=== PATIENT | female | born 1930 | race Caucasian/White ===

== ENCOUNTER 2017-06-16 13:03 | Emergency (ER) | payer BC ==
[2017-06-16 13:18] VITALS: BP 173/48; PULSE 66; TEMP 97.9; BMI 40.1
[2017-06-16] MEDS ORDERED: ACETAMINOPHEN WITH CODEINE 300MG/30MG TABLET PO ONE (13:53)
[2017-06-16] MEDS ORDERED: ACETAMINOPHEN WITH CODEINE 300MG/30MG TABLET ONE (13:56)
--- NOTE | 2017-06-16 14:11 | PDOC ---
History of Present Illness - General Chief Complaint: Back Pain Stated Complaint: INJURY Time Seen by Provider: 06/16/17 13:33 History Source: Patient Exam Limitations: No Limitations - History of Present Illness Initial Comments: 06/16/17 14:08 87 yr female lost her balance and fell on 06/05/17 injuring her buttock. Pt has continued pain to her buttock and right buttock to leg. neg abd pain neg chest or upper back pain. Pt taking tylenol without relief at home. Past History - Past Medical History Allergies/Adverse Reactions: Allergies Allergy/AdvReac Type Severity Reaction Status Date / Time metronidazole [From Flagyl] Allergy Severe Swelling Verified 06/16/17 13:12 Home Medications: Ambulatory Orders Allopurinol [Zyloprim -] 200 mg PO DAILY 03/19/14 Amlodipine Besylate [Norvasc -] 10 mg PO DAILY 03/19/14 Aspirin [ASA -] 325 mg PO DAILY 03/19/14 Atorvastatin Ca [Lipitor] 40 mg PO HS 03/19/14 Cholecalciferol (Vitamin D3) [Vitamin D3] 1,000 unit PO DAILY 03/19/14 Enalapril Maleate [Vasotec -] 20 mg PO BID 03/19/14 Furosemide [Lasix -] 20 mg PO DAILY 03/19/14 Glipizide Xl [Glucotrol Xl -] 2.5 mg PO DAILY 03/19/14 Losartan/Hydrochlorothiazide [Losartan-Hctz 100-12.5 mg Tab] 1 each PO DAILY Metoprolol Succinate [Toprol XL -] 100 mg PO DAILY 03/19/14 Multivitamins [Multivit ([facility] Formulary)] 1 tab PO DAILY 03/19/14 Guar Gum [Benefiber] 1 each PO BID #0 packet 05/21/14 Acetaminophen W/ Codeine #3 [Tylenol # 3 -] 1 - 2 tab PO Q6H PRN #12 tablet MDD 6 tabs 06/16/17 Anemia: No Asthma: No Cancer: No Cardiac Disorders: Yes (STENT 14 YRS AGO) CVA: No COPD: No CHF: No Dementia: No Diabetes: Yes GI Disorders: No Disorders: Yes (ONE FUNCTIONING KIDNEY) HTN: Yes Hypercholesterolemia: Yes Liver Disease: No Seizures: No Thyroid Disease: No - Surgical History Abdominal Surgery: No Appendectomy: Yes Cardiac Surgery: Yes (ANGIO) Cholecystectomy: No Lung Surgery: No Neurologic Surgery: No Orthopedic Surgery: No - Suicide/Smoking/Psychosocial Hx Smoking Status: No Smoking History: Never smoked Have you smoked in the past 12 months: No Number of Cigarettes Smoked Daily: 0 Hx Alcohol Use: No Drug/Substance Use Hx: No Substance Use Type: None *Physical Exam - Vital Signs Last Vital Signs Temp Pulse Resp BP Pulse Ox 97.9 F 66 22 173/48 99 06/16/17 13:13 06/16/17 13:13 06/16/17 13:13 06/16/17 13:13 06/16/17 13:13 - Physical Exam General Appearance: Yes: Nourished, Appropriately Dressed HEENT: positive: EOMI, JACLYN Neck: positive: Supple Respiratory/Chest: positive: Lungs Clear, Normal Breath Sounds Cardiovascular: positive: Regular Rhythm, Regular Rate Gastrointestinal/Abdominal: positive: Normal Bowel Sounds, Soft. negative: Tender Lymphatic: negative: Adenopathy Musculoskeletal: positive: Normal Inspection, Vertebral Tenderness (coccyx bone , skin intact no bruising or deformity no swelling ) Integumentary: positive: Normal Color, Dry, Warm, Bruising (right upper arm non tender) Neurologic: positive: Fully Oriented, Alert, Normal Mood/Affect, Normal Response , Motor Strength 5/5 ED Treatment Course - RADIOLOGY Radiology Studies Ordered: Category Date Time Status LUMBAR SPINE CT W/O CONTRAST [CT] Stat CT Scan 06/16/17 13:[address] WITHOUT CONTRAST [CT] Stat CT Scan 06/16/17 13:53 Ordered - Medications Given in the ED: ED Medications Discontinued Medications Generic Name Dose Route Start Last Admin Trade Name Amina PRN Reason Stop Dose Admin Acetaminophen/Codeine Phosphate 1 tab 06/16/17 13:53 06/16/17 13:57 Tylenol # 3 - PO 06/16/17 13:54 1 tab ONCE ONE Administration Medical Decision Making - Medical Decision Making 06/16/17 14:09 cc: lost balance on the step in her apt building while turning around and fell backwards landing on her buttock pt has continued pain to her tailbone no urine or bowel dysfunction no abd pain pain with walking to her right posterior leg and buttock no evidence of bruising noted. pt has bruise to his upper arm that is healing well pt ambulates with a cane pt has no lower back/CVA tenderness 06/16/17 16:[address] is negative lumbar CT is negative 06/16/17 16:43 *DC/Admit/Observation/Transfer Diagnosis at time of Disposition: Coccyx contusion Qualifiers: Encounter type: initial encounter Qualified Code(s): S30.0XXA - Contusion of lower back and pelvis, initial encounter - Discharge Dispostion Disposition: HOME Condition at time of disposition: Good - Prescriptions Prescriptions: Acetaminophen W/ Codeine #3 [Tylenol # 3 -] 1 - 2 tab PO Q6H PRN #12 tablet MDD 6 tabs PRN Reason: Severe Pain - Referrals Referrals: Walker Padilla MD [Primary Care Provider] - - Patient Instructions Additional Instructions: follow with your medical doctor on Sunday or Sunday take tylenol #3 for severe pain eat with this medicine do not drink alcohol, drive or operate machinery while taking this medication - Post Discharge Activity
== END 2017-06-16 16:49 | disposition home or self-care (01) ==
LOC: JERFT 13:03
DX: S30.0XXA Contusion of lower back and pelvis, initial encounter (principal); W10.8XXA Fall (on) (from) other stairs and steps, initial encounter; Y93.89 Activity, other specified; Y92.038 Other place in apartment as the place of occurrence of the external cause; I25.10 Atherosclerotic heart disease of native coronary artery without angina pectoris; I10 Essential (primary) hypertension; Z95.5 Presence of coronary angioplasty implant and graft; E11.9 Type 2 diabetes mellitus without complications; Z79.84 Long term (current) use of oral hypoglycemic drugs; E78.00 Pure hypercholesterolemia, unspecified; N28.89 Other specified disorders of kidney and ureter
CPT/HCPCS: 72131-TC; 72192-TC; 99281-25

== ENCOUNTER 2018-02-13 16:49 | Inpatient (IN) | payer BC ==
--- NOTE | 2018-02-13 17:02 | PDOC ---
Rapid Medical Evaluation Time Seen by Provider: 02/13/18 16:59 Medical Evaluation: Allergies Allergy/AdvReac Type Severity Reaction Status Date / Time metronidazole [From Flagyl] Allergy Severe Swelling Verified 06/16/17 13:12 I have performed a brief in-person evaluation of this patient. The patient presents with a chief complaint of: cough, hoarse voice x [address] Woodward Sunday Pertinent physical exam findings: dry cough. I have ordered the following: labs, CXR, UA The patient will proceed to the ED for further evaluation. Discharge Disposition - Diagnosis Cough, Hoarseness of voice - Referrals - Patient Instructions - Post Discharge Activity
--- NOTE | 2018-02-13 17:44 | PDOC ---
History of Present Illness - General Chief Complaint: Cold Symptoms Stated Complaint: HEAD PAIN Time Seen by Provider: 02/13/18 16:59 - History of Present Illness Initial Comments: This is an 88-year-old female with a significant past medical history. She has a history of breast cancer status post mastectomy one year ago. History of diabetes type 2, history of coronary artery disease with stents, history of renal atrophy. She presents for evaluation of 4 days of hoarseness in her voice headache intermittent chest pressure and abdominal pain. She states she also had a fever at home of 100. She complains of night sweats and chills as well. 02/13/18 17:40 Past History - Past Medical History Allergies/Adverse Reactions: Allergies Allergy/AdvReac Type Severity Reaction Status Date / Time metronidazole [From Flagyl] Allergy Severe Swelling Verified 02/13/18 17:02 Home Medications: Ambulatory Orders Allopurinol [Zyloprim -] 200 mg PO DAILY 03/19/14 Amlodipine Besylate [Norvasc -] 10 mg PO DAILY 03/19/14 Aspirin [ASA -] 325 mg PO DAILY 03/19/14 Atorvastatin Ca [Lipitor] 40 mg PO HS 03/19/14 Cholecalciferol (Vitamin D3) [Vitamin D3] 1,000 unit PO DAILY 03/19/14 Enalapril Maleate [Vasotec -] 20 mg PO BID 03/19/14 Furosemide [Lasix -] 20 mg PO DAILY 03/19/14 Glipizide Xl [Glucotrol Xl -] 2.5 mg PO DAILY 03/19/14 Losartan/Hydrochlorothiazide [Losartan-Hctz 100-12.5 mg Tab] 1 each PO DAILY Metoprolol Succinate [Toprol XL -] 100 mg PO DAILY 03/19/14 Multivitamins [Multivit ([facility] Formulary)] 1 tab PO DAILY 03/19/14 Guar Gum [Benefiber] 1 each PO BID #0 packet 05/21/14 Acetaminophen W/ Codeine #3 [Tylenol # 3 -] 1 - 2 tab PO Q6H PRN #12 tablet MDD 6 tabs 06/16/17 Anemia: No Asthma: No Cancer: No Cardiac Disorders: Yes (STENT 14 YRS AGO) CVA: No COPD: No CHF: No Dementia: No Diabetes: Yes GI Disorders: No Disorders: Yes (ONE FUNCTIONING KIDNEY) HTN: Yes Hypercholesterolemia: Yes Liver Disease: No Seizures: No Thyroid Disease: No - Surgical History Abdominal Surgery: No Appendectomy: Yes Cardiac Surgery: Yes (ANGIO) Cholecystectomy: No Lung Surgery: No Neurologic Surgery: No Orthopedic Surgery: No - Suicide/Smoking/Psychosocial Hx Smoking Status: No Smoking History: Never smoked Have you smoked in the past 12 months: No Number of Cigarettes Smoked Daily: 0 Information on smoking cessation initiated: No Hx Alcohol Use: No Drug/Substance Use Hx: No Substance Use Type: None Review of Systems - Review of Systems Constitutional: Yes: See HPI, Chills, Fever, Loss of Appetite, Night Sweats, Weakness HEENTM: Yes: Throat Pain Respiratory: Yes: Cough, Shortness of Breath Cardiac (ROS): Yes: See HPI, Chest Pain, Chest Tightness ABD/GI: Yes: Poor Appetite : No: Burning, Dysuria, Pain, Urgency Musculoskeletal: Yes: Muscle Pain, Muscle Weakness Integumentary: No: Bruising, Change in Color Neurological: Yes: Headache Psychiatric: Yes: Change in Appetite Endocrine: Yes: Increased Urine. No: Excessive Sweating *Physical Exam - Vital Signs Last Vital Signs Temp Pulse Resp BP Pulse Ox 98.0 F 78 16 138/78 100 02/13/18 17:01 02/13/18 17:01 02/13/18 17:01 02/13/18 17:01 02/13/18 17:01 - Physical Exam Comments: GENERAL: The patient is awake, alert, and fully oriented, in no acute distress. HEAD: Normal with no signs of trauma. EYES: Pupils equal, round and reactive to light, extraocular movements intact, sclera anicteric, conjunctiva clear. ENT: Ears normal, nares patent, oropharynx clear without exudates. Moist mucous membranes. NECK: Normal range of motion, supple without lymphadenopathy, JVD, or masses. LUNGS: Breath sounds equal, clear to auscultation bilaterally. No wheezes, and no crackles. HEART: Regular rate and rhythm, normal S1 and S2 without murmur, rub or gallop. ABDOMEN: Soft, right upper quadrant tenderness, normoactive bowel sounds. No guarding, no rebound. No masses. EXTREMITIES: Normal range of motion, no edema. No clubbing or cyanosis. No cords, erythema, or tenderness. There is 1+ symmetric pitting edema the anterior lower legs NEUROLOGICAL: Cranial nerves II through XII grossly intact. Normal speech, normal gait. PSYCH: Normal mood, normal affect. SKIN: Warm, Dry, normal turgor, no rashes or lesions noted. 02/13/18 17:43 Medical Decision Making - Medical Decision Making Is patient requires a cardiac workup I will transfer to the main emergency room. 02/13/18 17:43 *DC/Admit/Observation/Transfer Diagnosis at time of Disposition: Cough, Hoarseness of voice, Chest pressure - Referrals - Patient Instructions - Post Discharge Activity
[2018-02-13 19:29] LABS: HEMATOCRIT 33.1 % (32.4-45.2); HEMOGLOBIN 10.7 GM/dL (10.7-15.3); LYMPH % 16.1 % (8-40); MCH 31.7 pg (25.7-33.7); MCHC 32.3 g/dl (32.0-36.0); MEAN CELL VOLUME 98.3 fl (80-96); MEAN PLT VOLUME 10.5 fl (7.5-11.1); MONO % 6.6 % (3.8-10.2); NEUT % 74.3 % (42.8-82.8); PLATELET COUNT 189 K/MM3 (134-434); RBC 3.37 M/mm3 (3.60-5.2); WHITE BLOOD COUNT 7.4 K/mm3 (4.0-10.0)
[2018-02-13 20:38] LABS: URINE APPEARANCE CLEAR; URINE BILIRUBIN NEGATIVE (<2.0 mg/dL); URINE COLOR STRAW; URINE GLUCOSE (UA) 1+ (NEGATIVE); URINE KETONE NEGATIVE (NEGATIVE); URINE LEUK ESTERASE NEGATIVE (NEGATIVE); URINE NITRITE NEGATIVE (NEGATIVE); URINE UROBILINOGEN NEGATIVE mg/dL (0.2-1.0)
[2018-02-13 21:06] LABS: ALBUMIN 2.9 g/dl (3.4-5.0); ANION GAP 9 (8-16); BLOOD UREA NITROGEN 55 mg/dL (7-18); CALCIUM 8.7 mg/dL (8.5-10.1); CHLORIDE 115 mmol/L (98-107); CO2 25 mmol/L (21-32); CREATININE 2.8 mg/dL (0.55-1.02); GLUCOSE,RANDOM 80 mg/dL (74-106); POTASSIUM 4.3 mmol/L (3.5-5.1); SGOT/AST 15 U/L (15-37); SGPT/ALT 15 U/L (12-78); SODIUM 149 mmol/L (136-145)
[2018-02-13 21:07] LABS: ALK PHOS 68 U/L (45-117); BILIRUBIN,TOTAL 0.5 mg/dL (0.2-1.0); TOT PROT 6.2 g/dl (6.4-8.2)
--- NOTE | 2018-02-13 21:25 | PDOC ---
*Physical Exam - Vital Signs Last Vital Signs Temp Pulse Resp BP Pulse Ox 98.0 F 78 16 138/78 100 02/13/18 17:01 02/13/18 17:01 02/13/18 17:01 02/13/18 17:01 02/13/18 17:01 - Physical Exam General Appearance: Yes: Nourished <KathiaSebastien - Last Filed: 02/14/18 00:44> - Vital Signs Last Vital Signs Temp Pulse Resp BP Pulse Ox 98.0 F 78 16 138/78 100 02/13/18 17:01 02/13/18 17:01 02/13/18 17:01 02/13/18 17:01 02/13/18 17:01 - Physical Exam Comments: 02/13/18 21:33 GENERAL: Well developed, well nourished. Awake and alert. No acute distress. HEENT: Normocephalic, atraumatic. PERRLA, EOMI. No conjunctival pallor. Sclera are non- icteric. Moist mucous membranes. Oropharynx is clear. NECK: Supple. Full ROM. No JVD. Carotid pulses 2+ and symmetric, without bruits. No thyromegaly. No lymphadenopathy. CARDIOVASCULAR: Regular rate and rhythm. No murmurs, rubs, or gallops. Distal pulses are 2+ and symmetric. PULMONARY: No evidence of respiratory distress. Lungs clear to auscultation bilaterally. No wheezing, rales or rhonchi. ABDOMINAL: Soft. Non-tender. Non-distended. No rebound or guarding. No organomegaly. Normoactive bowel sounds. MUSCULOSKELETAL Normal range of motion at all joints. No bony deformities or tenderness. No CVA tenderness. EXTREMITIES: No cyanosis. No clubbing. No edema. No calf tenderness. SKIN: Warm and dry. Normal capillary refill. No rashes. No jaundice. NEUROLOGICAL: Alert, awake, appropriate. Cranial nerves 2-12 intact. No deficits to light touch and temperature in face, upper extremities and lower extremities. No motor deficits in the in face, upper extremities and lower extremities. Normoreflexic in the upper and lower extremities. Normal speech. Toes are downgoing bilaterally. PSYCHIATRIC: Cooperative. Good eye contact. Appropriate mood and affect. <Gage Manley - Last Filed: 02/14/18 01:40> Heart Score/ECG Review #1 02/14/18 01:40 EKG done at 17:31 Vent rate 65 bpm Normal sinus rhythm Left axis deviation Left bundle branch block Abnormal ECG <Gage Manley - Last Filed: 02/14/18 01:40> ED Treatment Course - LABORATORY CBC & Chemistry Diagram: 02/13/18 19:05 02/13/18 20:12 - ADDITIONAL ORDERS Additional order review: Laboratory Results 02/13/18 02/13/18 02/13/18 20:12 20:12 19:05 Sodium 149 H Cancelled Potassium 4.3 Cancelled Chloride 115 H Cancelled Carbon Dioxide 25 Cancelled Anion Gap 9 Cancelled BUN 55 H Cancelled Creatinine 2.8 H Cancelled Creat Clearance w eGFR 15.98 Cancelled Random Glucose 80 Cancelled Calcium 8.7 Cancelled Total Bilirubin 0.5 Cancelled AST 15 Cancelled ALT 15 Cancelled Alkaline Phosphatase 68 Cancelled Creatine Kinase 55 Cancelled Troponin I 0.04 Cancelled Total Protein 6.2 L Cancelled Albumin 2.9 L Cancelled 02/13/18 19:05 RBC 3.37 L MCV 98.3 H MCHC 32.3 RDW 14.0 MPV 10.5 Neutrophils % 74.3 Lymphocytes % 16.1 D Monocytes % 6.6 Eosinophils % 2.0 Basophils % 1.0 <Sebastien Seo - Last Filed: 02/14/18 00:44> - LABORATORY CBC & Chemistry Diagram: 02/13/18 19:05 02/13/18 20:12 - ADDITIONAL ORDERS Additional order review: Laboratory Results 02/13/18 02/13/18 02/13/18 20:12 20:12 19:05 Sodium 149 H Cancelled Potassium 4.3 Cancelled Chloride 115 H Cancelled Carbon Dioxide 25 Cancelled Anion Gap 9 Cancelled BUN 55 H Cancelled Creatinine 2.8 H Cancelled Creat Clearance w eGFR 15.98 Cancelled Random Glucose 80 Cancelled Calcium 8.7 Cancelled Total Bilirubin 0.5 Cancelled AST 15 Cancelled ALT 15 Cancelled Alkaline Phosphatase 68 Cancelled Creatine Kinase 55 Cancelled Troponin I 0.04 Cancelled Total Protein 6.2 L Cancelled Albumin 2.9 L Cancelled 02/13/18 19:05 RBC 3.37 L MCV 98.3 H MCHC 32.3 RDW 14.0 MPV 10.5 Neutrophils % 74.3 Lymphocytes % 16.1 D Monocytes % 6.6 Eosinophils % 2.0 Basophils % 1.0 <Gage Manley - Last Filed: 02/14/18 01:40> Progress Note - Progress Note Progress Note: The patient is an 88 year old female with a significant PMH of HTN, hyperlipidemia, and cardiac stent who presents to the emergency department from [facility] for evaluation of increasingly worsening headache with associated ear pressure for the past few weeks. She also notes associated periodic nasal congestion with her ear pressure which she states rarely drains. She describes her headache as an intermittent pressure localized in the temporal regions bilaterally which has been steadily worsening, prompting her visit. She also reports some mild intermittent chest pressure every now and then but denies chest pain. The patient notes she has been following with Dr. Woodward who has told her she has fluid in her ears. She states she has a follow up appointment soon. The patient denies shortness of breath and dizziness. Denies fever, chills, nausea, vomit, diarrhea and constipation. Denies dysuria, frequency, urgency and hematuria. Allergies: Metronidazole Past surgical history: Angioplasty. Appendectomy. Social history: No reported cigarette, alcohol, or drug use. PCP: Dr. Padilla ROS: CONSTITUTIONAL: Absent: fever, chills, diaphoresis, generalized weakness, malaise, loss of appetite HEENT: (+) Ear pressure. (+) Nasal congestion. Absent: rhinorrhea, throat pain, throat swelling, difficulty swallowing, mouth swelling, ear pain, eye pain, visual Changes CARDIOVASCULAR: (+) Chest pressure. Absent: chest pain, syncope, palpitations, irregular heart rate, lightheadedness , peripheral edema RESPIRATORY: Absent: cough, shortness of breath, dyspnea with exertion, orthopnea, wheezing, stridor, hemoptysis GASTROINTESTINAL: Absent: abdominal pain, abdominal distension, nausea, vomiting, diarrhea, constipation, melena, hematochezia GENITOURINARY: Absent: dysuria, frequency, urgency, hesitancy, hematuria, flank pain, genital pain MUSCULOSKELETAL: Absent: myalgia, arthralgia, joint swelling SKIN: Absent: rash, itching, pallor HEMATOLOGIC/IMMUNOLOGIC: Absent: easy bleeding, easy bruising, lymphadenopathy, frequent infections ENDOCRINE: Absent: unexplained weight gain, unexplained weight loss, heat intolerance, cold intolerance NEUROLOGIC: (+) Temporal headache. Absent: focal weakness or paresthesias, dizziness, unsteady gait, seizure, mental status changes, bladder or bowel incontinence PSYCHIATRIC: Absent: anxiety, depression, suicidal or homicidal ideation, hallucinations. <Gage Manley - Last Filed: 02/14/18 01:40> *DC/Admit/Observation/Transfer - Discharge Dispostion Decision to Admit order: Yes <Sebastien Seo - Last Filed: 02/14/18 00:44> - Attestations Scribe Attestion: 02/13/18 21:33 Documentation prepared by Gage Manley, acting as biomedical equipment specialist for Sebastien Seo DO. <Gage Manley - Last Filed: 02/14/18 01:40> Diagnosis at time of Disposition: Cough, Hoarseness of voice, Chest pressure, ISELA (acute kidney injury) - Discharge Dispostion Condition at time of disposition: Stable - Referrals Referrals: Walker Padlila MD [Primary Care Provider] - - Patient Instructions - Post Discharge Activity
[2018-02-13 21:33] LABS: URINE PROTEIN 3+ (NEGATIVE)
[2018-02-13 22:32] LABS: EPI CELLS RARE /HPF (FEW); URINE MUCUS RARE
--- NOTE | 2018-02-14 00:58 | HP ---
CHIEF COMPLAINT: Headache, Chest Pain PCP: Dr. Padilla HISTORY OF PRESENT ILLNESS: This is a 88 y/o woman who presents to the ED with multiple complaints headache , midsternal chest pain with coughing x today. Patient describes the chest pain as non-radiating, sharp, worse with cough. Patient reports being treated for ear fullness by her ENT for over a month, with intermittent relief. Patient reports having a subjective fever 100.0 at home. Patient denies chills, SOB, AP , N/V/D, constipation, dysuria. ER course was notable for: (1) Trop I 0.04 (2) BUN 55, Cr 2.8 (3) Chest Xray- Cardiomegaly, Atelectasis right base, RUL, L- Lung clear Recent Travel: None PAST MEDICAL HISTORY: DM CKD (renal atrophy) DAGOBERTO DJD HLD HTN Breast Ca (no Chemo, no RT) Depression PAST SURGICAL HISTORY: R- partial mastectomy Social History: Smoking: Never Alcohol: None Drugs: None Family History: Allergies metronidazole [From Flagyl] Allergy (Severe, Verified 02/13/18 17:02) Swelling HOME MEDICATIONS: Home Medications Medication Instructions Recorded Allopurinol [Zyloprim -] 200 mg PO DAILY 03/19/14 Amlodipine Besylate [Norvasc -] 10 mg PO DAILY 03/19/14 Aspirin [ASA -] 325 mg PO DAILY 03/19/14 Atorvastatin Ca [Lipitor] 40 mg PO HS 03/19/14 Cholecalciferol (Vitamin D3) 1,000 unit PO DAILY 03/19/14 [Vitamin D3] Enalapril Maleate [Vasotec -] 20 mg PO BID 03/19/14 Furosemide [Lasix -] 20 mg PO DAILY 03/19/14 Glipizide Xl [Glucotrol Xl -] 2.5 mg PO DAILY 03/19/14 Losartan/Hydrochlorothiazide 1 each PO DAILY 03/19/14 [Losartan-Hctz 100-12.5 mg Tab] Metoprolol Succinate [Toprol XL -] 100 mg PO DAILY 03/19/14 Multivitamins [Multivit ([facility] 1 tab PO DAILY 03/19/14 Formulary)] Guar Gum [Benefiber] 1 each PO BID #0 packet 05/21/14 Calcium Carbonate/Vitamin D3 1 each PO DAILY 02/13/18 [Calcium 500 + Vit D 200 Caplet] Levothyroxine [Synthroid -] 25 mcg PO DAILY 02/13/18 REVIEW OF SYSTEMS CONSTITUTIONAL: fever, Absent: chills, diaphoresis, generalized weakness, malaise, loss of appetite, weight change HEENT: ear fullness Absent: rhinorrhea, nasal congestion, throat pain, throat swelling, difficulty swallowing, mouth swelling, ear pain, eye pain, visual changes CARDIOVASCULAR: chest pain Absent: syncope, palpitations, irregular heart rate, lightheadedness, peripheral edema RESPIRATORY: cough Absent: shortness of breath, dyspnea with exertion, orthopnea, wheezing, stridor , hemoptysis GASTROINTESTINAL: Absent: abdominal pain, abdominal distension, nausea, vomiting, diarrhea, constipation, melena, hematochezia GENITOURINARY: Absent: dysuria, frequency, urgency, hesitancy, hematuria, flank pain, genital pain MUSCULOSKELETAL: Absent: myalgia, arthralgia, joint swelling, back pain, neck pain SKIN: Absent: rash, itching, pallor HEMATOLOGIC/IMMUNOLOGIC: Absent: easy bleeding, easy bruising, lymphadenopathy, frequent infections ENDOCRINE: Absent: unexplained weight gain, unexplained weight loss, heat intolerance, cold intolerance NEUROLOGIC: headache Absent: focal weakness or paresthesias, dizziness, unsteady gait, seizure, mental status changes, bladder or bowel incontinence PSYCHIATRIC: Absent: anxiety, depression, suicidal or homicidal ideation, hallucinations. PHYSICAL EXAMINATION Vital Signs - 24 hr 02/13/18 02/13/18 17:01 21:37 Temperature 98.0 F Pulse Rate 78 Pulse Rate [ 94 H Apical] Respiratory 16 21 Rate Blood Pressure 138/78 Blood Pressure 157/80 [Left Arm] O2 Sat by Pulse 100 98 Oximetry (%) GENERAL: Awake, alert, and fully oriented, in no acute distress. HEAD: Normal with no signs of trauma. EYES: Pupils equal, round and reactive to light, extraocular movements intact, sclera anicteric, conjunctiva clear. No lid lag. EARS, NOSE, THROAT: Ears normal, nares patent, oropharynx clear without exudates. Dry mucous membranes. NECK: Normal range of motion, supple without lymphadenopathy, JVD, or masses. LUNGS: Breath sounds diminished to right base. No wheezes, and no crackles. No accessory muscle use. HEART: Regular rate and rhythm, normal S1 and S2 without murmur, rub or gallop. ABDOMEN: Obese, soft, nontender, not distended, normoactive bowel sounds, no guarding, no rebound, no masses. No hepatomegaly or splenomegaly. MUSCULOSKELETAL: Normal range of motion at all joints. No bony deformities or tenderness. No CVA tenderness. UPPER EXTREMITIES: 2+ pulses, warm, well-perfused. No cyanosis. No clubbing. No peripheral edema. LOWER EXTREMITIES: 2+ pulses, warm, well-perfused. No calf tenderness. No peripheral edema. NEUROLOGICAL: Cranial nerves II-XII intact. Normal speech. Gait not observed. PSYCHIATRIC: Cooperative. Good eye contact. Appropriate mood and affect. SKIN: Warm, dry, normal turgor, no rashes or lesions noted, normal capillary refill. Laboratory Results - last 24 hr 02/13/18 02/13/18 02/13/18 19:05 19:05 20:12 WBC 7.4 RBC 3.37 L Hgb 10.7 Hct 33.1 MCV 98.3 H MCH 31.7 MCHC 32.3 RDW 14.0 Plt Count 189 D MPV 10.5 Absolute Neuts (auto) 5.5 Neutrophils % 74.3 Lymphocytes % 16.1 D Monocytes % 6.6 Eosinophils % 2.0 Basophils % 1.0 Nucleated RBC % 0 Sodium Cancelled Potassium Cancelled Chloride Cancelled Carbon Dioxide Cancelled Anion Gap Cancelled BUN Cancelled Creatinine Cancelled Creat Clearance w eGFR Cancelled Random Glucose Cancelled Calcium Cancelled Total Bilirubin Cancelled AST Cancelled ALT Cancelled Alkaline Phosphatase Cancelled Creatine Kinase Cancelled Troponin I Cancelled Total Protein Cancelled Albumin Cancelled Urine Color Straw Urine Appearance Clear Urine pH 6.0 Ur Specific [place] 1.013 Urine Protein 3+ H Urine Glucose (UA) 1+ H Urine Ketones Negative Urine Blood Negative Urine Nitrite Negative Urine Bilirubin Negative Urine Urobilinogen Negative Ur Leukocyte Esterase Negative Urine WBC (Auto) 2 Urine RBC (Auto) <1 Ur Epithelial Cells Rare Urine Mucus Rare 02/13/18 02/13/18 20:12 20:12 WBC RBC Hgb Hct MCV MCH MCHC RDW Plt Count MPV Absolute Neuts (auto) Neutrophils % Lymphocytes % Monocytes % Eosinophils % Basophils % Nucleated RBC % Sodium 149 H Potassium 4.3 Chloride 115 H Carbon Dioxide 25 Anion Gap 9 BUN 55 H Creatinine 2.8 H Creat Clearance w eGFR 15.98 Random Glucose 80 Calcium 8.7 Total Bilirubin 0.5 AST 15 ALT 15 Alkaline Phosphatase 68 Creatine Kinase 55 Troponin I 0.04 Total Protein 6.2 L Albumin 2.9 L Urine Color Urine Appearance Urine pH Ur Specific [place] Urine Protein Urine Glucose (UA) Urine Ketones Urine Blood Urine Nitrite Urine Bilirubin Urine Urobilinogen Ur Leukocyte Esterase Urine WBC (Auto) Urine RBC (Auto) Ur Epithelial Cells Urine Mucus ASSESSMENT/PLAN: 88 y/o woman Placed in Observation for ISELA, Chest Pain r/o ACS. Plan: Place on Observation less likely ACS, CP increased on palpation likely costeochrondritis vs PNA Serial enzymes Appreciate Cardiology consult Appreciate Nephrology consult, hx renal atrophy, Cr increased compared to baseline Avoid nephrotoxic agents Hold Glipzide, HCTZ, Vasotec, Allupurinol 2/2 ISELA Continue other home meds Monitor CBC, BMP Echo Lipid Panel Problem List - Problem (1) Diabetes mellitus Code(s): E11.9 - TYPE 2 DIABETES MELLITUS WITHOUT COMPLICATIONS (2) HLD (hyperlipidemia) Code(s): E78.5 - HYPERLIPIDEMIA, UNSPECIFIED (3) HTN (hypertension) Code(s): I10 - ESSENTIAL (PRIMARY) HYPERTENSION (4) ISELA (acute kidney injury) Code(s): N17.9 - ACUTE KIDNEY FAILURE, UNSPECIFIED (5) Chest pressure Code(s): R07.89 - OTHER CHEST PAIN (6) Cough Code(s): R05 - COUGH Visit type - Emergency Visit Emergency Visit: Yes ED Registration Date: 02/13/18 Care time: The patient presented to the Emergency Department on the above date and was hospitalized for further evaluation of their emergent condition. - New Patient This patient is new to me today: Yes Date on this admission: 02/13/18 - Critical Care Critical Care patient: No Hospitalist Screening - Colonoscopy Questionnaire Colonoscopy Questionnaire: Colonoscopy Questionnaire - Patient: 50 - 75 years old and never had a screening colonoscopy: Unknown History of colon or rectal polyps, or CA: Unknown History of IBD, Crohn's disease or UC: Unknown History of abdominal radiation therapy as a child: Unknown - Relative: 1 with colon or rectal CA, or polyps at age 60 or younger: Unknown Colon or rectal CA diagnosed at age 45 or younger: Unknown Multiple relatives with colon or rectal CA: Unknown - Outcome: Screening Result: Negative Screen
[2018-02-14] MEDS ORDERED: SODIUM CHLORIDE 1,000 ML IV SCH ×2 (01:00→07:06)
[2018-02-14 06:49] LABS: BASO % 1.1 % (0-2.0); EOS % 1.1 % (0-4.5); HEMATOCRIT 31.6 % (32.4-45.2); HEMOGLOBIN 10.6 GM/dL (10.7-15.3); LYMPH % 16.8 % (8-40); MCH 32.7 pg (25.7-33.7); MCHC 33.4 g/dl (32.0-36.0); MEAN CELL VOLUME 97.9 fl (80-96); MEAN PLT VOLUME 10.5 fl (7.5-11.1); MONO % 5.7 % (3.8-10.2); NEUT % 75.3 % (42.8-82.8); PLATELET COUNT 166 K/MM3 (134-434); RBC 3.23 M/mm3 (3.60-5.2); RDW 13.7 % (11.6-15.6); WHITE BLOOD COUNT 9.6 K/mm3 (4.0-10.0)
[2018-02-14] MEDS: INSULIN SLIDING SCALE (NOVOLOG) 1 VIAL SQ SCH ×3 (06:57→18:03)
[2018-02-14] MEDS: LEVOTHYROXINE NA 25 MCG TABLET (FP) PO SCH (06:58)
[2018-02-14 07:03] LABS: CHLORIDE 115 mmol/L (98-107); POTASSIUM 4.3 mmol/L (3.5-5.1); SODIUM 149 mmol/L (136-145)
[2018-02-14 07:14] LABS: ANION GAP 13 (8-16); BLOOD UREA NITROGEN 51 mg/dL (7-18); CALCIUM 8.7 mg/dL (8.5-10.1); CO2 21 mmol/L (21-32); CREATININE 2.7 mg/dL (0.55-1.02); GLUCOSE,RANDOM 100 mg/dL (74-106)
[2018-02-14] MEDS ORDERED: ONDANSETRON 4 MG/2 ML VIAL IVPB PRN (08:36)
--- NOTE | 2018-02-14 08:36 | PN ---
Progress Note (short form) - Note Progress Note: Dr. Sweet to document today. A lot of nausea today.Renal lab is higher than usual but not much higher; follows with Dr. Araujo. No Headache today. CT head; sinus OK Chest CT: pleural fluid and ? infiltrate; Renal and Cardiology consult placed.
[2018-02-14] MEDS ORDERED: FUROSEMIDE 40 MG/4 ML INJECTABLE VIAL ONE (10:11)
[2018-02-14] MEDS: amLODIPine BESYLATE 10 MG TABLET (FP) PO SCH (10:29)
--- NOTE | 2018-02-14 10:30 | CON.CARD ---
Consult Consult Specialty:: Cardiology Referred by:: Walker Padilla MD Reason for Consultation:: Dyspnea - History of Present Illness Chief Complaint: Dyspnea History of Present Illness: 88 y/o woman h/o CAD s/p BMS LAD 11/22/1996, DM, HTN, hyperlipidemia, diastolic dysfunction, hypothyroidism, remote history PAF->SR [id number] on no ac, last saw Dr. Ruiz 01/22/2017 initally admitted for multiple complaints headache, midsternal chest pain with coughing overnight, Patient describes the chest pain as non-radiating, sharp, worse with cough, subjective fevers, noted to have acute on CKD, started on IVF overnight, reports dyspnea and orthopnea in AM, IVF d/amadou and IV Lasix administered with improvement in symptoms. Recent Travel: None PAST MEDICAL HISTORY: DM CKD (renal atrophy) DAGOBERTO DJD HLD HTN Breast Ca (no Chemo, no RT) Depression PAST SURGICAL HISTORY: R- partial mastectomy Social History: Smoking: Never Alcohol: None Drugs: None - History Source History Provided By: Medical Record Limitations to Obtaining History: Clinical Condition - Past Medical History Cardio/Vascular: Yes: CAD, CHF, HTN, Hyperlipdemia ...: No - Alcohol/Substance Use Hx Alcohol Use: No - Smoking History Smoking history: Never smoked Have you smoked in the past 12 months: No Aproximately how many cigarettes per day: 0 Home Medications - Allergies Allergies/Adverse Reactions: Allergies Allergy/AdvReac Type Severity Reaction Status Date / Time metronidazole [From Flagyl] Allergy Severe Swelling Verified 02/13/18 17:02 - Home Medications Home Medications: Ambulatory Orders Allopurinol [Zyloprim -] 200 mg PO DAILY 03/19/14 Amlodipine Besylate [Norvasc -] 10 mg PO DAILY 03/19/14 Aspirin [ASA -] 325 mg PO DAILY 03/19/14 Atorvastatin Ca [Lipitor] 40 mg PO HS 03/19/14 Cholecalciferol (Vitamin D3) [Vitamin D3] 1,000 unit PO DAILY 03/19/14 Enalapril Maleate [Vasotec -] 20 mg PO BID 03/19/14 Furosemide [Lasix -] 20 mg PO DAILY 03/19/14 Glipizide Xl [Glucotrol Xl -] 2.5 mg PO DAILY 03/19/14 Losartan/Hydrochlorothiazide [Losartan-Hctz 100-12.5 mg Tab] 1 each PO DAILY Metoprolol Succinate [Toprol XL -] 100 mg PO DAILY 03/19/14 Multivitamins [Multivit ([facility] Formulary)] 1 tab PO DAILY 03/19/14 Guar Gum [Benefiber] 1 each PO BID #0 packet 05/21/14 Calcium Carbonate/Vitamin D3 [Calcium 500 + Vit D 200 Caplet] 1 each PO DAILY Levothyroxine [Synthroid -] 25 mcg PO DAILY 02/13/18 Review of Systems - Review of Systems Cardiovascular: reports: Chest Pain Respiratory: reports: Orthopnea, SOB Vital Signs: Vital Signs Temperature 98.0 F 02/14/18 08:30 Pulse Rate 100 H 02/14/18 10:00 Respiratory Rate 28 H 02/14/18 10:00 Blood Pressure 160/108 02/14/18 10:00 O2 Sat by Pulse Oximetry (%) 98 02/13/18 21:37 Constitutional: Yes: No Distress, Calm, Thin Neck: Yes: Supple Respiratory: Yes: Regular, Diminished, On Nasal O2 Gastrointestinal: Yes: Normal Bowel Sounds, Soft Cardiovascular: Yes: Regular Rate and Rhythm JVD: No Carotid Bruit: No Heart Sounds: Yes: S1, S2 Murmur: Yes: Systolic Murmur, Grade 2 Edema: No - Other Data Labs, Other Data: CBC, BMP 02/14/18 06:03 02/14/18 06:03 Troponin, BNP 02/13/18 02/13/18 02/14/18 19:05 20:12 06:03 Troponin I Cancelled 0.04 0.05 Troponin, BNP 02/13/18 02/13/18 02/14/18 19:05 20:12 06:03 Troponin I Cancelled 0.04 0.05 NSR @ 67 incomplete LBBB Imaging - Results Chest X-ray: Report Reviewed (Congestion, right pleural fluid) Problem List - Problems (1) Acute on chronic diastolic heart failure Code(s): I50.33 - ACUTE ON CHRONIC DIASTOLIC (CONGESTIVE) HEART FAILURE (2) Hypothyroidism Code(s): E03.9 - HYPOTHYROIDISM, UNSPECIFIED Qualifiers: Hypothyroidism type: unspecified Qualified Code(s): E03.9 - Hypothyroidism , unspecified (3) [id number] kidney injury Code(s): N17.9 - ACUTE KIDNEY FAILURE, UNSPECIFIED; N18.9 - CHRONIC KIDNEY DISEASE, UNSPECIFIED Qualifiers: Acute renal failure type: unspecified (4) Diabetes mellitus Code(s): E11.9 - TYPE 2 DIABETES MELLITUS WITHOUT COMPLICATIONS Qualifiers: Diabetes mellitus type: type 2 Diabetes mellitus complication status: with kidney complications Diabetes mellitus complication detail: with chronic kidney disease (5) HLD (hyperlipidemia) Code(s): E78.5 - HYPERLIPIDEMIA, UNSPECIFIED Qualifiers: Hyperlipidemia type: pure hypercholesterolemia Qualified Code(s): E78.00 - Pure hypercholesterolemia, unspecified; E78.0 - Pure hypercholesterolemia (6) HTN (hypertension) Code(s): I10 - ESSENTIAL (PRIMARY) HYPERTENSION Qualifiers: Hypertension type: essential hypertension Qualified Code(s): I10 - Essential (primary) hypertension (7) Aortic stenosis, moderate Code(s): I35.0 - NONRHEUMATIC AORTIC (VALVE) STENOSIS Assessment/Plan Lexiscan MPI: 05/10/2016 Small mild anterior and inferior ischemia, LVEF 65% Echo: 06/25/2015 Echo: conc LVH, with normal LV systolic function mod LOUISE 1.1 cm^2, mild TR, MR, AR 1. Acute on chronic diastolic failure with mod 2. Acute on CKD 3. HTN/HCVD 4. Hyperlipidemia 5. Type 2 DM 6. Hypothyroidism 7. CAD, angina pectoris 8. Hyperuricemia P:1. Ruled out for SD, check BNP, TSH, ABG 2. IV diuresis with monitor diuretic response, renal function and electrolytes 3. Hold Hyzaar pending renal fxn recovery 4. Continue Norvasc 10 qd, ASA 325 qd, Lipitor 40 qhs, Toprol XL 100qd 5. F/u echocardiogram to assess ventricular and valve fxn 6. Thank you for consultative opportunity
[2018-02-14 10:36] LABS: CHOLESTEROL 164 mg/dL (50-200); HDL CHOLESTEROL 47 mg/dL (40-60); TRIGLYCERIDES 216 mg/dL (35-160)
[2018-02-14] MEDS ORDERED: FUROSEMIDE 40 MG/4 ML INJECTABLE VIAL IVPUSH ONE (10:45)
[2018-02-14] MEDS ORDERED: ALPRAZolam 0.25 MG TABLET PO ONE (10:45)
[2018-02-14 11:04] LABS: ARTERIAL BLD GAS O2 SATURATION 96.9 % (90-98.9); ARTERIAL BLOOD GAS BASE EXCESS -5.5 meq/l (-2-2); ARTERIAL BLOOD GAS PO2 94.1 mmHg (68-100)
[2018-02-14 11:12] LABS: ALLENS TEST POSITIVE
--- NOTE | 2018-02-14 12:02 | EKG ---
Test Reason : Blood Pressure : / mmHG Vent. Rate : 067 BPM Atrial Rate : 067 BPM P-R Int : 198 ms QRS Dur : 138 ms QT Int : 502 ms P-R-T Axes : 078 253 059 degrees QTc Int : 530 ms NORMAL SINUS RHYTHM RIGHT SUPERIOR AXIS DEVIATION NON-SPECIFIC INTRA-VENTRICULAR CONDUCTION BLOCK CANNOT RULE OUT ANTEROSEPTAL INFARCT , AGE UNDETERMINED ABNORMAL ECG WHEN COMPARED WITH ECG OF 13-FEB-2018 17:31, NO SIGNIFICANT CHANGE WAS FOUND Confirmed by UMNA VASQUEZ MD ([id number]) on 02/14/2018 12:02:09 PM Referred By: Confirmed By:MUNA VASQUEZ MD
--- NOTE | 2018-02-14 12:05 | EKG ---
Test Reason : Blood Pressure : / mmHG Vent. Rate : 065 BPM Atrial Rate : 065 BPM P-R Int : 194 ms QRS Dur : 140 ms QT Int : 468 ms P-R-T Axes : 078 -59 080 degrees QTc Int : 486 ms NORMAL SINUS RHYTHM LEFT AXIS DEVIATION LEFT BUNDLE BRANCH BLOCK ABNORMAL ECG WHEN COMPARED WITH ECG OF 19-MAR-2014 17:55, LEFT BUNDLE BRANCH BLOCK IS NOW PRESENT CRITERIA FOR SEPTAL INFARCT ARE NO LONGER PRESENT Confirmed by MUNA VASQUEZ MD ([id number]) on 02/14/2018 12:04:24 PM Referred By: WOJCIECH Confirmed By:MUNA VASQUEZ MD
--- NOTE | 2018-02-14 12:41 | PN ---
Progress Note, Physician Chief Complaint: Ms Lua says she feels better today, but is very tired. Complains that she was unable to sleep last night secondary to being in the ER. Currently is chest pain free and denies shortness of breath and nausea/vomiting. - Current Medication List Current Medications: Active Medications Amlodipine Besylate (Norvasc -) 10 mg PO DAILY [facility] Last Admin: 02/14/18 10:29 Dose: 10 mg Atorvastatin Calcium (Lipitor -) 40 mg PO HS [facility] Calcium Carbonate/Cholecalciferol (Os-Pedro 500+D -) 1 tab PO DAILY [facility] Cholecalciferol (Vitamin D3 -) 1,000 unit PO DAILY [facility] Heparin Sodium (Porcine) (Heparin -) 5,000 unit SQ BID [facility] Insulin Aspart (Novolog Vial Sliding Scale -) 1 vial SQ TIDAC [facility]; Protocol Last Admin: 02/14/18 11:23 Dose: Not Given Levothyroxine Sodium (Synthroid -) 25 mcg PO DAILY@0700 [facility] Last Admin: 02/14/18 06:58 Dose: 25 mcg Metoprolol Succinate (Toprol Xl -) 100 mg PO DAILY [facility] Last Admin: 02/14/18 10:28 Dose: 100 mg Multivitamins/Minerals/Vitamin C (Tab-A-Vit -) 1 tab PO DAILY [facility] Ondansetron HCl (Zofran Injection) 8 mg IVPB Q8H PRN PRN Reason: NAUSEA - Objective Vital Signs: Vital Signs Temperature 36.7 C 02/14/18 08:30 Pulse Rate 68 02/14/18 11:15 Respiratory Rate 20 02/14/18 11:15 Blood Pressure 138/72 02/14/18 11:15 O2 Sat by Pulse Oximetry (%) 98 02/13/18 21:37 Constitutional: Yes: No Distress, Calm, Obese Cardiovascular: Yes: Regular Rate and Rhythm. No: Gallop, Murmur, Rub Respiratory: Yes: Regular, CTA Bilaterally, On Nasal O2. No: Rales, Rhonchi, Wheezes Gastrointestinal: Yes: Normal Bowel Sounds, Soft. No: Distention, Tenderness Extremities: Yes: WNL Edema: No Labs: CBC, BMP 02/14/18 06:03 02/14/18 06:03 Problem List - Problems (1) Chest pressure Assessment/Plan: -chest pressure currently resolved -sounds atypical in nature -however needs to be ruled out -case d/w Dr Gutierrez, cardiac enzymes x3 Code(s): R07.89 - OTHER CHEST PAIN (2) Acute on chronic diastolic heart failure Assessment/Plan: -episode of shortness of breath this am -secondary to IVF -stop IVF -given IV lasix with good results -asymptomatic currenlty Code(s): I50.33 - ACUTE ON CHRONIC DIASTOLIC (CONGESTIVE) HEART FAILURE (3) [id number]-tysswqt kidney injury Assessment/Plan: -monitor -nephrology consulted Code(s): N17.9 - ACUTE KIDNEY FAILURE, UNSPECIFIED; N18.9 - CHRONIC KIDNEY DISEASE, UNSPECIFIED Qualifiers: Acute renal failure type: unspecified (4) Aortic stenosis, moderate Assessment/Plan: -no murmur heard during my exam Code(s): I35.0 - NONRHEUMATIC AORTIC (VALVE) STENOSIS (5) Diabetes mellitus Assessment/Plan: -change diet to low sodium diabetic diet -continue SSI -on glipizide as an outpatient Code(s): E11.9 - TYPE 2 DIABETES MELLITUS WITHOUT COMPLICATIONS Qualifiers: Diabetes mellitus type: type 2 Diabetes mellitus complication status: with kidney complications Diabetes mellitus complication detail: with chronic kidney disease (6) HLD (hyperlipidemia) Assessment/Plan: -continue statin Code(s): E78.5 - HYPERLIPIDEMIA, UNSPECIFIED Qualifiers: Hyperlipidemia type: pure hypercholesterolemia Qualified Code(s): E78.00 - Pure hypercholesterolemia, unspecified; E78.0 - Pure hypercholesterolemia (7) HTN (hypertension) Assessment/Plan: -elevated earlier today -most likely secondary to IVF -IVF stopped and given lasix -continue toprol xl and norvasc -monitor Code(s): I10 - ESSENTIAL (PRIMARY) HYPERTENSION Qualifiers: Hypertension type: essential hypertension Qualified Code(s): I10 - Essential (primary) hypertension (8) Hypothyroidism Assessment/Plan: -continue synthroid Code(s): E03.9 - HYPOTHYROIDISM, UNSPECIFIED Qualifiers: Hypothyroidism type: unspecified Qualified Code(s): E03.9 - Hypothyroidism , unspecified
--- NOTE | 2018-02-14 15:19 | CONSULT ---
Consult - text type - Consultation Consultation Note: Renal Consult for CKD This is a 88 year old woman with PMhx of CKD stage 4 (baseline Cr 2.7), DM, Hypertension, HLD, Breast Ca, Depression who presented with chest pain and pressure and admitted for r/o ACS. Pt reports that her chest discomfort is now improved. No fever or chills. + SOB this am after being on IVF overnight, was given IV Lasix with improvement in symptoms. Has good urine output w/o hematuria or dysuria. No N/V/D. On Lasix at home. No confusion or lethargy. No LE swelling. PMhx: as above Allergies: NKDA Family hx: NC Social hx: No T/A/D ROS: as per HPI Home Medications Medication Instructions Recorded Allopurinol [Zyloprim -] 200 mg PO DAILY 03/19/14 Amlodipine Besylate [Norvasc -] 10 mg PO DAILY 03/19/14 Aspirin [ASA -] 325 mg PO DAILY 03/19/14 Atorvastatin Ca [Lipitor] 40 mg PO HS 03/19/14 Cholecalciferol (Vitamin D3) 1,000 unit PO DAILY 03/19/14 [Vitamin D3] Enalapril Maleate [Vasotec -] 20 mg PO BID 03/19/14 Furosemide [Lasix -] 20 mg PO DAILY 03/19/14 Glipizide Xl [Glucotrol Xl -] 2.5 mg PO DAILY 03/19/14 Losartan/Hydrochlorothiazide 1 each PO DAILY 03/19/14 [Losartan-Hctz 100-12.5 mg Tab] Metoprolol Succinate [Toprol XL -] 100 mg PO DAILY 03/19/14 Multivitamins [Multivit ([facility] 1 tab PO DAILY 03/19/14 Formulary)] Guar Gum [Benefiber] 1 each PO BID #0 packet 05/21/14 Calcium Carbonate/Vitamin D3 1 each PO DAILY 02/13/18 [Calcium 500 + Vit D 200 Caplet] Levothyroxine [Synthroid -] 25 mcg PO DAILY 02/13/18 Vital Signs Temperature 97.5 F L 02/14/18 14:11 Pulse Rate 60 02/14/18 14:11 Respiratory Rate 24 02/14/18 14:11 Blood Pressure 123/92 02/14/18 14:11 O2 Sat by Pulse Oximetry (%) 97 02/14/18 11:30 Intake & Output 02/11/18 02/12/18 02/13/18 02/14/18 23:59 23:59 23:59 23:59 Weight 81.647 kg 79.379 kg NAD on NC O2 MMM, NO JVD Neck supple RRR, no M/R CTA soft NT/ND trace edema in LE, no clubbing or cyanosis CBC, BMP 02/14/18 06:03 02/14/18 06:03 Current Medications Amlodipine Besylate (Norvasc -) 10 mg PO DAILY [facility] Last Admin: 02/14/18 10:29 Dose: 10 mg Atorvastatin Calcium (Lipitor -) 40 mg PO HS [facility] Calcium Carbonate/Cholecalciferol (Os-Pedro 500+D -) 1 tab PO DAILY [facility] Cholecalciferol (Vitamin D3 -) 1,000 unit PO DAILY [facility] Heparin Sodium (Porcine) (Heparin -) 5,000 unit SQ BID [facility] Insulin Aspart (Novolog Vial Sliding Scale -) 1 vial SQ TIDAC [facility]; Protocol Last Admin: 02/14/18 11:23 Dose: Not Given Levothyroxine Sodium (Synthroid -) 25 mcg PO DAILY@0700 [facility] Last Admin: 02/14/18 06:58 Dose: 25 mcg Metoprolol Succinate (Toprol Xl -) 100 mg PO DAILY [facility] Last Admin: 02/14/18 10:28 Dose: 100 mg Multivitamins/Minerals/Vitamin C (Tab-A-Vit -) 1 tab PO DAILY [facility] Ondansetron HCl (Zofran Injection) 8 mg IVPB Q8H PRN PRN Reason: NAUSEA 88 year old woman with PMhx of CKD stage 4 (baseline Cr 2.7), DM, Hypertension, HLD, Breast Ca, Depression who presented with chest pain and pressure and admitted for r/o ACS. #CKD stage 4 with proteinuria secondary to diabetic nephropathy #Chest pain r/o ACS #CHF #Hypertension #Anemia Renal function at baseline at this time no acute indication for [employer] would not start EDGAR/ARB given low eGFR Continue Lasix as needed to maintain evolemia D/c IVF Trend renal function and electrolytes Check iron studies continue metoprolol and norvasc Thank you Will follow Miguel Ramirez DO
[2018-02-14] MEDS: MULTIVITAMINS (DAILY MVI) TABLET (FP) PO SCH (18:03)
[2018-02-14] MEDS: CALCIUM 500MG/VIT-D 200 UNITS COMBO TABLET (FP) PO SCH (18:03)
[2018-02-14] MEDS: CHOLECALCIFEROL (VITAMIN D3) 1,000 UNIT TABLET (FP) PO SCH (18:03)
[2018-02-14] MEDS: ATORVASTATIN CA 40 MG TABLET (FP) PO SCH (22:08)
[2018-02-14] MEDS: HEPARIN NA (PORCINE) 5,000 UNITS/ML 1ML VIAL SQ SCH (22:56)
[2018-02-15] MEDS: INSULIN SLIDING SCALE (NOVOLOG) 1 VIAL SQ SCH ×3 (06:22→16:44)
[2018-02-15] MEDS: LEVOTHYROXINE NA 25 MCG TABLET (FP) PO SCH (06:22)
[2018-02-15 08:12] LABS: ANION GAP 11 (8-16); BLOOD UREA NITROGEN 58 mg/dL (7-18); CALCIUM 8.7 mg/dL (8.5-10.1); CHLORIDE 113 mmol/L (98-107); CO2 26 mmol/L (21-32); CREATININE 3.1 mg/dL (0.55-1.02); GLUCOSE,RANDOM 83 mg/dL (74-106); PHOSPHOROUS 5.1 mg/dL (2.5-4.9); POTASSIUM 4.1 mmol/L (3.5-5.1); SODIUM 150 mmol/L (136-145)
[2018-02-15 08:20] LABS: N-TERMINAL BNP 25263.92 pg/ml (5-450)
[2018-02-15 08:30] LABS: BASO % 1.2 % (0-2.0); HEMATOCRIT 30.7 % (32.4-45.2); HEMOGLOBIN 10.2 GM/dL (10.7-15.3); LYMPH % 21.5 % (8-40); MCH 32.6 pg (25.7-33.7); MCHC 33.1 g/dl (32.0-36.0); MEAN CELL VOLUME 98.5 fl (80-96); MEAN PLT VOLUME 10.5 fl (7.5-11.1); MONO % 7.8 % (3.8-10.2); NEUT % 66.5 % (42.8-82.8); PLATELET COUNT 158 K/MM3 (134-434); RBC 3.11 M/mm3 (3.60-5.2); RDW 13.9 % (11.6-15.6); WHITE BLOOD COUNT 7.8 K/mm3 (4.0-10.0)
--- NOTE | 2018-02-15 09:22 | PN ---
Progress Note (short form) - Note Progress Note: Dr. Sweet to document today. Severe epistaxis last night. Recurrence ofpost prandial nausea; very troubling to her.
[2018-02-15] MEDS: MULTIVITAMINS (DAILY MVI) TABLET (FP) PO SCH (10:46)
[2018-02-15] MEDS: CALCIUM 500MG/VIT-D 200 UNITS COMBO TABLET (FP) PO SCH (10:46)
[2018-02-15] MEDS: amLODIPine BESYLATE 10 MG TABLET (FP) PO SCH (10:46)
[2018-02-15] MEDS: CHOLECALCIFEROL (VITAMIN D3) 1,000 UNIT TABLET (FP) PO SCH (10:46)
--- NOTE | 2018-02-15 11:42 | PN ---
Progress Note, Physician History of Present Illness: No further chest pain, dyspnea and orthopnea. Lying comfortably in bed. - Current Medication List Current Medications: Active Medications Amlodipine Besylate (Norvasc -) 10 mg PO DAILY [facility] Last Admin: 02/15/18 10:46 Dose: 10 mg Atorvastatin Calcium (Lipitor -) 40 mg PO HS [facility] Last Admin: 02/14/18 22:08 Dose: 40 mg Calcium Carbonate/Cholecalciferol (Os-Pedro 500+D -) 1 tab PO DAILY [facility] Last Admin: 02/15/18 10:46 Dose: 1 tab Cholecalciferol (Vitamin D3 -) 1,000 unit PO DAILY [facility] Last Admin: 02/15/18 10:46 Dose: 1,000 unit Heparin Sodium (Porcine) (Heparin -) 5,000 unit SQ BID [facility] Last Admin: 02/14/18 22:56 Dose: Not Given Insulin Aspart (Novolog Vial Sliding Scale -) 1 vial SQ TIDAC [facility]; Protocol Last Admin: 02/15/18 06:22 Dose: Not Given Levothyroxine Sodium (Synthroid -) 25 mcg PO DAILY@0700 [facility] Last Admin: 02/15/18 06:22 Dose: 25 mcg Metoprolol Succinate (Toprol Xl -) 100 mg PO DAILY [facility] Last Admin: 02/15/18 10:46 Dose: 100 mg Multivitamins/Minerals/Vitamin C (Tab-A-Vit -) 1 tab PO DAILY [facility] Last Admin: 02/15/18 10:46 Dose: 1 tab Ondansetron HCl (Zofran Injection) 8 mg IVPB Q8H PRN PRN Reason: NAUSEA Last Admin: 02/14/18 23:00 Dose: 8 mg - Objective Vital Signs: Vital Signs Temperature 97.7 F 02/15/18 06:00 Pulse Rate 54 L 02/15/18 06:00 Respiratory Rate 20 02/15/18 06:00 Blood Pressure 126/83 02/15/18 06:00 O2 Sat by Pulse Oximetry (%) 97 02/15/18 05:40 Constitutional: Yes: No Distress, Calm Neck: Yes: Supple Cardiovascular: Yes: Regular Rate and Rhythm, Murmur (2/6 SM) Respiratory: Yes: Regular, Diminished, On Nasal O2 Gastrointestinal: Yes: Normal Bowel Sounds, Soft, Abdomen, Obese Edema: No Labs: CBC, BMP 02/15/18 06:50 02/15/18 06:50 Problem List - Problems (1) Acute on chronic diastolic heart failure Code(s): I50.33 - ACUTE ON CHRONIC DIASTOLIC (CONGESTIVE) HEART FAILURE (2) Hypothyroidism Code(s): E03.9 - HYPOTHYROIDISM, UNSPECIFIED Qualifiers: Hypothyroidism type: unspecified Qualified Code(s): E03.9 - Hypothyroidism , unspecified (3) Smrel-nf-nwdudje kidney injury Code(s): N17.9 - ACUTE KIDNEY FAILURE, UNSPECIFIED; N18.9 - CHRONIC KIDNEY DISEASE, UNSPECIFIED Qualifiers: Acute renal failure type: unspecified (4) Diabetes mellitus Code(s): E11.9 - TYPE 2 DIABETES MELLITUS WITHOUT COMPLICATIONS Qualifiers: Diabetes mellitus type: type 2 Diabetes mellitus complication status: with kidney complications Diabetes mellitus complication detail: with chronic kidney disease (5) HLD (hyperlipidemia) Code(s): E78.5 - HYPERLIPIDEMIA, UNSPECIFIED Qualifiers: Hyperlipidemia type: pure hypercholesterolemia Qualified Code(s): E78.00 - Pure hypercholesterolemia, unspecified; E78.0 - Pure hypercholesterolemia (6) HTN (hypertension) Code(s): I10 - ESSENTIAL (PRIMARY) HYPERTENSION Qualifiers: Hypertension type: essential hypertension Qualified Code(s): I10 - Essential (primary) hypertension (7) Aortic stenosis, moderate Code(s): I35.0 - NONRHEUMATIC AORTIC (VALVE) STENOSIS Assessment/Plan Lexiscan MPI: 05/10/2016 Small mild anterior and inferior ischemia, LVEF 65% Echo: 06/25/2015 Echo: conc LVH, with normal LV systolic function mod LOUISE 1.1 cm^2, mild TR, MR, AR 1. Acute on chronic diastolic failure with mod improved 2. 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 HTN/HCVD 4. Hyperlipidemia 5. Type 2 DM 6. Hypothyroidism 7. CAD, angina pectoris 8. Hyperuricemia 9. Hypernatremia P: 1. Observe off diuretics and free water replete with monitor renal recovery and electrolytes 2. Hold Hyzaar pending given low eGFR 3. Continue Norvasc 10 qd, resume ASA 81 qd, Lipitor 40 qhs, Toprol XL 100qd 4. F/u echocardiogram to assess ventricular and valve fxn 5. DVT prophylaxis
--- NOTE | 2018-02-15 12:14 | PN ---
Progress Note, Physician Chief Complaint: Ms Lua says she is feeling better today. Denies cp, sob, n/v but says she does not feel like eating. - Current Medication List Current Medications: Active Medications Amlodipine Besylate (Norvasc -) 10 mg PO DAILY [facility] Last Admin: 02/15/18 10:46 Dose: 10 mg Aspirin (Asa -) 81 mg PO DAILY [facility] Atorvastatin Calcium (Lipitor -) 40 mg PO HS [facility] Last Admin: 02/14/18 22:08 Dose: 40 mg Calcium Carbonate/Cholecalciferol (Os-Pedro 500+D -) 1 tab PO DAILY [facility] Last Admin: 02/15/18 10:46 Dose: 1 tab Cholecalciferol (Vitamin D3 -) 1,000 unit PO DAILY [facility] Last Admin: 02/15/18 10:46 Dose: 1,000 unit Heparin Sodium (Porcine) (Heparin -) 5,000 unit SQ BID [facility] Last Admin: 02/14/18 22:56 Dose: Not Given Insulin Aspart (Novolog Vial Sliding Scale -) 1 vial SQ TIDAC [facility]; Protocol Last Admin: 02/15/18 06:22 Dose: Not Given Levothyroxine Sodium (Synthroid -) 25 mcg PO DAILY@0700 [facility] Last Admin: 02/15/18 06:22 Dose: 25 mcg Metoprolol Succinate (Toprol Xl -) 100 mg PO DAILY [facility] Last Admin: 02/15/18 10:46 Dose: 100 mg Multivitamins/Minerals/Vitamin C (Tab-A-Vit -) 1 tab PO DAILY [facility] Last Admin: 02/15/18 10:46 Dose: 1 tab Ondansetron HCl (Zofran Injection) 8 mg IVPB Q8H PRN PRN Reason: NAUSEA Last Admin: 02/14/18 23:00 Dose: 8 mg - Objective Vital Signs: Vital Signs Temperature 36.5 C 02/15/18 06:00 Pulse Rate 54 L 02/15/18 06:00 Respiratory Rate 20 02/15/18 06:00 Blood Pressure 126/83 02/15/18 06:00 O2 Sat by Pulse Oximetry (%) 97 02/15/18 05:40 Constitutional: Yes: No Distress, Calm, Obese Cardiovascular: Yes: Regular Rate and Rhythm. No: Gallop, Murmur, Rub Respiratory: Yes: Regular, CTA Bilaterally, On Nasal O2. No: Rales, Rhonchi, Wheezes Gastrointestinal: Yes: Normal Bowel Sounds, Soft. No: Distention, Tenderness Extremities: Yes: WNL Edema: No Labs: CBC, BMP 02/15/18 06:50 02/15/18 06:50 Problem List - Problems (1) Chest pressure Code(s): R07.89 - OTHER CHEST PAIN (2) Acute on chronic diastolic heart failure Code(s): I50.33 - ACUTE ON CHRONIC DIASTOLIC (CONGESTIVE) HEART FAILURE (3) Qaihh-uh-iokflsg kidney injury Code(s): N17.9 - ACUTE KIDNEY FAILURE, UNSPECIFIED; N18.9 - CHRONIC KIDNEY DISEASE, UNSPECIFIED Qualifiers: Acute renal failure type: unspecified (4) Aortic stenosis, moderate Code(s): I35.0 - NONRHEUMATIC AORTIC (VALVE) STENOSIS (5) Diabetes mellitus Code(s): E11.9 - TYPE 2 DIABETES MELLITUS WITHOUT COMPLICATIONS Qualifiers: Diabetes mellitus type: type 2 Diabetes mellitus complication status: with kidney complications Diabetes mellitus complication detail: with chronic kidney disease (6) HLD (hyperlipidemia) Code(s): E78.5 - HYPERLIPIDEMIA, UNSPECIFIED Qualifiers: Hyperlipidemia type: pure hypercholesterolemia Qualified Code(s): E78.00 - Pure hypercholesterolemia, unspecified; E78.0 - Pure hypercholesterolemia (7) HTN (hypertension) Code(s): I10 - ESSENTIAL (PRIMARY) HYPERTENSION Qualifiers: Hypertension type: essential hypertension Qualified Code(s): I10 - Essential (primary) hypertension (8) Hypothyroidism Code(s): E03.9 - HYPOTHYROIDISM, UNSPECIFIED Qualifiers: Hypothyroidism type: unspecified Qualified Code(s): E03.9 - Hypothyroidism , unspecified Assessment/Plan (1) Chest pressure Assessment/Plan: -not cardiac in nature -resolved Code(s): R07.89 - OTHER CHEST PAIN (2) Acute on chronic diastolic heart failure Assessment/Plan: -cardiology following -monitoring off of diuretics -follow up echo Code(s): I50.33 - ACUTE ON CHRONIC DIASTOLIC (CONGESTIVE) HEART FAILURE (3) Axmtq-qx-sglgrph kidney injury Assessment/Plan -appreciate nephrology assistance -creatinine increased today -also with hypernatremia -agree with increase in free water Code(s): N17.9 - ACUTE KIDNEY FAILURE, UNSPECIFIED; N18.9 - CHRONIC KIDNEY DISEASE, UNSPECIFIED Qualifiers: Acute renal failure type: unspecified (4) Aortic stenosis, moderate Assessment/Plan: -no murmur heard during my exam Code(s): I35.0 - NONRHEUMATIC AORTIC (VALVE) STENOSIS (5) Diabetes mellitus Assessment/Plan: -low sodium diabetic diet -continue SSI -on glipizide as an outpatient Code(s): E11.9 - TYPE 2 DIABETES MELLITUS WITHOUT COMPLICATIONS Qualifiers: Diabetes mellitus type: type 2 Diabetes mellitus complication status: with kidney complications Diabetes mellitus complication detail: with chronic kidney disease (6) HLD (hyperlipidemia) Assessment/Plan: -continue statin Code(s): E78.5 - HYPERLIPIDEMIA, UNSPECIFIED Qualifiers: Hyperlipidemia type: pure hypercholesterolemia Qualified Code(s): E78.00 - Pure hypercholesterolemia, unspecified; E78.0 - Pure hypercholesterolemia (7) HTN (hypertension) Assessment/Plan: -controlled -continue toprol xl and norvasc -monitor Code(s): I10 - ESSENTIAL (PRIMARY) HYPERTENSION Qualifiers: Hypertension type: essential hypertension Qualified Code(s): I10 - Essential (primary) hypertension (8) Hypothyroidism Assessment/Plan: -continue synthroid Code(s): E03.9 - HYPOTHYROIDISM, UNSPECIFIED Qualifiers: Hypothyroidism type: unspecified Qualified Code(s): E03.9 - Hypothyroidism , unspecified
--- NOTE | 2018-02-15 13:55 | PN ---
Progress Note (short form) - Note Progress Note: Renal follow up for CKD pt seen and examined at the bedside no acute complaints denies any sob, chest pain, abd pain, N/V/D making urine Vital Signs Temperature 97.7 F 02/15/18 06:00 Pulse Rate 54 L 02/15/18 06:00 Respiratory Rate 20 02/15/18 06:00 Blood Pressure 126/83 02/15/18 06:00 O2 Sat by Pulse Oximetry (%) 97 02/15/18 05:40 Intake & Output 02/12/18 02/13/18 02/14/18 02/15/18 23:59 23:59 23:59 23:59 Intake Total 450 200 Output Total 1000 Balance -550 200 Weight 81.647 kg 79.379 kg NAD RRR CTA soft NT/ND No LE edema CBC, BMP 02/15/18 06:50 02/15/18 06:50 Current Medications Amlodipine Besylate (Norvasc -) 10 mg PO DAILY [facility] Last Admin: 02/15/18 10:46 Dose: 10 mg Aspirin (Asa -) 81 mg PO DAILY [facility] Atorvastatin Calcium (Lipitor -) 40 mg PO HS [facility] Last Admin: 02/14/18 22:08 Dose: 40 mg Calcium Carbonate/Cholecalciferol (Os-Pedro 500+D -) 1 tab PO DAILY [facility] Last Admin: 02/15/18 10:46 Dose: 1 tab Cholecalciferol (Vitamin D3 -) 1,000 unit PO DAILY [facility] Last Admin: 02/15/18 10:46 Dose: 1,000 unit Heparin Sodium (Porcine) (Heparin -) 5,000 unit SQ BID [facility] Last Admin: 02/14/18 22:56 Dose: Not Given Insulin Aspart (Novolog Vial Sliding Scale -) 1 vial SQ TIDAC [facility]; Protocol Last Admin: 02/15/18 11:30 Dose: Not Given Levothyroxine Sodium (Synthroid -) 25 mcg PO DAILY@0700 [facility] Last Admin: 02/15/18 06:22 Dose: 25 mcg Metoprolol Succinate (Toprol Xl -) 100 mg PO DAILY [facility] Last Admin: 02/15/18 10:46 Dose: 100 mg Multivitamins/Minerals/Vitamin C (Tab-A-Vit -) 1 tab PO DAILY [facility] Last Admin: 02/15/18 10:46 Dose: 1 tab Ondansetron HCl (Zofran Injection) 8 mg IVPB Q8H PRN PRN Reason: NAUSEA Last Admin: 02/14/18 23:00 Dose: 8 mg 88 year old woman with PMhx of CKD stage 4 (baseline Cr 2.7), DM, Hypertension, HLD, Breast Ca, Depression who presented with chest pain and pressure and admitted for r/o ACS. 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
--- NOTE | 2018-02-15 16:17 | ECHO ---
Name: LOSAPIO, LUCA Exam:Adult Echocardiogram Study Date: 02/15/2018 02:58 PM Reason For Study: cp MMode/2D Measurements & Calculations IVSd: 0.82 cm LA dimension: 3.7 cm LVIDd: 5.6 cm ACS: 1.4 cm LVIDs: 4.6 cm LVPWd: 0.89 cm EDV(Teich): 151.7 ml LAV (MOD-bp): 89.9 ml ESV(Teich): 97.7 ml TAPSE: 1.9 cm RV S Paulette: 9.4 cm/sec Doppler Measurements & Calculations MV E max paulette: 88.3 cm/sec Ao V2 max: 194.9 cm/sec MV A max paulette: 74.7 cm/sec Ao max P.2 mmHg MV E/A: 1.2 AI P1/2t: 410.5 msec AI max paulette: 332.5 cm/sec LV V1 max P.5 mmHg AI max P.2 mmHg LV V1 max: 61.7 cm/sec AI dec slope: 237.2 cm/sec2 MR max paulette: 468.9 cm/sec TV V2 max: 288.4 cm/sec MR max P.9 mmHg TV max P.3 mmHg TR max paulette: 251.0 cm/sec Med Peak E' Paulette: 2.9 cm/sec TR max P.2 mmHg Med E/e': 30.1 Lat Peak E' Paulette: 3.7 cm/sec Lat E/e': 23.9 Procedure The study was technically difficult with many images being suboptimal in quality. Left Ventricle Left ventricular systolic function is moderately reduced. Regional wall motion abnormalities cannot b e excluded due to limited visualization. Right Ventricle Possible pacemaker lead in RV. Atria The left atrium is mildly dilated. Mitral Valve There is mild mitral valve thickening. There is moderate mitral annular calcification. Calcified mitr al apparatus. No significant mitral valve stenosis. There is mild to moderate mitral regurgitation. Tricuspid Valve The tricuspid valve is normal in structure and function. There is moderate tricuspid regurgitation. R ight ventricular systolic pressure is elevated at 30-40mmHg. Aortic Valve There is moderate aortic sclerosis.;. No hemodynamically significant valvular aortic stenosis. Mild t o moderate aortic regurgitation. Pulmonic Valve The pulmonic valve is not well seen, but is grossly normal. There is no pulmonic valvular stenosis. T here is no pulmonic valvular regurgitation. Great Vessels The aortic root is normal size. Pericardium/Pleura Small pericardial effusion (<1cm). There are no echocardiographic indications of cardiac tamponade. Interpretation Summary Left ventricular systolic function is moderately reduced. Regional wall motion abnormalities cannot be excluded due to limited visualization. The study was technically difficult with many images being suboptimal in quality. The left atrium is mildly dilated. There is mild mitral valve thickening. There is moderate mitral annular calcification. Calcified mitral apparatus. There is mild to moderate mitral regurgitation. There is moderate tricuspid regurgitation. Right ventricular systolic pressure is elevated at 30-40mmHg. There is moderate aortic sclerosis.; Mild to moderate aortic regurgitation. Small pericardial effusion (<1cm) There are no echocardiographic indications of cardiac tamponade. MD Gene Nicole 02/15/2018 04:17 PM
--- NOTE | 2018-02-15 16:47 | CON.GI ---
Consult Consult Specialty:: Gastroenterology Reason for Consultation:: postprandial nausea - History of Present Illness Chief Complaint: "im feeling ok" History of Present Illness: patient is an 88 y/o female who presented to [facility] ER on 02/13 with complaints of 4 days ongoing chest pain/pressure,cough,headache and horseness. Her ER course was notable for a BUN of 55 Cr: 2.8, and she had troponin of 0.04. Chest Xray showed cardiomegaly and atelectasis at the right lower lung base. Yesterday she endorses some postprandial nausea. She said that after the few times she ate yesterday she started to feel very nauseous but had no episodes of vomiting and no associated diarrhea. However, today, she has been able to eat without any complaints of nausea. But has not had a bowel movement in 2 days. She recalls having a colonoscopy a few years ago but has never had an EGD. She is not aware of any GI malignancies in the family. - History Source History Provided By: Patient - Past Medical History Cardio/Vascular: Yes: CAD (s/p stents around 20 years ago ), CHF, HTN, Hyperlipdemia Renal/: Yes: Other (1 working kidney due to ? renal atrophy ) ...: No Heme/Onc: Yes: Cancer (R breast cacer- s/p partial masectomy a year ago ) Endocrine: Yes: Diabetes Mellitus - Past Surgical History Past Surgical History: Yes: Mastectomy (partial R sided ) - Alcohol/Substance Use Hx Alcohol Use: No History of Substance Use: reports: None - Smoking History Smoking history: Never smoked Have you smoked in the past 12 months: No Aproximately how many cigarettes per day: 0 - Social History Usual Living Arrangement: Alone ADL: Independent Place of : [facility] <Anju Bhatti - Last Filed: 02/15/18 17:11> Consult Specialty:: Gastroenterology: For Dr. Vargas <Hung Giron - Last Filed: 02/15/18 18:26> Home Medications <Anju Bhatti - Last Filed: 02/15/18 17:11> <Hung Giron - Last Filed: 02/15/18 18:26> - Allergies Allergies/Adverse Reactions: Allergies Allergy/AdvReac Type Severity Reaction Status Date / Time metronidazole [From Flagyl] Allergy Severe Swelling Verified 07/11/18 17:02 - Home Medications Home Medications: Ambulatory Orders Allopurinol [Zyloprim -] 200 mg PO DAILY 03/19/14 Amlodipine Besylate [Norvasc -] 10 mg PO DAILY 03/19/14 Aspirin [ASA -] 325 mg PO DAILY 03/19/14 Atorvastatin Ca [Lipitor] 40 mg PO HS 03/19/14 Cholecalciferol (Vitamin D3) [Vitamin D3] 1,000 unit PO DAILY 03/19/14 Enalapril Maleate [Vasotec -] 20 mg PO BID 03/19/14 Furosemide [Lasix -] 20 mg PO DAILY 03/19/14 Glipizide Xl [Glucotrol Xl -] 2.5 mg PO DAILY 03/19/14 Losartan/Hydrochlorothiazide [Losartan-Hctz 100-12.5 mg Tab] 1 each PO DAILY Metoprolol Succinate [Toprol XL -] 100 mg PO DAILY 03/19/14 Multivitamins [Multivit ([facility] Formulary)] 1 tab PO DAILY 03/19/14 Guar Gum [Benefiber] 1 each PO BID #0 packet 05/21/14 Calcium Carbonate/Vitamin D3 [Calcium 500 + Vit D 200 Caplet] 1 each PO DAILY Levothyroxine [Synthroid -] 25 mcg PO DAILY 02/13/18 Family Disease History - Family Disease History Other Family History: no known family histroy of any GI malignancies- all of her family lives in [place] and does not know <Anju Bhatti - Last Filed: 02/15/18 17:11> Review of Systems - Review of Systems Cardiovascular: denies: Chest Pain, Palpitations Respiratory: denies: SOB Gastrointestinal: denies: Abdominal Pain, Nausea, Rectal Bleeding Musculoskeletal: reports: Joint Pain (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) <Anju Bhatti - Last Filed: 02/15/18 17:11> Physical Exam-GI Vital Signs: Vital Signs Temperature 98.3 F 02/15/18 14:27 Pulse Rate 62 02/15/18 14:27 Respiratory Rate 22 02/15/18 14:27 Blood Pressure 131/65 02/15/18 14:27 O2 Sat by Pulse Oximetry (%) 97 02/15/18 14:00 Constitutional: Yes: No Distress Eyes: No: Sclera Icterus Cardiovascular: Yes: Regular Rate and Rhythm, Murmur (2/6 systolic murmur) Respiratory: Yes: Diminished (diminished breath sounds at right lung base) Gastrointestinal Inspection: No: Distention ...Auscultate: Yes: Normoactive Bowel Sounds ...Palpate: Yes: Soft, Other (increase abdominal girth). No: Tenderness Edema: Yes Edema: LLE: Trace, RLE: Trace Neurological: Yes: Alert Labs: CBC, BMP 02/15/18 06:50 02/15/18 06:50 <Anju Bhatti - Last Filed: 02/15/18 17:11> Vital Signs: Vital Signs Temperature 98.3 F 02/15/18 14:27 Pulse Rate 62 02/15/18 14:27 Respiratory Rate 22 02/15/18 14:27 Blood Pressure 131/65 02/15/18 14:27 O2 Sat by Pulse Oximetry (%) 97 02/15/18 14:00 Cardiovascular: Yes: Murmur Labs: CBC, BMP 02/15/18 06:50 02/15/18 06:50 <Hung Giron - Last Filed: 02/15/18 18:26> Problem List - Problems (1) Nausea Assessment/Plan: patient has not experienced anymore nausea since yesterday and is tolerating food today. -can give zofran 8mg q8 PRN for nausea Code(s): R11.0 - NAUSEA <Anju Bhatti - Last Filed: 02/15/18 17:11> - Problems (1) Nausea Assessment/Plan: ATTENDING PHYSICIAN STATEMENT I saw and evaluated the patient. I reviewed the resident's note and discussed the case with the resident. I agree with the resident's findings and plan as documented. SUBJECTIVE: 88F admitted for chest pain. being evaluated by cardiology Called to evaluate nausea Patient describes nausea for about a month with appetite at times Able to eat three meals today without nausea Last colonoscopy 2013 w/ Dr. Turcios = diverticulosis and states having a negative stool cologard OBJECTIVE: ANicetric Hrt RRR, 2/6 holosystolic murmur at the RSB Lungs: CTA b/l Abd: large pannus limiting exam somewhat. + normaoactive BS. Non tender. No HSM. Ext: no LE edema Labs: Macorcytic anemia Normal LFTs ASSESSMENT: Persistent nausea: seems improved today PLAN: If nausea persists, discussed conitnued work-up including UGIS and possible EGD Check B12 / folate in setting of macrocytosis: deficiencies could contribute to nausea Add GI prophylaxis while on ASA therapy Code(s): R11.0 - NAUSEA <Hung Giron - Last Filed: 02/15/18 18:26>
[2018-02-15] MEDS: HEPARIN NA (PORCINE) 5,000 UNITS/ML 1ML VIAL SQ SCH (21:28)
[2018-02-15] MEDS: ATORVASTATIN CA 40 MG TABLET (FP) PO SCH (21:42)
[2018-02-16] MEDS: LEVOTHYROXINE NA 25 MCG TABLET (FP) PO SCH (06:17)
[2018-02-16] MEDS: INSULIN SLIDING SCALE (NOVOLOG) 1 VIAL SQ SCH ×3 (06:17→16:53)
[2018-02-16 06:25] LABS: SERUM IRON SATURATION 28 % (15-55); TOTAL IRON BINDING CAPACITY 241 ug/dL (250-450); UIBC 174 ug/dL (118-369)
[2018-02-16 07:58] LABS: BASO % 1.1 % (0-2.0); EOS % 4.6 % (0-4.5); HEMATOCRIT 32.1 % (32.4-45.2); HEMOGLOBIN 10.7 GM/dL (10.7-15.3); LYMPH % 22.4 % (8-40); MCH 32.6 pg (25.7-33.7); MCHC 33.4 g/dl (32.0-36.0); MEAN CELL VOLUME 97.4 fl (80-96); MEAN PLT VOLUME 10.4 fl (7.5-11.1); MONO % 8.9 % (3.8-10.2); PLATELET COUNT 152 K/MM3 (134-434); RBC 3.29 M/mm3 (3.60-5.2); RDW 13.7 % (11.6-15.6)
[2018-02-16 08:14] LABS: ANION GAP 9 (8-16); BLOOD UREA NITROGEN 57 mg/dL (7-18); CALCIUM 8.5 mg/dL (8.5-10.1); CHLORIDE 111 mmol/L (98-107); CO2 26 mmol/L (21-32); CREATININE 3.1 mg/dL (0.55-1.02); GLUCOSE,RANDOM 90 mg/dL (74-106); PHOSPHOROUS 4.6 mg/dL (2.5-4.9); POTASSIUM 4.1 mmol/L (3.5-5.1); SODIUM 146 mmol/L (136-145)
--- NOTE | 2018-02-16 10:20 | PN ---
Progress Note (short form) - Note Progress Note: Renal follow up for CKD pt seen and examined at the bedside no acute complaints denies any sob, chest pain, abd pain, N/V making urine off Lasix Vital Signs Temperature 97.5 F L 02/16/18 06:00 Pulse Rate 55 L 02/16/18 06:00 Respiratory Rate 20 02/16/18 06:00 Blood Pressure 117/58 02/16/18 06:00 O2 Sat by Pulse Oximetry (%) 94 L 02/15/18 22:00 Intake & Output 02/13/18 02/14/18 02/15/18 02/16/18 23:59 23:59 23:59 23:59 Intake Total 450 1015 200 Output Total 1000 Balance -550 1015 200 Weight 81.647 kg 79.379 kg 79.379 kg NAD RRR CTA soft NT/ND No LE edema CBC, BMP 02/15/18 06:50 02/15/18 06:50 Current Medications Amlodipine Besylate (Norvasc -) 10 mg PO DAILY [facility] Last Admin: 02/15/18 10:46 Dose: 10 mg Aspirin (Asa -) 81 mg PO DAILY [facility] Atorvastatin Calcium (Lipitor -) 40 mg PO HS [facility] Last Admin: 02/14/18 22:08 Dose: 40 mg Calcium Carbonate/Cholecalciferol (Os-Pedro 500+D -) 1 tab PO DAILY [facility] Last Admin: 02/15/18 10:46 Dose: 1 tab Cholecalciferol (Vitamin D3 -) 1,000 unit PO DAILY [facility] Last Admin: 02/15/18 10:46 Dose: 1,000 unit Heparin Sodium (Porcine) (Heparin -) 5,000 unit SQ BID [facility] Last Admin: 02/14/18 22:56 Dose: Not Given Insulin Aspart (Novolog Vial Sliding Scale -) 1 vial SQ TIDAC [facility]; Protocol Last Admin: 02/15/18 11:30 Dose: Not Given Levothyroxine Sodium (Synthroid -) 25 mcg PO DAILY@0700 [facility] Last Admin: 02/15/18 06:22 Dose: 25 mcg Metoprolol Succinate (Toprol Xl -) 100 mg PO DAILY [facility] Last Admin: 02/15/18 10:46 Dose: 100 mg Multivitamins/Minerals/Vitamin C (Tab-A-Vit -) 1 tab PO DAILY [facility] Last Admin: 02/15/18 10:46 Dose: 1 tab Ondansetron HCl (Zofran Injection) 8 mg IVPB Q8H PRN PRN Reason: NAUSEA Last Admin: 02/14/18 23:00 Dose: 8 mg 88 year old woman with PMhx of CKD stage 4 (baseline Cr 2.7), DM, Hypertension, HLD, Breast Ca, Depression who presented with chest pain and pressure and admitted for r/o ACS. 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
[2018-02-16] MEDS: MULTIVITAMINS (DAILY MVI) TABLET (FP) PO SCH (10:45)
[2018-02-16] MEDS: CALCIUM 500MG/VIT-D 200 UNITS COMBO TABLET (FP) PO SCH (10:45)
[2018-02-16] MEDS: RANITIDINE HCL 150 MG TABLET (FP) PO SCH (10:45)
[2018-02-16] MEDS: HEPARIN NA (PORCINE) 5,000 UNITS/ML 1ML VIAL SQ SCH ×2 (10:45→22:38)
[2018-02-16] MEDS: CHOLECALCIFEROL (VITAMIN D3) 1,000 UNIT TABLET (FP) PO SCH (10:45)
[2018-02-16] MEDS: ASPIRIN 81 MG CHEWABLE TABLETS PO SCH (10:45)
[2018-02-16] MEDS: amLODIPine BESYLATE 10 MG TABLET (FP) PO SCH (10:45)
--- NOTE | 2018-02-16 11:33 | PN ---
GI Progress Note Subjective: GI NOte: Nausea has resolved. Tolerating diet. Had BM overnight. Has no GI complaints. - Objective Vital Signs: Vital Signs Temperature 97.5 F L 02/16/18 06:00 Pulse Rate 68 02/16/18 10:00 Respiratory Rate 18 02/16/18 10:00 Blood Pressure 134/52 02/16/18 10:00 O2 Sat by Pulse Oximetry (%) 96 02/16/18 09:00 CBC,CMP WBC 8.0 K/mm3 (4.0-10.0) 02/16/18 06:00 RBC 3.29 M/mm3 (3.60-5.2) L 02/16/18 06:00 Hgb 10.7 GM/dL (10.7-15.3) 02/16/18 06:00 Hct 32.1 % (32.4-45.2) L 02/16/18 06:00 MCV 97.4 fl (80-96) H 02/16/18 06:00 MCH 32.6 pg (25.7-33.7) 02/16/18 06:00 MCHC 33.4 g/dl (32.0-36.0) 02/16/18 06:00 RDW 13.7 % (11.6-15.6) 02/16/18 06:00 Plt Count 152 K/MM3 (134-434) 02/16/18 06:00 MPV 10.4 fl (7.5-11.1) 02/16/18 06:00 Absolute Neuts (auto) 5.0 # 02/16/18 06:00 Neutrophils % 63.0 % (42.8-82.8) 02/16/18 06:00 Lymphocytes % 22.4 % (8-40) 02/16/18 06:00 Monocytes % 8.9 % (3.8-10.2) 02/16/18 06:00 Eosinophils % 4.6 % (0-4.5) H 02/16/18 06:00 Basophils % 1.1 % (0-2.0) 02/16/18 06:00 Nucleated RBC % 0 % (0-0) 02/16/18 06:00 Sodium 146 mmol/L (136-145) H 02/16/18 06:00 Potassium 4.1 mmol/L (3.5-5.1) 02/16/18 06:00 Chloride 111 mmol/L (98-107) H 02/16/18 06:00 Carbon Dioxide 26 mmol/L (21-32) 02/16/18 06:00 Anion Gap 9 (8-16) 02/16/18 06:00 BUN 57 mg/dL (7-18) H 02/16/18 06:00 Creatinine 3.1 mg/dL (0.55-1.02) H 02/16/18 06:00 Creat Clearance w eGFR 14.21 (>60) 02/16/18 06:00 POC Glucometer 93 UNITS (80-120) 02/16/18 06:15 Random Glucose 90 mg/dL (74-106) 02/16/18 06:00 Calcium 8.5 mg/dL (8.5-10.1) 02/16/18 06:00 Phosphorus 4.6 mg/dL (2.5-4.9) 02/16/18 06:00 Magnesium 2.0 mg/dL (1.8-2.4) 02/16/18 06:00 Iron 67 ug/dL (27-139) 02/15/18 06:50 TIBC 241 ug/dL (250-450) L 02/15/18 06:50 Iron Saturation 28 % (15-55) 02/15/18 06:50 Ferritin 178.0 ng/ml (6.9-282.5) 02/15/18 06:50 Total Bilirubin 0.5 mg/dL (0.2-1.0) 02/13/18 20:12 AST 15 U/L (15-37) 02/13/18 20:12 ALT 15 U/L (12-78) 02/13/18 20:12 Alkaline Phosphatase 68 U/L (45-117) 02/13/18 20:12 Creatine Kinase 55 IU/L (26-192) 02/13/18 20:12 Troponin I 0.05 ng/ml (0.00-0.05) 02/14/18 06:03 B-Natriuretic Peptide 42172.92 pg/ml (5-450) H 02/15/18 06:50 Total Protein 6.2 g/dl (6.4-8.2) L 02/13/18 20:12 Albumin 2.9 g/dl (3.4-5.0) L 02/13/18 20:12 Triglycerides 216 mg/dL (35-160) H 02/14/18 09:45 Cholesterol 164 mg/dL (50-200) 02/14/18 09:45 Total LDL Cholesterol 85 mg/dL (5-100) 02/14/18 09:45 HDL Cholesterol 47 mg/dL (40-60) 02/14/18 09:45 TSH 2.44 uIU/ml (0.358-3.74) 02/15/18 06:50 Current Medications Generic Name Dose Route Start Last Admin Trade Name Shadiq PRN Reason Stop Dose Admin Amlodipine Besylate 10 mg 02/14/18 10:00 02/16/18 10:45 Norvasc - PO 10 mg DAILY [facility]HAM Administration Aspirin 81 mg 02/16/18 10:00 02/16/18 10:45 Asa - PO 81 mg DAILY [facility] Administration Atorvastatin Calcium 40 mg 02/14/18 22:00 02/15/18 21:42 Lipitor - PO 40 mg HS [facility]AM Administration Calcium Carbonate/Cholecalciferol 1 tab 02/14/18 10:00 02/16/18 10:45 Os-Pedro 500+D - PO 1 tab DAILY [facility] Administration Cholecalciferol 1,000 unit 02/14/18 10:00 02/16/18 10:45 Vitamin D3 - PO 1,000 unit DAILY [facility] Administration Heparin Sodium (Porcine) 5,000 unit 02/14/18 22:00 02/16/18 10:45 Heparin - SQ 5,000 unit BID [facility] Administration Insulin Aspart 1 vial 02/14/18 07:00 02/16/18 11:09 Novolog Vial Sliding Scale - SQ Not Given TIDAC [facility] Protocol Levothyroxine Sodium 25 mcg 02/14/18 07:00 02/16/18 06:17 Synthroid - PO 25 mcg DAILY@0700 [facility] Administration Metoprolol Succinate 100 mg 02/14/18 10:00 02/16/18 10:45 Toprol Xl - PO 100 mg DAILY [facility] Administration Multivitamins/Minerals/Vitamin C 1 tab 02/14/18 10:00 02/16/18 10:45 Tab-A-Vit - PO 1 tab DAILY [facility] Administration Ondansetron HCl 8 mg 02/14/18 08:36 02/14/18 23:00 Zofran Injection IVPB 8 mg Q8H PRN Administration NAUSEA Ranitidine HCl 150 mg 02/16/18 10:00 02/16/18 10:45 Zantac - PO 150 mg DAILY [facility] Administration Constitutional: No Distress ...Auscultate: Yes: Normoactive Bowel Sounds ...Palpate: Yes: Soft, Other (nontender) Labs: CBC, BMP 02/16/18 06:00 02/16/18 06:00 Laboratory Tests 02/13/18 02/14/18 02/16/18 20:12 06:03 06:00 WBC 8.0 BUN 51 H Creatinine 2.7 H Total Bilirubin 0.5 AST 15 ALT 15 Alkaline Phosphatase 68 Problem List - Problems (1) Nausea Assessment/Plan: Given her normal HbA1C suspect nausea was more likely related to her azotemia than gastroparesis. It is resolved and she is tolerating solids. I have no GI objections to discharge. Code(s): R11.0 - NAUSEA (2) ISELA (acute kidney injury) Code(s): N17.9 - ACUTE KIDNEY FAILURE, UNSPECIFIED (3) Acute on chronic diastolic heart failure Code(s): I50.33 - ACUTE ON CHRONIC DIASTOLIC (CONGESTIVE) HEART FAILURE (4) Diabetes mellitus Code(s): E11.9 - TYPE 2 DIABETES MELLITUS WITHOUT COMPLICATIONS Qualifiers: Diabetes mellitus type: type 2 Diabetes mellitus complication status: with kidney complications Diabetes mellitus complication detail: with chronic kidney disease
--- NOTE | 2018-02-16 11:51 | PN ---
Progress Note, Physician Chief Complaint: Events noted Less cough Not in distress History of Present Illness: Patient was seen and examined. Awake and alert. Chart was reviewed Denies chest pain, SOB or palpitations - Current Medication List Current Medications: Active Medications Amlodipine Besylate (Norvasc -) 10 mg PO DAILY [facility] Last Admin: 02/16/18 10:45 Dose: 10 mg Aspirin (Asa -) 81 mg PO DAILY [facility] Last Admin: 02/16/18 10:45 Dose: 81 mg Atorvastatin Calcium (Lipitor -) 40 mg PO HS [facility] Last Admin: 02/15/18 21:42 Dose: 40 mg Calcium Carbonate/Cholecalciferol (Os-Pedro 500+D -) 1 tab PO DAILY [facility] Last Admin: 02/16/18 10:45 Dose: 1 tab Cholecalciferol (Vitamin D3 -) 1,000 unit PO DAILY [facility] Last Admin: 02/16/18 10:45 Dose: 1,000 unit Heparin Sodium (Porcine) (Heparin -) 5,000 unit SQ BID [facility] Last Admin: 02/16/18 10:45 Dose: 5,000 unit Insulin Aspart (Novolog Vial Sliding Scale -) 1 vial SQ TIDAC [facility]; Protocol Last Admin: 02/16/18 11:09 Dose: Not Given Levothyroxine Sodium (Synthroid -) 25 mcg PO DAILY@0700 [facility] Last Admin: 02/16/18 06:17 Dose: 25 mcg Metoprolol Succinate (Toprol Xl -) 100 mg PO DAILY [facility] Last Admin: 02/16/18 10:45 Dose: 100 mg Multivitamins/Minerals/Vitamin C (Tab-A-Vit -) 1 tab PO DAILY [facility] Last Admin: 02/16/18 10:45 Dose: 1 tab Ondansetron HCl (Zofran Injection) 8 mg IVPB Q8H PRN PRN Reason: NAUSEA Last Admin: 02/14/18 23:00 Dose: 8 mg Ranitidine HCl (Zantac -) 150 mg PO DAILY [facility] Last Admin: 02/16/18 10:45 Dose: 150 mg - Objective Vital Signs: Vital Signs Temperature 97.5 F L 02/16/18 06:00 Pulse Rate 68 02/16/18 10:00 Respiratory Rate 18 02/16/18 10:00 Blood Pressure 134/52 02/16/18 10:00 O2 Sat by Pulse Oximetry (%) 96 02/16/18 09:00 HENT: Yes: Atraumatic Neck: Yes: Supple Cardiovascular: Yes: Regular Rate and Rhythm, S1, S2 Respiratory: Yes: Diminished Gastrointestinal: Yes: Normal Bowel Sounds, Soft. No: Tenderness Edema: No Labs: CBC, BMP 02/16/18 06:00 02/16/18 06:00 Assessment/Plan 1. Acute on chronic diastolic failure with mod aortic stenosis/sclerosis 2. 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 HTN/HCVD 4. Hyperlipidemia 5. Type 2 DM 6. Hypothyroidism 7. CAD, angina pectoris 8. Hyperuricemia 9. Hypernatremia PLAN: 1. Observe off diuretics and free water replete with monitor renal recovery and electrolytes, correct NA 2. Hold Hyzaar pending renal recovery 3. Continue Norvasc 10 qd, ASA 81 qd, Lipitor 40 qhs, Toprol XL 100 qd 4. Echocardiography reviewed 5. DVT prophylaxis Further plans are to follow Cabrera Brandon MD
--- NOTE | 2018-02-16 11:52 | PN ---
Progress Note, Physician History of Present Illness: Feeling a little better, no longer having chest pain, no longer having nausea. Renal function still with acute on chronic insufficiency, but stable from yesterday. - Current Medication List Current Medications: Active Medications Amlodipine Besylate (Norvasc -) 10 mg PO DAILY [facility] Last Admin: 02/16/18 10:45 Dose: 10 mg Aspirin (Asa -) 81 mg PO DAILY [facility] Last Admin: 02/16/18 10:45 Dose: 81 mg Atorvastatin Calcium (Lipitor -) 40 mg PO HS [facility] Last Admin: 02/15/18 21:42 Dose: 40 mg Calcium Carbonate/Cholecalciferol (Os-Pedro 500+D -) 1 tab PO DAILY [facility] Last Admin: 02/16/18 10:45 Dose: 1 tab Cholecalciferol (Vitamin D3 -) 1,000 unit PO DAILY [facility] Last Admin: 02/16/18 10:45 Dose: 1,000 unit Heparin Sodium (Porcine) (Heparin -) 5,000 unit SQ BID [facility] Last Admin: 02/16/18 10:45 Dose: 5,000 unit Insulin Aspart (Novolog Vial Sliding Scale -) 1 vial SQ TIDAC [facility]; Protocol Last Admin: 02/16/18 11:09 Dose: Not Given Levothyroxine Sodium (Synthroid -) 25 mcg PO DAILY@0700 [facility] Last Admin: 02/16/18 06:17 Dose: 25 mcg Metoprolol Succinate (Toprol Xl -) 100 mg PO DAILY [facility] Last Admin: 02/16/18 10:45 Dose: 100 mg Multivitamins/Minerals/Vitamin C (Tab-A-Vit -) 1 tab PO DAILY [facility] Last Admin: 02/16/18 10:45 Dose: 1 tab Ondansetron HCl (Zofran Injection) 8 mg IVPB Q8H PRN PRN Reason: NAUSEA Last Admin: 02/14/18 23:00 Dose: 8 mg Ranitidine HCl (Zantac -) 150 mg PO DAILY [facility] Last Admin: 02/16/18 10:45 Dose: 150 mg - Objective Vital Signs: Vital Signs Temperature 97.5 F L 02/16/18 06:00 Pulse Rate 68 02/16/18 10:00 Respiratory Rate 18 02/16/18 10:00 Blood Pressure 134/52 02/16/18 10:00 O2 Sat by Pulse Oximetry (%) 96 02/16/18 09:00 Constitutional: Yes: Well Nourished, No Distress, Calm HENT: Yes: Atraumatic, Normocephalic Neck: Yes: Supple, Trachea Midline Cardiovascular: Yes: Regular Rate and Rhythm, S1, S2. No: Murmur Respiratory: Yes: Regular, CTA Bilaterally. No: Rales, Rhonchi, Wheezes Gastrointestinal: Yes: Normal Bowel Sounds, Soft. No: Distention, Tenderness Edema: No Neurological: Yes: Alert, Oriented Labs: CBC, BMP 02/16/18 06:00 02/16/18 06:00 Assessment/Plan Current Active Problems ISELA (acute kidney injury) (Acute) Acute on chronic diastolic heart failure (Acute) [id number] kidney injury (Acute) Aortic stenosis, moderate (Acute) Chest pressure (Acute) Cough (Acute) Diabetes mellitus (Acute) HLD (hyperlipidemia) (Acute) HTN (hypertension) (Acute) Hoarseness of voice (Acute) Hypothyroidism (Acute) Nausea (Acute) -ruled out for ACS, -following ARF currently -appears to be stabilizing -PT for ambulation -may benefit from STR for reconditioning -discussed with family at bedside
[2018-02-16] MEDS: ATORVASTATIN CA 40 MG TABLET (FP) PO SCH (22:38)
[2018-02-17] MEDS ORDERED: PT OWN MED DRAWER 7, Y5N ONE ×2 (05:50→09:17)
[2018-02-17] MEDS: INSULIN SLIDING SCALE (NOVOLOG) 1 VIAL SQ SCH ×3 (06:42→19:28)
[2018-02-17] MEDS: LEVOTHYROXINE NA 25 MCG TABLET (FP) PO SCH (06:45)
[2018-02-17 07:26] LABS: ALBUMIN 2.5 g/dl (3.4-5.0); ANION GAP 8 (8-16); BLOOD UREA NITROGEN 57 mg/dL (7-18); CALCIUM 8.4 mg/dL (8.5-10.1); CHLORIDE 110 mmol/L (98-107); CO2 27 mmol/L (21-32); GLUCOSE,RANDOM 93 mg/dL (74-106); POTASSIUM 4.1 mmol/L (3.5-5.1); SODIUM 145 mmol/L (136-145)
[2018-02-17 07:30] LABS: ALK PHOS 64 U/L (45-117); BILIRUBIN,TOTAL 0.3 mg/dL (0.2-1.0); SGOT/AST 16 U/L (15-37); SGPT/ALT 16 U/L (12-78); TOT PROT 5.6 g/dl (6.4-8.2)
--- NOTE | 2018-02-17 09:36 | PN ---
Progress Note (short form) - Note Progress Note: Renal follow up for CKD pt seen and examined at the bedside complains of constipation no sob, chest pain, abd pain making urine Vital Signs Temperature 98 F 02/17/18 05:00 Pulse Rate 60 02/17/18 05:00 Respiratory Rate 20 02/17/18 05:00 Blood Pressure 133/47 02/17/18 05:00 O2 Sat by Pulse Oximetry (%) 96 02/16/18 21:00 Intake & Output 02/14/18 02/15/18 02/16/18 02/17/18 23:59 23:59 23:59 23:59 Intake Total 450 1015 820 Output Total 1000 Balance -550 1015 820 Weight 79.379 kg 79.379 kg NAD RRR CTA no edema CBC, BMP 02/16/18 06:00 02/17/18 06:00 Current Medications Amlodipine Besylate (Norvasc -) 10 mg PO DAILY [facility] Last Admin: 02/16/18 10:45 Dose: 10 mg Aspirin (Asa -) 81 mg PO DAILY [facility] Last Admin: 02/16/18 10:45 Dose: 81 mg Atorvastatin Calcium (Lipitor -) 40 mg PO HS [facility] Last Admin: 02/16/18 22:38 Dose: 40 mg Calcium Carbonate/Cholecalciferol (Os-Pedro 500+D -) 1 tab PO DAILY [facility] Last Admin: 02/16/18 10:45 Dose: 1 tab Cholecalciferol (Vitamin D3 -) 1,000 unit PO DAILY [facility] Last Admin: 02/16/18 10:45 Dose: 1,000 unit Furosemide (Lasix -) 20 mg PO DAILY [facility] Heparin Sodium (Porcine) (Heparin -) 5,000 unit SQ BID [facility] Last Admin: 02/16/18 22:38 Dose: 5,000 unit Insulin Aspart (Novolog Vial Sliding Scale -) 1 vial SQ TIDAC [facility]; Protocol Last Admin: 02/17/18 06:42 Dose: Not Given Levothyroxine Sodium (Synthroid -) 25 mcg PO DAILY@0700 [facility] Last Admin: 02/17/18 06:45 Dose: 25 mcg Metoprolol Succinate (Toprol Xl -) 100 mg PO DAILY [facility] Last Admin: 02/16/18 10:45 Dose: 100 mg Multivitamins/Minerals/Vitamin C (Tab-A-Vit -) 1 tab PO DAILY [facility] Last Admin: 02/16/18 10:45 Dose: 1 tab Ondansetron HCl (Zofran Injection) 8 mg IVPB Q8H PRN PRN Reason: NAUSEA Last Admin: 02/14/18 23:00 Dose: 8 mg Ranitidine HCl (Zantac -) 150 mg PO DAILY [facility] Last Admin: 02/16/18 10:45 Dose: 150 mg 88 year old woman with PMhx of CKD stage 4 (baseline Cr 2.7), DM, Hypertension, HLD, Breast Ca, Depression who presented with chest pain and pressure and admitted for r/o ACS. 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
[2018-02-17] MEDS ORDERED: POLYETHYLENE GLYCOL 3350 119 GM BTL PO ONE (09:37)
[2018-02-17] MEDS: ASPIRIN 81 MG CHEWABLE TABLETS PO SCH (10:12)
[2018-02-17] MEDS: amLODIPine BESYLATE 10 MG TABLET (FP) PO SCH (10:12)
[2018-02-17] MEDS: RANITIDINE HCL 150 MG TABLET (FP) PO SCH (10:12)
[2018-02-17] MEDS: CHOLECALCIFEROL (VITAMIN D3) 1,000 UNIT TABLET (FP) PO SCH (10:13)
[2018-02-17] MEDS: MULTIVITAMINS (DAILY MVI) TABLET (FP) PO SCH (10:13)
[2018-02-17] MEDS: CALCIUM 500MG/VIT-D 200 UNITS COMBO TABLET (FP) PO SCH (10:13)
[2018-02-17] MEDS: FUROSEMIDE 20 MG TABLET (FP) PO SCH (10:15)
--- NOTE | 2018-02-17 10:15 | DS ---
Physical Examination Vital Signs: Vital Signs Temperature 98 F 02/17/18 05:00 Pulse Rate 60 02/17/18 05:00 Respiratory Rate 20 02/17/18 05:00 Blood Pressure 133/47 02/17/18 05:00 O2 Sat by Pulse Oximetry (%) 96 02/16/18 21:00 Constitutional: Yes: No Distress, Calm Eyes: Yes: Conjunctiva Clear, EOM Intact, PERRL HENT: Yes: Atraumatic, Normocephalic Neck: Yes: Supple, Trachea Midline Cardiovascular: Yes: Regular Rate and Rhythm, S1, S2. No: Murmur Respiratory: Yes: Regular, CTA Bilaterally. No: Rales, Rhonchi, Wheezes Gastrointestinal: Yes: Normal Bowel Sounds, Soft. No: Distention, Tenderness Edema: No Neurological: Yes: Alert, Oriented Labs: CBC, BMP 02/16/18 06:00 02/17/18 06:00 Discharge Summary Reason For Visit: COUGH HOARSENESS SENSATION OF CHEST PRES Current Active Problems ISELA (acute kidney injury) (Acute) Acute on chronic diastolic heart failure (Acute) [id number] kidney injury (Acute) Aortic stenosis, moderate (Acute) Chest pressure (Acute) Cough (Acute) Diabetes mellitus (Acute) HLD (hyperlipidemia) (Acute) HTN (hypertension) (Acute) Hoarseness of voice (Acute) Hypothyroidism (Acute) Nausea (Acute) Hospital Course: 88 yo female admitted with weakness and chest pressure. ADmitted to r/o ACS, found to have worsening renal insufficiency (has baseline diabetic nephropathy) . Medications were stopped -including vasotec, Losartan/ HCT and glipizide. Lasix was held as well. Yesterday patient walked with physical therapy and tolerated 65 feet. Will be discharged today (social services director to arrange for [facility]) . To remain off vasotec, losartan?HCT and glipizide for now and follow-up in the office to see if needs to restart something for diabetes Condition: Stable - Instructions Referrals: Walker Padilla MD [Primary Care Provider] - Genesis Vargas MD [Staff Physician] - Disposition: [facility]/HOME HEALTH CARE - Home Medications Comprehensive Discharge Medication List: Ambulatory Orders Allopurinol [Zyloprim -] 200 mg PO DAILY 03/19/14 Amlodipine Besylate [Norvasc -] 10 mg PO DAILY 03/19/14 Aspirin [ASA -] 325 mg PO DAILY 03/19/14 Atorvastatin Ca [Lipitor] 40 mg PO HS 03/19/14 Cholecalciferol (Vitamin D3) [Vitamin D3] 1,000 unit PO DAILY 03/19/14 Furosemide [Lasix -] 20 mg PO DAILY 03/19/14 Metoprolol Succinate [Toprol XL -] 100 mg PO DAILY 03/19/14 Multivitamins [Multivit ([facility] Formulary)] 1 tab PO DAILY 03/19/14 Guar Gum [Benefiber] 1 each PO BID #0 packet 05/21/14 Calcium Carbonate/Vitamin D3 [Calcium 500-Vit D3 200 Caplet] 1 each PO DAILY 06/23 Levothyroxine [Synthroid -] 25 mcg PO DAILY 02/13/18 Furosemide [Lasix -] 20 mg PO DAILY tablet 02/17/18
--- NOTE | 2018-02-17 10:23 | PN ---
Progress Note, Physician Chief Complaint: Events noted Less cough Not in distress History of Present Illness: Patient was seen and examined. Awake and alert. Chart was reviewed Denies chest pain, SOB or palpitations - Current Medication List Current Medications: Active Medications Amlodipine Besylate (Norvasc -) 10 mg PO DAILY [facility] Last Admin: 02/16/18 10:45 Dose: 10 mg Aspirin (Asa -) 81 mg PO DAILY [facility] Last Admin: 02/16/18 10:45 Dose: 81 mg Atorvastatin Calcium (Lipitor -) 40 mg PO HS [facility] Last Admin: 02/16/18 22:38 Dose: 40 mg Calcium Carbonate/Cholecalciferol (Os-Pedro 500+D -) 1 tab PO DAILY [facility] Last Admin: 02/16/18 10:45 Dose: 1 tab Cholecalciferol (Vitamin D3 -) 1,000 unit PO DAILY [facility] Last Admin: 02/16/18 10:45 Dose: 1,000 unit Furosemide (Lasix -) 20 mg PO DAILY [facility] Heparin Sodium (Porcine) (Heparin -) 5,000 unit SQ BID [facility] Last Admin: 02/16/18 22:38 Dose: 5,000 unit Insulin Aspart (Novolog Vial Sliding Scale -) 1 vial SQ TIDAC [facility]; Protocol Last Admin: 02/17/18 06:42 Dose: Not Given Levothyroxine Sodium (Synthroid -) 25 mcg PO DAILY@0700 [facility] Last Admin: 02/17/18 06:45 Dose: 25 mcg Metoprolol Succinate (Toprol Xl -) 100 mg PO DAILY [facility] Last Admin: 02/16/18 10:45 Dose: 100 mg Multivitamins/Minerals/Vitamin C (Tab-A-Vit -) 1 tab PO DAILY [facility] Last Admin: 02/16/18 10:45 Dose: 1 tab Ondansetron HCl (Zofran Injection) 8 mg IVPB Q8H PRN PRN Reason: NAUSEA Last Admin: 02/14/18 23:00 Dose: 8 mg Ranitidine HCl (Zantac -) 150 mg PO DAILY [facility] Last Admin: 02/16/18 10:45 Dose: 150 mg - Objective Vital Signs: Vital Signs Temperature 98 F 02/17/18 05:00 Pulse Rate 60 02/17/18 05:00 Respiratory Rate 20 02/17/18 05:00 Blood Pressure 133/47 02/17/18 05:00 O2 Sat by Pulse Oximetry (%) 96 02/16/18 21:00 Eyes: Yes: PERRL HENT: Yes: Atraumatic Neck: Yes: Supple Cardiovascular: Yes: Regular Rate and Rhythm, S1, S2 Respiratory: Yes: CTA Bilaterally Gastrointestinal: Yes: Normal Bowel Sounds, Soft. No: Tenderness Edema: No Labs: CBC, BMP 02/16/18 06:00 02/17/18 06:00 Problem List - Problems (1) Acute on chronic diastolic heart failure Code(s): I50.33 - ACUTE ON CHRONIC DIASTOLIC (CONGESTIVE) HEART FAILURE (2) Iqxna-uw-sestmpl kidney injury Code(s): N17.9 - ACUTE KIDNEY FAILURE, UNSPECIFIED; N18.9 - CHRONIC KIDNEY DISEASE, UNSPECIFIED Qualifiers: Acute renal failure type: unspecified (3) Aortic stenosis, moderate Code(s): I35.0 - NONRHEUMATIC AORTIC (VALVE) STENOSIS (4) Cough Code(s): R05 - COUGH (5) Diabetes mellitus Code(s): E11.9 - TYPE 2 DIABETES MELLITUS WITHOUT COMPLICATIONS Qualifiers: Diabetes mellitus type: type 2 Diabetes mellitus complication status: with kidney complications Diabetes mellitus complication detail: with chronic kidney disease (6) HLD (hyperlipidemia) Code(s): E78.5 - HYPERLIPIDEMIA, UNSPECIFIED Qualifiers: Hyperlipidemia type: pure hypercholesterolemia Qualified Code(s): E78.00 - Pure hypercholesterolemia, unspecified; E78.0 - Pure hypercholesterolemia (7) HTN (hypertension) Code(s): I10 - ESSENTIAL (PRIMARY) HYPERTENSION Qualifiers: Hypertension type: essential hypertension Qualified Code(s): I10 - Essential (primary) hypertension (8) Hypothyroidism Code(s): E03.9 - HYPOTHYROIDISM, UNSPECIFIED Qualifiers: Hypothyroidism type: unspecified Qualified Code(s): E03.9 - Hypothyroidism , unspecified Assessment/Plan 1. Acute on chronic diastolic failure with mod aortic stenosis/sclerosis 2. 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 HTN/HCVD 4. Hyperlipidemia 5. Type 2 DM 6. Hypothyroidism 7. CAD, angina pectoris 8. Hyperuricemia 9. Hypernatremia PLAN: 1. Monitor renal recovery and electrolytes, correct NA 2. Hold Hyzaar pending renal recovery 3. Continue Norvasc 10 qd, ASA 81 qd, Lipitor 40 qhs, Toprol XL 100 qd 4. DVT prophylaxis Further plans are to follow Cabrera Brandon MD
[2018-02-17] MEDS: HEPARIN NA (PORCINE) 5,000 UNITS/ML 1ML VIAL SQ SCH ×2 (10:27→21:27)
[2018-02-17 11:34] LABS: ARTERIAL BLD GAS O2 SATURATION 88.9 % (90-98.9); ARTERIAL BLOOD GAS PCO2 41.3 mmHg (35-45)
[2018-02-17 11:35] LABS: ALLENS TEST POSITIVE
--- NOTE | 2018-02-17 12:03 | PN ---
Progress Note (short form) - Note Progress Note: Patient set up for discharge home today, but O2 sats measured 85% on RA ( yesterday was 94% with exertion). Was re-started on Lasix today. ABG showing O2 sat 88.9%. Hypoxia may be due to pulm edema from being off lasix (echo in hospital showing moderately reduced LV function). Will cancel discharge and patient to get CXR as well.
[2018-02-17] MEDS ORDERED: FUROSEMIDE 40 MG/4 ML INJECTABLE VIAL ONE (12:39)
[2018-02-17] MEDS ORDERED: FUROSEMIDE 40 MG/4 ML INJECTABLE VIAL IVPUSH ONE (12:41)
[2018-02-17] MEDS: ATORVASTATIN CA 40 MG TABLET (FP) PO SCH (21:25)
[2018-02-18] MEDS: INSULIN SLIDING SCALE (NOVOLOG) 1 VIAL SQ SCH ×3 (06:14→17:25)
[2018-02-18] MEDS: LEVOTHYROXINE NA 25 MCG TABLET (FP) PO SCH (06:21)
[2018-02-18 07:25] LABS: ANION GAP 8 (8-16); BLOOD UREA NITROGEN 59 mg/dL (7-18); CHLORIDE 108 mmol/L (98-107); CO2 29 mmol/L (21-32); CREATININE 3.1 mg/dL (0.55-1.02); GLUCOSE,RANDOM 91 mg/dL (74-106); MAGNESIUM 1.9 mg/dL (1.8-2.4); PHOSPHOROUS 4.2 mg/dL (2.5-4.9); POTASSIUM 4.1 mmol/L (3.5-5.1); SODIUM 145 mmol/L (136-145)
[2018-02-18] MEDS: ASPIRIN 81 MG CHEWABLE TABLETS PO SCH (09:36)
[2018-02-18] MEDS: MULTIVITAMINS (DAILY MVI) TABLET (FP) PO SCH (09:36)
[2018-02-18] MEDS: amLODIPine BESYLATE 10 MG TABLET (FP) PO SCH (09:36)
[2018-02-18] MEDS: HEPARIN NA (PORCINE) 5,000 UNITS/ML 1ML VIAL SQ SCH ×2 (09:37→23:03)
[2018-02-18] MEDS: CHOLECALCIFEROL (VITAMIN D3) 1,000 UNIT TABLET (FP) PO SCH (09:37)
[2018-02-18] MEDS: FUROSEMIDE 20 MG TABLET (FP) PO SCH (09:37)
[2018-02-18] MEDS: RANITIDINE HCL 150 MG TABLET (FP) PO SCH (09:37)
[2018-02-18] MEDS: CALCIUM 500MG/VIT-D 200 UNITS COMBO TABLET (FP) PO SCH (09:37)
--- NOTE | 2018-02-18 10:01 | PN ---
Progress Note (short form) - Note Progress Note: Dr. Sweet to document today. Worried about sudden drop O2 sat Sunday. Still some persistent infiltrate left and pleural effusion right side. ? CT scan or Vent-perfusion lung scan. Still nausea off and on and appetite poor with 1/3 to 1/5 meals taken in.
--- NOTE | 2018-02-18 12:33 | PN ---
Progress Note, Physician History of Present Illness: No further chest pain, dyspnea and orthopnea. Eating lunch sitting up in bed. - Current Medication List Current Medications: Active Medications Amlodipine Besylate (Norvasc -) 10 mg PO DAILY [facility] Last Admin: 02/18/18 09:36 Dose: 10 mg Aspirin (Asa -) 81 mg PO DAILY [facility] Last Admin: 02/18/18 09:36 Dose: 81 mg Atorvastatin Calcium (Lipitor -) 40 mg PO HS [facility] Last Admin: 02/17/18 21:25 Dose: 40 mg Calcium Carbonate/Cholecalciferol (Os-Pedro 500+D -) 1 tab PO DAILY [facility] Last Admin: 02/18/18 09:37 Dose: 1 tab Cholecalciferol (Vitamin D3 -) 1,000 unit PO DAILY [facility] Last Admin: 02/18/18 09:37 Dose: 1,000 unit Furosemide (Lasix -) 20 mg PO DAILY [facility] Last Admin: 02/18/18 09:37 Dose: 20 mg Heparin Sodium (Porcine) (Heparin -) 5,000 unit SQ BID [facility] Last Admin: 02/18/18 09:37 Dose: 5,000 unit Insulin Aspart (Novolog Vial Sliding Scale -) 1 vial SQ TIDAC [facility]; Protocol Last Admin: 02/18/18 10:44 Dose: Not Given Levothyroxine Sodium (Synthroid -) 25 mcg PO DAILY@0700 [facility] Last Admin: 02/18/18 06:21 Dose: 25 mcg Metoprolol Succinate (Toprol Xl -) 100 mg PO DAILY [facility] Last Admin: 02/18/18 09:37 Dose: 100 mg Multivitamins/Minerals/Vitamin C (Tab-A-Vit -) 1 tab PO DAILY [facility] Last Admin: 02/18/18 09:36 Dose: 1 tab Ondansetron HCl (Zofran Injection) 8 mg IVPB Q8H PRN PRN Reason: NAUSEA Last Admin: 02/14/18 23:00 Dose: 8 mg Ranitidine HCl (Zantac -) 150 mg PO DAILY [facility] Last Admin: 02/18/18 09:37 Dose: 150 mg - Objective Vital Signs: Vital Signs Temperature 97.9 F 02/18/18 06:00 Pulse Rate 64 02/18/18 10:00 Respiratory Rate 18 02/18/18 10:00 Blood Pressure 142/61 02/18/18 10:00 O2 Sat by Pulse Oximetry (%) 97 02/17/18 21:00 Constitutional: Yes: No Distress, Calm, Thin Neck: Yes: Supple Cardiovascular: Yes: Regular Rate and Rhythm, Murmur (2/6 SM) Respiratory: Yes: Regular, Diminished Gastrointestinal: Yes: Normal Bowel Sounds, Soft Edema: No Labs: CBC, BMP 02/16/18 06:00 02/18/18 05:55 - ....Imaging Chest X-ray: Report Reviewed (Right effusion) Problem List - Problems (1) Hypothyroidism Code(s): E03.9 - HYPOTHYROIDISM, UNSPECIFIED Qualifiers: Hypothyroidism type: unspecified Qualified Code(s): E03.9 - Hypothyroidism , unspecified (2) Bcvux-gy-salrbgi kidney injury Code(s): N17.9 - ACUTE KIDNEY FAILURE, UNSPECIFIED; N18.9 - CHRONIC KIDNEY DISEASE, UNSPECIFIED Qualifiers: Acute renal failure type: unspecified (3) Diabetes mellitus Code(s): E11.9 - TYPE 2 DIABETES MELLITUS WITHOUT COMPLICATIONS Qualifiers: Diabetes mellitus type: type 2 Diabetes mellitus complication status: with kidney complications Diabetes mellitus complication detail: with chronic kidney disease (4) HLD (hyperlipidemia) Code(s): E78.5 - HYPERLIPIDEMIA, UNSPECIFIED Qualifiers: Hyperlipidemia type: pure hypercholesterolemia Qualified Code(s): E78.00 - Pure hypercholesterolemia, unspecified; E78.0 - Pure hypercholesterolemia (5) HTN (hypertension) Code(s): I10 - ESSENTIAL (PRIMARY) HYPERTENSION Qualifiers: Hypertension type: essential hypertension Qualified Code(s): I10 - Essential (primary) hypertension (6) Acute on chronic systolic and diastolic heart failure, NYHA class 3 Code(s): I50.43 - ACUTE ON CHRONIC COMBINED SYSTOLIC AND DIASTOLIC HRT FAIL Assessment/Plan Lexiscan MPI: 05/10/2016 Small mild anterior and inferior ischemia, LVEF 65% Echo: 06/25/2015 conc LVH, with normal LV systolic function mod LOUISE 1.1 cm^2 , mild TR, MR, AR Echocardiogram: 02/15/2018 Moderate decreased LV fxn, mild LAE, mild-mod MR, AR , mod TR, aortic sclerosis 1. Acute on chronic diastolic/systolic failure with pleural effusion improved 2. 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 HTN/HCVD 4. Hyperlipidemia 5. Type 2 DM 6. Hypothyroidism 7. CAD, angina pectoris 8. Hyperuricemia 9. Hypernatremia improved P: 1. Lasix 20 qd and free water replete with monitor renal recovery and electrolytes 2. Hold Hyzaar pending given low eGFR 3. Continue Norvasc 10 qd, ASA 81 qd, Lipitor 40 qhs, Toprol XL 100qd 4. DVT and GI prophylaxis
--- NOTE | 2018-02-18 12:39 | PN ---
Progress Note, Physician Chief Complaint: Ms Lua says she is doing well. No cp, sob, yates, or n/v. - Current Medication List Current Medications: Active Medications Amlodipine Besylate (Norvasc -) 10 mg PO DAILY [facility] Last Admin: 02/18/18 09:36 Dose: 10 mg Aspirin (Asa -) 81 mg PO DAILY [facility] Last Admin: 02/18/18 09:36 Dose: 81 mg Atorvastatin Calcium (Lipitor -) 40 mg PO HS [facility] Last Admin: 02/17/18 21:25 Dose: 40 mg Calcium Carbonate/Cholecalciferol (Os-Pedro 500+D -) 1 tab PO DAILY [facility] Last Admin: 02/18/18 09:37 Dose: 1 tab Cholecalciferol (Vitamin D3 -) 1,000 unit PO DAILY [facility] Last Admin: 02/18/18 09:37 Dose: 1,000 unit Furosemide (Lasix -) 20 mg PO DAILY [facility] Last Admin: 02/18/18 09:37 Dose: 20 mg Heparin Sodium (Porcine) (Heparin -) 5,000 unit SQ BID [facility] Last Admin: 02/18/18 09:37 Dose: 5,000 unit Insulin Aspart (Novolog Vial Sliding Scale -) 1 vial SQ TIDAC [facility]; Protocol Last Admin: 02/18/18 10:44 Dose: Not Given Levothyroxine Sodium (Synthroid -) 25 mcg PO DAILY@0700 [facility] Last Admin: 02/18/18 06:21 Dose: 25 mcg Metoprolol Succinate (Toprol Xl -) 100 mg PO DAILY [facility] Last Admin: 02/18/18 09:37 Dose: 100 mg Multivitamins/Minerals/Vitamin C (Tab-A-Vit -) 1 tab PO DAILY [facility] Last Admin: 02/18/18 09:36 Dose: 1 tab Ondansetron HCl (Zofran Injection) 8 mg IVPB Q8H PRN PRN Reason: NAUSEA Last Admin: 02/14/18 23:00 Dose: 8 mg Ranitidine HCl (Zantac -) 150 mg PO DAILY [facility] Last Admin: 02/18/18 09:37 Dose: 150 mg - Objective Vital Signs: Vital Signs Temperature 36.6 C 02/18/18 06:00 Pulse Rate 64 02/18/18 10:00 Respiratory Rate 18 02/18/18 10:00 Blood Pressure 142/61 02/18/18 10:00 O2 Sat by Pulse Oximetry (%) 97 02/17/18 21:00 Constitutional: Yes: No Distress, Calm, Obese Cardiovascular: Yes: Regular Rate and Rhythm. No: Gallop, Murmur, Rub Respiratory: Yes: Regular, On Nasal O2, Rhonchi (slight). No: CTA Bilaterally, Rales, Wheezes Gastrointestinal: Yes: Normal Bowel Sounds, Soft. No: Distention, Tenderness Extremities: Yes: WNL Edema: No Labs: CBC, BMP 02/16/18 06:00 02/18/18 05:55 Problem List - Problems (1) Chest pressure Code(s): R07.89 - OTHER CHEST PAIN (2) Acute on chronic diastolic heart failure Code(s): I50.33 - ACUTE ON CHRONIC DIASTOLIC (CONGESTIVE) HEART FAILURE (3) [place]-ojgleoh kidney injury Code(s): N17.9 - ACUTE KIDNEY FAILURE, UNSPECIFIED; N18.9 - CHRONIC KIDNEY DISEASE, UNSPECIFIED Qualifiers: Acute renal failure type: unspecified (4) Aortic stenosis, moderate Code(s): I35.0 - NONRHEUMATIC AORTIC (VALVE) STENOSIS (5) Diabetes mellitus Code(s): E11.9 - TYPE 2 DIABETES MELLITUS WITHOUT COMPLICATIONS Qualifiers: Diabetes mellitus type: type 2 Diabetes mellitus complication status: with kidney complications Diabetes mellitus complication detail: with chronic kidney disease (6) HLD (hyperlipidemia) Code(s): E78.5 - HYPERLIPIDEMIA, UNSPECIFIED Qualifiers: Hyperlipidemia type: pure hypercholesterolemia Qualified Code(s): E78.00 - Pure hypercholesterolemia, unspecified; E78.0 - Pure hypercholesterolemia (7) HTN (hypertension) Code(s): I10 - ESSENTIAL (PRIMARY) HYPERTENSION Qualifiers: Hypertension type: essential hypertension Qualified Code(s): I10 - Essential (primary) hypertension (8) Hypothyroidism Code(s): E03.9 - HYPOTHYROIDISM, UNSPECIFIED Qualifiers: Hypothyroidism type: unspecified Qualified Code(s): E03.9 - Hypothyroidism , unspecified Assessment/Plan (1) Chest pressure Assessment/Plan: -not cardiac in nature -resolved Code(s): R07.89 - OTHER CHEST PAIN (2) Acute on chronic diastolic heart failure Assessment/Plan: -lasix restarted -patient feels better -however pleural effusion noted on chest x-ray -will consult pulmonary as well, thoracentesis vs V/Q scan Code(s): I50.33 - ACUTE ON CHRONIC DIASTOLIC (CONGESTIVE) HEART FAILURE (3) Qqujy-ay-iicfkvl kidney injury Assessment/Plan -stable -nephrology following -lasix restarted Code(s): N17.9 - ACUTE KIDNEY FAILURE, UNSPECIFIED; N18.9 - CHRONIC KIDNEY DISEASE, UNSPECIFIED Qualifiers: Acute renal failure type: unspecified (4) Aortic stenosis, moderate Assessment/Plan: -no murmur heard during my exam Code(s): I35.0 - NONRHEUMATIC AORTIC (VALVE) STENOSIS (5) Diabetes mellitus Assessment/Plan: -low sodium diabetic diet -continue SSI -on glipizide as an outpatient Code(s): E11.9 - TYPE 2 DIABETES MELLITUS WITHOUT COMPLICATIONS Qualifiers: Diabetes mellitus type: type 2 Diabetes mellitus complication status: with kidney complications Diabetes mellitus complication detail: with chronic kidney disease (6) HLD (hyperlipidemia) Assessment/Plan: -continue statin Code(s): E78.5 - HYPERLIPIDEMIA, UNSPECIFIED Qualifiers: Hyperlipidemia type: pure hypercholesterolemia Qualified Code(s): E78.00 - Pure hypercholesterolemia, unspecified; E78.0 - Pure hypercholesterolemia (7) HTN (hypertension) Assessment/Plan: -controlled -continue toprol xl and norvasc -monitor Code(s): I10 - ESSENTIAL (PRIMARY) HYPERTENSION Qualifiers: Hypertension type: essential hypertension Qualified Code(s): I10 - Essential (primary) hypertension (8) Hypothyroidism Assessment/Plan: -continue synthroid Code(s): E03.9 - HYPOTHYROIDISM, UNSPECIFIED Qualifiers: Hypothyroidism type: unspecified Qualified Code(s): E03.9 - Hypothyroidism , unspecified
--- NOTE | 2018-02-18 17:50 | CON.ENT ---
Consult Consult Specialty:: ENT Referred by:: Dr. Padilla Reason for Consultation:: nasal bleeding - History of Present Illness Chief Complaint: nasal bleeding History of Present Illness: 88 yo F admitted, had significant right sided nasal bleeding 7-12-18 PM, no significant bleeding since. on nasal oxygen , recently humidified - History Source History Provided By: Patient, Medical Record Limitations to Obtaining History: No Limitations - Past Medical History Cardio/Vascular: Yes: CAD (s/p stents around 20 years ago ), CHF, HTN, Hyperlipdemia Renal/: Yes: Other (1 working kidney due to ? renal atrophy ) ...: No Endocrine: Yes: Diabetes Mellitus - Past Surgical History Past Surgical History: Yes: Mastectomy (partial R sided ) - Alcohol/Substance Use Hx Alcohol Use: No History of Substance Use: reports: None - Smoking History Smoking history: Never smoked Have you smoked in the past 12 months: No Aproximately how many cigarettes per day: 0 - Social History Usual Living Arrangement: Alone ADL: Independent Home Medications - Allergies Allergies/Adverse Reactions: Allergies Allergy/AdvReac Type Severity Reaction Status Date / Time metronidazole [From Flagyl] Allergy Severe Swelling Verified 02/13/18 17:02 - Home Medications Home Medications: Ambulatory Orders Allopurinol [Zyloprim -] 200 mg PO DAILY 03/19/14 Amlodipine Besylate [Norvasc -] 10 mg PO DAILY 03/19/14 Aspirin [ASA -] 325 mg PO DAILY 03/19/14 Atorvastatin Ca [Lipitor] 40 mg PO HS 03/19/14 Cholecalciferol (Vitamin D3) [Vitamin D3] 1,000 unit PO DAILY 03/19/14 Furosemide [Lasix -] 20 mg PO DAILY 03/19/14 Metoprolol Succinate [Toprol XL -] 100 mg PO DAILY 03/19/14 Multivitamins [Multivit ([facility] Formulary)] 1 tab PO DAILY 03/19/14 Guar Gum [Benefiber] 1 each PO BID #0 packet 05/21/14 Calcium Carbonate/Vitamin D3 [Calcium 500-Vit D3 200 Caplet] 1 each PO DAILY 06/23 Levothyroxine [Synthroid -] 25 mcg PO DAILY 02/13/18 Furosemide [Lasix -] 20 mg PO DAILY tablet 02/17/18 Family Disease History - Family Disease History Other Family History: no known family histroy of any GI malignancies- all of her family lives in [place] and does not know Physical Exam-ENT Vital Signs: Vital Signs Temperature 97.5 F L 02/18/18 14:26 Pulse Rate 63 02/18/18 14:26 Respiratory Rate 17 02/18/18 14:26 Blood Pressure 150/85 02/18/18 14:26 O2 Sat by Pulse Oximetry (%) 99 02/18/18 09:00 Constitutional: Yes: Well Nourished, No Distress, Calm Head: Yes: WNL Face: Yes: WNL Eyes: Yes: WNL Nose: Yes: Other (crusting, anterior nasal cavities, dry, NO blood or active bleeding) Oral/Pharynx: Yes: WNL Outer Ear: Yes: WNL Imaging - Results Chest X-ray: Report Reviewed Cat Scan: Report Reviewed (no sinusitis , some DNS) Problem List - Problems (1) Nasal bleeding Assessment/Plan: acute epistaxis 7-12-18 PM primarily right sided nasal oxygen therapy suspected risk factor no further bleeding, no discrete site of bleeding identified but significant nasal dryness present on exam Recommend: nasal saline spray epistaxis precautions return to office after discharge for outpatient follow-up Thank you for consultation, Jonathan Woodward MD FACS Code(s): R04.0 - EPISTAXIS
--- NOTE | 2018-02-18 19:07 | PN ---
Progress Note (short form) - Note Progress Note: Renal follow up for CKD pt seen and examined at the bedside awake and alert no acute complaints sob is better on NC O2 making urine Vital Signs Temperature 97.5 F L 02/18/18 14:26 Pulse Rate 63 02/18/18 14:26 Respiratory Rate 17 02/18/18 14:26 Blood Pressure 150/85 02/18/18 14:26 O2 Sat by Pulse Oximetry (%) 99 02/18/18 09:00 Intake & Output 02/15/18 02/16/18 02/17/18 02/18/18 23:59 23:59 23:59 23:59 Intake Total 1015 820 920 200 Output Total 1100 300 Balance 1015 820 -180 -100 Weight 79.379 kg 77.111 kg NAD RRR CTA no edema CBC, BMP 02/16/18 06:00 02/18/18 05:55 Current Medications Amlodipine Besylate (Norvasc -) 10 mg PO DAILY [facility] Last Admin: 02/18/18 09:36 Dose: 10 mg Aspirin (Asa -) 81 mg PO DAILY [facility] Last Admin: 02/18/18 09:36 Dose: 81 mg Atorvastatin Calcium (Lipitor -) 40 mg PO HS [facility] Last Admin: 02/17/18 21:25 Dose: 40 mg Calcium Carbonate/Cholecalciferol (Os-Pedro 500+D -) 1 tab PO DAILY [facility] Last Admin: 02/18/18 09:37 Dose: 1 tab Cholecalciferol (Vitamin D3 -) 1,000 unit PO DAILY [facility] Last Admin: 02/18/18 09:37 Dose: 1,000 unit Furosemide (Lasix -) 20 mg PO DAILY [facility] Last Admin: 02/18/18 09:37 Dose: 20 mg Heparin Sodium (Porcine) (Heparin -) 5,000 unit SQ BID [facility] Last Admin: 02/18/18 09:37 Dose: 5,000 unit Insulin Aspart (Novolog Vial Sliding Scale -) 1 vial SQ TIDAC [facility]; Protocol Last Admin: 02/18/18 17:25 Dose: Not Given Levothyroxine Sodium (Synthroid -) 25 mcg PO DAILY@0700 [facility] Last Admin: 02/18/18 06:21 Dose: 25 mcg Metoprolol Succinate (Toprol Xl -) 100 mg PO DAILY [facility] Last Admin: 02/18/18 09:37 Dose: 100 mg Multivitamins/Minerals/Vitamin C (Tab-A-Vit -) 1 tab PO DAILY [facility] Last Admin: 02/18/18 09:36 Dose: 1 tab Ondansetron HCl (Zofran Injection) 8 mg IVPB Q8H PRN PRN Reason: NAUSEA Last Admin: 02/14/18 23:00 Dose: 8 mg Ranitidine HCl (Zantac -) 150 mg PO DAILY [facility] Last Admin: 02/18/18 09:37 Dose: 150 mg Sodium Chloride ([place] Nasal [place] -) 2 spray NS BID [facility] 88 year old woman with PMhx of CKD stage 4 (baseline Cr 2.7), DM, Hypertension, HLD, Breast Ca, Depression who presented with chest pain and pressure and admitted for r/o ACS. 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
[2018-02-18] MEDS: ATORVASTATIN CA 40 MG TABLET (FP) PO SCH (23:04)
[2018-02-18] MEDS: SODIUM CHLORIDE NASAL SPRAY 44 ML BOTTLE NS SCH (23:26)
[2018-02-19] MEDS: LEVOTHYROXINE NA 25 MCG TABLET (FP) PO SCH (07:04)
[2018-02-19] MEDS: INSULIN SLIDING SCALE (NOVOLOG) 1 VIAL SQ SCH ×3 (07:04→17:47)
[2018-02-19 07:40] LABS: BASO % 1.5 % (0-2.0); EOS % 5.4 % (0-4.5); HEMATOCRIT 31.8 % (32.4-45.2); HEMOGLOBIN 10.6 GM/dL (10.7-15.3); LYMPH % 24.8 % (8-40); MCH 32.4 pg (25.7-33.7); MCHC 33.3 g/dl (32.0-36.0); MEAN CELL VOLUME 97.3 fl (80-96); MEAN PLT VOLUME 10.6 fl (7.5-11.1); NEUT % 59.3 % (42.8-82.8); PLATELET COUNT 145 K/MM3 (134-434); RBC 3.27 M/mm3 (3.60-5.2); RDW 13.5 % (11.6-15.6); WHITE BLOOD COUNT 5.9 K/mm3 (4.0-10.0)
[2018-02-19 08:09] LABS: ANION GAP 7 (8-16); BLOOD UREA NITROGEN 63 mg/dL (7-18); CALCIUM 8.7 mg/dL (8.5-10.1); CHLORIDE 108 mmol/L (98-107); CO2 30 mmol/L (21-32); CREATININE 3.3 mg/dL (0.55-1.02); GLUCOSE,RANDOM 85 mg/dL (74-106); MAGNESIUM 1.9 mg/dL (1.8-2.4); PHOSPHOROUS 4.4 mg/dL (2.5-4.9); POTASSIUM 3.9 mmol/L (3.5-5.1); SODIUM 145 mmol/L (136-145)
--- NOTE | 2018-02-19 10:25 | PN ---
Progress Note (short form) - Note Progress Note: Dr. Sweet to document today. On O2 but ? will ailin at home. Constipated: Rx written.
[2018-02-19] MEDS: CALCIUM 500MG/VIT-D 200 UNITS COMBO TABLET (FP) PO SCH (10:29)
[2018-02-19] MEDS: HEPARIN NA (PORCINE) 5,000 UNITS/ML 1ML VIAL SQ SCH ×2 (10:29→22:07)
[2018-02-19] MEDS: RANITIDINE HCL 150 MG TABLET (FP) PO SCH (10:30)
[2018-02-19] MEDS: MULTIVITAMINS (DAILY MVI) TABLET (FP) PO SCH (10:30)
[2018-02-19] MEDS: amLODIPine BESYLATE 10 MG TABLET (FP) PO SCH (10:30)
[2018-02-19] MEDS: FUROSEMIDE 20 MG TABLET (FP) PO SCH (10:30)
[2018-02-19] MEDS: CHOLECALCIFEROL (VITAMIN D3) 1,000 UNIT TABLET (FP) PO SCH (10:30)
[2018-02-19] MEDS: SODIUM CHLORIDE NASAL SPRAY 44 ML BOTTLE NS SCH ×2 (10:31→22:07)
[2018-02-19] MEDS: ASPIRIN 81 MG CHEWABLE TABLETS PO SCH (10:31)
[2018-02-19 11:50] VITALS: BMI 34.5
[2018-02-19] MEDS ORDERED: GLYCERIN 1 RECTAL SUPPOSITORY, ADULT RC ONE (12:00)
--- NOTE | 2018-02-19 12:24 | CON.PULM ---
Consult Consult Specialty:: PULMONARY Referred by:: Dr. Sweet Reason for Consultation:: hypoxia - History of Present Illness Chief Complaint: chest pain History of Present Illness: 88yo female with h/o HTN, DM, hyperlipidemia, LV diastolic dysfunction, paroxysmal atrial fibrillation, CAD who was admitted with chest pain and cough. Cough nonproductive without wheezing. No fevers, chills or sweats. Found to have congestion and bilateral pleural effusions on CXR and started on diuresis with improvement in symptoms. She denies any pulmonary history and is a never smoker. 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 - History Source History Provided By: Patient, Medical Record Limitations to Obtaining History: No Limitations - Past Medical History Cardio/Vascular: Yes: CAD (s/p stents around 20 years ago ), CHF, HTN, Hyperlipdemia Renal/: Yes: Other (1 working kidney due to ? renal atrophy ) ...: No Endocrine: Yes: Diabetes Mellitus - Past Surgical History Past Surgical History: Yes: Mastectomy (partial R sided ) - Alcohol/Substance Use Hx Alcohol Use: No History of Substance Use: reports: None - Smoking History Smoking history: Never smoked Have you smoked in the past 12 months: No Aproximately how many cigarettes per day: 0 - Social History Usual Living Arrangement: Alone ADL: Independent Home Medications - Allergies Allergies/Adverse Reactions: Allergies Allergy/AdvReac Type Severity Reaction Status Date / Time metronidazole [From Flagyl] Allergy Severe Swelling Verified 02/13/18 17:02 - Home Medications Home Medications: Ambulatory Orders Allopurinol [Zyloprim -] 200 mg PO DAILY 03/19/14 Amlodipine Besylate [Norvasc -] 10 mg PO DAILY 03/19/14 Aspirin [ASA -] 325 mg PO DAILY 03/19/14 Atorvastatin Ca [Lipitor] 40 mg PO HS 03/19/14 Cholecalciferol (Vitamin D3) [Vitamin D3] 1,000 unit PO DAILY 03/19/14 Furosemide [Lasix -] 20 mg PO DAILY 03/19/14 Metoprolol Succinate [Toprol XL -] 100 mg PO DAILY 03/19/14 Multivitamins [Multivit ([facility] Formulary)] 1 tab PO DAILY 03/19/14 Guar Gum [Benefiber] 1 each PO BID #0 packet 05/21/14 Calcium Carbonate/Vitamin D3 [Calcium 500-Vit D3 200 Caplet] 1 each PO DAILY 06/23 Levothyroxine [Synthroid -] 25 mcg PO DAILY 02/13/18 Furosemide [Lasix -] 20 mg PO DAILY tablet 02/17/18 Family Disease History - Family Disease History Other Family History: no known family histroy of any GI malignancies- all of her family lives in [place] and does not know Review of Systems - Review of Systems Constitutional: denies: Chills, Fever Eyes: denies: Recent Change in Vision HENT: denies: Nasal Congestion, Throat Pain Neck: denies: Stiffness, Tenderness Cardiovascular: reports: Chest Pain. denies: Edema, Palpitations, Shortness of Breath Respiratory: reports: Cough. denies: Hemoptysis, Wheezing Gastrointestinal: denies: Abdominal Pain, Nausea, Vomiting Genitourinary: denies: Dysuria, Hematuria Neurological: denies: Dizziness, Headache Endocrine: denies: Unexplained Weight Loss Physical Exam Vital Sings: Vital Signs Temperature 97.2 F L 02/19/18 06:00 Pulse Rate 58 L 02/19/18 06:00 Respiratory Rate 18 02/19/18 06:00 Blood Pressure 124/60 02/19/18 06:00 O2 Sat by Pulse Oximetry (%) 98 02/18/18 21:00 Constitutional: Yes: Calm Eyes: Yes: Conjunctiva Clear, EOM Intact HENT: Yes: Atraumatic, Normocephalic Neck: Yes: Supple, Trachea Midline Cardiovascular: Yes: Regular Rate and Rhythm Respiratory: Yes: Diminished (decreased breath sounds right base), Rales (right) ...Clubbing: No Gastrointestinal: Yes: Normal Bowel Sounds, Soft. No: Tenderness Edema: No Neurological: Yes: Alert, Oriented Labs: CBC, BMP 02/19/18 06:50 02/19/18 06:50 ABG Results ABG pH 7.40 (7.35-7.45) 02/17/18 11:24 ABG pCO2 at Pt Temp 41.3 mmHg (35-45) 02/17/18 11:24 ABG pO2 at Pt Temp 55.0 mmHg (68-100) L D 02/17/18 11:24 ABG HCO3 24.5 meq/L (22-26) 02/17/18 11:24 ABG O2 Sat (Measured) 88.9 % (90-98.9) L 02/17/18 11:24 ABG O2 Content 12.8 % vol (15-22) L 02/17/18 11:24 ABG Base Excess No Result Required. 02/17/18 11:24 Imaging - Results Chest X-ray: Report Reviewed, Image Reviewed (pulmonary vascular congestion, right >left effusion) Problem List - Problems (1) Acute on chronic diastolic heart failure Code(s): I50.33 - ACUTE ON CHRONIC DIASTOLIC (CONGESTIVE) HEART FAILURE (2) Pleural effusion Code(s): J90 - PLEURAL EFFUSION, NOT ELSEWHERE CLASSIFIED (3) Aortic stenosis, moderate Code(s): I35.0 - NONRHEUMATIC AORTIC (VALVE) STENOSIS (4) Diabetes mellitus Code(s): E11.9 - TYPE 2 DIABETES MELLITUS WITHOUT COMPLICATIONS Qualifiers: Diabetes mellitus type: type 2 Diabetes mellitus complication status: with kidney complications Diabetes mellitus complication detail: with chronic kidney disease (5) HLD (hyperlipidemia) Code(s): E78.5 - HYPERLIPIDEMIA, UNSPECIFIED Qualifiers: Hyperlipidemia type: pure hypercholesterolemia Qualified Code(s): E78.00 - Pure hypercholesterolemia, unspecified; E78.0 - Pure hypercholesterolemia (6) HTN (hypertension) Code(s): I10 - ESSENTIAL (PRIMARY) HYPERTENSION Qualifiers: Hypertension type: essential hypertension Qualified Code(s): I10 - Essential (primary) hypertension (7) CKD (chronic kidney disease) Code(s): N18.9 - CHRONIC KIDNEY DISEASE, UNSPECIFIED (8) Hypothyroidism Code(s): E03.9 - HYPOTHYROIDISM, UNSPECIFIED Qualifiers: Hypothyroidism type: unspecified Qualified Code(s): E03.9 - Hypothyroidism , unspecified Assessment/Plan Acute on Chronic Diastolic Heart Failure Pleural Effusion due to above Paroxysmal Atrial Fibrillation CAD HTN Hyperlipidemia DM - continue lasix - monitor urine output, creatinine - will order CXR in AM - pt currently denies shortness of breath and feels better with diuresis, can defer thoracentesis at this time - took pt off O2 and pt desaturated to 94% without symptoms, can continue to monitor at this time - DVT prophylaxis Thank you for this consult Roe Bacon MD
--- NOTE | 2018-02-19 15:00 | PN ---
Progress Note (short form) - Note Progress Note: Renal follow up for CKD pt seen and examined at the bedside awake and alert no complaints on O2 via NC Vital Signs Temperature 98.6 F 02/19/18 12:52 Pulse Rate 68 02/19/18 12:52 Respiratory Rate 16 02/19/18 12:52 Blood Pressure 149/79 02/19/18 12:52 O2 Sat by Pulse Oximetry (%) 98 02/18/18 21:00 Intake & Output 02/16/18 02/17/18 02/18/18 02/19/18 23:59 23:59 23:59 23:59 Intake Total 820 920 650 Output Total 1100 300 Balance 820 -180 350 Weight 77.111 kg 77.564 kg NAD RRR CTA no edema CBC, BMP 02/19/18 06:50 02/19/18 06:50 Current Medications Amlodipine Besylate (Norvasc -) 10 mg PO DAILY [facility] Last Admin: 02/19/18 10:30 Dose: 10 mg Aspirin (Asa -) 81 mg PO DAILY [facility] Last Admin: 02/19/18 10:31 Dose: 81 mg Atorvastatin Calcium (Lipitor -) 40 mg PO HS [facility] Last Admin: 02/18/18 23:04 Dose: 40 mg Calcium Carbonate/Cholecalciferol (Os-Pedro 500+D -) 1 tab PO DAILY [facility] Last Admin: 02/19/18 10:29 Dose: 1 tab Cholecalciferol (Vitamin D3 -) 1,000 unit PO DAILY [facility] Last Admin: 02/19/18 10:30 Dose: 1,000 unit Furosemide (Lasix -) 20 mg PO DAILY [facility] Last Admin: 02/19/18 10:30 Dose: 20 mg Heparin Sodium (Porcine) (Heparin -) 5,000 unit SQ BID [facility] Last Admin: 02/19/18 10:29 Dose: 5,000 unit Insulin Aspart (Novolog Vial Sliding Scale -) 1 vial SQ TIDAC [facility]; Protocol Last Admin: 02/19/18 11:25 Dose: Not Given Levothyroxine Sodium (Synthroid -) 25 mcg PO DAILY@0700 [facility] Last Admin: 02/19/18 07:04 Dose: 25 mcg Metoprolol Succinate (Toprol Xl -) 100 mg PO DAILY [facility] Last Admin: 02/19/18 10:30 Dose: 100 mg Multivitamins/Minerals/Vitamin C (Tab-A-Vit -) 1 tab PO DAILY [facility] Last Admin: 02/19/18 10:30 Dose: 1 tab Ondansetron HCl (Zofran Injection) 8 mg IVPB Q8H PRN PRN Reason: NAUSEA Last Admin: 02/14/18 23:00 Dose: 8 mg Polyethylene Glycol (Miralax (For Daily Use) -) 17 gm PO DAILY [facility] Ranitidine HCl (Zantac -) 150 mg PO DAILY [facility] Last Admin: 02/19/18 10:30 Dose: 150 mg Sodium Chloride ([place] Nasal [place] -) 2 spray NS BID [facility] Last Admin: 02/19/18 10:31 Dose: 2 spray 88 year old woman with PMhx of CKD stage 4 (baseline Cr 2.7), DM, Hypertension, HLD, Breast Ca, Depression who presented with chest pain and pressure and admitted for r/o ACS. 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
--- NOTE | 2018-02-19 15:14 | PN ---
Progress Note, Physician Chief Complaint: Ms Lua says she is doing well. No cp, sob, or n/v. Eager to go home. - Current Medication List Current Medications: Active Medications Amlodipine Besylate (Norvasc -) 10 mg PO DAILY [facility] Last Admin: 02/19/18 10:30 Dose: 10 mg Aspirin (Asa -) 81 mg PO DAILY [facility] Last Admin: 02/19/18 10:31 Dose: 81 mg Atorvastatin Calcium (Lipitor -) 40 mg PO HS [facility] Last Admin: 02/18/18 23:04 Dose: 40 mg Calcium Carbonate/Cholecalciferol (Os-[place] 500+D -) 1 tab PO DAILY [facility] Last Admin: 02/19/18 10:29 Dose: 1 tab Cholecalciferol (Vitamin D3 -) 1,000 unit PO DAILY [facility] Last Admin: 02/19/18 10:30 Dose: 1,000 unit Heparin Sodium (Porcine) (Heparin -) 5,000 unit SQ BID [facility] Last Admin: 02/19/18 10:29 Dose: 5,000 unit Insulin Aspart (Novolog Vial Sliding Scale -) 1 vial SQ TIDAC [facility]; Protocol Last Admin: 02/19/18 11:25 Dose: Not Given Levothyroxine Sodium (Synthroid -) 25 mcg PO DAILY@0700 [facility] Last Admin: 02/19/18 07:04 Dose: 25 mcg Metoprolol Succinate (Toprol Xl -) 100 mg PO DAILY [facility] Last Admin: 02/19/18 10:30 Dose: 100 mg Multivitamins/Minerals/Vitamin C (Tab-A-Vit -) 1 tab PO DAILY [facility] Last Admin: 02/19/18 10:30 Dose: 1 tab Ondansetron HCl (Zofran Injection) 8 mg IVPB Q8H PRN PRN Reason: NAUSEA Last Admin: 02/14/18 23:00 Dose: 8 mg Polyethylene Glycol (Miralax (For Daily Use) -) 17 gm PO DAILY [facility] Ranitidine HCl (Zantac -) 150 mg PO DAILY [facility] Last Admin: 02/19/18 10:30 Dose: 150 mg Sodium Chloride ([place] Nasal [place] -) 2 spray NS BID [facility] Last Admin: 02/19/18 10:31 Dose: 2 spray Torsemide (Demadex -) 40 mg PO DAILY [facility] - Objective Vital Signs: Vital Signs Temperature 37.0 C 02/19/18 12:52 Pulse Rate 68 02/19/18 12:52 Respiratory Rate 16 02/19/18 12:52 Blood Pressure 149/79 02/19/18 12:52 O2 Sat by Pulse Oximetry (%) 98 02/18/18 21:00 Constitutional: Yes: No Distress, Calm, Obese Cardiovascular: Yes: Regular Rate and Rhythm. No: Gallop, Murmur, Rub Respiratory: Yes: Regular, On Nasal O2, Rhonchi (bibasilar). No: CTA Bilaterally, Rales, Wheezes Extremities: Yes: WNL Edema: No Labs: CBC, BMP 02/19/18 06:50 02/19/18 06:50 Problem List - Problems (1) Chest pressure Code(s): R07.89 - OTHER CHEST PAIN (2) Acute on chronic diastolic heart failure Code(s): I50.33 - ACUTE ON CHRONIC DIASTOLIC (CONGESTIVE) HEART FAILURE (3) [id number] kidney injury Code(s): N17.9 - ACUTE KIDNEY FAILURE, UNSPECIFIED; N18.9 - CHRONIC KIDNEY DISEASE, UNSPECIFIED Qualifiers: Acute renal failure type: unspecified (4) Aortic stenosis, moderate Code(s): I35.0 - NONRHEUMATIC AORTIC (VALVE) STENOSIS (5) Diabetes mellitus Code(s): E11.9 - TYPE 2 DIABETES MELLITUS WITHOUT COMPLICATIONS Qualifiers: Diabetes mellitus type: type 2 Diabetes mellitus complication status: with kidney complications Diabetes mellitus complication detail: with chronic kidney disease (6) HLD (hyperlipidemia) Code(s): E78.5 - HYPERLIPIDEMIA, UNSPECIFIED Qualifiers: Hyperlipidemia type: pure hypercholesterolemia Qualified Code(s): E78.00 - Pure hypercholesterolemia, unspecified; E78.0 - Pure hypercholesterolemia (7) HTN (hypertension) Code(s): I10 - ESSENTIAL (PRIMARY) HYPERTENSION Qualifiers: Hypertension type: essential hypertension Qualified Code(s): I10 - Essential (primary) hypertension (8) Hypothyroidism Code(s): E03.9 - HYPOTHYROIDISM, UNSPECIFIED Qualifiers: Hypothyroidism type: unspecified Qualified Code(s): E03.9 - Hypothyroidism , unspecified Assessment/Plan (1) Chest pressure Assessment/Plan: -not cardiac in nature -resolved Code(s): R07.89 - OTHER CHEST PAIN (2) Acute on chronic diastolic heart failure Assessment/Plan: -patient much improved -placed on torsemide -check pre and post tomorrow to see if needs home oxygen Code(s): I50.33 - ACUTE ON CHRONIC DIASTOLIC (CONGESTIVE) HEART FAILURE (3) [id number]-crgfnup kidney injury Assessment/Plan -stable -nephrology following -placed on torsemide Code(s): N17.9 - ACUTE KIDNEY FAILURE, UNSPECIFIED; N18.9 - CHRONIC KIDNEY DISEASE, UNSPECIFIED Qualifiers: Acute renal failure type: unspecified (4) Aortic stenosis, moderate Assessment/Plan: -no murmur heard during my exam Code(s): I35.0 - NONRHEUMATIC AORTIC (VALVE) STENOSIS (5) Diabetes mellitus Assessment/Plan: -low sodium diabetic diet -continue SSI -on glipizide as an outpatient Code(s): E11.9 - TYPE 2 DIABETES MELLITUS WITHOUT COMPLICATIONS Qualifiers: Diabetes mellitus type: type 2 Diabetes mellitus complication status: with kidney complications Diabetes mellitus complication detail: with chronic kidney disease (6) HLD (hyperlipidemia) Assessment/Plan: -continue statin Code(s): E78.5 - HYPERLIPIDEMIA, UNSPECIFIED Qualifiers: Hyperlipidemia type: pure hypercholesterolemia Qualified Code(s): E78.00 - Pure hypercholesterolemia, unspecified; E78.0 - Pure hypercholesterolemia (7) HTN (hypertension) Assessment/Plan: -controlled -continue toprol xl and norvasc -monitor Code(s): I10 - ESSENTIAL (PRIMARY) HYPERTENSION Qualifiers: Hypertension type: essential hypertension Qualified Code(s): I10 - Essential (primary) hypertension (8) Hypothyroidism Assessment/Plan: -continue synthroid Code(s): E03.9 - HYPOTHYROIDISM, UNSPECIFIED Qualifiers: Hypothyroidism type: unspecified Qualified Code(s): E03.9 - Hypothyroidism , unspecified
[2018-02-19] MEDS ORDERED: PT OWN MED DRAWER 7, Y5N ONE (22:01)
[2018-02-19] MEDS: ATORVASTATIN CA 40 MG TABLET (FP) PO SCH (22:07)
[2018-02-20] MEDS: INSULIN SLIDING SCALE (NOVOLOG) 1 VIAL SQ SCH ×3 (06:32→17:25)
[2018-02-20] MEDS: LEVOTHYROXINE NA 25 MCG TABLET (FP) PO SCH (06:33)
[2018-02-20 08:12] LABS: EOS % 6.4 % (0-4.5); HEMATOCRIT 30.6 % (32.4-45.2); HEMOGLOBIN 10.2 GM/dL (10.7-15.3); LYMPH % 26.3 % (8-40); MCH 32.3 pg (25.7-33.7); MCHC 33.3 g/dl (32.0-36.0); MEAN CELL VOLUME 97.1 fl (80-96); MEAN PLT VOLUME 10.6 fl (7.5-11.1); MONO % 8.9 % (3.8-10.2); NEUT % 57.4 % (42.8-82.8); PLATELET COUNT 154 K/MM3 (134-434); RBC 3.15 M/mm3 (3.60-5.2); RDW 13.8 % (11.6-15.6); WHITE BLOOD COUNT 7.4 K/mm3 (4.0-10.0)
--- NOTE | 2018-02-20 08:18 | PN ---
Progress Note (short form) - Note Progress Note: Dr. Sweet to document today. Feels better. Now on torsemide; seen by Pulmonary MD; CXR this AM.
[2018-02-20 08:21] LABS: ANION GAP 6 (8-16); BLOOD UREA NITROGEN 62 mg/dL (7-18); CALCIUM 8.5 mg/dL (8.5-10.1); CHLORIDE 106 mmol/L (98-107); CO2 31 mmol/L (21-32); CREATININE 3.3 mg/dL (0.55-1.02); GLUCOSE,RANDOM 88 mg/dL (74-106); PHOSPHOROUS 4.1 mg/dL (2.5-4.9); SODIUM 143 mmol/L (136-145)
[2018-02-20] MEDS ORDERED: PT OWN MED DRAWER 7, Y5N ONE (10:19)
[2018-02-20] MEDS: RANITIDINE HCL 150 MG TABLET (FP) PO SCH (10:22)
[2018-02-20] MEDS: CALCIUM 500MG/VIT-D 200 UNITS COMBO TABLET (FP) PO SCH (10:22)
[2018-02-20] MEDS: amLODIPine BESYLATE 10 MG TABLET (FP) PO SCH (10:22)
[2018-02-20] MEDS: CHOLECALCIFEROL (VITAMIN D3) 1,000 UNIT TABLET (FP) PO SCH (10:22)
[2018-02-20] MEDS: ASPIRIN 81 MG CHEWABLE TABLETS PO SCH (10:22)
[2018-02-20] MEDS: MULTIVITAMINS (DAILY MVI) TABLET (FP) PO SCH (10:22)
[2018-02-20] MEDS: POLYETHYLENE GLYCOL 3350 119 GM BTL PO SCH (10:23)
[2018-02-20] MEDS: TORSEMIDE 20 MG TABLET (FP) PO SCH (10:23)
[2018-02-20] MEDS: HEPARIN NA (PORCINE) 5,000 UNITS/ML 1ML VIAL SQ SCH ×2 (10:23→21:50)
[2018-02-20] MEDS: SODIUM CHLORIDE NASAL SPRAY 44 ML BOTTLE NS SCH ×2 (10:25→21:50)
--- NOTE | 2018-02-20 12:25 | PN ---
Progress Note, Physician History of Present Illness: No further chest pain, dyspnea and orthopnea. Eating lunch sitting up in bed. - Current Medication List Current Medications: Active Medications Amlodipine Besylate (Norvasc -) 10 mg PO DAILY [facility] Last Admin: 02/20/18 10:22 Dose: 10 mg Aspirin (Asa -) 81 mg PO DAILY [facility] Last Admin: 02/20/18 10:22 Dose: 81 mg Atorvastatin Calcium (Lipitor -) 40 mg PO HS [facility] Last Admin: 02/19/18 22:07 Dose: 40 mg Calcium Carbonate/Cholecalciferol (Os-Pedro 500+D -) 1 tab PO DAILY [facility] Last Admin: 02/20/18 10:22 Dose: 1 tab Cholecalciferol (Vitamin D3 -) 1,000 unit PO DAILY [facility] Last Admin: 02/20/18 10:22 Dose: 1,000 unit Heparin Sodium (Porcine) (Heparin -) 5,000 unit SQ BID [facility] Last Admin: 02/20/18 10:23 Dose: 5,000 unit Insulin Aspart (Novolog Vial Sliding Scale -) 1 vial SQ TIDAC [facility]; Protocol Last Admin: 02/20/18 10:41 Dose: Not Given Levothyroxine Sodium (Synthroid -) 25 mcg PO DAILY@0700 [facility] Last Admin: 02/20/18 06:33 Dose: 25 mcg Metoprolol Succinate (Toprol Xl -) 100 mg PO DAILY [facility] Last Admin: 02/20/18 10:22 Dose: 100 mg Multivitamins/Minerals/Vitamin C (Tab-A-Vit -) 1 tab PO DAILY [facility] Last Admin: 02/20/18 10:22 Dose: 1 tab Ondansetron HCl (Zofran Injection) 8 mg IVPB Q8H PRN PRN Reason: NAUSEA Last Admin: 02/14/18 23:00 Dose: 8 mg Polyethylene Glycol (Miralax (For Daily Use) -) 17 gm PO DAILY [facility] Last Admin: 02/20/18 10:23 Dose: 17 gm Ranitidine HCl (Zantac -) 150 mg PO DAILY [facility] Last Admin: 02/20/18 10:22 Dose: 150 mg Sodium Chloride ([place] Nasal [place] -) 2 spray NS BID [facility] Last Admin: 02/20/18 10:25 Dose: 2 spray Torsemide (Demadex -) 40 mg PO DAILY [facility] Last Admin: 02/20/18 10:23 Dose: 40 mg - Objective Vital Signs: Vital Signs Temperature 98.1 F 02/20/18 05:00 Pulse Rate 60 02/20/18 08:30 Respiratory Rate 20 02/20/18 08:30 Blood Pressure 148/66 02/20/18 08:30 O2 Sat by Pulse Oximetry (%) 98 02/19/18 21:00 Constitutional: Yes: No Distress, Calm, Thin Neck: Yes: Supple Cardiovascular: Yes: Regular Rate and Rhythm Respiratory: Yes: Regular, Diminished Gastrointestinal: Yes: Normal Bowel Sounds, Soft Edema: No Labs: CBC, BMP 02/20/18 07:05 02/20/18 07:05 Problem List - Problems (1) Hypothyroidism Code(s): E03.9 - HYPOTHYROIDISM, UNSPECIFIED Qualifiers: Qualified Code(s): E03.9 - Hypothyroidism, unspecified (2) [id number] kidney injury Code(s): N17.9 - ACUTE KIDNEY FAILURE, UNSPECIFIED; N18.9 - CHRONIC KIDNEY DISEASE, UNSPECIFIED (3) Diabetes mellitus Code(s): E11.9 - TYPE 2 DIABETES MELLITUS WITHOUT COMPLICATIONS (4) HLD (hyperlipidemia) Code(s): E78.5 - HYPERLIPIDEMIA, UNSPECIFIED Qualifiers: Qualified Code(s): E78.00 - Pure hypercholesterolemia, unspecified; E78.0 - Pure hypercholesterolemia (5) HTN (hypertension) Code(s): I10 - ESSENTIAL (PRIMARY) HYPERTENSION Qualifiers: Qualified Code(s): I10 - Essential (primary) hypertension (6) Acute on chronic systolic and diastolic heart failure, NYHA class 3 Code(s): I50.43 - ACUTE ON CHRONIC COMBINED SYSTOLIC AND DIASTOLIC HRT FAIL Assessment/Plan Lexiscan MPI: 05/10/2016 Small mild anterior and inferior ischemia, LVEF 65% Echo: 06/25/2015 conc LVH, with normal LV systolic function mod LOUISE 1.1 cm^2 , mild TR, MR, AR Echocardiogram: 02/15/2018 Moderate decreased LV fxn, mild LAE, mild-mod MR, AR , mod TR, aortic sclerosis 1. Acute on chronic diastolic/systolic failure with pleural effusion improved 2. 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 HTN/HCVD 4. Hyperlipidemia 5. Type 2 DM 6. Hypothyroidism 7. CAD, angina pectoris 8. Hyperuricemia 9. Hypernatremia improved P: 1. Demadex 40 qd with monitor renal recovery and electrolytes 2. Hold Hyzaar pending given low eGFR 3. Continue Norvasc 10 qd, ASA 81 qd, Lipitor 40 qhs, Toprol XL 100qd 4. DVT and GI prophylaxis 5. D/c planning
--- NOTE | 2018-02-20 12:26 | PN ---
Progress Note, Physician Chief Complaint: Ms Lua says she is feeling very lightheaded and unsteady today. Denies cp, sob, n/v. - Current Medication List Current Medications: Active Medications Amlodipine Besylate (Norvasc -) 10 mg PO DAILY [facility] Last Admin: 02/20/18 10:22 Dose: 10 mg Aspirin (Asa -) 81 mg PO DAILY [facility] Last Admin: 02/20/18 10:22 Dose: 81 mg Atorvastatin Calcium (Lipitor -) 40 mg PO HS [facility] Last Admin: 02/19/18 22:07 Dose: 40 mg Calcium Carbonate/Cholecalciferol (Os-Pedro 500+D -) 1 tab PO DAILY [facility] Last Admin: 02/20/18 10:22 Dose: 1 tab Cholecalciferol (Vitamin D3 -) 1,000 unit PO DAILY [facility] Last Admin: 02/20/18 10:22 Dose: 1,000 unit Heparin Sodium (Porcine) (Heparin -) 5,000 unit SQ BID [facility] Last Admin: 02/20/18 10:23 Dose: 5,000 unit Insulin Aspart (Novolog Vial Sliding Scale -) 1 vial SQ TIDAC [facility]; Protocol Last Admin: 02/20/18 10:41 Dose: Not Given Levothyroxine Sodium (Synthroid -) 25 mcg PO DAILY@0700 [facility] Last Admin: 02/20/18 06:33 Dose: 25 mcg Metoprolol Succinate (Toprol Xl -) 100 mg PO DAILY [facility] Last Admin: 02/20/18 10:22 Dose: 100 mg Multivitamins/Minerals/Vitamin C (Tab-A-Vit -) 1 tab PO DAILY [facility] Last Admin: 02/20/18 10:22 Dose: 1 tab Ondansetron HCl (Zofran Injection) 8 mg IVPB Q8H PRN PRN Reason: NAUSEA Last Admin: 02/14/18 23:00 Dose: 8 mg Polyethylene Glycol (Miralax (For Daily Use) -) 17 gm PO DAILY [facility] Last Admin: 02/20/18 10:23 Dose: 17 gm Ranitidine HCl (Zantac -) 150 mg PO DAILY [facility] Last Admin: 02/20/18 10:22 Dose: 150 mg Sodium Chloride ([place] Nasal [place] -) 2 spray NS BID [facility] Last Admin: 02/20/18 10:25 Dose: 2 spray Torsemide (Demadex -) 40 mg PO DAILY [facility] Last Admin: 02/20/18 10:23 Dose: 40 mg - Objective Vital Signs: Vital Signs Temperature 36.7 C 02/20/18 05:00 Pulse Rate 60 02/20/18 08:30 Respiratory Rate 20 02/20/18 08:30 Blood Pressure 148/66 02/20/18 08:30 O2 Sat by Pulse Oximetry (%) 98 02/19/18 21:00 Constitutional: Yes: No Distress, Calm, Obese Cardiovascular: Yes: Regular Rate and Rhythm. No: Gallop, Murmur, Rub Respiratory: Yes: Regular, Rhonchi. No: CTA Bilaterally, On Nasal O2, Rales, Wheezes Gastrointestinal: Yes: Normal Bowel Sounds, Soft. No: Distention, Tenderness Extremities: Yes: WNL Edema: No Labs: CBC, BMP 02/20/18 07:05 02/20/18 07:05 Problem List - Problems (1) Chest pressure Code(s): R07.89 - OTHER CHEST PAIN (2) Acute on chronic diastolic heart failure Code(s): I50.33 - ACUTE ON CHRONIC DIASTOLIC (CONGESTIVE) HEART FAILURE (3) Jdwgu-tu-[id number] kidney injury Code(s): N17.9 - ACUTE KIDNEY FAILURE, UNSPECIFIED; N18.9 - CHRONIC KIDNEY DISEASE, UNSPECIFIED Qualifiers: Acute renal failure type: unspecified (4) Aortic stenosis, moderate Code(s): I35.0 - NONRHEUMATIC AORTIC (VALVE) STENOSIS (5) Diabetes mellitus Code(s): E11.9 - TYPE 2 DIABETES MELLITUS WITHOUT COMPLICATIONS Qualifiers: Diabetes mellitus type: type 2 Diabetes mellitus complication status: with kidney complications Diabetes mellitus complication detail: with chronic kidney disease (6) HLD (hyperlipidemia) Code(s): E78.5 - HYPERLIPIDEMIA, UNSPECIFIED Qualifiers: Hyperlipidemia type: pure hypercholesterolemia Qualified Code(s): E78.00 - Pure hypercholesterolemia, unspecified; E78.0 - Pure hypercholesterolemia (7) HTN (hypertension) Code(s): I10 - ESSENTIAL (PRIMARY) HYPERTENSION Qualifiers: Hypertension type: essential hypertension Qualified Code(s): I10 - Essential (primary) hypertension (8) Hypothyroidism Code(s): E03.9 - HYPOTHYROIDISM, UNSPECIFIED Qualifiers: Hypothyroidism type: unspecified Qualified Code(s): E03.9 - Hypothyroidism , unspecified Assessment/Plan (1) Chest pressure Assessment/Plan: -not cardiac in nature -resolved Code(s): R07.89 - OTHER CHEST PAIN (2) Acute on chronic diastolic heart failure Assessment/Plan: -patient much improved -placed on torsemide -check pre and post today, especially since she has lightheadedness and may be secondary to hypoxia -also check orthostatics, may be secondary to torsemide Code(s): I50.33 - ACUTE ON CHRONIC DIASTOLIC (CONGESTIVE) HEART FAILURE (3) Lrfnk-ln-jtzryoh kidney injury Assessment/Plan -stable -nephrology following -placed on torsemide Code(s): N17.9 - ACUTE KIDNEY FAILURE, UNSPECIFIED; N18.9 - CHRONIC KIDNEY DISEASE, UNSPECIFIED Qualifiers: Acute renal failure type: unspecified (4) Aortic stenosis, moderate Assessment/Plan: -no murmur heard during my exam Code(s): I35.0 - NONRHEUMATIC AORTIC (VALVE) STENOSIS (5) Diabetes mellitus Assessment/Plan: -low sodium diabetic diet -continue SSI -on glipizide as an outpatient Code(s): E11.9 - TYPE 2 DIABETES MELLITUS WITHOUT COMPLICATIONS Qualifiers: Diabetes mellitus type: type 2 Diabetes mellitus complication status: with kidney complications Diabetes mellitus complication detail: with chronic kidney disease (6) HLD (hyperlipidemia) Assessment/Plan: -continue statin Code(s): E78.5 - HYPERLIPIDEMIA, UNSPECIFIED Qualifiers: Hyperlipidemia type: pure hypercholesterolemia Qualified Code(s): E78.00 - Pure hypercholesterolemia, unspecified; E78.0 - Pure hypercholesterolemia (7) HTN (hypertension) Assessment/Plan: -controlled -continue toprol xl and norvasc -monitor Code(s): I10 - ESSENTIAL (PRIMARY) HYPERTENSION Qualifiers: Hypertension type: essential hypertension Qualified Code(s): I10 - Essential (primary) hypertension (8) Hypothyroidism Assessment/Plan: -continue synthroid Code(s): E03.9 - HYPOTHYROIDISM, UNSPECIFIED Qualifiers: Hypothyroidism type: unspecified Qualified Code(s): E03.9 - Hypothyroidism , unspecified
--- NOTE | 2018-02-20 12:33 | PN ---
Progress Note, Physician History of Present Illness: PULMONARY ALERT,NAD,-CP,-SOB - Current Medication List Current Medications: Active Medications Amlodipine Besylate (Norvasc -) 10 mg PO DAILY [facility] Last Admin: 02/20/18 10:22 Dose: 10 mg Aspirin (Asa -) 81 mg PO DAILY [facility] Last Admin: 02/20/18 10:22 Dose: 81 mg Atorvastatin Calcium (Lipitor -) 40 mg PO HS [facility] Last Admin: 02/19/18 22:07 Dose: 40 mg Calcium Carbonate/Cholecalciferol (Os-Pedro 500+D -) 1 tab PO DAILY [facility] Last Admin: 02/20/18 10:22 Dose: 1 tab Cholecalciferol (Vitamin D3 -) 1,000 unit PO DAILY [facility] Last Admin: 02/20/18 10:22 Dose: 1,000 unit Heparin Sodium (Porcine) (Heparin -) 5,000 unit SQ BID [facility] Last Admin: 02/20/18 10:23 Dose: 5,000 unit Insulin Aspart (Novolog Vial Sliding Scale -) 1 vial SQ TIDAC [facility]; Protocol Last Admin: 02/20/18 10:41 Dose: Not Given Levothyroxine Sodium (Synthroid -) 25 mcg PO DAILY@0700 [facility] Last Admin: 02/20/18 06:33 Dose: 25 mcg Metoprolol Succinate (Toprol Xl -) 100 mg PO DAILY [facility] Last Admin: 02/20/18 10:22 Dose: 100 mg Multivitamins/Minerals/Vitamin C (Tab-A-Vit -) 1 tab PO DAILY [facility] Last Admin: 02/20/18 10:22 Dose: 1 tab Ondansetron HCl (Zofran Injection) 8 mg IVPB Q8H PRN PRN Reason: NAUSEA Last Admin: 02/14/18 23:00 Dose: 8 mg Polyethylene Glycol (Miralax (For Daily Use) -) 17 gm PO DAILY [facility] Last Admin: 02/20/18 10:23 Dose: 17 gm Ranitidine HCl (Zantac -) 150 mg PO DAILY [facility] Last Admin: 02/20/18 10:22 Dose: 150 mg Sodium Chloride ([place] Nasal [place] -) 2 spray NS BID [facility] Last Admin: 02/20/18 10:25 Dose: 2 spray Torsemide (Demadex -) 40 mg PO DAILY [facility] Last Admin: 02/20/18 10:23 Dose: 40 mg - Objective Vital Signs: Vital Signs Temperature 98.1 F 02/20/18 05:00 Pulse Rate 60 02/20/18 08:30 Respiratory Rate 20 02/20/18 08:30 Blood Pressure 148/66 02/20/18 08:30 O2 Sat by Pulse Oximetry (%) 98 02/19/18 21:00 Constitutional: Yes: Well Nourished, No Distress Eyes: Yes: WNL HENT: Yes: WNL Neck: Yes: WNL Cardiovascular: Yes: Regular Rate and Rhythm, S1, S2 Respiratory: Yes: Diminished Gastrointestinal: Yes: Normal Bowel Sounds, Soft Extremities: Yes: WNL Edema: No Labs: CBC, BMP 02/20/18 07:05 02/20/18 07:05 - ....Imaging Chest X-ray: Report Reviewed, Image Reviewed (NO CHANGE) Assessment/Plan rajeshm List - Problems (1) Acute on chronic diastolic heart failure Code(s): I50.33 - ACUTE ON CHRONIC DIASTOLIC (CONGESTIVE) HEART FAILURE (2) Pleural effusion Code(s): J90 - PLEURAL EFFUSION, NOT ELSEWHERE CLASSIFIED (3) Aortic stenosis, moderate Code(s): I35.0 - NONRHEUMATIC AORTIC (VALVE) STENOSIS (4) Diabetes mellitus Code(s): E11.9 - TYPE 2 DIABETES MELLITUS WITHOUT COMPLICATIONS Qualifiers: Diabetes mellitus type: type 2 Diabetes mellitus complication status: with kidney complications Diabetes mellitus complication detail: with chronic kidney disease (5) HLD (hyperlipidemia) Code(s): E78.5 - HYPERLIPIDEMIA, UNSPECIFIED Qualifiers: Hyperlipidemia type: pure hypercholesterolemia Qualified Code(s): E78.00 - Pure hypercholesterolemia, unspecified; E78.0 - Pure hypercholesterolemia (6) HTN (hypertension) Code(s): I10 - ESSENTIAL (PRIMARY) HYPERTENSION Qualifiers: Hypertension type: essential hypertension Qualified Code(s): I10 - Essential (primary) hypertension (7) CKD (chronic kidney disease) Code(s): N18.9 - CHRONIC KIDNEY DISEASE, UNSPECIFIED (8) Hypothyroidism Code(s): E03.9 - HYPOTHYROIDISM, UNSPECIFIED Qualifiers: Hypothyroidism type: unspecified Qualified Code(s): E03.9 - Hypothyroidism , unspecified Assessment/Plan Acute on Chronic Diastolic Heart Failure Pleural Effusion due to above Paroxysmal Atrial Fibrillation CAD HTN Hyperlipidemia DM - diuretics - monitor urine output, creatinine - O2 prn - DVT prophylaxis DR MARIANO
[2018-02-20] MEDS: ATORVASTATIN CA 40 MG TABLET (FP) PO SCH (21:50)
[2018-02-21] MEDS: INSULIN SLIDING SCALE (NOVOLOG) 1 VIAL SQ SCH ×2 (06:31→11:17)
[2018-02-21] MEDS: LEVOTHYROXINE NA 25 MCG TABLET (FP) PO SCH (06:32)
[2018-02-21 07:38] LABS: BASO % 1.3 % (0-2.0); EOS % 5.7 % (0-4.5); HEMOGLOBIN 10.2 GM/dL (10.7-15.3); LYMPH % 24.9 % (8-40); MEAN CELL VOLUME 96.9 fl (80-96); MEAN PLT VOLUME 10.6 fl (7.5-11.1); MONO % 9.8 % (3.8-10.2); NEUT % 58.3 % (42.8-82.8); PLATELET COUNT 144 K/MM3 (134-434); RBC 3.09 M/mm3 (3.60-5.2); RDW 13.4 % (11.6-15.6); WHITE BLOOD COUNT 6.4 K/mm3 (4.0-10.0)
[2018-02-21 08:24] LABS: ANION GAP 7 (8-16); BLOOD UREA NITROGEN 63 mg/dL (7-18); CALCIUM 8.4 mg/dL (8.5-10.1); CHLORIDE 106 mmol/L (98-107); CO2 31 mmol/L (21-32); CREATININE 3.4 mg/dL (0.55-1.02); GLUCOSE,RANDOM 86 mg/dL (74-106); MAGNESIUM 1.9 mg/dL (1.8-2.4); PHOSPHOROUS 4.2 mg/dL (2.5-4.9); POTASSIUM 3.8 mmol/L (3.5-5.1); SODIUM 144 mmol/L (136-145)
--- NOTE | 2018-02-21 08:41 | PN ---
Progress Note (short form) - Note Progress Note: Dr. Sweet to document today Was dizzy yesterday; Temporary SNF
[2018-02-21] MEDS ORDERED: PT OWN MED DRAWER 7, Y5N ONE (09:42)
[2018-02-21] MEDS: HEPARIN NA (PORCINE) 5,000 UNITS/ML 1ML VIAL SQ SCH (10:12)
[2018-02-21] MEDS: ASPIRIN 81 MG CHEWABLE TABLETS PO SCH (10:12)
[2018-02-21] MEDS: TORSEMIDE 20 MG TABLET (FP) PO SCH (10:13)
[2018-02-21] MEDS: amLODIPine BESYLATE 10 MG TABLET (FP) PO SCH (10:13)
[2018-02-21] MEDS: RANITIDINE HCL 150 MG TABLET (FP) PO SCH (10:13)
[2018-02-21] MEDS: CHOLECALCIFEROL (VITAMIN D3) 1,000 UNIT TABLET (FP) PO SCH (10:13)
[2018-02-21] MEDS: CALCIUM 500MG/VIT-D 200 UNITS COMBO TABLET (FP) PO SCH (10:14)
[2018-02-21] MEDS: POLYETHYLENE GLYCOL 3350 119 GM BTL PO SCH (10:14)
[2018-02-21] MEDS: MULTIVITAMINS (DAILY MVI) TABLET (FP) PO SCH (10:14)
[2018-02-21] MEDS: SODIUM CHLORIDE NASAL SPRAY 44 ML BOTTLE NS SCH (10:14)
--- NOTE | 2018-02-21 11:28 | PN ---
Progress Note, Physician History of Present Illness: No further chest pain, dyspnea and orthopnea. - Current Medication List Current Medications: Active Medications Amlodipine Besylate (Norvasc -) 10 mg PO DAILY [facility] Last Admin: 02/21/18 10:13 Dose: 10 mg Aspirin (Asa -) 81 mg PO DAILY [facility] Last Admin: 02/21/18 10:12 Dose: 81 mg Atorvastatin Calcium (Lipitor -) 40 mg PO HS [facility] Last Admin: 02/20/18 21:50 Dose: 40 mg Calcium Carbonate/Cholecalciferol (Os-Pedro 500+D -) 1 tab PO DAILY [facility] Last Admin: 02/21/18 10:14 Dose: 1 tab Cholecalciferol (Vitamin D3 -) 1,000 unit PO DAILY [facility] Last Admin: 02/21/18 10:13 Dose: 1,000 unit Heparin Sodium (Porcine) (Heparin -) 5,000 unit SQ BID [facility] Last Admin: 02/21/18 10:12 Dose: 5,000 unit Insulin Aspart (Novolog Vial Sliding Scale -) 1 vial SQ TIDAC [facility]; Protocol Last Admin: 02/21/18 11:17 Dose: Not Given Levothyroxine Sodium (Synthroid -) 25 mcg PO DAILY@0700 [facility] Last Admin: 02/21/18 06:32 Dose: 25 mcg Metoprolol Succinate (Toprol Xl -) 100 mg PO DAILY [facility] Last Admin: 02/21/18 10:13 Dose: 100 mg Multivitamins/Minerals/Vitamin C (Tab-A-Vit -) 1 tab PO DAILY [facility] Last Admin: 02/21/18 10:14 Dose: 1 tab Ondansetron HCl (Zofran Injection) 8 mg IVPB Q8H PRN PRN Reason: NAUSEA Last Admin: 02/14/18 23:00 Dose: 8 mg Polyethylene Glycol (Miralax (For Daily Use) -) 17 gm PO DAILY [facility] Last Admin: 02/21/18 10:14 Dose: 17 gm Ranitidine HCl (Zantac -) 150 mg PO DAILY [facility] Last Admin: 02/21/18 10:13 Dose: 150 mg Sodium Chloride ([place] Nasal [place] -) 2 spray NS BID [facility] Last Admin: 02/21/18 10:14 Dose: 2 spray Torsemide (Demadex -) 40 mg PO DAILY [facility] Last Admin: 02/21/18 10:13 Dose: 40 mg - Objective Vital Signs: Vital Signs Temperature 98 F 02/21/18 06:00 Pulse Rate 65 02/21/18 10:00 Respiratory Rate 18 02/21/18 10:00 Blood Pressure 141/58 02/21/18 10:00 O2 Sat by Pulse Oximetry (%) 99 02/20/18 21:00 Constitutional: Yes: No Distress, Calm Neck: Yes: Supple Cardiovascular: Yes: Regular Rate and Rhythm Respiratory: Yes: Regular, Diminished Gastrointestinal: Yes: Normal Bowel Sounds, Soft Edema: No Labs: CBC, BMP 02/21/18 06:30 02/21/18 06:30 Problem List - Problems (1) Hypothyroidism Code(s): E03.9 - HYPOTHYROIDISM, UNSPECIFIED Qualifiers: Hypothyroidism type: unspecified Qualified Code(s): E03.9 - Hypothyroidism , unspecified (2) [id number] kidney injury Code(s): N17.9 - ACUTE KIDNEY FAILURE, UNSPECIFIED; N18.9 - CHRONIC KIDNEY DISEASE, UNSPECIFIED Qualifiers: Acute renal failure type: unspecified (3) Diabetes mellitus Code(s): E11.9 - TYPE 2 DIABETES MELLITUS WITHOUT COMPLICATIONS Qualifiers: Diabetes mellitus type: type 2 Diabetes mellitus complication status: with kidney complications Diabetes mellitus complication detail: with chronic kidney disease (4) HLD (hyperlipidemia) Code(s): E78.5 - HYPERLIPIDEMIA, UNSPECIFIED Qualifiers: Hyperlipidemia type: pure hypercholesterolemia Qualified Code(s): E78.00 - Pure hypercholesterolemia, unspecified; E78.0 - Pure hypercholesterolemia (5) HTN (hypertension) Code(s): I10 - ESSENTIAL (PRIMARY) HYPERTENSION Qualifiers: Hypertension type: essential hypertension Qualified Code(s): I10 - Essential (primary) hypertension (6) Acute on chronic systolic and diastolic heart failure, NYHA class 3 Code(s): I50.43 - ACUTE ON CHRONIC COMBINED SYSTOLIC AND DIASTOLIC HRT FAIL Assessment/Plan Lexiscan MPI: 05/10/2016 Small mild anterior and inferior ischemia, LVEF 65% Echo: 06/25/2015 conc LVH, with normal LV systolic function mod LOUISE 1.1 cm^2 , mild TR, MR, AR Echocardiogram: 02/15/2018 Moderate decreased LV fxn, mild LAE, mild-mod MR, AR , mod TR, aortic sclerosis 1. Acute on chronic diastolic/systolic failure with pleural effusion resolved 2. 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 HTN/HCVD 4. Hyperlipidemia 5. Type 2 DM 6. Hypothyroidism 7. CAD, angina pectoris 8. Hyperuricemia 9. Hypernatremia improved P: 1. Decrease Demadex 20 qd in a week with monitor renal function and electrolytes 2. Hold Hyzaar pending given low eGFR 3. Continue Norvasc 10 qd, ASA 81 qd, Lipitor 40 qhs, Toprol XL 100qd 4. DVT and GI prophylaxis 5. D/c planning with f/u with Dr. Ruiz Thursday March 08, 2018
--- NOTE | 2018-02-21 11:41 | PN ---
Progress Note (short form) - Note Progress Note: PULMONARY Denies shortness of breath or chest pain. Vital Signs Period Temp Pulse Resp BP Sys/Dan Pulse Ox Last 24 Hr 98 F-98.3 F 59-82 18-20 106-159/52-87 92-99 Intake & Output 02/18/18 02/19/18 02/20/18 02/21/18 23:59 23:59 23:59 23:59 Intake Total 650 600 800 Output Total 300 Balance 350 600 800 Weight 77.111 kg 77.564 kg 76.226 kg 76.209 kg Gen: NAD at rest Heart: RRR Lung: decreased breath sounds right base Abd: soft, nontender Ext: no edema CBC, BMP 02/21/18 06:30 02/21/18 06:30 Active Medications Amlodipine Besylate (Norvasc -) 10 mg PO DAILY [facility] Last Admin: 02/21/18 10:13 Dose: 10 mg Aspirin (Asa -) 81 mg PO DAILY [facility] Last Admin: 02/21/18 10:12 Dose: 81 mg Atorvastatin Calcium (Lipitor -) 40 mg PO HS [facility] Last Admin: 02/20/18 21:50 Dose: 40 mg Calcium Carbonate/Cholecalciferol (Os-Pedro 500+D -) 1 tab PO DAILY [facility] Last Admin: 02/21/18 10:14 Dose: 1 tab Cholecalciferol (Vitamin D3 -) 1,000 unit PO DAILY [facility] Last Admin: 02/21/18 10:13 Dose: 1,000 unit Heparin Sodium (Porcine) (Heparin -) 5,000 unit SQ BID [facility] Last Admin: 02/21/18 10:12 Dose: 5,000 unit Insulin Aspart (Novolog Vial Sliding Scale -) 1 vial SQ TIDAC [facility]; Protocol Last Admin: 02/21/18 11:17 Dose: Not Given Levothyroxine Sodium (Synthroid -) 25 mcg PO DAILY@0700 [facility] Last Admin: 02/21/18 06:32 Dose: 25 mcg Metoprolol Succinate (Toprol Xl -) 100 mg PO DAILY [facility] Last Admin: 02/21/18 10:13 Dose: 100 mg Multivitamins/Minerals/Vitamin C (Tab-A-Vit -) 1 tab PO DAILY [facility] Last Admin: 02/21/18 10:14 Dose: 1 tab Ondansetron HCl (Zofran Injection) 8 mg IVPB Q8H PRN PRN Reason: NAUSEA Last Admin: 02/14/18 23:00 Dose: 8 mg Polyethylene Glycol (Miralax (For Daily Use) -) 17 gm PO DAILY [facility] Last Admin: 02/21/18 10:14 Dose: 17 gm Ranitidine HCl (Zantac -) 150 mg PO DAILY [facility] Last Admin: 02/21/18 10:13 Dose: 150 mg Sodium Chloride ([place] Nasal [place] -) 2 spray NS BID [facility] Last Admin: 02/21/18 10:14 Dose: 2 spray Torsemide (Demadex -) 40 mg PO DAILY [facility] Last Admin: 02/21/18 10:13 Dose: 40 mg A/P Acute on Chronic Diastolic Heart Failure Pleural Effusion due to above Paroxysmal Atrial Fibrillation CAD HTN Hyperlipidemia DM - continue lasix - monitor urine output, creatinine - pt currently denies shortness of breath and feels better with diuresis, can defer thoracentesis at this time - DVT prophylaxis Problem List - Problems (1) Acute on chronic diastolic heart failure Code(s): I50.33 - ACUTE ON CHRONIC DIASTOLIC (CONGESTIVE) HEART FAILURE (2) Pleural effusion Code(s): J90 - PLEURAL EFFUSION, NOT ELSEWHERE CLASSIFIED (3) Aortic stenosis, moderate Code(s): I35.0 - NONRHEUMATIC AORTIC (VALVE) STENOSIS (4) Diabetes mellitus Code(s): E11.9 - TYPE 2 DIABETES MELLITUS WITHOUT COMPLICATIONS Qualifiers: Diabetes mellitus type: type 2 Diabetes mellitus complication status: with kidney complications Diabetes mellitus complication detail: with chronic kidney disease (5) HLD (hyperlipidemia) Code(s): E78.5 - HYPERLIPIDEMIA, UNSPECIFIED Qualifiers: Hyperlipidemia type: pure hypercholesterolemia Qualified Code(s): E78.00 - Pure hypercholesterolemia, unspecified; E78.0 - Pure hypercholesterolemia (6) HTN (hypertension) Code(s): I10 - ESSENTIAL (PRIMARY) HYPERTENSION Qualifiers: Hypertension type: essential hypertension Qualified Code(s): I10 - Essential (primary) hypertension (7) CKD (chronic kidney disease) Code(s): N18.9 - CHRONIC KIDNEY DISEASE, UNSPECIFIED (8) Hypothyroidism Code(s): E03.9 - HYPOTHYROIDISM, UNSPECIFIED Qualifiers: Hypothyroidism type: unspecified Qualified Code(s): E03.9 - Hypothyroidism , unspecified
--- NOTE | 2018-02-21 12:47 | DS ---
Physical Examination Vital Signs: Vital Signs Temperature 36.6 C 02/21/18 06:00 Pulse Rate 65 02/21/18 10:00 Respiratory Rate 18 02/21/18 10:00 Blood Pressure 141/58 02/21/18 10:00 O2 Sat by Pulse Oximetry (%) 99 02/20/18 21:00 Constitutional: Yes: Well Nourished, No Distress, Calm Cardiovascular: Yes: Regular Rate and Rhythm. No: Gallop, Murmur, Rub Respiratory: Yes: Regular, CTA Bilaterally. No: Rales, Rhonchi, Wheezes Gastrointestinal: Yes: Normal Bowel Sounds, Soft. No: Distention, Tenderness Extremities: Yes: WNL Edema: No Labs: CBC, BMP 02/21/18 06:30 02/21/18 06:30 Discharge Summary Reason For Visit: COUGH HOARSENESS SENSATION OF CHEST PRES Current Active Problems ISELA (acute kidney injury) (Acute) Acute on chronic diastolic heart failure (Acute) Acute on chronic systolic and diastolic heart failure, NYHA class 3 (Acute) Iessr-up-ntzbzxo kidney injury (Acute) Aortic stenosis, moderate (Acute) CKD (chronic kidney disease) (Acute) Chest pressure (Acute) Cough (Acute) Diabetes mellitus (Acute) HLD (hyperlipidemia) (Acute) HTN (hypertension) (Acute) Hoarseness of voice (Acute) Hypothyroidism (Acute) Nasal bleeding (Acute) Nausea (Acute) Pleural effusion (Acute) Hospital Course: (1) Chest pressure Code(s): R07.89 - OTHER CHEST PAIN (2) Acute on chronic diastolic heart failure Code(s): I50.33 - ACUTE ON CHRONIC DIASTOLIC (CONGESTIVE) HEART FAILURE (3) Ztmxv-hw-ptzsmqr kidney injury Code(s): N17.9 - ACUTE KIDNEY FAILURE, UNSPECIFIED; N18.9 - CHRONIC KIDNEY DISEASE, UNSPECIFIED Qualifiers: Acute renal failure type: unspecified (4) Aortic stenosis, moderate Code(s): I35.0 - NONRHEUMATIC AORTIC (VALVE) STENOSIS (5) Diabetes mellitus Code(s): E11.9 - TYPE 2 DIABETES MELLITUS WITHOUT COMPLICATIONS Qualifiers: Diabetes mellitus type: type 2 Diabetes mellitus complication status: with kidney complications Diabetes mellitus complication detail: with chronic kidney disease (6) HLD (hyperlipidemia) Code(s): E78.5 - HYPERLIPIDEMIA, UNSPECIFIED Qualifiers: Hyperlipidemia type: pure hypercholesterolemia Qualified Code(s): E78.00 - Pure hypercholesterolemia, unspecified; E78.0 - Pure hypercholesterolemia (7) HTN (hypertension) Code(s): I10 - ESSENTIAL (PRIMARY) HYPERTENSION Qualifiers: Hypertension type: essential hypertension Qualified Code(s): I10 - Essential (primary) hypertension (8) Hypothyroidism Code(s): E03.9 - HYPOTHYROIDISM, UNSPECIFIED Qualifiers: Hypothyroidism type: unspecified Qualified Code(s): E03.9 - Hypothyroidism , unspecified Ms Lua is a very pleasant 88 year old female who came in with chest pressure and was found to have acute on chronic diastolic dysfunction. She was admitted to the hospital and seen by cardiology. She was cleared from a cardiac standpoint for her chest pain. Because of her ISELA on CKD, she received IVF. After this she became hypoxic and was found to have a CHF exacerbation. CXR was performed and she was found to have pleural effusions. She was first diuresed with IV lasix after IVF was stopped with good response. She was then transitioned to oral lasix. She continued to do well and her medications was changed to torsemide. She is currently stable for discharge home. Currently no need for thoracentesis. 33 minutes spent in preparation of this discharge Condition: Stable - Instructions Diet, Activity, Other Instructions: resume previous diet and activity Referrals: Walker Padilla MD [Primary Care Provider] - Genesis Vargas MD [Staff Physician] - Tari Ruiz MD [Staff Physician] - Miguel Ramirez MD [Staff Physician] - Disposition: VNS/HOME HEALTH CARE - Home Medications Comprehensive Discharge Medication List: Ambulatory Orders Allopurinol [Zyloprim -] 200 mg PO DAILY 03/19/14 Amlodipine Besylate [Norvasc -] 10 mg PO DAILY 03/19/14 Aspirin [ASA -] 325 mg PO DAILY 03/19/14 Atorvastatin Ca [Lipitor] 40 mg PO HS 03/19/14 Cholecalciferol (Vitamin D3) [Vitamin D3] 1,000 unit PO DAILY 03/19/14 Metoprolol Succinate [Toprol XL -] 100 mg PO DAILY 03/19/14 Multivitamins [Multivit ([facility] Formulary)] 1 tab PO DAILY 03/19/14 Guar Gum [Benefiber] 1 each PO BID #0 packet 05/21/14 Calcium Carbonate/Vitamin D3 [Calcium 500-Vit D3 200 Caplet] 1 each PO DAILY 06/23 Levothyroxine [Synthroid -] 25 mcg PO DAILY 02/13/18 Torsemide [Demadex -] 20 mg PO DAILY #30 tablet 02/21/18
[2018-02-21 13:18] VITALS: BP 136/63; PULSE 66; TEMP 97.6
--- NOTE | 2018-02-21 15:21 | PN ---
Progress Note (short form) - Note Progress Note: Renal follow up for CKD pt seen and examined at the bedside no complaints no sob, chest pain making urine Vital Signs Temperature 97.6 F 02/21/18 13:17 Pulse Rate 66 02/21/18 13:17 Respiratory Rate 16 02/21/18 13:17 Blood Pressure 136/63 02/21/18 13:17 O2 Sat by Pulse Oximetry (%) 95 02/21/18 09:00 Intake & Output 02/18/18 02/19/18 02/20/18 02/21/18 23:59 23:59 23:59 23:59 Intake Total 650 600 800 Output Total 300 Balance 350 600 800 Weight 77.111 kg 77.564 kg 76.226 kg 76.209 kg NAD RRR CTA no edema CBC, BMP 02/21/18 06:30 02/21/18 06:30 Current Medications Amlodipine Besylate (Norvasc -) 10 mg PO DAILY [facility] Last Admin: 02/21/18 10:13 Dose: 10 mg Aspirin (Asa -) 81 mg PO DAILY [facility] Last Admin: 02/21/18 10:12 Dose: 81 mg Atorvastatin Calcium (Lipitor -) 40 mg PO HS [facility] Last Admin: 02/20/18 21:50 Dose: 40 mg Calcium Carbonate/Cholecalciferol (Os-Pedro 500+D -) 1 tab PO DAILY [facility] Last Admin: 02/21/18 10:14 Dose: 1 tab Cholecalciferol (Vitamin D3 -) 1,000 unit PO DAILY [facility] Last Admin: 02/21/18 10:13 Dose: 1,000 unit Heparin Sodium (Porcine) (Heparin -) 5,000 unit SQ BID [facility] Last Admin: 02/21/18 10:12 Dose: 5,000 unit Insulin Aspart (Novolog Vial Sliding Scale -) 1 vial SQ TIDAC [facility]; Protocol Last Admin: 02/21/18 11:17 Dose: Not Given Levothyroxine Sodium (Synthroid -) 25 mcg PO DAILY@0700 [facility] Last Admin: 02/21/18 06:32 Dose: 25 mcg Metoprolol Succinate (Toprol Xl -) 100 mg PO DAILY [facility] Last Admin: 02/21/18 10:13 Dose: 100 mg Multivitamins/Minerals/Vitamin C (Tab-A-Vit -) 1 tab PO DAILY [facility] Last Admin: 02/21/18 10:14 Dose: 1 tab Ondansetron HCl (Zofran Injection) 8 mg IVPB Q8H PRN PRN Reason: NAUSEA Last Admin: 02/14/18 23:00 Dose: 8 mg Polyethylene Glycol (Miralax (For Daily Use) -) 17 gm PO DAILY [facility] Last Admin: 02/21/18 10:14 Dose: 17 gm Ranitidine HCl (Zantac -) 150 mg PO DAILY [facility] Last Admin: 02/21/18 10:13 Dose: 150 mg Sodium Chloride ([place] Nasal [place] -) 2 spray NS BID [facility] Last Admin: 02/21/18 10:14 Dose: 2 spray Torsemide (Demadex -) 40 mg PO DAILY [facility] Last Admin: 02/21/18 10:13 Dose: 40 mg 88 year old woman with PMhx of CKD stage 4 (baseline Cr 2.7), DM, Hypertension, HLD, Breast Ca, Depression who presented with chest pain and pressure and admitted for r/o ACS. 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 Araujo in 1-2 weeks stable for discharge from renal perspective Miguel Ramirez DO
== END 2018-02-21 16:43 | disposition home health service (06) | DRG 682 ==
LOC: JER 16:49 → JERBED 02-14 00:45 → UNDOADMOB 02-14 01:40 → J5S 02-14 06:47 → OBSVTOIN 02-15 14:20
PROVIDERS: ADMIT Internal Medicine; ATTEND Internal Medicine
DX: N17.9 Acute kidney failure, unspecified (principal); I50.33 Acute on chronic diastolic (congestive) heart failure; I13.0 Hypertensive heart and chronic kidney disease with heart failure and stage 1 through stage 4 chronic kidney disease, or unspecified chronic kidney disease; E87.0 Hyperosmolality and hypernatremia; E78.5 Hyperlipidemia, unspecified; R05 Cough; N18.4 Chronic kidney disease, stage 4 (severe); D64.9 Anemia, unspecified; E03.9 Hypothyroidism, unspecified; I35.0 Nonrheumatic aortic (valve) stenosis; I48.0 Paroxysmal atrial fibrillation; E11.22 Type 2 diabetes mellitus with diabetic chronic kidney disease; I25.119 Atherosclerotic heart disease of native coronary artery with unspecified angina pectoris; E11.21 Type 2 diabetes mellitus with diabetic nephropathy; R04.0 Epistaxis; R07.89 Other chest pain
CPT/HCPCS: 36415; 36600; 70450-TC; 70486-TC; 71045-TC-FY; 71046-TC-FY; 80048; 80053; 80061; 81003; 81015; 82550; 82728; 82803; 82962; 83540; 83550; 83721; 83735; 83880; 84100; 84443; 84484; 85025; 85379; 93005; 93010; 93306-TC; 94761; 97116-GP; 97161-GP; 99283-25; G0378; J1644; J7030

== ENCOUNTER 2018-04-14 16:21 | Inpatient (IN) | payer BC, OTHER ==
--- NOTE | 2018-04-14 16:47 | PDOC ---
History of Present Illness - General Chief Complaint: Chest Pain Stated Complaint: CHEST PAIN Time Seen by Provider: 04/14/18 16:47 History Source: Patient Exam Limitations: No Limitations - History of Present Illness Initial Comments: 04/14/18 18:15 88 yo F with a recent admission 02/2018 for chest pain (CHF exacerbation) with a pmhx of diastolic CHF, CKD, DM, HLD, HTN, breast cancer (right masectomy 2 years ago, no chemo), and CAD who presents to the emergency department with chest pain. This occurred after waking up at 2:30 pm where she felt a center chest pain that was pressure like without radiation. Endorses having concurrent lightheadedness, SOB, and a "sour taste" in her mouth. This episode lasted "for at least an hour" before she called her son. Currently does not have chest pain. Of note, the patient ran out of her medications for allopurinol and amlodipine since yesterday, but did take her full dose aspirin and torsemide today. Pmhx: Refer to above Surgery: right partial mastectomy 2 years ago Allergoes: metronidazole Social hx: Denies tobacco, alcohol, and substance abuse Past History - Past Medical History Allergies/Adverse Reactions: Allergies Allergy/AdvReac Type Severity Reaction Status Date / Time metronidazole [From Flagyl] Allergy Severe Swelling Verified 02/13/18 17:02 Home Medications: Ambulatory Orders Allopurinol [Zyloprim -] 200 mg PO DAILY 03/19/14 Amlodipine Besylate [Norvasc -] 10 mg PO DAILY 03/19/14 Aspirin [ASA -] 325 mg PO DAILY 03/19/14 Atorvastatin Ca [Lipitor] 40 mg PO HS 03/19/14 Cholecalciferol (Vitamin D3) [Vitamin D3] 1,000 unit PO DAILY 03/19/14 Metoprolol Succinate [Toprol XL -] 100 mg PO DAILY 03/19/14 Multivitamins [Multivit ([facility] Formulary)] 1 tab PO DAILY 03/19/14 Guar Gum [Benefiber] 1 each PO BID #0 packet 05/21/14 Calcium Carbonate/Vitamin D3 [Calcium 500-Vit D3 200 Caplet] 1 each PO DAILY 06/23 Levothyroxine [Synthroid -] 25 mcg PO DAILY 02/13/18 Torsemide [Demadex -] 20 mg PO DAILY #30 tablet 02/21/18 Anemia: No Asthma: No Cancer: Yes (BREAST) Cardiac Disorders: Yes (STENT 14 YRS AGO) CVA: No COPD: No CHF: Yes (TAKES LASIX) Dementia: No Diabetes: Yes GI Disorders: No Disorders: Yes (ONE FUNCTIONING KIDNEY) HTN: Yes Hypercholesterolemia: Yes Liver Disease: No Seizures: No Thyroid Disease: No - Surgical History Abdominal Surgery: No Appendectomy: Yes Cardiac Surgery: Yes (ANGIO) Cholecystectomy: No Lung Surgery: No Neurologic Surgery: No Orthopedic Surgery: No - Immunization History Immunization Up to Date: Yes - Suicide/Smoking/Psychosocial Hx Smoking Status: No Smoking History: Never smoked Have you smoked in the past 12 months: No Number of Cigarettes Smoked Daily: 0 Hx Alcohol Use: No Drug/Substance Use Hx: No Substance Use Type: None Hx Substance Use Treatment: No Review of Systems - Review of Systems Able to Perform ROS?: Yes Constitutional: No: Chills, Diaphoresis, Fever HEENTM: No: Recent change in vision, Ear Pain, Nose Pain, Throat Pain, Mouth Pain Respiratory: No: Cough, Shortness of Breath Cardiac (ROS): Yes: Chest Pain, Lightheadedness. No: Palpitations, Syncope, Chest Tightness ABD/GI: No: Constipated, Diarrhea, Nausea, Vomiting : No: Burning, Dysuria, Hematuria Musculoskeletal: No: Back Pain Integumentary: No: Rash, Sweating Neurological: No: Headache, Numbness, Paresthesia, Tingling, Tremors, Weakness Psychiatric: No: Stressors Endocrine: No: Increased Hunger Hematologic/Lymphatic: No: Anemia *Physical Exam - Vital Signs Last Vital Signs Temp Pulse Resp BP Pulse Ox 97.9 F 69 18 148/67 97 04/14/18 16:23 04/14/18 16:23 04/14/18 16:23 04/14/18 16:23 04/14/18 16:23 - Physical Exam General Appearance: Yes: Nourished, Appropriately Dressed HEENT: positive: EOMI, JACLYN Neck: positive: Trachea midline. negative: Lymphadenopathy (R), Lymphadenopathy (L) Respiratory/Chest: positive: Lungs Clear, Normal Breath Sounds. negative: Chest Tender, Respiratory Distress, Accessory Muscle Use Cardiovascular: positive: Regular Rhythm, Regular Rate, S1, S2, Systolic Murmur (grade 2) Vascular Pulses: Dorsalis-Pedis (R): 3+, Doralis-Pedis (L): 3+ Gastrointestinal/Abdominal: positive: Normal Bowel Sounds, Soft. negative: Tender Lymphatic: negative: Adenopathy Musculoskeletal: positive: Normal Inspection. negative: CVA Tenderness Extremity: positive: Normal Capillary Refill, Normal Inspection, Normal Range of Motion, Other (bilateral edema. negative erythema. ) Integumentary: positive: Normal Color, Dry, Warm Neurologic: positive: goods layer II-XII NML intact, Fully Oriented, Alert, Normal Mood/ Affect, Normal Response, Motor Strength 5/5 Heart Score/ECG Review - History History: Slightly suspicious - Electrocardiogram EKG: Non specific repolarization disturbance - Age Age: >/= 65 - Risk Factors Risk Factors Heart Score: Yes Hx Hypercholesterolemia, Yes Hx Hypertension, Yes Hx Diabetes Based on the list above the patient has:: >/=3 risk factors or Hx atherosclerotic disease - Troponin Troponin: </= normal limit - Score Heart Score - Total: 5 - ECG Intrepretation Comment:: 04/14/18 20:39 ventricular rate: 68 bpm, MA 224 ms, QRS 152 ms, QTc is 521 ms. Sinus rhythm with 1st degree AC block with LBBB. ED Treatment Course - LABORATORY CBC & Chemistry Diagram: 04/14/18 17:50 04/14/18 17:50 Medical Decision Making - Medical Decision Making 04/14/18 18:12 88 yo F with multiple medical hx with a recent admission for CHF exacerbation in 02/2018 presenting to the emergency with one episode of chest pain with associated SOB today after waking up with headaches. ddx: CHF exacerbation, ACS, pericarditis, pleuritis, PNA, costocondritis, pulmonary edema. Initial vitals: Initial Vital Signs Temp Pulse Resp BP Pulse Ox 97.9 F 69 18 148/67 97 04/14/18 16:23 04/14/18 16:23 04/14/18 16:23 04/14/18 16:23 04/14/18 16:23 WOrk up: Laboratory Tests 04/14/18 04/14/18 17:50 17:50 WBC 8.5 RBC 3.40 L Hgb 11.0 Hct 32.9 MCV 96.8 H MCH 32.2 MCHC 33.3 RDW 14.1 Plt Count 182 D MPV 10.0 Absolute Neuts (auto) 6.7 Neutrophils % 78.7 D Lymphocytes % 12.3 D Monocytes % 5.7 Eosinophils % 2.3 Basophils % 1.0 Nucleated RBC % 0 Sodium 144 Potassium 3.5 Chloride 106 Carbon Dioxide 26 Anion Gap 12 BUN 68 H Creatinine 3.3 H Creat Clearance w eGFR 13.22 Random Glucose 142 H Calcium 8.9 Total Bilirubin 0.5 AST 18 ALT 15 Alkaline Phosphatase 75 Creatine Kinase 56 Troponin I 0.06 H B-Natriuretic Peptide 00966.78 H Total Protein 6.8 Albumin 3.3 L CXR did not have acute inparenchymal pathologies. Possible small pleural effusions in the right base of the lung. Troponin was 0.06. Comparing her old EKG, she had a LBBB and today still a LBBB without ST elevations or depressions with noted PVCs in V6. Given her hx and cardiac values, we will admit her for observation tele. She took her aspirin 325 mg dose today, thus no need to re-dose full aspirin dose if taken in the last 24 hours. Reassessed her at 8:30 pm. Denies SOB and chest pain. Disposition Admit to obs tele *DC/Admit/Observation/Transfer Diagnosis at time of Disposition: Elevated troponin Chest pain Qualifiers: Chest pain type: unspecified Qualified Code(s): R07.9 - Chest pain, unspecified - Discharge Dispostion Decision to Admit order: Yes - Referrals - Patient Instructions - Post Discharge Activity
--- NOTE | 2018-04-14 16:49 | PDOC ---
Attending Attestation - Resident Resident Name: Mynor Moore - HPI HPI: 04/14/18 18:51 PT presents to the ED complaining of chest heaviness and shortness of breath that began when she woke up tomorrow. Denies fever or cough. Does report some nausea and lightheadness. - Physicial Exam PE: 04/14/18 19:09 Agree with resident exam. Patient is alert and oriented x 3 and in no acute distress. Lungs: CTA B/l. Abdomen: soft, NT, ND with no guarding or rebound. CV: rrr no m/r/g - Medical Decision Making 04/14/18 19:12 Pt presents to the ED complaining of chest heaviness and shortness of breath. Multiple risk factors for cardiac disease--HEART score is 4. Differential includes ACS, less likely CHF, pulmonary disease, PE. Will check labs and admit to medicine for rule out ACS.
[2018-04-14 17:56] LABS: EOS % 2.3 % (0-4.5); HEMATOCRIT 32.9 % (32.4-45.2); LYMPH % 12.3 % (8-40); MCH 32.2 pg (25.7-33.7); MCHC 33.3 g/dl (32.0-36.0); MEAN CELL VOLUME 96.8 fl (80-96); MONO % 5.7 % (3.8-10.2); NEUT % 78.7 % (42.8-82.8); PLATELET COUNT 182 K/MM3 (134-434); RDW 14.1 % (11.6-15.6); WHITE BLOOD COUNT 8.5 K/mm3 (4.0-10.0)
[2018-04-14 18:29] LABS: ALBUMIN 3.3 g/dl (3.4-5.0); ANION GAP 12 MMOL/L (8-16); BILIRUBIN,TOTAL 0.5 mg/dL (0.2-1.0); BLOOD UREA NITROGEN 68 mg/dL (7-18); CALCIUM 8.9 mg/dL (8.5-10.1); CHLORIDE 106 mmol/L (98-107); CO2 26 mmol/L (21-32); CREATININE 3.3 mg/dL (0.55-1.02); GLUCOSE,RANDOM 142 mg/dL (74-106); POTASSIUM 3.5 mmol/L (3.5-5.1); SGOT/AST 18 U/L (15-37); SGPT/ALT 15 U/L (12-78); SODIUM 144 mmol/L (136-145); TOT PROT 6.8 g/dl (6.4-8.2)
[2018-04-14 18:31] LABS: ALK PHOS 75 U/L (45-117); N-TERMINAL BNP 14361.78 pg/ml (5-450)
--- NOTE | 2018-04-14 21:37 | HP ---
Admitting History and Physical - Admission Chief Complaint: chest pain History of Present Illness: 88 yo female, presents to ED with chest pain. Pain started this morning, on and off through the day, feeling like a heaviness in her chest. No recent cough or congestion, no fevers. Does have a history of CRI and CHF and notes that last week she had a stress test with kitchen cleaner (Dr Ruiz) who she notes was then discussing with her environmental field team member about another procedure, but that may lead to dialysis (angiogram?). No shortness fo breath now. Notes no rash on her chest. History Source: Patient, Medical Record Limitations to Obtaining History: No Limitations - Past Medical History Cardiovascular: Yes: CAD (s/p stents around 20 years ago ), CHF, HTN, Hyperlipdemia Renal/: Yes: Other (1 working kidney due to ? renal atrophy ) Heme/Onc: Yes: Cancer (R breast cacer- s/p partial masectomy) Endocrine: Yes: Diabetes Mellitus - Past Surgical History Past Surgical History: Yes: Mastectomy (partial R sided ) - Smoking History Smoking history: Never smoked Have you smoked in the past 12 months: No Aproximately how many cigarettes per day: 0 - Alcohol/Substance Use Hx Alcohol Use: No History of Substance Use: reports: None - Social History ADL: Independent Home Medications - Allergies Allergies/Adverse Reactions: Allergies Allergy/AdvReac Type Severity Reaction Status Date / Time metronidazole [From Flagyl] Allergy Severe Swelling Verified 02/13/18 17:02 - Home Medications Home Medications: Ambulatory Orders Allopurinol [Zyloprim -] 200 mg PO DAILY 03/19/14 Amlodipine Besylate [Norvasc -] 10 mg PO DAILY 03/19/14 Aspirin [ASA -] 325 mg PO DAILY 03/19/14 Atorvastatin Ca [Lipitor] 40 mg PO HS 03/19/14 Cholecalciferol (Vitamin D3) [Vitamin D3] 1,000 unit PO DAILY 03/19/14 Metoprolol Succinate [Toprol XL -] 100 mg PO DAILY 03/19/14 Multivitamins [Multivit ([facility] Formulary)] 1 tab PO DAILY 03/19/14 Guar Gum [Benefiber] 1 each PO BID #0 packet 05/21/14 Calcium Carbonate/Vitamin D3 [Calcium 500-Vit D3 200 Caplet] 1 each PO DAILY 06/23 Levothyroxine [Synthroid -] 25 mcg PO DAILY 02/13/18 Torsemide [Demadex -] 20 mg PO DAILY #30 tablet 02/21/18 Family Disease History - Family Disease History Family History: Unremarkable Review of Systems - Review of Systems Constitutional: denies: Fever, Loss of Appetite Eyes: reports: No Symptoms HENT: denies: Difficult Swallowing, Epistaxis, Throat Pain Neck: denies: Pain on Movement, Tenderness Respiratory: denies: Cough, SOB, Wheezing Gastrointestinal: denies: Abdominal Pain, Diarrhea, Melena, Nausea, Vomiting Genitourinary: denies: Burning, Discharge, Dysuria Physical Examination Vital Signs: Vital Signs Temperature 97.9 F 04/14/18 16:23 Pulse Rate 69 04/14/18 16:23 Respiratory Rate 18 04/14/18 16:23 Blood Pressure 148/67 04/14/18 16:23 O2 Sat by Pulse Oximetry (%) 97 04/14/18 16:23 Constitutional: Yes: Well Nourished, No Distress, Calm Eyes: Yes: Conjunctiva Clear, EOM Intact, PERRL HENT: Yes: Atraumatic, Normocephalic Neck: Yes: Supple, Trachea Midline Cardiovascular: Yes: Regular Rate and Rhythm, S1, S2. No: Murmur Respiratory: Yes: Regular, CTA Bilaterally. No: Rales, Rhonchi, Wheezes Gastrointestinal: Yes: Normal Bowel Sounds, Soft. No: Distention, Tenderness Musculoskeletal: Yes: Other (tenderness to palpation of left chest anteriorly, no rash or erythema) Edema: No Neurological: Yes: Alert, Oriented Labs: CBC, BMP 04/14/18 17:50 04/14/18 17:50 Imaging - Results Chest X-ray: Image Reviewed (Right base with congestive changes (better aeration than 02/20/18 CXR)) Problem List - Problems (1) Chest pain Assessment/Plan: -with chest pain and elevated troponin, admitted for observation on tele -cardio to consult (recent stress test) -check serial CE Code(s): R07.9 - CHEST PAIN, UNSPECIFIED Qualifiers: Chest pain type: unspecified Qualified Code(s): R07.9 - Chest pain, unspecified (2) Elevated troponin Assessment/Plan: -does have CRI, often troponin elevated with this, but will have to f/u CE to trend values Code(s): R74.8 - ABNORMAL LEVELS OF OTHER SERUM ENZYMES (3) CKD (chronic kidney disease) Assessment/Plan: -creatinine 3.3, appears similar to prior -Renal eval, as may need further cardiac testing Code(s): N18.9 - CHRONIC KIDNEY DISEASE, UNSPECIFIED (4) CHF (congestive heart failure) Assessment/Plan: -does not appear to be in active CHF exacerbation -cont demedex Code(s): I50.9 - HEART FAILURE, UNSPECIFIED (5) HLD (hyperlipidemia) Assessment/Plan: -cont lipitor Code(s): E78.5 - HYPERLIPIDEMIA, UNSPECIFIED Qualifiers: Hyperlipidemia type: pure hypercholesterolemia Qualified Code(s): E78.00 - Pure hypercholesterolemia, unspecified; E78.0 - Pure hypercholesterolemia (6) HTN (hypertension) Assessment/Plan: -on toprol Code(s): I10 - ESSENTIAL (PRIMARY) HYPERTENSION Qualifiers: Hypertension type: essential hypertension Qualified Code(s): I10 - Essential (primary) hypertension (7) Hypothyroidism Assessment/Plan: -on synthroid Code(s): E03.9 - HYPOTHYROIDISM, UNSPECIFIED Qualifiers: Hypothyroidism type: unspecified Qualified Code(s): E03.9 - Hypothyroidism , unspecified
[2018-04-14] MEDS ORDERED: GUAR GUM PO SCH (22:00)
[2018-04-14] MEDS ORDERED: ATORVASTATIN CA 40 MG TABLET (FP) ONE (22:07)
[2018-04-14] MEDS: ATORVASTATIN CA 40 MG TABLET (FP) PO SCH (22:15)
[2018-04-15 06:58] LABS: ANION GAP 11 MMOL/L (8-16); BLOOD UREA NITROGEN 69 mg/dL (7-18); CALCIUM 8.9 mg/dL (8.5-10.1); CHLORIDE 104 mmol/L (98-107); CO2 30 mmol/L (21-32); CREATININE 3.4 mg/dL (0.55-1.02); GLUCOSE,RANDOM 102 mg/dL (74-106); POTASSIUM 3.4 mmol/L (3.5-5.1); SODIUM 145 mmol/L (136-145)
[2018-04-15] MEDS ORDERED: LEVOTHYROXINE NA 25 MCG TABLET (FP) ONE (07:40)
[2018-04-15] MEDS: LEVOTHYROXINE NA 25 MCG TABLET (FP) PO SCH (07:48)
[2018-04-15] MEDS: ASPIRIN 325 MG TABLET PO SCH (09:20)
[2018-04-15] MEDS: CALCIUM 500MG/VIT-D 200 UNITS COMBO TABLET (FP) PO SCH (09:20)
[2018-04-15] MEDS: CHOLECALCIFEROL (VITAMIN D3) 1,000 UNIT TABLET (FP) PO SCH (09:20)
[2018-04-15] MEDS: TORSEMIDE 20 MG TABLET (FP) PO SCH (09:20)
[2018-04-15] MEDS: MULTIVITAMINS (DAILY MVI) TABLET (FP) PO SCH (09:20)
[2018-04-15] MEDS ORDERED: ASPIRIN 325 MG TABLET ONE (09:22)
[2018-04-15] MEDS ORDERED: ALLOPURINOL 100 MG TABLET (FP) ONE (09:22)
[2018-04-15] MEDS: ALLOPURINOL 100 MG TABLET (FP) PO SCH (09:28)
--- NOTE | 2018-04-15 09:59 | PN ---
Progress Note (short form) - Note Progress Note: Dr. Sweet to document today.
[2018-04-15] MEDS ORDERED: amLODIPine BESYLATE 10 MG TABLET (FP) PO SCH (10:00)
--- NOTE | 2018-04-15 10:27 | EKG ---
Test Reason : Blood Pressure : / mmHG Vent. Rate : 068 BPM Atrial Rate : 068 BPM P-R Int : 224 ms QRS Dur : 152 ms QT Int : 490 ms P-R-T Axes : 034 -58 087 degrees QTc Int : 521 ms SINUS RHYTHM WITH 1ST DEGREE A-V BLOCK WITH OCCASIONAL PREMATURE VENTRICULAR COMPLEXES LEFT AXIS DEVIATION LEFT BUNDLE BRANCH BLOCK ABNORMAL ECG WHEN COMPARED WITH ECG OF 14-FEB-2018 09:30, NO SIGNIFICANT CHANGE WAS FOUND Confirmed by OLGA PATEL MD ([id number]) on 04/15/2018 10:26:53 AM Referred By: Confirmed By:OLGA PATEL MD
--- NOTE | 2018-04-15 10:39 | PN ---
Progress Note, Physician Chief Complaint: Ms Lua says she is feeling better today. Says she is not having chest pain. No sob or n/v. - Current Medication List Current Medications: Active Medications Allopurinol (Zyloprim -) [address] [facility] Last Admin: 04/15/18 09:28 Dose: 200 mg Amlodipine Besylate (Norvasc -) [address] [facility] Last Admin: 04/15/18 09:20 Dose: 10 mg Aspirin (Asa -) [address] [facility] Last Admin: 04/15/18 09:20 Dose: 325 mg Atorvastatin Calcium (Lipitor -) [address] [facility] Last Admin: 04/14/18 22:15 Dose: 40 mg Calcium Carbonate/Cholecalciferol (Os-Pedro 500+D -) [address] [facility] Last Admin: 04/15/18 09:20 Dose: 1 tab Cholecalciferol (Vitamin D3 -) 1,[address] [facility] Last Admin: 04/15/18 09:20 Dose: 1,000 unit Levothyroxine Sodium (Synthroid -) 25 mcg PO DAILY@0700 [facility] Last Admin: 04/15/18 07:48 Dose: 25 mcg Metoprolol Succinate (Toprol Xl -) [address] [facility] Last Admin: 04/15/18 09:20 Dose: 100 mg Multivitamins/Minerals/Vitamin C (Tab-A-Vit -) [address] [facility] Last Admin: 04/15/18 09:20 Dose: 1 tab Non-Formulary Medication (Guar Gum [Benefiber]) [address] [facility] Torsemide (Demadex -) [address] [facility] Last Admin: 04/15/18 09:20 Dose: 20 mg - Objective Vital Signs: Vital Signs Temperature 36.6 C 04/15/18 09:37 Pulse Rate 64 04/15/18 09:37 Respiratory Rate 16 04/15/18 09:37 Blood Pressure 145/57 04/15/18 09:37 O2 Sat by Pulse Oximetry (%) 96 04/15/18 09:37 Constitutional: Yes: Well Nourished, No Distress, Calm Cardiovascular: Yes: Regular Rate and Rhythm. No: Gallop, Murmur, Rub Respiratory: Yes: Regular, CTA Bilaterally. No: Rales, Rhonchi, Wheezes Gastrointestinal: Yes: Normal Bowel Sounds, Soft. No: Distention, Tenderness Extremities: Yes: WNL Edema: No Labs: CBC, BMP 04/14/18 17:50 04/15/18 05:55 Problem List - Problems (1) Chest pain Assessment/Plan: -currently resolved -cardiology consulted and will see -continue to trend troponin -continue current management Code(s): R07.9 - CHEST PAIN, UNSPECIFIED Qualifiers: Chest pain type: unspecified Qualified Code(s): R07.9 - Chest pain, unspecified (2) Elevated troponin Assessment/Plan: -slightly elevated in setting of CKD -cardiology to evaluate -recent stress test as an outpatient, unsure of results Code(s): R74.8 - ABNORMAL LEVELS OF OTHER SERUM ENZYMES (3) CHF (congestive heart failure) Assessment/Plan: -continue demadex Code(s): I50.9 - HEART FAILURE, UNSPECIFIED Qualifiers: Heart failure type: combined systolic and diastolic Heart failure chronicity: chronic Qualified Code(s): I50.42 - Chronic combined systolic ( congestive) and diastolic (congestive) heart failure (4) CKD (chronic kidney disease) Assessment/Plan: -nephrology following -hold on fluids at this time Code(s): N18.9 - CHRONIC KIDNEY DISEASE, UNSPECIFIED Qualifiers: Chronic kidney disease stage: stage 4 (severe) Qualified Code(s): N18.4 - Chronic kidney disease, stage 4 (severe) (5) HLD (hyperlipidemia) Assessment/Plan: -continue lipitor Code(s): E78.5 - HYPERLIPIDEMIA, UNSPECIFIED Qualifiers: Hyperlipidemia type: pure hypercholesterolemia Qualified Code(s): E78.00 - Pure hypercholesterolemia, unspecified; E78.0 - Pure hypercholesterolemia (6) HTN (hypertension) Assessment/Plan: -continue current management Code(s): I10 - ESSENTIAL (PRIMARY) HYPERTENSION Qualifiers: Hypertension type: essential hypertension Qualified Code(s): I10 - Essential (primary) hypertension (7) Hypothyroidism Assessment/Plan: -continue synthroid Code(s): E03.9 - HYPOTHYROIDISM, UNSPECIFIED Qualifiers: Hypothyroidism type: unspecified Qualified Code(s): E03.9 - Hypothyroidism , unspecified (8) Pleural effusion Assessment/Plan: -continue diuresis Code(s): J90 - PLEURAL EFFUSION, NOT ELSEWHERE CLASSIFIED
--- NOTE | 2018-04-15 10:43 | CON.CARD ---
Consult Consult Specialty:: Cardiology Referred by:: Walker Padilla MD Reason for Consultation:: Chest pain - History of Present Illness Chief Complaint: Chest pain History of Present Illness: 88 y/o woman h/o CAD s/p BMS LAD 11/22/1996, DM, HTN, hyperlipidemia, systolic dysfunction LVEF 41%, hypothyroidism, remote history PAF->SR [id number] on no ac, CKD, last saw Dr. Ruiz 04/05/2018 presented with chest pain, dyspnea and dependent edema similar to presentation in February 2018, but denies near or true syncope, palpitations, orthopnea, PND, diet or medication indiscretion. Recent Travel: None PAST MEDICAL HISTORY: DM CKD (renal atrophy) DAGOBERTO DJD HLD HTN Breast Ca (no Chemo, no RT) Depression PAST SURGICAL HISTORY: R- partial mastectomy Social History: Smoking: Never Alcohol: None Drugs: None - History Source History Provided By: Patient Limitations to Obtaining History: No Limitations - Past Medical History Cardio/Vascular: Yes: CAD (s/p stents around 20 years ago ), CHF, HTN, Hyperlipdemia Renal/: Yes: Other (1 working kidney due to ? renal atrophy ) Endocrine: Yes: Diabetes Mellitus - Past Surgical History Past Surgical History: Yes: Mastectomy (partial R sided ) - Alcohol/Substance Use Hx Alcohol Use: No History of Substance Use: reports: None - Smoking History Smoking history: Never smoked Have you smoked in the past 12 months: No Aproximately how many cigarettes per day: 0 - Social History Usual Living Arrangement: Alone ADL: Independent Home Medications - Allergies Allergies/Adverse Reactions: Allergies Allergy/AdvReac Type Severity Reaction Status Date / Time metronidazole [From Flagyl] Allergy Severe Swelling Verified 02/13/18 17:02 - Home Medications Home Medications: Ambulatory Orders Allopurinol [Zyloprim -] 200 mg PO DAILY 03/19/14 Amlodipine Besylate [Norvasc -] 5 mg PO BID 03/19/14 Aspirin [ASA -] 325 mg PO DAILY 03/19/14 Atorvastatin Ca [Lipitor] 40 mg PO HS 03/19/14 Cholecalciferol (Vitamin D3) [Vitamin D3] 1,000 unit PO DAILY 03/19/14 Metoprolol Succinate [Toprol XL -] 100 mg PO HS 03/19/14 Multivitamins [Multivit ([facility] Formulary)] 1 tab PO DAILY 03/19/14 Guar Gum [Benefiber] 1 each PO BID #0 packet 05/21/14 Calcium Carbonate/Vitamin D3 [Calcium 500-Vit D3 200 Caplet] 1 each PO DAILY 06/23 Levothyroxine [Synthroid -] 25 mcg PO DAILY 02/13/18 Torsemide [Demadex -] 20 mg PO DAILY #30 tablet 02/21/18 Review of Systems - Review of Systems Cardiovascular: reports: Chest Pain, Shortness of Breath Vital Signs: Vital Signs Temperature 97.8 F 04/15/18 09:37 Pulse Rate 64 04/15/18 09:37 Respiratory Rate 16 04/15/18 09:37 Blood Pressure 145/57 04/15/18 09:37 O2 Sat by Pulse Oximetry (%) 96 04/15/18 09:37 Constitutional: Yes: No Distress, Calm Neck: Yes: Supple Respiratory: Yes: Regular, Diminished, On Nasal O2 Gastrointestinal: Yes: Normal Bowel Sounds, Soft Cardiovascular: Yes: Regular Rate and Rhythm JVD: No Carotid Bruit: No Heart Sounds: Yes: S1, S2 Murmur: Yes: Systolic Murmur, Grade 1 Edema: No - Other Data Labs, Other Data: CBC, BMP 04/14/18 17:50 04/15/18 05:55 Troponin, BNP 04/14/18 04/14/18 04/15/18 17:50 22:40 05:55 Troponin I 0.06 H 0.06 H 0.08 H B-Natriuretic Peptide 89412.78 H Troponin, BNP 04/14/18 04/14/18 04/15/18 17:50 22:40 05:55 Troponin I 0.06 H 0.06 H 0.08 H B-Natriuretic Peptide 87152.78 H NSR @ 68 LAD, LBBB similar to previous seen 04/05/2018 Ejection Fraction %: LVEF > or = 40 % Imaging - Results Chest X-ray: Report Reviewed (NAD) Problem List - Problems (1) Demand ischemia Code(s): I24.8 - OTHER FORMS OF ACUTE ISCHEMIC HEART DISEASE (2) Acute on chronic systolic and diastolic heart failure, NYHA class 3 Code(s): I50.43 - ACUTE ON CHRONIC COMBINED SYSTOLIC AND DIASTOLIC HRT FAIL (3) CKD (chronic kidney disease) Code(s): N18.9 - CHRONIC KIDNEY DISEASE, UNSPECIFIED Qualifiers: Chronic kidney disease stage: stage 4 (severe) Qualified Code(s): N18.4 - Chronic kidney disease, stage 4 (severe) (4) Diabetes mellitus Code(s): E11.9 - TYPE 2 DIABETES MELLITUS WITHOUT COMPLICATIONS Qualifiers: Diabetes mellitus type: type 2 Diabetes mellitus complication status: with kidney complications Diabetes mellitus complication detail: with chronic kidney disease Chronic kidney disease stage: stage 4 (severe) (5) HLD (hyperlipidemia) Code(s): E78.5 - HYPERLIPIDEMIA, UNSPECIFIED Qualifiers: Hyperlipidemia type: pure hypercholesterolemia Qualified Code(s): E78.00 - Pure hypercholesterolemia, unspecified; E78.0 - Pure hypercholesterolemia (6) HTN (hypertension) Code(s): I10 - ESSENTIAL (PRIMARY) HYPERTENSION Qualifiers: Hypertension type: essential hypertension Qualified Code(s): I10 - Essential (primary) hypertension (7) Hypothyroidism Code(s): E03.9 - HYPOTHYROIDISM, UNSPECIFIED Qualifiers: Hypothyroidism type: unspecified Qualified Code(s): E03.9 - Hypothyroidism , unspecified Assessment/Plan Lexiscan MPI: 04/03/2018 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 Acute on chronic diastolic/systolic failure 2. 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 HTN/HCVD 4. Hyperlipidemia 5. Type 2 DM 6. Hypothyroidism 7. CAD, demand ischemia 8. Hyperuricemia 9. Remote h/o PAF->SR [id number] on no anticoagulation therapy P: 1. Trend trops to document peak, replete K 2. Continue Demadex 20 qd with monitor renal function and electrolytes 3. Discussed with renal, will continue to hold ARB given low eGFR, will try BiDil instead with uptitration as tolerated 4. D/c Norvasc, continue ASA 325 qd, Lipitor 40 qhs, Toprol XL 100qd 5. DVT and GI prophylaxis 6. F/u with Dr. Ruiz upon d/c [phone]
[2018-04-15] MEDS ORDERED: POTASSIUM CHLORIDE TABS 20 MEQ TABLET.ER (FP) PO ONE ×2 (11:41→12:46)
--- NOTE | 2018-04-15 12:28 | CONSULT ---
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 Pt reports feeling better now. Has been on Hyzaar as outpatient. On Torsemide daily. No flank pain, changes in urine output, N/V/D, Abd pain. Denies any NSAID use. No hematuira, dysuria. S/p recent stress test as outpatient. PMhx: as above Allergies: NKDA Family Hx: NC Social Hx: No T/A/D ROS: as per HPI, all other pertinent ros negative Home Medications Medication Instructions Recorded Allopurinol [Zyloprim -] 200 mg PO DAILY 03/19/14 Amlodipine Besylate [Norvasc -] 5 mg PO BID 03/19/14 Aspirin [ASA -] 325 mg PO DAILY 03/19/14 Atorvastatin Ca [Lipitor] 40 mg PO HS 03/19/14 Cholecalciferol (Vitamin D3) 1,000 unit PO DAILY 03/19/14 [Vitamin D3] Metoprolol Succinate [Toprol XL -] 100 mg PO HS 03/19/14 Multivitamins [Multivit ([facility] 1 tab PO DAILY 03/19/14 Formulary)] Guar Gum [Benefiber] 1 each PO BID #0 packet 05/21/14 Calcium Carbonate/Vitamin D3 1 each PO DAILY 02/13/18 [Calcium 500-Vit D3 200 Caplet] Levothyroxine [Synthroid -] 25 mcg PO DAILY 02/13/18 Torsemide [Demadex -] 20 mg PO DAILY #30 tablet 02/21/18 Vital Signs Temperature 97.8 F 04/15/18 09:37 Pulse Rate 64 04/15/18 09:37 Respiratory Rate 16 04/15/18 09:37 Blood Pressure 145/57 04/15/18 09:37 O2 Sat by Pulse Oximetry (%) 96 04/15/18 09:37 NAD awake and alert Neck supple, no JVD RRR, No M/R CTA no rales or wheeze soft NT/ND trace to 1+ LE edema, no clubbing or cyanosis no bladder distension no focal neurologic defects CBC, BMP 04/14/18 17:50 04/15/18 05:55 Current Medications Allopurinol (Zyloprim -) 200 mg PO DAILY [facility] Last Admin: 04/15/18 09:28 Dose: 200 mg Aspirin (Asa -) 325 mg PO DAILY [facility] Last Admin: 04/15/18 09:20 Dose: 325 mg Atorvastatin Calcium (Lipitor -) 40 mg PO HS [facility] Last Admin: 04/14/18 22:15 Dose: 40 mg Calcium Carbonate/Cholecalciferol (Os-Pedro 500+D -) 1 tab PO DAILY [facility] Last Admin: 04/15/18 09:20 Dose: 1 tab Cholecalciferol (Vitamin D3 -) 1,000 unit PO DAILY [facility] Last Admin: 04/15/18 09:20 Dose: 1,000 unit Hydralazine HCl (Apresoline -) 10 mg PO BID [facility] Isosorbide Mononitrate (Imdur -) 30 mg PO DAILY [facility] Levothyroxine Sodium (Synthroid -) 25 mcg PO DAILY@0700 [facility] Last Admin: 04/15/18 07:48 Dose: 25 mcg Metoprolol Succinate (Toprol Xl -) 100 mg PO DAILY [facility] Last Admin: 04/15/18 09:20 Dose: 100 mg Multivitamins/Minerals/Vitamin C (Tab-A-Vit -) 1 tab PO DAILY [facility] Last Admin: 04/15/18 09:20 Dose: 1 tab Non-Formulary Medication (Guar Gum [Benefiber]) 1 each PO BID [facility] Torsemide (Demadex -) 20 mg PO DAILY [facility] Last Admin: 04/15/18 09:20 Dose: 20 mg 88 year old woman with 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 #ISELA on CKD #CKD Stage 4 secondary to diabetic nephropathy #Chest pain r/o ACS #CAD #CHF #Hypertension #DM Cr remains slightly elevated from baseline no acute indication for [employer] at the present time Would continue Torsemide 20mg daily, and monitor for edema no EDGAR/ARB given low eGFR Cardiac enzymes negative x 3 Cardiology following Pt appears evolemic at the present time BP slightly above goal, trend for now Avoid nephrotoxins, IV contrasts Dose all meds for CrCl less then 15 Thank you Miguel Ramirez DO 88 y/o woman h/o CAD s/p BMS LAD 11/22/1996, DM, HTN, hyperlipidemia, systolic dysfunction LVEF 41%, hypothyroidism, remote history PAF->SR [id number] on no ac, CKD
[2018-04-15] MEDS: ISOSORBIDE MONONITRATE 30 MG TAB.SR.24H (FP) PO SCH (12:41)
[2018-04-15] MEDS ORDERED: ISOSORBIDE MONONITRATE 60 MG TAB.SR.24H (FP) PO ONE (12:47)
[2018-04-15] MEDS ORDERED: ATORVASTATIN CA 40 MG TABLET (FP) ONE (22:23)
[2018-04-15] MEDS: ATORVASTATIN CA 40 MG TABLET (FP) PO SCH (22:24)
[2018-04-15] MEDS: hydrALAZINE HCL 10 MG TABLET PO SCH (22:39)
[2018-04-15 22:57] VITALS: BMI 34.4
[2018-04-16] MEDS: LEVOTHYROXINE NA 25 MCG TABLET (FP) PO SCH (06:13)
[2018-04-16 07:12] LABS: BASO % 1.1 % (0-2.0); HEMATOCRIT 28.7 % (32.4-45.2); HEMOGLOBIN 9.5 GM/dL (10.7-15.3); LYMPH % 22.4 % (8-40); MCH 32.1 pg (25.7-33.7); MEAN CELL VOLUME 97.1 fl (80-96); MEAN PLT VOLUME 10.3 fl (7.5-11.1); MONO % 8.2 % (3.8-10.2); NEUT % 64.3 % (42.8-82.8); PLATELET COUNT 148 K/MM3 (134-434); RBC 2.95 M/mm3 (3.60-5.2); RDW 14.4 % (11.6-15.6); WHITE BLOOD COUNT 7.4 K/mm3 (4.0-10.0)
--- NOTE | 2018-04-16 07:54 | PN ---
Progress Note (short form) - Note Progress Note: Chief complaint: Events noted, notes reviewed, complaining of persistent dyspnea , orthopnea but denies any paroxysmal nocturnal dyspnea, denies any chest discomfort, complaining of generalized weakness History of Present Illness: Seen and examined on telemetry. Events noted, notes reviewed, complaining of persistent dyspnea, orthopnea but denies any paroxysmal nocturnal dyspnea, denies any chest discomfort, complaining of generalized weakness Lexiscan MPI: 04/03/2018 Myopathic myocardium with diffuse moderate global HK LVEF 41% as noted Echocardiography dated 02/15/2018 revealed moderately decreased LV function, left atrial dilatation, mild-moderate MR, moderate TR with RVSP 30-40 mmHg, mild -moderate AR and small pericardial effusion Medical therapy currently includes: Current Medications Allopurinol (Zyloprim -) 200 mg PO DAILY [facility] Last Admin: 04/15/18 09:28 Dose: 200 mg Aspirin (Asa -) 325 mg PO DAILY [facility] Last Admin: 04/15/18 09:20 Dose: 325 mg Atorvastatin Calcium (Lipitor -) 40 mg PO HS [facility] Last Admin: 04/15/18 22:24 Dose: 40 mg Calcium Carbonate/Cholecalciferol (Os-Pedro 500+D -) 1 tab PO DAILY [facility] Last Admin: 04/15/18 09:20 Dose: 1 tab Cholecalciferol (Vitamin D3 -) 1,000 unit PO DAILY [facility] Last Admin: 04/15/18 09:20 Dose: 1,000 unit Hydralazine HCl (Apresoline -) 10 mg PO BID [facility] Last Admin: 04/15/18 22:39 Dose: 10 mg Isosorbide Mononitrate (Imdur -) 30 mg PO DAILY [facility] Last Admin: 04/15/18 12:41 Dose: 30 mg Levothyroxine Sodium (Synthroid -) 25 mcg PO DAILY@0700 [facility] Last Admin: 04/16/18 06:13 Dose: 25 mcg Metoprolol Succinate (Toprol Xl -) 100 mg PO DAILY [facility] Last Admin: 04/15/18 09:20 Dose: 100 mg Multivitamins/Minerals/Vitamin C (Tab-A-Vit -) 1 tab PO DAILY [facility] Last Admin: 04/15/18 09:20 Dose: 1 tab Torsemide (Demadex -) 20 mg PO DAILY [facility] Last Admin: 04/15/18 09:20 Dose: 20 mg Review of Systems - Review of Systems Constitutional: denies: Chills or Fever Cardiovascular: as noted above Gastrointestinal: denies: Nausea, Vomiting, Diarrhea, Constipation or Abdominal Pain Genitourinary: No symptoms reported Neurological: No symptoms reported Physical Examination: Vital Signs: Last Vital Signs Temp Pulse Resp BP Pulse Ox 98.2 F 59 L 14 116/42 96 04/15/18 22:42 04/15/18 22:42 04/16/18 00:17 04/15/18 22:42 04/16/18 00:17 Intake & Output 04/13/18 04/14/18 04/15/18 04/16/18 23:59 23:59 23:59 23:59 Intake Total 120 Balance 120 Weight 171 lb 170 lb 13.732 oz 169 lb 6.4 oz Neck: Supple negative JVD no bruit appreciated Heart: S1 and S2 Regular Rate and Rhythm Lungs: Diminished Breath Sounds at the Bases Bilateral Scattered Rhonchi Abdomen: Soft benign normoactive bowel sounds Extremities: Negative edema Lab Data: Blood test pending ASSESSMENT: 1. Acute on chronic class II [place] [employer] classification left ventricular failure related to systolic/diastolic left ventricular dysfunction 2. Coronary artery disease post percutaneous coronary intervention stenting angina pectoris with evidence of demand ischemia 3. remote history of paroxysmal atrial fibrillation currently on no anticoagulation therapy, [id number] score of 6 4. Hypertensive cardiovascular disease 5. Diabetes mellitus 6. Hypercholesterolemia 7. Acute on CKD stage 4 with proteinuria secondary to diabetic nephropathy 8. Hypothyroidism 9. Hyperuricemia PLAN: 1. Continue Toprol-XL 2. Ideally patient should be on an EDGAR inhibitor or angiotensin receptor maribell therapy but to be deferred in view of the above-noted acute on chronic kidney disease 3. Continue Hydralazine to be substituted by BiDil upon discharge 4. Continue nitrates/Imdur to be substituted by BiDil upon discharge 5. Continue Demadex but administer intravenously considering the above-noted clinical presentation 6. Eventually patient will require right and left heart cardiac catheterization coronary angiography for further evaluation of the above-noted systolic left ventricular dysfunction but to be deferred at this point in view of her progressive renal insufficiency, to be further discussed with nephrology service Above was reviewed in detail with the patient Tari Ruiz M.D.
[2018-04-16 07:55] LABS: ANION GAP 10 MMOL/L (8-16); BLOOD UREA NITROGEN 71 mg/dL (7-18); CALCIUM 8.7 mg/dL (8.5-10.1); CHLORIDE 107 mmol/L (98-107); CO2 26 mmol/L (21-32); GLUCOSE,RANDOM 104 mg/dL (74-106); POTASSIUM 3.5 mmol/L (3.5-5.1); SODIUM 143 mmol/L (136-145)
[2018-04-16 08:05] LABS: CREATININE 3.4 mg/dL (0.55-1.02); PHOSPHOROUS 3.8 mg/dL (2.5-4.9)
[2018-04-16] MEDS: TORSEMIDE 20 MG TABLET (FP) PO SCH (09:14)
[2018-04-16] MEDS: ISOSORBIDE MONONITRATE 30 MG TAB.SR.24H (FP) PO SCH (09:14)
[2018-04-16] MEDS: CHOLECALCIFEROL (VITAMIN D3) 1,000 UNIT TABLET (FP) PO SCH (09:14)
[2018-04-16] MEDS: ALLOPURINOL 100 MG TABLET (FP) PO SCH (09:14)
[2018-04-16] MEDS: hydrALAZINE HCL 10 MG TABLET PO SCH ×2 (09:14→21:43)
[2018-04-16] MEDS: ASPIRIN 325 MG TABLET PO SCH (09:15)
[2018-04-16] MEDS: CALCIUM 500MG/VIT-D 200 UNITS COMBO TABLET (FP) PO SCH (09:15)
[2018-04-16] MEDS: MULTIVITAMINS (DAILY MVI) TABLET (FP) PO SCH (09:15)
--- NOTE | 2018-04-16 11:41 | PN ---
Progress Note (short form) - Note Progress Note: Dr. Sweet/JOCELYNN Tao to document today. Awaiting trend of Troponin. Renal function Stage 4-5 but stable.
--- NOTE | 2018-04-16 13:56 | PN ---
Progress Note (short form) - Note Progress Note: Renal follow up for ISELA on CKD Pt seen and examined at the bedside reports feeling of incomplete inspiration and some discomfort of Right chest no cough, fever, chills, CP, abd pain, N/V/D Vital Signs Temperature 97.5 F L 04/16/18 10:00 Pulse Rate 68 04/16/18 10:00 Respiratory Rate 18 04/16/18 10:00 Blood Pressure 139/56 04/16/18 10:00 O2 Sat by Pulse Oximetry (%) 91 L 04/16/18 08:00 Intake & Output 04/13/18 04/14/18 04/15/18 04/16/18 23:59 23:59 23:59 23:59 Intake Total 120 Balance 120 Weight 77.564 kg 77.5 kg 76.839 kg NAD awake and alert RRR + rales RLL soft NT/ND Trace LE edema CBC, BMP 04/16/18 06:30 04/16/18 06:30 Current Medications Allopurinol (Zyloprim -) 200 mg PO DAILY [facility] Last Admin: 04/16/18 09:14 Dose: 200 mg Aspirin (Asa -) 325 mg PO DAILY [facility] Last Admin: 04/16/18 09:15 Dose: 325 mg Atorvastatin Calcium (Lipitor -) 40 mg PO HS [facility] Last Admin: 04/15/18 22:24 Dose: 40 mg Calcium Carbonate/Cholecalciferol (Os-Pedro 500+D -) 1 tab PO DAILY [facility] Last Admin: 04/16/18 09:15 Dose: 1 tab Cholecalciferol (Vitamin D3 -) 1,000 unit PO DAILY [facility] Last Admin: 04/16/18 09:14 Dose: 1,000 unit Hydralazine HCl (Apresoline -) 10 mg PO BID [facility] Last Admin: 04/16/18 09:14 Dose: 10 mg Isosorbide Mononitrate (Imdur -) 30 mg PO DAILY [facility] Last Admin: 04/16/18 09:14 Dose: 30 mg Levothyroxine Sodium (Synthroid -) 25 mcg PO DAILY@0700 [facility] Last Admin: 04/16/18 06:13 Dose: 25 mcg Metoprolol Succinate (Toprol Xl -) 100 mg PO DAILY [facility] Last Admin: 04/16/18 09:15 Dose: 100 mg Multivitamins/Minerals/Vitamin C (Tab-A-Vit -) 1 tab PO DAILY [facility] Last Admin: 04/16/18 09:15 Dose: 1 tab Torsemide (Demadex -) 20 mg PO DAILY [facility] Last Admin: 04/16/18 09:14 Dose: 20 mg 88 year old woman with 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 #ISELA on CKD #CKD Stage 4 secondary to diabetic nephropathy #Chest pain r/o ACS #CAD #CHF #Hypertension #DM Renal function unchanged no acute indication for COREMAKER given CXR findings of increasing RLL effusion may warrent IV diuretics, will discuss with cardiology Cardiac enzymes negative thus far BP acceptable Avoid nephrotoxins, IV contrasts Dose all meds for CrCl less then 15 Thank you Miguel Ramirez DO
[2018-04-16 14:01] LABS: ARTERIAL BLD GAS O2 SATURATION 94.2 % (90-98.9); ARTERIAL BLOOD GAS BASE EXCESS 2.6 meq/l (-2-2); ARTERIAL BLOOD GAS PCO2 37.4 mmHg (35-45); ARTERIAL BLOOD GAS PO2 64.3 mmHg (68-100); ARTERIAL BLOOD GAS pH 7.46 (7.35-7.45)
[2018-04-16 14:03] LABS: ALLENS TEST POSITIVE
--- NOTE | 2018-04-16 14:13 | PN ---
Progress Note, Physician Chief Complaint: Ms Lua today complains of dry mouth. However nurse says she was complaining about shortness of breath. At first patient denied but on further questioning she says it is similar to the chest pressure she came in with. She does not says shortness of breath though. Denies n/v. - Current Medication List Current Medications: Active Medications Allopurinol (Zyloprim -) 200 mg PO DAILY [facility] Last Admin: 04/16/18 09:14 Dose: 200 mg Aspirin (Asa -) 325 mg PO DAILY [facility] Last Admin: 04/16/18 09:15 Dose: 325 mg Atorvastatin Calcium (Lipitor -) 40 mg PO HS [facility] Last Admin: 04/15/18 22:24 Dose: 40 mg Calcium Carbonate/Cholecalciferol (Os-Pedro 500+D -) 1 tab PO DAILY [facility] Last Admin: 04/16/18 09:15 Dose: 1 tab Cholecalciferol (Vitamin D3 -) 1,000 unit PO DAILY [facility] Last Admin: 04/16/18 09:14 Dose: 1,000 unit Hydralazine HCl (Apresoline -) 10 mg PO BID [facility] Last Admin: 04/16/18 09:14 Dose: 10 mg Isosorbide Mononitrate (Imdur -) 30 mg PO DAILY [facility] Last Admin: 04/16/18 09:14 Dose: 30 mg Levothyroxine Sodium (Synthroid -) 25 mcg PO DAILY@0700 [facility] Last Admin: 04/16/18 06:13 Dose: 25 mcg Metoprolol Succinate (Toprol Xl -) 100 mg PO DAILY [facility] Last Admin: 04/16/18 09:15 Dose: 100 mg Multivitamins/Minerals/Vitamin C (Tab-A-Vit -) 1 tab PO DAILY [facility] Last Admin: 04/16/18 09:15 Dose: 1 tab Torsemide (Demadex -) 20 mg PO DAILY [facility] Last Admin: 04/16/18 09:14 Dose: 20 mg - Objective Vital Signs: Vital Signs Temperature 36.4 C L 04/16/18 10:00 Pulse Rate 68 04/16/18 10:00 Respiratory Rate 18 04/16/18 10:00 Blood Pressure 139/56 04/16/18 10:00 O2 Sat by Pulse Oximetry (%) 91 L 04/16/18 08:00 Constitutional: Yes: Well Nourished, No Distress, Calm Cardiovascular: Yes: Regular Rate and Rhythm. No: Gallop, Murmur, Rub Respiratory: Yes: Regular, On Nasal O2, Rhonchi (bibasilar, faint). No: CTA Bilaterally, Rales, Wheezes Gastrointestinal: Yes: Normal Bowel Sounds, Soft. No: Distention, Tenderness Extremities: Yes: WNL Edema: No Labs: CBC, BMP 04/16/18 06:30 04/16/18 06:30 Problem List - Problems (1) CHF (congestive heart failure) Code(s): I50.9 - HEART FAILURE, UNSPECIFIED Qualifiers: Heart failure type: combined systolic and diastolic Heart failure chronicity: acute on chronic Qualified Code(s): I50.43 - Acute on chronic combined systolic (congestive) and diastolic (congestive) heart failure (2) Pleural effusion Code(s): J90 - PLEURAL EFFUSION, NOT ELSEWHERE CLASSIFIED (3) Chest pain Code(s): R07.9 - CHEST PAIN, UNSPECIFIED Qualifiers: Chest pain type: unspecified Qualified Code(s): R07.9 - Chest pain, unspecified (4) Elevated troponin Code(s): R74.8 - ABNORMAL LEVELS OF OTHER SERUM ENZYMES (5) CKD (chronic kidney disease) Code(s): N18.9 - CHRONIC KIDNEY DISEASE, UNSPECIFIED Qualifiers: Chronic kidney disease stage: stage 4 (severe) Qualified Code(s): N18.4 - Chronic kidney disease, stage 4 (severe) (6) HLD (hyperlipidemia) Code(s): E78.5 - HYPERLIPIDEMIA, UNSPECIFIED Qualifiers: Hyperlipidemia type: pure hypercholesterolemia Qualified Code(s): E78.00 - Pure hypercholesterolemia, unspecified; E78.0 - Pure hypercholesterolemia (7) HTN (hypertension) Code(s): I10 - ESSENTIAL (PRIMARY) HYPERTENSION Qualifiers: Hypertension type: essential hypertension Qualified Code(s): I10 - Essential (primary) hypertension (8) Hypothyroidism Code(s): E03.9 - HYPOTHYROIDISM, UNSPECIFIED Qualifiers: Hypothyroidism type: unspecified Qualified Code(s): E03.9 - Hypothyroidism , unspecified (9) ISELA (acute kidney injury) Code(s): N17.9 - ACUTE KIDNEY FAILURE, UNSPECIFIED Assessment/Plan (1) Chest pain Assessment/Plan: -suspect chest pressure is more CHF overload than ACS -cardiology following and note reviewed -continue current management Code(s): R07.9 - CHEST PAIN, UNSPECIFIED Qualifiers: Chest pain type: unspecified Qualified Code(s): R07.9 - Chest pain, unspecified (2) Elevated troponin Assessment/Plan: -? stress induced versus CKD -decreasing Code(s): R74.8 - ABNORMAL LEVELS OF OTHER SERUM ENZYMES (3) CHF (congestive heart failure) Assessment/Plan: -continue demadex currently -however becoming symptomatic again -also chest x-ray shows increasing pleural effusion -? if needs IV diuretics -defer to cardiology Code(s): I50.9 - HEART FAILURE, UNSPECIFIED Qualifiers: Heart failure type: combined systolic and diastolic Heart failure chronicity: chronic Qualified Code(s): I50.42 - Chronic combined systolic ( congestive) and diastolic (congestive) heart failure (4) ISELA on CKD Assessment/Plan: -unchanged -nephrology following -may need IV diuretics Code(s): N18.9 - CHRONIC KIDNEY DISEASE, UNSPECIFIED Qualifiers: Chronic kidney disease stage: stage 4 (severe) Qualified Code(s): N18.4 - Chronic kidney disease, stage 4 (severe) (5) HLD (hyperlipidemia) Assessment/Plan: -continue lipitor Code(s): E78.5 - HYPERLIPIDEMIA, UNSPECIFIED Qualifiers: Hyperlipidemia type: pure hypercholesterolemia Qualified Code(s): E78.00 - Pure hypercholesterolemia, unspecified; E78.0 - Pure hypercholesterolemia (6) HTN (hypertension) Assessment/Plan: -continue current management Code(s): I10 - ESSENTIAL (PRIMARY) HYPERTENSION Qualifiers: Hypertension type: essential hypertension Qualified Code(s): I10 - Essential (primary) hypertension (7) Hypothyroidism Assessment/Plan: -continue synthroid Code(s): E03.9 - HYPOTHYROIDISM, UNSPECIFIED Qualifiers: Hypothyroidism type: unspecified Qualified Code(s): E03.9 - Hypothyroidism , unspecified (8) Pleural effusion Assessment/Plan: -continue diuresis -will hold on throacentesis at this time but if continues to worsen will consider Code(s): J90 - PLEURAL EFFUSION, NOT ELSEWHERE CLASSIFIED
[2018-04-16] MEDS ORDERED: FUROSEMIDE 100 MG/10 ML INJECTABLE VIAL IVPB ONE (14:17)
[2018-04-16] MEDS: ATORVASTATIN CA 40 MG TABLET (FP) PO SCH (21:43)
[2018-04-17] MEDS: LEVOTHYROXINE NA 25 MCG TABLET (FP) PO SCH (06:23)
[2018-04-17 06:27] LABS: BASO % 1.4 % (0-2.0); EOS % 3.4 % (0-4.5); HEMATOCRIT 28.4 % (32.4-45.2); HEMOGLOBIN 9.4 GM/dL (10.7-15.3); LYMPH % 23.5 % (8-40); MCH 32.2 pg (25.7-33.7); MCHC 33.1 g/dl (32.0-36.0); MEAN CELL VOLUME 97.4 fl (80-96); MEAN PLT VOLUME 10.4 fl (7.5-11.1); MONO % 7.8 % (3.8-10.2); NEUT % 63.9 % (42.8-82.8); PLATELET COUNT 150 K/MM3 (134-434); RBC 2.92 M/mm3 (3.60-5.2); RDW 14.2 % (11.6-15.6); WHITE BLOOD COUNT 7.4 K/mm3 (4.0-10.0)
[2018-04-17 06:57] LABS: ANION GAP 8 MMOL/L (8-16); BLOOD UREA NITROGEN 68 mg/dL (7-18); CALCIUM 8.8 mg/dL (8.5-10.1); CHLORIDE 106 mmol/L (98-107); CO2 30 mmol/L (21-32); CREATININE 3.4 mg/dL (0.55-1.02); GLUCOSE,RANDOM 108 mg/dL (74-106); PHOSPHOROUS 4.1 mg/dL (2.5-4.9); POTASSIUM 3.5 mmol/L (3.5-5.1); SODIUM 144 mmol/L (136-145)
--- NOTE | 2018-04-17 08:51 | PN ---
Progress Note (short form) - Note Progress Note: Dr. Sweet to document today. Patient had a good diuresis from Lasix IV 80 mg X1. Pleural Effusion on repeat CXR.
[2018-04-17] MEDS: CALCIUM 500MG/VIT-D 200 UNITS COMBO TABLET (FP) PO SCH (09:20)
[2018-04-17] MEDS: MULTIVITAMINS (DAILY MVI) TABLET (FP) PO SCH (09:21)
[2018-04-17] MEDS: hydrALAZINE HCL 10 MG TABLET PO SCH (09:21)
[2018-04-17] MEDS: ISOSORBIDE MONONITRATE 30 MG TAB.SR.24H (FP) PO SCH (09:21)
[2018-04-17] MEDS: ASPIRIN 325 MG TABLET PO SCH (09:21)
[2018-04-17] MEDS: ALLOPURINOL 100 MG TABLET (FP) PO SCH (09:21)
[2018-04-17] MEDS: TORSEMIDE 20 MG TABLET (FP) PO SCH (09:21)
[2018-04-17] MEDS: CHOLECALCIFEROL (VITAMIN D3) 1,000 UNIT TABLET (FP) PO SCH (09:21)
--- NOTE | 2018-04-17 12:12 | PN ---
Progress Note, Physician Chief Complaint: Ms Lua says she is feeling better than she was yesterday but not at baseline. She says she is not short of breath but feels like it is about to occur again. No cp or n/v. - Current Medication List Current Medications: Active Medications Allopurinol (Zyloprim -) 200 mg PO DAILY [facility] Last Admin: 04/17/18 09:21 Dose: 200 mg Aspirin (Asa -) 325 mg PO DAILY [facility] Last Admin: 04/17/18 09:21 Dose: 325 mg Atorvastatin Calcium (Lipitor -) 40 mg PO HS [facility] Last Admin: 04/16/18 21:43 Dose: 40 mg Calcium Carbonate/Cholecalciferol (Os-Pedro 500+D -) 1 tab PO DAILY [facility] Last Admin: 04/17/18 09:20 Dose: 1 tab Cholecalciferol (Vitamin D3 -) 1,000 unit PO DAILY [facility] Last Admin: 04/17/18 09:21 Dose: 1,000 unit Hydralazine HCl (Apresoline -) 10 mg PO BID [facility] Last Admin: 04/17/18 09:21 Dose: 10 mg Isosorbide Mononitrate (Imdur -) 30 mg PO DAILY [facility] Last Admin: 04/17/18 09:21 Dose: 30 mg Levothyroxine Sodium (Synthroid -) 25 mcg PO DAILY@0700 [facility] Last Admin: 04/17/18 06:23 Dose: 25 mcg Metoprolol Succinate (Toprol Xl -) 100 mg PO DAILY [facility] Last Admin: 04/17/18 09:21 Dose: 100 mg Multivitamins/Minerals/Vitamin C (Tab-A-Vit -) 1 tab PO DAILY [facility] Last Admin: 04/17/18 09:21 Dose: 1 tab Torsemide (Demadex -) 20 mg PO DAILY [facility] Last Admin: 04/17/18 09:21 Dose: 20 mg - Objective Vital Signs: Vital Signs Temperature 36.8 C 04/17/18 09:00 Pulse Rate 66 04/17/18 09:00 Respiratory Rate 22 04/17/18 09:00 Blood Pressure 139/56 04/17/18 09:00 O2 Sat by Pulse Oximetry (%) 96 04/17/18 00:00 Constitutional: Yes: Well Nourished, No Distress, Calm Cardiovascular: Yes: Regular Rate and Rhythm. No: Gallop, Murmur, Rub Respiratory: Yes: Regular, On Nasal O2, Rhonchi (R base). No: CTA Bilaterally, Rales, Wheezes Gastrointestinal: Yes: Normal Bowel Sounds, Soft. No: Distention, Tenderness Extremities: Yes: WNL Edema: No Labs: CBC, BMP 04/17/18 06:00 04/17/18 06:00 Problem List - Problems (1) CHF (congestive heart failure) Code(s): I50.9 - HEART FAILURE, UNSPECIFIED Qualifiers: Heart failure type: combined systolic and diastolic Heart failure chronicity: acute on chronic Qualified Code(s): I50.43 - Acute on chronic combined systolic (congestive) and diastolic (congestive) heart failure (2) Pleural effusion Code(s): J90 - PLEURAL EFFUSION, NOT ELSEWHERE CLASSIFIED (3) Chest pain Code(s): R07.9 - CHEST PAIN, UNSPECIFIED Qualifiers: Chest pain type: unspecified Qualified Code(s): R07.9 - Chest pain, unspecified (4) Elevated troponin Code(s): R74.8 - ABNORMAL LEVELS OF OTHER SERUM ENZYMES (5) CKD (chronic kidney disease) Code(s): N18.9 - CHRONIC KIDNEY DISEASE, UNSPECIFIED Qualifiers: Chronic kidney disease stage: stage 4 (severe) Qualified Code(s): N18.4 - Chronic kidney disease, stage 4 (severe) (6) HLD (hyperlipidemia) Code(s): E78.5 - HYPERLIPIDEMIA, UNSPECIFIED Qualifiers: Hyperlipidemia type: pure hypercholesterolemia Qualified Code(s): E78.00 - Pure hypercholesterolemia, unspecified; E78.0 - Pure hypercholesterolemia (7) HTN (hypertension) Code(s): I10 - ESSENTIAL (PRIMARY) HYPERTENSION Qualifiers: Hypertension type: essential hypertension Qualified Code(s): I10 - Essential (primary) hypertension (8) Hypothyroidism Code(s): E03.9 - HYPOTHYROIDISM, UNSPECIFIED Qualifiers: Hypothyroidism type: unspecified Qualified Code(s): E03.9 - Hypothyroidism , unspecified (9) ISELA (acute kidney injury) Code(s): N17.9 - ACUTE KIDNEY FAILURE, UNSPECIFIED Assessment/Plan (1) Chest pain Assessment/Plan: -currently resolved -secondary to CHF exacerbation -cardiology following Code(s): R07.9 - CHEST PAIN, UNSPECIFIED Qualifiers: Chest pain type: unspecified Qualified Code(s): R07.9 - Chest pain, unspecified (2) Elevated troponin Assessment/Plan: -peaked -cardiology following Code(s): R74.8 - ABNORMAL LEVELS OF OTHER SERUM ENZYMES (3) CHF (congestive heart failure) Assessment/Plan: -received IV lasix yesterday -diuresed well -? if still needs further IV diuresis today since symptomatic -cardiology to evaluate -continue torsemide currently Code(s): I50.9 - HEART FAILURE, UNSPECIFIED Qualifiers: Heart failure type: combined systolic and diastolic Heart failure chronicity: chronic Qualified Code(s): I50.42 - Chronic combined systolic ( congestive) and diastolic (congestive) heart failure (4) ISELA on CKD Assessment/Plan: -unchanged -nephrology following -received IV diuretics yesterday -defer to cardiology if needs further IV lasix Code(s): N18.9 - CHRONIC KIDNEY DISEASE, UNSPECIFIED Qualifiers: Chronic kidney disease stage: stage 4 (severe) Qualified Code(s): N18.4 - Chronic kidney disease, stage 4 (severe) (5) HLD (hyperlipidemia) Assessment/Plan: -continue lipitor Code(s): E78.5 - HYPERLIPIDEMIA, UNSPECIFIED Qualifiers: Hyperlipidemia type: pure hypercholesterolemia Qualified Code(s): E78.00 - Pure hypercholesterolemia, unspecified; E78.0 - Pure hypercholesterolemia (6) HTN (hypertension) Assessment/Plan: -continue current management Code(s): I10 - ESSENTIAL (PRIMARY) HYPERTENSION Qualifiers: Hypertension type: essential hypertension Qualified Code(s): I10 - Essential (primary) hypertension (7) Hypothyroidism Assessment/Plan: -continue synthroid Code(s): E03.9 - HYPOTHYROIDISM, UNSPECIFIED Qualifiers: Hypothyroidism type: unspecified Qualified Code(s): E03.9 - Hypothyroidism , unspecified (8) Pleural effusion Assessment/Plan: -continue diuresis -improving on exam Code(s): J90 - PLEURAL EFFUSION, NOT ELSEWHERE CLASSIFIED
--- NOTE | 2018-04-17 12:59 | PN ---
Progress Note, Physician History of Present Illness: Chest pain, dyspnea and dependent edema improved with IV diuresis. - Current Medication List Current Medications: Active Medications Allopurinol (Zyloprim -) 200 mg PO DAILY [facility] Last Admin: 04/17/18 09:21 Dose: 200 mg Aspirin (Asa -) 325 mg PO DAILY [facility] Last Admin: 04/17/18 09:21 Dose: 325 mg Atorvastatin Calcium (Lipitor -) 40 mg PO HS [facility] Last Admin: 04/16/18 21:43 Dose: 40 mg Calcium Carbonate/Cholecalciferol (Os-Pedro 500+D -) 1 tab PO DAILY [facility] Last Admin: 04/17/18 09:20 Dose: 1 tab Cholecalciferol (Vitamin D3 -) 1,000 unit PO DAILY [facility] Last Admin: 04/17/18 09:21 Dose: 1,000 unit Heparin Sodium (Porcine) (Heparin -) 5,000 unit SQ TID [facility] Hydralazine HCl (Apresoline -) 10 mg PO BID [facility] Last Admin: 04/17/18 09:21 Dose: 10 mg Isosorbide Mononitrate (Imdur -) 30 mg PO DAILY [facility] Last Admin: 04/17/18 09:21 Dose: 30 mg Levothyroxine Sodium (Synthroid -) 25 mcg PO DAILY@0700 [facility] Last Admin: 04/17/18 06:23 Dose: 25 mcg Metoprolol Succinate (Toprol Xl -) 100 mg PO DAILY [facility] Last Admin: 04/17/18 09:21 Dose: 100 mg Multivitamins/Minerals/Vitamin C (Tab-A-Vit -) 1 tab PO DAILY [facility] Last Admin: 04/17/18 09:21 Dose: 1 tab Torsemide (Demadex -) 20 mg PO DAILY [facility] Last Admin: 04/17/18 09:21 Dose: 20 mg - Objective Vital Signs: Vital Signs Temperature 98.3 F 04/17/18 09:00 Pulse Rate 66 04/17/18 09:00 Respiratory Rate 22 04/17/18 09:00 Blood Pressure 139/56 04/17/18 09:00 O2 Sat by Pulse Oximetry (%) 96 04/17/18 00:00 Constitutional: Yes: No Distress, Calm, Thin Neck: Yes: Supple Cardiovascular: Yes: Regular Rate and Rhythm Respiratory: Yes: Regular, Diminished, On Nasal O2 Gastrointestinal: Yes: Normal Bowel Sounds, Soft Edema: No Labs: CBC, BMP 04/17/18 06:00 04/17/18 06:00 - ....Imaging Chest X-ray: Report Reviewed (Increased right pleural effusion) Problem List - Problems (1) Demand ischemia Code(s): I24.8 - OTHER FORMS OF ACUTE ISCHEMIC HEART DISEASE (2) Acute on chronic systolic and diastolic heart failure, NYHA class 3 Code(s): I50.43 - ACUTE ON CHRONIC COMBINED SYSTOLIC AND DIASTOLIC HRT FAIL (3) CKD (chronic kidney disease) Code(s): N18.9 - CHRONIC KIDNEY DISEASE, UNSPECIFIED Qualifiers: Chronic kidney disease stage: stage 4 (severe) Qualified Code(s): N18.4 - Chronic kidney disease, stage 4 (severe) (4) Diabetes mellitus Code(s): E11.9 - TYPE 2 DIABETES MELLITUS WITHOUT COMPLICATIONS Qualifiers: Diabetes mellitus type: type 2 Diabetes mellitus complication status: with kidney complications Diabetes mellitus complication detail: with chronic kidney disease Chronic kidney disease stage: stage 4 (severe) (5) HLD (hyperlipidemia) Code(s): E78.5 - HYPERLIPIDEMIA, UNSPECIFIED Qualifiers: Hyperlipidemia type: pure hypercholesterolemia Qualified Code(s): E78.00 - Pure hypercholesterolemia, unspecified; E78.0 - Pure hypercholesterolemia (6) HTN (hypertension) Code(s): I10 - ESSENTIAL (PRIMARY) HYPERTENSION Qualifiers: Hypertension type: essential hypertension Qualified Code(s): I10 - Essential (primary) hypertension (7) Hypothyroidism Code(s): E03.9 - HYPOTHYROIDISM, UNSPECIFIED Qualifiers: Hypothyroidism type: unspecified Qualified Code(s): E03.9 - Hypothyroidism , unspecified Assessment/Plan Lexiscan MPI: 04/03/2018 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 Acute on chronic diastolic/systolic failure and pleural effusions 2. 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 HTN/HCVD 4. Hyperlipidemia 5. Type 2 DM 6. Hypothyroidism 7. CAD s/p PCI, demand ischemia 8. Hyperuricemia 9. Remote h/o PAF->SR [id number] on no anticoagulation therapy 10. Anemia of CKD P: 1. Trops have plateaued 2. IV diuresis per renal with monitor renal function and electrolytes 3. Discussed with renal, will continue to hold ARB given low eGFR, will try BiDil instead with uptitration as tolerated 4. D/c Norvasc, continue ASA 325 qd, Lipitor 40 qhs, Toprol XL 100qd 5. DVT and GI prophylaxis 6. F/u with Dr. Ruiz upon d/c [phone] 7. Eventually patient will require right and left heart cardiac catheterization coronary angiography for further evaluation of the above-noted systolic left ventricular dysfunction but to be deferred at this point in view of her progressive renal insufficiency, to be further discussed with nephrology service
--- NOTE | 2018-04-17 13:38 | PN ---
Progress Note (short form) - Note Progress Note: Renal follow up for ISELA on CKD Pt seen and examined at the bedside complains of back pain urine output improved s/p IV lasix sob improved no cp, abd pain, N/V/D appetite is poor Vital Signs Temperature 98.3 F 04/17/18 09:00 Pulse Rate 66 04/17/18 09:00 Respiratory Rate 22 04/17/18 09:00 Blood Pressure 139/56 04/17/18 09:00 O2 Sat by Pulse Oximetry (%) 96 04/17/18 00:00 Intake & Output 04/14/18 04/15/18 04/16/18 04/17/18 23:59 23:59 23:59 23:59 Intake Total 120 250 0 Output Total 300 Balance 120 -50 0 Weight 77.564 kg 77.5 kg 76.839 kg NAD awake and alert RRR + rales RLL soft NT/ND Trace LE edema CBC, BMP 04/17/18 06:00 04/17/18 06:00 Current Medications Allopurinol (Zyloprim -) 200 mg PO DAILY [facility] Last Admin: 04/17/18 09:21 Dose: 200 mg Aspirin (Asa -) 325 mg PO DAILY [facility] Last Admin: 04/17/18 09:21 Dose: 325 mg Atorvastatin Calcium (Lipitor -) 40 mg PO HS [facility] Last Admin: 04/16/18 21:43 Dose: 40 mg Calcium Carbonate/Cholecalciferol (Os-Pedro 500+D -) 1 tab PO DAILY [facility] Last Admin: 04/17/18 09:20 Dose: 1 tab Cholecalciferol (Vitamin D3 -) 1,000 unit PO DAILY [facility] Last Admin: 04/17/18 09:21 Dose: 1,000 unit Furosemide (Lasix Injection -) 40 mg IVPUSH ONCE ONE Stop: 04/17/18 13:05 Furosemide (Lasix Injection -) 40 mg IVPUSH BID@0600,1400 [facility] Heparin Sodium (Porcine) (Heparin -) 5,000 unit SQ TID [facility] Hydralazine HCl (Apresoline -) 25 mg PO BID [facility] Isosorbide Mononitrate (Imdur -) 30 mg PO DAILY [facility] Last Admin: 04/17/18 09:21 Dose: 30 mg Levothyroxine Sodium (Synthroid -) 25 mcg PO DAILY@0700 [facility] Last Admin: 04/17/18 06:23 Dose: 25 mcg Metoprolol Succinate (Toprol Xl -) 100 mg PO DAILY [facility] Last Admin: 04/17/18 09:21 Dose: 100 mg Multivitamins/Minerals/Vitamin C (Tab-A-Vit -) 1 tab PO DAILY [facility] Last Admin: 04/17/18 09:21 Dose: 1 tab 88 year old woman with 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
[2018-04-17] MEDS ORDERED: FUROSEMIDE 40 MG/4 ML INJECTABLE VIAL IVPUSH ONE (14:00)
[2018-04-17] MEDS: HEPARIN NA (PORCINE) 5,000 UNITS/ML 1ML VIAL SQ SCH ×2 (14:48→21:21)
[2018-04-17] MEDS: hydrALAZINE HCL 25 MG TABLET (FP) PO SCH (21:21)
[2018-04-17] MEDS: ATORVASTATIN CA 40 MG TABLET (FP) PO SCH (21:22)
[2018-04-18 06:22] LABS: BASO % 1.8 % (0-2.0); EOS % 4.5 % (0-4.5); HEMATOCRIT 29.4 % (32.4-45.2); HEMOGLOBIN 9.7 GM/dL (10.7-15.3); LYMPH % 25.2 % (8-40); MCH 32.2 pg (25.7-33.7); MCHC 33.1 g/dl (32.0-36.0); MEAN CELL VOLUME 97.1 fl (80-96); MEAN PLT VOLUME 10.1 fl (7.5-11.1); MONO % 8.8 % (3.8-10.2); NEUT % 59.7 % (42.8-82.8); PLATELET COUNT 146 K/MM3 (134-434); RBC 3.03 M/mm3 (3.60-5.2); RDW 14.3 % (11.6-15.6); WHITE BLOOD COUNT 6.9 K/mm3 (4.0-10.0)
[2018-04-18] MEDS: LEVOTHYROXINE NA 25 MCG TABLET (FP) PO SCH (06:45)
[2018-04-18] MEDS: FUROSEMIDE 40 MG/4 ML INJECTABLE VIAL IVPUSH SCH ×2 (06:45→13:59)
[2018-04-18] MEDS: HEPARIN NA (PORCINE) 5,000 UNITS/ML 1ML VIAL SQ SCH ×3 (06:45→22:03)
[2018-04-18 06:58] LABS: ANION GAP 9 MMOL/L (8-16); BLOOD UREA NITROGEN 69 mg/dL (7-18); CALCIUM 8.7 mg/dL (8.5-10.1); CHLORIDE 104 mmol/L (98-107); CO2 30 mmol/L (21-32); CREATININE 3.6 mg/dL (0.55-1.02); GLUCOSE,RANDOM 94 mg/dL (74-106); MAGNESIUM 1.9 mg/dL (1.8-2.4); PHOSPHOROUS 4.3 mg/dL (2.5-4.9); POTASSIUM 3.4 mmol/L (3.5-5.1); SODIUM 143 mmol/L (136-145)
--- NOTE | 2018-04-18 08:28 | PN ---
Progress Note (short form) - Note Progress Note: Dr. Sweet to document today. Continues with improved diuresis without significant changes in renal lab. Less SOB; no complaints of pain.
[2018-04-18] MEDS: ISOSORBIDE MONONITRATE 30 MG TAB.SR.24H (FP) PO SCH (09:22)
[2018-04-18] MEDS: ALLOPURINOL 100 MG TABLET (FP) PO SCH (09:22)
[2018-04-18] MEDS: ASPIRIN 325 MG TABLET PO SCH (09:22)
[2018-04-18] MEDS: MULTIVITAMINS (DAILY MVI) TABLET (FP) PO SCH (09:22)
[2018-04-18] MEDS: hydrALAZINE HCL 25 MG TABLET (FP) PO SCH ×2 (09:22→22:03)
[2018-04-18] MEDS: CALCIUM 500MG/VIT-D 200 UNITS COMBO TABLET (FP) PO SCH (09:22)
[2018-04-18] MEDS: CHOLECALCIFEROL (VITAMIN D3) 1,000 UNIT TABLET (FP) PO SCH (09:22)
--- NOTE | 2018-04-18 10:44 | PN ---
Progress Note, Physician History of Present Illness: Chest pain, dyspnea and dependent edema improved with IV diuresis. - Current Medication List Current Medications: Active Medications Allopurinol (Zyloprim -) 200 mg PO DAILY [facility] Last Admin: 04/18/18 09:22 Dose: 200 mg Aspirin (Asa -) 325 mg PO DAILY [facility] Last Admin: 04/18/18 09:22 Dose: 325 mg Atorvastatin Calcium (Lipitor -) 40 mg PO HS [facility] Last Admin: 04/17/18 21:22 Dose: 40 mg Calcium Carbonate/Cholecalciferol (Os-Pedro 500+D -) 1 tab PO DAILY [facility] Last Admin: 04/18/18 09:22 Dose: 1 tab Cholecalciferol (Vitamin D3 -) 1,000 unit PO DAILY [facility] Last Admin: 04/18/18 09:22 Dose: 1,000 unit Furosemide (Lasix Injection -) 40 mg IVPUSH BID@0600,1400 [facility] Last Admin: 04/18/18 06:45 Dose: 40 mg Heparin Sodium (Porcine) (Heparin -) 5,000 unit SQ TID [facility] Last Admin: 04/18/18 06:45 Dose: 5,000 unit Hydralazine HCl (Apresoline -) 25 mg PO BID [facility] Last Admin: 04/18/18 09:22 Dose: 25 mg Isosorbide Mononitrate (Imdur -) 30 mg PO DAILY [facility] Last Admin: 04/18/18 09:22 Dose: 30 mg Levothyroxine Sodium (Synthroid -) 25 mcg PO DAILY@0700 [facility] Last Admin: 04/18/18 06:45 Dose: 25 mcg Metoprolol Succinate (Toprol Xl -) 100 mg PO DAILY [facility] Last Admin: 04/18/18 09:22 Dose: 100 mg Multivitamins/Minerals/Vitamin C (Tab-A-Vit -) 1 tab PO DAILY [facility] Last Admin: 04/18/18 09:22 Dose: 1 tab - Objective Vital Signs: Vital Signs Temperature 98 F 04/18/18 10:00 Pulse Rate 73 04/18/18 10:00 Respiratory Rate 18 04/18/18 10:00 Blood Pressure 129/56 04/18/18 10:00 O2 Sat by Pulse Oximetry (%) 96 04/18/18 09:00 Constitutional: Yes: No Distress, Calm, Thin Neck: Yes: Supple Cardiovascular: Yes: Regular Rate and Rhythm Respiratory: Yes: Regular, Diminished Gastrointestinal: Yes: Normal Bowel Sounds, Soft Edema: No Labs: CBC, BMP 04/18/18 06:00 04/18/18 06:00 Problem List - Problems (1) Demand ischemia Code(s): I24.8 - OTHER FORMS OF ACUTE ISCHEMIC HEART DISEASE (2) Acute on chronic systolic and diastolic heart failure, NYHA class 3 Code(s): I50.43 - ACUTE ON CHRONIC COMBINED SYSTOLIC AND DIASTOLIC HRT FAIL (3) CKD (chronic kidney disease) Code(s): N18.9 - CHRONIC KIDNEY DISEASE, UNSPECIFIED Qualifiers: Chronic kidney disease stage: stage 4 (severe) Qualified Code(s): N18.4 - Chronic kidney disease, stage 4 (severe) (4) Diabetes mellitus Code(s): E11.9 - TYPE 2 DIABETES MELLITUS WITHOUT COMPLICATIONS Qualifiers: Diabetes mellitus type: type 2 Diabetes mellitus complication status: with kidney complications Diabetes mellitus complication detail: with chronic kidney disease Chronic kidney disease stage: stage 4 (severe) (5) HLD (hyperlipidemia) Code(s): E78.5 - HYPERLIPIDEMIA, UNSPECIFIED Qualifiers: Hyperlipidemia type: pure hypercholesterolemia Qualified Code(s): E78.00 - Pure hypercholesterolemia, unspecified; E78.0 - Pure hypercholesterolemia (6) HTN (hypertension) Code(s): I10 - ESSENTIAL (PRIMARY) HYPERTENSION Qualifiers: Hypertension type: essential hypertension Qualified Code(s): I10 - Essential (primary) hypertension (7) Hypothyroidism Code(s): E03.9 - HYPOTHYROIDISM, UNSPECIFIED Qualifiers: Hypothyroidism type: unspecified Qualified Code(s): E03.9 - Hypothyroidism , unspecified Assessment/Plan Lexiscan MPI: 04/03/2018 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 Acute on chronic diastolic/systolic failure and pleural effusions improving 2. 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 HTN/HCVD 4. Hyperlipidemia 5. Type 2 DM 6. Hypothyroidism 7. CAD s/p PCI, demand ischemia 8. Hyperuricemia 9. Remote h/o PAF->SR [id number] on no anticoagulation therapy 10. Anemia of CKD P: 1. Resume oral diuresis with monitor renal function and electrolytes, replete K as you are 2. Will continue to hold ARB given low eGFR, placed on BiDil instead with uptitration as tolerated 3. Continue ASA 325 qd, Lipitor 40 qhs, Toprol XL 100qd 4. DVT and GI prophylaxis 5. F/u with Dr. Ruiz upon d/c [phone] 6. Eventually patient will require right and left heart cardiac catheterization coronary angiography for further evaluation of the above-noted systolic left ventricular dysfunction but to be deferred at this point in view of her progressive renal insufficiency, to be further discussed with nephrology service
[2018-04-18] MEDS: POTASSIUM CHLORIDE TABS 20 MEQ TABLET.ER (FP) PO SCH (11:13)
--- NOTE | 2018-04-18 12:11 | PN ---
Progress Note, Physician Chief Complaint: Ms Lua states she is feeling much better than she has this entire stay and is close to baseline. Says her shortness of breath is almost resolved. Denies cp , sob, n/v. - Current Medication List Current Medications: Active Medications Allopurinol (Zyloprim -) 200 mg PO DAILY [facility] Last Admin: 04/18/18 09:22 Dose: 200 mg Aspirin (Asa -) 325 mg PO DAILY [facility] Last Admin: 04/18/18 09:22 Dose: 325 mg Atorvastatin Calcium (Lipitor -) 40 mg PO HS [facility] Last Admin: 04/17/18 21:22 Dose: 40 mg Calcium Carbonate/Cholecalciferol (Os-Pedro 500+D -) 1 tab PO DAILY [facility] Last Admin: 04/18/18 09:22 Dose: 1 tab Cholecalciferol (Vitamin D3 -) 1,000 unit PO DAILY [facility] Last Admin: 04/18/18 09:22 Dose: 1,000 unit Furosemide (Lasix Injection -) 40 mg IVPUSH BID@0600,1400 [facility] Stop: 04/18/18 23:59 Last Admin: 04/18/18 06:45 Dose: 40 mg Heparin Sodium (Porcine) (Heparin -) 5,000 unit SQ TID [facility] Last Admin: 04/18/18 06:45 Dose: 5,000 unit Hydralazine HCl (Apresoline -) 25 mg PO BID [facility] Last Admin: 04/18/18 09:22 Dose: 25 mg Isosorbide Mononitrate (Imdur -) 30 mg PO DAILY [facility] Last Admin: 04/18/18 09:22 Dose: 30 mg Levothyroxine Sodium (Synthroid -) 25 mcg PO DAILY@0700 [facility] Last Admin: 04/18/18 06:45 Dose: 25 mcg Metoprolol Succinate (Toprol Xl -) 100 mg PO DAILY [facility] Last Admin: 04/18/18 09:22 Dose: 100 mg Multivitamins/Minerals/Vitamin C (Tab-A-Vit -) 1 tab PO DAILY [facility] Last Admin: 04/18/18 09:22 Dose: 1 tab Potassium Chloride (K-Dur -) 40 meq PO DAILY [facility] Last Admin: 04/18/18 11:13 Dose: 40 meq Torsemide (Demadex -) 20 mg PO DAILY [facility] - Objective Vital Signs: Vital Signs Temperature 36.6 C 04/18/18 10:00 Pulse Rate 73 04/18/18 10:00 Respiratory Rate 18 04/18/18 10:00 Blood Pressure 129/56 04/18/18 10:00 O2 Sat by Pulse Oximetry (%) 96 04/18/18 09:00 Constitutional: Yes: Well Nourished, No Distress, Calm Cardiovascular: Yes: Regular Rate and Rhythm. No: Gallop, Murmur, Rub Respiratory: Yes: Regular, Rhonchi (r base, improving). No: CTA Bilaterally, On Nasal O2, Rales, Wheezes Gastrointestinal: Yes: Normal Bowel Sounds, Soft. No: Distention, Tenderness Extremities: Yes: WNL Edema: No Labs: CBC, BMP 04/18/18 06:00 04/18/18 06:00 Problem List - Problems (1) CHF (congestive heart failure) Code(s): I50.9 - HEART FAILURE, UNSPECIFIED Qualifiers: Heart failure type: combined systolic and diastolic Heart failure chronicity: acute on chronic Qualified Code(s): I50.43 - Acute on chronic combined systolic (congestive) and diastolic (congestive) heart failure (2) Pleural effusion Code(s): J90 - PLEURAL EFFUSION, NOT ELSEWHERE CLASSIFIED (3) Chest pain Code(s): R07.9 - CHEST PAIN, UNSPECIFIED Qualifiers: Chest pain type: unspecified Qualified Code(s): R07.9 - Chest pain, unspecified (4) Elevated troponin Code(s): R74.8 - ABNORMAL LEVELS OF OTHER SERUM ENZYMES (5) CKD (chronic kidney disease) Code(s): N18.9 - CHRONIC KIDNEY DISEASE, UNSPECIFIED Qualifiers: Chronic kidney disease stage: stage 4 (severe) Qualified Code(s): N18.4 - Chronic kidney disease, stage 4 (severe) (6) HLD (hyperlipidemia) Code(s): E78.5 - HYPERLIPIDEMIA, UNSPECIFIED Qualifiers: Hyperlipidemia type: pure hypercholesterolemia Qualified Code(s): E78.00 - Pure hypercholesterolemia, unspecified; E78.0 - Pure hypercholesterolemia (7) HTN (hypertension) Code(s): I10 - ESSENTIAL (PRIMARY) HYPERTENSION Qualifiers: Hypertension type: essential hypertension Qualified Code(s): I10 - Essential (primary) hypertension (8) Hypothyroidism Code(s): E03.9 - HYPOTHYROIDISM, UNSPECIFIED Qualifiers: Hypothyroidism type: unspecified Qualified Code(s): E03.9 - Hypothyroidism , unspecified (9) ISELA (acute kidney injury) Code(s): N17.9 - ACUTE KIDNEY FAILURE, UNSPECIFIED Assessment/Plan (1) Chest pain Assessment/Plan: -currently resolved -secondary to CHF exacerbation -cardiology following Code(s): R07.9 - CHEST PAIN, UNSPECIFIED Qualifiers: Chest pain type: unspecified Qualified Code(s): R07.9 - Chest pain, unspecified (2) Elevated troponin Assessment/Plan: -peaked -cardiology following Code(s): R74.8 - ABNORMAL LEVELS OF OTHER SERUM ENZYMES (3) CHF (congestive heart failure) Assessment/Plan: -case d/w cardiology -received IV lasix yesterday and is currently on lasix 40mg bid -also started on hydralazine and imdur -much improved today, patient asking when can go home -to resume torsemide today and stop IV lasix -possible discharge tomorrow Code(s): I50.9 - HEART FAILURE, UNSPECIFIED Qualifiers: Heart failure type: combined systolic and diastolic Heart failure chronicity: chronic Qualified Code(s): I50.42 - Chronic combined systolic ( congestive) and diastolic (congestive) heart failure (4) ISELA on CKD Assessment/Plan: -unchanged -nephrology following Code(s): N18.9 - CHRONIC KIDNEY DISEASE, UNSPECIFIED Qualifiers: Chronic kidney disease stage: stage 4 (severe) Qualified Code(s): N18.4 - Chronic kidney disease, stage 4 (severe) (5) HLD (hyperlipidemia) Assessment/Plan: -continue lipitor Code(s): E78.5 - HYPERLIPIDEMIA, UNSPECIFIED Qualifiers: Hyperlipidemia type: pure hypercholesterolemia Qualified Code(s): E78.00 - Pure hypercholesterolemia, unspecified; E78.0 - Pure hypercholesterolemia (6) HTN (hypertension) Assessment/Plan: -continue current management Code(s): I10 - ESSENTIAL (PRIMARY) HYPERTENSION Qualifiers: Hypertension type: essential hypertension Qualified Code(s): I10 - Essential (primary) hypertension (7) Hypothyroidism Assessment/Plan: -continue synthroid Code(s): E03.9 - HYPOTHYROIDISM, UNSPECIFIED Qualifiers: Hypothyroidism type: unspecified Qualified Code(s): E03.9 - Hypothyroidism , unspecified (8) Pleural effusion Assessment/Plan: -continue diuresis -improving on exam Code(s): J90 - PLEURAL EFFUSION, NOT ELSEWHERE CLASSIFIED Dispo -plan for discharge tomorrow
--- NOTE | 2018-04-18 16:11 | PN ---
Progress Note (short form) - Note Progress Note: Renal follow up for ISELA on CKD Pt seen and examined at the bedside complains of GERD symptoms s/p oral potassium supplament this am sob is improved, edema is improved no CP, abd pain, N/V/D Vital Signs Temperature 98 F 04/18/18 10:00 Pulse Rate 73 04/18/18 10:00 Respiratory Rate 18 04/18/18 10:00 Blood Pressure 129/56 04/18/18 10:00 O2 Sat by Pulse Oximetry (%) 96 04/18/18 09:00 Intake & Output 04/15/18 04/16/18 04/17/18 04/18/18 23:59 23:59 23:59 23:59 Intake Total 120 250 900 140 Output Total 300 480 600 Balance 120 -50 420 -460 Weight 77.5 kg 76.839 kg NAD awake and alert RRR + rales RLL soft NT/ND Trace LE edema CBC, BMP 04/18/18 06:00 04/18/18 06:00 Current Medications Allopurinol (Zyloprim -) 200 mg PO DAILY [facility] Last Admin: 04/18/18 09:22 Dose: 200 mg Aspirin (Asa -) 325 mg PO DAILY [facility] Last Admin: 04/18/18 09:22 Dose: 325 mg Atorvastatin Calcium (Lipitor -) 40 mg PO HS [facility] Last Admin: 04/17/18 21:22 Dose: 40 mg Calcium Carbonate/Cholecalciferol (Os-Pedro 500+D -) 1 tab PO DAILY [facility] Last Admin: 04/18/18 09:22 Dose: 1 tab Cholecalciferol (Vitamin D3 -) 1,000 unit PO DAILY [facility] Last Admin: 04/18/18 09:22 Dose: 1,000 unit Furosemide (Lasix Injection -) 40 mg IVPUSH BID@0600,1400 [facility] Stop: 04/18/18 23:59 Last Admin: 04/18/18 13:59 Dose: 40 mg Heparin Sodium (Porcine) (Heparin -) 5,000 unit SQ TID [facility] Last Admin: 04/18/18 13:59 Dose: 5,000 unit Hydralazine HCl (Apresoline -) 25 mg PO BID [facility] Last Admin: 04/18/18 09:22 Dose: 25 mg Isosorbide Mononitrate (Imdur -) 30 mg PO DAILY [facility] Last Admin: 04/18/18 09:22 Dose: 30 mg Levothyroxine Sodium (Synthroid -) 25 mcg PO DAILY@0700 [facility] Last Admin: 04/18/18 06:45 Dose: 25 mcg Metoprolol Succinate (Toprol Xl -) 100 mg PO DAILY [facility] Last Admin: 04/18/18 09:22 Dose: 100 mg Multivitamins/Minerals/Vitamin C (Tab-A-Vit -) 1 tab PO DAILY [facility] Last Admin: 04/18/18 09:22 Dose: 1 tab Potassium Chloride (K-Dur -) 40 meq PO DAILY [facility] Last Admin: 04/18/18 11:13 Dose: 40 meq Torsemide (Demadex -) 20 mg PO DAILY [facility] 88 year old woman with 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
[2018-04-18] MEDS: PANTOPRAZOLE 40 MG TABLET (FP) PO SCH (16:46)
[2018-04-18] MEDS: ATORVASTATIN CA 40 MG TABLET (FP) PO SCH (22:03)
[2018-04-19] MEDS ORDERED: SIMETHICONE 80 MG TAB.CHEW (FP) PO PRN (05:20)
[2018-04-19] MEDS: HEPARIN NA (PORCINE) 5,000 UNITS/ML 1ML VIAL SQ SCH ×2 (05:38→14:03)
[2018-04-19] MEDS: LEVOTHYROXINE NA 25 MCG TABLET (FP) PO SCH (06:08)
[2018-04-19 06:28] LABS: BASO % 1.4 % (0-2.0); HEMATOCRIT 29.8 % (32.4-45.2); HEMOGLOBIN 9.9 GM/dL (10.7-15.3); LYMPH % 23.8 % (8-40); MCH 32.2 pg (25.7-33.7); MCHC 33.3 g/dl (32.0-36.0); MEAN CELL VOLUME 96.6 fl (80-96); MEAN PLT VOLUME 10.2 fl (7.5-11.1); MONO % 8.4 % (3.8-10.2); NEUT % 62.4 % (42.8-82.8); PLATELET COUNT 159 K/MM3 (134-434); RBC 3.09 M/mm3 (3.60-5.2); RDW 14.3 % (11.6-15.6); WHITE BLOOD COUNT 7.9 K/mm3 (4.0-10.0)
[2018-04-19 06:42] LABS: ANION GAP 11 MMOL/L (8-16); BLOOD UREA NITROGEN 68 mg/dL (7-18); CALCIUM 8.7 mg/dL (8.5-10.1); CHLORIDE 105 mmol/L (98-107); CO2 28 mmol/L (21-32); GLUCOSE,RANDOM 107 mg/dL (74-106); MAGNESIUM 2.1 mg/dL (1.8-2.4); POTASSIUM 3.9 mmol/L (3.5-5.1); SODIUM 144 mmol/L (136-145)
[2018-04-19 06:44] LABS: CREATININE 3.7 mg/dL (0.55-1.3)
[2018-04-19] MEDS: ALLOPURINOL 100 MG TABLET (FP) PO SCH (09:27)
[2018-04-19] MEDS: ASPIRIN 325 MG TABLET PO SCH (09:27)
[2018-04-19] MEDS: PANTOPRAZOLE 40 MG TABLET (FP) PO SCH (09:27)
[2018-04-19] MEDS: MULTIVITAMINS (DAILY MVI) TABLET (FP) PO SCH (09:27)
[2018-04-19] MEDS: hydrALAZINE HCL 25 MG TABLET (FP) PO SCH (09:28)
[2018-04-19] MEDS: CALCIUM 500MG/VIT-D 200 UNITS COMBO TABLET (FP) PO SCH (09:28)
[2018-04-19] MEDS: POTASSIUM CHLORIDE TABS 20 MEQ TABLET.ER (FP) PO SCH (09:28)
[2018-04-19] MEDS: CHOLECALCIFEROL (VITAMIN D3) 1,000 UNIT TABLET (FP) PO SCH (09:28)
[2018-04-19] MEDS: ISOSORBIDE MONONITRATE 30 MG TAB.SR.24H (FP) PO SCH (09:28)
--- NOTE | 2018-04-19 09:56 | PN ---
Progress Note (short form) - Note Progress Note: Dr. Sweet/JOCELYNN Sweet to document today. Suprapubic pain; Rectal exam: Negative.
[2018-04-19] MEDS ORDERED: TORSEMIDE 20 MG TABLET (FP) PO SCH (10:00)
--- NOTE | 2018-04-19 10:04 | PN ---
Progress Note, Physician Chief Complaint: Pt lying in bed in no acute distress. Reports she is not feeling well today, c/ o suprapubic pain. Denies any chest pain, sob, n/v/d, dysuria - Current Medication List Current Medications: Active Medications Allopurinol (Zyloprim -) 200 mg PO DAILY [facility] Last Admin: 04/19/18 09:27 Dose: 200 mg Aspirin (Asa -) 325 mg PO DAILY [facility] Last Admin: 04/19/18 09:27 Dose: 325 mg Atorvastatin Calcium (Lipitor -) 40 mg PO HS [facility] Last Admin: 04/18/18 22:03 Dose: 40 mg Calcium Carbonate/Cholecalciferol (Os-Pedro 500+D -) 1 tab PO DAILY [facility] Last Admin: 04/19/18 09:28 Dose: 1 tab Cholecalciferol (Vitamin D3 -) 1,000 unit PO DAILY [facility] Last Admin: 04/19/18 09:28 Dose: 1,000 unit Heparin Sodium (Porcine) (Heparin -) 5,000 unit SQ TID [facility] Last Admin: 04/19/18 05:38 Dose: 5,000 unit Hydralazine HCl (Apresoline -) 25 mg PO BID [facility] Last Admin: 04/19/18 09:28 Dose: 25 mg Isosorbide Mononitrate (Imdur -) 30 mg PO DAILY [facility] Last Admin: 04/19/18 09:28 Dose: 30 mg Levothyroxine Sodium (Synthroid -) 25 mcg PO DAILY@0700 [facility] Last Admin: 04/19/18 06:08 Dose: 25 mcg Metoprolol Succinate (Toprol Xl -) 100 mg PO DAILY [facility] Last Admin: 04/19/18 09:28 Dose: 100 mg Multivitamins/Minerals/Vitamin C (Tab-A-Vit -) 1 tab PO DAILY [facility] Last Admin: 04/19/18 09:27 Dose: 1 tab Pantoprazole Sodium (Protonix -) 40 mg PO DAILY [facility] Last Admin: 04/19/18 09:27 Dose: 40 mg Potassium Chloride (K-Dur -) 40 meq PO DAILY [facility] Last Admin: 04/19/18 09:28 Dose: 40 meq Simethicone (Mylicon -) 80 mg PO Q4H PRN PRN Reason: GAS Last Admin: 04/19/18 05:35 Dose: 80 mg Torsemide (Demadex -) 20 mg PO DAILY [facility] Last Admin: 04/19/18 09:27 Dose: 20 mg - Objective Vital Signs: Vital Signs Temperature 98.2 F 04/19/18 06:00 Pulse Rate 68 04/19/18 06:00 Respiratory Rate 20 04/19/18 06:00 Blood Pressure 122/51 04/19/18 06:00 O2 Sat by Pulse Oximetry (%) 97 04/18/18 20:40 Constitutional: Yes: Well Nourished, No Distress, Calm Neck: Yes: Tenderness Cardiovascular: No: Rub Respiratory: Yes: Regular, Diminished, Rhonchi (RLL). No: Accessory Muscle Use , SOB, Tachypnea, Wheezes Gastrointestinal: Yes: Normal Bowel Sounds, Soft, Abdomen, Obese, Tenderness ( suprapubic). No: Distention, Vomiting ...Rectal Exam: Yes: WNL Edema: No Neurological: Yes: WNL, Alert, Oriented Psychiatric: Yes: WNL, Alert, Oriented Labs: CBC, BMP 04/19/18 06:00 04/19/18 06:00 Assessment/Plan (1) Chest pain Assessment/Plan: resolved Code(s): R07.9 - CHEST PAIN, UNSPECIFIED Qualifiers: Chest pain type: unspecified Qualified Code(s): R07.9 - Chest pain, unspecified (2) Elevated troponin Assessment/Plan: peaked, cardiology following Code(s): R74.8 - ABNORMAL LEVELS OF OTHER SERUM ENZYMES (3) CHF (congestive heart failure) Assessment/Plan: improved transitioned to po torsemide cardiology following Code(s): I50.9 - HEART FAILURE, UNSPECIFIED Qualifiers: Heart failure type: combined systolic and diastolic Heart failure chronicity: chronic Qualified Code(s): I50.42 - Chronic combined systolic ( congestive) and diastolic (congestive) heart failure (4) ISELA on CKD Assessment/Plan: unchanged nephrology following Code(s): N18.9 - CHRONIC KIDNEY DISEASE, UNSPECIFIED Qualifiers: Chronic kidney disease stage: stage 4 (severe) Qualified Code(s): N18.4 - Chronic kidney disease, stage 4 (severe) (5) HLD (hyperlipidemia) Assessment/Plan: continue lipitor Code(s): E78.5 - HYPERLIPIDEMIA, UNSPECIFIED Qualifiers: Hyperlipidemia type: pure hypercholesterolemia Qualified Code(s): E78.00 - Pure hypercholesterolemia, unspecified; E78.0 - Pure hypercholesterolemia (6) HTN (hypertension) Assessment/Plan: controlled, continue current management Code(s): I10 - ESSENTIAL (PRIMARY) HYPERTENSION Qualifiers: Hypertension type: essential hypertension Qualified Code(s): I10 - Essential (primary) hypertension (7) Hypothyroidism Assessment/Plan: continue synthroid Code(s): E03.9 - HYPOTHYROIDISM, UNSPECIFIED Qualifiers: Hypothyroidism type: unspecified Qualified Code(s): E03.9 - Hypothyroidism , unspecified (8) Pleural effusion Assessment/Plan: improving 2/2 chf continue diuresis Code(s): J90 - PLEURAL EFFUSION, NOT ELSEWHERE CLASSIFIED (9) Suprapubic pain, acute Assessment/Plan: new onset of suprapubic pain, mild ttp upon assessments no difficulty in urination , reports constant feeling to defecate UA/UC ordered bladder/pelvic US ordered Code(s): R10.2 - PELVIC AND PERINEAL PAIN Dispo: Home, awaiting UA, bladder/pelvic US. Otherwise, pt stable
--- NOTE | 2018-04-19 10:11 | PN ---
Progress Note, Physician History of Present Illness: Chest pain, dyspnea and dependent edema improved with IV diuresis, now on oral diuretics, reports suprapubic discomfort, bladder U/S and UA drawn. - Current Medication List Current Medications: Active Medications Allopurinol (Zyloprim -) [address] [facility] Last Admin: 04/19/18 09:27 Dose: 200 mg Aspirin (Asa -) [address] [facility] Last Admin: 04/19/18 09:27 Dose: 325 mg Atorvastatin Calcium (Lipitor -) [address] [facility] Last Admin: 04/18/18 22:03 Dose: 40 mg Calcium Carbonate/Cholecalciferol (Os-Pedro 500+D -) [address] [facility] Last Admin: 04/19/18 09:28 Dose: 1 tab Cholecalciferol (Vitamin D3 -) 1,[address] [facility] Last Admin: 04/19/18 09:28 Dose: 1,000 unit Heparin Sodium (Porcine) (Heparin -) 5,[address] [facility] Last Admin: 04/19/18 05:38 Dose: 5,000 unit Hydralazine HCl (Apresoline -) [address] [facility] Last Admin: 04/19/18 09:28 Dose: 25 mg Isosorbide Mononitrate (Imdur -) [address] [facility] Last Admin: 04/19/18 09:28 Dose: 30 mg Levothyroxine Sodium (Synthroid -) 25 mcg PO DAILY@0700 [facility] Last Admin: 04/19/18 06:08 Dose: 25 mcg Metoprolol Succinate (Toprol Xl -) [address] [facility] Last Admin: 04/19/18 09:28 Dose: 100 mg Multivitamins/Minerals/Vitamin C (Tab-A-Vit -) [address] [facility] Last Admin: 04/19/18 09:27 Dose: 1 tab Pantoprazole Sodium (Protonix -) [address] [facility] Last Admin: 04/19/18 09:27 Dose: 40 mg Potassium Chloride (K-Dur -) [address] [facility] Last Admin: 04/19/18 09:28 Dose: 40 meq Simethicone (Mylicon -) 80 mg PO Q4H PRN PRN Reason: GAS Last Admin: 04/19/18 05:35 Dose: 80 mg Torsemide (Demadex -) [address] [facility] Last Admin: 04/19/18 09:27 Dose: 20 mg - Objective Vital Signs: Vital Signs Temperature 98.2 F 04/19/18 06:00 Pulse Rate 68 04/19/18 06:00 Respiratory Rate 20 04/19/18 06:00 Blood Pressure 122/51 04/19/18 06:00 O2 Sat by Pulse Oximetry (%) 97 04/18/18 20:40 Constitutional: Yes: No Distress, Calm, Thin Neck: Yes: Supple Cardiovascular: Yes: Regular Rate and Rhythm Respiratory: Yes: Regular, Diminished Gastrointestinal: Yes: Normal Bowel Sounds, Soft Edema: No Labs: CBC, BMP 04/19/18 06:00 04/19/18 06:00 Problem List - Problems (1) Demand ischemia Code(s): I24.8 - OTHER FORMS OF ACUTE ISCHEMIC HEART DISEASE (2) Acute on chronic systolic and diastolic heart failure, NYHA class 3 Code(s): I50.43 - ACUTE ON CHRONIC COMBINED SYSTOLIC AND DIASTOLIC HRT FAIL (3) CKD (chronic kidney disease) Code(s): N18.9 - CHRONIC KIDNEY DISEASE, UNSPECIFIED Qualifiers: Chronic kidney disease stage: stage 4 (severe) Qualified Code(s): N18.4 - Chronic kidney disease, stage 4 (severe) (4) Diabetes mellitus Code(s): E11.9 - TYPE 2 DIABETES MELLITUS WITHOUT COMPLICATIONS Qualifiers: Diabetes mellitus type: type 2 Diabetes mellitus complication status: with kidney complications Diabetes mellitus complication detail: with chronic kidney disease Chronic kidney disease stage: stage 4 (severe) (5) HLD (hyperlipidemia) Code(s): E78.5 - HYPERLIPIDEMIA, UNSPECIFIED Qualifiers: Hyperlipidemia type: pure hypercholesterolemia Qualified Code(s): E78.00 - Pure hypercholesterolemia, unspecified; E78.0 - Pure hypercholesterolemia (6) HTN (hypertension) Code(s): I10 - ESSENTIAL (PRIMARY) HYPERTENSION Qualifiers: Hypertension type: essential hypertension Qualified Code(s): I10 - Essential (primary) hypertension (7) Hypothyroidism Code(s): E03.9 - HYPOTHYROIDISM, UNSPECIFIED Qualifiers: Hypothyroidism type: unspecified Qualified Code(s): E03.9 - Hypothyroidism , unspecified Assessment/Plan Lexiscan MPI: 04/03/2018 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 Acute on chronic diastolic/systolic failure and pleural effusions improving 2. 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 HTN/HCVD 4. Hyperlipidemia 5. Type 2 DM 6. Hypothyroidism 7. CAD s/p PCI, demand ischemia 8. Hyperuricemia 9. Remote h/o PAF->SR [id number] on no anticoagulation therapy 10. Anemia of CKD 11. Suprapubic discomfort P: 1. Resumed Demadex 20 qd with monitor renal function and electrolytes, replete K as you are 2. Will continue to hold ARB given low eGFR, placed on BiDil instead with uptitration as tolerated 3. Continue ASA 325 qd, Lipitor 40 qhs, Toprol XL 100qd 4. DVT and GI prophylaxis 5. F/u with Dr. Ruiz upon d/c [phone] 6. Eventually patient will require right and left heart cardiac catheterization coronary angiography for further evaluation of the above-noted systolic left ventricular dysfunction but to be deferred at this point in view of her progressive renal insufficiency, to be further discussed with nephrology service 7. Check UA, bladder ultrasound
[2018-04-19 11:22] VITALS: BP 116/49; TEMP 98
--- NOTE | 2018-04-19 12:45 | PN ---
Progress Note (short form) - Note Progress Note: Renal follow up for ISELA on CKD Pt seen and examined at the bedside s/p bladder US complained of lower abd/supra-pubic pain this am no sob, cp, upper Abd pain no N/V/D Vital Signs Temperature 98.0 F 04/19/18 10:00 Pulse Rate 61 04/19/18 10:00 Respiratory Rate 18 04/19/18 10:00 Blood Pressure 116/49 04/19/18 10:00 O2 Sat by Pulse Oximetry (%) 95 04/19/18 09:00 NAD awake and alert RRR Dec BS soft NT/ND Trace LE edema CBC, BMP 04/19/18 06:00 04/19/18 06:00 Current Medications Allopurinol (Zyloprim -) 200 mg PO DAILY [facility] Last Admin: 04/19/18 09:27 Dose: 200 mg Aspirin (Asa -) 325 mg PO DAILY [facility] Last Admin: 04/19/18 09:27 Dose: 325 mg Atorvastatin Calcium (Lipitor -) 40 mg PO HS [facility] Last Admin: 04/18/18 22:03 Dose: 40 mg Calcium Carbonate/Cholecalciferol (Os-Pedro 500+D -) 1 tab PO DAILY [facility] Last Admin: 04/19/18 09:28 Dose: 1 tab Cholecalciferol (Vitamin D3 -) 1,000 unit PO DAILY [facility] Last Admin: 04/19/18 09:28 Dose: 1,000 unit Heparin Sodium (Porcine) (Heparin -) 5,000 unit SQ TID [facility] Last Admin: 04/19/18 05:38 Dose: 5,000 unit Hydralazine HCl (Apresoline -) 25 mg PO BID [facility] Last Admin: 04/19/18 09:28 Dose: 25 mg Isosorbide Mononitrate (Imdur -) 30 mg PO DAILY [facility] Last Admin: 04/19/18 09:28 Dose: 30 mg Levothyroxine Sodium (Synthroid -) 25 mcg PO DAILY@0700 [facility] Last Admin: 04/19/18 06:08 Dose: 25 mcg Metoprolol Succinate (Toprol Xl -) 100 mg PO DAILY [facility] Last Admin: 04/19/18 09:28 Dose: 100 mg Multivitamins/Minerals/Vitamin C (Tab-A-Vit -) 1 tab PO DAILY [facility] Last Admin: 04/19/18 09:27 Dose: 1 tab Pantoprazole Sodium (Protonix -) 40 mg PO DAILY [facility] Last Admin: 04/19/18 09:27 Dose: 40 mg Potassium Chloride (K-Dur -) 40 meq PO DAILY [facility] Last Admin: 04/19/18 09:28 Dose: 40 meq Simethicone (Mylicon -) 80 mg PO Q4H PRN PRN Reason: GAS Last Admin: 04/19/18 05:35 Dose: 80 mg Torsemide (Demadex -) 20 mg PO DAILY [facility] Last Admin: 04/19/18 09:27 Dose: 20 mg 88 year old woman with 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
[2018-04-19 14:39] VITALS: PULSE 75
[2018-04-19 14:56] LABS: PH,URINE 6.5 (5.0-8.0); URINE APPEARANCE Clear; URINE BILIRUBIN Negative (<2.0 mg/dL); URINE COLOR Yellow; URINE GLUCOSE (UA) Negative (NEGATIVE); URINE KETONE Negative (NEGATIVE); URINE LEUK ESTERASE Negative (NEGATIVE); URINE NITRITE Negative (NEGATIVE); URINE UROBILINOGEN 0.2 mg/dL (0.2-1.0)
--- NOTE | 2018-04-19 15:09 | DS ---
Physical Examination Vital Signs: Vital Signs Temperature 98.0 F 04/19/18 10:00 Pulse Rate 75 04/19/18 14:35 Respiratory Rate 18 04/19/18 10:00 Blood Pressure 116/49 04/19/18 10:00 O2 Sat by Pulse Oximetry (%) 98 04/19/18 14:35 Labs: CBC, BMP 04/19/18 06:00 04/19/18 06:00 Discharge Summary Reason For Visit: CHEST PAIN, ELEVATED TROPONIN LEVEL Current Active Problems CHF (congestive heart failure) (Acute) Chest pain (Acute) Demand ischemia (Acute) Elevated troponin (Acute) Suprapubic pain, acute (Acute) Hospital Course: is a 88 year old female who was admitted for evaluation of chest pain , elevated troponin, and acute chf exacerbation, pleural effusion. Pt evaluated by cardiology, nephrology. Chest pain resolved, troponin peaked, 2/2 chf exacerbation. iv diuresed with improvement in symptoms, transitioned to po torsemide. renal function unchanged without worsening. pre and post O2sat done, pt does not need home O2. Pt has been cleared by cardiology and nephrology for discharge. Pt c/o suprapubic pain this am, bladder/pelvic US without acute findings, UA negative. Pt is medically stable for discharge home w/ VNS. F/u outpt recommended. Condition: Good - Instructions Diet, Activity, Other Instructions: resume prev diet, activity meds as directed f/u IN 1 WEEK W/ , check BMP Referrals: Tari Ruiz MD [Staff Physician] - 1 Week Walker Padilla MD [Primary Care Provider] - 1 Week Disposition: VNS/HOME HEALTH CARE - Home Medications Comprehensive Discharge Medication List: Ambulatory Orders Allopurinol [Zyloprim -] 200 mg PO DAILY 03/19/14 Aspirin [ASA -] 325 mg PO DAILY 03/19/14 Atorvastatin Ca [Lipitor] 40 mg PO HS 03/19/14 Cholecalciferol (Vitamin D3) [Vitamin D3] 1,000 unit PO DAILY 03/19/14 Metoprolol Succinate [Toprol XL -] 100 mg PO HS 03/19/14 Multivitamins [Multivit ([facility] Formulary)] 1 tab PO DAILY 03/19/14 Guar Gum [Benefiber] 1 each PO BID #0 packet 05/21/14 Calcium Carbonate/Vitamin D3 [Calcium 500-Vit D3 200 Caplet] 1 each PO DAILY 06/23 Levothyroxine [Synthroid -] 25 mcg PO DAILY 02/13/18 Torsemide [Demadex -] 20 mg PO DAILY #30 tablet 02/21/18 Isosorbide Mononitrate [Imdur -] 30 mg PO DAILY #30 tab.sr.24h 04/19/18 Potassium Chloride 20 meq PO DAILY #30 tab.er.prt 04/19/18 hydrALAZINE HCL [Apresoline -] 25 mg PO BID #30 tablet 04/19/18
[2018-04-19 16:00] LABS: EPI CELLS RARE /HPF (FEW); URINE BACTERIA RARE /hpf (NONE SEEN); URINE MUCUS RARE
== END 2018-04-19 18:41 | disposition home health service (06) | DRG 291 ==
LOC: JER 16:21 → JERBED 19:15 → J4S 04-16 00:03 → OBSVTOIN 04-16 14:00
PROVIDERS: ADMIT Specialist; ATTEND Specialist
DX: I13.0 Hypertensive heart and chronic kidney disease with heart failure and stage 1 through stage 4 chronic kidney disease, or unspecified chronic kidney disease (principal); I50.43 Acute on chronic combined systolic (congestive) and diastolic (congestive) heart failure; N18.4 Chronic kidney disease, stage 4 (severe); I24.8 Other forms of acute ischemic heart disease; N17.9 Acute kidney failure, unspecified; E11.22 Type 2 diabetes mellitus with diabetic chronic kidney disease; E11.21 Type 2 diabetes mellitus with diabetic nephropathy; D63.1 Anemia in chronic kidney disease; R07.9 Chest pain, unspecified; E78.5 Hyperlipidemia, unspecified; I25.10 Atherosclerotic heart disease of native coronary artery without angina pectoris; Z85.3 Personal history of malignant neoplasm of breast; Z90.11 Acquired absence of right breast and nipple; Z95.5 Presence of coronary angioplasty implant and graft; I44.7 Left bundle-branch block, unspecified; R74.8 Abnormal levels of other serum enzymes; E03.9 Hypothyroidism, unspecified; E79.0 Hyperuricemia without signs of inflammatory arthritis and tophaceous disease; I48.0 Paroxysmal atrial fibrillation; I34.0 Nonrheumatic mitral (valve) insufficiency
CPT/HCPCS: 36415; 36600; 71045-TC-FY; 71046-TC-FY; 76856-TC; 80048; 80053; 81003; 81015; 82550; 82803; 83735; 83880; 84100; 84484; 85025; 87086; 93005; 93010; 94761; 99285-25; G0378; J1644

== ENCOUNTER 2018-06-03 07:20 | Inpatient (IN) | payer BC, OTHER ==
[2018-06-03 07:32] VITALS: BMI 32.3
--- NOTE | 2018-06-03 07:36 | PDOC ---
Attending Attestation - Resident Resident Name: Ralf Worley - ED Attending Attestation I have performed the following: I have examined & evaluated the patient, The case was reviewed & discussed with the resident, I agree w/resident's findings & plan, Exceptions are as noted - HPI HPI: 06/03/18 09:59 Reviewed residents HPI - Physicial Exam PE: 06/03/18 10:05 Reviewed Residents HPI - Medical Decision Making 06/03/18 10:06 88 years old past medical history significant for CHF CK D diabetes hypertension hyperlipidemia breast cancer status post vasectomy CAD who presents for renal failure and permacath placement to initiate dialysis. No acute complaints per the patient she has been feeling more tired Denies fever chills chest pain shortness of breath no nausea no vomiting or diarrhea Her EKG demonstrates a known left bundle-branch block Laboratory analysis is notable only for an elevated creatinine her potassium is within normal limits She'll be admitted to the hospital with vascular consultation for placement of dialysis access. Heart Score/ECG Review - ECG Impressions Comment:: 06/03/18 10:06 EKG performed at 753. Demonstrate sinus rhythm 80 bpm left axis deviation left bundle branch block. No ST elevations. Unchanged compared to prior. Interpreted by me.
--- NOTE | 2018-06-03 07:58 | PDOC ---
History of Present Illness - General Stated Complaint: PCP SENT FOR ADMISSION Time Seen by Provider: 06/03/18 07:36 History Source: Patient Exam Limitations: No Limitations - History of Present Illness Initial Comments: 06/03/18 07:53 The patient is an 88F with a PMH of diastolic CHF, CKD, DM, HLD, HTN, breast cancer (right masectomy 2 years ago, no chemo), and CAD who presents to the ER via narrow gauge engineer's recommendations (Dr. Maria A Araujo) for placement of permacath by Dr. Knutson. The patient has no acute complaints except for "exhaustion" that has occurred since "[place]". She does still produce urine. She denies fevers, chills, nausea, vomiting, CP, SOB, abdominal pain. Past History - Past Medical History Allergies/Adverse Reactions: Allergies Allergy/AdvReac Type Severity Reaction Status Date / Time metronidazole [From Flagyl] Allergy Severe Swelling Verified 06/03/18 07:25 Home Medications: Ambulatory Orders Allopurinol [Zyloprim -] 200 mg PO DAILY 03/19/14 Aspirin [ASA -] 325 mg PO DAILY 03/19/14 Atorvastatin Ca [Lipitor] 40 mg PO HS 03/19/14 Cholecalciferol (Vitamin D3) [Vitamin D3] 1,000 unit PO DAILY 03/19/14 Metoprolol Succinate [Toprol XL -] 100 mg PO HS 03/19/14 Multivitamins [Multivit ([facility] Formulary)] 1 tab PO DAILY 03/19/14 Guar Gum [Benefiber] 1 each PO BID #0 packet 05/21/14 Calcium Carbonate/Vitamin D3 [Calcium 500-Vit D3 200 Caplet] 1 each PO DAILY 06/23 Levothyroxine [Synthroid -] 25 mcg PO DAILY 02/13/18 Torsemide [Demadex -] 20 mg PO DAILY #30 tablet 02/21/18 Isosorbide Mononitrate [Imdur -] 30 mg PO DAILY #30 tab.sr.24h 04/19/18 Potassium Chloride 20 meq PO DAILY #30 tab.er.prt 04/19/18 hydrALAZINE HCL [Apresoline -] 25 mg PO BID #30 tablet 04/19/18 Anemia: No Asthma: No Cancer: Yes (BREAST) Cardiac Disorders: Yes (STENT 20 YRS AGO) CVA: No COPD: No CHF: Yes (TAKES LASIX) Dementia: No Diabetes: Yes (borderline) GI Disorders: No Disorders: Yes (ONE FUNCTIONING KIDNEY) HTN: Yes Hypercholesterolemia: Yes Liver Disease: No Seizures: No Thyroid Disease: No - Surgical History Abdominal Surgery: No Appendectomy: Yes Cardiac Surgery: Yes (ANGIO) Cholecystectomy: No Lung Surgery: No Neurologic Surgery: No Orthopedic Surgery: No - Immunization History Immunization Up to Date: Yes - Suicide/Smoking/Psychosocial Hx Smoking Status: No Smoking History: Never smoked Have you smoked in the past 12 months: No Number of Cigarettes Smoked Daily: 0 Hx Alcohol Use: No Drug/Substance Use Hx: No Substance Use Type: None Hx Substance Use Treatment: No Review of Systems - Review of Systems Able to Perform ROS?: Yes Comments:: 06/03/18 08:05 GENERAL/CONSTITUTIONAL: Positive for fatigue. No fever or chills. No weakness. HEAD, EYES, EARS, NOSE AND THROAT: No change in vision. No ear pain or discharge. No sore throat. CARDIOVASCULAR: No chest pain, palpitations, or lightheadedness. RESPIRATORY: No cough, wheezing, shortness of breath, or hemoptysis. GASTROINTESTINAL: No nausea, vomiting, diarrhea, constipation, or abdominal pain. GENITOURINARY: No dysuria, frequency, hematuria, or change in urination. MUSCULOSKELETAL: No joint or muscle swelling or pain. No neck or back pain. SKIN: No rash or lesions. NEUROLOGIC: No headache, numbness, tingling, focal weakness, loss of consciousness, or change in strength/sensation. Is the patient limited Malaysian proficient: No *Physical Exam - Vital Signs Last Vital Signs Temp Pulse Resp BP Pulse Ox 97.7 F 68 18 132/66 97 06/03/18 07:25 06/03/18 07:25 06/03/18 07:25 06/03/18 07:25 06/03/18 07:25 - Physical Exam Comments: 06/03/18 08:05 GENERAL: Well developed, well nourished. Awake and alert. No acute distress. HEENT: Normocephalic, atraumatic. Hearing grossly normal. Moist mucous membranes. PERRLA, EOMI. No conjunctival pallor. Sclera are non-icteric. NECK: Supple. Full ROM. No JVD. CARDIOVASCULAR: Regular rate and rhythm. No murmurs, rubs, or gallops. PULMONARY: No evidence of respiratory distress. Lungs clear to auscultation bilaterally. No wheezing, rales or rhonchi. ABDOMINAL: Soft. Non-tender. Non-distended. No rebound or guarding. GENITOURINARY: No CVA tenderness bilaterally. MUSCULOSKELETAL: Normal range of motion at all joints. No bony deformities or tenderness. EXTREMITIES: No cyanosis. No clubbing. No edema. No calf tenderness or swelling. SKIN: Warm and dry. Normal capillary refill. No rashes. No jaundice. NEUROLOGICAL: Alert, awake, appropriate. Cranial nerves 2-12 grossly intact. Normal speech. Gait is normal without ataxia. PSYCHIATRIC: Cooperative. Good eye contact. Appropriate mood and affect. Heart Score/ECG Review #1 General ECG Interpretation: Sinus Rhythm, Normal Rate, Normal Intervals, No acute ischemic changes Compared to previous ECG there are: No significant change 06/03/18 08:05 NSR vent rate 80 HI 212 QRS 142 QTc 567 1st degree AV block, unchanged PAC's noted LBBB Prolonged QT noted No STD or SHARI No signs of acute ischemia ED Treatment Course - LABORATORY CBC & Chemistry Diagram: 06/03/18 07:53 06/03/18 07:53 - RADIOLOGY Radiology Studies Ordered: Category Date Time Status CHEST X-RAY PORTABLE* [RAD] Stat Radiology 06/03/18 07:39 Ordered Medical Decision Making - Medical Decision Making 06/03/18 08:06 The patient is an 88F with an extensive PMH who presents for placement of permacath via narrow gauge engineer. Pending labs and admission to Dr. Sweet. EKG unremarkable. 06/03/18 09:49 Sascha aware of pt. I have endorsed the patient to [facility] for admission under Dr. Sweet. *DC/Admit/Observation/Transfer Diagnosis at time of Disposition: CKD (chronic kidney disease) Qualifiers: Chronic kidney disease stage: unspecified stage Qualified Code(s): N18.9 - Chronic kidney disease, unspecified - Discharge Dispostion Condition at time of disposition: Guarded Decision to Admit order: Yes - Referrals Referrals: Walker Padilla MD [Primary Care Provider] - - Patient Instructions - Post Discharge Activity
[2018-06-03 08:18] LABS: BASO % 1.7 % (0-2.0); EOS % 3.1 % (0-4.5); HEMATOCRIT 32.6 % (32.4-45.2); HEMOGLOBIN 10.3 GM/dL (10.7-15.3); LYMPH % 21.6 % (8-40); MCH 31.7 pg (25.7-33.7); MCHC 31.5 g/dl (32.0-36.0); MEAN CELL VOLUME 100.5 fl (80-96); MEAN PLT VOLUME 10.7 fl (7.5-11.1); MONO % 9.1 % (3.8-10.2); NEUT % 64.5 % (42.8-82.8); PLATELET COUNT 161 K/MM3 (134-434); RBC 3.24 M/mm3 (3.60-5.2); WHITE BLOOD COUNT 6.8 K/mm3 (4.0-10.0)
[2018-06-03 08:24] LABS: INR 0.92 (0.83-1.09); PROTHROMBIN TIME (PATIENT) 10.8 SEC (9.7-13.0)
[2018-06-03 08:27] LABS: ACTIVATED PTT 26.8 SECONDS (25.2-36.5)
[2018-06-03 08:48] LABS: ALBUMIN 3.3 g/dl (3.4-5.0); ALK PHOS 66 U/L (45-117); ANION GAP 6 MMOL/L (8-16); BILIRUBIN,TOTAL 0.4 mg/dL (0.2-1); BLOOD UREA NITROGEN 71 mg/dL (7-18); CALCIUM 8.9 mg/dL (8.5-10.1); CHLORIDE 109 mmol/L (98-107); CO2 26 mmol/L (21-32); CREATININE 3.5 mg/dL (0.55-1.3); GLUCOSE,RANDOM 167 mg/dL (74-106); SGOT/AST 20 U/L (15-37); SGPT/ALT 19 U/L (13-61); SODIUM 140 mmol/L (136-145); TOT PROT 6.8 g/dl (6.4-8.2)
--- NOTE | 2018-06-03 10:51 | CONSULT ---
Consult - text type - Consultation Consultation Note: Renal Consult for CKD This is a 88 year old woman with hx of CKD now stage 5, CHF, DM, Hyperlipidemia , Breast Cancer s/p mastectomy, CAD who presents with weakness and uremic symptoms to start dialysis. Pt reports that she has been feeling weak and lethagic. No N/V/D. No SOB or chest pain. Making urine. + metallic taste in the mouth. No Fever, chills, BARNARD, rash. Denies any recent NSAID use or contrast exposure. PMHx: as above Allergies: NKDA Family Hx: NC Social hx: No T/A/D ROS: as per HPI Home Medications Medication Instructions Recorded Allopurinol [Zyloprim -] 200 mg PO DAILY 03/19/14 Aspirin [ASA -] 325 mg PO DAILY 03/19/14 Atorvastatin Ca [Lipitor] 40 mg PO HS 03/19/14 Cholecalciferol (Vitamin D3) 1,000 unit PO DAILY 03/19/14 [Vitamin D3] Metoprolol Succinate [Toprol XL -] 100 mg PO HS 03/19/14 Multivitamins [Multivit ([facility] 1 tab PO DAILY 03/19/14 Formulary)] Guar Gum [Benefiber] 1 each PO BID #0 packet 05/21/14 Calcium Carbonate/Vitamin D3 1 each PO DAILY 02/13/18 [Calcium 500-Vit D3 200 Caplet] Levothyroxine [Synthroid -] 25 mcg PO DAILY 02/13/18 Torsemide [Demadex -] 20 mg PO DAILY #30 tablet 02/21/18 Isosorbide Mononitrate [Imdur -] 30 mg PO DAILY #30 tab.sr.24h 04/19/18 Potassium Chloride 20 meq PO DAILY #30 tab.er.prt 04/19/18 hydrALAZINE HCL [Apresoline -] 25 mg PO BID #30 tablet 04/19/18 Vital Signs Temperature 97.7 F 06/03/18 07:25 Pulse Rate 68 06/03/18 07:25 Respiratory Rate 18 06/03/18 07:25 Blood Pressure 132/66 06/03/18 07:25 O2 Sat by Pulse Oximetry (%) 98 06/03/18 07:32 Intake & Output 05/31/18 06/01/18 06/02/18 06/03/18 23:59 23:59 23:59 23:59 Weight 72.575 kg NAD awake and alert Neck supple no JVD RRR, No M/R CTA, no rales or wheeze soft NT/ND, no organomegaly No Le edema, clubbing or cyanosis no focal neurologic defects CBC, BMP 06/03/18 07:53 06/03/18 07:53 88 year old woman with hx of CKD now stage 5, CHF, DM, Hyperlipidemia, Breast Cancer s/p mastectomy, CAD who presents with weakness and uremic symptoms to start dialysis. #CKDK stage 5, now ESRD to start HD #Chronic Anemia #Hx of CHF #Hypertension #Renal Osteodystrophy Will plan to start dialysis during this admission Vascular Surgery aware and will place access today will arrange HD for later today with second tx due tomorrow will need outpatient HD placement pt appears evolemic w/o evidence of acut CHF Hgb is at goal, will tx wtih CEDRIC/Iron with HD Check Phos, Ca, PTH Would continue diuretics even after starting dialysis BP near goal presently Thank you will follow Miguel Ramirez DO
[2018-06-03] MEDS ORDERED: SODIUM CHLORIDE 250 ML IV PRN ×2 (11:12→16:57)
--- NOTE | 2018-06-03 11:15 | HP ---
Admitting History and Physical - Primary Care Physician PCP: Walker Padilla - Admission Chief Complaint: ESRD History of Present Illness: 88 year old female pmh of CKD-stage 5, CHF, DM2, Hyperlipidemia, Breast CA s/p mastectomy, CAD who was advised by nephrology to come in for permacath/AV fisula placement for starting HD. She reports generalized weakness, fatigue over the last few months. Otherwise, pt denies any chest pain, sob, n/v/d, fever /chills. Denies any recent medication change. History Source: Patient Limitations to Obtaining History: No Limitations - Past Medical History Cardiovascular: Yes: CAD (s/p stents around 20 years ago ), CHF, HTN, Hyperlipdemia Renal/: Yes: Renal Failure, Other Heme/Onc: Yes: Cancer (R breast cacer- s/p partial masectomy) Musculoskeletal: Yes: Osteoarthritis Endocrine: Yes: Diabetes Mellitus - Past Surgical History Past Surgical History: Yes: Mastectomy (partial R sided ) - Smoking History Smoking history: Never smoked Have you smoked in the past 12 months: No Aproximately how many cigarettes per day: 0 - Alcohol/Substance Use Hx Alcohol Use: No History of Substance Use: reports: None - Social History ADL: Independent History of Recent Travel: No Home Medications - Allergies Allergies/Adverse Reactions: Allergies Allergy/AdvReac Type Severity Reaction Status Date / Time metronidazole [From Flagyl] Allergy Severe Swelling Verified 06/03/18 07:25 - Home Medications Home Medications: Ambulatory Orders Allopurinol [Zyloprim -] 200 mg PO DAILY 03/19/14 Aspirin [ASA -] 325 mg PO DAILY 03/19/14 Atorvastatin Ca [Lipitor] 40 mg PO HS 03/19/14 Cholecalciferol (Vitamin D3) [Vitamin D3] 1,000 unit PO DAILY 03/19/14 Metoprolol Succinate [Toprol XL -] 100 mg PO HS 03/19/14 Multivitamins [Multivit ([facility] Formul[facility])] 1 tab PO DAILY 03/19/14 Guar Gum [Benefiber] 1 each PO BID #0 packet 05/21/14 Calcium Carbonate/Vitamin D3 [Calcium 500-Vit D3 200 Caplet] 1 each PO DAILY 06/23 Levothyroxine [Synthroid -] 25 mcg PO DAILY 02/13/18 Torsemide [Demadex -] 20 mg PO DAILY #30 tablet 02/21/18 Isosorbide Mononitrate [Imdur -] 30 mg PO DAILY #30 tab.sr.24h 04/19/18 Potassium Chloride 20 meq PO DAILY #30 tab.er.prt 04/19/18 hydrALAZINE HCL [Apresoline -] 25 mg PO BID #30 tablet 04/19/18 Family Disease History - Family Disease History Family Disease History: Other: Father (ETOH abuse), Brother (kidney CA, Alzheimer's dementia ) Physical Examination Vital Signs: Vital Signs Temperature 97.7 F 06/03/18 07:25 Pulse Rate 68 06/03/18 07:25 Respiratory Rate 18 06/03/18 07:25 Blood Pressure 132/66 06/03/18 07:25 O2 Sat by Pulse Oximetry (%) 98 06/03/18 07:32 Labs: CBC, BMP 06/03/18 07:53 06/03/18 07:53 Problem List - Problems (1) ESRD (end stage renal disease) Assessment/Plan: now end stage w/ uremic symptoms, plan for HD permacath/ L AV fisutula placement by vascular holding ASA nephrology following Code(s): N18.6 - END STAGE RENAL DISEASE (2) CHF (congestive heart failure) Assessment/Plan: chronic, euvolemic continue torsemide Code(s): I50.9 - HEART FAILURE, UNSPECIFIED Qualifiers: Heart failure type: combined systolic and diastolic Heart failure chronicity: chronic Qualified Code(s): I50.42 - Chronic combined systolic ( congestive) and diastolic (congestive) heart failure (3) Diabetes mellitus Assessment/Plan: w/ complications not on any medication regimen- will clarify BGM insulin sliding scale Code(s): E11.9 - TYPE 2 DIABETES MELLITUS WITHOUT COMPLICATIONS Qualifiers: Diabetes mellitus type: type 2 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0 - Pure hypercholesterolemia (5) HTN (hypertension) Assessment/Plan: controlled continue home meds Code(s): I10 - ESSENTIAL (PRIMARY) HYPERTENSION Qualifiers: Hypertension type: renovascular hypertension Qualified Code(s): I15.0 - Renovascular hypertension (6) Hypothyroidism Assessment/Plan: stable continue levothyroxine Code(s): E03.9 - HYPOTHYROIDISM, UNSPECIFIED Qualifiers: Hypothyroidism type: unspecified Qualified Code(s): E03.9 - Hypothyroidism , unspecified
--- NOTE | 2018-06-03 11:34 | CONSULT ---
Consult Consult Specialty:: Vascular Surgery - History of Present Illness History of Present Illness: 88 year old woman with chronic kidney disease stage 5. She is admitted to start dialysis. She is right handed. - Past Medical History Cardio/Vascular: Yes: CAD (s/p stents around 20 years ago ), CHF, HTN, Hyperlipdemia Renal/: Yes: Other (1 working kidney due to ? renal atrophy ) Endocrine: Yes: Diabetes Mellitus - Past Surgical History Past Surgical History: Yes: Mastectomy (partial, right) - Alcohol/Substance Use Hx Alcohol Use: No History of Substance Use: reports: None - Smoking History Smoking history: Never smoked Have you smoked in the past 12 months: No Aproximately how many cigarettes per day: 0 - Social History Usual Living Arrangement: Alone ADL: Independent Home Medications - Allergies Allergies/Adverse Reactions: Allergies Allergy/AdvReac Type Severity Reaction Status Date / Time metronidazole [From Flagyl] Allergy Severe Swelling Verified 06/03/18 07:25 - Home Medications Home Medications: Ambulatory Orders Allopurinol [Zyloprim -] 200 mg PO DAILY 03/19/14 Aspirin [ASA -] 325 mg PO DAILY 03/19/14 Atorvastatin Ca [Lipitor] 40 mg PO HS 03/19/14 Cholecalciferol (Vitamin D3) [Vitamin D3] 1,000 unit PO DAILY 03/19/14 Metoprolol Succinate [Toprol XL -] 100 mg PO HS 03/19/14 Multivitamins [Multivit ([facility] Formul[facility])] 1 tab PO DAILY 03/19/14 Guar Gum [Benefiber] 1 each PO BID #0 packet 05/21/14 Calcium Carbonate/Vitamin D3 [Calcium 500-Vit D3 200 Caplet] 1 each PO DAILY 06/23 Levothyroxine [Synthroid -] 25 mcg PO DAILY 02/13/18 Torsemide [Demadex -] 20 mg PO DAILY #30 tablet 02/21/18 Isosorbide Mononitrate [Imdur -] 30 mg PO DAILY #30 tab.sr.24h 04/19/18 Potassium Chloride 20 meq PO DAILY #30 tab.er.prt 04/19/18 hydrALAZINE HCL [Apresoline -] 25 mg PO BID #30 tablet 04/19/18 Physical Exam Vital Signs: Vital Signs Temperature 97.7 F 06/03/18 07:25 Pulse Rate 68 06/03/18 07:25 Respiratory Rate 18 10/29/18 07:25 Blood Pressure 132/66 06/03/18 07:25 O2 Sat by Pulse Oximetry (%) 98 06/03/18 07:32 Constitutional: Yes: Anxious, Thin Eyes: Yes: WNL HENT: Yes: WNL Neck: Yes: WNL, Supple Cardiovascular: Yes: Regular Rate and Rhythm Respiratory: Yes: Regular Gastrointestinal: Yes: Soft Extremities: Yes: Other (Left arm cephalic vein patent in upper arm and proximal forearm.) Edema: No Peripheral Pulses WNL: Yes Labs: CBC, BMP 06/03/18 07:53 06/03/18 07:53 Problem List - Problems (1) CKD (chronic kidney disease) Assessment/Plan: Patient needs access for planned hemodialysis. Will place Permacath and create AV fistula in left arm today Code(s): N18.9 - CHRONIC KIDNEY DISEASE, UNSPECIFIED Qualifiers: Chronic kidney disease stage: stage 4 (severe) Qualified Code(s): N18.9 - Chronic kidney disease, unspecified
[2018-06-03] MEDS ORDERED: LIDOCAINE HCL 1%, 10 MG/ML (20ML VIAL) ONE (13:20)
[2018-06-03] MEDS ORDERED: HEPARIN NA (PORCINE) 5,000 UNITS/ML 1ML VIAL ONE (13:20)
[2018-06-03] MEDS ORDERED: PAPAVERINE HCL 30 MG/1 ML 10 ML VIAL NR ONE (13:20)
[2018-06-03] MEDS ORDERED: MIDAZOLAM HCL 2 MG/2 ML SINGLE DOSE VIAL ONE (14:21)
--- NOTE | 2018-06-03 15:06 | EKG ---
Test Reason : Blood Pressure : / mmHG Vent. Rate : 080 BPM Atrial Rate : 098 BPM P-R Int : 212 ms QRS Dur : 142 ms QT Int : 492 ms P-R-T Axes : 093 -68 094 degrees QTc Int : 567 ms SINUS RHYTHM WITH 1ST DEGREE A-V BLOCK WITH PREMATURE ATRIAL COMPLEXES OR ABERRANT CONDUCTION LEFT AXIS DEVIATION LEFT BUNDLE BRANCH BLOCK ABNORMAL ECG WHEN COMPARED WITH ECG OF 15-APR-2018 13:55, ABERRANT CONDUCTION IS NOW PRESENT Confirmed by OLGA PATEL MD ([id number]) on 06/03/2018 3:06:32 PM Referred By: Confirmed By:OLGA PATEL MD
[2018-06-03] MEDS ORDERED: LIDOCAINE HCL 1%, 10 MG/ML (20ML VIAL) INF ONE (15:13)
[2018-06-03] MEDS ORDERED: INSULIN SLIDING SCALE (NOVOLOG) 1 VIAL SQ SCH (16:30)
--- NOTE | 2018-06-03 16:32 | OP ---
Operative Note - Note: Operative Date: 06/03/18 Pre-Operative Diagnosis: Renal Failure Operation: Placement Permacath. Creation AV fistula left arm Findings: Patent right IJ Patent left cephalic vein and brachial artery left arm Implants: 19 cm Permacath Post-Operative Diagnosis: Same as Pre-op Surgeon: Todd Caicedo Anesthesiologist/GLASS SMOOTHER: Riana Peace MD Anesthesia: Fractional Estimated Blood Loss (mls): 30
[2018-06-03] MEDS ORDERED: ONDANSETRON 4 MG/2 ML VIAL IVPUSH PRN (17:10)
[2018-06-03] MEDS: ACETAMINOPHEN WITH CODEINE 300MG/30MG TABLET PO PRN (21:56)
[2018-06-03] MEDS: ATORVASTATIN CA 40 MG TABLET (FP) PO SCH (21:59)
[2018-06-03] MEDS: hydrALAZINE HCL 25 MG TABLET (FP) PO SCH (21:59)
[2018-06-03] MEDS ORDERED: hydrALAZINE HCL 25 MG TABLET (FP) PO SCH (22:00)
[2018-06-03] MEDS ORDERED: ATORVASTATIN CA 40 MG TABLET (FP) PO SCH (22:00)
[2018-06-03] MEDS: INSULIN SLIDING SCALE (NOVOLOG) 1 VIAL SQ SCH (22:00)
[2018-06-04 06:06] LABS: HEP.C VIRUS AB <0.1 s/co ratio (0.0-0.9)
[2018-06-04] MEDS: INSULIN SLIDING SCALE (NOVOLOG) 1 VIAL SQ SCH ×4 (06:09→21:14)
[2018-06-04] MEDS: LEVOTHYROXINE NA 25 MCG TABLET (FP) PO SCH (06:13)
[2018-06-04] MEDS ORDERED: LEVOTHYROXINE NA 25 MCG TABLET (FP) PO SCH (07:00)
[2018-06-04 07:38] LABS: BASO % 1.2 % (0-2.0); EOS % 3.5 % (0-4.5); HEMATOCRIT 29.8 % (32.4-45.2); HEMOGLOBIN 9.4 GM/dL (10.7-15.3); LYMPH % 23.2 % (8-40); MCH 31.6 pg (25.7-33.7); MCHC 31.3 g/dl (32.0-36.0); MEAN CELL VOLUME 100.8 fl (80-96); MEAN PLT VOLUME 11.3 fl (7.5-11.1); MONO % 9.4 % (3.8-10.2); NEUT % 62.7 % (42.8-82.8); PLATELET COUNT 135 K/MM3 (134-434); RBC 2.96 M/mm3 (3.60-5.2); RDW 14.3 % (11.6-15.6); WHITE BLOOD COUNT 7.6 K/mm3 (4.0-10.0)
[2018-06-04 08:04] LABS: ANION GAP 10 MMOL/L (8-16); BLOOD UREA NITROGEN 70 mg/dL (7-18); CALCIUM 7.8 mg/dL (8.5-10.1); CHLORIDE 111 mmol/L (98-107); CO2 23 mmol/L (21-32); CREATININE 3.3 mg/dL (0.55-1.3); GLUCOSE,RANDOM 92 mg/dL (74-106); MAGNESIUM 2.1 mg/dL (1.8-2.4); PHOSPHOROUS 4.6 mg/dL (2.5-4.9); POTASSIUM 4.4 mmol/L (3.5-5.1); SODIUM 144 mmol/L (136-145)
--- NOTE | 2018-06-04 09:26 | PN ---
Progress Note (short form) - Note Progress Note: POD 1 No C/o Left arm fistula bruit Stable To start HD with Permacath Problem List - Problems (1) CKD (chronic kidney disease) Code(s): N18.9 - CHRONIC KIDNEY DISEASE, UNSPECIFIED Qualifiers: Chronic kidney disease stage: stage 4 (severe) Qualified Code(s): N18.9 - Chronic kidney disease, unspecified
[2018-06-04] MEDS ORDERED: CALCIUM 500MG/VIT-D 200 UNITS COMBO TABLET (FP) PO SCH (10:00)
[2018-06-04] MEDS ORDERED: ALLOPURINOL 100 MG TABLET (FP) PO SCH (10:00)
[2018-06-04] MEDS ORDERED: CHOLECALCIFEROL (VITAMIN D3) 1,000 UNIT TABLET (FP) PO SCH (10:00)
[2018-06-04] MEDS ORDERED: ISOSORBIDE MONONITRATE 30 MG TAB.SR.24H (FP) PO SCH (10:00)
[2018-06-04] MEDS ORDERED: TORSEMIDE 20 MG TABLET (FP) PO SCH (10:00)
--- NOTE | 2018-06-04 10:04 | PN ---
Progress Note (short form) - Note Progress Note: Pod 1 Pt seen and examined in dialysis unit. States she is feeling well. Has some discomfort in her lue with movement at incision site. No other complaints. No issues overnight. Denies L hand pain, cp/sob, n/v/d, calf pain/edema. Vital Signs Temp 97.6 F 06/04/18 08:24 Pulse 74 06/04/18 08:24 Resp 18 06/04/18 08:24 BP 124/54 L 06/04/18 08:24 Pulse Ox 95 06/03/18 21:00 Intake & Output 06/03/18 06/03/18 06/04/18 11:59 23:59 11:59 Intake Total 300 Output Total 10 Balance 290 Weight 160 lb 160 lb 159 lb 4 oz Intake: IV 300 Output: Estimated Blood Loss 10 Other: Voiding Method Toilet Toilet # Unmeasured Voids Void 1 1 Bowel Movement No No Height 4 ft 11 in 4 ft 11 in Body Mass Index (BMI) 32.3 32.3 Weight Measurement Method Built in [facility] Weight Measurement Method Standing Scale CBC, BMP 06/04/18 06:30 06/04/18 06:30 Gen: awake, alert, nad Chest: PC in place, dialyzing without issue Ext: LUE AVF with dressing in place, c/d/i. Palpable thrill over AVF. Vasc: Palpable radial LUE A/P: 88 y/o F PMHx CKD-stage 5, CHF, DM2, Hyperlipidemia, Breast CA s/p mastectomy, CAD admitted yesterday for permacath/AV fisula placement and initiation of HD, now POD 1 s/p creation of LUE AVF and placement of R PC. Pt receiving HD via PC without issue. LUE AVF with +thrill. -Continue care per medicine/nephrology -Pt should follow up in the office in [address] Caicedo -Please page [phone] with any questions/concerns
--- NOTE | 2018-06-04 12:52 | PN ---
Progress Note, Physician Chief Complaint: Pt lying in bed, reports very fatigued today. had HD this am. denies any chest pain, sob, n/v/d - Current Medication List Current Medications: Active Medications Acetaminophen/Codeine Phosphate (Tylenol # 3 -) 1 tab PO Q4H PRN PRN Reason: PAIN LEVEL 6-10 Last Admin: 06/03/18 21:56 Dose: 1 tab Allopurinol (Zyloprim -) 200 mg PO DAILY [facility] Aspirin (Asa -) 325 mg PO DAILY [facility] Atorvastatin Calcium (Lipitor -) 40 mg PO HS [facility] Last Admin: 06/03/18 21:59 Dose: 40 mg Calcium Carbonate/Cholecalciferol (Os-Pedro 500+D -) 1 tab PO DAILY [facility] Cholecalciferol (Vitamin D3 -) 1,000 unit PO DAILY [facility] Hydralazine HCl (Apresoline -) 25 mg PO BID [facility] Last Admin: 06/03/18 21:59 Dose: 25 mg Sodium Chloride (Normal Saline -) 250 mls @ 3,000 mls/hr IV PRN PRN PRN Reason: Hypotension during Dialysis Stop: 06/04/18 11:12 Insulin Aspart (Novolog Vial Sliding Scale -) 1 vial SQ ACHS [facility]; Protocol Last Admin: 06/04/18 11:56 Dose: Not Given Isosorbide Mononitrate (Imdur -) 30 mg PO DAILY [facility] Levothyroxine Sodium (Synthroid -) 25 mcg PO DAILY@0700 [facility] Last Admin: 06/04/18 06:13 Dose: 25 mcg Metoprolol Succinate (Toprol Xl -) 100 mg PO [facility] Last Admin: 06/03/18 22:02 Dose: 100 mg Ondansetron HCl (Zofran Injection) 4 mg IVPUSH Q6H PRN PRN Reason: NAUSEA AND/OR VOMITING Stop: 06/04/18 17:09 Torsemide (Demadex -) 20 mg PO DAILY [facility] - Objective Vital Signs: Vital Signs Temperature 98.5 F 06/04/18 08:35 Pulse Rate 65 06/04/18 11:55 Respiratory Rate 18 06/04/18 11:55 Blood Pressure 142/68 06/04/18 11:55 O2 Sat by Pulse Oximetry (%) 95 06/03/18 21:00 Constitutional: Yes: Well Nourished, No Distress, Calm Cardiovascular: Yes: Regular Rate and Rhythm Respiratory: Yes: Regular, CTA Bilaterally. No: Accessory Muscle Use, SOB, Tachypnea, Wheezes Gastrointestinal: Yes: WNL, Normal Bowel Sounds, Soft. No: Distention, Tenderness Genitourinary: Yes: WNL Musculoskeletal: Yes: WNL Edema: No Integumentary: Yes: Incision (LUE AV fistula +thrill/bruit) Neurological: Yes: WNL, Alert, Oriented Psychiatric: Yes: WNL, Alert, Oriented Labs: CBC, BMP 06/04/18 06:30 06/04/18 06:30 INR, PTT INR 0.92 (0.83-1.09) 06/03/18 07:53 Assessment/Plan (1) ESRD (end stage renal disease) Assessment/Plan: tolerated HD today s/p permacath/ L AV fisutula placement nephrology following outpt vascular follow up Code(s): N18.6 - END STAGE RENAL DISEASE (2) CHF (congestive heart failure) Assessment/Plan: chronic, euvolemic continue torsemide Code(s): I50.9 - HEART FAILURE, UNSPECIFIED Qualifiers: Heart failure type: combined systolic and diastolic Heart failure chronicity: chronic Qualified Code(s): I50.42 - Chronic combined systolic ( congestive) and diastolic (congestive) heart failure (3) Diabetes mellitus Assessment/Plan: w/ complications BGM insulin sliding scale Code(s): E11.9 - TYPE 2 DIABETES MELLITUS WITHOUT COMPLICATIONS Qualifiers: Diabetes mellitus type: type 2 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: without skilled nursing use Diabetes mellitus complication status: with kidney complications Diabetes mellitus complication detail: with chronic kidney disease Chronic kidney disease stage: stage 4 (severe) Qualified Code(s): E11.22 - Type 2 diabetes mellitus with diabetic chronic kidney disease; N18.4 - Chronic kidney disease, stage 4 (severe) (4) HLD (hyperlipidemia) Assessment/Plan: chronic continue statin Code(s): E78.5 - HYPERLIPIDEMIA, UNSPECIFIED Qualifiers: Hyperlipidemia type: pure hypercholesterolemia Qualified Code(s): E78.00 - Pure hypercholesterolemia, unspecified; E78.0 - Pure hypercholesterolemia (5) HTN (hypertension) Assessment/Plan: controlled continue home meds Code(s): I10 - ESSENTIAL (PRIMARY) HYPERTENSION Qualifiers: Hypertension type: renovascular hypertension Qualified Code(s): I15.0 - Renovascular hypertension (6) Hypothyroidism Assessment/Plan: stable continue levothyroxine Code(s): E03.9 - HYPOTHYROIDISM, UNSPECIFIED Qualifiers: Hypothyroidism type: unspecified Qualified Code(s): E03.9 - Hypothyroidism , unspecified Dispo: home. Outpt HD set up for Sunday
[2018-06-04] MEDS ORDERED: SODIUM CHLORIDE 250 ML IV PRN (13:26)
--- NOTE | 2018-06-04 13:26 | PN ---
Progress Note (short form) - Note Progress Note: Renal follow up for CKD/ESRD Pt seen and examined at the bedside s/p HD this am, tolerated it well feels tired no sob, cp, abd pain, N/V/D Vital Signs Temperature 98.5 F 06/04/18 08:35 Pulse Rate 65 06/04/18 11:55 Respiratory Rate 18 06/04/18 11:55 Blood Pressure 142/68 06/04/18 11:55 O2 Sat by Pulse Oximetry (%) 95 06/03/18 21:00 Intake & Output 06/01/18 06/02/18 06/03/18 06/04/18 23:59 23:59 23:59 23:59 Intake Total 300 Output Total 10 Balance 290 Weight 72.575 kg 72.235 kg NAD RRR CTA soft NT/ND no le edema CBC, BMP 06/04/18 06:30 06/04/18 06:30 Current Medications Acetaminophen/Codeine Phosphate (Tylenol # 3 -) 1 tab PO Q4H PRN PRN Reason: PAIN LEVEL 6-10 Last Admin: 06/03/18 21:56 Dose: 1 tab Allopurinol (Zyloprim -) 200 mg PO DAILY [facility] Aspirin (Asa -) 325 mg PO DAILY [facility] Atorvastatin Calcium (Lipitor -) 40 mg PO HS [facility] Last Admin: 06/03/18 21:59 Dose: 40 mg Calcium Carbonate/Cholecalciferol (Os-Pedro 500+D -) 1 tab PO DAILY [facility] Cholecalciferol (Vitamin D3 -) 1,000 unit PO DAILY [facility] Hydralazine HCl (Apresoline -) 25 mg PO BID [facility] Last Admin: 06/03/18 21:59 Dose: 25 mg Sodium Chloride (Normal Saline -) 250 mls @ 3,000 mls/hr IV PRN PRN PRN Reason: Hypotension during Dialysis Stop: 06/04/18 11:12 Insulin Aspart (Novolog Vial Sliding Scale -) 1 vial SQ ACHS [facility]; Protocol Last Admin: 06/04/18 11:56 Dose: Not Given Isosorbide Mononitrate (Imdur -) 30 mg PO DAILY [facility] Levothyroxine Sodium (Synthroid -) 25 mcg PO DAILY@0700 [facility] Last Admin: 06/04/18 06:13 Dose: 25 mcg Metoprolol Succinate (Toprol Xl -) 100 mg PO HS [facility] Last Admin: 06/03/18 22:02 Dose: 100 mg Ondansetron HCl (Zofran Injection) 4 mg IVPUSH Q6H PRN PRN Reason: NAUSEA AND/OR VOMITING Stop: 06/04/18 17:09 Torsemide (Demadex -) 20 mg PO DAILY [facility] 88 year old woman with hx of CKD now stage 5, CHF, DM, Hyperlipidemia, Breast Cancer s/p mastectomy, CAD who presents with weakness and uremic symptoms to start dialysis. #CKDK stage 5, now ESRD to start HD #Chronic Anemia #Hx of CHF #Hypertension #Renal Osteodystrophy Tolerated first dialysis today, next session to be tomorrow s/p permacath and AVG placement will need outpatient HD placement to be arranged pt appears evolemic w/o evidence of acute CHF will continue CEDRIC and iron as needed with HD Would continue diuretics even after starting dialysis BP near goal presently Miguel Ramirez DO
[2018-06-04] MEDS: hydrALAZINE HCL 25 MG TABLET (FP) PO SCH ×2 (13:33→21:11)
[2018-06-04] MEDS: ISOSORBIDE MONONITRATE 30 MG TAB.SR.24H (FP) PO SCH (13:33)
[2018-06-04] MEDS: CHOLECALCIFEROL (VITAMIN D3) 1,000 UNIT TABLET (FP) PO SCH (13:33)
[2018-06-04] MEDS: CALCIUM 500MG/VIT-D 200 UNITS COMBO TABLET (FP) PO SCH (13:33)
[2018-06-04] MEDS: TORSEMIDE 20 MG TABLET (FP) PO SCH (13:33)
[2018-06-04] MEDS: ALLOPURINOL 100 MG TABLET (FP) PO SCH (13:34)
[2018-06-04] MEDS: ACETAMINOPHEN WITH CODEINE 300MG/30MG TABLET PO PRN ×2 (13:37→21:11)
[2018-06-04] MEDS: ATORVASTATIN CA 40 MG TABLET (FP) PO SCH (21:10)
[2018-06-05] MEDS: LEVOTHYROXINE NA 25 MCG TABLET (FP) PO SCH (06:01)
[2018-06-05] MEDS: INSULIN SLIDING SCALE (NOVOLOG) 1 VIAL SQ SCH ×2 (06:01→13:02)
[2018-06-05 06:49] LABS: ANION GAP 6 MMOL/L (8-16); BLOOD UREA NITROGEN 47 mg/dL (7-18); CALCIUM 8.4 mg/dL (8.5-10.1); CHLORIDE 105 mmol/L (98-107); CO2 29 mmol/L (21-32); CREATININE 2.9 mg/dL (0.55-1.3); GLUCOSE,RANDOM 97 mg/dL (74-106); POTASSIUM 4.1 mmol/L (3.5-5.1); SODIUM 140 mmol/L (136-145)
[2018-06-05 06:51] LABS: BASO % 1.1 % (0-2.0); EOS % 4.2 % (0-4.5); HEMATOCRIT 29.4 % (32.4-45.2); HEMOGLOBIN 9.4 GM/dL (10.7-15.3); LYMPH % 25.4 % (8-40); MCHC 32.1 g/dl (32.0-36.0); MEAN CELL VOLUME 99.7 fl (80-96); MEAN PLT VOLUME 11.1 fl (7.5-11.1); MONO % 10.7 % (3.8-10.2); NEUT % 58.6 % (42.8-82.8); PLATELET COUNT 133 K/MM3 (134-434); RBC 2.95 M/mm3 (3.60-5.2); RDW 14.3 % (11.6-15.6); WHITE BLOOD COUNT 6.5 K/mm3 (4.0-10.0)
[2018-06-05] MEDS: ACETAMINOPHEN WITH CODEINE 300MG/30MG TABLET PO PRN (07:05)
--- NOTE | 2018-06-05 08:57 | PN ---
Progress Note (short form) - Note Progress Note: Dr. Sweet to document today.
[2018-06-05] MEDS ORDERED: EPOETIN ALFA 3,000 UNIT/1 ML ML IVPUSH ONE (09:45)
[2018-06-05] MEDS ORDERED: ASPIRIN 325 MG TABLET PO SCH (10:00)
--- NOTE | 2018-06-05 10:05 | DS ---
Physical Examination Vital Signs: Vital Signs Temperature 98.0 F 06/05/18 09:40 Pulse Rate 59 L 06/05/18 09:45 Respiratory Rate 18 06/05/18 09:45 Blood Pressure 136/65 06/05/18 09:45 O2 Sat by Pulse Oximetry (%) 95 06/04/18 21:00 Constitutional: Yes: Well Nourished, No Distress, Calm Cardiovascular: Yes: Regular Rate and Rhythm Respiratory: Yes: WNL, Regular, CTA Bilaterally. No: Accessory Muscle Use, SOB , Tachypnea, Wheezes Gastrointestinal: Yes: WNL, Normal Bowel Sounds, Soft. No: Distention, Tenderness Renal/: Yes: WNL Extremities: Yes: WNL Edema: No Integumentary: Yes: Incision Wound/Incision: Yes: Dressing Dry and Intact, Other (LUE AV fistula +bruit/ thrill) Neurological: Yes: WNL, Alert, Oriented Psychiatric: Yes: WNL, Alert, Oriented Labs: CBC, BMP 06/05/18 05:30 06/05/18 05:30 Discharge Summary Reason For Visit: RENAL FAILURE Current Active Problems CKD (chronic kidney disease) (Acute) ESRD (end stage renal disease) (Acute) Hospital Course: 88 year old female admitted for worsening renal function w/ uremic symptoms. Permacath/AV fistula placed. Pt tolerated HD. Outpt HD set up for Sunday. Advise outpt follow up with PCP, Vascular, and Nephrology. Pt is medically stable for discharge home. Condition: Good - Instructions Diet, Activity, Other Instructions: Post-operative Instructions Wound: Keep your dressing clean and dry and in place for 72 hours. You may shower in 48 hours with a waterproof bag or Saran wrap over the original dressing. In 72 hours when you remove the dressing, you may wet the incision in the shower ONLY. Allow soap and water to run over the incision, do not scrub the incision, pat dry well after showering. Check the incision daily after removal of the dressing for redness or drainage. If you note any redness or drainage, contact your surgeon immediately. Do not swim or soak in water (bath/hot tub, etc) until cleared by your surgeon as this can lead to infection. Do not put creams or ointments on the wound until cleared by your surgeon. Diet: You may resume your regular diet unless otherwise instructed by your physician. Increased your fiber intake if taking narcotic pain medications as constipation is a common side effect. Pain Relief: Take pain medication as prescribed. Do not drive, drink alcohol or operate heavy machinery while taking narcotic pain medications. The pain medication you have been prescribed for pain contains Acetaminophen (Tylenol), do not take additional Tylenol with this pain medication. You should not exceed more than 3g (3000mg) of Tylenol in 24 hours as this can lead to liver damage or failure. Activity: No heavy lifting with your operative arm until cleared by your surgeon. Do no wear any occlusive jewlery on your operative arm as this can affect the functioning of your fistula. Follow-up Please call the office to schedule your follow up appointment in 2 weeks. Call your doctors office or go to the ER immediately if you develop: Trouble breathing, chest tightness or shortness of breath Oral temperature greater than 100.5 F Excessive redness, swelling, or drainage at the incision site. Foul odor from the incision. New, increasing pain/numbness/weakness or coolness in your arm. Referrals: Todd Caicedo MD [Staff Physician] - 2 Weeks Walker Padilla MD [Primary Care Provider] - 1 Week Miguel Ramirez MD [Staff Physician] - 1 Week Disposition: VNS/HOME HEALTH CARE - Home Medications Comprehensive Discharge Medication List: Ambulatory Orders Allopurinol [Zyloprim -] 200 mg PO DAILY 03/19/14 Aspirin [ASA -] 325 mg PO DAILY 03/19/14 Atorvastatin Ca [Lipitor] 40 mg PO HS 03/19/14 Cholecalciferol (Vitamin D3) [Vitamin D3] 1,000 unit PO DAILY 03/19/14 Metoprolol Succinate [Toprol XL -] 100 mg PO HS 03/19/14 Multivitamins [Multivit ([facility] Formulary)] 1 tab PO DAILY 03/19/14 Guar Gum [Benefiber] 1 each PO BID #0 packet 05/21/14 Calcium Carbonate/Vitamin D3 [Calcium 500-Vit D3 200 Caplet] 1 each PO DAILY 06/23 Levothyroxine [Synthroid -] 25 mcg PO DAILY 02/13/18 Torsemide [Demadex -] 20 mg PO DAILY #30 tablet 02/21/18 Isosorbide Mononitrate [Imdur -] 30 mg PO DAILY #30 tab.sr.24h 04/19/18 hydrALAZINE HCL [Apresoline -] 25 mg PO BID #30 tablet 04/19/18
[2018-06-05 12:58] VITALS: BP 148/81; PULSE 70; TEMP 97.7
[2018-06-05] MEDS: CALCIUM 500MG/VIT-D 200 UNITS COMBO TABLET (FP) PO SCH (13:00)
[2018-06-05] MEDS: hydrALAZINE HCL 25 MG TABLET (FP) PO SCH (13:00)
[2018-06-05] MEDS: ALLOPURINOL 100 MG TABLET (FP) PO SCH (13:00)
[2018-06-05] MEDS: ISOSORBIDE MONONITRATE 30 MG TAB.SR.24H (FP) PO SCH (13:00)
[2018-06-05] MEDS: CHOLECALCIFEROL (VITAMIN D3) 1,000 UNIT TABLET (FP) PO SCH (13:00)
[2018-06-05] MEDS: TORSEMIDE 20 MG TABLET (FP) PO SCH (13:00)
--- NOTE | 2018-06-07 10:05 | OP ---
DATE OF OPERATION: 06/03/2018 SURGEON: Todd Caicedo MD PROCEDURE: Placement of permacath and creation of arteriovenous fistula of the left arm. PREOPERATIVE DIAGNOSIS: End-stage renal disease. POSTOPERATIVE DIAGNOSIS: Infected graft of right arm with end-stage renal disease. ANESTHESIA: Fractional. ANESTHESIOLOGIST: Riana Peace MD OPERATIVE FINDINGS: The right internal jugular vein was patent. The left cephalic vein and brachial artery in the upper arm were patent and adequate in diameter for anastomosis. OPERATIVE PROCEDURE: Following routine patient identification, intravenous sedation was established. The right neck and chest were prepped with ChloraPrep. Using real time duplex imaging, the right internal jugular vein was identified. It was patent, compressible, with normal faded flow. Lidocaine 1% was infiltrated in the skin lateral to the vein, and then under ultrasound guidance, the vein was cannulated with a micropuncture needle. A wire was passed proximally into the superior vena cava. The needle was exchanged for a 5-Sami catheter. The wire was exchanged through the catheter for a J-tipped wire, which was advanced into the right atrium. Additional Xylocaine was then infiltrated on the chest wall and a stab wound made. A 19-cm permacath was advanced with a tunneler from chest to neck. The tract around the wire was dilated, and the introducer was placed over the wire into the superior vena cava. The catheter was hen advanced through the introducer and the tip positioned at the junction of the superior vena cava and right atrium. The introducer was peeled away. Each lumen of the catheter was aspirated for blood and flushed with saline and Heparin solution. The neck wound was closed with a subcuticular suture of 3-0 Vicryl, and the catheter was sutured to the skin at the exit site with 3-0 nylon. Sterile dressings were applied,. Attention was then turned to left arm, which was prepped with ChloraPrep. Xylocaine 1% was infiltrated in the antecubital fossa, and a longitudinal incision made. The cephalic vein was identified and carefully mobilized from the surrounding tissues. Side branches were ligated with silk ties and divided. The vein was ligated distally and incised. It was distended with heparin and papaverine solution. No. 5 and No. 8 feeding tubes were passed proximally without difficulty. The vein was filled with heparin solution, was occluded with a small bulldog clamp. The wound was deepened through the muscle fascia, and the brachial artery was mobilized. It was secured proximally with a vessel loop, and the distal branches were secured with vessel loops. Small side branches were ligated and divided. The artery was occluded with the vessel loops and opened on its exposed surface with a 6-mm arteriotomy. The end of the vein was then freed and spatulated, and anastomosed to the side of the artery with running suture of 6-0 Prolene. Prior to the completion of the suture line, the artery was allowed to back-bleed and flush, and the vein was flushed with heparin solution. Suture line was completed, and all vessels were released. There was good flow through the anastomosis with a thrill in the proximal vein. Bleeding from the suture line was controlled with Surgicel. When hemostasis was achieved, the wound was irrigated and closed with interrupted suture of 3-0 Vicryl and skin martinez. Sterile dressings were applied, and the patient was taken to the recovery room in stable condition. [place] [id number]
== END 2018-06-05 14:00 | disposition home health service (06) | DRG 264 ==
LOC: JER 07:20 → JERBED 08:56 → J8W 13:21
PROVIDERS: ADMIT Internal Medicine; ATTEND Internal Medicine
PROC: 02HV33Z Insertion of Infusion Device into Superior Vena Cava, Percutaneous Approach (ICD-10-PCS; 2018-06-03)
PROC: B548ZZA Ultrasonography of Superior Vena Cava, Guidance (ICD-10-PCS; 2018-06-03)
PROC: 03180ZD Bypass Left Brachial Artery to Upper Arm Vein, Open Approach (ICD-10-PCS; principal; 2018-06-03 16:00)
PROC: 5A1D70Z Performance of Urinary Filtration, Intermittent, Less than 6 Hours Per Day (ICD-10-PCS; 2018-06-03 16:00)
DX: I13.2 Hypertensive heart and chronic kidney disease with heart failure and with stage 5 chronic kidney disease, or end stage renal disease (principal); N18.6 End stage renal disease; I50.42 Chronic combined systolic (congestive) and diastolic (congestive) heart failure; E11.22 Type 2 diabetes mellitus with diabetic chronic kidney disease; I25.10 Atherosclerotic heart disease of native coronary artery without angina pectoris; Z85.3 Personal history of malignant neoplasm of breast; I44.0 Atrioventricular block, first degree; D64.9 Anemia, unspecified; E03.9 Hypothyroidism, unspecified
CPT/HCPCS: 36415; 71045-TC-FY; 74018-TC-FY; 76000-TC-FY; 80048; 80053; 80074; 82962; 83735; 84100; 85025; 85610; 85730; 86850; 86900; 86901; 93005; 93010; 94760; 97116-GP; 97161-GP; 99282-25; J0885; J1644

== ENCOUNTER 2018-08-26 06:17 | Day surgery (SDC) | payer BC ==
[2018-08-23 14:15] VITALS: BMI 28.6
[2018-08-26] MEDS ORDERED: HEPARIN NA (PORCINE) 5,000 UNITS/ML 1ML VIAL ONE (07:23)
[2018-08-26] MEDS ORDERED: POVIDONE-IODINE OINTMENT 10% - 28.4 GM TUBE ONE (07:23)
[2018-08-26] MEDS ORDERED: LIDOCAINE HCL 1%, 10 MG/ML (20ML VIAL) ONE ×2 (07:23→08:45)
--- NOTE | 2018-08-26 07:32 | HP ---
History & Physical Update - History History: No Change - Physical Physical: No Change - Assessment Assessment: No Change - Plan Plan: No Change (No change in medical history since preop evaluation done on with Dr Mead.)
[2018-08-26] MEDS ORDERED: MIDAZOLAM HCL 2 MG/2 ML SINGLE DOSE VIAL ONE ×2 (08:06→08:35)
--- NOTE | 2018-08-26 08:08 | HP ---
Satellite [facility] - Chief Complaint History of Present Illness: 88 year old woman with ESRD on HD. Left upper arm fistula has failed to mature. History Source: Medical Record Limitations to Obtaining History: No Limitations - Past Medical History Allergies/Adverse Reactions: Allergies Allergy/AdvReac Type Severity Reaction Status Date / Time metronidazole [From Flagyl] Allergy Severe Swelling Verified 08/26/18 06:59 Cardiovascular: Yes: CAD (s/p stents around 20 years ago ), CHF, HTN, Hyperlipdemia Renal/: Yes: Renal Failure, Other Heme/Onc: Yes: Cancer (R breast cacer- s/p partial masectomy) Musculoskeletal: Yes: Osteoarthritis Endocrine: Yes: Diabetes Mellitus - Current Medications Current Medications: Home Medications Medication Instructions Recorded Allopurinol [Zyloprim -] 100 mg PO BID 03/19/14 Aspirin [ASA -] 325 mg PO DAILY 03/19/14 Atorvastatin Ca [Lipitor] 40 mg PO HS 03/19/14 Cholecalciferol (Vitamin D3) 1,000 unit PO DAILY 03/19/14 [Vitamin D3] Metoprolol Succinate [Toprol XL -] 100 mg PO HS 03/19/14 Multivitamins [Multivit ([facility] 1 tab PO DAILY 03/19/14 Formulary)] Guar Gum [Benefiber] 1 each PO BID #0 packet 05/21/14 Levothyroxine [Synthroid -] 25 mcg PO DAILY 02/13/18 Torsemide [Demadex -] 20 mg PO DAILY #30 tablet 02/21/18 Isosorbide Mononitrate [Imdur -] 30 mg PO DAILY #30 tab.sr.24h 04/19/18 hydrALAZINE HCL [Apresoline -] 25 mg PO BID #30 tablet 04/19/18 Aspirin [ASA -] 81 mg PO DAILY 08/23/18 Satellite Physical Exam - Physical Examination Vital Signs: Vital Signs Period Temp Pulse Resp BP Sys/Dan Pulse Ox Last 24 Hr 97.6 F-97.6 F 68-68 20-20 134-134/69-69 99 General Appearance: Well Nourished ENT: Clear Lung: Clear to auscultation Heart: Regular rate & rhythm Abdomen: Soft Extremities: Other (Left brachial-cephalic fistula with distal thrill. Proximal vein small and very tortuous) Neurological: Intact Satellite Impression/Plan - Impression/Plan Impression: Immature AV fistula which would be difficult to repair. Operative Procedure: Placement AV graft left arm Date to be Performed: 08/26/18
[2018-08-26] MEDS ORDERED: ceFAZolin SODIUM 1 GM VIAL IVPB ONE (08:16)
[2018-08-26] MEDS ORDERED: LIDOCAINE HCL 1%, 10 MG/ML (20ML VIAL) NR ONE ×2 (08:32)
[2018-08-26] MEDS ORDERED: HEPARIN NA (PORCINE) 5,000 UNITS/ML 1ML VIAL SQ ONE (08:36)
[2018-08-26] MEDS ORDERED: PROPOFOL 20 ML ONE (08:40)
[2018-08-26] MEDS ORDERED: POVIDONE-IODINE OINTMENT 10% - 28.4 GM TUBE TP ONE (09:53)
[2018-08-26] MEDS ORDERED: ACETAMINOPHEN WITH CODEINE 300MG/30MG TABLET PO PRN (10:02)
--- NOTE | 2018-08-26 10:02 | OP ---
Operative Note - Note: Operative Date: 08/26/18 Pre-Operative Diagnosis: ESRD Operation: Placement AV graft left arm Findings: Patent axillary vein and distal AV fistula Implants: 6 mm PTFE graft Post-Operative Diagnosis: Same as Pre-op Surgeon: Todd Caicedo Special Loan Officer: Theodora Harris Anesthesiologist/INDEPENDENT SALES REPRESENTATIVE: Riana Peace MD Anesthesia: Fractional Estimated Blood Loss (mls): 30
--- NOTE | 2018-08-26 10:09 | SURG ---
Surgery Irrigation Teacher Note Irrigation Teacher: Theodora Harris PA-C (Suzy) Date of Service: 08/26/18 Diagnosis: ESRD Procedure: Placement AV graft left arm I was present for the entirety of the operative procedure. For further detail, please refer to operative report. Visit type - Case Type Case Type: Scheduled - Emergency Emergency Visit: No - New patient This patient is new to me today: Yes Date on this admission: 08/26/18 - Critical Care Critical Care patient: No
--- NOTE | 2018-08-26 11:30 | OP ---
DATE OF OPERATION: 08/26/2018 SURGEON: Todd Ansari M.D. TREATER HELPER: PAVEL Harris PROCEDURE: Placement arteriovenous graft, left arm. PREOPERATIVE DIAGNOSIS: Renal failure with immature arteriovenous fistula. POSTOPERATIVE DIAGNOSIS: Renal failure with immature arteriovenous fistula. ANESTHESIA: Fractional. ANESTHESIOLOGIST: Riana Peace MD OPERATIVE FINDINGS: Patient had previously created left upper arm brachial cephalic fistula which had failed to mature proximally. The axillary vein was patent. The distal fistula was patent. OPERATIVE PROCEDURE: Following routine patient identification with side and site verification, intravenous sedation was established. The left arm and axilla were prepped with ChloraPrep. A timeout was performed. One-percent lidocaine was infiltrated in the axilla and a longitudinal incision made. The subcutaneous tissue was divided using cautery for hemostasis. The axillary vein was mobilized from the surrounding tissues. It was secured with Vesseloops. Side branches were ligated and divided. Xylocaine was then infiltrated over the distal end of the AV fistula which was exposed with a longitudinal incision. Subcutaneous tissues were divided with cautery. The vessel was encircled with a Vesseloop. A curved metal tunneler was then used to connect the 2 incisions over the anterior aspect of the arm. A 6-mm PTFE graft was passed through the tunneler with care not twist it. The distal fistula was occluded with a vascular clamp, and it was then ligated proximally. A longitudinal venotomy was made measuring approximately 8 mm. The end of the graft was beveled and anastomosed to the side of the vein with running suture of 6-0 Prolene. Prior to completion of the suture line, the distal fistula was allowed to flush. Graft was occluded with clamp. Suture line was completed. The distal clamp was removed, and bleeding from the suture line was controlled with surgicel. The graft was pulled taught in its tunnel. The axillary vein was occluded with bulldog clamp and Vesseloop and opened on exposed surface with a 15-mm venotomy. The end of the graft was beveled and anastomosed to the side of the vein with running suture of 6-0 Prolene. Upon completion of the suture line, the vein was flushed with heparin and the graft was allowed to flush and filled with heparin. Suture line was completed. All clamps removed. There was good flow through the anastomosis. Bleeding from suture lines was controlled with surgicel. Hemostasis was achieved. The wounds were irrigated and closed with interrupted suture of 3-0 Vicryl and skin martinez. Sterile dressings were applied, and patient was brought to the recovery room in stable condition. TODD ANSARI M.D. [place]/[id number]
[2018-08-26 12:01] VITALS: BP 129/58; PULSE 65; TEMP 98
== END 2018-08-26 13:00 | disposition home or self-care (01) ==
LOC: JASU-SURG 06:17
PROVIDERS: ATTEND Surgery
PROC: 05L Upper Veins, Occlusion (ICD-10-PCS; principal; 2018-08-26 08:00)
DX: T82.898A Other specified complication of vascular prosthetic devices, implants and grafts, initial encounter (principal); I12.0 Hypertensive chronic kidney disease with stage 5 chronic kidney disease or end stage renal disease; E11.22 Type 2 diabetes mellitus with diabetic chronic kidney disease; N18.6 End stage renal disease; Z99.2 Dependence on renal dialysis
CPT/HCPCS: 36415; 84132; 94760; J1644

== ENCOUNTER 2018-09-24 18:45 | Inpatient (IN) | payer BC ==
--- NOTE | 2018-09-24 19:15 | PDOC ---
History of Present Illness - General Chief Complaint: Weakness Stated Complaint: WEAKNESS Time Seen by Provider: 09/24/18 19:15 History Source: Patient - History of Present Illness Initial Comments: 09/24/18 19:44 The patient is an 88 year old female with a PMH of ESRD on HD M/W/F (last HD yesterday), HTN, CAD s/p stent, Breast CA (s/p R mastectomy) who presents to our ED c/o acute onset of weakness. Patient states she was making meatballs and gravy when she suddenly felt like she couldn't catch her breath, lightheaded and had to sit down she also complained of non-specific chest pain. Symptoms resolved but then started again when she was trying to bread chicken. Patient called her neighbor who called 911. Allergy: Metronizadole (facial swelling) Surgical: stent,cataracts, lumpectomy, appendectomy Social: lifetime non-smoker, denies other toxic habits PMD: Dr. Padilla As per EMR patient was last evaluated in our ED in 05/2018 for renal failure, patient admitted with subsequent permacath placement and HD initiation. Past History - Past Medical History Allergies/Adverse Reactions: Allergies Allergy/AdvReac Type Severity Reaction Status Date / Time metronidazole [From Flagyl] Allergy Severe Swelling Verified 09/24/18 18:56 Home Medications: Ambulatory Orders Allopurinol [Zyloprim -] 100 mg PO BID 03/19/14 Aspirin [ASA -] 325 mg PO DAILY 03/19/14 Atorvastatin Ca [Lipitor] 40 mg PO HS 03/19/14 Cholecalciferol (Vitamin D3) [Vitamin D3] 1,000 unit PO DAILY 03/19/14 Metoprolol Succinate [Toprol XL -] 100 mg PO HS 03/19/14 Multivitamins [Multivit ([facility] Formulary)] 1 tab PO DAILY 03/19/14 Guar Gum [Benefiber] 1 each PO BID #0 packet 05/21/14 Levothyroxine [Synthroid -] 25 mcg PO DAILY 02/13/18 Torsemide [Demadex -] 20 mg PO DAILY #30 tablet 02/21/18 Isosorbide Mononitrate [Imdur -] 30 mg PO DAILY #30 tab.sr.24h 04/19/18 hydrALAZINE HCL [Apresoline -] 25 mg PO BID #30 tablet 04/19/18 Anemia: No Asthma: No Cancer: Yes (r breast 2016) Cardiac Disorders: Yes (STENT 20 YRS AGO) CVA: No COPD: No CHF: Yes (TAKES LASIX) Dementia: No Diabetes: Yes (borderline) Dialysis: Yes (MON, WED , FRI) GI Disorders: No Disorders: No HTN: Yes Hypercholesterolemia: Yes Liver Disease: No Seizures: No Thyroid Disease: No - Surgical History Abdominal Surgery: No Appendectomy: Yes Cardiac Surgery: Yes (ANGIO) Cholecystectomy: No Lung Surgery: No Neurologic Surgery: No Orthopedic Surgery: No - Immunization History Immunization Up to Date: Yes - Suicide/Smoking/Psychosocial Hx Smoking Status: No Smoking History: Never smoked Have you smoked in the past 12 months: No Number of Cigarettes Smoked Daily: 0 Hx Alcohol Use: No Drug/Substance Use Hx: No Substance Use Type: None Hx Substance Use Treatment: No Review of Systems - Review of Systems Constitutional: No: Chills, Fever HEENTM: No: Recent change in vision Respiratory: Yes: Shortness of Breath. No: Wheezing, Hemoptysis Cardiac (ROS): Yes: Chest Pain. No: Lightheadedness, Palpitations, Syncope ABD/GI: No: Constipated, Diarrhea, Nausea, Vomiting *Physical Exam - Vital Signs Last Vital Signs Temp Pulse Resp BP Pulse Ox 81 20 147/41 L 93 L 09/24/18 18:57 09/24/18 18:57 09/24/18 18:57 09/24/18 18:57 - Physical Exam General Appearance: Yes: Nourished, Appropriately Dressed HEENT: positive: Normal Voice, Hearing Grossly Normal Neck: positive: Trachea midline, Supple Respiratory/Chest: positive: Lungs Clear, Normal Breath Sounds Cardiovascular: positive: S1, S2, Edema, Other (aortic stenosis murmur) Vascular Pulses: Dorsalis-Pedis (R): 2+, Doralis-Pedis (L): 2+ Gastrointestinal/Abdominal: positive: Normal Bowel Sounds, Soft Extremity: positive: Normal Capillary Refill, Normal Inspection, Other (B/L LE xerostosis) Integumentary: positive: Normal Color, Dry, Warm Neurologic: positive: Fully Oriented, Alert Moderate Sedation - Procedure Monitoring Vital Signs: Procedure Monitoring Vital Signs Temperature Pulse Rate 81 09/24/18 18:57 Respiratory Rate 20 09/24/18 18:57 Blood Pressure 147/41 L 09/24/18 18:57 O2 Sat by Pulse Oximetry (%) 93 L 09/24/18 18:57 Heart Score/ECG Review - ECG Impressions Comment:: 09/25/18 03:25 NSR, LAD, LBBB, HR 72, QTc 505 ms - no acute changes ED Treatment Course - LABORATORY CBC & Chemistry Diagram: 09/24/18 18:57 09/24/18 20:24 Medical Decision Making - Medical Decision Making 09/24/18 19:55 88 year old female presents with acute onset of weakness, chest pressure. VS unremarkable. Frontal diagnosis: R/o ACS, MSK, Costochondritis, Electrolyte derangement, Esophageal Spasm, GERD. Will obtain basic labs, EKG, Troponin. Reassess. EKG non-ischemic as documented in EKG section of EMR 09/24/18 21:08 Troponin 0.06 (previous Troponin 0.08) - likely 2/2 to ischemic demand vs. suboptimal renal function CXR shows R sided pleural effusion R (not on previous CXR) - will admit for further evaluation including HD tomorrow. Patient reassessed @ bedside. VSS Amenable to admission. Case d/w Dr. Roberto, will admit to hospitalist medicine service for further evaluation. *DC/Admit/Observation/Transfer Diagnosis at time of Disposition: Pleural effusion - Discharge Dispostion Condition at time of disposition: Fair Decision to Admit order: Yes - Referrals - Patient Instructions - Post Discharge Activity
--- NOTE | 2018-09-24 19:19 | PDOC ---
Attending Attestation - HPI HPI: 09/24/18 20:00 The patient is an 88 year old female with a PMH of diastolic CHF, CKD, DM, HLD, HTN, breast cancer (right mastectomy, no chemo), and CAD who presents to the ER complaining of weakness, difficulty catching her breath, and lightheadedness today. Patient states she was cooking when she suddenly felt like she could not catch her breath and subsequently experienced lightheadedness. Patient sat down until her symptoms improved. Patient started to cook again later today and felt similar symptoms again. Patients neighbor activated EMS at this time and brought her to the ER. Patients last dialysis was yesterday and reports she was in her usual state of health then. Patient denies any leg swelling, chest pain, fevers, chills, nausea, vomiting, constipation, diarrhea, and abdominal pain. Allergies: metronidazole Surgeries: right partial mastectomy 2 years ago Social hx: Denies tobacco, alcohol, and substance abuse PCP: Dr. Padilla - Physicial Exam PE: 09/24/18 21:52 Agree with resident's exam. <Julia Cox - Last Filed: 09/24/18 21:52> - Resident Resident Name: Patricia Santana - ED Attending Attestation I have performed the following: I have examined & evaluated the patient, The case was reviewed & discussed with the resident, I agree w/resident's findings & plan - Medical Decision Making 09/24/18 21:55 88-year-old female with a history of end-stage renal disease presents to the emergency department with an episode of lightheadedness/near syncope and shortness of breath with chest pressure Chest x-ray shows a moderate right pleural effusion Patient is chest pain-free at this time with no acute respiratory distress She will be admitted for monitoring, initial troponin mildly elevated likely due to renal function <Ernestine Panchal - Last Filed: 09/24/18 21:57>
[2018-09-24 20:14] LABS: URINE APPEARANCE CLEAR; URINE BILIRUBIN NEGATIVE (<2.0 mg/dL); URINE COLOR LTYELLOW; URINE GLUCOSE (UA) NEGATIVE (NEGATIVE); URINE KETONE NEGATIVE (NEGATIVE); URINE LEUK ESTERASE NEGATIVE (NEGATIVE); URINE NITRITE NEGATIVE (NEGATIVE); URINE PROTEIN 2+ (NEGATIVE); URINE UROBILINOGEN NEGATIVE mg/dL (0.2-1.0)
[2018-09-24 20:22] LABS: EPI CELLS RARE /HPF (FEW); URINE HYALINE CAST 1 /lpf
[2018-09-24 20:41] LABS: BASO % 1.2 % (0-2.0); EOS % 1.5 % (0-4.5); HEMATOCRIT 37.5 % (32.4-45.2); HEMOGLOBIN 12.5 GM/dL (10.7-15.3); LYMPH % 19.1 % (8-40); MCH 34.4 pg (25.7-33.7); MCHC 33.4 g/dl (32.0-36.0); MEAN CELL VOLUME 102.7 fl (80-96); MEAN PLT VOLUME 9.9 fl (7.5-11.1); MONO % 9.7 % (3.8-10.2); NEUT % 68.5 % (42.8-82.8); PLATELET COUNT 154 K/MM3 (134-434); RBC 3.65 M/mm3 (3.60-5.2); RDW 15.5 % (11.6-15.6); WHITE BLOOD COUNT 5.7 K/mm3 (4.0-10.0)
[2018-09-24 21:04] LABS: ALBUMIN 3.4 g/dl (3.4-5.0); ALK PHOS 122 U/L (45-117); ANION GAP 9 MMOL/L (8-16); BILIRUBIN,TOTAL 0.4 mg/dL (0.2-1); BLOOD UREA NITROGEN 42 mg/dL (7-18); CHLORIDE 109 mmol/L (98-107); CO2 26 mmol/L (21-32); CREATININE 2.9 mg/dL (0.55-1.3); GLUCOSE,RANDOM 108 mg/dL (74-106); MAGNESIUM 1.6 mg/dL (1.8-2.4); POTASSIUM 4.1 mmol/L (3.5-5.1); SGOT/AST 17 U/L (15-37); SGPT/ALT 23 U/L (13-61); SODIUM 144 mmol/L (136-145); TOT PROT 6.8 g/dl (6.4-8.2)
--- NOTE | 2018-09-24 22:42 | PN ---
Teaching Attending Note Name of Resident: Radha Chin ATTENDING PHYSICIAN STATEMENT I saw and evaluated the patient. I reviewed the resident's note and discussed the case with the resident. I agree with the resident's findings and plan as documented. SUBJECTIVE: Patient is an 88 year old woman with a PMH of diastolic CHF, CKD, diet- controlled DM?, HLD, hypothyroidism, HTN, breast cancer (right mastectomy, no chemotherapy) and CAD who presents to the ER complaining of weakness, difficulty catching her breath, and lightheadedness today. Patient states she was cooking when she suddenly felt like she could not catch her breath and subsequently experienced lightheadedness. Patient sat down until her symptoms improved. Patient started to cook again later today and felt similar symptoms again. Patients neighbor activated EMS at this time and brought her to the ER. Has dyspnea on exertion. Patients last dialysis was yesterday and reports she was in her usual state of health then. Patient denies any leg swelling, chest pain, fevers, chills, nausea, vomiting, constipation, diarrhea, and abdominal pain. Has poor appetite. Has not been sleeping well because she usually sleeps on her belly but because of her right chest hemodialysis catheter she can no longer sleep on her belly. Was dialyzed yesterday for 3.45 hours. OBJECTIVE: Alert and looks weak. Not in respiratory distress. Vital Signs Period Temp Pulse Resp BP Sys/Dan Pulse Ox Last 24 Hr 66-81 16-20 147-150/41-54 93-97 HEENT: No Jaundice, eye redness or discharge, PERRLA, EOMI. Normocephalic, atraumatic. External ears are normal and hearing is grossly intact. No nasal discharge. Neck: Supple, nontender. No palpable adenopathy or thyromegaly. No JVD Chest: Good effort. Right chest permacath. Diffuse rhonchi. Clear to percussion. Heart: Regular. No S3, rub or murmur Abdomen: Not distended, soft, nontender and no HSM. No rebound or guarding. Normoactive bowel sounds. Ext: Peripheral pulses intact. No leg edema. Left arm AVF - good bruit and thrill. Skin: Warm and dry. No petechiae, rash or ecchymosis. Neuro: Alert. Oriented x3. CN 2-12 grossly intact. Sensation grossly intact in all four extremities and DTR are symmetric. Current Medications Generic Name Dose Route Start Last Admin Trade Name Amina PRN Reason Stop Dose Admin Aspirin 81 mg 09/25/18 10:00 Asa - PO DAILY [facility] Heparin Sodium (Porcine) 5,000 unit 09/25/18 06:00 Heparin - SQ TID [facility] Insulin Aspart 0 vial 09/25/18 07:00 Novolog Vial Sliding Scale - SQ ACHS [facility] Protocol Home Medications Medication Instructions Recorded Allopurinol [Zyloprim -] 100 mg PO BID 03/19/14 Aspirin [ASA -] 325 mg PO DAILY 03/19/14 Atorvastatin Ca [Lipitor] 40 mg PO HS 03/19/14 Cholecalciferol (Vitamin D3) 1,000 unit PO DAILY 03/19/14 [Vitamin D3] Metoprolol Succinate [Toprol XL -] 100 mg PO HS 03/19/14 Multivitamins [Multivit ([facility] 1 tab PO DAILY 03/19/14 Formulary)] Guar Gum [Benefiber] 1 each PO BID #0 packet 05/21/14 Levothyroxine [Synthroid -] 25 mcg PO DAILY 02/13/18 Torsemide [Demadex -] 20 mg PO DAILY #30 tablet 02/21/18 Isosorbide Mononitrate [Imdur -] 30 mg PO DAILY #30 tab.sr.24h 04/19/18 hydrALAZINE HCL [Apresoline -] 25 mg PO BID #30 tablet 04/19/18 Abnormal Lab Results 09/24/18 09/24/18 09/24/18 18:57 19:56 20:24 MCV 102.7 H MCH 34.4 H D-Dimer Chloride BUN Creatinine Random Glucose Magnesium Alkaline Phosphatase Troponin I 0.06 H Urine Protein 2+ H 09/24/18 09/24/18 20:24 20:24 MCV MCH D-Dimer 2118 H Chloride 109 H BUN 42 H Creatinine 2.9 H Random Glucose 108 H Magnesium 1.6 L Alkaline Phosphatase 122 H Troponin I Urine Protein ASSESSMENT AND PLAN: 1. Chest pain - Findings consistent with CHF exacerbation - though no obvious precipitating factor. Will rule out ACS, try high dose lasix and arrange for hemodialysis tomorrow. No acute ST-T wave changes on EKG. CXR shows cardiomegaly , pulmonary vascular congestion, pleural effusion and possible RLL infiltrate. Will get chest CT scan and repeat ECHO. ECHO from 02/15/18 was a "technically dificult" study but showed moderately reduced LV systolic function. 2. Diet-controlled DM? Will implement sliding scale insulin regimen. Provide comprehensive diabetes care with patient teaching and counseling about the importance of adherence to prescribed diabetes regimen, euglycemia, eye care and foot care. 3. CKD - Etiology unclear, though proteinuria will suggest diabetic nephropathy. Will consult nephrology to continue thrice weekly dialysis - enhanced dialytic fluid removal will improve CHF exacerbation. Discuss continued use of torsemide with underwriting consultant and check predialysis uric level - may be able to get of allopurinol. Avoid nephrotoxic agents such as NSAIDS, aminoglycosides, contrast dyes and certain Alternative medicine products. 4. Hypertension - Restart outpatient antihypertensive drugs and revise regimen to ensure smooth [id number] good BP control - but improved dialytic fluid removal may lead to reduced need for antihypertensive drugs. Nonpharmacologic measures to control hypertension like weight loss, salt restriction and exercise discussed. 5. DVT prophylaxis - Heparin 5000u sq tid. 6. Advance directives - Full code
--- NOTE | 2018-09-24 22:42 | HP ---
CHIEF COMPLAINT: shortness of breath PCP: Dr. Padilla Cardio: Dr. Ruiz Nephro: Dr. Araujo HISTORY OF PRESENT ILLNESS: 88F w/ pmhx of ESRD (MWF), HTN, HLD, CAD s/p stent, breast cx (s/p R partial mastectomy), NIDDM, diastolic/systolic CHF presents with 1 day history of sob. Pt reports the symptoms started while she was at home cooking she became acutely short of breath and had to stop and sit down. Her sob improved after sitting so she proceeded to continue her household tasks, but then she started becoming short of breath again. Pt complained of feeling hot during this episode , however when she took her temperature, she was afebrile. She subsequently called her neighbor for help and called EMS to take her to the hospital for further evaluation. Pt lives by herself in an apt. She ambulates with the assistance of a cane and does not report any use of home oxygen. She denies history of lung disease. During this episode, she denied headaches/dizziness, nausea/vomiting, chest pain /tightness/pressure, abd pain, urinary/bowel symptoms, blood in urine/stool. She denies feeling weakness in her legs, vision changes, cough, or sick contacts. ER course was notable for: (1) BUN/Cr 42/2.9, Mg 1.6, d-dimer 2118, Trop 0.06 (2) (3) Recent Travel: Denies PAST MEDICAL HISTORY: ESRD (MWF) HTN HLD CAD s/p stent Breast cx (s/p R partial mastectomy) NIDDM PAST SURGICAL HISTORY: stent placement cataract surgery R partial mastectomy appendectomy Social History: Smoking: Denies Alcohol: Denies Drugs: Denies Family History: Father- hx of alcohol abuse Brother- kidney cx, Alzheimer dementia Allergies metronidazole [From Flagyl] Allergy (Severe, Verified 09/24/18 18:56) Swelling HOME MEDICATIONS: Home Medications Medication Instructions Recorded Allopurinol [Zyloprim -] 100 mg PO BID 03/19/14 Aspirin [ASA -] 325 mg PO DAILY 03/19/14 Atorvastatin Ca [Lipitor] 40 mg PO HS 03/19/14 Cholecalciferol (Vitamin D3) 1,000 unit PO DAILY 03/19/14 [Vitamin D3] Metoprolol Succinate [Toprol XL -] 100 mg PO HS 03/19/14 Multivitamins [Multivit ([facility] 1 tab PO DAILY 03/19/14 Formulary)] Guar Gum [Benefiber] 1 each PO BID #0 packet 05/21/14 Levothyroxine [Synthroid -] 25 mcg PO DAILY 02/13/18 Torsemide [Demadex -] 20 mg PO DAILY #30 tablet 02/21/18 Isosorbide Mononitrate [Imdur -] 30 mg PO DAILY #30 tab.sr.24h 04/19/18 hydrALAZINE HCL [Apresoline -] 25 mg PO BID #30 tablet 04/19/18 REVIEW OF SYSTEMS CONSTITUTIONAL: Denies fever, chills, diaphoresis, generalized weakness; Admits to 50 lb weight loss within the past 1 year HEENT: Denies rhinorrhea, nasal congestion, throat pain, throat swelling, visual changes CARDIOVASCULAR: Denies chest pain, syncope, palpitations, irregular heart rate, lightheadedness, peripheral edema RESPIRATORY: Admits to shortness of breath, dyspnea w/ exertion; Denies cough, orthopnea, wheezing, stridor, hemoptysis GASTROINTESTINAL: Denies abdominal pain, abdominal distension, nausea, vomiting , diarrhea, constipation, melena, hematochezia GENITOURINARY: Denies dysuria, frequency, urgency, hesitancy, hematuria, flank pain, genital pain MUSCULOSKELETAL: Denies myalgia, arthralgia, joint swelling, back pain, neck pain ENDOCRINE: Admits to unexplained weight loss; Denies heat intolerance, cold intolerance NEUROLOGIC: Absent: headache, focal weakness or paresthesias, dizziness, unsteady gait, seizure, mental status changes, bladder or bowel incontinence PSYCHIATRIC: Absent: anxiety, depression, suicidal or homicidal ideation, hallucinations. PHYSICAL EXAMINATION Vital Signs - 24 hr 09/24/18 09/24/18 09/24/18 18:57 19:18 21:03 Pulse Rate 81 Pulse Rate [ 66 Right Radial] Respiratory 20 16 Rate Blood Pressure 147/41 L Blood Pressure 150/54 L [Right Arm] O2 Sat by Pulse 93 L 97 96 Oximetry (%) GENERAL: Awake, alert, and fully oriented, in no acute distress. Resting comfortably, cooperative and pleasant. HEENT: AT/NC. EOMI. JACLYN. Moist mucus membranes. NECK: Normal range of motion, supple without lymphadenopathy, JVD, or masses. LUNGS: b/l crackles heard in lower lung bases. Good inspiratory effort. No accessory muscle use noted. Symmetric chest rise. HEART: Regular rate and rhythm, normal S1 and S2 without murmur, rub or gallop. ABDOMEN: Large pannus. Soft, NT/ND. +BS in al 4Qs. No masses noted. MUSCULOSKELETAL: Normal range of motion at all joints. No bony deformities or tenderness. No CVA tenderness. UPPER EXTREMITIES: 2+ pulses, warm, well-perfused. No cyanosis. No clubbing. No peripheral edema. LUE AV fistula with palpable thrill. RUE AV fistula with palpable thrill, covered in dressing. LOWER EXTREMITIES: 2+ pulses, warm, well-perfused. R knee swelling. Mild ankle edema. NEUROLOGICAL: Normal speech. Unsteady gait. SKIN: fungus on all toe nails. Laboratory Results - last 24 hr 09/24/18 09/24/18 09/24/18 18:57 19:56 20:24 WBC 5.7 RBC 3.65 Hgb 12.5 Hct 37.5 D MCV 102.7 H MCH 34.4 H MCHC 33.4 RDW 15.5 Plt Count 154 MPV 9.9 D Absolute Neuts (auto) 3.9 Neutrophils % 68.5 Lymphocytes % 19.1 D Monocytes % 9.7 Eosinophils % 1.5 Basophils % 1.2 Nucleated RBC % 0 D-Dimer Sodium Potassium Chloride Carbon Dioxide Anion Gap BUN Creatinine Creat Clearance w eGFR Random Glucose Calcium Magnesium Total Bilirubin AST ALT Alkaline Phosphatase Creatine Kinase 31 Troponin I 0.06 H Total Protein Albumin Urine Color Ltyellow Urine Appearance Clear Urine pH 5.0 D Ur Specific [place] 1.010 Urine Protein 2+ H Urine Glucose (UA) Negative Urine Ketones Negative Urine Blood Negative Urine Nitrite Negative Urine Bilirubin Negative Urine Urobilinogen Negative Ur Leukocyte Esterase Negative Urine WBC (Auto) 1 Urine RBC (Auto) 1 Ur Epithelial Cells Rare Hyaline Casts 1 09/24/18 09/24/18 20:24 20:24 WBC RBC Hgb Hct MCV MCH MCHC RDW Plt Count MPV Absolute Neuts (auto) Neutrophils % Lymphocytes % Monocytes % Eosinophils % Basophils % Nucleated RBC % D-Dimer 2118 H Sodium 144 Potassium 4.1 Chloride 109 H Carbon Dioxide 26 Anion Gap 9 BUN 42 H Creatinine 2.9 H Creat Clearance w eGFR 15.35 Random Glucose 108 H Calcium 9.0 Magnesium 1.6 L Total Bilirubin 0.4 AST 17 ALT 23 Alkaline Phosphatase 122 H Creatine Kinase Troponin I Total Protein 6.8 Albumin 3.4 Urine Color Urine Appearance Urine pH Ur Specific [place] Urine Protein Urine Glucose (UA) Urine Ketones Urine Blood Urine Nitrite Urine Bilirubin Urine Urobilinogen Ur Leukocyte Esterase Urine WBC (Auto) Urine RBC (Auto) Ur Epithelial Cells Hyaline Casts CONSULTS: Cardio- Dr. Ruiz Nephro- Dr. Araujo IMAGING: * CXR: pending * EKG: NSR, LAD, LBBB, HR 72, QTc 505 ms * CT Chest w/o contrast: ([place]) B/l pleural fluid collections are nonspecific possibly related to pulm inflammation or fluid dynamics. Await final read. Previous imaging * Echo (02/20): Mild MV thickening. 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 ASSESSMENT/PLAN: 88F w/ pmhx of ESRD (MWF), HTN, HLD, CAD s/p stent, breast cx (s/p R partial mastectomy), NIDDM, diastolic/systolic CHF presents with 1 day history of sob. #Shortness of breath; likely 2/2 acute combined diastolic/systolic CHF exacerbation, r/o PE/ACS -Pt has history of diastolic/systolic CHF on Demadex. On PE she has b/l crackles -Pt currently making urine, will give Lasix 80 mg IVP x1 dose -Cardio consult ordered -CT chest ordered as some possible R effusion was seen on CXR -Echo ordered #Elevated troponins; Initial trop 0.06 -May be due to ESRD -EKG showed NSR, LAD, LBBB, HR 72, QTc 505 ms -trend trops at 2am -Avoid QTc prolonging agents #ESRD (MWF); BUN/Cr 42/2.9 -Pt states she is compliant with her dialysis schedule -Nephro consult ordered -Will need HD tomorrow #Hx of breast cancer; s/p R partial mastectomy, never on chemo -follow up with onc outpatient #Hx of NIDDM; Last reported A1c per patient was 5.1 -not currently on medications; diet controlled -cont to monitor #Prophylaxis -SQH #FEN -limit PO hydration -recheck lytes in AM -Renal diet dispo -admit to tele obs -medications need to be reconciled Visit type - Emergency Visit Emergency Visit: Yes ED Registration Date: 09/24/18 Care time: The patient presented to the Emergency Department on the above date and was hospitalized for further evaluation of their emergent condition. - New Patient This patient is new to me today: Yes Date on this admission: 09/25/18 - Critical Care Critical Care patient: No
[2018-09-25] MEDS ORDERED: FUROSEMIDE 100 MG/10 ML INJECTABLE VIAL IVPB ONE (01:31)
[2018-09-25] MEDS ORDERED: FUROSEMIDE 40 MG/4 ML INJECTABLE VIAL ONE (01:37)
[2018-09-25 05:53] LABS: BASO % 1.4 % (0-2.0); EOS % 2.8 % (0-4.5); HEMATOCRIT 34.7 % (32.4-45.2); HEMOGLOBIN 11.5 GM/dL (10.7-15.3); LYMPH % 20.6 % (8-40); MCH 33.8 pg (25.7-33.7); MEAN CELL VOLUME 102.3 fl (80-96); MEAN PLT VOLUME 9.5 fl (7.5-11.1); MONO % 10.4 % (3.8-10.2); NEUT % 64.8 % (42.8-82.8); PLATELET COUNT 145 K/MM3 (134-434); RDW 15.1 % (11.6-15.6); WHITE BLOOD COUNT 5.6 K/mm3 (4.0-10.0)
[2018-09-25] MEDS ORDERED: HEPARIN NA (PORCINE) 5,000 UNITS/ML 1ML VIAL ONE (06:13)
[2018-09-25] MEDS: HEPARIN NA (PORCINE) 5,000 UNITS/ML 1ML VIAL SQ SCH ×3 (06:17→21:25)
[2018-09-25 06:28] LABS: ALBUMIN 3.1 g/dl (3.4-5.0); ALK PHOS 113 U/L (45-117); ANION GAP 9 MMOL/L (8-16); BILIRUBIN,TOTAL 0.4 mg/dL (0.2-1); BLOOD UREA NITROGEN 46 mg/dL (7-18); CALCIUM 8.4 mg/dL (8.5-10.1); CHLORIDE 109 mmol/L (98-107); CO2 25 mmol/L (21-32); CREATININE 3.1 mg/dL (0.55-1.3); GLUCOSE,RANDOM 110 mg/dL (74-106); PHOSPHOROUS 3.6 mg/dL (2.5-4.9); POTASSIUM 3.7 mmol/L (3.5-5.1); SGOT/AST 18 U/L (15-37); SGPT/ALT 20 U/L (13-61); SODIUM 144 mmol/L (136-145); TOT PROT 6.2 g/dl (6.4-8.2); URIC ACID 3.8 mg/dL (2.6-7.2)
[2018-09-25] MEDS ORDERED: INSULIN SLIDING SCALE (NOVOLOG) 1 VIAL SQ SCH (07:00)
--- NOTE | 2018-09-25 08:36 | PN ---
Progress Note (short form) - Note Progress Note: Dr. Sweet to document today. On dialysis. SOB at home with no pedal edema yet bilateral rales. CT chest done; await report. Slight elevation of troponin. D-dimer elevated at 2118; ? venous duplex.
[2018-09-25] MEDS ORDERED: ASPIRIN 81 MG CHEWABLE TABLETS PO SCH (10:00)
--- NOTE | 2018-09-25 10:18 | CONSULT ---
Consult Consult Specialty:: Nephrology ( [facility]) Reason for Consultation:: The patient has ESRD - History of Present Illness Chief Complaint: This is an 88 y/o female with h/o ESRd admitted with shortness of breath. 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 Patient states she was making meatballs and gravy when she suddenly felt like she couldn't catch her breath, lightheaded and had to sit down she also felt that her heart was racing. Symptoms resolved but then started again later. She was brought in to the hosp by EMS. - History Source History Provided By: Patient Limitations to Obtaining History: No Limitations - Past Medical History Cardio/Vascular: Yes: CAD (s/p stents around 20 years ago ), CHF, HTN, Hyperlipdemia Renal/: Yes: Renal Failure, Cancer, Hemodialysis, Other Musculoskeletal: Yes: Osteoarthritis Endocrine: Yes: Diabetes Mellitus - Past Surgical History Past Surgical History: Yes: AV Fistula/Graft (Left arm), Mastectomy (partial R sided ) - Alcohol/Substance Use Hx Alcohol Use: No History of Substance Use: reports: None - Smoking History Smoking history: Never smoked Have you smoked in the past 12 months: No Aproximately how many cigarettes per day: 0 - Social History Usual Living Arrangement: Alone ADL: Independent History of Recent Travel: No Home Medications - Allergies Allergies/Adverse Reactions: Allergies Allergy/AdvReac Type Severity Reaction Status Date / Time metronidazole [From Flagyl] Allergy Severe Swelling Verified 09/24/18 18:56 - Home Medications Home Medications: Ambulatory Orders Allopurinol [Zyloprim -] 100 mg PO BID 03/19/14 Aspirin [ASA -] 325 mg PO DAILY 03/19/14 Atorvastatin Ca [Lipitor] 40 mg PO HS 03/19/14 Cholecalciferol (Vitamin D3) [Vitamin D3] 1,000 unit PO DAILY 03/19/14 Metoprolol Succinate [Toprol XL -] 100 mg PO HS 03/19/14 Multivitamins [Multivit ([facility] Formulary)] 1 tab PO DAILY 03/19/14 Guar Gum [Benefiber] 1 each PO BID #0 packet 05/21/14 Levothyroxine [Synthroid -] 25 mcg PO DAILY 02/13/18 Torsemide [Demadex -] 20 mg PO DAILY #30 tablet 02/21/18 Isosorbide Mononitrate [Imdur -] 30 mg PO DAILY #30 tab.sr.24h 04/19/18 hydrALAZINE HCL [Apresoline -] 25 mg PO BID #30 tablet 04/19/18 Family Disease History - Family Disease History Family Disease History: Other: Father (ETOH abuse), Brother (kidney CA, Alzheimer's dementia ) Review of Systems - Review of Systems Constitutional: reports: Weakness Eyes: reports: No Symptoms HENT: reports: No Symptoms Neck: reports: No Symptoms Cardiovascular: reports: Palpitations, Shortness of Breath, Other (some chest pressure) Respiratory: reports: Other Gastrointestinal: reports: Indigestion Genitourinary: reports: No Symptoms Musculoskeletal: reports: Back Pain, Muscle Pain Neurological: reports: No Symptoms Physical Exam Vital Signs: Vital Signs Temperature Pulse Rate 89 09/25/18 05:05 Respiratory Rate 18 09/25/18 05:05 Blood Pressure 150/58 L 09/25/18 05:05 O2 Sat by Pulse Oximetry (%) 97 09/25/18 05:05 Constitutional: Yes: No Distress, Anxious Eyes: Yes: Conjunctiva Clear HENT: Yes: Normocephalic Cardiovascular: Yes: Tachycardia, S1, S2 Respiratory: Yes: Accessory Muscle Use Gastrointestinal: Yes: Normal Bowel Sounds, Soft Renal/: No: Bladder Distention, CVA Tenderness - Left, CVA Tenderness - Right , Hematuria Musculoskeletal: Yes: Back Pain, Joint Stiffness Extremities: Yes: Other (AVF on the left arm) Labs: CBC, BMP 09/25/18 05:20 09/25/18 05:20 Problem List - Problems (1) ESRD (end stage renal disease) on dialysis Code(s): N18.6 - END STAGE RENAL DISEASE; Z99.2 - DEPENDENCE ON RENAL DIALYSIS (2) AVF (arteriovenous fistula) Code(s): I77.0 - ARTERIOVENOUS FISTULA, ACQUIRED (3) Anemia Code(s): D64.9 - ANEMIA, UNSPECIFIED (4) Pleural effusion Code(s): J90 - PLEURAL EFFUSION, NOT ELSEWHERE CLASSIFIED (5) CHF (congestive heart failure) Code(s): I50.9 - HEART FAILURE, UNSPECIFIED Qualifiers: Heart failure type: combined systolic and diastolic Heart failure chronicity: chronic Qualified Code(s): I50.42 - Chronic combined systolic ( congestive) and diastolic (congestive) heart failure Assessment/Plan The patient is an 88 year old female with 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 Patient states she was making meatballs and gravy when she suddenly felt like she couldn't catch her breath, lightheaded and had to sit down she also felt that her heart was racing. Symptoms resolved but then started again later. She was brought in to the hosp by EMS. Acute chest discomfort, with shortness of breath. Possible CHF. Acute myocardial ischemia also to be ruled out. ESRD, on Hemodialysis. The patient will get HD, once she is on a monitored bed. Thank you. Will follow with you. Maria A Araujo MD
--- NOTE | 2018-09-25 13:39 | PN ---
Progress Note, Physician Chief Complaint: Ms Lua says she is feeling tired today. Currently denies cp, sob, n/v. - Current Medication List Current Medications: Active Medications Allopurinol (Zyloprim -) 100 mg PO BID [facility] Aspirin (Asa -) 325 mg PO DAILY [facility] Atorvastatin Calcium (Lipitor -) 40 mg PO HS [facility] Cholecalciferol (Vitamin D3 -) 1,000 unit PO DAILY [facility] Epoetin Soto (Procrit -) 10,000 unit SQ ONCE ONE Stop: 09/25/18 10:32 Heparin Sodium (Porcine) (Heparin -) 5,000 unit SQ TID [facility] Last Admin: 09/25/18 06:17 Dose: 5,000 unit Hydralazine HCl (Apresoline -) 25 mg PO BID [facility] Isosorbide Mononitrate (Imdur -) 30 mg PO DAILY [facility] Levothyroxine Sodium (Synthroid -) 25 mcg PO 0700 [facility] Metoprolol Succinate (Toprol Xl -) 100 mg PO HS [facility] Multivitamins/Minerals/Vitamin C (Tab-A-Vit -) 1 tab PO DAILY [facility] - Objective Vital Signs: Vital Signs Temperature 36.5 C 09/25/18 11:39 Pulse Rate 100 H 09/25/18 11:39 Respiratory Rate 20 09/25/18 11:39 Blood Pressure 129/63 09/25/18 11:49 O2 Sat by Pulse Oximetry (%) 96 09/25/18 11:39 Constitutional: Yes: Well Nourished, No Distress, Calm Cardiovascular: Yes: Regular Rate and Rhythm. No: Gallop, Murmur, Rub Respiratory: Yes: Regular, CTA Bilaterally. No: Rales, Rhonchi, Wheezes Gastrointestinal: Yes: Normal Bowel Sounds, Soft. No: Distention, Tenderness Extremities: Yes: WNL Edema: Yes Edema: LLE: 2+ Labs: CBC, BMP 09/25/18 05:20 09/25/18 05:20 Problem List - Problems (1) Pleural effusion Assessment/Plan: -secondary to fluid overload -unclear if cause of shortness of breath -continue HD per nephrology Code(s): J90 - PLEURAL EFFUSION, NOT ELSEWHERE CLASSIFIED (2) ESRD (end stage renal disease) on dialysis Assessment/Plan: -nephrology consulted and following -to receive HD today Code(s): N18.6 - END STAGE RENAL DISEASE; Z99.2 - DEPENDENCE ON RENAL DIALYSIS (3) Acute on chronic diastolic heart failure Assessment/Plan: -s/p IV lasix -continue HD Code(s): I50.33 - ACUTE ON CHRONIC DIASTOLIC (CONGESTIVE) HEART FAILURE (4) Diabetes mellitus Assessment/Plan: -diet controlled Code(s): E11.9 - TYPE 2 DIABETES MELLITUS WITHOUT COMPLICATIONS Qualifiers: Diabetes mellitus type: type 2 Diabetes mellitus fci insulin use: without fci use Diabetes mellitus complication status: with kidney complications Diabetes mellitus complication detail: with chronic kidney disease Chronic kidney disease stage: stage 4 (severe) Qualified Code(s): E11.22 - Type 2 diabetes mellitus with diabetic chronic kidney disease; N18.4 - Chronic kidney disease, stage 4 (severe) (5) HLD (hyperlipidemia) Assessment/Plan: -continue statin Code(s): E78.5 - HYPERLIPIDEMIA, UNSPECIFIED Qualifiers: Hyperlipidemia type: pure hypercholesterolemia Qualified Code(s): E78.00 - Pure hypercholesterolemia, unspecified; E78.0 - Pure hypercholesterolemia (6) HTN (hypertension) Assessment/Plan: -continue home regimen Code(s): I10 - ESSENTIAL (PRIMARY) HYPERTENSION Qualifiers: Hypertension type: renovascular hypertension Qualified Code(s): I15.0 - Renovascular hypertension (7) D-dimer, elevated Assessment/Plan: -check venous duplex dopplers -also consult pulmonary to evaluate for PE -spiral CT scan vs V/Q if needed Code(s): R79.89 - OTHER SPECIFIED ABNORMAL FINDINGS OF BLOOD CHEMISTRY
[2018-09-25] MEDS ORDERED: EPOETIN ALFA 10,000 UNIT/1 ML VIAL IVPUSH ONE (14:00)
--- NOTE | 2018-09-25 14:27 | CON.CARD ---
Consult Consult Specialty:: Cardiology Referred by:: Javier Prakash Reason for Consultation:: GARCIA - History of Present Illness Chief Complaint: GARCIA History of Present Illness: 88 y/o woman h/o CAD s/p BMS LAD 11/22/1996, DM, HTN, hyperlipidemia, systolic dysfunction LVEF 41%, hypothyroidism, remote history PAF->SR [id number] 6 on no ac, ESRD on HD MWF, last saw Dr. Ruiz 07/05/2018 presented with weakness and difficulty breathing on exertion. Patient states she was making meatballs and gravy when she suddenly felt like she couldn't catch her breath, lightheaded and had to sit down she also felt that her heart was racing. Symptoms resolved but then started again later. She denies chest pain, true syncope, orthopnea, PND or LE edema. - History Source History Provided By: Patient Limitations to Obtaining History: No Limitations - Past Medical History Cardio/Vascular: Yes: CAD (s/p stents around 20 years ago ), CHF, HTN, Hyperlipdemia Renal/: Yes: Renal Failure, Cancer, Hemodialysis, Other ...LMP Comment: 58 y/o Musculoskeletal: Yes: Osteoarthritis Endocrine: Yes: Diabetes Mellitus - Past Surgical History Past Surgical History: Yes: AV Fistula/Graft (Left arm), Mastectomy (partial R sided ) - Alcohol/Substance Use Hx Alcohol Use: No History of Substance Use: reports: None - Smoking History Smoking history: Never smoked Have you smoked in the past 12 months: No Aproximately how many cigarettes per day: 0 - Social History Usual Living Arrangement: Alone ADL: Independent History of Recent Travel: No Home Medications - Allergies Allergies/Adverse Reactions: Allergies Allergy/AdvReac Type Severity Reaction Status Date / Time metronidazole [From Flagyl] Allergy Severe Swelling Verified 09/24/18 18:56 - Home Medications Home Medications: Ambulatory Orders Allopurinol [Zyloprim -] 100 mg PO BID 03/19/14 Aspirin [ASA -] 325 mg PO DAILY 03/19/14 Atorvastatin Ca [Lipitor] 40 mg PO HS 03/19/14 Cholecalciferol (Vitamin D3) [Vitamin D3] 1,000 unit PO DAILY 03/19/14 Metoprolol Succinate [Toprol XL -] 100 mg PO HS 03/19/14 Multivitamins [Multivit ([facility] Formulary)] 1 tab PO DAILY 03/19/14 Guar Gum [Benefiber] 1 each PO BID #0 packet 05/21/14 Levothyroxine [Synthroid -] 25 mcg PO DAILY 02/13/18 Torsemide [Demadex -] 20 mg PO DAILY #30 tablet 02/21/18 Isosorbide Mononitrate [Imdur -] 30 mg PO DAILY #30 tab.sr.24h 04/19/18 hydrALAZINE HCL [Apresoline -] 25 mg PO BID #30 tablet 04/19/18 Family Disease History - Family Disease History Family Disease History: Other: Father (ETOH abuse), Brother (kidney CA, Alzheimer's dementia ) Review of Systems - Review of Systems Respiratory: reports: SOB on Exertion Vital Signs: Vital Signs Temperature 98.0 F 09/25/18 13:19 Pulse Rate 96 H 09/25/18 13:19 Respiratory Rate 18 09/25/18 13:19 Blood Pressure 148/85 09/25/18 13:19 O2 Sat by Pulse Oximetry (%) 96 09/25/18 13:19 Constitutional: Yes: No Distress, Calm Neck: Yes: Supple Respiratory: Yes: Regular, Diminished Gastrointestinal: Yes: Normal Bowel Sounds, Soft Cardiovascular: Yes: Regular Rate and Rhythm JVD: No Carotid Bruit: No Heart Sounds: Yes: S1, S2 Murmur: Yes: Systolic Murmur, Grade 1 Edema: No - Other Data Labs, Other Data: CBC, BMP 09/25/18 05:20 09/25/18 05:20 Troponin, BNP 09/24/18 09/25/18 20:24 02:28 Troponin I 0.06 H 0.08 H Troponin, BNP 09/24/18 09/25/18 20:24 02:28 Troponin I 0.06 H 0.08 H Afib @ 100 IVCD Ejection Fraction %: LVEF > or = 40 % Imaging - Results Cat Scan: Report Reviewed (Mod right small left effusion) Problem List - Problems (1) Anemia Code(s): D64.9 - ANEMIA, UNSPECIFIED Qualifiers: Anemia type: due to chronic kidney disease Chronic kidney disease stage: on chronic dialysis Qualified Code(s): N18.6 - End stage renal disease; D63.1 - Anemia in chronic kidney disease; Z99.2 - Dependence on renal dialysis (2) ESRD (end stage renal disease) on dialysis Code(s): N18.6 - END STAGE RENAL DISEASE; Z99.2 - DEPENDENCE ON RENAL DIALYSIS (3) Pleural effusion Code(s): J90 - PLEURAL EFFUSION, NOT ELSEWHERE CLASSIFIED (4) Shortness of breath Code(s): R06.02 - SHORTNESS OF BREATH (5) Acute on chronic systolic and diastolic heart failure, NYHA class 3 Code(s): I50.43 - ACUTE ON CHRONIC COMBINED SYSTOLIC AND DIASTOLIC HRT FAIL (6) Demand ischemia Code(s): I24.8 - OTHER FORMS OF ACUTE ISCHEMIC HEART DISEASE (7) Diabetes mellitus Code(s): E11.9 - TYPE 2 DIABETES MELLITUS WITHOUT COMPLICATIONS Qualifiers: Diabetes mellitus type: type 2 Diabetes mellitus prison insulin use: without prison use Diabetes mellitus complication status: with kidney complications Diabetes mellitus complication detail: with chronic kidney disease Chronic kidney disease stage: stage 4 (severe) Qualified Code(s): E11.22 - Type 2 diabetes mellitus with diabetic chronic kidney disease; N18.4 - Chronic kidney disease, stage 4 (severe) (8) HLD (hyperlipidemia) Code(s): E78.5 - HYPERLIPIDEMIA, UNSPECIFIED Qualifiers: Hyperlipidemia type: pure hypercholesterolemia Qualified Code(s): E78.00 - Pure hypercholesterolemia, unspecified; E78.0 - Pure hypercholesterolemia (9) HTN (hypertension) Code(s): I10 - ESSENTIAL (PRIMARY) HYPERTENSION Qualifiers: Hypertension type: renovascular hypertension Qualified Code(s): I15.0 - Renovascular hypertension (10) Hypothyroidism Code(s): E03.9 - HYPOTHYROIDISM, UNSPECIFIED Qualifiers: Hypothyroidism type: unspecified Qualified Code(s): E03.9 - Hypothyroidism , unspecified Assessment/Plan Lexiscan MPI: 04/03/2018 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 Acute on chronic diastolic/systolic failure and R>L pleural effusions 2. 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 HTN/HCVD 4. Hyperlipidemia 5. Type 2 DM 6. Hypothyroidism 7. CAD s/p PCI, demand ischemia 8. Hyperuricemia 9. Remote h/o PAF->SR [id number] on no anticoagulation therapy 10. Anemia of CKD 11. Breast ca s/p mastectomy P: 1. HD per renal, continue Demadex 20 qd with monitor renal function and electrolytes, 2. Will continue to hold ARB given low eGFR, placed on Imdur 30 and hydralazine 25 bid instead with uptitration as tolerated 3. Continue ASA 325 qd, Lipitor 40 qhs, Toprol XL 100qd 4. DVT and GI prophylaxis 5. F/u with Dr. Ruiz upon d/c [phone] 6. Eventually patient will require right and left heart cardiac catheterization coronary angiography for further evaluation of the above-noted systolic left ventricular dysfunction once euvolemic now that she is dialysis dependent, may be performed as outpatient. 7. Thank you for consultative opportunity
--- NOTE | 2018-09-25 14:36 | PN ---
Progress Note (short form) - Note Progress Note: PULMONARY CONSULTATION DICTATED 09/25/18 IMP DYSPNEA ACUTE ON CHRONIC CHF BILATERAL PLEURAL EFFUSIONS LIKELY SECONDARY TO CHF + TROPONIN ASHD S/P STENT ELEVATED D-DIMER NON-SPECIFIC H/O BREST CA S/P PARTIAL MASTECTOMY ESRD ON HD HTN DM ANEMIA PLAN DUPLEX LOWER EXT HD PER RENAL O2 F/U CHESTS X-RAYS STRICT I+OS ECHO TREND TROPONIN MONITOR FABIOLA MARIANO Problem List - Problems (1) Shortness of breath Code(s): R06.02 - SHORTNESS OF BREATH (2) Anemia Code(s): D64.9 - ANEMIA, UNSPECIFIED (3) D-dimer, elevated Code(s): R79.89 - OTHER SPECIFIED ABNORMAL FINDINGS OF BLOOD CHEMISTRY (4) ESRD (end stage renal disease) on dialysis Code(s): N18.6 - END STAGE RENAL DISEASE; Z99.2 - DEPENDENCE ON RENAL DIALYSIS (5) Pleural effusion Code(s): J90 - PLEURAL EFFUSION, NOT ELSEWHERE CLASSIFIED (6) Acute on chronic diastolic heart failure Code(s): I50.33 - ACUTE ON CHRONIC DIASTOLIC (CONGESTIVE) HEART FAILURE (7) Acute on chronic systolic and diastolic heart failure, NYHA class 3 Code(s): I50.43 - ACUTE ON CHRONIC COMBINED SYSTOLIC AND DIASTOLIC HRT FAIL (8) Diabetes mellitus Code(s): E11.9 - TYPE 2 DIABETES MELLITUS WITHOUT COMPLICATIONS Qualifiers: Diabetes mellitus type: type 2 Diabetes mellitus predatory animal exterminator insulin use: without predatory animal exterminator use Diabetes mellitus complication status: with kidney complications Diabetes mellitus complication detail: with chronic kidney disease Chronic kidney disease stage: stage 4 (severe) Qualified Code(s): E11.22 - Type 2 diabetes mellitus with diabetic chronic kidney disease; N18.4 - Chronic kidney disease, stage 4 (severe) (9) Elevated troponin Code(s): R74.8 - ABNORMAL LEVELS OF OTHER SERUM ENZYMES (10) HLD (hyperlipidemia) Code(s): E78.5 - HYPERLIPIDEMIA, UNSPECIFIED Qualifiers: Hyperlipidemia type: pure hypercholesterolemia Qualified Code(s): E78.00 - Pure hypercholesterolemia, unspecified; E78.0 - Pure hypercholesterolemia (11) HTN (hypertension) Code(s): I10 - ESSENTIAL (PRIMARY) HYPERTENSION Qualifiers: Hypertension type: renovascular hypertension Qualified Code(s): I15.0 - Renovascular hypertension
--- NOTE | 2018-09-25 16:39 | CONS ---
DATE OF CONSULTATION: 09/25/2018 PULMONARY CONSULTATION REFERRING PHYSICIAN: Javier Sweet MD HISTORY OF PRESENT ILLNESS: The patient is an 88-year-old white female with a past medical history of end-stage renal disease on hemodialysis three times weekly, hypertension, ASHD status post stents, breast cancer status post right lumpectomy, mastectomy, postop not treated with chemotherapy, radiation or hormonal therapy. Nonsmoker. Admitted to [facility] with the acute onset of generalized weakness and shortness of breath. The patient states she was cooking at home when she suddenly felt like she could not catch her breath. She became lightheaded. She denies any nausea, vomiting or diaphoresis. She denies any chest pain although she had palpitations. Her symptoms resolved and then recurred, at which time she presented to the emergency room. In the ER, she underwent a CT scan of the chest which revealed bilateral pleural effusions and compression atelectasis at the bases. She underwent a D-dimer which was elevated at 2180. Her troponins were positive at 0.06. She was admitted to the telemetry unit for further monitoring. The patient denies any recurrent episodes since admission. She denies any shortness of breath at this time. She denies any history of COPD or asthma in the past. She denies any history of occupational exposures. She states that her breathing is normally well. She is able to ambulate well without any respiratory compromise. PAST MEDICAL HISTORY: ASHD status post stent, end-stage renal disease on hemodialysis three times weekly, hypertension, diabetes, hyperlipidemia, diastolic and systolic CHF, history of right partial mastectomy. REVIEW OF SYSTEMS: At this time, no orthopnea, PND, chest pain, palpitations, nausea, vomiting or shortness of breath. No abdominal pain, no lower extremity extremities edema. CURRENT MEDICATIONS: Heparin 5000 subcutaneous t.i.d., Zyloprim, Toprol XL, Apresoline, Lipitor, Imdur, aspirin, Synthroid, vitamin D-3. PHYSICAL EXAMINATION: General: The patient is an elderly white female, wide awake and alert, in no acute distress. Vital Signs: She is afebrile, heart rate 108, blood pressure is 139/64, respiratory rate 18, O2 saturation is 97% on room air. HEENT: Head is normocephalic, atraumatic. Neck: Intact. Heart: S1, S2. Chest: diminished breath sounds bilaterally. Abdomen: Soft. Bowel sounds are positive. Extremities: No cyanosis or edema. LABORATORY: BUN 46, creatinine 3.1. Initial troponin 0.06; followup 0.08, calcium 8.4, WBC is 5.6, hemoglobin 11.5, hematocrit 34.7, platelet count of 145,000. D-dimer is elevated at 2118; of note is previous in February of [address] shows moderate right and small left pleural effusions, consolidation atelectasis at the bases, large calcified mediastinal hilar adenopathy, calcified granuloma, left upper lobe, cardiomegaly, small pericardial effusion, dense calcifications at coronary arteries. IMPRESSION: 1. Acute onset of shortness of breath, likely [id number]-[id number] congestive heart failure. 2. Arteriosclerotic heart disease r/o acute coronary syndrome. 3. Bilateral pleural effusions, likely secondary to congestive heart failure. 4. Positive troponins. 5. Elevated D-dimer, nonspecific. 6. History of breast cancer status post partial mastectomy. 7. End-stage renal disease. 8. Diabetes. 9. Hypertension. PLAN: 1. Duplex of the lower extremities. 2. Hemodialysis as per Renal. 3. Supplemental O2. 4. Follow up chest x-rays. 5. Trend troponin. 6. Echocardiogram. 7. Strict I's and O's. AUSTIN MARIANO M.D. [id number] MTDD
[2018-09-25] MEDS ORDERED: CYCLOBENZAPRINE HCL 10 MG TABLET (FP) PO ONE (18:09)
[2018-09-25] MEDS: ATORVASTATIN CA 40 MG TABLET (FP) PO SCH (21:21)
[2018-09-25] MEDS: hydrALAZINE HCL 25 MG TABLET (FP) PO SCH (21:21)
[2018-09-25] MEDS: ALLOPURINOL 100 MG TABLET (FP) PO SCH (21:22)
--- NOTE | 2018-09-26 02:36 | EKG ---
Test Reason : Blood Pressure : / mmHG Vent. Rate : 106 BPM Atrial Rate : 097 BPM P-R Int : 000 ms QRS Dur : 136 ms QT Int : 396 ms P-R-T Axes : 000 -75 083 degrees QTc Int : 526 ms ATRIAL FIBRILLATION WITH RAPID VENTRICULAR RESPONSE WITH A COMPETING JUNCTIONAL PACEMAKER LEFT AXIS DEVIATION LEFT BUNDLE BRANCH BLOCK ABNORMAL ECG WHEN COMPARED WITH ECG OF 24-SEP-2018 20:02, ATRIAL FIBRILLATION HAS REPLACED SINUS RHYTHM T WAVE INVERSION NOW EVIDENT IN LATERAL LEADS Confirmed by JEAN PAUL RAZO MD ([id number]) on 09/26/2018 2:35:51 AM Referred By: Confirmed By:JEAN PAUL RAZO MD
--- NOTE | 2018-09-26 02:38 | EKG ---
Test Reason : Blood Pressure : / mmHG Vent. Rate : 072 BPM Atrial Rate : 072 BPM P-R Int : 190 ms QRS Dur : 138 ms QT Int : 462 ms P-R-T Axes : 072 -57 078 degrees QTc Int : 505 ms NORMAL SINUS RHYTHM LEFT AXIS DEVIATION LEFT BUNDLE BRANCH BLOCK ABNORMAL ECG WHEN COMPARED WITH ECG OF 03-JUN-2018 07:53, ABERRANT CONDUCTION IS NO LONGER PRESENT QT HAS SHORTENED Confirmed by DUNG BORRERO, JEAN PAUL ([id number]) on 09/26/2018 2:38:07 AM Referred By: Confirmed By:JEAN PAUL RAZO MD
[2018-09-26] MEDS: LEVOTHYROXINE NA 25 MCG TABLET (FP) PO SCH (06:25)
[2018-09-26] MEDS: HEPARIN NA (PORCINE) 5,000 UNITS/ML 1ML VIAL SQ SCH ×3 (06:26→21:28)
[2018-09-26] MEDS ORDERED: PROMETHAZINE HCL 25 MG/1 ML VIAL IVPB ONE (08:15)
[2018-09-26 08:27] LABS: BASO % 2.3 % (0-2.0); EOS % 1.4 % (0-4.5); HEMATOCRIT 38.7 % (32.4-45.2); HEMOGLOBIN 12.8 GM/dL (10.7-15.3); LYMPH % 21.2 % (8-40); MCH 33.6 pg (25.7-33.7); MCHC 33.1 g/dl (32.0-36.0); MEAN CELL VOLUME 101.6 fl (80-96); MEAN PLT VOLUME 9.6 fl (7.5-11.1); MONO % 9.4 % (3.8-10.2); NEUT % 65.7 % (42.8-82.8); PLATELET COUNT 156 K/MM3 (134-434); RBC 3.81 M/mm3 (3.60-5.2); WHITE BLOOD COUNT 6.7 K/mm3 (4.0-10.0)
--- NOTE | 2018-09-26 08:38 | PN ---
Progress Note (short form) - Note Progress Note: Dr. Sweet to document today. A.Fib and CHF in evidence with fatigue and leg cramps. Had dialysis yesterday. Discomfort left ear; no otoscope available.
[2018-09-26 09:02] LABS: ANION GAP 8 MMOL/L (8-16); BLOOD UREA NITROGEN 29 mg/dL (7-18); CHLORIDE 102 mmol/L (98-107); CO2 29 mmol/L (21-32); CREATININE 2.5 mg/dL (0.55-1.3); GLUCOSE,RANDOM 111 mg/dL (74-106); PHOSPHOROUS 3.2 mg/dL (2.5-4.9); POTASSIUM 4.1 mmol/L (3.5-5.1); SODIUM 139 mmol/L (136-145)
--- NOTE | 2018-09-26 09:39 | PN ---
Progress Note, Physician History of Present Illness: Dyspnea on exertion, near syncope and palpitations resolving post HD. - Current Medication List Current Medications: Active Medications Allopurinol (Zyloprim -) 100 mg PO BID [facility] Last Admin: 09/25/18 21:22 Dose: 100 mg Aspirin (Asa -) 325 mg PO DAILY [facility] Atorvastatin Calcium (Lipitor -) 40 mg PO HS [facility] Last Admin: 09/25/18 21:21 Dose: 40 mg Cholecalciferol (Vitamin D3 -) 1,000 unit PO DAILY [facility] Cyclobenzaprine HCl (Flexeril -) 5 mg PO ONCE ONE Stop: 09/25/18 18:10 Heparin Sodium (Porcine) (Heparin -) 5,000 unit SQ TID [facility] Last Admin: 09/26/18 06:26 Dose: 5,000 unit Hydralazine HCl (Apresoline -) 25 mg PO BID [facility] Last Admin: 09/25/18 21:21 Dose: 25 mg Isosorbide Mononitrate (Imdur -) 30 mg PO DAILY [facility] Levothyroxine Sodium (Synthroid -) 25 mcg PO 0700 [facility] Last Admin: 09/26/18 06:25 Dose: 25 mcg Metoprolol Succinate (Toprol Xl -) 100 mg PO HS [facility] Last Admin: 09/25/18 21:21 Dose: 100 mg Multivitamins/Minerals/Vitamin C (Tab-A-Vit -) 1 tab PO DAILY [facility] - Objective Vital Signs: Vital Signs Temperature 97.5 F L 09/26/18 05:00 Pulse Rate 102 H 09/26/18 05:00 Respiratory Rate 20 09/26/18 05:00 Blood Pressure 134/93 09/26/18 05:00 O2 Sat by Pulse Oximetry (%) 95 09/26/18 05:00 Constitutional: Yes: No Distress, Calm Neck: Yes: Supple Cardiovascular: Yes: Regular Rate and Rhythm Respiratory: Yes: Regular, Diminished Gastrointestinal: Yes: Normal Bowel Sounds, Soft Edema: No Labs: CBC, BMP 09/26/18 08:00 09/26/18 08:00 - ....Imaging EKG: Report Reviewed (Tele: NSR, no PAF) Problem List - Problems (1) Anemia Code(s): D64.9 - ANEMIA, UNSPECIFIED Qualifiers: Anemia type: due to chronic kidney disease Chronic kidney disease stage: on chronic dialysis Qualified Code(s): N18.6 - End stage renal disease; D63.1 - Anemia in chronic kidney disease; Z99.2 - Dependence on renal dialysis (2) ESRD (end stage renal disease) on dialysis Code(s): N18.6 - END STAGE RENAL DISEASE; Z99.2 - DEPENDENCE ON RENAL DIALYSIS (3) Pleural effusion Code(s): J90 - PLEURAL EFFUSION, NOT ELSEWHERE CLASSIFIED (4) Shortness of breath Code(s): R06.02 - SHORTNESS OF BREATH (5) Acute on chronic systolic and diastolic heart failure, NYHA class 3 Code(s): I50.43 - ACUTE ON CHRONIC COMBINED SYSTOLIC AND DIASTOLIC HRT FAIL (6) Demand ischemia Code(s): I24.8 - OTHER FORMS OF ACUTE ISCHEMIC HEART DISEASE (7) Diabetes mellitus Code(s): E11.9 - TYPE 2 DIABETES MELLITUS WITHOUT COMPLICATIONS Qualifiers: Diabetes mellitus type: type 2 Diabetes mellitus penitentiary insulin use: without oceanographic meteorologist use Diabetes mellitus complication status: with kidney complications Diabetes mellitus complication detail: with chronic kidney disease Chronic kidney disease stage: stage 4 (severe) Qualified Code(s): E11.22 - Type 2 diabetes mellitus with diabetic chronic kidney disease; N18.4 - Chronic kidney disease, stage 4 (severe) (8) HLD (hyperlipidemia) Code(s): E78.5 - HYPERLIPIDEMIA, UNSPECIFIED Qualifiers: Hyperlipidemia type: pure hypercholesterolemia Qualified Code(s): E78.00 - Pure hypercholesterolemia, unspecified; E78.0 - Pure hypercholesterolemia (9) HTN (hypertension) Code(s): I10 - ESSENTIAL (PRIMARY) HYPERTENSION Qualifiers: Hypertension type: renovascular hypertension Qualified Code(s): I15.0 - Renovascular hypertension (10) Hypothyroidism Code(s): E03.9 - HYPOTHYROIDISM, UNSPECIFIED Qualifiers: Hypothyroidism type: unspecified Qualified Code(s): E03.9 - Hypothyroidism , unspecified Assessment/Plan Lexiscan MPI: 04/03/2018 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 Acute on chronic diastolic/systolic failure and R>L pleural effusions 2. 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 HTN/HCVD 4. Hyperlipidemia 5. Type 2 DM 6. Hypothyroidism 7. CAD s/p PCI, demand ischemia 8. Hyperuricemia 9. Remote h/o PAF->SR [id number] on no anticoagulation therapy 10. Anemia of CKD 11. Breast ca s/p mastectomy P: 1. HD per renal, resume Demadex 20 qd with monitor renal function and electrolytes, 2. Will continue to hold ARB given low eGFR, placed on Imdur 30 and hydralazine 25 bid instead with uptitration as tolerated 3. Continue ASA 325 qd, Lipitor 40 qhs, Toprol XL 100qd 4. DVT and GI prophylaxis 5. F/u with Dr. Ruiz upon d/c [phone] 6. Eventually patient will require right and left heart cardiac catheterization coronary angiography for further evaluation of the above-noted systolic left ventricular dysfunction once euvolemic now that she is dialysis dependent, may be performed as outpatient. 7. D/c telemetry
--- NOTE | 2018-09-26 10:26 | PN ---
Progress Note, Physician Chief Complaint: The patient seen in telemetry. Still with some ' choking sensation" in the throat. Left ear feels clogged. Breathing has improved. 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 Patient states she was cooking when she suddenly felt like she couldn't catch her breath, lightheaded and had to sit down she also felt that her heart was racing. Symptoms resolved but then started again later. - Current Medication List Current Medications: Active Medications Allopurinol (Zyloprim -) 100 mg PO BID [facility] Last Admin: 09/25/18 21:22 Dose: 100 mg Aspirin (Asa -) 325 mg PO DAILY [facility] Atorvastatin Calcium (Lipitor -) 40 mg PO HS [facility] Last Admin: 09/25/18 21:21 Dose: 40 mg Cholecalciferol (Vitamin D3 -) 1,000 unit PO DAILY [facility] Cyclobenzaprine HCl (Flexeril -) 5 mg PO ONCE ONE Stop: 09/25/18 18:10 Heparin Sodium (Porcine) (Heparin -) 5,000 unit SQ TID [facility] Last Admin: 09/26/18 06:26 Dose: 5,000 unit Hydralazine HCl (Apresoline -) 25 mg PO BID [facility] Last Admin: 09/25/18 21:21 Dose: 25 mg Isosorbide Mononitrate (Imdur -) 30 mg PO DAILY [facility] Levothyroxine Sodium (Synthroid -) 25 mcg PO 0700 [facility] Last Admin: 09/26/18 06:25 Dose: 25 mcg Metoprolol Succinate (Toprol Xl -) 100 mg PO HS [facility] Last Admin: 09/25/18 21:21 Dose: 100 mg Multivitamins/Minerals/Vitamin C (Tab-A-Vit -) 1 tab PO DAILY [facility] - Objective Vital Signs: Vital Signs Temperature 97.5 F L 09/26/18 05:00 Pulse Rate 102 H 09/26/18 05:00 Respiratory Rate 20 09/26/18 05:00 Blood Pressure 134/93 09/26/18 05:00 O2 Sat by Pulse Oximetry (%) 95 09/26/18 05:00 Constitutional: Yes: Anxious, Pallor Eyes: Yes: Conjunctiva Clear HENT: Yes: Atraumatic Neck: Yes: Trachea Midline Cardiovascular: Yes: Regular Rate and Rhythm, S1, S2 Respiratory: Yes: CTA Bilaterally, Diminished Gastrointestinal: Yes: Normal Bowel Sounds, Soft. No: Tenderness Genitourinary: No: Bladder Distention, CVA Tenderness - Left, CVA Tenderness - Right, Hematuria Edema: No Neurological: Yes: Alert, Oriented Labs: CBC, BMP 09/26/18 08:00 09/26/18 08:00 Problem List - Problems (1) ESRD (end stage renal disease) on dialysis Code(s): N18.6 - END STAGE RENAL DISEASE; Z99.2 - DEPENDENCE ON RENAL DIALYSIS (2) AVF (arteriovenous fistula) Code(s): I77.0 - ARTERIOVENOUS FISTULA, ACQUIRED (3) Anemia Code(s): D64.9 - ANEMIA, UNSPECIFIED Qualifiers: Anemia type: due to chronic kidney disease Chronic kidney disease stage: on chronic dialysis Qualified Code(s): N18.6 - End stage renal disease; D63.1 - Anemia in chronic kidney disease; Z99.2 - Dependence on renal dialysis (4) Pleural effusion Code(s): J90 - PLEURAL EFFUSION, NOT ELSEWHERE CLASSIFIED (5) CHF (congestive heart failure) Code(s): I50.9 - HEART FAILURE, UNSPECIFIED Qualifiers: Heart failure type: combined systolic and diastolic Heart failure chronicity: chronic Qualified Code(s): I50.42 - Chronic combined systolic ( congestive) and diastolic (congestive) heart failure Assessment/Plan The patient is an 88 year old female with 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 Patient states she was making meatballs and gravy when she suddenly felt like she couldn't catch her breath, lightheaded and had to sit down she also felt that her heart was racing. Symptoms resolved but then started again later. She was brought in to the hosp by EMS. Acute chest discomfort, with shortness of breath. Possible CHF. Acute myocardial ischemia also to be ruled out. ESRD, on Hemodialysis. Had uneventful HD yesterday. Next dialysis tomorrow. Will restart Demadex. Thank you. Will follow with you. Maria A Araujo MD
--- NOTE | 2018-09-26 10:36 | PN ---
Physical Exam: SUBJECTIVE: Patient seen and examined complains of fullness in her right ear but deneis any change in hearing. Denies discharge. Reports feeling of nausea since yesterday. States breathing is better than yesterday but not to base line. OBJECTIVE: Vital Signs Period Temp Pulse Resp BP Sys/Dan Pulse Ox Last 24 Hr 97.2 F-98.2 F 58-108 16-20 98-148/48-94 95-96 GENERAL: The patient is awake, alert, and fully oriented, in no acute distress. HEAD: Normal with no signs of trauma. ENT: moist mucous membranes. NECK: Trachea midline, full range of motion, supple. LUNGS: Breath sounds equal, clear to auscultation bilaterally, no wheezes, minimal crackles on right side , no accessory muscle use. HEART: Regular rate and rhythm, S1, S2 without murmur, rub or gallop. ABDOMEN: Soft, nontender, nondistended, normoactive bowel sounds, no guarding, no rebound, EXTREMITIES: , warm, well-perfused, no tenderness NEUROLOGICAL: Normal speech, gait not observed. PSYCH: Normal mood, normal affect. SKIN: Warm, dry, Laboratory Results - last 24 hr 09/26/18 09/26/18 08:00 08:00 WBC 6.7 RBC 3.81 Hgb 12.8 Hct 38.7 MCV 101.6 H MCH 33.6 MCHC 33.1 RDW 15.0 Plt Count 156 MPV 9.6 Absolute Neuts (auto) 4.4 Neutrophils % 65.7 Lymphocytes % 21.2 Monocytes % 9.4 Eosinophils % 1.4 Basophils % 2.3 H Nucleated RBC % 0 Sodium 139 Potassium 4.1 Chloride 102 Carbon Dioxide 29 Anion Gap 8 BUN 29 H Creatinine 2.5 H Creat Clearance w eGFR 18.22 Random Glucose 111 H Calcium 9.0 Phosphorus 3.2 Magnesium 2.0 Active Medications Generic Name Dose Route Start Last Admin Trade Name Freq PRN Reason Stop Dose Admin Allopurinol 100 mg 09/25/18 22:00 09/25/18 21:22 Zyloprim - PO 100 mg BID ELHAM Administration Aspirin 325 mg 09/26/18 10:00 Asa - PO DAILY ELHAM Atorvastatin Calcium 40 mg 09/25/18 22:00 09/25/18 21:21 Lipitor - PO 40 mg HS ELHAM Administration Cholecalciferol 1,000 unit 09/26/18 10:00 Vitamin D3 - PO DAILY ELHAM Cyclobenzaprine HCl 5 mg 09/25/18 18:09 Flexeril - PO 09/25/18 18:10 ONCE ONE Heparin Sodium (Porcine) 5,000 unit 09/25/18 06:00 09/26/18 06:26 Heparin - SQ 5,000 unit TID ELHAM Administration Hydralazine HCl 25 mg 09/25/18 22:00 09/25/18 21:21 Apresoline - PO 25 mg BID ELHAM Administration Isosorbide Mononitrate 30 mg 09/26/18 10:00 Imdur - PO DAILY ELHAM Levothyroxine Sodium 25 mcg 09/26/18 07:00 09/26/18 06:25 Synthroid - PO 25 mcg 0700 ELHAM Administration Metoprolol Succinate 100 mg 09/25/18 22:00 09/25/18 21:21 Toprol Xl - PO 100 mg HS ELHAM Administration Multivitamins/Minerals/Vitamin C 1 tab 09/26/18 10:00 Tab-A-Vit - PO DAILY ELHAM Torsemide 100 mg 09/26/18 10:30 Demadex - PO DAILY [facility]HAM ASSESSMENT/PLAN: (1) Pleural effusion mild crackels on right side. Breathing better than yesterday tolerated HD yesterday. Next Hd tomorrow pt back on torsemide 20 monitor intake and output' low salt diet daily weight (2) ESRD (end stage renal disease) on dialysis Dr. Araujo on case: consult appreciated. on HD will go for HD tomorrow (3) Acute on chronic diastolic heart failure on torsemide home dose breathing improved (4) Diabetes mellitus :diet controlled bgm daily 5 HLD continue statin lipitor 40mg (6) HTN (hypertension) toprol xl 100 hydralazine 25 bid imdur 30 daily -continue home regimen (7) D-dimer, elevated venous duplex dopplers pending pulm consult appreciated Fluid: orlly allowed electrolyte; repeat in am nutrition; low salt and diabetic diet dvt pro; heparin bid gi pro; not required dispo: transfer med surg Visit type - Emergency Visit Emergency Visit: Yes ED Registration Date: 09/25/18 Care time: The patient presented to the Emergency Department on the above date and was hospitalized for further evaluation of their emergent condition. - New Patient This patient is new to me today: Yes Date on this admission: 09/26/18 - Critical Care Critical Care patient: No
--- NOTE | 2018-09-26 10:38 | PN ---
Progress Note, Physician History of Present Illness: PULMONARY ALERT,-RESP DISTRESS,C/O NAUSEA,-VOMITING - Current Medication List Current Medications: Active Medications Allopurinol (Zyloprim -) 100 mg PO BID [facility] Last Admin: 09/25/18 21:22 Dose: 100 mg Aspirin (Asa -) 325 mg PO DAILY [facility] Atorvastatin Calcium (Lipitor -) 40 mg PO HS [facility] Last Admin: 09/25/18 21:21 Dose: 40 mg Cholecalciferol (Vitamin D3 -) 1,000 unit PO DAILY [facility] Cyclobenzaprine HCl (Flexeril -) 5 mg PO ONCE ONE Stop: 09/25/18 18:10 Heparin Sodium (Porcine) (Heparin -) 5,000 unit SQ TID [facility] Last Admin: 09/26/18 06:26 Dose: 5,000 unit Hydralazine HCl (Apresoline -) 25 mg PO BID [facility] Last Admin: 09/25/18 21:21 Dose: 25 mg Isosorbide Mononitrate (Imdur -) 30 mg PO DAILY [facility] Levothyroxine Sodium (Synthroid -) 25 mcg PO 0700 [facility] Last Admin: 09/26/18 06:25 Dose: 25 mcg Metoprolol Succinate (Toprol Xl -) 100 mg PO HS [facility] Last Admin: 09/25/18 21:21 Dose: 100 mg Multivitamins/Minerals/Vitamin C (Tab-A-Vit -) 1 tab PO DAILY [facility] Torsemide (Demadex -) 100 mg PO DAILY [facility] - Objective Vital Signs: Vital Signs Temperature 97.5 F L 09/26/18 05:00 Pulse Rate 102 H 09/26/18 05:00 Respiratory Rate 20 09/26/18 05:00 Blood Pressure 134/93 09/26/18 05:00 O2 Sat by Pulse Oximetry (%) 95 09/26/18 05:00 Constitutional: Yes: Well Nourished, Calm Eyes: Yes: WNL HENT: Yes: WNL Neck: Yes: WNL Cardiovascular: Yes: Regular Rate and Rhythm, S1, S2 Respiratory: Yes: Diminished Gastrointestinal: Yes: Normal Bowel Sounds, Soft Extremities: Yes: WNL Edema: No Labs: CBC, BMP 09/26/18 08:00 09/26/18 08:00 Problem List - Problems (1) Shortness of breath Code(s): R06.02 - SHORTNESS OF BREATH (2) Anemia Code(s): D64.9 - ANEMIA, UNSPECIFIED Qualifiers: Anemia type: due to chronic kidney disease Chronic kidney disease stage: on chronic dialysis Qualified Code(s): N18.6 - End stage renal disease; D63.1 - Anemia in chronic kidney disease; Z99.2 - Dependence on renal dialysis (3) D-dimer, elevated Code(s): R79.89 - OTHER SPECIFIED ABNORMAL FINDINGS OF BLOOD CHEMISTRY (4) ESRD (end stage renal disease) on dialysis Code(s): N18.6 - END STAGE RENAL DISEASE; Z99.2 - DEPENDENCE ON RENAL DIALYSIS (5) Pleural effusion Code(s): J90 - PLEURAL EFFUSION, NOT ELSEWHERE CLASSIFIED (6) Acute on chronic diastolic heart failure Code(s): I50.33 - ACUTE ON CHRONIC DIASTOLIC (CONGESTIVE) HEART FAILURE (7) Acute on chronic systolic and diastolic heart failure, NYHA class 3 Code(s): I50.43 - ACUTE ON CHRONIC COMBINED SYSTOLIC AND DIASTOLIC HRT FAIL (8) Diabetes mellitus Code(s): E11.9 - TYPE 2 DIABETES MELLITUS WITHOUT COMPLICATIONS Qualifiers: Diabetes mellitus type: type 2 Diabetes mellitus equipment operator intermodal yard insulin use: without equipment operator intermodal yard use Diabetes mellitus complication status: with kidney complications Diabetes mellitus complication detail: with chronic kidney disease Chronic kidney disease stage: stage 4 (severe) Qualified Code(s): E11.22 - Type 2 diabetes mellitus with diabetic chronic kidney disease; N18.4 - Chronic kidney disease, stage 4 (severe) (9) Elevated troponin Code(s): R74.8 - ABNORMAL LEVELS OF OTHER SERUM ENZYMES (10) HLD (hyperlipidemia) Code(s): E78.5 - HYPERLIPIDEMIA, UNSPECIFIED Qualifiers: Hyperlipidemia type: pure hypercholesterolemia Qualified Code(s): E78.00 - Pure hypercholesterolemia, unspecified; E78.0 - Pure hypercholesterolemia (11) HTN (hypertension) Code(s): I10 - ESSENTIAL (PRIMARY) HYPERTENSION Qualifiers: Hypertension type: renovascular hypertension Qualified Code(s): I15.0 - Renovascular hypertension Assessment/Plan IMP DYSPNEA IMPROVED ACUTE ON CHRONIC CHF IMPROVED BILATERAL PLEURAL EFFUSIONS LIKELY SECONDARY TO CHF + TROPONIN ASHD S/P STENT ELEVATED D-DIMER NON-SPECIFIC H/O BREST CA S/P PARTIAL MASTECTOMY ESRD ON HD HTN DM ANEMIA PLAN DUPLEX LOWER EXTREMITIES HD PER RENAL O2 F/U CHESTS X-RAYS STRICT I+OS TREND TROPONIN MONITOR FABIOLA MARIANO Problem List - Problems (1) Shortness of breath Code(s): R06.02 - SHORTNESS OF BREATH (2) Anemia Code(s): D64.9 - ANEMIA, UNSPECIFIED (3) D-dimer, elevated Code(s): R79.89 - OTHER SPECIFIED ABNORMAL FINDINGS OF BLOOD CHEMISTRY (4) ESRD (end stage renal disease) on dialysis Code(s): N18.6 - END STAGE RENAL DISEASE; Z99.2 - DEPENDENCE ON RENAL DIALYSIS (5) Pleural effusion Code(s): J90 - PLEURAL EFFUSION, NOT ELSEWHERE CLASSIFIED (6) Acute on chronic diastolic heart failure Code(s): I50.33 - ACUTE ON CHRONIC DIASTOLIC (CONGESTIVE) HEART FAILURE (7) Acute on chronic systolic and diastolic heart failure, NYHA class 3 Code(s): I50.43 - ACUTE ON CHRONIC COMBINED SYSTOLIC AND DIASTOLIC HRT FAIL (8) Diabetes mellitus Code(s): E11.9 - TYPE 2 DIABETES MELLITUS WITHOUT COMPLICATIONS Qualifiers: Diabetes mellitus type: type 2 Diabetes mellitus equipment operator intermodal yard insulin use: without snf use Diabetes mellitus complication status: with kidney complications Diabetes mellitus complication detail: with chronic kidney disease Chronic kidney disease stage: stage 4 (severe) Qualified Code(s): E11.22 - Type 2 diabetes mellitus with diabetic chronic kidney disease; N18.4 - Chronic kidney disease, stage 4 (severe) (9) Elevated troponin Code(s): R74.8 - ABNORMAL LEVELS OF OTHER SERUM ENZYMES (10) HLD (hyperlipidemia) Code(s): E78.5 - HYPERLIPIDEMIA, UNSPECIFIED Qualifiers: Hyperlipidemia type: pure hypercholesterolemia Qualified Code(s): E78.00 - Pure hypercholesterolemia, unspecified; E78.0 - Pure hypercholesterolemia (11) HTN (hypertension) Code(s): I10 - ESSENTIAL (PRIMARY) HYPERTENSION Qualifiers: Hypertension type: renovascular hypertension Qualified Code(s): I15.0 - Renovascular hypertension
[2018-09-26] MEDS: hydrALAZINE HCL 25 MG TABLET (FP) PO SCH ×2 (11:06→21:27)
[2018-09-26] MEDS: CHOLECALCIFEROL (VITAMIN D3) 1,000 UNIT TABLET (FP) PO SCH (11:06)
[2018-09-26] MEDS: ALLOPURINOL 100 MG TABLET (FP) PO SCH ×2 (11:06→21:28)
[2018-09-26] MEDS: ISOSORBIDE MONONITRATE 30 MG TAB.SR.24H (FP) PO SCH (11:06)
[2018-09-26] MEDS: ASPIRIN 325 MG TABLET PO SCH (11:06)
[2018-09-26] MEDS: MULTIVITAMINS (DAILY MVI) TABLET (FP) PO SCH (11:06)
--- NOTE | 2018-09-26 12:12 | ECHO ---
Name: LUCA ECHEVARRIA Exam:Adult Echocardiogram Study Date: 09/26/2018 07:35 AM Age: 88 yrs Reason For Study: SOB Height: 59 in Weight: 141 lb BSA: 1.6 m2 MMode/2D Measurements & Calculations IVSd: 1.1 cm Ao root diam: 3.0 cm LVIDd: 5.4 cm LA dimension: 4.0 cm LVIDs: 4.2 cm LVPWd: 1.0 cm EDV(Teich): 140.7 ml LVOT diam: 2.0 cm ESV(Teich): 79.7 ml LAV (MOD-bp): 76.6 ml Doppler Measurements & Calculations MV E max paulette: 114.0 cm/sec MV A max paulette: 47.5 cm/sec MV dec slope: 1548 cm/sec2 MV E/A: 2.4 Ao V2 max: 186.0 cm/sec AI max paulette: 331.2 cm/sec Ao max P.8 mmHg AI max P.9 mmHg Ao V2 mean: 119.7 cm/sec AI dec slope: 249.4 cm/sec2 Ao mean P.2 mmHg Ao V2 VTI: 37.1 cm AI P1/2t: 389.0 msec MR max paulette: 378.5 cm/sec TR max paulette: 252.8 cm/sec MR max P.4 mmHg TR max P.7 mmHg Med Peak E' Paulette: 4.7 cm/sec Med E/e': 24.4 Lat Peak E' Paulette: 5.4 cm/sec Lat E/e': 21.0 Procedure A complete two-dimensional transthoracic echocardiogram was performed (2D, M-mode, Doppler and color flow Doppler). Left Ventricle The left ventricle is normal in size. Left ventricular systolic function is severely reduced. Ejectio n Fraction = 25-30%. There is severe global hypokinesis of the left ventricle. Right Ventricle The right ventricle is normal in size and function. Atria The left atrium is mildly dilated. The right atrium is mildly dilated. Mitral Valve There is mild mitral regurgitation. Tricuspid Valve There is mild to moderate tricuspid regurgitation. Right ventricular systolic pressure is normal. Aortic Valve No hemodynamically significant valvular aortic stenosis. Mild aortic regurgitation. Pulmonic Valve There is no pulmonic valvular regurgitation. Great Vessels The aortic root is normal size. Pericardium/Pleura There is no pericardial effusion. Interpretation Summary Left ventricular systolic function is severely reduced. There is severe global hypokinesis of the left ventricle. The right ventricle is normal in size and function. The left atrium is mildly dilated. The right atrium is mildly dilated. There is mild mitral regurgitation. There is mild to moderate tricuspid regurgitation. Mild aortic regurgitation. MD Ismael Garcias 09/26/2018 12:11 PM
[2018-09-26] MEDS: TORSEMIDE 100 MG TABLET PO SCH (13:06)
--- NOTE | 2018-09-26 14:35 | PN ---
Teaching Attending Note Name of Resident: Benjie Trinidad ATTENDING PHYSICIAN STATEMENT I saw and evaluated the patient. I reviewed the resident's note and discussed the case with the resident. I agree with the resident's findings and plan as documented. SUBJECTIVE: Ms Lua says her L ear feels clogged and she feels nauseated. 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 Assessment/Plan: -nephrology consulted and following -to receive HD today Code(s): N18.6 - END STAGE RENAL DISEASE; Z99.2 - DEPENDENCE ON RENAL DIALYSIS (3) Acute on chronic diastolic heart failure Assessment/Plan: -continue HD per nephrology for diuresis -demadex restarted Code(s): I50.33 - ACUTE ON CHRONIC DIASTOLIC (CONGESTIVE) HEART FAILURE (4) Diabetes mellitus Assessment/Plan: -diet controlled Code(s): E11.9 - TYPE 2 DIABETES MELLITUS WITHOUT COMPLICATIONS Qualifiers: Diabetes mellitus type: type 2 Diabetes mellitus assisted insulin use: without local company intermodal truck driver use Diabetes mellitus complication status: with kidney complications Diabetes mellitus complication detail: with chronic kidney disease Chronic kidney disease stage: stage 4 (severe) Qualified Code(s): E11.22 - Type 2 diabetes mellitus with diabetic chronic kidney disease; N18.4 - Chronic kidney disease, stage 4 (severe) (5) HLD (hyperlipidemia) Assessment/Plan: -continue statin Code(s): E78.5 - HYPERLIPIDEMIA, UNSPECIFIED Qualifiers: Hyperlipidemia type: pure hypercholesterolemia Qualified Code(s): E78.00 - Pure hypercholesterolemia, unspecified; E78.0 - Pure hypercholesterolemia (6) HTN (hypertension) Assessment/Plan: -continue home regimen Code(s): I10 - ESSENTIAL (PRIMARY) HYPERTENSION Qualifiers: Hypertension type: renovascular hypertension Qualified Code(s): I15.0 - Renovascular hypertension (7) D-dimer, elevated Assessment/Plan: -appreciate pulmonary assistance -venous duplex dopplers negative -ECHO showing L sided HF but normal R sided heart function -do not think it is PE as breathing improved with HD and diuresis -monitor Code(s): R79.89 - OTHER SPECIFIED ABNORMAL FINDINGS OF BLOOD CHEMISTRY Problem List - Problems (1) Pleural effusion Code(s): J90 - PLEURAL EFFUSION, NOT ELSEWHERE CLASSIFIED (2) ESRD (end stage renal disease) on dialysis Code(s): N18.6 - END STAGE RENAL DISEASE; Z99.2 - DEPENDENCE ON RENAL DIALYSIS (3) Acute on chronic diastolic heart failure Code(s): I50.33 - ACUTE ON CHRONIC DIASTOLIC (CONGESTIVE) HEART FAILURE (4) Diabetes mellitus Code(s): E11.9 - TYPE 2 DIABETES MELLITUS WITHOUT COMPLICATIONS Qualifiers: Diabetes mellitus type: type 2 Diabetes mellitus local company intermodal truck driver insulin use: without local company intermodal truck driver use Diabetes mellitus complication status: with kidney complications Diabetes mellitus complication detail: with chronic kidney disease Chronic kidney disease stage: stage 4 (severe) Qualified Code(s): E11.22 - Type 2 diabetes mellitus with diabetic chronic kidney disease; N18.4 - Chronic kidney disease, stage 4 (severe) (5) HLD (hyperlipidemia) Code(s): E78.5 - HYPERLIPIDEMIA, UNSPECIFIED Qualifiers: Hyperlipidemia type: pure hypercholesterolemia Qualified Code(s): E78.00 - Pure hypercholesterolemia, unspecified; E78.0 - Pure hypercholesterolemia (6) HTN (hypertension) Code(s): I10 - ESSENTIAL (PRIMARY) HYPERTENSION Qualifiers: Hypertension type: renovascular hypertension Qualified Code(s): I15.0 - Renovascular hypertension (7) D-dimer, elevated Code(s): R79.89 - OTHER SPECIFIED ABNORMAL FINDINGS OF BLOOD CHEMISTRY
[2018-09-26] MEDS ORDERED: PT OWN MED DRAWER 7, Y5N ONE (15:06)
[2018-09-26] MEDS: ATORVASTATIN CA 40 MG TABLET (FP) PO SCH (21:27)
[2018-09-27 09:01] LABS: ALBUMIN 3.2 g/dl (3.4-5.0); ALK PHOS 119 U/L (45-117); ANION GAP 11 MMOL/L (8-16); BILIRUBIN,TOTAL 0.6 mg/dL (0.2-1); BLOOD UREA NITROGEN 42 mg/dL (7-18); CALCIUM 8.7 mg/dL (8.5-10.1); CHLORIDE 101 mmol/L (98-107); CO2 26 mmol/L (21-32); CREATININE 3.2 mg/dL (0.55-1.3); GLUCOSE,RANDOM 77 mg/dL (74-106); POTASSIUM 3.7 mmol/L (3.5-5.1); SGOT/AST 20 U/L (15-37); SGPT/ALT 25 U/L (13-61); SODIUM 139 mmol/L (136-145); TOT PROT 6.3 g/dl (6.4-8.2)
[2018-09-27] MEDS: HEPARIN NA (PORCINE) 5,000 UNITS/ML 1ML VIAL SQ SCH (09:07)
[2018-09-27] MEDS: LEVOTHYROXINE NA 25 MCG TABLET (FP) PO SCH (09:07)
[2018-09-27] MEDS: MULTIVITAMINS (DAILY MVI) TABLET (FP) PO SCH (09:08)
[2018-09-27] MEDS: TORSEMIDE 100 MG TABLET PO SCH (09:08)
[2018-09-27] MEDS: hydrALAZINE HCL 25 MG TABLET (FP) PO SCH ×2 (09:08→21:37)
[2018-09-27] MEDS: CHOLECALCIFEROL (VITAMIN D3) 1,000 UNIT TABLET (FP) PO SCH (09:08)
[2018-09-27] MEDS: ASPIRIN 325 MG TABLET PO SCH (09:08)
[2018-09-27] MEDS: ISOSORBIDE MONONITRATE 30 MG TAB.SR.24H (FP) PO SCH (09:08)
[2018-09-27] MEDS: ALLOPURINOL 100 MG TABLET (FP) PO SCH ×2 (09:09→21:37)
--- NOTE | 2018-09-27 09:23 | PN ---
Progress Note, Physician History of Present Illness: Dyspnea on exertion, near syncope and palpitations resolving post HD. Episode of rapid afib yesterday, back in SR. - Current Medication List Current Medications: Active Medications Allopurinol (Zyloprim -) 100 mg PO BID [facility] Last Admin: 09/27/18 09:09 Dose: Not Given Aspirin (Asa -) 325 mg PO DAILY [facility] Last Admin: 09/27/18 09:08 Dose: Not Given Atorvastatin Calcium (Lipitor -) 40 mg PO HS [facility] Last Admin: 09/26/18 21:27 Dose: 40 mg Cholecalciferol (Vitamin D3 -) 1,000 unit PO DAILY [facility] Last Admin: 09/27/18 09:08 Dose: Not Given Cyclobenzaprine HCl (Flexeril -) 5 mg PO ONCE ONE Stop: 09/25/18 18:10 Heparin Sodium (Porcine) (Heparin -) 5,000 unit SQ TID [facility] Last Admin: 09/27/18 09:07 Dose: Not Given Hydralazine HCl (Apresoline -) 25 mg PO BID [facility] Last Admin: 09/27/18 09:08 Dose: Not Given Isosorbide Mononitrate (Imdur -) 30 mg PO DAILY [facility] Last Admin: 09/27/18 09:08 Dose: Not Given Levothyroxine Sodium (Synthroid -) 25 mcg PO 0700 [facility] Last Admin: 09/27/18 09:07 Dose: Not Given Metoprolol Succinate (Toprol Xl -) 100 mg PO DAILY [facility] Last Admin: 09/27/18 09:08 Dose: Not Given Multivitamins/Minerals/Vitamin C (Tab-A-Vit -) 1 tab PO DAILY [facility] Last Admin: 09/27/18 09:08 Dose: Not Given Torsemide (Demadex -) 100 mg PO DAILY [facility] Last Admin: 09/27/18 09:08 Dose: Not Given - Objective Vital Signs: Vital Signs Temperature 97.6 F 09/27/18 05:00 Pulse Rate 59 L 09/27/18 05:00 Respiratory Rate 18 09/27/18 05:00 Blood Pressure 144/62 09/27/18 05:00 O2 Sat by Pulse Oximetry (%) 94 L 09/27/18 05:00 Constitutional: Yes: No Distress, Calm Neck: Yes: Supple Cardiovascular: Yes: Regular Rate and Rhythm Respiratory: Yes: Regular, Diminished Gastrointestinal: Yes: Normal Bowel Sounds, Soft Edema: No Labs: CBC, BMP 09/27/18 06:25 09/27/18 06:25 - ....Imaging EKG: Report Reviewed (Tele: ERIK with RVR->SR) Problem List - Problems (1) Anemia Code(s): D64.9 - ANEMIA, UNSPECIFIED Qualifiers: Anemia type: due to chronic kidney disease Chronic kidney disease stage: on chronic dialysis Qualified Code(s): N18.6 - End stage renal disease; D63.1 - Anemia in chronic kidney disease; Z99.2 - Dependence on renal dialysis (2) ESRD (end stage renal disease) on dialysis Code(s): N18.6 - END STAGE RENAL DISEASE; Z99.2 - DEPENDENCE ON RENAL DIALYSIS (3) Pleural effusion Code(s): J90 - PLEURAL EFFUSION, NOT ELSEWHERE CLASSIFIED (4) Shortness of breath Code(s): R06.02 - SHORTNESS OF BREATH (5) Acute on chronic systolic and diastolic heart failure, NYHA class 3 Code(s): I50.43 - ACUTE ON CHRONIC COMBINED SYSTOLIC AND DIASTOLIC HRT FAIL (6) Demand ischemia Code(s): I24.8 - OTHER FORMS OF ACUTE ISCHEMIC HEART DISEASE (7) Diabetes mellitus Code(s): E11.9 - TYPE 2 DIABETES MELLITUS WITHOUT COMPLICATIONS Qualifiers: Diabetes mellitus type: type 2 Diabetes mellitus oysterman insulin use: without oysterman use Diabetes mellitus complication status: with kidney complications Diabetes mellitus complication detail: with chronic kidney disease Chronic kidney disease stage: stage 4 (severe) Qualified Code(s): E11.22 - Type 2 diabetes mellitus with diabetic chronic kidney disease; N18.4 - Chronic kidney disease, stage 4 (severe) (8) HLD (hyperlipidemia) Code(s): E78.5 - HYPERLIPIDEMIA, UNSPECIFIED Qualifiers: Hyperlipidemia type: pure hypercholesterolemia Qualified Code(s): E78.00 - Pure hypercholesterolemia, unspecified; E78.0 - Pure hypercholesterolemia (9) HTN (hypertension) Code(s): I10 - ESSENTIAL (PRIMARY) HYPERTENSION Qualifiers: Hypertension type: renovascular hypertension Qualified Code(s): I15.0 - Renovascular hypertension (10) Hypothyroidism Code(s): E03.9 - HYPOTHYROIDISM, UNSPECIFIED Qualifiers: Hypothyroidism type: unspecified Qualified Code(s): E03.9 - Hypothyroidism , unspecified (11) Paroxysmal atrial fibrillation with rapid ventricular response Code(s): I48.0 - PAROXYSMAL ATRIAL FIBRILLATION Assessment/Plan Lexiscan MPI: 04/03/2018 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 Acute on chronic diastolic/systolic failure and R>L pleural effusions 2. PAF with RVR->SR [id number] on no anticoagulation therapy 3. 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 HTN/HCVD 5. Hyperlipidemia 6. Type 2 DM 7. Hypothyroidism 8. CAD s/p PCI, demand ischemia 9. Hyperuricemia 10. Anemia of CKD 11. Breast ca s/p mastectomy P: 1. HD per renal, resumed Demadex 100 qd with monitor renal function and electrolytes, 2. Will continue to hold ARB given low eGFR, placed on Imdur 30 and hydralazine 25 bid instead with uptitration as tolerated 3. Change ASA 325 qd and sq heparin to Eliquis 2.5 bid, Lipitor 40 qhs, Toprol XL 100 qd 4. DVT and GI prophylaxis 5. F/u with Dr. Ruiz upon d/c [phone] 6. Eventually patient will require right and left heart cardiac catheterization coronary angiography for further evaluation of the above-noted systolic left ventricular dysfunction once euvolemic now that she is dialysis dependent, may be performed as outpatient. 7. PT->SNF
[2018-09-27 10:00] LABS: BASO % 1.2 % (0-2.0); EOS % 4.4 % (0-4.5); HEMATOCRIT 36.1 % (32.4-45.2); HEMOGLOBIN 11.9 GM/dL (10.7-15.3); LYMPH % 18.4 % (8-40); MCH 33.5 pg (25.7-33.7); MEAN CELL VOLUME 101.6 fl (80-96); MEAN PLT VOLUME 10.1 fl (7.5-11.1); MONO % 9.7 % (3.8-10.2); NEUT % 66.3 % (42.8-82.8); PLATELET COUNT 145 K/MM3 (134-434); RBC 3.55 M/mm3 (3.60-5.2); RDW 15.1 % (11.6-15.6); WHITE BLOOD COUNT 6.6 K/mm3 (4.0-10.0)
[2018-09-27] MEDS: APIXABAN 2.5 MG TABLET PO SCH ×2 (10:05→21:37)
--- NOTE | 2018-09-27 10:28 | DS ---
Physical Exam: SUBJECTIVE: Patient seen and examined OBJECTIVE: Vital Signs Period Temp Pulse Resp BP Sys/Dan Pulse Ox Last 24 Hr 97.6 F-98.6 F 59-106 18-20 116-144/58-80 94-96 PHYSICAL EXAM GENERAL: The patient is awake, alert, and fully oriented, in no acute distress. HEAD: Normal with no signs of trauma. EYES: PERRL, extraocular movements intact, sclera anicteric, conjunctiva clear. ENT: Ears normal, nares patent, oropharynx clear without exudates, moist mucous membranes. NECK: Trachea midline, full range of motion, supple. LUNGS: Breath sounds equal, clear to auscultation bilaterally, no wheezes, no crackles, no accessory muscle use. HEART: Regular rate and rhythm, S1, S2 without murmur, rub or gallop. ABDOMEN: Soft, nontender, nondistended, normoactive bowel sounds, no guarding, no rebound, no hepatosplenomegaly, no masses. EXTREMITIES: 2+ pulses, warm, well-perfused, no edema. NEUROLOGICAL: Cranial nerves II through XII grossly intact. Normal speech, gait not observed. PSYCH: Normal mood, normal affect. SKIN: Warm, dry, normal turgor, no rashes or lesions noted. LABS Laboratory Results - last 24 hr 09/25/18 09/25/18 09/27/18 14:00 14:00 06:25 WBC Cancelled Corrected WBC (auto) Cancelled RBC Cancelled Hgb Cancelled Hct Cancelled MCV Cancelled MCH Cancelled MCHC Cancelled RDW Cancelled Plt Count Cancelled MPV Cancelled Absolute Neuts (auto) Cancelled Neutrophils % Cancelled Lymphocytes % Cancelled Monocytes % Cancelled Eosinophils % Cancelled Basophils % Cancelled Nucleated RBC % Cancelled Platelet Estimate Cancelled Platelet Comment Cancelled Sodium Potassium Chloride Carbon Dioxide Anion Gap BUN Creatinine Creat Clearance w eGFR Random Glucose Calcium Total Bilirubin AST ALT Alkaline Phosphatase Total Protein Albumin Hepatitis Be Antigen Negative Hep C Ab Diagnostic <0.1 09/27/18 09/27/18 06:25 09:16 WBC 6.6 Corrected WBC (auto) RBC 3.55 L Hgb 11.9 Hct 36.1 MCV 101.6 H MCH 33.5 MCHC 33.0 RDW 15.1 Plt Count 145 MPV 10.1 Absolute Neuts (auto) 4.3 Neutrophils % 66.3 Lymphocytes % 18.4 Monocytes % 9.7 Eosinophils % 4.4 D Basophils % 1.2 Nucleated RBC % 0 Platelet Estimate Platelet Comment Sodium 139 Potassium 3.7 Chloride 101 Carbon Dioxide 26 Anion Gap 11 BUN 42 H Creatinine 3.2 H Creat Clearance w eGFR 13.70 Random Glucose 77 Calcium 8.7 Total Bilirubin 0.6 AST 20 ALT 25 Alkaline Phosphatase 119 H Total Protein 6.3 L Albumin 3.2 L Hepatitis Be Antigen Hep C Ab Diagnostic HOSPITAL COURSE: The patient is an 88 year old female with ESRD on HD M/W/F , HTN, CAD s/p stent, Breast CA (s/p R mastectomy) who presented with acute onset of weakness and difficulty to breathe. Patient states she was making meatballs and gravy when she suddenly felt like she couldn't catch her breath, lightheaded and had to sit down she also felt that her heart was racing. Symptoms resolved but then started again later. She was brought in to the hosp by EMS. In hospital pt got her HD and also got torsemide 100mg. Pt symptoms resolved. She also complains of pain in her legs for which duplex scan was done and it was negative. ECHO was done which showed severely reduced LV function. Pt also had new onset afib for which she was started to eliquis 2.5mg bid and her aspirin was stopped. Now pt is dc to SNF in stable condition Follow up with your primary doctor. follow up with your residential sales rep Dr riavs. d/c [phone]. Eventually patient will require right and left heart cardiac catheterization coronary [facility] we have started you on eliquis 2.5 mg twice a day. We have stopped your aspirin We have increased your torsemide to 100mg daily. Get your bmp9 blood test) check with in 3-4 days. We have stopped your ARB given low eGFR Fall risk precautions. continue your dialysis on the same days as you were schedule before. DVT prophylaxis check your blood sugar regularly and make a log and present it to your doctor check you blood pressure regularly Date of Admission:09/25/18 Date of Discharge: 09/27/18 Minutes to complete discharge: 45 Discharge Summary Reason For Visit: PLEURAL EFFUSION,CHEST PAIN Current Active Problems AVF (arteriovenous fistula) (Acute) Anemia (Acute) D-dimer, elevated (Acute) ESRD (end stage renal disease) on dialysis (Acute) Paroxysmal atrial fibrillation with rapid ventricular response (Acute) Pleural effusion (Acute) Shortness of breath (Acute) Condition: Stable - Instructions Diet, Activity, Other Instructions: Follow up with your primary doctor. follow up with your residential sales rep Dr rivas. d/c [phone]. Eventually patient will require right and left heart cardiac catheterization coronary angiography for further evaluation may be performed [facility]. we have started you on eliquis 2.5 mg twice a day. We have stopped your aspirin We have ncresed your torsemide to 100mg daily. Get your bmp9 blood test) check with in 3-4 days. We have stopped your ARB given low eGFR Fall risk precautions. continue your dialysis on the same days as you were schedule before. DVT prophylaxis check your blood sugar regularly and make a log and present it to your doctor check you blood pressure regularly Referrals: Tari Ruiz MD [Staff Physician] - 1 Week Walker Padilla MD [Primary Care Provider] - Disposition: SNF FACILITY - Home Medications Comprehensive Discharge Medication List: Ambulatory Orders Allopurinol [Zyloprim -] 100 mg PO BID 03/19/14 Atorvastatin Ca [Lipitor] 40 mg PO HS 03/19/14 Cholecalciferol (Vitamin D3) [Vitamin D3] 1,000 unit PO DAILY 03/19/14 Metoprolol Succinate [Toprol XL -] 100 mg PO HS 03/19/14 Multivitamins [Multivit ([facility] Formulary)] 1 tab PO DAILY 03/19/14 Guar Gum [Benefiber] 1 each PO BID #0 packet 05/21/14 Levothyroxine [Synthroid -] 25 mcg PO DAILY 02/13/18 Isosorbide Mononitrate [Imdur -] 30 mg PO DAILY #30 tab.sr.24h 04/19/18 hydrALAZINE HCL [Apresoline -] 25 mg PO BID #30 tablet 04/19/18 Apixaban [Eliquis -] 2.5 mg PO BID tablet 09/27/18 Torsemide [Demadex -] 100 mg PO DAILY tablet 09/27/18 This patient is new to me today: No Emergency Visit: Yes ED Registration Date: 09/25/18 Care time: The patient presented to the Emergency Department on the above date and was hospitalized for further evaluation of their emergent condition. Critical Care patient: No - Discharge Referral Referred to [facility] No
--- NOTE | 2018-09-27 10:37 | PN ---
Teaching Attending Note Name of Resident: Benjie Trinidad ATTENDING PHYSICIAN STATEMENT I saw and evaluated the patient. I reviewed the resident's note and discussed the case with the resident. I agree with the resident's findings and plan as documented. SUBJECTIVE: Ms Lua says she is feeling well today. Denies cp, sob, n/v. OBJECTIVE: Last Vital Signs Temp Pulse Resp BP Pulse Ox 36.4 C 59 L 18 144/62 94 L 09/27/18 05:00 09/27/18 05:00 09/27/18 05:00 09/27/18 05:00 09/27/18 05:00 Gen: nad Pulm: ctab w/o w/r/r CV: rrr w/o m/r/g Abd: +bs, s/nt/nd Ext: no c/c/e CBC, BMP 09/27/18 09:16 09/27/18 06:25 ASSESSMENT AND PLAN: -case d/w nephrology and cardiology -continue HD -add eliquis -adjust metoprolol -medically stable for discharge, awaiting approval and placement Problem List - Problems (1) Pleural effusion Code(s): J90 - PLEURAL EFFUSION, NOT ELSEWHERE CLASSIFIED (2) ESRD (end stage renal disease) on dialysis Code(s): N18.6 - END STAGE RENAL DISEASE; Z99.2 - DEPENDENCE ON RENAL DIALYSIS (3) Acute on chronic diastolic heart failure Code(s): I50.33 - ACUTE ON CHRONIC DIASTOLIC (CONGESTIVE) HEART FAILURE (4) Diabetes mellitus Code(s): E11.9 - TYPE 2 DIABETES MELLITUS WITHOUT COMPLICATIONS Qualifiers: Diabetes mellitus type: type 2 Diabetes mellitus halfway insulin use: without halfway use Diabetes mellitus complication status: with kidney complications Diabetes mellitus complication detail: with chronic kidney disease Chronic kidney disease stage: stage 4 (severe) Qualified Code(s): E11.22 - Type 2 diabetes mellitus with diabetic chronic kidney disease; N18.4 - Chronic kidney disease, stage 4 (severe) (5) HLD (hyperlipidemia) Code(s): E78.5 - HYPERLIPIDEMIA, UNSPECIFIED Qualifiers: Hyperlipidemia type: pure hypercholesterolemia Qualified Code(s): E78.00 - Pure hypercholesterolemia, unspecified; E78.0 - Pure hypercholesterolemia (6) HTN (hypertension) Code(s): I10 - ESSENTIAL (PRIMARY) HYPERTENSION Qualifiers: Hypertension type: renovascular hypertension Qualified Code(s): I15.0 - Renovascular hypertension (7) D-dimer, elevated Code(s): R79.89 - OTHER SPECIFIED ABNORMAL FINDINGS OF BLOOD CHEMISTRY
--- NOTE | 2018-09-27 11:55 | PN ---
Progress Note, Physician Chief Complaint: The patient seen in telemetry. Feels tired. Weak. Denies any chest pain, No shortness of breath. 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 - Current Medication List Current Medications: Active Medications Allopurinol (Zyloprim -) 100 mg PO BID [facility] Last Admin: 09/27/18 09:09 Dose: Not Given Apixaban (Eliquis -) 2.5 mg PO BID [facility] Last Admin: 09/27/18 10:05 Dose: Not Given Atorvastatin Calcium (Lipitor -) 40 mg PO HS [facility] Last Admin: 09/26/18 21:27 Dose: 40 mg Cholecalciferol (Vitamin D3 -) 1,000 unit PO DAILY [facility] Last Admin: 09/27/18 09:08 Dose: Not Given Cyclobenzaprine HCl (Flexeril -) 5 mg PO ONCE ONE Stop: 09/25/18 18:10 Hydralazine HCl (Apresoline -) 25 mg PO BID [facility] Last Admin: 09/27/18 09:08 Dose: Not Given Isosorbide Mononitrate (Imdur -) 30 mg PO DAILY [facility] Last Admin: 09/27/18 09:08 Dose: Not Given Levothyroxine Sodium (Synthroid -) 25 mcg PO 0700 [facility] Last Admin: 09/27/18 09:07 Dose: Not Given Metoprolol Succinate (Toprol Xl -) 100 mg PO DAILY [facility] Last Admin: 09/27/18 09:08 Dose: Not Given Multivitamins/Minerals/Vitamin C (Tab-A-Vit -) 1 tab PO DAILY [facility] Last Admin: 09/27/18 09:08 Dose: Not Given Torsemide (Demadex -) 100 mg PO DAILY [facility] Last Admin: 09/27/18 09:08 Dose: Not Given - Objective Vital Signs: Vital Signs Temperature 97.6 F 09/27/18 05:00 Pulse Rate 59 L 09/27/18 05:00 Respiratory Rate 18 09/27/18 05:00 Blood Pressure 144/62 09/27/18 05:00 O2 Sat by Pulse Oximetry (%) 94 L 09/27/18 05:00 Constitutional: Yes: Anxious Eyes: Yes: Conjunctiva Clear HENT: Yes: Normocephalic Neck: Yes: Trachea Midline Cardiovascular: Yes: Regular Rate and Rhythm, S1, S2 Respiratory: Yes: Regular, CTA Bilaterally Gastrointestinal: Yes: Normal Bowel Sounds, Soft Musculoskeletal: Yes: Back Pain, Joint Stiffness Neurological: Yes: Alert, Oriented Labs: CBC, BMP 09/27/18 09:16 09/27/18 06:25 Problem List - Problems (1) ESRD (end stage renal disease) on dialysis Code(s): N18.6 - END STAGE RENAL DISEASE; Z99.2 - DEPENDENCE ON RENAL DIALYSIS (2) AVF (arteriovenous fistula) Code(s): I77.0 - ARTERIOVENOUS FISTULA, ACQUIRED (3) Anemia Code(s): D64.9 - ANEMIA, UNSPECIFIED Qualifiers: Anemia type: due to chronic kidney disease Chronic kidney disease stage: on chronic dialysis Qualified Code(s): N18.6 - End stage renal disease; D63.1 - Anemia in chronic kidney disease; Z99.2 - Dependence on renal dialysis (4) Pleural effusion Code(s): J90 - PLEURAL EFFUSION, NOT ELSEWHERE CLASSIFIED (5) CHF (congestive heart failure) Code(s): I50.9 - HEART FAILURE, UNSPECIFIED Qualifiers: Heart failure type: combined systolic and diastolic Heart failure chronicity: chronic Qualified Code(s): I50.42 - Chronic combined systolic ( congestive) and diastolic (congestive) heart failure Assessment/Plan The patient is an 88 year old female with 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 Patient states she was making meatballs and gravy when she suddenly felt like she couldn't catch her breath, lightheaded and had to sit down she also felt that her heart was racing. Symptoms resolved but then started again later. She was brought in to the hosp by EMS. Acute chest discomfort, with shortness of breath. Possible CHF. Acute myocardial ischemia . Cardiac w/u in progress. ESRD, on Hemodialysis. Hemodialysis for later today. Demadex restarted. For SNF placement for rehab. Thank you. Will follow with you. Maria A Araujo MD
--- NOTE | 2018-09-27 14:02 | PN ---
Progress Note (short form) - Note Progress Note: Surgery I spoke with Dr Felix regarding PC removal which he is requesting be done in the OR. Dr Caicedo confirmed he is not available to do this today but would like to see patient in his office next week. Dr Felix aware of the situation and agrees that patient can be discharged with PC and have outpatient follow up.
--- NOTE | 2018-09-27 16:16 | PN ---
Progress Note (short form) - Note Progress Note: PULMONARY AWAKE/ALERT UNDERGOING HD VSS Constitutional: Yes: Well Nourished, Calm Eyes: Yes: WNL HENT: Yes: WNL Neck: Yes: WNL Cardiovascular: Yes: Regular Rate and Rhythm, S1, S2 Respiratory: Yes: Diminished Gastrointestinal: Yes: Normal Bowel Sounds, Soft Extremities: Yes: WNL Edema: No Labs: NOTED IMP DYSPNEA IMPROVED ACUTE ON CHRONIC CHF IMPROVED BILATERAL PLEURAL EFFUSIONS LIKELY SECONDARY TO CHF/VOLUME OVERLOAD + TROPONIN ASHD S/P STENT H/O BREST CA S/P PARTIAL MASTECTOMY ESRD ON HD HTN DM ANEMIA PLAN HD PER RENAL O2 F/U CHESTS X-RAYS STRICT I+OS TREND TROPONIN MONITOR FABIOLA OWEN MD
[2018-09-27] MEDS: ATORVASTATIN CA 40 MG TABLET (FP) PO SCH (21:37)
[2018-09-27] MEDS ORDERED: CYCLOBENZAPRINE HCL 10 MG TABLET (FP) PO ONE (23:02)
[2018-09-28] MEDS: LEVOTHYROXINE NA 25 MCG TABLET (FP) PO SCH (06:23)
[2018-09-28 09:07] LABS: ANION GAP 9 MMOL/L (8-16); BLOOD UREA NITROGEN 27 mg/dL (7-18); CALCIUM 8.9 mg/dL (8.5-10.1); CHLORIDE 102 mmol/L (98-107); CO2 31 mmol/L (21-32); CREATININE 2.6 mg/dL (0.55-1.3); GLUCOSE,RANDOM 74 mg/dL (74-106); POTASSIUM 3.5 mmol/L (3.5-5.1); SODIUM 142 mmol/L (136-145)
[2018-09-28] MEDS ORDERED: PT OWN MED DRAWER 7, Y5N ONE ×3 (09:20→21:24)
[2018-09-28] MEDS: CHOLECALCIFEROL (VITAMIN D3) 1,000 UNIT TABLET (FP) PO SCH (09:42)
[2018-09-28] MEDS: ISOSORBIDE MONONITRATE 30 MG TAB.SR.24H (FP) PO SCH (09:42)
[2018-09-28] MEDS: hydrALAZINE HCL 25 MG TABLET (FP) PO SCH ×2 (09:42→22:15)
[2018-09-28] MEDS: APIXABAN 2.5 MG TABLET PO SCH ×2 (09:42→22:16)
[2018-09-28] MEDS: ALLOPURINOL 100 MG TABLET (FP) PO SCH ×2 (09:43→22:16)
[2018-09-28] MEDS: MULTIVITAMINS (DAILY MVI) TABLET (FP) PO SCH (09:43)
[2018-09-28] MEDS: TORSEMIDE 100 MG TABLET PO SCH (09:44)
--- NOTE | 2018-09-28 12:22 | PN ---
Progress Note, Physician Chief Complaint: Events noted Complains of headache History of Present Illness: Patient was seen and examined. Awake and alert. Chart was reviewed Denies chest pain, SOB or palpitations - Current Medication List Current Medications: Active Medications Allopurinol (Zyloprim -) 100 mg PO BID [facility] Last Admin: 09/28/18 09:43 Dose: 100 mg Apixaban (Eliquis -) 2.5 mg PO BID [facility] Last Admin: 09/28/18 09:42 Dose: 2.5 mg Atorvastatin Calcium (Lipitor -) 40 mg PO [facility] Cholecalciferol (Vitamin D3 -) 1,000 unit PO DAILY [facility] Last Admin: 09/28/18 09:42 Dose: 1,000 unit Cyclobenzaprine HCl (Flexeril -) 5 mg PO ONCE ONE Stop: 09/27/18 23:03 Hydralazine HCl (Apresoline -) 25 mg PO BID [facility] Last Admin: 09/28/18 09:42 Dose: 25 mg Isosorbide Mononitrate (Imdur -) 30 mg PO DAILY [facility] Last Admin: 09/28/18 09:42 Dose: 30 mg Levothyroxine Sodium (Synthroid -) 25 mcg PO 0700 [facility] Last Admin: 09/28/18 06:23 Dose: 25 mcg Metoprolol Succinate (Toprol Xl -) 100 mg PO DAILY [facility] Last Admin: 09/28/18 09:43 Dose: 100 mg Multivitamins/Minerals/Vitamin C (Tab-A-Vit -) 1 tab PO DAILY [facility] Last Admin: 09/28/18 09:43 Dose: 1 tab Torsemide (Demadex -) 100 mg PO DAILY [facility] Last Admin: 09/28/18 09:44 Dose: 100 mg - Objective Vital Signs: Vital Signs Temperature 98.1 F 09/28/18 10:00 Pulse Rate 67 09/28/18 10:00 Respiratory Rate 18 09/28/18 10:00 Blood Pressure 134/52 L 09/28/18 10:00 O2 Sat by Pulse Oximetry (%) 93 L 09/28/18 10:00 HENT: Yes: Atraumatic Neck: Yes: Supple Cardiovascular: Yes: Regular Rate and Rhythm, S1, S2 Respiratory: Yes: CTA Bilaterally Gastrointestinal: Yes: Normal Bowel Sounds, Soft. No: Tenderness Edema: No Labs: CBC, BMP 09/27/18 09:16 09/28/18 07:00 Problem List - Problems (1) Anemia Code(s): D64.9 - ANEMIA, UNSPECIFIED Qualifiers: Qualified Code(s): N18.6 - End stage renal disease; D63.1 - Anemia in chronic kidney disease; Z99.2 - Dependence on renal dialysis (2) ESRD (end stage renal disease) on dialysis Code(s): N18.6 - END STAGE RENAL DISEASE; Z99.2 - DEPENDENCE ON RENAL DIALYSIS (3) Paroxysmal atrial fibrillation with rapid ventricular response Code(s): I48.0 - PAROXYSMAL ATRIAL FIBRILLATION (4) Acute on chronic diastolic heart failure Code(s): I50.33 - ACUTE ON CHRONIC DIASTOLIC (CONGESTIVE) HEART FAILURE (5) Acute on chronic systolic and diastolic heart failure, NYHA class 3 Code(s): I50.43 - ACUTE ON CHRONIC COMBINED SYSTOLIC AND DIASTOLIC HRT FAIL (6) Aortic stenosis, moderate Code(s): I35.0 - NONRHEUMATIC AORTIC (VALVE) STENOSIS (7) CHF (congestive heart failure) Code(s): I50.9 - HEART FAILURE, UNSPECIFIED Qualifiers: Qualified Code(s): I50.42 - Chronic combined systolic (congestive) and diastolic (congestive) heart failure (8) Demand ischemia Code(s): I24.8 - OTHER FORMS OF ACUTE ISCHEMIC HEART DISEASE (9) Diabetes mellitus Code(s): E11.9 - TYPE 2 DIABETES MELLITUS WITHOUT COMPLICATIONS Qualifiers: Qualified Code(s): E11.22 - Type 2 diabetes mellitus with diabetic chronic kidney disease; N18.4 - Chronic kidney disease, stage 4 (severe) (10) HLD (hyperlipidemia) Code(s): E78.5 - HYPERLIPIDEMIA, UNSPECIFIED Qualifiers: Qualified Code(s): E78.00 - Pure hypercholesterolemia, unspecified; E78.0 - Pure hypercholesterolemia (11) HTN (hypertension) Code(s): I10 - ESSENTIAL (PRIMARY) HYPERTENSION Qualifiers: Qualified Code(s): 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 Acute on chronic diastolic/systolic failure and R>L pleural effusions 2. PAF with RVR [id number] on no anticoagulation therapy - in sinus rhythm 3. 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 HTN/HCVD 5. Hyperlipidemia 6. Type 2 DM 7. Hypothyroidism 8. CAD s/p PCI, demand ischemia 9. Hyperuricemia 10. Anemia of CKD 11. Breast ca s/p mastectomy PLAN: 1. HD per renal and continue Demadex 100 mg QD with monitoring renal function and electrolytes, 2. Continue to hold ARB given low GFR, Imdur 30 mg QD and Hydralazine 25 mg BID 3. Eliquis 2.5 mg BID, Lipitor 40 mg QHS, Toprol XL 100 qd 4. DVT and GI prophylaxis 5. Eventually patient will require right and left heart cardiac catheterization/ coronary angiography as outpatient for further evaluation of the above-noted systolic left ventricular dysfunction once euvolemic now that she is dialysis dependent 6. Await SNF Cabrera Brandon MD
--- NOTE | 2018-09-28 13:10 | PN ---
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 Patient states she was making meatballs and gravy when she suddenly felt like she couldn't catch her breath, lightheaded and had to sit down she also felt that her heart was racing. Symptoms resolved but then started again later. She was brought in to the hosp by EMS. Current Medications Allopurinol (Zyloprim -) 100 mg PO BID [facility] Last Admin: 09/28/18 09:43 Dose: 100 mg Apixaban (Eliquis -) 2.5 mg PO BID [facility] Last Admin: 09/28/18 09:42 Dose: 2.5 mg Atorvastatin Calcium (Lipitor -) 40 mg PO [facility] Cholecalciferol (Vitamin D3 -) 1,000 unit PO DAILY [facility] Last Admin: 09/28/18 09:42 Dose: 1,000 unit Cyclobenzaprine HCl (Flexeril -) 5 mg PO ONCE ONE Stop: 09/27/18 23:03 Hydralazine HCl (Apresoline -) 25 mg PO BID [facility] Last Admin: 09/28/18 09:42 Dose: 25 mg Isosorbide Mononitrate (Imdur -) 30 mg PO DAILY [facility] Last Admin: 09/28/18 09:42 Dose: 30 mg Levothyroxine Sodium (Synthroid -) 25 mcg PO 0700 [facility] Last Admin: 09/28/18 06:23 Dose: 25 mcg Metoprolol Succinate (Toprol Xl -) 100 mg PO DAILY [facility] Last Admin: 09/28/18 09:43 Dose: 100 mg Multivitamins/Minerals/Vitamin C (Tab-A-Vit -) 1 tab PO DAILY [facility] Last Admin: 09/28/18 09:43 Dose: 1 tab Torsemide (Demadex -) 100 mg PO DAILY [facility] Last Admin: 09/28/18 09:44 Dose: 100 mg Last Vital Signs Temp Pulse Resp BP Pulse Ox 98.1 F 67 18 134/52 L 93 L 09/28/18 10:00 09/28/18 10:00 09/28/18 10:00 09/28/18 10:00 02/23/19 10:00 CBC, BMP 09/27/18 09:16 09/28/18 07:00 Acute chest discomfort, with shortness of breath. Possible CHF. Acute myocardial ischemia . Cardiac w/u in progress. ESRD, on Hemodialysis. Hemodialysis for later today. Demadex restarted. For SNF placement for rehab.
[2018-09-28] MEDS: ACETAMINOPHEN 325 MG TABLET (FP) PO PRN (13:40)
[2018-09-28] MEDS: FLUTICASONE PROP 0.05% 16 GM NASAL SPRAY NS SCH (13:54)
--- NOTE | 2018-09-28 15:06 | PN ---
Progress Note (short form) - Note Progress Note: PULMONARY Awake/alert complaining of head pressure spo2 93% r/a VSS Constitutional: Yes: Well Nourished, Calm Eyes: Yes: WNL HENT: Yes: WNL Neck: Yes: WNL Cardiovascular: Yes: Regular Rate and Rhythm, S1, S2 Respiratory: Yes: Diminished Gastrointestinal: Yes: Normal Bowel Sounds, Soft Extremities: Yes: WNL Edema: No Labs: NOTED IMP DYSPNEA IMPROVED ACUTE ON CHRONIC CHF IMPROVED BILATERAL PLEURAL EFFUSIONS LIKELY SECONDARY TO CHF/VOLUME OVERLOAD + TROPONIN ASHD S/P STENT H/O BREST CA S/P PARTIAL MASTECTOMY ESRD ON HD HTN DM ANEMIA PLAN HD PER RENAL O2 F/U CHESTS X-RAYS STRICT I+OS TREND TROPONIN MONITOR FABIOLA OWEN MD
--- NOTE | 2018-09-28 16:25 | PN ---
Progress Note, Physician Chief Complaint: Ms Lua complains of sinus congestion and frontal headache today. Denies cp, sob, n/v. - Current Medication List Current Medications: Active Medications Acetaminophen (Tylenol -) 650 mg PO Q4H PRN PRN Reason: HEADACHE Last Admin: 09/28/18 13:40 Dose: 650 mg Allopurinol (Zyloprim -) 100 mg PO BID [facility] Last Admin: 09/28/18 09:43 Dose: 100 mg Apixaban (Eliquis -) 2.5 mg PO BID [facility] Last Admin: 09/28/18 09:42 Dose: 2.5 mg Atorvastatin Calcium (Lipitor -) 40 mg PO [facility] Cholecalciferol (Vitamin D3 -) 1,000 unit PO DAILY [facility] Last Admin: 09/28/18 09:42 Dose: 1,000 unit Cyclobenzaprine HCl (Flexeril -) 5 mg PO ONCE ONE Stop: 09/27/18 23:03 Fluticasone Propionate (Flonase -) 2 spray NS DAILY [facility] Last Admin: 09/28/18 13:54 Dose: 2 spr Hydralazine HCl (Apresoline -) 25 mg PO BID [facility] Last Admin: 09/28/18 09:42 Dose: 25 mg Isosorbide Mononitrate (Imdur -) 30 mg PO DAILY [facility] Last Admin: 09/28/18 09:42 Dose: 30 mg Levothyroxine Sodium (Synthroid -) 25 mcg PO 0700 [facility] Last Admin: 09/28/18 06:23 Dose: 25 mcg Metoprolol Succinate (Toprol Xl -) 100 mg PO DAILY [facility] Last Admin: 09/28/18 09:43 Dose: 100 mg Multivitamins/Minerals/Vitamin C (Tab-A-Vit -) 1 tab PO DAILY [facility] Last Admin: 09/28/18 09:43 Dose: 1 tab Torsemide (Demadex -) 100 mg PO DAILY [facility] Last Admin: 09/28/18 09:44 Dose: 100 mg - Objective Vital Signs: Vital Signs Temperature 36.4 C L 09/28/18 14:00 Pulse Rate 67 09/28/18 14:00 Respiratory Rate 20 09/28/18 14:00 Blood Pressure 130/62 09/28/18 14:00 O2 Sat by Pulse Oximetry (%) 93 L 09/28/18 10:00 Constitutional: Yes: Well Nourished, No Distress, Calm Cardiovascular: Yes: Regular Rate and Rhythm. No: Gallop, Murmur, Rub Respiratory: Yes: Regular, CTA Bilaterally. No: Rales, Rhonchi, Wheezes Gastrointestinal: Yes: Normal Bowel Sounds, Soft. No: Distention, Tenderness Extremities: Yes: WNL Edema: No Labs: CBC, BMP 09/27/18 09:16 09/28/18 07:00 Problem List - Problems (1) Pleural effusion Code(s): J90 - PLEURAL EFFUSION, NOT ELSEWHERE CLASSIFIED (2) ESRD (end stage renal disease) on dialysis Code(s): N18.6 - END STAGE RENAL DISEASE; Z99.2 - DEPENDENCE ON RENAL DIALYSIS (3) Acute on chronic diastolic heart failure Code(s): I50.33 - ACUTE ON CHRONIC DIASTOLIC (CONGESTIVE) HEART FAILURE (4) Diabetes mellitus Code(s): E11.9 - TYPE 2 DIABETES MELLITUS WITHOUT COMPLICATIONS Qualifiers: Diabetes mellitus type: type 2 Diabetes mellitus mcc insulin use: without long term care social worker use Diabetes mellitus complication status: with kidney complications Diabetes mellitus complication detail: with chronic kidney disease Chronic kidney disease stage: stage 4 (severe) Qualified Code(s): E11.22 - Type 2 diabetes mellitus with diabetic chronic kidney disease; N18.4 - Chronic kidney disease, stage 4 (severe) (5) HLD (hyperlipidemia) Code(s): E78.5 - HYPERLIPIDEMIA, UNSPECIFIED Qualifiers: Hyperlipidemia type: pure hypercholesterolemia Qualified Code(s): E78.00 - Pure hypercholesterolemia, unspecified; E78.0 - Pure hypercholesterolemia (6) HTN (hypertension) Code(s): I10 - ESSENTIAL (PRIMARY) HYPERTENSION Qualifiers: Hypertension type: renovascular hypertension Qualified Code(s): I15.0 - Renovascular hypertension (7) D-dimer, elevated Code(s): R79.89 - OTHER SPECIFIED ABNORMAL FINDINGS OF BLOOD CHEMISTRY Assessment/Plan -flonase for sinus congestion -tylenol for headache -continue current management -awaiting placement at SNF
[2018-09-28] MEDS: ATORVASTATIN CA 40 MG TABLET (FP) PO SCH (22:16)
[2018-09-29] MEDS: LEVOTHYROXINE NA 25 MCG TABLET (FP) PO SCH (06:16)
[2018-09-29 08:19] LABS: BASO % 1.3 % (0-2.0); EOS % 4.8 % (0-4.5); HEMATOCRIT 37.1 % (32.4-45.2); HEMOGLOBIN 12.3 GM/dL (10.7-15.3); LYMPH % 26.5 % (8-40); MCH 33.6 pg (25.7-33.7); MCHC 33.1 g/dl (32.0-36.0); MEAN CELL VOLUME 101.7 fl (80-96); MEAN PLT VOLUME 10.3 fl (7.5-11.1); MONO % 10.8 % (3.8-10.2); NEUT % 56.6 % (42.8-82.8); PLATELET COUNT 156 K/MM3 (134-434); RBC 3.64 M/mm3 (3.60-5.2); RDW 15.3 % (11.6-15.6); WHITE BLOOD COUNT 5.4 K/mm3 (4.0-10.0)
[2018-09-29 08:49] LABS: ANION GAP 8 MMOL/L (8-16); BLOOD UREA NITROGEN 45 mg/dL (7-18); CALCIUM 8.7 mg/dL (8.5-10.1); CHLORIDE 102 mmol/L (98-107); CO2 30 mmol/L (21-32); CREATININE 3.6 mg/dL (0.55-1.3); GLUCOSE,RANDOM 76 mg/dL (74-106); MAGNESIUM 1.8 mg/dL (1.8-2.4); PHOSPHOROUS 3.6 mg/dL (2.5-4.9); POTASSIUM 3.4 mmol/L (3.5-5.1); SODIUM 140 mmol/L (136-145)
[2018-09-29] MEDS ORDERED: PT OWN MED DRAWER 7, Y5N ONE (09:41)
[2018-09-29] MEDS: ACETAMINOPHEN 325 MG TABLET (FP) PO PRN (09:46)
[2018-09-29] MEDS: CHOLECALCIFEROL (VITAMIN D3) 1,000 UNIT TABLET (FP) PO SCH (09:47)
[2018-09-29] MEDS: ALLOPURINOL 100 MG TABLET (FP) PO SCH ×2 (09:47→21:57)
[2018-09-29] MEDS: ISOSORBIDE MONONITRATE 30 MG TAB.SR.24H (FP) PO SCH (09:47)
[2018-09-29] MEDS: APIXABAN 2.5 MG TABLET PO SCH ×2 (09:47→21:57)
[2018-09-29] MEDS: MULTIVITAMINS (DAILY MVI) TABLET (FP) PO SCH (09:47)
[2018-09-29] MEDS: hydrALAZINE HCL 25 MG TABLET (FP) PO SCH ×2 (09:47→21:57)
[2018-09-29] MEDS: FLUTICASONE PROP 0.05% 16 GM NASAL SPRAY NS SCH (09:48)
[2018-09-29] MEDS: TORSEMIDE 100 MG TABLET PO SCH (09:49)
[2018-09-29] MEDS ORDERED: POTASSIUM CHLORIDE TABS 10 MEQ TABLET.ER (FP) PO ONE (10:42)
--- NOTE | 2018-09-29 10:43 | PN ---
Progress Note, Physician Chief Complaint: Ms Lua says the headache and sinus congestion is gone. No cp, sob, n/v. - Current Medication List Current Medications: Active Medications Acetaminophen (Tylenol -) 650 mg PO Q4H PRN PRN Reason: HEADACHE Last Admin: 09/29/18 09:46 Dose: 650 mg Allopurinol (Zyloprim -) 100 mg PO BID [facility] Last Admin: 09/29/18 09:47 Dose: 100 mg Apixaban (Eliquis -) 2.5 mg PO BID [facility] Last Admin: 09/29/18 09:47 Dose: 2.5 mg Atorvastatin Calcium (Lipitor -) 40 mg PO HS [facility] Last Admin: 09/28/18 22:16 Dose: 40 mg Cholecalciferol (Vitamin D3 -) 1,000 unit PO DAILY [facility] Last Admin: 09/29/18 09:47 Dose: 1,000 unit Cyclobenzaprine HCl (Flexeril -) 5 mg PO ONCE ONE Stop: 09/27/18 23:03 Fluticasone Propionate (Flonase -) 2 spray NS DAILY [facility] Last Admin: 09/29/18 09:48 Dose: 2 spr Hydralazine HCl (Apresoline -) 25 mg PO BID [facility] Last Admin: 09/29/18 09:47 Dose: 25 mg Isosorbide Mononitrate (Imdur -) 30 mg PO DAILY [facility] Last Admin: 09/29/18 09:47 Dose: 30 mg Levothyroxine Sodium (Synthroid -) 25 mcg PO 0700 [facility] Last Admin: 09/29/18 06:16 Dose: 25 mcg Metoprolol Succinate (Toprol Xl -) 100 mg PO DAILY [facility] Last Admin: 09/29/18 09:47 Dose: 100 mg Multivitamins/Minerals/Vitamin C (Tab-A-Vit -) 1 tab PO DAILY [facility] Last Admin: 09/29/18 09:47 Dose: 1 tab Potassium Chloride (K-Dur -) 10 meq PO ONCE ONE Stop: 09/29/18 10:43 Torsemide (Demadex -) 100 mg PO DAILY [facility] Last Admin: 09/29/18 09:49 Dose: 100 mg - Objective Vital Signs: Vital Signs Temperature 36.8 C 09/29/18 09:00 Pulse Rate 65 09/29/18 09:00 Respiratory Rate 20 09/29/18 09:00 Blood Pressure 138/71 09/29/18 09:00 O2 Sat by Pulse Oximetry (%) 94 L 09/29/18 02:00 Constitutional: Yes: Well Nourished, No Distress, Calm Cardiovascular: Yes: Regular Rate and Rhythm. No: Gallop, Murmur, Rub Respiratory: Yes: Regular, CTA Bilaterally. No: Rales, Rhonchi, Wheezes Gastrointestinal: Yes: Normal Bowel Sounds, Soft. No: Distention, Tenderness Extremities: Yes: WNL Edema: No Labs: CBC, BMP 09/29/18 07:00 09/29/18 07:00 Problem List - Problems (1) Pleural effusion Code(s): J90 - PLEURAL EFFUSION, NOT ELSEWHERE CLASSIFIED (2) ESRD (end stage renal disease) on dialysis Code(s): N18.6 - END STAGE RENAL DISEASE; Z99.2 - DEPENDENCE ON RENAL DIALYSIS (3) Acute on chronic diastolic heart failure Code(s): I50.33 - ACUTE ON CHRONIC DIASTOLIC (CONGESTIVE) HEART FAILURE (4) Diabetes mellitus Code(s): E11.9 - TYPE 2 DIABETES MELLITUS WITHOUT COMPLICATIONS Qualifiers: Diabetes mellitus type: type 2 Diabetes mellitus nursing home insulin use: without nursing home use Diabetes mellitus complication status: with kidney complications Diabetes mellitus complication detail: with chronic kidney disease Chronic kidney disease stage: stage 4 (severe) Qualified Code(s): E11.22 - Type 2 diabetes mellitus with diabetic chronic kidney disease; N18.4 - Chronic kidney disease, stage 4 (severe) (5) HLD (hyperlipidemia) Code(s): E78.5 - HYPERLIPIDEMIA, UNSPECIFIED Qualifiers: Hyperlipidemia type: pure hypercholesterolemia Qualified Code(s): E78.00 - Pure hypercholesterolemia, unspecified; E78.0 - Pure hypercholesterolemia (6) HTN (hypertension) Code(s): I10 - ESSENTIAL (PRIMARY) HYPERTENSION Qualifiers: Hypertension type: renovascular hypertension Qualified Code(s): I15.0 - Renovascular hypertension (7) D-dimer, elevated Code(s): R79.89 - OTHER SPECIFIED ABNORMAL FINDINGS OF BLOOD CHEMISTRY (8) Hypokalemia Code(s): E87.6 - HYPOKALEMIA Assessment/Plan -continue flonase currently -headache resolved -replace potassium today -HD per nephrology -awaiting insurance approval -continue current management
--- NOTE | 2018-09-29 12:43 | PN ---
Progress Note (short form) - Note Progress Note: PULMONARY Awake/alert spo2 94% r/a VSS Constitutional: Yes: Well Nourished, Calm Eyes: Yes: WNL HENT: Yes: WNL Neck: Yes: WNL Cardiovascular: Yes: Regular Rate and Rhythm, S1, S2 Respiratory: Yes: Diminished Gastrointestinal: Yes: Normal Bowel Sounds, Soft Extremities: Yes: WNL Edema: No Labs: NOTED IMP DYSPNEA IMPROVED ACUTE ON CHRONIC CHF IMPROVED BILATERAL PLEURAL EFFUSIONS LIKELY SECONDARY TO CHF/VOLUME OVERLOAD + TROPONIN ASHD S/P STENT H/O BREST CA S/P PARTIAL MASTECTOMY ESRD ON HD HTN DM ANEMIA PLAN HD PER RENAL O2 F/U CHESTS X-RAYS STRICT I+OS MONITOR FABIOLA OWEN MD
[2018-09-29] MEDS: ATORVASTATIN CA 40 MG TABLET (FP) PO SCH (21:57)
--- NOTE | 2018-09-29 22:55 | PN ---
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 Patient states she was making meatballs and gravy when she suddenly felt like she couldn't catch her breath, lightheaded and had to sit down she also felt that her heart was racing. Symptoms resolved but then started again later. She was brought in to the hosp by EMS. Current Medications Acetaminophen (Tylenol -) 650 mg PO Q4H PRN PRN Reason: HEADACHE Last Admin: 09/29/18 09:46 Dose: 650 mg Allopurinol (Zyloprim -) 100 mg PO BID [facility] Last Admin: 09/29/18 21:57 Dose: 100 mg Apixaban (Eliquis -) 2.5 mg PO BID [facility] Last Admin: 09/29/18 21:57 Dose: 2.5 mg Atorvastatin Calcium (Lipitor -) 40 mg PO HS [facility] Last Admin: 09/29/18 21:57 Dose: 40 mg Cholecalciferol (Vitamin D3 -) 1,000 unit PO DAILY [facility] Last Admin: 09/29/18 09:47 Dose: 1,000 unit Cyclobenzaprine HCl (Flexeril -) 5 mg PO ONCE ONE Stop: 09/27/18 23:03 Fluticasone Propionate (Flonase -) 2 spray NS DAILY [facility] Last Admin: 09/29/18 09:48 Dose: 2 spr Hydralazine HCl (Apresoline -) 25 mg PO BID [facility] Last Admin: 09/29/18 21:57 Dose: 25 mg Isosorbide Mononitrate (Imdur -) 30 mg PO DAILY [facility] Last Admin: 09/29/18 09:47 Dose: 30 mg Levothyroxine Sodium (Synthroid -) 25 mcg PO 0700 [facility] Last Admin: 09/29/18 06:16 Dose: 25 mcg Metoprolol Succinate (Toprol Xl -) 100 mg PO DAILY [facility] Last Admin: 09/29/18 09:47 Dose: 100 mg Multivitamins/Minerals/Vitamin C (Tab-A-Vit -) 1 tab PO DAILY [facility] Last Admin: 09/29/18 09:47 Dose: 1 tab Torsemide (Demadex -) 100 mg PO DAILY [facility] Last Admin: 09/29/18 09:49 Dose: 100 mg Last Vital Signs Temp Pulse Resp BP Pulse Ox 98.1 F 61 20 134/55 L 94 L 09/29/18 18:00 09/29/18 18:00 09/29/18 18:00 09/29/18 18:00 09/29/18 02:00 lungs clear heart reg abd soft non tender ext no edema CBC, BMP 09/29/18 07:00 09/29/18 07:00 CBC, BMP 09/27/18 09:16 09/28/18 07:00 Acute chest discomfort, with shortness of breath. Possible CHF. Acute myocardial ischemia . Cardiac w/u in progress. ESRD, on Hemodialysis. Hemodialysis for later today. Demadex restarted. For SNF placement for rehab.
[2018-09-30] MEDS: LEVOTHYROXINE NA 25 MCG TABLET (FP) PO SCH (06:24)
[2018-09-30 07:33] LABS: BASO % 1.8 % (0-2.0); EOS % 5.2 % (0-4.5); HEMATOCRIT 36.7 % (32.4-45.2); HEMOGLOBIN 12.2 GM/dL (10.7-15.3); LYMPH % 26.6 % (8-40); MCH 33.8 pg (25.7-33.7); MCHC 33.1 g/dl (32.0-36.0); MEAN CELL VOLUME 101.9 fl (80-96); MEAN PLT VOLUME 9.9 fl (7.5-11.1); MONO % 10.4 % (3.8-10.2); PLATELET COUNT 150 K/MM3 (134-434); RDW 15.3 % (11.6-15.6); WHITE BLOOD COUNT 5.1 K/mm3 (4.0-10.0)
[2018-09-30 07:47] LABS: ANION GAP 8 MMOL/L (8-16); BLOOD UREA NITROGEN 57 mg/dL (7-18); CALCIUM 8.9 mg/dL (8.5-10.1); CHLORIDE 102 mmol/L (98-107); CO2 31 mmol/L (21-32); CREATININE 3.9 mg/dL (0.55-1.3); GLUCOSE,RANDOM 84 mg/dL (74-106); PHOSPHOROUS 4.2 mg/dL (2.5-4.9); POTASSIUM 3.6 mmol/L (3.5-5.1); SODIUM 141 mmol/L (136-145)
[2018-09-30] MEDS ORDERED: SODIUM CHLORIDE NASAL SPRAY 44 ML BOTTLE NS PRN ×2 (09:37→09:39)
[2018-09-30] MEDS: CHOLECALCIFEROL (VITAMIN D3) 1,000 UNIT TABLET (FP) PO SCH (09:42)
[2018-09-30] MEDS: APIXABAN 2.5 MG TABLET PO SCH ×2 (09:42→21:12)
[2018-09-30] MEDS: MULTIVITAMINS (DAILY MVI) TABLET (FP) PO SCH (09:42)
[2018-09-30] MEDS: TORSEMIDE 100 MG TABLET PO SCH (09:42)
[2018-09-30] MEDS: hydrALAZINE HCL 25 MG TABLET (FP) PO SCH ×2 (09:42→21:12)
[2018-09-30] MEDS: ISOSORBIDE MONONITRATE 30 MG TAB.SR.24H (FP) PO SCH (09:42)
[2018-09-30] MEDS: ALLOPURINOL 100 MG TABLET (FP) PO SCH ×2 (09:42→21:11)
--- NOTE | 2018-09-30 09:42 | PN ---
Progress Note (short form) - Note Progress Note: Dr. Sweet to document today. Await insurance approval for SNF placement. I called Vascular MD office Re: removing Shiley catheter. HD here today.
[2018-09-30] MEDS: FLUTICASONE PROP 0.05% 16 GM NASAL SPRAY NS SCH (09:43)
--- NOTE | 2018-09-30 10:58 | PN ---
Progress Note (short form) - Note Progress Note: PULMONARY Denies shortness of breath or chest pain. +lightheadedness. Vital Signs Period Temp Pulse Resp BP Sys/Dan Pulse Ox Last 24 Hr 98 F-98.1 F 61-68 20-20 132-134/55-66 Gen: NAD in chair Heart: RRR Lung: decreased breath sounds at the bases Abd: soft, nontender Ext: no edema CBC, BMP 09/30/18 06:35 09/30/18 06:35 Active Medications Acetaminophen (Tylenol -) 650 mg PO Q4H PRN PRN Reason: HEADACHE Last Admin: 09/29/18 09:46 Dose: 650 mg Allopurinol (Zyloprim -) 100 mg PO BID [facility] Last Admin: 09/30/18 09:42 Dose: 100 mg Apixaban (Eliquis -) 2.5 mg PO BID [facility] Last Admin: 09/30/18 09:42 Dose: 2.5 mg Atorvastatin Calcium (Lipitor -) 40 mg PO HS [facility] Last Admin: 09/29/18 21:57 Dose: 40 mg Cholecalciferol (Vitamin D3 -) 1,000 unit PO DAILY [facility] Last Admin: 09/30/18 09:42 Dose: 1,000 unit Fluticasone Propionate (Flonase -) 2 spray NS DAILY [facility] Last Admin: 09/30/18 09:43 Dose: 2 spr Hydralazine HCl (Apresoline -) 25 mg PO BID [facility] Last Admin: 09/30/18 09:42 Dose: 25 mg Isosorbide Mononitrate (Imdur -) 30 mg PO DAILY [facility] Last Admin: 09/30/18 09:42 Dose: 30 mg Levothyroxine Sodium (Synthroid -) 25 mcg PO 0700 [facility] Last Admin: 09/30/18 06:24 Dose: 25 mcg Metoprolol Succinate (Toprol Xl -) 100 mg PO DAILY [facility] Last Admin: 09/30/18 09:42 Dose: 100 mg Multivitamins/Minerals/Vitamin C (Tab-A-Vit -) 1 tab PO DAILY [facility] Last Admin: 09/30/18 09:42 Dose: 1 tab Sodium Chloride ([place] -) 2 spray NS TID PRN PRN Reason: NASAL CONGESTION Torsemide (Demadex -) 100 mg PO DAILY [facility] Last Admin: 09/30/18 09:42 Dose: 100 mg A/P 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
[2018-09-30] MEDS ORDERED: SODIUM CHLORIDE 250 ML IV PRN (11:45)
--- NOTE | 2018-09-30 11:55 | PN ---
Physical Exam: SUBJECTIVE: Patient seen and examined no new events overnight. feels good states breathing is much better OBJECTIVE: Vital Signs Period Temp Pulse Resp BP Sys/Dan Pulse Ox Last 24 Hr 98 F-98.1 F 61-68 20-20 132-134/55-66 GENERAL: The patient is awake, alert, and fully oriented, in no acute distress. HEAD: Normal with no signs of trauma. ENT: moist mucous membranes. NECK: Trachea midline, full range of motion, supple. LUNGS: Breath sounds equal, clear to auscultation bilaterally, no wheezes, minimal crackles on right side , no accessory muscle use. HEART: , S1, S2 normal ABDOMEN: Soft, nontender, nondistended, normoactive bowel sounds, no guarding, no rebound, EXTREMITIES: , warm, well-perfused, no tenderness NEUROLOGICAL: Normal speech, gait not observed. PSYCH: Normal mood, normal affect. SKIN: Warm, dry, Laboratory Results - last 24 hr 09/30/18 09/30/18 06:35 06:35 WBC 5.1 RBC 3.60 Hgb 12.2 Hct 36.7 MCV 101.9 H MCH 33.8 H MCHC 33.1 RDW 15.3 Plt Count 150 MPV 9.9 Absolute Neuts (auto) 2.9 Neutrophils % 56.0 Lymphocytes % 26.6 Monocytes % 10.4 H Eosinophils % 5.2 H Basophils % 1.8 Nucleated RBC % 0 Sodium 141 Potassium 3.6 Chloride 102 Carbon Dioxide 31 Anion Gap 8 BUN 57 H Creatinine 3.9 H Creat Clearance w eGFR 10.91 Random Glucose 84 Calcium 8.9 Phosphorus 4.2 Magnesium 2.0 Active Medications Generic Name Dose Route Start Last Admin Trade Name Freq PRN Reason Stop Dose Admin Acetaminophen 650 mg 09/28/18 13:30 09/29/18 09:46 Tylenol - PO 650 mg Q4H PRN Administration HEADACHE Allopurinol 100 mg 09/28/18 10:00 09/30/18 09:42 Zyloprim - PO 100 mg BID [facility] Administration Apixaban 2.5 mg 09/27/18 10:00 09/30/18 09:42 Eliquis - PO 2.5 mg BID [facility] Administration Atorvastatin Calcium 40 mg 09/28/18 22:00 09/29/18 21:57 Lipitor - PO 40 mg HS [facility] Administration Cholecalciferol 1,000 unit 09/28/18 10:00 09/30/18 09:42 Vitamin D3 - PO 1,000 unit DAILY [facility] Administration Fluticasone Propionate 2 spray 09/28/18 13:45 09/30/18 09:43 Flonase - NS 2 spr DAILY [facility] Administration Hydralazine HCl 25 mg 09/28/18 10:00 09/30/18 09:42 Apresoline - PO 25 mg BID [facility] Administration Sodium Chloride 250 mls @ 3,000 mls/hr 09/30/18 11:45 Normal Saline - IV 10/01/18 11:45 PRN PRN Hypotension during Dialysis Isosorbide Mononitrate 30 mg 09/28/18 10:00 09/30/18 09:42 Imdur - PO 30 mg DAILY [facility] Administration Levothyroxine Sodium 25 mcg 09/28/18 07:00 09/30/18 06:24 Synthroid - PO 25 mcg 0700 [facility] Administration Metoprolol Succinate 100 mg 09/26/18 18:15 09/30/18 09:42 Toprol Xl - PO 100 mg DAILY [facility] Administration Multivitamins/Minerals/Vitamin C 1 tab 09/28/18 10:00 09/30/18 09:42 Tab-A-Vit - PO 1 tab DAILY [facility] Administration Sodium Chloride 2 spray 09/30/18 09:39 [place] Nasal [place] - NS TID PRN NASAL CONGESTION Torsemide 100 mg 09/28/18 10:00 09/30/18 09:42 Demadex - PO 100 mg DAILY [facility] Administration ASSESSMENT/PLAN: (1) Pleural effusion Breathing much better on torsemide 100mg Pt will go for HD today. (2) ESRD (end stage renal disease) on dialysis Dr. Araujo on case: consult appreciated. on HD will go for HD today (3) Acute on chronic diastolic heart failure stable now torsemide increased to 100mg toprol xl 100mg daily breathing improved (4) Diabetes mellitus diet controlled bgm daily 5 HLD continue statin lipitor 40mg (6) HTN (hypertension) toprol xl 100 hydralazine 25 bid imdur 30 dailycontinue home regimen (7) D-dimer, elevated duplex venous negative 8) new onset afib rate contro; elequis 2.5bid Fluid: orally allowed electrolyte; repeat in am nutrition; low salt and diabetic diet dvt pro; elequis 2.5bid gi pro; not required dispo: pending placement Visit type - Emergency Visit Emergency Visit: Yes ED Registration Date: 09/25/18 Care time: The patient presented to the Emergency Department on the above date and was hospitalized for further evaluation of their emergent condition. - New Patient This patient is new to me today: No - Critical Care Critical Care patient: No
--- NOTE | 2018-09-30 13:08 | PN ---
Progress Note, Physician History of Present Illness: Dyspnea on exertion, near syncope and palpitations resolving post HD and diuresis. Remains in SR. - Current Medication List Current Medications: Active Medications Acetaminophen (Tylenol -) 650 mg PO Q4H PRN PRN Reason: HEADACHE Last Admin: 09/29/18 09:46 Dose: 650 mg Allopurinol (Zyloprim -) 100 mg PO BID [facility] Last Admin: 09/30/18 09:42 Dose: 100 mg Apixaban (Eliquis -) 2.5 mg PO BID [facility] Last Admin: 09/30/18 09:42 Dose: 2.5 mg Atorvastatin Calcium (Lipitor -) 40 mg PO HS [facility] Last Admin: 09/29/18 21:57 Dose: 40 mg Cholecalciferol (Vitamin D3 -) 1,000 unit PO DAILY [facility] Last Admin: 09/30/18 09:42 Dose: 1,000 unit Fluticasone Propionate (Flonase -) 2 spray NS DAILY [facility] Last Admin: 09/30/18 09:43 Dose: 2 spr Hydralazine HCl (Apresoline -) 25 mg PO BID [facility] Last Admin: 09/30/18 09:42 Dose: 25 mg Sodium Chloride (Normal Saline -) 250 mls @ 3,000 mls/hr IV PRN PRN PRN Reason: Hypotension during Dialysis Stop: 10/01/18 11:45 Isosorbide Mononitrate (Imdur -) 30 mg PO DAILY [facility] Last Admin: 09/30/18 09:42 Dose: 30 mg Levothyroxine Sodium (Synthroid -) 25 mcg PO 0700 [facility] Last Admin: 09/30/18 06:24 Dose: 25 mcg Metoprolol Succinate (Toprol Xl -) 100 mg PO DAILY [facility] Last Admin: 09/30/18 09:42 Dose: 100 mg Multivitamins/Minerals/Vitamin C (Tab-A-Vit -) 1 tab PO DAILY [facility] Last Admin: 09/30/18 09:42 Dose: 1 tab Sodium Chloride ([place] Nasal [place] -) 2 spray NS TID PRN PRN Reason: NASAL CONGESTION Torsemide (Demadex -) 100 mg PO DAILY [facility] Last Admin: 09/30/18 09:42 Dose: 100 mg - Objective Vital Signs: Vital Signs Temperature 98.0 F 09/30/18 07:00 Pulse Rate 61 09/30/18 07:00 Respiratory Rate 20 02/25/19 07:00 Blood Pressure 132/66 09/30/18 07:00 O2 Sat by Pulse Oximetry (%) 94 L 09/29/18 02:00 Constitutional: Yes: No Distress, Calm Neck: Yes: Supple Cardiovascular: Yes: Regular Rate and Rhythm Respiratory: Yes: Regular, CTA Bilaterally Gastrointestinal: Yes: Normal Bowel Sounds, Soft Edema: No Labs: CBC, BMP 09/30/18 06:35 09/30/18 06:35 Problem List - Problems (1) Anemia Code(s): D64.9 - ANEMIA, UNSPECIFIED Qualifiers: Anemia type: due to chronic kidney disease Chronic kidney disease stage: on chronic dialysis Qualified Code(s): N18.6 - End stage renal disease; D63.1 - Anemia in chronic kidney disease; Z99.2 - Dependence on renal dialysis (2) ESRD (end stage renal disease) on dialysis Code(s): N18.6 - END STAGE RENAL DISEASE; Z99.2 - DEPENDENCE ON RENAL DIALYSIS (3) Pleural effusion Code(s): J90 - PLEURAL EFFUSION, NOT ELSEWHERE CLASSIFIED (4) Shortness of breath Code(s): R06.02 - SHORTNESS OF BREATH (5) Acute on chronic systolic and diastolic heart failure, NYHA class 3 Code(s): I50.43 - ACUTE ON CHRONIC COMBINED SYSTOLIC AND DIASTOLIC HRT FAIL (6) Demand ischemia Code(s): I24.8 - OTHER FORMS OF ACUTE ISCHEMIC HEART DISEASE (7) Diabetes mellitus Code(s): E11.9 - TYPE 2 DIABETES MELLITUS WITHOUT COMPLICATIONS Qualifiers: Diabetes mellitus type: type 2 Diabetes mellitus half-way insulin use: without senior actuarial analyst use Diabetes mellitus complication status: with kidney complications Diabetes mellitus complication detail: with chronic kidney disease Chronic kidney disease stage: stage 4 (severe) Qualified Code(s): E11.22 - Type 2 diabetes mellitus with diabetic chronic kidney disease; N18.4 - Chronic kidney disease, stage 4 (severe) (8) HLD (hyperlipidemia) Code(s): E78.5 - HYPERLIPIDEMIA, UNSPECIFIED Qualifiers: Hyperlipidemia type: pure hypercholesterolemia Qualified Code(s): E78.00 - Pure hypercholesterolemia, unspecified; E78.0 - Pure hypercholesterolemia (9) HTN (hypertension) Code(s): I10 - ESSENTIAL (PRIMARY) HYPERTENSION Qualifiers: Hypertension type: renovascular hypertension Qualified Code(s): I15.0 - Renovascular hypertension (10) Hypothyroidism Code(s): E03.9 - HYPOTHYROIDISM, UNSPECIFIED Qualifiers: Hypothyroidism type: unspecified Qualified Code(s): E03.9 - Hypothyroidism , unspecified (11) Paroxysmal atrial fibrillation with rapid ventricular response Code(s): I48.0 - PAROXYSMAL ATRIAL FIBRILLATION Assessment/Plan Lexiscan MPI: 04/03/2018 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 Acute on chronic diastolic/systolic failure and R>L pleural effusions 2. PAF with RVR [id number] on Eliquis - in sinus rhythm 3. 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 HTN/HCVD 5. Hyperlipidemia 6. Type 2 DM 7. Hypothyroidism 8. CAD s/p PCI, demand ischemia 9. Hyperuricemia 10. Anemia of CKD 11. Breast ca s/p mastectomy PLAN: 1. HD per renal and continue Demadex 100 mg QD with monitoring renal function and electrolytes, 2. Continue to hold ARB given low GFR, Imdur 30 mg QD and Hydralazine 25 mg BID 3. Eliquis 2.5 mg BID, Lipitor 40 mg QHS, Toprol XL 100 qd 4. DVT and GI prophylaxis 5. Eventually patient will require right and left heart cardiac catheterization/ coronary angiography as outpatient for further evaluation of the above-noted systolic left ventricular dysfunction once euvolemic now that she is dialysis dependent 6. D/c planning with home PT
[2018-09-30 13:13] LABS: HBSAG SCREEN Negative (Negative); HEP B CORE AB, TOT Negative (Negative); HEP.C VIRUS AB <0.1 s/co ratio (0.0-0.9)
--- NOTE | 2018-09-30 15:45 | PN ---
Teaching Attending Note Name of Resident: Benjie Trinidad ATTENDING PHYSICIAN STATEMENT I saw and evaluated the patient. I reviewed the resident's note and discussed the case with the resident. I agree with the resident's findings and plan as documented. SUBJECTIVE: Ms Lua is without complaint. No cp, sob, n/v. OBJECTIVE: Last Vital Signs Temp Pulse Resp BP Pulse Ox 36.8 C 54 L 18 124/62 95 09/30/18 13:45 09/30/18 15:00 09/30/18 15:00 09/30/18 15:00 09/30/18 09:00 Gen: nad Pum: ctab w/o w/r/r CV: rrr w/o m/r/g Abd: +bs, s/nt/nd Ext: no c/c/e CBC, BMP 09/30/18 06:35 09/30/18 06:35 ASSESSMENT AND PLAN: -patient doing well -continue medical management -evaluation for SNF placement -if does not qualify, home with VNS Problem List - Problems (1) Pleural effusion Code(s): J90 - PLEURAL EFFUSION, NOT ELSEWHERE CLASSIFIED (2) ESRD (end stage renal disease) on dialysis Code(s): N18.6 - END STAGE RENAL DISEASE; Z99.2 - DEPENDENCE ON RENAL DIALYSIS (3) Acute on chronic diastolic heart failure Code(s): I50.33 - ACUTE ON CHRONIC DIASTOLIC (CONGESTIVE) HEART FAILURE (4) Diabetes mellitus Code(s): E11.9 - TYPE 2 DIABETES MELLITUS WITHOUT COMPLICATIONS Qualifiers: Diabetes mellitus type: type 2 Diabetes mellitus moth exterminator insulin use: without moth exterminator use Diabetes mellitus complication status: with kidney complications Diabetes mellitus complication detail: with chronic kidney disease Chronic kidney disease stage: stage 4 (severe) Qualified Code(s): E11.22 - Type 2 diabetes mellitus with diabetic chronic kidney disease; N18.4 - Chronic kidney disease, stage 4 (severe) (5) HLD (hyperlipidemia) Code(s): E78.5 - HYPERLIPIDEMIA, UNSPECIFIED Qualifiers: Hyperlipidemia type: pure hypercholesterolemia Qualified Code(s): E78.00 - Pure hypercholesterolemia, unspecified; E78.0 - Pure hypercholesterolemia (6) HTN (hypertension) Code(s): I10 - ESSENTIAL (PRIMARY) HYPERTENSION Qualifiers: Hypertension type: renovascular hypertension Qualified Code(s): I15.0 - Renovascular hypertension (7) D-dimer, elevated Code(s): R79.89 - OTHER SPECIFIED ABNORMAL FINDINGS OF BLOOD CHEMISTRY (8) Hypokalemia Code(s): E87.6 - HYPOKALEMIA
--- NOTE | 2018-09-30 17:12 | PN ---
Progress Note (short form) - Note Progress Note: Renal follow up for ESRD on HD Pt seen and examined at the bedside awake and alert no acute complaints but SOB not completely resolved. no CP, Abd pain, N/V/D Vital Signs Temperature 98.3 F 09/30/18 13:45 Pulse Rate 95 H 09/30/18 16:50 Respiratory Rate 18 09/30/18 16:50 Blood Pressure 107/54 L 09/30/18 16:50 O2 Sat by Pulse Oximetry (%) 95 09/30/18 09:00 Intake & Output 09/27/18 09/28/18 09/29/18 09/30/18 23:59 23:59 23:59 23:59 Intake Total 300 750 440 150 Balance 300 750 440 150 Weight 67.767 kg 63.866 kg 66.933 kg 65.544 kg NAD awake and alert + leg edema CBC, BMP 09/30/18 06:35 09/30/18 06:35 Current Medications Acetaminophen (Tylenol -) 650 mg PO Q4H PRN PRN Reason: HEADACHE Last Admin: 09/29/18 09:46 Dose: 650 mg Allopurinol (Zyloprim -) 100 mg PO BID [facility] Last Admin: 09/30/18 09:42 Dose: 100 mg Apixaban (Eliquis -) 2.5 mg PO BID [facility] Last Admin: 09/30/18 09:42 Dose: 2.5 mg Atorvastatin Calcium (Lipitor -) 40 mg PO HS [facility] Last Admin: 09/29/18 21:57 Dose: 40 mg Cholecalciferol (Vitamin D3 -) 1,000 unit PO DAILY [facility] Last Admin: 09/30/18 09:42 Dose: 1,000 unit Fluticasone Propionate (Flonase -) 2 spray NS DAILY [facility] Last Admin: 09/30/18 09:43 Dose: 2 spr Hydralazine HCl (Apresoline -) 25 mg PO BID [facility] Last Admin: 09/30/18 09:42 Dose: 25 mg Sodium Chloride (Normal Saline -) 250 mls @ 3,000 mls/hr IV PRN PRN PRN Reason: Hypotension during Dialysis Stop: 10/01/18 11:45 Isosorbide Mononitrate (Imdur -) 30 mg PO DAILY [facility] Last Admin: 09/30/18 09:42 Dose: 30 mg Levothyroxine Sodium (Synthroid -) 25 mcg PO 0700 [facility] Last Admin: 09/30/18 06:24 Dose: 25 mcg Metoprolol Succinate (Toprol Xl -) 100 mg PO DAILY [facility] Last Admin: 09/30/18 09:42 Dose: 100 mg Multivitamins/Minerals/Vitamin C (Tab-A-Vit -) 1 tab PO DAILY [facility] Last Admin: 09/30/18 09:42 Dose: 1 tab Sodium Chloride ([place] Nasal [place] -) 2 spray NS TID PRN PRN Reason: NASAL CONGESTION Torsemide (Demadex -) 100 mg PO DAILY [facility] Last Admin: 09/30/18 09:42 Dose: 100 mg 88 year old female with a PMH of ESRD on HD M/W/F , HTN, CAD s/p stent, Breast CA (s/p R mastectomy) who presented with acute onset of weakness and difficulty to breathe and admitted for CHF exacerbation. #ESRD on HD with fluid overload #CHF exacerbation For dialysis today wit aggressive UF as tolerated continue Torsemide daily can consider addition of ARB given pt is now dialysis dependent Low salt diet Contacted vascular surgery regarding removal of tunneled HD catheter, may possible be removed tomorrow. Miguel Ramirez DO
--- NOTE | 2018-09-30 17:26 | PN ---
Progress Note (short form) - Note Progress Note: Patient on dialysis with AV graft access. Permacath will be removed at bedside tomorrow AM.
[2018-09-30] MEDS ORDERED: PT OWN MED DRAWER 7, Y5N ONE ×2 (20:52)
[2018-09-30] MEDS: ACETAMINOPHEN 325 MG TABLET (FP) PO PRN (21:12)
[2018-09-30] MEDS: ATORVASTATIN CA 40 MG TABLET (FP) PO SCH (21:13)
[2018-10-01] MEDS: LEVOTHYROXINE NA 25 MCG TABLET (FP) PO SCH (06:33)
--- NOTE | 2018-10-01 08:10 | PN ---
Physical Exam: SUBJECTIVE: Patient seen and examined no new course overnight Pt states she is feeling much better and this is her best morning so far. OBJECTIVE: Vital Signs Period Temp Pulse Resp BP Sys/Dan Pulse Ox Last 24 Hr 97.3 F-98.3 F 54-119 18-20 98-130/50-69 95-95 GENERAL: The patient is awake, alert, and fully oriented, in no acute distress. HEAD: Normal with no signs of trauma. ENT: moist mucous membranes. NECK: Trachea midline, full range of motion, supple. LUNGS: Breath sounds equal, clear to auscultation bilaterally, no wheezes, minimal crackles on right side , no accessory muscle use. HEART: , S1, S2 normal ABDOMEN: Soft, nontender, nondistended, normoactive bowel sounds, no guarding, no rebound, EXTREMITIES: , warm, well-perfused, no tenderness NEUROLOGICAL: Normal speech, gait not observed. PSYCH: Normal mood, normal affect. SKIN: Warm, dry, Laboratory Results - last 24 hr 09/27/18 09/27/18 15:20 15:20 Hepatitis A IgM Ab Negative Hepatitis A Ab Total Negative Hep Bs Antigen Negative Negative Hep Bs Antibody Non reactive Hep B Core Total Ab Negative Hep B Core IgM Ab Negative Hepatitis C Antibody <0.1 Active Medications Generic Name Dose Route Start Last Admin Trade Name Shadiq PRN Reason Stop Dose Admin Acetaminophen 650 mg 09/28/18 13:30 09/30/18 21:12 Tylenol - PO 650 mg Q4H PRN Administration HEADACHE Allopurinol 100 mg 09/28/18 10:00 09/30/18 21:11 Zyloprim - PO 100 mg BID [facility] Administration Apixaban 2.5 mg 09/27/18 10:00 09/30/18 21:12 Eliquis - PO 2.5 mg BID [facility] Administration Atorvastatin Calcium 40 mg 09/28/18 22:00 09/30/18 21:13 Lipitor - PO 40 mg HS [facility] Administration Cholecalciferol 1,000 unit 09/28/18 10:00 09/30/18 09:42 Vitamin D3 - PO 1,000 unit DAILY [facility] Administration Fluticasone Propionate 2 spray 09/28/18 13:45 09/30/18 09:43 Flonase - NS 2 spr DAILY [facility] Administration Hydralazine HCl 25 mg 09/28/18 10:00 09/30/18 21:12 Apresoline - PO 25 mg BID [facility] Administration Sodium Chloride 250 mls @ 3,000 mls/hr 09/30/18 11:45 Normal Saline - IV 10/01/18 11:45 PRN PRN Hypotension during Dialysis Isosorbide Mononitrate 30 mg 09/28/18 10:00 09/30/18 09:42 Imdur - PO 30 mg DAILY [facility] Administration Levothyroxine Sodium 25 mcg 09/28/18 07:00 10/01/18 06:33 Synthroid - PO 25 mcg 0700 [facility] Administration Metoprolol Succinate 100 mg 09/26/18 18:15 09/30/18 09:42 Toprol Xl - PO 100 mg DAILY [facility] Administration Multivitamins/Minerals/Vitamin C 1 tab 09/28/18 10:00 09/30/18 09:42 Tab-A-Vit - PO 1 tab DAILY [facility] Administration Sodium Chloride 2 spray 09/30/18 09:39 09/30/18 21:14 [place] Nasal [place] - NS 2 spray TID PRN Administration NASAL CONGESTION Torsemide 100 mg 09/28/18 10:00 09/30/18 09:42 Demadex - PO 100 mg DAILY [facility] Administration ASSESSMENT/PLAN: (1) Pleural effusion Breathing much better on torsemide 100mg Hd was done yesterday (2) ESRD (end stage renal disease) on dialysis Dr. Araujo on case: consult appreciated. on HD permacath will be removed today at bed side by vascular surgery team (3) Acute on chronic diastolic heart failure stable now torsemide increased to 100mg toprol xl 100mg daily breathing improved (4) Diabetes mellitus diet controlled bgm daily 5 HLD continue statin lipitor 40mg (6) HTN (hypertension) toprol xl 100 hydralazine 25 bid imdur 30 dailycontinue home regimen (7) D-dimer, elevated duplex venous negative 8) new onset afib rate contro; elequis 2.5bid Fluid: orally allowed nutrition; low salt and diabetic diet dvt pro; elequis 2.5bid gi pro; not required dispo: pending placement Visit type - Emergency Visit Emergency Visit: Yes ED Registration Date: 09/25/18 Care time: The patient presented to the Emergency Department on the above date and was hospitalized for further evaluation of their emergent condition. - New Patient This patient is new to me today: No - Critical Care Critical Care patient: No
[2018-10-01 08:50] LABS: BASO % 1.3 % (0-2.0); EOS % 3.9 % (0-4.5); HEMATOCRIT 43.2 % (32.4-45.2); HEMOGLOBIN 14.4 GM/dL (10.7-15.3); LYMPH % 26.7 % (8-40); MCH 34.1 pg (25.7-33.7); MCHC 33.3 g/dl (32.0-36.0); MEAN CELL VOLUME 102.4 fl (80-96); MEAN PLT VOLUME 10.4 fl (7.5-11.1); MONO % 10.5 % (3.8-10.2); NEUT % 57.6 % (42.8-82.8); PLATELET COUNT 136 K/MM3 (134-434); RBC 4.22 M/mm3 (3.60-5.2); RDW 15.6 % (11.6-15.6)
--- NOTE | 2018-10-01 08:59 | PROC ---
Procedure Note Procedure: The existing Rt internal jugular permacath and surrounding skin was prepped with appropriate antiseptic cleanser and draped in a sterile fashion. Sutures were removed and Permacath was pulled and removed at bedside. Catheter was inspected and catheter looked intact. A sterile dressing was placed over the catheter site. Pt tolerated the procedure well with minimal bleeding.
[2018-10-01 09:13] LABS: ANION GAP 11 MMOL/L (8-16); BLOOD UREA NITROGEN 28 mg/dL (7-18); CALCIUM 8.7 mg/dL (8.5-10.1); CHLORIDE 100 mmol/L (98-107); CO2 30 mmol/L (21-32); CREATININE 3.1 mg/dL (0.55-1.3); GLUCOSE,RANDOM 102 mg/dL (74-106); MAGNESIUM 1.8 mg/dL (1.8-2.4); POTASSIUM 3.5 mmol/L (3.5-5.1); SODIUM 141 mmol/L (136-145)
[2018-10-01] MEDS: hydrALAZINE HCL 25 MG TABLET (FP) PO SCH ×2 (09:51→21:27)
[2018-10-01] MEDS: TORSEMIDE 100 MG TABLET PO SCH (09:51)
[2018-10-01] MEDS: ISOSORBIDE MONONITRATE 30 MG TAB.SR.24H (FP) PO SCH (09:53)
[2018-10-01] MEDS: ALLOPURINOL 100 MG TABLET (FP) PO SCH ×2 (09:56→21:37)
[2018-10-01] MEDS: APIXABAN 2.5 MG TABLET PO SCH ×2 (09:56→21:37)
[2018-10-01] MEDS: CHOLECALCIFEROL (VITAMIN D3) 1,000 UNIT TABLET (FP) PO SCH (09:56)
[2018-10-01] MEDS: MULTIVITAMINS (DAILY MVI) TABLET (FP) PO SCH (09:56)
[2018-10-01] MEDS: FLUTICASONE PROP 0.05% 16 GM NASAL SPRAY NS SCH (09:57)
[2018-10-01] MEDS ORDERED: SODIUM CHLORIDE 250 ML IV SCH (10:00)
--- NOTE | 2018-10-01 10:39 | PN ---
Progress Note (short form) - Note Progress Note: Dr. Sweet to document today. BP fell to 97/40 and 250 cc of Saline being infused IV. Discharge is delayed today due to BP drop and we are awaiting final decision on SNF VS VNS based on insurance acceptance. Patient is still basically in bed nearly the whole day. She says her family will help with laundry and food shopping at home +hopefully 4hr aide if SNF is denied.
--- NOTE | 2018-10-01 10:44 | PN ---
Teaching Attending Note Name of Resident: Benjie Trinidad ATTENDING PHYSICIAN STATEMENT I saw and evaluated the patient. I reviewed the resident's note and discussed the case with the resident. I agree with the resident's findings and plan as documented. SUBJECTIVE: Ms Lua says she does not know how she feels. Denies cp, sob, n/ v. OBJECTIVE: Last Vital Signs Temp Pulse Resp BP Pulse Ox 36.3 C L 65 20 97/40 L 95 10/01/18 10:03 10/01/18 10:03 10/01/18 10:03 10/01/18 10:03 09/30/18 21:00 Gen: nad Pulm: ctab w/o w/r/r CV: rrr w/o m/r/g Abd: +bs, s/nt/nd Ext: no c/c/e CBC, BMP 10/01/18 08:25 10/01/18 08:25 ASSESSMENT AND PLAN: -patient now with hypotension -suspect secondary to HD -will hold all antihypertensives -gentle rehydration with IVF,will give 250mL over 5 hours -discontinue discharge order secondary to hypotension -otherwise continue current management -monitor blood pressure today for improvement Problem List - Problems (1) Pleural effusion Code(s): J90 - PLEURAL EFFUSION, NOT ELSEWHERE CLASSIFIED (2) ESRD (end stage renal disease) on dialysis Code(s): N18.6 - END STAGE RENAL DISEASE; Z99.2 - DEPENDENCE ON RENAL DIALYSIS (3) Acute on chronic diastolic heart failure Code(s): I50.33 - ACUTE ON CHRONIC DIASTOLIC (CONGESTIVE) HEART FAILURE (4) Diabetes mellitus Code(s): E11.9 - TYPE 2 DIABETES MELLITUS WITHOUT COMPLICATIONS Qualifiers: Qualified Code(s): E11.22 - Type 2 diabetes mellitus with diabetic chronic kidney disease; N18.4 - Chronic kidney disease, stage 4 (severe) (5) HLD (hyperlipidemia) Code(s): E78.5 - HYPERLIPIDEMIA, UNSPECIFIED Qualifiers: Qualified Code(s): E78.00 - Pure hypercholesterolemia, unspecified; E78.0 - Pure hypercholesterolemia (6) HTN (hypertension) Code(s): I10 - ESSENTIAL (PRIMARY) HYPERTENSION Qualifiers: Qualified Code(s): I15.0 - Renovascular hypertension (7) D-dimer, elevated Code(s): R79.89 - OTHER SPECIFIED ABNORMAL FINDINGS OF BLOOD CHEMISTRY (8) Hypokalemia Code(s): E87.6 - HYPOKALEMIA
--- NOTE | 2018-10-01 10:44 | PN ---
Progress Note, Physician Chief Complaint: Events noted Generalized weakness History of Present Illness: Patient was seen and examined. Awake and alert. Chart was reviewed Denies chest pain, SOB or palpitations Low blood pressure - Current Medication List Current Medications: Active Medications Acetaminophen (Tylenol -) 650 mg PO Q4H PRN PRN Reason: HEADACHE Last Admin: 09/30/18 21:12 Dose: 650 mg Allopurinol (Zyloprim -) 100 mg PO BID [facility] Last Admin: 10/01/18 09:56 Dose: 100 mg Apixaban (Eliquis -) 2.5 mg PO BID [facility] Last Admin: 10/01/18 09:56 Dose: 2.5 mg Atorvastatin Calcium (Lipitor -) 40 mg PO HS [facility] Last Admin: 09/30/18 21:13 Dose: 40 mg Cholecalciferol (Vitamin D3 -) 1,000 unit PO DAILY [facility] Last Admin: 10/01/18 09:56 Dose: 1,000 unit Fluticasone Propionate (Flonase -) 2 spray NS DAILY [facility] Last Admin: 10/01/18 09:57 Dose: 2 spr Hydralazine HCl (Apresoline -) 25 mg PO BID [facility] Last Admin: 10/01/18 09:51 Dose: Not Given Sodium Chloride (Normal Saline -) 250 mls @ 3,000 mls/hr IV PRN PRN PRN Reason: Hypotension during Dialysis Stop: 10/01/18 11:45 Sodium Chloride (Normal Saline -) 250 mls @ 50 mls/hr IV ASDIR [facility] Stop: 10/01/18 14:59 Last Admin: 10/01/18 09:56 Dose: 50 mls/hr Isosorbide Mononitrate (Imdur -) 30 mg PO DAILY [facility] Last Admin: 10/01/18 09:53 Dose: Not Given Levothyroxine Sodium (Synthroid -) 25 mcg PO 0700 [facility] Last Admin: 10/01/18 06:33 Dose: 25 mcg Metoprolol Succinate (Toprol Xl -) 100 mg PO DAILY [facility] Last Admin: 10/01/18 09:51 Dose: Not Given Multivitamins/Minerals/Vitamin C (Tab-A-Vit -) 1 tab PO DAILY [facility] Last Admin: 10/01/18 09:56 Dose: 1 tab Sodium Chloride ([place] Nasal [place] -) 2 spray NS TID PRN PRN Reason: NASAL CONGESTION Last Admin: 09/30/18 21:14 Dose: 2 spray Torsemide (Demadex -) 100 mg PO DAILY [facility] Last Admin: 10/01/18 09:51 Dose: Not Given - Objective Vital Signs: Vital Signs Temperature 97.4 F L 10/01/18 10:03 Pulse Rate 65 10/01/18 10:03 Respiratory Rate 20 10/01/18 10:03 Blood Pressure 97/40 L 10/01/18 10:03 O2 Sat by Pulse Oximetry (%) 95 09/30/18 21:00 Eyes: Yes: PERRL HENT: Yes: Atraumatic Neck: Yes: Supple Cardiovascular: Yes: Regular Rate and Rhythm, S1, S2 Respiratory: Yes: CTA Bilaterally Gastrointestinal: Yes: Normal Bowel Sounds, Soft. No: Tenderness Edema: No Labs: CBC, BMP 10/01/18 08:25 10/01/18 08:25 Problem List - Problems (1) Anemia Code(s): D64.9 - ANEMIA, UNSPECIFIED Qualifiers: Anemia type: due to chronic kidney disease Chronic kidney disease stage: on chronic dialysis Qualified Code(s): N18.6 - End stage renal disease; D63.1 - Anemia in chronic kidney disease; Z99.2 - Dependence on renal dialysis (2) ESRD (end stage renal disease) on dialysis Code(s): N18.6 - END STAGE RENAL DISEASE; Z99.2 - DEPENDENCE ON RENAL DIALYSIS (3) Paroxysmal atrial fibrillation with rapid ventricular response Code(s): I48.0 - PAROXYSMAL ATRIAL FIBRILLATION (4) Acute on chronic diastolic heart failure Code(s): I50.33 - ACUTE ON CHRONIC DIASTOLIC (CONGESTIVE) HEART FAILURE (5) Acute on chronic systolic and diastolic heart failure, NYHA class 3 Code(s): I50.43 - ACUTE ON CHRONIC COMBINED SYSTOLIC AND DIASTOLIC HRT FAIL (6) Aortic stenosis, moderate Code(s): I35.0 - NONRHEUMATIC AORTIC (VALVE) STENOSIS (7) CHF (congestive heart failure) Code(s): I50.9 - HEART FAILURE, UNSPECIFIED Qualifiers: Heart failure type: combined systolic and diastolic Heart failure chronicity: chronic Qualified Code(s): I50.42 - Chronic combined systolic ( congestive) and diastolic (congestive) heart failure (8) Demand ischemia Code(s): I24.8 - OTHER FORMS OF ACUTE ISCHEMIC HEART DISEASE (9) Diabetes mellitus Code(s): E11.9 - TYPE 2 DIABETES MELLITUS WITHOUT COMPLICATIONS Qualifiers: Diabetes mellitus type: type 2 Diabetes mellitus adventure therapist insulin use: without [facility] use Diabetes mellitus complication status: with kidney complications Diabetes mellitus complication detail: with chronic kidney disease Chronic kidney disease stage: stage 4 (severe) Qualified Code(s): E11.22 - Type 2 diabetes mellitus with diabetic chronic kidney disease; N18.4 - Chronic kidney disease, stage 4 (severe) (10) HLD (hyperlipidemia) Code(s): E78.5 - HYPERLIPIDEMIA, UNSPECIFIED Qualifiers: Hyperlipidemia type: pure hypercholesterolemia Qualified Code(s): E78.00 - Pure hypercholesterolemia, unspecified; E78.0 - Pure hypercholesterolemia (11) HTN (hypertension) Code(s): I10 - ESSENTIAL (PRIMARY) HYPERTENSION Qualifiers: Hypertension type: renovascular hypertension Qualified Code(s): I15.0 - Renovascular hypertension (12) Hypothyroidism Code(s): E03.9 - HYPOTHYROIDISM, UNSPECIFIED Qualifiers: Hypothyroidism type: unspecified Qualified Code(s): E03.9 - Hypothyroidism , unspecified Assessment/Plan 1. Acute on chronic diastolic/systolic failure and R>L pleural effusions 2. PAF with RVR [id number] on Eliquis currently sinus rhythm 3. 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 HTN/HCVD 5. Hyperlipidemia 6. Type 2 DM 7. Hypothyroidism 8. CAD s/p PCI, demand ischemia 9. Anemia of CKD 10. Breast ca s/p mastectomy PLAN: 1. HD per renal and continue Demadex 100 mg QD with monitoring renal function and electrolytes, 2. Continue to hold ARB given low GFR, continue Imdur 30 mg QD and Hydralazine 25 mg BID 3. Eliquis 2.5 mg BID, Lipitor 40 mg QHS, Toprol XL 100 mg QD as tolerated 4. DVT and GI prophylaxis 5. Eventually patient will require right and left heart cardiac catheterization/ coronary angiography as outpatient for further evaluation of the above-noted systolic left ventricular dysfunction once euvolemic Further plans are to follow Cabrera Brandon MD
--- NOTE | 2018-10-01 11:25 | PN ---
Progress Note (short form) - Note Progress Note: PULMONARY Episode of lightheadedness earlier but now resolved. Denies shortness of breath or chest pain. Vital Signs Period Temp Pulse Resp BP Sys/Dan Pulse Ox Last 24 Hr 97.3 F-98.3 F 54-119 18-20 97-129/40-69 95 Gen: NAD in chair Heart: RRR Lung: decreased breath sounds at the bases Abd: soft, nontender Ext: no edema CBC, BMP 10/01/18 08:25 10/01/18 08:25 Active Medications Acetaminophen (Tylenol -) 650 mg PO Q4H PRN PRN Reason: HEADACHE Last Admin: 09/30/18 21:12 Dose: 650 mg Allopurinol (Zyloprim -) 100 mg PO BID [facility] Last Admin: 10/01/18 09:56 Dose: 100 mg Apixaban (Eliquis -) 2.5 mg PO BID [facility] Last Admin: 10/01/18 09:56 Dose: 2.5 mg Atorvastatin Calcium (Lipitor -) 40 mg PO HS [facility] Last Admin: 09/30/18 21:13 Dose: 40 mg Cholecalciferol (Vitamin D3 -) 1,000 unit PO DAILY [facility] Last Admin: 10/01/18 09:56 Dose: 1,000 unit Fluticasone Propionate (Flonase -) 2 spray NS DAILY [facility] Last Admin: 10/01/18 09:57 Dose: 2 spr Hydralazine HCl (Apresoline -) 25 mg PO BID [facility] Last Admin: 10/01/18 09:51 Dose: Not Given Sodium Chloride (Normal Saline -) 250 mls @ 3,000 mls/hr IV PRN PRN PRN Reason: Hypotension during Dialysis Stop: 10/01/18 11:45 Sodium Chloride (Normal Saline -) 250 mls @ 50 mls/hr IV ASDIR [facility] Stop: 10/01/18 14:59 Last Admin: 10/01/18 09:56 Dose: 50 mls/hr Isosorbide Mononitrate (Imdur -) 30 mg PO DAILY [facility] Last Admin: 10/01/18 09:53 Dose: Not Given Levothyroxine Sodium (Synthroid -) 25 mcg PO 0700 [facility] Last Admin: 10/01/18 06:33 Dose: 25 mcg Metoprolol Succinate (Toprol Xl -) 100 mg PO DAILY [facility] Last Admin: 10/01/18 09:51 Dose: Not Given Multivitamins/Minerals/Vitamin C (Tab-A-Vit -) 1 tab PO DAILY [facility] Last Admin: 10/01/18 09:56 Dose: 1 tab Sodium Chloride ([place] Nasal [place] -) 2 spray NS TID PRN PRN Reason: NASAL CONGESTION Last Admin: 09/30/18 21:14 Dose: 2 spray Torsemide (Demadex -) 100 mg PO DAILY [facility] Last Admin: 10/01/18 09:51 Dose: Not Given A/P 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
[2018-10-01] MEDS ORDERED: SODIUM CHLORIDE 250 ML IV PRN (15:01)
--- NOTE | 2018-10-01 15:01 | PN ---
Progress Note (short form) - Note Progress Note: Renal follow up for ESRD on HD Pt seen and examined at the bedside no acute complaints no sob, cp, abd pain s/p dialysis yesterday with 2kg UF, limited by leg cramping Vital Signs Temperature 97.6 F 10/01/18 14:00 Pulse Rate 87 10/01/18 14:00 Respiratory Rate 22 H 10/01/18 14:00 Blood Pressure 111/56 L 10/01/18 14:00 O2 Sat by Pulse Oximetry (%) 93 L 10/01/18 09:00 NAD awake and alert + leg edema CBC, BMP 10/01/18 08:25 10/01/18 08:25 Current Medications Acetaminophen (Tylenol -) 650 mg PO Q4H PRN PRN Reason: HEADACHE Last Admin: 09/30/18 21:12 Dose: 650 mg Allopurinol (Zyloprim -) 100 mg PO BID [facility] Last Admin: 10/01/18 09:56 Dose: 100 mg Apixaban (Eliquis -) 2.5 mg PO BID [facility] Last Admin: 10/01/18 09:56 Dose: 2.5 mg Atorvastatin Calcium (Lipitor -) 40 mg PO HS [facility] Last Admin: 09/30/18 21:13 Dose: 40 mg Cholecalciferol (Vitamin D3 -) 1,000 unit PO DAILY [facility] Last Admin: 10/01/18 09:56 Dose: 1,000 unit Fluticasone Propionate (Flonase -) 2 spray NS DAILY [facility] Last Admin: 10/01/18 09:57 Dose: 2 spr Hydralazine HCl (Apresoline -) 25 mg PO BID [facility] Last Admin: 10/01/18 09:51 Dose: Not Given Sodium Chloride (Normal Saline -) 250 mls @ 3,000 mls/hr IV PRN PRN PRN Reason: Hypotension during Dialysis Stop: 10/01/18 11:45 Isosorbide Mononitrate (Imdur -) 30 mg PO DAILY [facility] Last Admin: 10/01/18 09:53 Dose: Not Given Levothyroxine Sodium (Synthroid -) 25 mcg PO 0700 [facility] Last Admin: 10/01/18 06:33 Dose: 25 mcg Metoprolol Succinate (Toprol Xl -) 100 mg PO DAILY [facility] Last Admin: 10/01/18 09:51 Dose: Not Given Multivitamins/Minerals/Vitamin C (Tab-A-Vit -) 1 tab PO DAILY [facility] Last Admin: 10/01/18 09:56 Dose: 1 tab Sodium Chloride ([place] Nasal [place] -) 2 spray NS TID PRN PRN Reason: NASAL CONGESTION Last Admin: 09/30/18 21:14 Dose: 2 spray Torsemide (Demadex -) 100 mg PO DAILY [facility] Last Admin: 10/01/18 09:51 Dose: Not Given 88 year old female with a PMH of ESRD on HD M/W/F , HTN, CAD s/p stent, Breast CA (s/p R mastectomy) who presented with acute onset of weakness and difficulty to breathe and admitted for CHF exacerbation. #ESRD on HD with fluid overload #CHF exacerbation for next dialysis tomorrow with UF as tolerated Continue torsemide 100mg daily Renal diet, 1.2L fluid restriction discharge planning pending placement in rehab Miguel Ramirez DO
[2018-10-01] MEDS ORDERED: POLYETHYLENE GLYCOL 3350 119 GM BTL PO ONE (18:13)
[2018-10-01] MEDS ORDERED: PT OWN MED DRAWER 7, Y5N ONE (21:29)
[2018-10-01] MEDS: ATORVASTATIN CA 40 MG TABLET (FP) PO SCH (21:37)
[2018-10-02] MEDS ORDERED: HEPARIN NA (PORCINE) 5,000 UNITS/ML 1ML VIAL IVPUSH ONE ×2 (06:00→10:00)
[2018-10-02] MEDS: LEVOTHYROXINE NA 25 MCG TABLET (FP) PO SCH (06:15)
[2018-10-02 07:26] LABS: BASO % 1.2 % (0-2.0); EOS % 4.6 % (0-4.5); HEMATOCRIT 38.7 % (32.4-45.2); HEMOGLOBIN 12.8 GM/dL (10.7-15.3); LYMPH % 25.7 % (8-40); MCH 33.6 pg (25.7-33.7); MCHC 32.9 g/dl (32.0-36.0); MEAN PLT VOLUME 10.4 fl (7.5-11.1); NEUT % 58.5 % (42.8-82.8); PLATELET COUNT 117 K/MM3 (134-434); RDW 15.2 % (11.6-15.6); WHITE BLOOD COUNT 6.6 K/mm3 (4.0-10.0)
[2018-10-02 07:53] LABS: ANION GAP 10 MMOL/L (8-16); BLOOD UREA NITROGEN 42 mg/dL (7-18); CALCIUM 8.3 mg/dL (8.5-10.1); CHLORIDE 102 mmol/L (98-107); CO2 28 mmol/L (21-32); CREATININE 3.6 mg/dL (0.55-1.3); GLUCOSE,RANDOM 94 mg/dL (74-106); MAGNESIUM 1.9 mg/dL (1.8-2.4); PHOSPHOROUS 4.2 mg/dL (2.5-4.9); POTASSIUM 3.6 mmol/L (3.5-5.1); SODIUM 140 mmol/L (136-145)
--- NOTE | 2018-10-02 08:37 | PN ---
Progress Note (short form) - Note Progress Note: Hospitalist to document today. Blood pressure has resumed normal range after 250cc IV saline. For Discharge. She seems more motivated to go home; SNF denied. Paratransit to Dialysis. She will need to follow with Dr. Magdaleno Ruiz Cardiology post discharge. Will need VNS + Aide 4HR
[2018-10-02] MEDS ORDERED: HEPARIN NA (PORCINE) 5,000 UNITS/ML 1ML VIAL IVPUSH SCH (09:45)
[2018-10-02] MEDS: HEPARIN NA (PORCINE) 5,000 UNITS/ML 1ML VIAL IVPUSH SCH ×3 (10:30→12:30)
--- NOTE | 2018-10-02 11:52 | PN ---
Physical Exam: SUBJECTIVE: Patient seen and examined OBJECTIVE: Vital Signs Period Temp Pulse Resp BP Sys/Dan Pulse Ox Last 24 Hr 97.6 F-98.7 F 58-108 18-22 97-150/52-82 94-95 GENERAL: The patient is awake, alert, and fully oriented, in no acute distress. HEAD: Normal with no signs of trauma. ENT: moist mucous membranes. NECK: Trachea midline, full range of motion, supple. LUNGS: Breath sounds equal, clear to auscultation bilaterally, no wheezes, minimal crackles on right side , no accessory muscle use. HEART: , S1, S2 normal ABDOMEN: Soft, nontender, nondistended, normoactive bowel sounds, no guarding, no rebound, EXTREMITIES: , warm, well-perfused, no tenderness NEUROLOGICAL: Normal speech, gait not observed. PSYCH: Normal mood, normal affect. SKIN: Warm, dry, Laboratory Results - last 24 hr 10/02/18 10/02/18 07:00 07:00 WBC 6.6 RBC 3.80 Hgb 12.8 Hct 38.7 MCV 102.0 H MCH 33.6 MCHC 32.9 RDW 15.2 Plt Count 117 L MPV 10.4 Absolute Neuts (auto) 3.8 Neutrophils % 58.5 Lymphocytes % 25.7 Monocytes % 10.0 Eosinophils % 4.6 H Basophils % 1.2 Nucleated RBC % 0 Sodium 140 Potassium 3.6 Chloride 102 Carbon Dioxide 28 Anion Gap 10 BUN 42 H Creatinine 3.6 H Creat Clearance w eGFR 11.96 Random Glucose 94 Calcium 8.3 L Phosphorus 4.2 Magnesium 1.9 Active Medications Generic Name Dose Route Start Last Admin Trade Name Shadiq PRN Reason Stop Dose Admin Acetaminophen 650 mg 09/28/18 13:30 09/30/18 21:12 Tylenol - PO 650 mg Q4H PRN Administration HEADACHE Allopurinol 100 mg 09/28/18 10:00 10/01/18 21:37 Zyloprim - PO 100 mg BID ELHAM Administration Apixaban 2.5 mg 09/27/18 10:00 10/01/18 21:37 Eliquis - PO 2.5 mg BID ELHAM Administration Atorvastatin Calcium 40 mg 09/28/18 22:00 10/01/18 21:37 Lipitor - PO 40 mg HS ELHAM Administration Cholecalciferol 1,000 unit 09/28/18 10:00 10/01/18 09:56 Vitamin D3 - PO 1,000 unit DAILY ELHAM Administration Fluticasone Propionate 2 spray 09/28/18 13:45 10/01/18 09:57 Flonase - NS 2 spr DAILY ELHAM Administration Hydralazine HCl 25 mg 09/28/18 10:00 10/01/18 21:27 Apresoline - PO Not Given BID ELHAM Sodium Chloride 250 mls @ 3,000 mls/hr 09/30/18 11:45 Normal Saline - IV 10/01/18 11:45 PRN PRN Hypotension during Dialysis Sodium Chloride 250 mls @ 3,000 mls/hr 10/01/18 15:01 Normal Saline - IV 10/02/18 15:01 PRN PRN Hypotension during Dialysis Isosorbide Mononitrate 30 mg 09/28/18 10:00 10/01/18 09:53 Imdur - PO Not Given DAILY ELHAM Levothyroxine Sodium 25 mcg 09/28/18 07:00 10/02/18 06:15 Synthroid - PO 25 mcg 0700 ELHAM Administration Metoprolol Succinate 100 mg 09/26/18 18:15 10/01/18 09:51 Toprol Xl - PO Not Given DAILY ELHAM Multivitamins/Minerals/Vitamin C 1 tab 09/28/18 10:00 10/01/18 09:56 Tab-A-Vit - PO 1 tab DAILY ELHAM Administration Sodium Chloride 2 spray 09/30/18 09:39 09/30/18 21:14 [place] - NS 2 spray TID PRN Administration NASAL CONGESTION Torsemide 100 mg 09/28/18 10:00 10/01/18 09:51 Demadex - PO Not Given DAILY ELHAM ASSESSMENT/PLAN: (1) Pleural effusion Breathing much better on torsemide 80 mg daily Hd today (2) ESRD (end stage renal disease) on dialysis Dr. Araujo on case: consult appreciated. on HD permacath will be removed today at bed side by vascular surgery team (3) Acute on chronic diastolic heart failure stable now torsemide increased to 100mg toprol xl 100mg daily breathing improved (4) Diabetes mellitus diet controlled bgm daily 5 HLD continue statin lipitor 40mg (6) HTN (hypertension) toprol xl 100 hydralazine 25 bid imdur 30 dailycontinue home regimen (7) D-dimer, elevated duplex venous negative 8) new onset afib rate contro; elequis 2.5bid Fluid: orally allowed nutrition; low salt and diabetic diet dvt pro; elequis 2.5bid gi pro; not required dispo: pending placement Visit type - Emergency Visit Emergency Visit: Yes ED Registration Date: 09/25/18 Care time: The patient presented to the Emergency Department on the above date and was hospitalized for further evaluation of their emergent condition. - New Patient This patient is new to me today: No - Critical Care Critical Care patient: No - Discharge Referral Referred to [facility] Med P.C.: No
[2018-10-02] MEDS: MULTIVITAMINS (DAILY MVI) TABLET (FP) PO SCH (13:35)
[2018-10-02] MEDS: ALLOPURINOL 100 MG TABLET (FP) PO SCH (13:35)
[2018-10-02] MEDS: CHOLECALCIFEROL (VITAMIN D3) 1,000 UNIT TABLET (FP) PO SCH (13:36)
[2018-10-02] MEDS: TORSEMIDE 100 MG TABLET PO SCH (13:36)
[2018-10-02] MEDS: hydrALAZINE HCL 25 MG TABLET (FP) PO SCH (13:36)
[2018-10-02] MEDS: APIXABAN 2.5 MG TABLET PO SCH (13:37)
[2018-10-02] MEDS: ISOSORBIDE MONONITRATE 30 MG TAB.SR.24H (FP) PO SCH (13:37)
[2018-10-02] MEDS: FLUTICASONE PROP 0.05% 16 GM NASAL SPRAY NS SCH (13:37)
[2018-10-02 14:05] VITALS: BP 132/73; PULSE 98; TEMP 97.9
--- NOTE | 2018-10-02 14:09 | PN ---
Progress Note (short form) - Note Progress Note: Renal follow up for ESRD on HD Pt seen and examined during dialysis no acute complaints no dizziness, lightheadedness BP stable, access with good flow on dialysis Vital Signs Temperature 97.9 F 10/02/18 14:00 Pulse Rate 98 H 10/02/18 14:00 Respiratory Rate 21 H 10/02/18 14:00 Blood Pressure 132/73 10/02/18 14:00 O2 Sat by Pulse Oximetry (%) 95 10/02/18 09:00 NAD awake and alert trace leg edema CBC, BMP 10/02/18 07:00 10/02/18 07:00 Current Medications Acetaminophen (Tylenol -) 650 mg PO Q4H PRN PRN Reason: HEADACHE Last Admin: 09/30/18 21:12 Dose: 650 mg Allopurinol (Zyloprim -) 100 mg PO BID [facility] Last Admin: 10/02/18 13:35 Dose: 100 mg Apixaban (Eliquis -) 2.5 mg PO BID [facility] Last Admin: 10/02/18 13:37 Dose: 2.5 mg Atorvastatin Calcium (Lipitor -) 40 mg PO HS [facility] Last Admin: 10/01/18 21:37 Dose: 40 mg Cholecalciferol (Vitamin D3 -) 1,000 unit PO DAILY [facility] Last Admin: 10/02/18 13:36 Dose: 1,000 unit Fluticasone Propionate (Flonase -) 2 spray NS DAILY [facility] Last Admin: 10/02/18 13:37 Dose: 2 spr Hydralazine HCl (Apresoline -) 25 mg PO BID [facility] Last Admin: 10/02/18 13:36 Dose: 25 mg Sodium Chloride (Normal Saline -) 250 mls @ 3,000 mls/hr IV PRN PRN PRN Reason: Hypotension during Dialysis Stop: 10/01/18 11:45 Sodium Chloride (Normal Saline -) 250 mls @ 3,000 mls/hr IV PRN PRN PRN Reason: Hypotension during Dialysis Stop: 10/02/18 15:01 Isosorbide Mononitrate (Imdur -) 30 mg PO DAILY [facility] Last Admin: 10/02/18 13:37 Dose: 30 mg Levothyroxine Sodium (Synthroid -) 25 mcg PO 0700 [facility] Last Admin: 10/02/18 06:15 Dose: 25 mcg Metoprolol Succinate (Toprol Xl -) 100 mg PO DAILY [facility] Last Admin: 10/02/18 13:36 Dose: 100 mg Multivitamins/Minerals/Vitamin C (Tab-A-Vit -) 1 tab PO DAILY [facility] Last Admin: 10/02/18 13:35 Dose: 1 tab Sodium Chloride ([place] -) 2 spray NS TID PRN PRN Reason: NASAL CONGESTION Last Admin: 09/30/18 21:14 Dose: 2 spray Torsemide (Demadex -) 80 mg PO DAILY [facility] 88 year old female with a PMH of ESRD on HD M/W/F , HTN, CAD s/p stent, Breast CA (s/p R mastectomy) who presented with acute onset of weakness and difficulty to breathe and admitted for CHF exacerbation. #ESRD on HD with fluid overload #CHF exacerbation tolerating dialysis well continue torsemide 80mg daily (would hold on dialysis days) Low salt diet, fluid restriction discharge planning as per primary Miguel Ramirez DO
[2018-10-02] MEDS ORDERED: TORSEMIDE 20 MG TABLET (FP) PO SCH (14:15)
--- NOTE | 2018-10-02 15:32 | PN ---
Teaching Attending Note Name of Resident: Benjie Trinidad ATTENDING PHYSICIAN STATEMENT I saw and evaluated the patient. I reviewed the resident's note and discussed the case with the resident. I agree with the resident's findings and plan as documented. SUBJECTIVE: no new complaints denies any SOB OBJECTIVE: Vital Signs Temperature 97.9 F 10/02/18 14:00 Pulse Rate 98 H 10/02/18 14:00 Respiratory Rate 21 H 10/02/18 14:00 Blood Pressure 132/73 10/02/18 14:00 O2 Sat by Pulse Oximetry (%) 95 10/02/18 09:00 ASSESSMENT AND PLAN:88F w/ pmhx of ESRD (MWF), HTN, HLD, PAfib CAD s/p stent, breast cx (s/p R partial mastectomy), T2DM, diastolic/systolic CHF presents with 1 day history of sob, secondary to Decompensated CHF, improving on CHF management and HD. 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 Problem List - Problems (1) Acute on chronic systolic and diastolic heart failure, NYHA class 3 Assessment/Plan: evaluted by Cardiology consult cont current management Code(s): I50.43 - ACUTE ON CHRONIC COMBINED SYSTOLIC AND DIASTOLIC HRT FAIL (2) Pleural effusion Assessment/Plan: Due to decompensated CHF improving on HD Code(s): J90 - PLEURAL EFFUSION, NOT ELSEWHERE CLASSIFIED (3) HTN (hypertension) Assessment/Plan: Episode of Hypotention improved after fluid challenge Code(s): I10 - ESSENTIAL (PRIMARY) HYPERTENSION Qualifiers: Hypertension type: renovascular hypertension Qualified Code(s): I15.0 - Renovascular hypertension (4) Aortic stenosis, moderate Assessment/Plan: No active issue Code(s): I35.0 - NONRHEUMATIC AORTIC (VALVE) STENOSIS (5) Shortness of breath Assessment/Plan: Due to decompensated CHF Code(s): R06.02 - SHORTNESS OF BREATH (6) ESRD (end stage renal disease) on dialysis Assessment/Plan: on HD Code(s): N18.6 - END STAGE RENAL DISEASE; Z99.2 - DEPENDENCE ON RENAL DIALYSIS
[2018-10-03 19:35] VITALS: BMI 29.0
== END 2018-10-02 17:24 | disposition home or self-care (01) | DRG 291 ==
LOC: JER 18:45 → JERBED 21:10 → J4W 09-25 13:02 → OBSVTOIN 09-25 15:20 → INTOOBSV 09-25 15:20 → J6S 09-27 22:26
PROVIDERS: ADMIT Internal Medicine; ATTEND Internal Medicine
PROC: 5A1D70Z Performance of Urinary Filtration, Intermittent, Less than 6 Hours Per Day (ICD-10-PCS; principal; 2018-09-30)
PROC: 05PY33Z Removal of Infusion Device from Upper Vein, Percutaneous Approach (ICD-10-PCS; 2018-10-01)
DX: I13.2 Hypertensive heart and chronic kidney disease with heart failure and with stage 5 chronic kidney disease, or end stage renal disease (principal); N18.6 End stage renal disease; I50.43 Acute on chronic combined systolic (congestive) and diastolic (congestive) heart failure; J90 Pleural effusion, not elsewhere classified; I24.8 Other forms of acute ischemic heart disease; E78.5 Hyperlipidemia, unspecified; E11.9 Type 2 diabetes mellitus without complications; I48.0 Paroxysmal atrial fibrillation; E87.6 Hypokalemia; I25.10 Atherosclerotic heart disease of native coronary artery without angina pectoris; Z98.61 Coronary angioplasty status; E03.9 Hypothyroidism, unspecified; Z85.3 Personal history of malignant neoplasm of breast; I35.0 Nonrheumatic aortic (valve) stenosis; Z99.2 Dependence on renal dialysis; E87.70 Fluid overload, unspecified; D63.1 Anemia in chronic kidney disease
CPT/HCPCS: 36415; 71045-TC-FY; 71250-TC; 80048; 80053; 80074; 81003; 81015; 82550; 83735; 84100; 84443; 84484; 84550; 85025; 85379; 86704; 86706; 86707; 86708; 86803; 87086; 87340; 87350; 93005; 93010; 93306-TC; 93970-TC; 94761; 97116-GP; 97161-GP; 99285-25; G0378; J0885; J1644; J7030

== ENCOUNTER 2018-10-14 19:17 | Inpatient (IN) | payer BC ==
[2018-10-14 19:54] VITALS: BMI 29.2
--- NOTE | 2018-10-14 20:59 | PDOC ---
Attending Attestation - HPI HPI: 10/14/18 21:00 88YOF with significant PMH with, Afib (on Eliquis), ESRD (MWF), CAD (s/p cardiac stenting), HLD, HTN, DM, and CHF who presents to the ED from dialysis for elevated heart rate of 140bpm. - Physicial Exam PE: 10/14/18 21:46 GENERAL: Well-appearing, well-nourished. No apparent distress. HEENT: Normocephalic, atraumatic. PERRL, EOM intact. CARDIOVASCULAR: +Tachycardic. Irregularly irregular. PULMONARY: Clear to auscultation bilaterally. ABDOMEN: Soft, non-distended, non-tender. EXTREMITIES: +LUE AV fistula with good thrill. Normal ROM in all four extremities. No gross deformities. SKIN: Warm, dry. No rash NEUROLOGICAL: No focal neurological deficits. <Les Corona - Last Filed: 10/14/18 21:46> - Resident Resident Name: Rosemarie Pastor - ED Attending Attestation I have performed the following: I have examined & evaluated the patient, The case was reviewed & discussed with the resident, I agree w/resident's findings & plan, Exceptions are as noted - Medical Decision Making 10/14/18 21:47 this 88 yo female was at dialysis w [id number] recently diagnosed with afib, currently on eliquis pt almost completed dialysis,had 18 minutes to go but staff became concerned and had her transported to ER -pt is alert and denies any shortness of breath or chest pain -she was not aware of her rapid heart beat imp afib rvr at rate 140, normotensive plan cardizem IVp,reassess 10/14/18 21:53 cbc unremarkable, inr 1.18 10/14/18 23:20 pt is not is Patient's rate decreased to 140 to the 90s after Cardizem IV push. troponin 0.19 patient will be admitted to telemetry to trend the troponin 10/14/18 23:21 <Myra Cardoso - Last Filed: 10/14/18 23:21> Attestations - Attestations 10/14/18 21:16 Documentation prepared by Les Corona, acting as medical lab specialist for Myra Cardoso MD. <Les Corona - Last Filed: 10/14/18 21:46>
[2018-10-14] MEDS ORDERED: dilTIAZem HCL 50 MG/10 ML - 10 ML VIAL IVPUSH ONE ×2 (21:25→23:47)
[2018-10-14 21:28] LABS: BASO % 1.1 % (0-2.0); EOS % 2.2 % (0-4.5); HEMATOCRIT 35.4 % (32.4-45.2); HEMOGLOBIN 11.9 GM/dL (10.7-15.3); LYMPH % 17.9 % (8-40); MCH 33.7 pg (25.7-33.7); MCHC 33.6 g/dl (32.0-36.0); MEAN CELL VOLUME 100.3 fl (80-96); MEAN PLT VOLUME 9.4 fl (7.5-11.1); MONO % 9.3 % (3.8-10.2); NEUT % 69.5 % (42.8-82.8); PLATELET COUNT 178 K/MM3 (134-434); RBC 3.53 M/mm3 (3.60-5.2); RDW 14.3 % (11.6-15.6); WHITE BLOOD COUNT 6.7 K/mm3 (4.0-10.0)
[2018-10-14] MEDS ORDERED: dilTIAZem HCL 50 MG/10 ML - 10 ML VIAL ONE (21:38)
[2018-10-14 21:50] LABS: INR 1.18 (0.83-1.09); PROTHROMBIN TIME (PATIENT) 13.9 SEC (9.7-13.0)
[2018-10-14 21:53] LABS: ACTIVATED PTT 34.8 SECONDS (25.2-36.5)
[2018-10-14 22:18] LABS: ALBUMIN 3.2 g/dl (3.4-5.0); ALK PHOS 106 U/L (45-117); ANION GAP 8 MMOL/L (8-16); BILIRUBIN,TOTAL 0.5 mg/dL (0.2-1); BLOOD UREA NITROGEN 17 mg/dL (7-18); CALCIUM 8.8 mg/dL (8.5-10.1); CHLORIDE 101 mmol/L (98-107); CO2 28 mmol/L (21-32); CREATININE 1.8 mg/dL (0.55-1.3); GLUCOSE,RANDOM 108 mg/dL (74-106); MAGNESIUM 1.8 mg/dL (1.8-2.4); POTASSIUM 4.1 mmol/L (3.5-5.1); SGOT/AST 19 U/L (15-37); SGPT/ALT 18 U/L (13-61); SODIUM 137 mmol/L (136-145); TOT PROT 7.1 g/dl (6.4-8.2)
--- NOTE | 2018-10-14 23:36 | PN ---
Teaching Attending Note Name of Resident: Erwin Alejandra ATTENDING PHYSICIAN STATEMENT I saw and evaluated the patient. I reviewed the resident's note and discussed the case with the resident. I agree with the resident's findings and plan as documented. PCP: Dr. Padilla CV: Dr. Siddiqui SUBJECTIVE: Seen and examined; please refer to resident note for further historical documentation. 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 She has known hx Afib with elevated CV2 and is on Eliquis 2.5 BID and MS 100 at home; her BP is subject to fluctuations and is difficult to control per the last notes. She was discharged from here and came back to [facility] for syncope and had what she describes as an extensive workup and was discharged to [facility]. Thus, this would be her third hospitalization in 3 weeks. Records are pending. She was asx today at HD but it was cut short due to concerns regarding her HR and she was taken back to the ER. She appears euvolemic. ER events noted. We gave her a total of 7.5mg IV MT which got her HR to 80s-90s; she is on 100 QD MS at home per last DC summary but it is currently unknown if there was any changes made at OSH. 10 sys ROS done and negative aside from HPI PMH (ESRD (MWF), HTN, HLD, PAfib CAD s/p stent, breast cx (s/p R partial mastectomy), T2DM, diastolic/systolic CHF), PSH, Family hx, Social hx reviewed Medications reviewed; pending reconciliation OBJECTIVE: VS, labs, imaging reviewed NAD, AAO, resting comfortably in bed NC AT EOMI PERRLA Echo 09/2018 reviewed; shows severely reduced LVEF with global hypokinesis, normal RV Lexiscan 04/03/2018 Myopathic myocardium with diffuse moderate global HK LVEF 41 % Lexiscan 05/10/2016 Small mild anterior and inferior ischemia, LVEF 65% Echo 02/15/2018 Moderately decreased LV fxn, LAE, mild-mod MR, mod TR RVSP 30- 40 mmHg, mild-mod AR and small pericardial effusion ASSESSMENT AND PLAN: Patient presents for Afib with RVR and troponemia 1) AF with RVR -Would increase the dose of her home BB given her severely reduced EF and avoid negative inotropes at this time; continue her home eliquis. Consult her technician support association. Monitor on telemetry. Can use IV lopressor PRN as HR tolerates and would consider increasing the QD dose to 125 2) Severe Systolic CHF -Last month's echo reviewed; fluid control with HD. On BB, Imdur, hydralazine BID. No EDGAR/ARB given renal hx -During the last visit her fluid status was preventing her from getting R/L-cath ; she was supposed to followup as an OP when euvolemic. 3) Troponemia -Likely demand in the setting of tachycardia and ESRD; trend and monitor tele. No sx ACS. 4) ESRD on HD -Consult nephrology; QD BMP and monitor fluid status carefully 5) DM -SSI when inpt 6) HTN -Continue home meds; dose adjustments per CV. May have to as going up on rate control agent 7) CAD s/p stent -Continue home medications per alpeshce 8) HLD -Continue statin 9) Hx Breast CA -Nonacute; recommend OP followup 10) Hx Hypothyroidism -Can check TSH given presenting issue DVT px: on eliqus GI px: not indicated
--- NOTE | 2018-10-14 23:38 | PDOC ---
History of Present Illness - General Chief Complaint: Tachycardia Stated Complaint: TACHYCARDIA Time Seen by Provider: 10/14/18 19:50 History Source: Patient Exam Limitations: No Limitations - History of Present Illness Initial Comments: 10/14/18 23:32 Pt is an 88yo F with PMH of ESRD (HD MWF), Afib (on Eliquis) CAD s/p stent, CHF , HTN, HLD, NIDDM, Breast Ca s/p mastectomy presenting to ED for tachycardia during dialysis today. Pt states that she was found to have a heart rate in the 140s while at dialysis and states that she was almost done when it was stopped and was told to come to the hospital. Pt is denying sensation of palpitations, SOB, chest pain, cough, congestion, leg swelling, pleuritic chest pain, syncope , lightheadedness, fever, chills, urinary symptoms. PMD: Valerie Cards: Nitin Renal: Taylor Araujo PMH: see hpi PSH: see hpi Meds: see med red Allergies: Flagyl Past History - Past Medical History Allergies/Adverse Reactions: Allergies Allergy/AdvReac Type Severity Reaction Status Date / Time metronidazole [From Flagyl] Allergy Severe Swelling Verified 10/14/18 19:54 Home Medications: Ambulatory Orders Allopurinol [Zyloprim -] 100 mg PO BID 03/19/14 Atorvastatin Ca [Lipitor] 40 mg PO HS 03/19/14 Cholecalciferol (Vitamin D3) [Vitamin D3] 1,000 unit PO DAILY 03/19/14 Metoprolol Succinate [Toprol XL -] 100 mg PO HS 03/19/14 Multivitamins [Multivit ([facility] Formulary)] 1 tab PO DAILY 03/19/14 Guar Gum [Benefiber] 1 each PO BID #0 packet 05/21/14 Levothyroxine [Synthroid -] 25 mcg PO DAILY 02/13/18 Isosorbide Mononitrate [Imdur -] 30 mg PO DAILY #30 tab.sr.24h 04/19/18 hydrALAZINE HCL [Apresoline -] 25 mg PO BID #30 tablet 04/19/18 Apixaban [Eliquis] 2.5 mg PO BID #60 tablet 10/02/18 Torsemide [Demadex -] 80 mg PO DAILY #30 tablet 10/02/18 Anemia: No Asthma: No Cancer: (partial mastectomy, and lumpectomy) Cardiac Disorders: Yes (STENT 21 YRS AGO) CVA: No COPD: No CHF: Yes (TAKES LASIX) Dementia: No Diabetes: Yes (NIDDM) Dialysis: Yes (MON, WED , FRI) GI Disorders: No Disorders: No HTN: Yes Hypercholesterolemia: Yes Liver Disease: No Seizures: No Thyroid Disease: No - Surgical History Abdominal Surgery: (appendix removal) Appendectomy: Yes Cardiac Surgery: Yes (ANGIO) Cholecystectomy: No Lung Surgery: No Neurologic Surgery: No Orthopedic Surgery: No - Immunization History Immunization Up to Date: Yes - Suicide/Smoking/Psychosocial Hx Smoking Status: No Smoking History: Never smoked Have you smoked in the past 12 months: No Number of Cigarettes Smoked Daily: 0 Information on smoking cessation initiated: No Hx Alcohol Use: No Drug/Substance Use Hx: No Substance Use Type: None Hx Substance Use Treatment: No *Physical Exam - Vital Signs Last Vital Signs Temp Pulse Resp BP Pulse Ox 97.9 F 98 H 21 H 123/63 97 10/14/18 19:17 10/14/18 21:57 10/14/18 21:57 10/14/18 21:57 10/14/18 21:57 Moderate Sedation - Procedure Monitoring Vital Signs: Procedure Monitoring Vital Signs Temperature 97.9 F 10/14/18 19:17 Pulse Rate 98 H 10/14/18 21:57 Respiratory Rate 21 H 10/14/18 21:57 Blood Pressure 123/63 10/14/18 21:57 O2 Sat by Pulse Oximetry (%) 97 10/14/18 21:57 ED Treatment Course - LABORATORY CBC & Chemistry Diagram: 10/14/18 21:08 10/14/18 21:08 - ADDITIONAL ORDERS Additional order review: Laboratory Results 10/14/18 10/14/18 10/14/18 21:08 21:08 21:08 PT with INR 13.90 H INR 1.18 H PTT (Actin FS) 34.8 Sodium 137 Potassium 4.1 Chloride 101 Carbon Dioxide 28 Anion Gap 8 BUN 17 Creatinine 1.8 H Creat Clearance w eGFR 26.62 Random Glucose 108 H Calcium 8.8 Magnesium 1.8 Total Bilirubin 0.5 AST 19 ALT 18 Alkaline Phosphatase 106 Troponin I 0.19 H Total Protein 7.1 Albumin 3.2 L 10/14/18 21:08 RBC 3.53 L MCV 100.3 H MCHC 33.6 RDW 14.3 MPV 9.4 Neutrophils % 69.5 Lymphocytes % 17.9 D Monocytes % 9.3 Eosinophils % 2.2 Basophils % 1.1 - RADIOLOGY Radiology Studies Ordered: Category Date Time Status CHEST X-RAY PORTABLE* [RAD] Stat Radiology 10/14/18 21:26 Taken - Medications Given in the ED: ED Medications Discontinued Medications Generic Name Dose Route Start Last Admin Trade Name Amina PRN Reason Stop Dose Admin Diltiazem HCl 20 mg 10/14/18 21:25 10/14/18 21:50 Cardizem Injection - IVPUSH 10/14/18 21:26 20 mg ONCE ONE Administration Medical Decision Making - Medical Decision Making 10/14/18 23:36 Pt is an 88yo F with PMH of ESRD (HD MWF), Afib (on Eliquis) CAD s/p stent, CHF , HTN, HLD, NIDDM, Breast Ca s/p mastectomy presenting to ED for tachycardia during dialysis today. Pt states that she was found to have a heart rate in the 140s while at dialysis and states that she was almost done when it was stopped and was told to come to the hospital. Pt is denying sensation of palpitations, SOB, chest pain, cough, congestion, leg swelling, pleuritic chest pain, syncope , lightheadedness, fever, chills, urinary symptoms. Vitals: HR 140, saturating well on RA, BP wnl PE: irregularly irregular, no pedal edema, lungs clear Most likely Afib with RVR -cbc, cmp, trop, mg, coags -ekg, cxr -Will check rhythm prior to administration of diltiazem. EKG shows afib with RVR. Pt is not hypotensive. Will give 20mg diltiazem IV HR in the 90s after, BP wnl, saturating well on RA. Labs significant for Cr 1.8 (pt has ESRD) Trop 0.18, pt had dialysis today, could be from demand. Will admit *DC/Admit/Observation/Transfer - Discharge Dispostion Condition at time of disposition: Fair Decision to Admit order Date/Time: Decision to Admit Order Category Date Time Status Decision to Admit to Hospital Routine Admission 10/14/18 23:19 Active - Referrals Referrals: Walker Padilla MD [Primary Care Provider] - - Patient Instructions - Post Discharge Activity
[2018-10-14] MEDS ORDERED: dilTIAZem HCL 60 MG TABLET (FP) PO ONE (23:47)
[2018-10-14] MEDS ORDERED: dilTIAZem HCL 125 MG/25 ML - 25 ML VIAL ONE (23:51)
[2018-10-14] MEDS ORDERED: dilTIAZem HCL 60 MG TABLET (FP) ONE (23:51)
[2018-10-14] MEDS ORDERED: METOPROLOL TARTRATE 5 MG/5 ML VIAL IVPUSH ONE (23:54)
--- NOTE | 2018-10-15 00:05 | HP ---
CHIEF COMPLAINT: Tachycardia PCP: Horacio HISTORY OF PRESENT ILLNESS: Pt. is an 88 y.o. presenting from Dialysis for AFib w/ RVR. Pt. states that this morning while at Dialysis she was found to be tachycardic. Pt. states she was able to finish most of the dialysis but it was cut short due to her tachycardia to 140s. Pt was referred to the ED. Pt. at the time denied any chest pain, shortness of breath, fever, chills, palpitations, lightheadedness, dizziness, worsening numbness/tingling or any other concerning symptoms. Pt. states that prior to dialysis she was doing her rehabilitation at [facility] and "worked out pretty good." Pt. states that 3 hours after discharge from here she fainted at her daughter's house and was brought to [facility]. She was discharged from [facility] to [facility] for rehabilitation. Pt. denies any acute symptoms now except for tiredness and decreased appetite for the last 8 months. Pt. states that she has lost about 50 pounds over this time. Pt. denies any blood in the stool or urine and states that her last colonoscopy was normal. ER course was notable for: (1)EKG, CXR (2)Diltazem 20 mg (3) Recent Travel: No PAST MEDICAL HISTORY: Afib(Eliquis), ESRD(MWF), CAD( s/p stens 22+ years ago), HLD, HTN, NIDDM and sCHF PAST SURGICAL HISTORY: Partial Mastectomy on Right Breast, Biopsy of Left breast Social History: Smoking:Denies Alcohol: denies Drugs: Denies Family History: N/C Allergies metronidazole [From Flagyl] Allergy (Severe, Verified 10/14/18 19:54) Swelling HOME MEDICATIONS: Home Medications Medication Instructions Recorded Allopurinol [Zyloprim -] 100 mg PO BID 03/19/14 Atorvastatin Ca [Lipitor] 40 mg PO HS 03/19/14 Cholecalciferol (Vitamin D3) 1,000 unit PO DAILY 03/19/14 [Vitamin D3] Metoprolol Succinate [Toprol XL -] 100 mg PO HS 03/19/14 Multivitamins [Multivit ([facility] 1 tab PO DAILY 03/19/14 Formulary)] Guar Gum [Benefiber] 1 each PO BID #0 packet 05/21/14 Levothyroxine [Synthroid -] 25 mcg PO DAILY 02/13/18 Isosorbide Mononitrate [Imdur -] 30 mg PO DAILY #30 tab.sr.24h 04/19/18 hydrALAZINE HCL [Apresoline -] 25 mg PO BID #30 tablet 04/19/18 Apixaban [Eliquis] 2.5 mg PO BID #60 tablet 10/02/18 Torsemide [Demadex -] 80 mg PO DAILY #30 tablet 10/02/18 REVIEW OF SYSTEMS CONSTITUTIONAL: Present: malaise, loss of appetite, weight change Absent: fever , chills, diaphoresis, generalized weakness, HEENT: Present Dry Mouth Absent: rhinorrhea, nasal congestion, throat pain, throat swelling, difficulty swallowing, mouth swelling, ear pain, eye pain, visual changes CARDIOVASCULAR: Absent: chest pain, syncope, palpitations, irregular heart rate , lightheadedness, peripheral edema RESPIRATORY: Absent: cough, shortness of breath, dyspnea with exertion, orthopnea, wheezing, stridor, hemoptysis GASTROINTESTINAL:Absent: abdominal pain, abdominal distension, nausea, vomiting , diarrhea, constipation, melena, hematochezia GENITOURINARY: Absent: dysuria, frequency, urgency, hesitancy, hematuria, flank pain, genital pain MUSCULOSKELETAL: Absent: myalgia, arthralgia, joint swelling, back pain, neck pain SKIN: Absent: rash, itching, pallor HEMATOLOGIC/IMMUNOLOGIC: Absent: easy bleeding, easy bruising, lymphadenopathy, frequent infections ENDOCRINE: Present: unexplained weight loss, heat intolerance Absent: unexplained weight gain, , cold intolerance NEUROLOGIC: Absent: headache, focal weakness or paresthesias, dizziness, unsteady gait, seizure, mental status changes, bladder or bowel incontinence PSYCHIATRIC: Absent: anxiety, depression, suicidal or homicidal ideation, hallucinations. PHYSICAL EXAMINATION Vital Signs - 24 hr 10/14/18 10/14/18 10/14/18 19:17 21:50 21:57 Temperature 97.9 F Pulse Rate 140 H Pulse Rate [ 121 H 98 H Apical] Respiratory 18 21 H 21 H Rate Blood Pressure 143/78 Blood Pressure 138/80 123/63 [Right Arm] O2 Sat by Pulse 99 97 97 Oximetry (%) GENERAL: Awake, alert, and fully oriented, in no acute distress. HEAD: Normal with no signs of trauma. EYES: sclera anicteric, conjunctiva clear. No lid lag. EARS, NOSE, THROAT: Ears normal, nares patent, oropharynx clear without exudates. Dry mucous membranes. NECK: supple without lymphadenopathy, no carotid bruit, JVD, or masses. LUNGS: Bibasilar crackles. No accessory muscle use. HEART: Tachycardic, irregular rate and rhythm ABDOMEN: Soft, nontender, not distended, normoactive bowel sounds, no guarding, no rebound, no masses. MUSCULOSKELETAL: No CVA tenderness. UPPER EXTREMITIES: 2+ radial pulses, warm, well-perfused. No cyanosis. No clubbing. No peripheral edema. LOWER EXTREMITIES: 2+ dorsal pedal pulses, warm, well-perfused. No calf tenderness. No peripheral edema. NEUROLOGICAL: Normal speech. PSYCHIATRIC: Cooperative. Good eye contact. Appropriate mood and affect. SKIN: Warm, dry, normal capillary refill. Laboratory Results - last 24 hr 10/14/18 10/14/18 10/14/18 21:08 21:08 21:08 WBC 6.7 RBC 3.53 L Hgb 11.9 Hct 35.4 MCV 100.3 H MCH 33.7 MCHC 33.6 RDW 14.3 Plt Count 178 D MPV 9.4 Absolute Neuts (auto) 4.7 Neutrophils % 69.5 Lymphocytes % 17.9 D Monocytes % 9.3 Eosinophils % 2.2 Basophils % 1.1 Nucleated RBC % 0 PT with INR 13.90 H INR 1.18 H PTT (Actin FS) 34.8 Sodium 137 Potassium 4.1 Chloride 101 Carbon Dioxide 28 Anion Gap 8 BUN 17 Creatinine 1.8 H Creat Clearance w eGFR 26.62 Random Glucose 108 H Calcium 8.8 Magnesium 1.8 Total Bilirubin 0.5 AST 19 ALT 18 Alkaline Phosphatase 106 Troponin I Total Protein 7.1 Albumin 3.2 L 10/14/18 21:08 WBC RBC Hgb Hct MCV MCH MCHC RDW Plt Count MPV Absolute Neuts (auto) Neutrophils % Lymphocytes % Monocytes % Eosinophils % Basophils % Nucleated RBC % PT with INR INR PTT (Actin FS) Sodium Potassium Chloride Carbon Dioxide Anion Gap BUN Creatinine Creat Clearance w eGFR Random Glucose Calcium Magnesium Total Bilirubin AST ALT Alkaline Phosphatase Troponin I 0.19 H Total Protein Albumin ASSESSMENT/PLAN: Pt. is an 88 y.o. F w/ PMHx. of Afib(Eliquis), ESRD(MWF), CAD( s/p stenting 22+ years ago), HLD, HTN, NIDDM and sCHF presents from Dialysis center with Afib w/ RVR #Afib w/ RVR likely 2/2 Dehydration vs. Hypothyroidism EKG Trend Troponin: 0.19 f/u TSH f/u UA CXR shows blunting of costophrenic angles Last echo (09/26/18) showed severely decreased LV function with EF: 25-30% #Myelodysplasia Elevated Hgb, WBCs and Platelets Consider Heme Consult as this could be a contributing factor to Afib. #Weight Loss 2/2 Hypothyroidism? f/u TSH supplemental nutrition Stool Guaic- c/w Levothyroxine-consider increasing? #HLD c/w Lipitor #HTN c/w Hydralazine #Gout c/w Allopurinol #sCHF hold Torsemide c/w Imdur #FEN Gentle Hydration given sCHF monitor electrolytes, replete as needed Regular Diet #DVT Ppx. Eliquis #Disposition Rehabilitation- [facility] #Code Status DNR/DNI Visit type - Emergency Visit Emergency Visit: Yes ED Registration Date: 10/15/18 Care time: The patient presented to the Emergency Department on the above date and was hospitalized for further evaluation of their emergent condition. - New Patient This patient is new to me today: Yes Date on this admission: 10/15/18 - Critical Care Critical Care patient: No
[2018-10-15] MEDS ORDERED: METOPROLOL TARTRATE 5 MG/5 ML VIAL ONE ×2 (00:08→00:13)
[2018-10-15] MEDS ORDERED: METOPROLOL TARTRATE 5 MG/5 ML VIAL IVPUSH ONE (00:24)
[2018-10-15] MEDS ORDERED: METOPROLOL TARTRATE 5 MG/5 ML VIAL IVPUSH PRN ×2 (06:38→17:44)
[2018-10-15] MEDS ORDERED: LEVOTHYROXINE NA 25 MCG TABLET (FP) ONE (06:46)
[2018-10-15] MEDS: LEVOTHYROXINE NA 25 MCG TABLET (FP) PO SCH (06:55)
[2018-10-15 07:15] LABS: BASO % 0.8 % (0-2.0); EOS % 2.9 % (0-4.5); HEMATOCRIT 33.5 % (32.4-45.2); HEMOGLOBIN 11.2 GM/dL (10.7-15.3); LYMPH % 22.3 % (8-40); MCH 33.9 pg (25.7-33.7); MCHC 33.4 g/dl (32.0-36.0); MEAN CELL VOLUME 101.4 fl (80-96); MEAN PLT VOLUME 9.6 fl (7.5-11.1); MONO % 9.7 % (3.8-10.2); NEUT % 64.3 % (42.8-82.8); PLATELET COUNT 168 K/MM3 (134-434); RBC 3.31 M/mm3 (3.60-5.2); RDW 14.6 % (11.6-15.6); WHITE BLOOD COUNT 5.7 K/mm3 (4.0-10.0)
[2018-10-15 07:37] LABS: ANION GAP 7 MMOL/L (8-16); BLOOD UREA NITROGEN 23 mg/dL (7-18); CALCIUM 8.4 mg/dL (8.5-10.1); CHLORIDE 104 mmol/L (98-107); CO2 27 mmol/L (21-32); CREATININE 2.2 mg/dL (0.55-1.3); GLUCOSE,RANDOM 105 mg/dL (74-106); MAGNESIUM 1.8 mg/dL (1.8-2.4); PHOSPHOROUS 2.6 mg/dL (2.5-4.9); POTASSIUM 4.1 mmol/L (3.5-5.1); SODIUM 138 mmol/L (136-145)
[2018-10-15] MEDS: TORSEMIDE 20 MG TABLET (FP) PO SCH (09:43)
[2018-10-15] MEDS: CHOLECALCIFEROL (VITAMIN D3) 1,000 UNIT TABLET (FP) PO SCH (09:43)
[2018-10-15] MEDS: APIXABAN 2.5 MG TABLET PO SCH ×2 (09:43→21:41)
[2018-10-15] MEDS: ISOSORBIDE MONONITRATE 30 MG TAB.SR.24H (FP) PO SCH (09:43)
[2018-10-15] MEDS: hydrALAZINE HCL 25 MG TABLET (FP) PO SCH ×2 (09:43→21:41)
[2018-10-15] MEDS: MULTIVITAMINS (DAILY MVI) TABLET (FP) PO SCH (09:43)
[2018-10-15] MEDS: ALLOPURINOL 100 MG TABLET (FP) PO SCH ×2 (09:44→21:41)
--- NOTE | 2018-10-15 09:53 | PN ---
Teaching Attending Note Name of Resident: Aleksandra Kam ATTENDING PHYSICIAN STATEMENT I saw and evaluated the patient. I reviewed the resident's note and discussed the case with the resident. I agree with the resident's findings and plan as documented. SUBJECTIVE: Ms Lua says she is feeling well today. Denies cp, sob, n/v. OBJECTIVE: Last Vital Signs Temp Pulse Resp BP Pulse Ox 36.6 C 122 H 18 121/74 100 10/15/18 09:44 10/15/18 09:44 10/15/18 09:44 10/15/18 09:44 10/15/18 09:44 Gen: nad Pulm: ctab w/o w/r/r CV: irreg irreg, tachy, no m/r/g Abd: +bs, s/nt/nd Ext: no c/c/e CBC, BMP 10/15/18 06:30 10/15/18 06:30 ASSESSMENT AND PLAN: Problem List - Problems (1) Paroxysmal atrial fibrillation with rapid ventricular response Assessment/Plan: -patient with afib with rvr -remains tachycardic but in the 100s-110s -continue metoprolol but awaiting cardiology recommendations -continue eliquis Code(s): I48.0 - PAROXYSMAL ATRIAL FIBRILLATION (2) ESRD (end stage renal disease) on dialysis Assessment/Plan: -nephrology consulted -defer HD to Dr Ramirez Code(s): N18.6 - END STAGE RENAL DISEASE; Z99.2 - DEPENDENCE ON RENAL DIALYSIS (3) Elevated troponin Assessment/Plan: -cardiology consulted -recent ECHO showing 20% EF -patient would benefit from catheterization, defer to cardiology but suspect will need it soon -continue medical management Code(s): R74.8 - ABNORMAL LEVELS OF OTHER SERUM ENZYMES (4) Aortic stenosis, moderate Assessment/Plan: -no murmur heard on exam today Code(s): I35.0 - NONRHEUMATIC AORTIC (VALVE) STENOSIS (5) CHF (congestive heart failure) Assessment/Plan: -continue demadex -continue HD -continue toprol xl, hydralazine, and imdur -not in exacerbation today Code(s): I50.9 - HEART FAILURE, UNSPECIFIED Qualifiers: Heart failure type: combined systolic and diastolic Heart failure chronicity: chronic Qualified Code(s): I50.42 - Chronic combined systolic ( congestive) and diastolic (congestive) heart failure (6) HLD (hyperlipidemia) Assessment/Plan: -continue lipitor Code(s): E78.5 - HYPERLIPIDEMIA, UNSPECIFIED Qualifiers: Hyperlipidemia type: pure hypercholesterolemia Qualified Code(s): E78.00 - Pure hypercholesterolemia, unspecified; E78.0 - Pure hypercholesterolemia (7) HTN (hypertension) Assessment/Plan: -SBP in the 140s -room to adjust medications -await cardiology recommendations about increasing toprol or adding diltiazem Code(s): I10 - ESSENTIAL (PRIMARY) HYPERTENSION Qualifiers: Hypertension type: renovascular hypertension Qualified Code(s): I15.0 - Renovascular hypertension (8) Hypothyroidism Assessment/Plan: -TSH within normal limits Code(s): E03.9 - HYPOTHYROIDISM, UNSPECIFIED Qualifiers: Hypothyroidism type: unspecified Qualified Code(s): E03.9 - Hypothyroidism , unspecified
[2018-10-15] MEDS ORDERED: GUAR GUM PO SCH (10:00)
--- NOTE | 2018-10-15 10:27 | PN ---
Progress Note (short form) - Note Progress Note: The patient is readmitted for A.Fib with rapid rate. She was just admitted to [facility] 2 weeks ago for syncope thought to be related to lower BP from fluid excess removed during dialysis. However an Echocardiogram done there showed an EF of 20%. Her last Echo here was 25%. The Cardiology MDs have previously always mentioned Catherization in their evaluation. Maybe that should be scheduled.
[2018-10-15 11:19] LABS: URINE APPEARANCE SLCLOUDY; URINE BILIRUBIN NEGATIVE (<2.0 mg/dL); URINE COLOR YELLOW; URINE GLUCOSE (UA) NEGATIVE (NEGATIVE); URINE KETONE NEGATIVE (NEGATIVE); URINE LEUK ESTERASE NEGATIVE (NEGATIVE); URINE NITRITE NEGATIVE (NEGATIVE); URINE PROTEIN 3+ (NEGATIVE); URINE UROBILINOGEN NEGATIVE mg/dL (0.2-1.0)
[2018-10-15 11:23] LABS: EPI CELLS RARE /HPF (FEW); URINE BACTERIA RARE /hpf (NONE SEEN); URINE MUCUS RARE
--- NOTE | 2018-10-15 11:57 | CONSULT ---
Consult - text type - Consultation Consultation Note: Renal Consult for ESRD on HD This is a 88 year old woman with hx of ESRD on HD, P-Afib on eliquis, systolic HF who presented from outpatient dialysis with tachycardia and found to have Afib with RVR. Pt was w/o symptoms while on dialysis. No CP, SOB, Abd pain, N/V/ D. HD treatment was terminated early due to high HR. No fever, chills, diarrhea , N/V. PMHx: as above Allergies: NKDA Family Hx: NC Social Hx: No T/A/D ROS: as per HPI, all other pertinent ros negative Home Medications Medication Instructions Recorded Allopurinol [Zyloprim -] 100 mg PO BID 03/19/14 Atorvastatin Ca [Lipitor] 40 mg PO HS 03/19/14 Cholecalciferol (Vitamin D3) 1,000 unit PO DAILY 03/19/14 [Vitamin D3] Metoprolol Succinate [Toprol XL -] 100 mg PO HS 03/19/14 Multivitamins [Multivit ([facility] 1 tab PO DAILY 03/19/14 Formulary)] Guar Gum [Benefiber] 1 each PO BID #0 packet 05/21/14 Levothyroxine [Synthroid -] 25 mcg PO DAILY 02/13/18 Isosorbide Mononitrate [Imdur -] 30 mg PO DAILY #30 tab.sr.24h 04/19/18 hydrALAZINE HCL [Apresoline -] 25 mg PO BID #30 tablet 04/19/18 Apixaban [Eliquis] 2.5 mg PO BID #60 tablet 10/02/18 Torsemide [Demadex -] 80 mg PO DAILY #30 tablet 10/02/18 Vital Signs Temperature 97.8 F 10/15/18 09:44 Pulse Rate 122 H 10/15/18 09:44 Respiratory Rate 18 10/15/18 09:44 Blood Pressure 121/74 10/15/18 09:44 O2 Sat by Pulse Oximetry (%) 100 10/15/18 09:44 NAD awake and alert neck supple, no JVD RRR, no M/R CTA soft NT/ND no LE edema CBC, BMP 10/15/18 06:30 10/15/18 06:30 Current Medications Allopurinol (Zyloprim -) 100 mg PO BID [facility] Last Admin: 10/15/18 09:44 Dose: 100 mg Apixaban (Eliquis -) 2.5 mg PO BID [facility] Last Admin: 10/15/18 09:43 Dose: 2.5 mg Atorvastatin Calcium (Lipitor -) 40 mg PO HS [facility] Cholecalciferol (Vitamin D3 -) 1,000 unit PO DAILY [facility] Last Admin: 10/15/18 09:43 Dose: 1,000 unit Hydralazine HCl (Apresoline -) 25 mg PO BID [facility] Last Admin: 10/15/18 09:43 Dose: 25 mg Isosorbide Mononitrate (Imdur -) 30 mg PO DAILY [facility] Last Admin: 10/15/18 09:43 Dose: 30 mg Levothyroxine Sodium (Synthroid -) 25 mcg PO DAILY@0700 [facility] Last Admin: 10/15/18 06:55 Dose: 25 mcg Metoprolol Succinate (Toprol Xl -) 100 mg PO [facility] Metoprolol Tartrate (Lopressor Injection -) 2.5 mg IVPUSH Q6H PRN PRN Reason: HYPERTENSION Multivitamins/Minerals/Vitamin C (Tab-A-Vit -) 1 tab PO DAILY [facility] Last Admin: 10/15/18 09:43 Dose: 1 tab Torsemide (Demadex -) 80 mg PO DAILY [facility] Last Admin: 10/15/18 09:43 Dose: 80 mg 88 year old woman with hx of ESRD on HD, P-Afib on eliquis, systolic HF who presented from outpatient dialysis with tachycardia and found to have Afib with RVR. #ESRD on HD #Afib with RVR #Systolic HF #Hypothyrodisim no indication for CORRECTIVE THERAPIST today, next tx tomorrow continue rate control as per cardiology continue A/C Renal diet, 1.2L fluid restriction daily Dose all meds for intermittent HD Miguel Ramirez DO
--- NOTE | 2018-10-15 12:00 | CON.CARD ---
Consult Consult Specialty:: Cardiology Referred by:: Dr. Javier Sweet Reason for Consultation:: Cardiac evaluation - History of Present Illness Chief Complaint: Tachycardia History of Present Illness: Patient is an 88 year old female with underlying history of CAD s/p BMS to LAD ( 11/22/96), DM, HTN, hypercholesterolemia, systolic dysfunction with LVEF 40-45%, hypothyroidism, PAF [id number] score of 6 previously not on anticoagulation, ESRD on HD (M,W,F) who was transferred to [facility] ED with tachycardia to 140's during dialysis. She denies chest pain, SOB or palpitations. She denies paroxysmal nocturnal dyspnea or orthopnea. She denies fever or chills. She denies nausea, vomiting, diarrhea or abdominal pain. She denies headache or lightheadedness. She reports of syncope history with admission to [facility] and was sent to [facility] for rehabilitation. - History Source History Provided By: Patient, Medical Record Limitations to Obtaining History: No Limitations - Past Medical History Cardio/Vascular: Yes: AFIB, CAD (s/p stents around 20 years ago ), CHF, HTN, Hyperlipdemia Renal/: Yes: Renal Failure, Cancer, Hemodialysis Musculoskeletal: Yes: Osteoarthritis Endocrine: Yes: Diabetes Mellitus - Past Surgical History Past Surgical History: Yes: AV Fistula/Graft (Left arm), Mastectomy (partial R sided ), Stent - Alcohol/Substance Use Hx Alcohol Use: No History of Substance Use: reports: None - Smoking History Smoking history: Never smoked Have you smoked in the past 12 months: No Aproximately how many cigarettes per day: 0 - Social History Usual Living Arrangement: Alone ADL: Independent History of Recent Travel: No Home Medications - Allergies Allergies/Adverse Reactions: Allergies Allergy/AdvReac Type Severity Reaction Status Date / Time metronidazole [From Flagyl] Allergy Severe Swelling Verified 10/14/18 19:54 - Home Medications Home Medications: Ambulatory Orders Allopurinol [Zyloprim -] 100 mg PO BID 03/19/14 Atorvastatin Ca [Lipitor] 40 mg PO HS 03/19/14 Cholecalciferol (Vitamin D3) [Vitamin D3] 1,000 unit PO DAILY 03/19/14 Metoprolol Succinate [Toprol XL -] 100 mg PO HS 03/19/14 Multivitamins [Multivit ([facility] Formulary)] 1 tab PO DAILY 03/19/14 Guar Gum [Benefiber] 1 each PO BID #0 packet 05/21/14 Levothyroxine [Synthroid -] 25 mcg PO DAILY 02/13/18 Isosorbide Mononitrate [Imdur -] 30 mg PO DAILY #30 tab.sr.24h 04/19/18 hydrALAZINE HCL [Apresoline -] 25 mg PO BID #30 tablet 04/19/18 Apixaban [Eliquis] 2.5 mg PO BID #60 tablet 10/02/18 Torsemide [Demadex -] 80 mg PO DAILY #30 tablet 10/02/18 Family Disease History - Family Disease History Family Disease History: Other: Father (ETOH abuse), Brother (kidney CA, Alzheimer's dementia ) Review of Systems - Review of Systems Constitutional: denies: Chills, Fever Cardiovascular: reports: Palpitations. denies: Chest Pain, Shortness of Breath Respiratory: denies: Cough, Hemoptysis, Orthopnea, PND, SOB, SOB on Exertion Gastrointestinal: denies: Abdominal Pain, Constipation, Diarrhea, Melena, Nausea , Rectal Bleeding, Vomiting Genitourinary: denies: Dysuria, Hematuria Musculoskeletal: denies: Back Pain Neurological: denies: Dizziness, Headache, Seizure, Syncope Vital Signs: Vital Signs Temperature 97.8 F 10/15/18 09:44 Pulse Rate 122 H 10/15/18 09:44 Respiratory Rate 18 10/15/18 09:44 Blood Pressure 121/74 10/15/18 09:44 O2 Sat by Pulse Oximetry (%) 100 10/15/18 09:44 Eyes: Yes: PERRL HENT: Yes: Atraumatic Neck: Yes: Supple Respiratory: Yes: CTA Bilaterally Gastrointestinal: Yes: Normal Bowel Sounds, Soft. No: Tenderness Cardiovascular: Yes: Tachycardia, Pulse Irregular JVD: No PMI: Non-Displaced Heart Sounds: Yes: S1, S2 Murmur: Yes: Systolic Murmur, Grade 1 Edema: No - Other Data Labs, Other Data: CBC, BMP 10/15/18 06:30 10/15/18 06:30 INR, PTT INR 1.18 (0.83-1.09) H 10/14/18 21:08 Troponin, BNP 10/14/18 10/15/18 21:08 06:02 Troponin I 0.19 H 0.13 H Atrial fibrillation with RVR Echo: Report Reviewed Imaging - Results Chest X-ray: Report Reviewed (Atelectasis) EKG: Report Reviewed Problem List - Problems (1) ISELA (acute kidney injury) Code(s): N17.9 - ACUTE KIDNEY FAILURE, UNSPECIFIED (2) AVF (arteriovenous fistula) Code(s): I77.0 - ARTERIOVENOUS FISTULA, ACQUIRED (3) Acute on chronic diastolic heart failure Code(s): I50.33 - ACUTE ON CHRONIC DIASTOLIC (CONGESTIVE) HEART FAILURE (4) Acute on chronic systolic and diastolic heart failure, NYHA class 3 Code(s): I50.43 - ACUTE ON CHRONIC COMBINED SYSTOLIC AND DIASTOLIC HRT FAIL (5) [id number] kidney injury Code(s): N17.9 - ACUTE KIDNEY FAILURE, UNSPECIFIED; N18.9 - CHRONIC KIDNEY DISEASE, UNSPECIFIED Qualifiers: Acute renal failure type: unspecified (6) Anemia Code(s): D64.9 - ANEMIA, UNSPECIFIED Qualifiers: Anemia type: due to chronic kidney disease Chronic kidney disease stage: on chronic dialysis Qualified Code(s): N18.6 - End stage renal disease; D63.1 - Anemia in chronic kidney disease; Z99.2 - Dependence on renal dialysis (7) Aortic stenosis, moderate Code(s): I35.0 - NONRHEUMATIC AORTIC (VALVE) STENOSIS (8) Demand ischemia Code(s): I24.8 - OTHER FORMS OF ACUTE ISCHEMIC HEART DISEASE (9) Diabetes mellitus Code(s): E11.9 - TYPE 2 DIABETES MELLITUS WITHOUT COMPLICATIONS Qualifiers: Diabetes mellitus type: type 2 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 use Diabetes mellitus complication status: with kidney complications Diabetes mellitus complication detail: with chronic kidney disease Chronic kidney disease stage: stage 4 (severe) Qualified Code(s): E11.22 - Type 2 diabetes mellitus with diabetic chronic kidney disease; N18.4 - Chronic kidney disease, stage 4 (severe) (10) ESRD (end stage renal disease) on dialysis Code(s): N18.6 - END STAGE RENAL DISEASE; Z99.2 - DEPENDENCE ON RENAL DIALYSIS (11) HLD (hyperlipidemia) Code(s): E78.5 - HYPERLIPIDEMIA, UNSPECIFIED Qualifiers: Hyperlipidemia type: pure hypercholesterolemia Qualified Code(s): E78.00 - Pure hypercholesterolemia, unspecified; E78.0 - Pure hypercholesterolemia (12) HTN (hypertension) Code(s): I10 - ESSENTIAL (PRIMARY) HYPERTENSION Qualifiers: Hypertension type: renovascular hypertension Qualified Code(s): I15.0 - Renovascular hypertension (13) Hypothyroidism Code(s): E03.9 - HYPOTHYROIDISM, UNSPECIFIED Qualifiers: Hypothyroidism type: unspecified Qualified Code(s): E03.9 - Hypothyroidism , unspecified (14) Paroxysmal atrial fibrillation with rapid ventricular response Code(s): I48.0 - PAROXYSMAL ATRIAL FIBRILLATION (15) Pleural effusion Code(s): J90 - PLEURAL EFFUSION, NOT ELSEWHERE CLASSIFIED Assessment/Plan 1. AF with RVR [id number] score of 6 on DOAC (Eliquis) 2. ESRD on HD 3. Acute on chronic diastolic/systolic failure with pleural effusion 4. HTN/HCVD 5. Hypercholesterolemia 6. Type 2 DM 7. CAD s/p PCI/BMS, demand ischemia 8. Anemia due CKD 9. Breast CA s/p mastectomy PLAN: 1. Continue Metoprolol ER but my uptitrate to 100 mg AM and 50 mg PM 2. May give IV Lopressor for further rate control 3. Continue Hydralazine and Imdur 4. Continue Demadex 5. HD as per Renal 6. Continue Eliquis 2.5 mg BID 7. Prior recommendation was to pursue right and left heart cath at some point in the near future when she is stable 8. Monitor renal function and electrolytes Further plans are to follow Cabrera Brandon MD
--- NOTE | 2018-10-15 13:32 | EKG ---
Test Reason : Blood Pressure : / mmHG Vent. Rate : 127 BPM Atrial Rate : 105 BPM P-R Int : 000 ms QRS Dur : 132 ms QT Int : 380 ms P-R-T Axes : 000 -61 108 degrees QTc Int : 552 ms ATRIAL FIBRILLATION WITH RAPID VENTRICULAR RESPONSE WITH PREMATURE VENTRICULAR OR ABERRANTLY CONDUCTED COMPLEXES LEFT AXIS DEVIATION LEFT BUNDLE BRANCH BLOCK ABNORMAL ECG WHEN COMPARED WITH ECG OF 14-OCT-2018 21:22, NO SIGNIFICANT CHANGE WAS FOUND Confirmed by MD ANGELIQUE, MATHIEU ([id number]) on 10/15/2018 1:31:53 PM Referred By: Confirmed By:MATHIEU MERINO MD
--- NOTE | 2018-10-15 13:34 | EKG ---
Test Reason : Blood Pressure : / mmHG Vent. Rate : 129 BPM Atrial Rate : 129 BPM P-R Int : 000 ms QRS Dur : 132 ms QT Int : 334 ms P-R-T Axes : 000 -55 121 degrees QTc Int : 489 ms ATRIAL FIBRILLATION WITH RAPID VENTRICULAR RESPONSE WITH PREMATURE VENTRICULAR OR ABERRANTLY CONDUCTED COMPLEXES LEFT AXIS DEVIATION LEFT BUNDLE BRANCH BLOCK ABNORMAL ECG WHEN COMPARED WITH ECG OF 25-SEP-2018 01:30, NO SIGNIFICANT CHANGE WAS FOUND Confirmed by MD ANGELIQUE, MATHIEU ([id number]) on 10/15/2018 1:34:05 PM Referred By: Confirmed By:MATHIEU MERINO MD
--- NOTE | 2018-10-15 18:34 | PN ---
Physical Exam: SUBJECTIVE: Patient seen and examined, no complaints; resting in bed; denies palpitations, sob, cp. OBJECTIVE: Vital Signs Period Temp Pulse Resp BP Sys/Dan Pulse Ox Last 24 Hr 97.8 F-98.3 F 96-140 15-21 121-143/63-84 94-100 GENERAL: The patient is awake, alert, and fully oriented, in no acute distress. NECK: Trachea midline, full range of motion, supple. LUNGS: Breath sounds equal, clear to auscultation bilaterally, no wheezes, no crackles, no accessory muscle use. HEART: tachycardic and irregular rhythm, S1, S2 without murmur, rub or gallop. ABDOMEN: Soft, nontender, nondistended, normoactive bowel sounds, no guarding, no rebound, no hepatosplenomegaly, no masses. EXTREMITIES: 2+ pulses, warm, well-perfused, no edema. NEUROLOGICAL: Cranial nerves II through XII grossly intact. Normal speech, gait not observed. PSYCH: Normal mood, normal affect. SKIN: Warm, dry, normal turgor, no rashes or lesions noted Laboratory Results - last 24 hr 10/14/18 10/14/18 10/14/18 21:08 21:08 21:08 WBC 6.7 RBC 3.53 L Hgb 11.9 Hct 35.4 MCV 100.3 H MCH 33.7 MCHC 33.6 RDW 14.3 Plt Count 178 D MPV 9.4 Absolute Neuts (auto) 4.7 Neutrophils % 69.5 Lymphocytes % 17.9 D Monocytes % 9.3 Eosinophils % 2.2 Basophils % 1.1 Nucleated RBC % 0 PT with INR 13.90 H INR 1.18 H PTT (Actin FS) 34.8 Sodium 137 Potassium 4.1 Chloride 101 Carbon Dioxide 28 Anion Gap 8 BUN 17 Creatinine 1.8 H Creat Clearance w eGFR 26.62 Random Glucose 108 H Calcium 8.8 Phosphorus Magnesium 1.8 Total Bilirubin 0.5 AST 19 ALT 18 Alkaline Phosphatase 106 Troponin I Total Protein 7.1 Albumin 3.2 L TSH Urine Color Urine Appearance Urine pH Ur Specific [place] Urine Protein Urine Glucose (UA) Urine Ketones Urine Blood Urine Nitrite Urine Bilirubin Urine Urobilinogen Ur Leukocyte Esterase Urine WBC (Auto) Urine RBC (Auto) Ur Epithelial Cells Urine Bacteria Urine Mucus Influenza A (Rapid) Influenza B (Rapid) 10/14/18 10/15/18 10/15/18 21:08 01:55 06:02 WBC RBC Hgb Hct MCV MCH MCHC RDW Plt Count MPV Absolute Neuts (auto) Neutrophils % Lymphocytes % Monocytes % Eosinophils % Basophils % Nucleated RBC % PT with INR INR PTT (Actin FS) Sodium Potassium Chloride Carbon Dioxide Anion Gap BUN Creatinine Creat Clearance w eGFR Random Glucose Calcium Phosphorus Magnesium Total Bilirubin AST ALT Alkaline Phosphatase Troponin I 0.19 H 0.13 H Total Protein Albumin TSH Urine Color Urine Appearance Urine pH Ur Specific [place] Urine Protein Urine Glucose (UA) Urine Ketones Urine Blood Urine Nitrite Urine Bilirubin Urine Urobilinogen Ur Leukocyte Esterase Urine WBC (Auto) Urine RBC (Auto) Ur Epithelial Cells Urine Bacteria Urine Mucus Influenza A (Rapid) Negative Influenza B (Rapid) Negative 10/15/18 10/15/18 10/15/18 06:05 06:30 06:30 WBC 5.7 RBC 3.31 L Hgb 11.2 Hct 33.5 MCV 101.4 H MCH 33.9 H MCHC 33.4 RDW 14.6 Plt Count 168 MPV 9.6 Absolute Neuts (auto) 3.7 Neutrophils % 64.3 Lymphocytes % 22.3 D Monocytes % 9.7 Eosinophils % 2.9 Basophils % 0.8 Nucleated RBC % 0 PT with INR INR PTT (Actin FS) Sodium 138 Potassium 4.1 Chloride 104 Carbon Dioxide 27 Anion Gap 7 L BUN 23 H Creatinine 2.2 H Creat Clearance w eGFR 21.11 Random Glucose 105 Calcium 8.4 L Phosphorus 2.6 Magnesium 1.8 Total Bilirubin AST ALT Alkaline Phosphatase Troponin I Total Protein Albumin TSH 3.03 Urine Color Urine Appearance Urine pH Ur Specific [place] Urine Protein Urine Glucose (UA) Urine Ketones Urine Blood Urine Nitrite Urine Bilirubin Urine Urobilinogen Ur Leukocyte Esterase Urine WBC (Auto) Urine RBC (Auto) Ur Epithelial Cells Urine Bacteria Urine Mucus Influenza A (Rapid) Influenza B (Rapid) 10/15/18 10:48 WBC RBC Hgb Hct MCV MCH MCHC RDW Plt Count MPV Absolute Neuts (auto) Neutrophils % Lymphocytes % Monocytes % Eosinophils % Basophils % Nucleated RBC % PT with INR INR PTT (Actin FS) Sodium Potassium Chloride Carbon Dioxide Anion Gap BUN Creatinine Creat Clearance w eGFR Random Glucose Calcium Phosphorus Magnesium Total Bilirubin AST ALT Alkaline Phosphatase Troponin I Total Protein Albumin TSH Urine Color Yellow Urine Appearance Slcloudy Urine pH 5.0 Ur Specific [place] 1.009 L Urine Protein 3+ H Urine Glucose (UA) Negative Urine Ketones Negative Urine Blood Negative Urine Nitrite Negative Urine Bilirubin Negative Urine Urobilinogen Negative Ur Leukocyte Esterase Negative Urine WBC (Auto) 3 Urine RBC (Auto) 1 Ur Epithelial Cells Rare Urine Bacteria Rare Urine Mucus Rare Influenza A (Rapid) Influenza B (Rapid) Active Medications Generic Name Dose Route Start Last Admin Trade Name Freq PRN Reason Stop Dose Admin Allopurinol 100 mg 10/15/18 10:00 10/15/18 09:44 Zyloprim - PO 100 mg BID ELHAM Administration Apixaban 2.5 mg 10/15/18 10:00 10/15/18 09:43 Eliquis - PO 2.5 mg BID ELHAM Administration Atorvastatin Calcium 40 mg 10/15/18 22:00 Lipitor - PO HS [facility] Cholecalciferol 1,000 unit 10/15/18 10:00 10/15/18 09:43 Vitamin D3 - PO 1,000 unit DAILY ELHAM Administration Hydralazine HCl 25 mg 10/15/18 10:00 10/15/18 09:43 Apresoline - PO 25 mg BID ELHAM Administration Isosorbide Mononitrate 30 mg 10/15/18 10:00 10/15/18 09:43 Imdur - PO 30 mg DAILY ELHAM Administration Levothyroxine Sodium 25 mcg 10/15/18 07:00 10/15/18 06:55 Synthroid - PO 25 mcg DAILY@0700 [facility] Administration Metoprolol Succinate 100 mg 10/15/18 22:00 Toprol Xl - PO HS [facility] Metoprolol Tartrate 5 mg 10/15/18 17:44 10/15/18 17:49 Lopressor Injection - IVPUSH 5 mg Q6H PRN Administration HYPERTENSION Multivitamins/Minerals/Vitamin C 1 tab 10/15/18 10:00 10/15/18 09:43 Tab-A-Vit - PO 1 tab DAILY ELHAM Administration Torsemide 80 mg 10/15/18 10:00 10/15/18 09:43 Demadex - PO 80 mg DAILY ELHAM Administration ASSESSMENT/PLAN: This is a 88 year old female with a history of CAD s/p stent placement in 1996, DM, HTN, HLD, systolic CHF who presents after being in atrial fibrillation with rvr during dialysis. #rapid atrial fibrillation with RVR -control with metoprolol er; up titrate as tolerated -lopressor prn -eliquis 2.5mg bid for AC -phylicia cardio recs #systolic/diastolic chf -monitor I/O; wt -torsemide #CAD: -w/u cardiac cath as outpatient #HTN: -hydralyzine and imdur #macrocytic anemia -anemia can be from chronic ckd; possible vit def -will check, b12, folate, iron stores hemoglobin >11; no need for epogen at this time #HLD-statin #DM- -insulin ss; bgm sq #ESRD -HD -reneal following #hx breast Ca; s/p mastectomy #gout hx; controlled -on allopurinol Fluids: restrict to 1.2 L per day Diabetic diet Dvt ppl; heparin Disposition: tele Visit type - Emergency Visit Emergency Visit: Yes ED Registration Date: 10/15/18 Care time: The patient presented to the Emergency Department on the above date and was hospitalized for further evaluation of their emergent condition. - New Patient This patient is new to me today: Yes Date on this admission: 10/15/18 - Critical Care Critical Care patient: No
[2018-10-15] MEDS ORDERED: PT OWN MED DRAWER 7, Y5N ONE (19:22)
[2018-10-15] MEDS: ATORVASTATIN CA 40 MG TABLET (FP) PO SCH (21:41)
[2018-10-15] MEDS ORDERED: SODIUM CHLORIDE 250 ML IV PRN (22:52)
[2018-10-16] MEDS: LEVOTHYROXINE NA 25 MCG TABLET (FP) PO SCH (06:03)
--- NOTE | 2018-10-16 08:39 | PN ---
Progress Note (short form) - Note Progress Note: Hospitalist to document today. Getting regular dialysis treatment now. HR appears more regular; will check monitor. Patient will still need to be studied as EF was further decreased to 20% when Echo repeated at [facility] 2 weeks ago.
[2018-10-16 08:43] LABS: BASO % 1.8 % (0-2.0); EOS % 4.8 % (0-4.5); HEMATOCRIT 30.6 % (32.4-45.2); HEMOGLOBIN 10.3 GM/dL (10.7-15.3); LYMPH % 23.4 % (8-40); MCH 33.6 pg (25.7-33.7); MCHC 33.6 g/dl (32.0-36.0); MEAN CELL VOLUME 100.2 fl (80-96); MONO % 5.8 % (3.8-10.2); NEUT % 64.2 % (42.8-82.8); PLATELET COUNT 153 K/MM3 (134-434); RBC 3.05 M/mm3 (3.60-5.2); RDW 14.3 % (11.6-15.6); WHITE BLOOD COUNT 4.4 K/mm3 (4.0-10.0)
[2018-10-16 10:44] LABS: ANION GAP 7 MMOL/L (8-16); BLOOD UREA NITROGEN 11 mg/dL (7-18); CALCIUM 8.3 mg/dL (8.5-10.1); CHLORIDE 107 mmol/L (98-107); CO2 31 mmol/L (21-32); CREATININE 1.3 mg/dL (0.55-1.3); GLUCOSE,RANDOM 189 mg/dL (74-106); PHOSPHOROUS 1.3 mg/dL (2.5-4.9); SODIUM 144 mmol/L (136-145)
--- NOTE | 2018-10-16 11:02 | PN ---
Progress Note, Physician History of Present Illness: Back in SR, denies chest pain, dyspnea. - Current Medication List Current Medications: Active Medications Allopurinol (Zyloprim -) 100 mg PO BID [facility] Last Admin: 10/15/18 21:41 Dose: 100 mg Apixaban (Eliquis -) 2.5 mg PO BID [facility] Last Admin: 10/15/18 21:41 Dose: 2.5 mg Atorvastatin Calcium (Lipitor -) 40 mg PO HS [facility] Last Admin: 10/15/18 21:41 Dose: 40 mg Cholecalciferol (Vitamin D3 -) 1,000 unit PO DAILY [facility] Last Admin: 10/15/18 09:43 Dose: 1,000 unit Hydralazine HCl (Apresoline -) 25 mg PO BID [facility] Last Admin: 10/15/18 21:41 Dose: 25 mg Sodium Chloride (Normal Saline -) 250 mls @ 3,000 mls/hr IV PRN PRN PRN Reason: Hypotension during Dialysis Stop: 10/16/18 22:52 Isosorbide Mononitrate (Imdur -) 30 mg PO DAILY [facility] Last Admin: 10/15/18 09:43 Dose: 30 mg Levothyroxine Sodium (Synthroid -) 25 mcg PO DAILY@0700 [facility] Last Admin: 10/16/18 06:03 Dose: 25 mcg Metoprolol Succinate (Toprol Xl -) 100 mg PO HS [facility] Last Admin: 10/15/18 21:41 Dose: 100 mg Metoprolol Tartrate (Lopressor Injection -) 5 mg IVPUSH Q6H PRN PRN Reason: HYPERTENSION Last Admin: 10/15/18 17:49 Dose: 5 mg Multivitamins/Minerals/Vitamin C (Tab-A-Vit -) 1 tab PO DAILY [facility] Last Admin: 10/15/18 09:43 Dose: 1 tab Torsemide (Demadex -) 80 mg PO DAILY [facility] Last Admin: 10/15/18 09:43 Dose: 80 mg - Objective Vital Signs: Vital Signs Temperature 98.2 F 10/16/18 06:50 Pulse Rate 65 10/16/18 08:30 Respiratory Rate 18 10/16/18 08:30 Blood Pressure 130/60 10/16/18 08:30 O2 Sat by Pulse Oximetry (%) 94 L 10/15/18 21:00 Constitutional: Yes: No Distress, Calm, Thin Neck: Yes: Supple Cardiovascular: Yes: Regular Rate and Rhythm Respiratory: Yes: Regular, Diminished Gastrointestinal: Yes: Normal Bowel Sounds, Soft Edema: No Labs: CBC, BMP 10/16/18 08:00 10/16/18 09:00 INR, PTT INR 1.18 (0.83-1.09) H 10/14/18 21:08 - ....Imaging Chest X-ray: Report Reviewed (Improved CHF) Problem List - Problems (1) Acute on chronic systolic and diastolic heart failure, NYHA class 3 Code(s): I50.43 - ACUTE ON CHRONIC COMBINED SYSTOLIC AND DIASTOLIC HRT FAIL (2) Anemia Code(s): D64.9 - ANEMIA, UNSPECIFIED Qualifiers: Anemia type: due to chronic kidney disease Chronic kidney disease stage: on chronic dialysis Qualified Code(s): N18.6 - End stage renal disease; D63.1 - Anemia in chronic kidney disease; Z99.2 - Dependence on renal dialysis (3) Aortic stenosis, moderate Code(s): I35.0 - NONRHEUMATIC AORTIC (VALVE) STENOSIS (4) CHF (congestive heart failure) Code(s): I50.9 - HEART FAILURE, UNSPECIFIED Qualifiers: Heart failure type: combined systolic and diastolic Heart failure chronicity: chronic Qualified Code(s): I50.42 - Chronic combined systolic ( congestive) and diastolic (congestive) heart failure (5) ESRD (end stage renal disease) on dialysis Code(s): N18.6 - END STAGE RENAL DISEASE; Z99.2 - DEPENDENCE ON RENAL DIALYSIS (6) HLD (hyperlipidemia) Code(s): E78.5 - HYPERLIPIDEMIA, UNSPECIFIED Qualifiers: Hyperlipidemia type: pure hypercholesterolemia Qualified Code(s): E78.00 - Pure hypercholesterolemia, unspecified; E78.0 - Pure hypercholesterolemia (7) HTN (hypertension) Code(s): I10 - ESSENTIAL (PRIMARY) HYPERTENSION Qualifiers: Hypertension type: renovascular hypertension Qualified Code(s): I15.0 - Renovascular hypertension (8) Paroxysmal atrial fibrillation with rapid ventricular response Code(s): I48.0 - PAROXYSMAL ATRIAL FIBRILLATION (9) Pleural effusion Code(s): J90 - PLEURAL EFFUSION, NOT ELSEWHERE CLASSIFIED Assessment/Plan Lexiscan MPI: 04/03/2018 Myopathic myocardium with diffuse moderate global HK LVEF 41% Lexiscan MPI: 05/10/2016 Small mild anterior and inferior ischemia, LVEF 65% Echo: 02/15/2018 Moderately decreased LV fxn, mild LAE, mild-mod MR, mod TR RVSP 30-40 mmHg, mild-mod AR and small pericardial effusion Echo: 06/25/2015 conc LVH, with normal LV systolic function mod LOUISE 1.1 cm^2 , mild TR, MR, AR 1. Paroxysmal AF with RVR -> NSR [id number] score of 6 on DOAC (Eliquis) 2. ESRD on HD 3. Acute on chronic diastolic/systolic failure with pleural effusion improving 4. HTN/HCVD 5. Hypercholesterolemia 6. Type 2 DM 7. CAD s/p PCI/BMS, demand ischemia 8. Anemia due CKD 9. Breast CA s/p mastectomy PLAN: 1. Continue Metoprolol ER 100 mg AM and 50 mg PM 2. May give IV Lopressor for further rate control 3. Change Hydralazine 25 bid and Imdur 30 qd to Entresto as hyperkalemia has not been an issue, continue Lipitor 40 qd 4. Continue Demadex 80 qd 5. HD as per Renal 6. Continue Eliquis 2.5 mg BID 7. Prior recommendation was to pursue right and left heart cath at some point in the near future when she is clinically stable, f/u most recent echo from [facility] LVEF reportedly 20% 2 weeks ago 8. Monitor renal function and electrolytes, replete K
[2018-10-16 11:11] LABS: POTASSIUM 2.9 mmol/L (3.5-5.1)
[2018-10-16] MEDS ORDERED: hydrALAZINE HCL 25 MG TABLET (FP) PO SCH (11:26)
[2018-10-16] MEDS: MULTIVITAMINS (DAILY MVI) TABLET (FP) PO SCH (11:36)
[2018-10-16] MEDS: ISOSORBIDE MONONITRATE 30 MG TAB.SR.24H (FP) PO SCH (11:36)
[2018-10-16] MEDS: ALLOPURINOL 100 MG TABLET (FP) PO SCH ×2 (11:36→21:35)
[2018-10-16] MEDS: TORSEMIDE 20 MG TABLET (FP) PO SCH (11:37)
[2018-10-16] MEDS: CHOLECALCIFEROL (VITAMIN D3) 1,000 UNIT TABLET (FP) PO SCH (11:37)
[2018-10-16] MEDS: APIXABAN 2.5 MG TABLET PO SCH ×2 (11:37→21:36)
[2018-10-16] MEDS: hydrALAZINE HCL 25 MG TABLET (FP) PO SCH (11:45)
[2018-10-16] MEDS ORDERED: POTASSIUM CHLORIDE ORAL LIQUID 20 MEQ/15 ML PO ONE (12:50)
--- NOTE | 2018-10-16 13:09 | PN ---
Physical Exam: SUBJECTIVE: Patient seen and examined; getting HD; no complaints; OBJECTIVE: Vital Signs Period Temp Pulse Resp BP Sys/Dan Pulse Ox Last 24 Hr 97.5 F-98.3 F 60-140 18-20 83-140/39-82 94-98 GENERAL: The patient is awake, alert, and fully oriented, in no acute distress. NECK: Trachea midline, full range of motion, supple. LUNGS: Breath sounds equal, clear to auscultation bilaterally, no wheezes, no crackles, no accessory muscle use. HEART: Regular rate and rhythm, S1, S2 without murmur, rub or gallop. ABDOMEN: Soft, nontender, nondistended, normoactive bowel sounds, no guarding, no rebound, no hepatosplenomegaly, no masses. EXTREMITIES: 2+ pulses, warm, well-perfused, no edema. NEUROLOGICAL: Cranial nerves II through XII grossly intact. Normal speech, gait not observed. SKIN: Warm, dry, normal turgor, no rashes or lesions noted Laboratory Results - last 24 hr 10/16/18 10/16/18 10/16/18 08:00 09:00 09:00 WBC 4.4 RBC 3.05 L Hgb 10.3 L Hct 30.6 L MCV 100.2 H MCH 33.6 MCHC 33.6 RDW 14.3 Plt Count 153 MPV 10.0 Absolute Neuts (auto) 2.8 Neutrophils % 64.2 Lymphocytes % 23.4 Monocytes % 5.8 Eosinophils % 4.8 H Basophils % 1.8 Nucleated RBC % 0 Sodium 144 Potassium 2.9 L* Chloride 107 Carbon Dioxide 31 Anion Gap 7 L BUN 11 Creatinine 1.3 Creat Clearance w eGFR 38.75 Random Glucose 189 H Calcium 8.3 L Phosphorus 1.3 L Magnesium 2.0 Ferritin 630.5 H Vitamin B12 610 Serum Folate 17 Active Medications Generic Name Dose Route Start Last Admin Trade Name Freq PRN Reason Stop Dose Admin Allopurinol 100 mg 10/15/18 10:10/16/18 11:36 Zyloprim - PO 100 mg BID ELHAM Administration Apixaban 2.5 mg 10/15/18 10:00 10/16/18 11:37 Eliquis - PO 2.5 mg BID ELHAM Administration Atorvastatin Calcium 40 mg 10/15/18 22:00 10/15/18 21:41 Lipitor - PO 40 mg HS ELHAM Administration Cholecalciferol 1,000 unit 10/15/18 10:00 10/16/18 11:37 Vitamin D3 - PO 1,000 unit DAILY ELHAM Administration Sodium Chloride 250 mls @ 3,000 mls/hr 10/15/18 22:52 Normal Saline - IV 10/16/18 22:52 PRN PRN Hypotension during Dialysis Levothyroxine Sodium 25 mcg 10/15/18 07:00 10/16/18 06:03 Synthroid - PO 25 mcg DAILY@0700 ELHMA Administration Metoprolol Succinate 100 mg 10/15/18 22:00 10/15/18 21:41 Toprol Xl - PO 100 mg HS ELHAM Administration Metoprolol Tartrate 5 mg 10/15/18 17:44 10/15/18 17:49 Lopressor Injection - IVPUSH 5 mg Q6H PRN Administration HYPERTENSION Multivitamins/Minerals/Vitamin C 1 tab 10/15/18 10:00 10/16/18 11:36 Tab-A-Vit - PO 1 tab DAILY [facility]HAM Administration Sacubitril/Valsartan 1 tab 10/16/18 22:00 Entresto 24 Mg-26 Mg Tablet PO BID ELHAM Torsemide 80 mg 10/15/18 10:00 10/16/18 11:37 Demadex - PO 80 mg DAILY ELHAM Administration ASSESSMENT/PLAN: This is a 88 year old female with a history of CAD s/p stent placement in 1996, DM, HTN, HLD, systolic CHF who presents after being in atrial fibrillation with rvr during dialysis. #rapid atrial fibrillation with RVR -control with metoprolol er; up titrate as tolerated -lopressor prn -eliquis 2.5mg bid for AC -phylicia cardio recs #systolic/diastolic chf -monitor I/O; wt -torsemide -started on entresto -10/03/2018 Echo @ [facility]: Severely decreased LVEF 20%, dilated LV, normal RV size and fxn, mild MR, AE, small pericardial effusion, ANNE #CAD: -BB ; started on entresto today -plan last admission cardiac cath as outpatient #HTN: -hydralyzine and imdur changed to entresto today #macrocytic anemia -anemia can be from chronic ckd; possible vit def - b12, folate wnl ; -iron stores -hemoglobin >11; no need for epogen at this time #HLD-statin #DM:not on home meds; diet controlled as per chart- -with hyperglycemia this am -insulin ss; bgm #ESRD -HD -renal following #hx breast Ca; s/p mastectomy #gout hx; controlled -on allopurinol Fluids: restrict to 1.2 L per day Diabetic diet Dvt ppl; heparin Disposition: tele Visit type - Emergency Visit Emergency Visit: Yes ED Registration Date: 10/15/18 Care time: The patient presented to the Emergency Department on the above date and was hospitalized for further evaluation of their emergent condition. - New Patient This patient is new to me today: No - Critical Care Critical Care patient: No
--- NOTE | 2018-10-16 14:32 | PN ---
Teaching Attending Note Name of Resident: Aleksandra Kam ATTENDING PHYSICIAN STATEMENT I saw and evaluated the patient. I reviewed the resident's note and discussed the case with the resident. I agree with the resident's findings and plan as documented with exceptions below. SUBJECTIVE: Patient seen and examined. Just had dialysis, feels cold, that happens occasional after HD per her. Denies any dyspnea, chest pain, palpitations, or complaints otherwise. OBJECTIVE: Vital Signs Period Temp Pulse Resp BP Sys/Dan Pulse Ox Last 24 Hr 97.5 F-98.3 F 60-140 18-22 83-140/39-82 94-98 Intake & Output 10/13/18 10/14/18 10/15/18 10/16/18 23:59 23:59 23:59 23:59 Intake Total 360 300 Output Total 200 Balance 360 100 Weight 145 lb 145 lb 144 lb 2 oz General: lying in bed in no acute distress Chest: decreased air entry, no rales or wheezing Abdomen:Soft, NT, ND Extremities: no edema, Left arm AV fistula noted Home Medications Medication Instructions Recorded Allopurinol [Zyloprim -] 100 mg PO BID 03/19/14 Atorvastatin Ca [Lipitor] 40 mg PO HS 03/19/14 Cholecalciferol (Vitamin D3) 1,000 unit PO DAILY 03/19/14 [Vitamin D3] Metoprolol Succinate [Toprol XL -] 100 mg PO HS 03/19/14 Multivitamins [Multivit ([facility] 1 tab PO DAILY 03/19/14 Formulary)] Guar Gum [Benefiber] 1 each PO BID #0 packet 05/21/14 Levothyroxine [Synthroid -] 25 mcg PO DAILY 02/13/18 Isosorbide Mononitrate [Imdur -] 30 mg PO DAILY #30 tab.sr.24h 04/19/18 hydrALAZINE HCL [Apresoline -] 25 mg PO BID #30 tablet 04/19/18 Apixaban [Eliquis] 2.5 mg PO BID #60 tablet 10/02/18 Torsemide [Demadex -] 80 mg PO DAILY #30 tablet 10/02/18 Active Medications Allopurinol (Zyloprim -) 100 mg PO BID [facility] Last Admin: 10/16/18 11:36 Dose: 100 mg Apixaban (Eliquis -) 2.5 mg PO BID [facility] Last Admin: 10/16/18 11:37 Dose: 2.5 mg Atorvastatin Calcium (Lipitor -) 40 mg PO HS [facility] Last Admin: 10/15/18 21:41 Dose: 40 mg Cholecalciferol (Vitamin D3 -) 1,000 unit PO DAILY [facility] Last Admin: 10/16/18 11:37 Dose: 1,000 unit Sodium Chloride (Normal Saline -) 250 mls @ 3,000 mls/hr IV PRN PRN PRN Reason: Hypotension during Dialysis Stop: 10/16/18 22:52 Insulin Aspart (Novolog Vial Sliding Scale -) 1 vial SQ ACHS [facility]; Protocol Levothyroxine Sodium (Synthroid -) 25 mcg PO DAILY@0700 [facility] Last Admin: 10/16/18 06:03 Dose: 25 mcg Metoprolol Succinate (Toprol Xl -) 100 mg PO HS [facility] Last Admin: 10/15/18 21:41 Dose: 100 mg Metoprolol Tartrate (Lopressor Injection -) 5 mg IVPUSH Q6H PRN PRN Reason: HYPERTENSION Last Admin: 10/15/18 17:49 Dose: 5 mg Multivitamins/Minerals/Vitamin C (Tab-A-Vit -) 1 tab PO DAILY [facility] Last Admin: 10/16/18 11:36 Dose: 1 tab Sacubitril/Valsartan (Entresto 24 Mg-26 Mg Tablet) 1 tab PO BID [facility] Torsemide (Demadex -) 80 mg PO DAILY [facility] Last Admin: 10/16/18 11:37 Dose: 80 mg Laboratory Results - last 24 hr 10/16/18 10/16/18 10/16/18 08:00 09:00 09:00 WBC 4.4 RBC 3.05 L Hgb 10.3 L Hct 30.6 L MCV 100.2 H MCH 33.6 MCHC 33.6 RDW 14.3 Plt Count 153 MPV 10.0 Absolute Neuts (auto) 2.8 Neutrophils % 64.2 Lymphocytes % 23.4 Monocytes % 5.8 Eosinophils % 4.8 H Basophils % 1.8 Nucleated RBC % 0 Sodium 144 Potassium 2.9 L* Chloride 107 Carbon Dioxide 31 Anion Gap 7 L BUN 11 Creatinine 1.3 Creat Clearance w eGFR 38.75 Random Glucose 189 H Calcium 8.3 L Phosphorus 1.3 L Magnesium 2.0 Ferritin 630.5 H Vitamin B12 610 Serum Folate 17 2D Echo from 09/2018 results reviewed Telemetry: Afib rate controlled ASSESSMENT AND PLAN: 88 yof with PMHx of Afib(Eliquis), ESRD(MWF), CAD( s/p stents 22+ years ago), HLD, HTN, NIDDM and sCHF, last EF 20% in 09/2018, sent from outpatient HD with afib with RVr. -Afib with RVR -Elevated troponin, suspect demand NSTEMI type II from above +/- decreased clearance from renal dysfunction -ESRD on HD -Chronic systolic heart failure -HTN -HLD -NIDDM Plan: HR controlled, Currently on metoprolol 100 mg hs, given soft BP and stable HR, continue for now. Discuss with cardiology about metoprolol dose on d.c Continue eliquis. lasix/entresto per renal/cardiology. HD per renal. TSH WNL. Continue levothyroxine. ISS, diabetic diet. K/phos repletion per renal with HD [id number] apixaban as above PT eval Dispo d/c back to rehab in 24 hours if no further events Plan discussed with patient and CM, all questions answered.
[2018-10-16] MEDS ORDERED: INSULIN SLIDING SCALE (NOVOLOG) 1 VIAL SQ SCH (16:30)
[2018-10-16] MEDS: INSULIN SLIDING SCALE (NOVOLOG) 1 VIAL SQ SCH ×2 (17:10→21:41)
[2018-10-16] MEDS ORDERED: PT OWN MED DRAWER 7, Y5N ONE ×2 (19:33→21:12)
[2018-10-16] MEDS: SACUBITRIL/VALSARTAN 24 MG-26 MG TABLET PO SCH (21:36)
[2018-10-16] MEDS: ATORVASTATIN CA 40 MG TABLET (FP) PO SCH (21:36)
[2018-10-17 04:13] LABS: SERUM IRON SATURATION 25 % (15-55); TOTAL IRON BINDING CAPACITY 225 ug/dL (250-450); UIBC 168 ug/dL (118-369)
[2018-10-17] MEDS: INSULIN SLIDING SCALE (NOVOLOG) 1 VIAL SQ SCH (06:14)
[2018-10-17] MEDS: LEVOTHYROXINE NA 25 MCG TABLET (FP) PO SCH (06:15)
[2018-10-17] MEDS ORDERED: PT OWN MED DRAWER 7, Y5N ONE ×3 (09:01→21:31)
--- NOTE | 2018-10-17 09:27 | PN ---
Progress Note, Physician History of Present Illness: Remains in SR, denies chest pain, dyspnea. - Current Medication List Current Medications: Active Medications Allopurinol (Zyloprim -) 100 mg PO BID [facility] Last Admin: 10/16/18 21:35 Dose: 100 mg Apixaban (Eliquis -) 2.5 mg PO BID [facility] Last Admin: 10/16/18 21:36 Dose: 2.5 mg Atorvastatin Calcium (Lipitor -) 40 mg PO HS [facility] Last Admin: 10/16/18 21:36 Dose: 40 mg Cholecalciferol (Vitamin D3 -) 1,000 unit PO DAILY [facility] Last Admin: 10/16/18 11:37 Dose: 1,000 unit Sodium Chloride (Normal Saline -) 250 mls @ 3,000 mls/hr IV PRN PRN PRN Reason: Hypotension during Dialysis Stop: 10/16/18 22:52 Insulin Aspart (Novolog Vial Sliding Scale -) 1 vial SQ ACHS [facility]; Protocol Last Admin: 10/17/18 06:14 Dose: Not Given Levothyroxine Sodium (Synthroid -) 25 mcg PO DAILY@0700 [facility] Last Admin: 10/17/18 06:15 Dose: 25 mcg Metoprolol Succinate (Toprol Xl -) 100 mg PO HS [facility] Last Admin: 10/16/18 21:36 Dose: 100 mg Metoprolol Tartrate (Lopressor Injection -) 5 mg IVPUSH Q6H PRN PRN Reason: HYPERTENSION Last Admin: 10/15/18 17:49 Dose: 5 mg Multivitamins/Minerals/Vitamin C (Tab-A-Vit -) 1 tab PO DAILY [facility] Last Admin: 10/16/18 11:36 Dose: 1 tab Sacubitril/Valsartan (Entresto 24 Mg-26 Mg Tablet) 1 tab PO BID [facility] Last Admin: 10/16/18 21:36 Dose: 1 tab Torsemide (Demadex -) 80 mg PO DAILY [facility] Last Admin: 10/16/18 11:37 Dose: 80 mg - Objective Vital Signs: Vital Signs Temperature 98.3 F 10/17/18 06:00 Pulse Rate 64 10/17/18 06:00 Respiratory Rate 18 10/17/18 06:00 Blood Pressure 121/61 10/17/18 06:00 O2 Sat by Pulse Oximetry (%) 95 10/16/18 21:00 Constitutional: Yes: No Distress, Calm Neck: Yes: Supple Cardiovascular: Yes: Regular Rate and Rhythm Respiratory: Yes: Regular, CTA Bilaterally Gastrointestinal: Yes: Normal Bowel Sounds, Soft Edema: No Labs: CBC, BMP 10/16/18 08:00 10/16/18 09:00 INR, PTT INR 1.18 (0.83-1.09) H 10/14/18 21:08 - ....Imaging EKG: Report Reviewed (Tele: NSR) Problem List - Problems (1) Acute on chronic systolic and diastolic heart failure, NYHA class 3 Code(s): I50.43 - ACUTE ON CHRONIC COMBINED SYSTOLIC AND DIASTOLIC HRT FAIL (2) Anemia Code(s): D64.9 - ANEMIA, UNSPECIFIED Qualifiers: Anemia type: due to chronic kidney disease Chronic kidney disease stage: on chronic dialysis Qualified Code(s): N18.6 - End stage renal disease; D63.1 - Anemia in chronic kidney disease; Z99.2 - Dependence on renal dialysis (3) CHF (congestive heart failure) Code(s): I50.9 - HEART FAILURE, UNSPECIFIED Qualifiers: Heart failure type: combined systolic and diastolic Heart failure chronicity: chronic Qualified Code(s): I50.42 - Chronic combined systolic ( congestive) and diastolic (congestive) heart failure (4) ESRD (end stage renal disease) on dialysis Code(s): N18.6 - END STAGE RENAL DISEASE; Z99.2 - DEPENDENCE ON RENAL DIALYSIS (5) HLD (hyperlipidemia) Code(s): E78.5 - HYPERLIPIDEMIA, UNSPECIFIED Qualifiers: Hyperlipidemia type: pure hypercholesterolemia Qualified Code(s): E78.00 - Pure hypercholesterolemia, unspecified; E78.0 - Pure hypercholesterolemia (6) HTN (hypertension) Code(s): I10 - ESSENTIAL (PRIMARY) HYPERTENSION Qualifiers: Hypertension type: renovascular hypertension Qualified Code(s): I15.0 - Renovascular hypertension (7) Paroxysmal atrial fibrillation with rapid ventricular response Code(s): I48.0 - PAROXYSMAL ATRIAL FIBRILLATION (8) Pleural effusion Code(s): J90 - PLEURAL EFFUSION, NOT ELSEWHERE CLASSIFIED Assessment/Plan Lexiscan MPI: 04/03/2018 Myopathic myocardium with diffuse moderate global HK LVEF 41% Lexiscan MPI: 05/10/2016 Small mild anterior and inferior ischemia, LVEF 65% 10/03/2018 Echo @ [facility]: Severely decreased LVEF 20%, dilated LV, normal RV size and fxn, mild MR, AE, small pericardial effusion, ANNE Echo: 02/15/2018 Moderately decreased LV fxn, mild LAE, mild-mod MR, mod TR RVSP 30-40 mmHg, mild-mod AR and small pericardial effusion Echo: 06/25/2015 conc LVH, with normal LV systolic function mod LOUISE 1.1 cm^2 , mild TR, MR, AR 1. Paroxysmal AF with RVR -> NSR [id number] score of 6 on DOAC (Eliquis) 2. ESRD on HD 3. Acute on chronic diastolic/systolic failure with pleural effusion improving 4. HTN/HCVD 5. Hypercholesterolemia 6. Type 2 DM 7. CAD s/p PCI/BMS, demand ischemia 8. Anemia due CKD 9. Breast CA s/p mastectomy PLAN: 1. Continue Metoprolol ER 100 mg AM with uptitration as hemodynamics tolerate 2. May give IV Lopressor for further rate control 3. Continue Entresto 24/26 bid as hyperkalemia has not been an issue, continue Lipitor 40 qd 4. Continue Demadex 80 qd 5. HD as per Renal 6. Continue Eliquis 2.5 mg BID 7. Prior recommendation was to pursue right and left heart cath at some point in the near future when she is clinically stable for evaluation of cardiomyopathy 8. Monitor renal function and electrolytes, replete K 9. D/c planning to SNF
[2018-10-17 09:36] LABS: BASO % 1.1 % (0-2.0); EOS % 3.7 % (0-4.5); HEMATOCRIT 40.9 % (32.4-45.2); HEMOGLOBIN 13.5 GM/dL (10.7-15.3); LYMPH % 20.5 % (8-40); MEAN CELL VOLUME 103.1 fl (80-96); MEAN PLT VOLUME 10.1 fl (7.5-11.1); MONO % 8.1 % (3.8-10.2); NEUT % 66.6 % (42.8-82.8); PLATELET COUNT 171 K/MM3 (134-434); RBC 3.96 M/mm3 (3.60-5.2); WHITE BLOOD COUNT 7.2 K/mm3 (4.0-10.0)
[2018-10-17] MEDS: MULTIVITAMINS (DAILY MVI) TABLET (FP) PO SCH (09:53)
[2018-10-17] MEDS: APIXABAN 2.5 MG TABLET PO SCH ×2 (09:53→21:39)
[2018-10-17] MEDS: CHOLECALCIFEROL (VITAMIN D3) 1,000 UNIT TABLET (FP) PO SCH (09:54)
[2018-10-17] MEDS: SACUBITRIL/VALSARTAN 24 MG-26 MG TABLET PO SCH ×2 (09:54→21:39)
[2018-10-17] MEDS: TORSEMIDE 20 MG TABLET (FP) PO SCH (09:54)
[2018-10-17] MEDS: ALLOPURINOL 100 MG TABLET (FP) PO SCH ×2 (09:55→21:38)
--- NOTE | 2018-10-17 11:11 | PN ---
Teaching Attending Note Name of Resident: Aleksandra Kam ATTENDING PHYSICIAN STATEMENT I saw and evaluated the patient. I reviewed the resident's note and discussed the case with the resident. I agree with the resident's findings and plan as documented with exceptions below. SUBJECTIVE: patient seen and examined. No complaints. OBJECTIVE: Vital Signs Period Temp Pulse Resp BP Sys/Dan Pulse Ox Last 24 Hr 97.4 F-98.4 F 63-71 18-22 93-121/36-65 95-95 Intake & Output 10/14/18 10/15/18 10/16/18 10/17/18 23:59 23:59 23:59 23:59 Intake Total 360 420 240 Output Total 350 Balance 360 70 240 Weight 145 lb 145 lb 144 lb 2 oz 142 lb 2 oz General: sitting in chair in no acute distress Chest: CTAB, no rales or wheezing CVS:S1S2 irregular Abdomen:soft, NT, ND Telemetry: in sinus rhythm currently, no tachycardia events overnight Home Medications Medication Instructions Recorded Allopurinol [Zyloprim -] 100 mg PO BID 03/19/14 Atorvastatin Ca [Lipitor] 40 mg PO HS 03/19/14 Cholecalciferol (Vitamin D3) 1,000 unit PO DAILY 03/19/14 [Vitamin D3] Metoprolol Succinate [Toprol XL -] 100 mg PO HS 03/19/14 Multivitamins [Multivit ([facility] 1 tab PO DAILY 03/19/14 Formulary)] Guar Gum [Benefiber] 1 each PO BID #0 packet 05/21/14 Levothyroxine [Synthroid -] 25 mcg PO DAILY 02/13/18 Apixaban [Eliquis] 2.5 mg PO BID #60 tablet 10/02/18 Torsemide [Demadex -] 80 mg PO DAILY #30 tablet 10/02/18 Sacubitril/Valsartan [Entresto 24 1 tab PO BID tablet 10/17/18 mg-26 mg Tablet] Laboratory Results - last 24 hr 10/16/18 10/16/18 10/16/18 09:00 09:00 17:04 WBC RBC Hgb Hct MCV MCH MCHC RDW Plt Count MPV Absolute Neuts (auto) Neutrophils % Lymphocytes % Monocytes % Eosinophils % Basophils % Nucleated RBC % Potassium 2.9 L* POC Glucometer 106 Iron 57 TIBC 225 L Iron Saturation 25 10/16/18 10/17/18 10/17/18 21:31 06:11 09:00 WBC 7.2 RBC 3.96 Hgb 13.5 Hct 40.9 D MCV 103.1 H MCH 34.0 H MCHC 33.0 RDW 15.0 Plt Count 171 MPV 10.1 Absolute Neuts (auto) 4.8 Neutrophils % 66.6 Lymphocytes % 20.5 Monocytes % 8.1 Eosinophils % 3.7 Basophils % 1.1 Nucleated RBC % 0 Potassium POC Glucometer 194 118 Iron TIBC Iron Saturation ASSESSMENT AND PLAN: 88 yof with PMHx of Afib(Eliquis), ESRD(MWF), CAD( s/p stents 22+ years ago), HLD, HTN, NIDDM and sCHF, last EF 20% in 09/2018, sent from outpatient HD with afib with RVr. -Afib with RVR -Elevated troponin, suspect demand NSTEMI type II from above +/- decreased clearance from renal dysfunction -ESRD on HD -Chronic systolic heart failure -HTN -HLD -NIDDM Plan: Currently in NSR, HR controlled. COntinue metoprolol 100 mg Hs. Cardiology input noted. Hydralazine/imdur d/amadou. On Entresto, tolerating well. HD per renal. D/c back to rehab today with outpatient cardiology and PCP follow up. Plan discussed with patient and nursing in detail, all questions answered.
[2018-10-17 12:07] LABS: BLOOD UREA NITROGEN 22 mg/dL (7-18); CREATININE 2.7 mg/dL (0.55-1.3); GLUCOSE,RANDOM 92 mg/dL (74-106)
[2018-10-17 12:08] LABS: ANION GAP 9 MMOL/L (8-16); CALCIUM 8.7 mg/dL (8.5-10.1); CHLORIDE 106 mmol/L (98-107); CO2 26 mmol/L (21-32); MAGNESIUM 1.7 mg/dL (1.8-2.4); PHOSPHOROUS 2.8 mg/dL (2.5-4.9); POTASSIUM 4.2 mmol/L (3.5-5.1); SODIUM 141 mmol/L (136-145)
--- NOTE | 2018-10-17 14:34 | PN ---
Progress Note (short form) - Note Progress Note: Renal follow up for ESRD on HD Pt seen and examined at the bedside feels well, denies any dizziness, chest pain or palpitations s/p dialysis yesterday Vital Signs Temperature 97.4 F L 10/17/18 14:00 Pulse Rate 71 10/17/18 14:00 Respiratory Rate 17 10/17/18 14:00 Blood Pressure 102/50 L 10/17/18 14:00 O2 Sat by Pulse Oximetry (%) 95 10/17/18 09:00 Intake & Output 10/14/18 10/15/18 10/16/18 10/17/18 23:59 23:59 23:59 23:59 Intake Total 360 420 240 Output Total 350 Balance 360 70 240 Weight 65.771 kg 65.771 kg 65.374 kg 64.467 kg NAD No LE edema CBC, BMP 10/17/18 09:00 10/17/18 09:00 Current Medications Allopurinol (Zyloprim -) 100 mg PO BID [facility] Last Admin: 10/17/18 09:55 Dose: 100 mg Apixaban (Eliquis -) 2.5 mg PO BID [facility] Last Admin: 10/17/18 09:53 Dose: 2.5 mg Atorvastatin Calcium (Lipitor -) 40 mg PO HS [facility] Last Admin: 10/16/18 21:36 Dose: 40 mg Cholecalciferol (Vitamin D3 -) 1,000 unit PO DAILY [facility] Last Admin: 10/17/18 09:54 Dose: 1,000 unit Sodium Chloride (Normal Saline -) 250 mls @ 3,000 mls/hr IV PRN PRN PRN Reason: Hypotension during Dialysis Stop: 10/16/18 22:52 Levothyroxine Sodium (Synthroid -) 25 mcg PO DAILY@0700 [facility] Last Admin: 10/17/18 06:15 Dose: 25 mcg Metoprolol Succinate (Toprol Xl -) 100 mg PO HS [facility] Last Admin: 10/16/18 21:36 Dose: 100 mg Multivitamins/Minerals/Vitamin C (Tab-A-Vit -) 1 tab PO DAILY [facility] Last Admin: 10/17/18 09:53 Dose: 1 tab Sacubitril/Valsartan (Entresto 24 Mg-26 Mg Tablet) 1 tab PO BID [facility] Last Admin: 10/17/18 09:54 Dose: 1 tab Torsemide (Demadex -) 80 mg PO DAILY [facility] Last Admin: 10/17/18 09:54 Dose: 80 mg 88 year old woman with hx of ESRD on HD, P-Afib on eliquis, systolic HF who presented from outpatient dialysis with tachycardia and found to have Afib with RVR. #ESRD on HD #Afib with RVR #Systolic HF #Hypothyrodisim s/p dialysis yesterday, no indication for further treatment today continue entresto and torsemide discharge planning as per primary Miguel Ramirez DO
--- NOTE | 2018-10-17 14:50 | DS ---
Physical Exam: SUBJECTIVE: Patient seen and examined ; no acute events; denies cp, sob, palpitations, dizziness OBJECTIVE: Vital Signs Period Temp Pulse Resp BP Sys/Dan Pulse Ox Last 24 Hr 97.4 F-98.4 F 63-71 17-20 93-121/36-61 95-95 PHYSICAL EXAM GENERAL: The patient is awake, alert, and fully oriented, in no acute distress. LUNGS: Breath sounds equal, clear to auscultation bilaterally, no wheezes, no crackles, no accessory muscle use. HEART: Regular rate and irreg rhythm, S1, S2 without murmur, rub or gallop. ABDOMEN: Soft, nontender, nondistended, normoactive bowel sounds, no guarding, no rebound, no hepatosplenomegaly, no masses. EXTREMITIES: 2+ pulses, warm, well-perfused, no edema. UE v fistula NEUROLOGICAL: Cranial nerves II through XII grossly intact. Normal speech, gait not observed. PSYCH: Normal mood, normal affect. SKIN: Warm, dry, normal turgor, no rashes or lesions noted. LABS Laboratory Results - last 24 hr 10/16/18 10/16/18 10/16/18 09:00 17:04 21:31 WBC RBC Hgb Hct MCV MCH MCHC RDW Plt Count MPV Absolute Neuts (auto) Neutrophils % Lymphocytes % Monocytes % Eosinophils % Basophils % Nucleated RBC % Sodium Potassium Chloride Carbon Dioxide Anion Gap BUN Creatinine Creat Clearance w eGFR POC Glucometer 106 194 Random Glucose Calcium Phosphorus Magnesium Iron 57 TIBC 225 L Iron Saturation 25 10/17/18 10/17/18 10/17/18 06:11 09:00 09:00 WBC 7.2 RBC 3.96 Hgb 13.5 Hct 40.9 D MCV 103.1 H MCH 34.0 H MCHC 33.0 RDW 15.0 Plt Count 171 MPV 10.1 Absolute Neuts (auto) 4.8 Neutrophils % 66.6 Lymphocytes % 20.5 Monocytes % 8.1 Eosinophils % 3.7 Basophils % 1.1 Nucleated RBC % 0 Sodium 141 Potassium 4.2 Chloride 106 Carbon Dioxide 26 Anion Gap 9 BUN 22 H Creatinine 2.7 H Creat Clearance w eGFR 16.67 POC Glucometer 118 Random Glucose 92 Calcium 8.7 Phosphorus 2.8 Magnesium 1.7 L Iron TIBC Iron Saturation HOSPITAL COURSE: Date of Admission:10/15/18 Date of Discharge: 10/17/18 This is a 88 year old female with PMHx of Afib(Eliquis), ESRD(MWF), CAD, HLD, HTN, NIDDM and sCHF, last EF 20% in 09/2018, sent from outpatient HD with afib with RVr. Continue metoprolol 100HS; HR controlled. Hydralazine/imdur d/amadou. On Entresto. Patient is to follow up with primary and outpatient cardiology , as plan for cardiac cath was discussed. Minutes to complete discharge: 40 Discharge Summary Reason For Visit: ATRIAL FIBRILLATION WITH RAPID VENTRICULAR RESPONS Condition: Stable - Instructions Diet, Activity, Other Instructions: Ms Lua, you have been treated with rate control for you history of irregular heart rhythm, atrial fibrillation. MEDICATIONS: Please be advised as some of your medications have been changed: -Continue to take metoprolol 100mg at night before bed. -Continue eliquis 2.5mg twice per day -Continue torsemide 80mg once daily -Continue allopurinol 100mg twice per day -Continue lipitor 40mg daily Stop taking hydralizine Stop taking imdur Start: New medication for heart failure, called entresto. You will continue to take this pill twice a day. FOLLOW UP; Primary care physician in 1 week Lead Welder in 1-2 days Your potassium levels will need to be monitored before dialysis while on the new medication entresto. Weigh yourself daily and notify your doctor if weight gain > 3 lbs in 2 days. Please follow up with you primary car and staple shear operator regarding these conditions with in one week. If you have any worsening of symptoms, including chest pain, shortness of breath , palpitations or any new concerns, please return to the emergency room . Referrals: Walker Padilla MD [Primary Care Provider] - Ralf Gutierrez MD [Staff Physician] - Disposition: RETIREMENT FACILITY - Home Medications Comprehensive Discharge Medication List: Ambulatory Orders Allopurinol [Zyloprim -] 100 mg PO BID 03/19/14 Atorvastatin Ca [Lipitor] 40 mg PO HS 03/19/14 Cholecalciferol (Vitamin D3) [Vitamin D3] 1,000 unit PO DAILY 03/19/14 Metoprolol Succinate [Toprol XL -] 100 mg PO HS 03/19/14 Multivitamins [Multivit ([facility] Formulary)] 1 tab PO DAILY 03/19/14 Guar Gum [Benefiber] 1 each PO BID #0 packet 05/21/14 Levothyroxine [Synthroid -] 25 mcg PO DAILY 02/13/18 Apixaban [Eliquis] 2.5 mg PO BID #60 tablet 10/02/18 Torsemide [Demadex -] 80 mg PO DAILY #30 tablet 10/02/18 Sacubitril/Valsartan [Entresto 24 mg-26 mg Tablet] 1 tab PO BID tablet This patient is new to me today: Yes Date on this admission: 10/17/18 Emergency Visit: Yes ED Registration Date: 10/15/18 Care time: The patient presented to the Emergency Department on the above date and was hospitalized for further evaluation of their emergent condition. Critical Care patient: No - Discharge Referral Referred to [facility] Med P.C.: No
[2018-10-17] MEDS: ATORVASTATIN CA 40 MG TABLET (FP) PO SCH (21:38)
[2018-10-18] MEDS: LEVOTHYROXINE NA 25 MCG TABLET (FP) PO SCH (06:05)
[2018-10-18] MEDS ORDERED: SODIUM CHLORIDE 250 ML IV PRN (07:46)
[2018-10-18] MEDS ORDERED: PT OWN MED DRAWER 7, Y5N ONE ×2 (09:09→21:05)
[2018-10-18] MEDS: ALLOPURINOL 100 MG TABLET (FP) PO SCH ×2 (09:55→21:25)
[2018-10-18] MEDS: CHOLECALCIFEROL (VITAMIN D3) 1,000 UNIT TABLET (FP) PO SCH (09:55)
[2018-10-18] MEDS: MULTIVITAMINS (DAILY MVI) TABLET (FP) PO SCH (09:55)
[2018-10-18] MEDS: APIXABAN 2.5 MG TABLET PO SCH ×2 (09:55→21:25)
[2018-10-18] MEDS: TORSEMIDE 20 MG TABLET (FP) PO SCH (09:56)
[2018-10-18] MEDS: SACUBITRIL/VALSARTAN 24 MG-26 MG TABLET PO SCH ×2 (11:03→21:26)
--- NOTE | 2018-10-18 11:15 | PN ---
Physical Exam: SUBJECTIVE: Patient seen and examined, no complaints, doing well. OBJECTIVE: Vital Signs Period Temp Pulse Resp BP Sys/Dan Pulse Ox Last 24 Hr 97.1 F-98.5 F 65-78 16-20 102-125/46-55 96 GENERAL: The patient is awake, alert, and fully oriented, in no acute distress. HEAD: Normal with no signs of trauma. EYES: PERRL, extraocular movements intact, sclera anicteric, conjunctiva clear. No ptosis. ENT: Ears normal, nares patent, oropharynx clear without exudates, moist mucous membranes. NECK: soft, supple, no JVD LUNGS: Breath sounds equal, clear to auscultation bilaterally, no wheezes, no crackles HEART: S1S2 irregular ABDOMEN: Soft, nontender, nondistended, normoactive bowel sounds, no guarding, no rebound, EXTREMITIES: 2+ pulses, warm, well-perfused, no edema. PSYCH: Normal mood, normal affect. SKIN: Warm, dry, normal turgor, no rashes or lesions noted Telemetry: sinus rhythm Laboratory Results - last 24 hr 10/17/18 10/17/18 10/17/18 09:00 17:36 21:37 Sodium 141 Potassium 4.2 Chloride 106 Carbon Dioxide 26 Anion Gap 9 BUN 22 H Creatinine 2.7 H Creat Clearance w eGFR 16.67 POC Glucometer 167 111 Random Glucose 92 Calcium 8.7 Phosphorus 2.8 Magnesium 1.7 L 10/18/18 06:04 Sodium Potassium Chloride Carbon Dioxide Anion Gap BUN Creatinine Creat Clearance w eGFR POC Glucometer 95 Random Glucose Calcium Phosphorus Magnesium Active Medications Generic Name Dose Route Start Last Admin Trade Name Amina PRN Reason Stop Dose Admin Allopurinol 100 mg 10/15/18 10:00 10/18/18 09:55 Zyloprim - PO 100 mg BID [facility] Administration Apixaban 2.5 mg 10/15/18 10:00 10/18/18 09:55 Eliquis - PO 2.5 mg BID [facility] Administration Atorvastatin Calcium 40 mg 10/15/18 22:00 10/17/18 21:38 Lipitor - PO 40 mg HS [facility] Administration Cholecalciferol 1,000 unit 10/15/18 10:00 10/18/18 09:55 Vitamin D3 - PO 1,000 unit DAILY [facility] Administration Sodium Chloride 250 mls @ 3,000 mls/hr 10/18/18 07:46 Normal Saline - IV 10/19/18 07:47 PRN PRN Hypotension during Dialysis Levothyroxine Sodium 25 mcg 10/15/18 07:00 10/18/18 06:05 Synthroid - PO 25 mcg DAILY@0700 [facility] Administration Metoprolol Succinate 100 mg 10/15/18 22:00 10/17/18 21:39 Toprol Xl - PO 100 mg HS [facility] Administration Multivitamins/Minerals/Vitamin C 1 tab 10/15/18 10:00 10/18/18 09:55 Tab-A-Vit - PO 1 tab DAILY [facility] Administration Sacubitril/Valsartan 1 tab 10/16/18 22:00 10/18/18 11:03 Entresto 24 Mg-26 Mg Tablet PO Not Given BID [facility] Torsemide 80 mg 10/15/18 10:00 10/18/18 09:56 Demadex - PO 80 mg DAILY [facility] Administration ASSESSMENT/PLAN: 88 yof with PMHx of Afib(Eliquis), ESRD(MWF), CAD( s/p stents 22+ years ago), HLD, HTN, NIDDM and sCHF, last EF 20% in 09/2018, sent from outpatient HD with afib with RVr. -Afib with RVR -Elevated troponin, suspect demand NSTEMI type II from above +/- decreased clearance from renal dysfunction -ESRD on HD -Chronic systolic heart failure -HTN -HLD -NIDDM Plan: Currently in NSR, HR controlled. COntinue metoprolol 100 mg Hs. Cardiology input noted. Hydralazine/imdur d/amadou. On Entresto, tolerating well. HD per renal. D/c awaiting insurance auth to dc back to rehab. Plan discussed with patient and nursing in detail, all questions answered. Visit type - Emergency Visit Emergency Visit: Yes ED Registration Date: 10/15/18 Care time: The patient presented to the Emergency Department on the above date and was hospitalized for further evaluation of their emergent condition. - New Patient This patient is new to me today: No - Critical Care Critical Care patient: No - Discharge Referral Referred to [facility] Med P.C.: No
--- NOTE | 2018-10-18 12:11 | PN ---
Progress Note (short form) - Note Progress Note: Renal follow up for ESRD on HD Pt seen and examined during dialysis BP is low, unable to tolerate UF no dizziness, lightlheadedness no cramping no sob, cp, abd pain Vital Signs Temperature 97.9 F 10/18/18 09:09 Pulse Rate 65 10/18/18 09:09 Respiratory Rate 16 10/18/18 09:09 Blood Pressure 113/55 L 10/18/18 09:09 O2 Sat by Pulse Oximetry (%) 96 10/17/18 21:00 NAD No LE edema CBC, BMP 10/17/18 09:00 10/17/18 09:00 Current Medications Allopurinol (Zyloprim -) 100 mg PO BID [facility] Last Admin: 10/18/18 09:55 Dose: 100 mg Apixaban (Eliquis -) 2.5 mg PO BID [facility] Last Admin: 10/18/18 09:55 Dose: 2.5 mg Atorvastatin Calcium (Lipitor -) 40 mg PO HS [facility] Last Admin: 10/17/18 21:38 Dose: 40 mg Cholecalciferol (Vitamin D3 -) 1,000 unit PO DAILY [facility] Last Admin: 10/18/18 09:55 Dose: 1,000 unit Sodium Chloride (Normal Saline -) 250 mls @ 3,000 mls/hr IV PRN PRN PRN Reason: Hypotension during Dialysis Stop: 10/19/18 07:47 Levothyroxine Sodium (Synthroid -) 25 mcg PO DAILY@0700 [facility] Last Admin: 10/18/18 06:05 Dose: 25 mcg Metoprolol Succinate (Toprol Xl -) 100 mg PO [facility] Last Admin: 10/17/18 21:39 Dose: 100 mg Multivitamins/Minerals/Vitamin C (Tab-A-Vit -) 1 tab PO DAILY [facility] Last Admin: 10/18/18 09:55 Dose: 1 tab Sacubitril/Valsartan (Entresto 24 Mg-26 Mg Tablet) 1 tab PO BID [facility] Last Admin: 10/18/18 11:03 Dose: Not Given Torsemide (Demadex -) 80 mg PO DAILY [facility] Last Admin: 10/18/18 09:56 Dose: 80 mg 88 year old woman with hx of ESRD on HD, P-Afib on eliquis, systolic HF who presented from outpatient dialysis with tachycardia and found to have Afib with RVR. #ESRD on HD #Afib with RVR #Systolic HF #Hypothyrodisim BP low, tolerating dialysis but unable to achieve UF will request that Entresto be held on the evening prior to dialysis and morning of dialysis in order to avoid hypotension BP to be monitored after dialysis and if improves can d/c to rehab Miguel Ramirez DO
--- NOTE | 2018-10-18 18:42 | PN ---
Progress Note, Physician Chief Complaint: Not in distress Being dialyzed History of Present Illness: Patient was seen and examined. Awake and alert. Chart was reviewed Denies chest pain, SOB or palpitations - Current Medication List Current Medications: Active Medications Allopurinol (Zyloprim -) 100 mg PO BID [facility] Last Admin: 10/18/18 09:55 Dose: 100 mg Apixaban (Eliquis -) 2.5 mg PO BID [facility] Last Admin: 10/18/18 09:55 Dose: 2.5 mg Atorvastatin Calcium (Lipitor -) 40 mg PO HS [facility] Last Admin: 10/17/18 21:38 Dose: 40 mg Cholecalciferol (Vitamin D3 -) 1,000 unit PO DAILY [facility] Last Admin: 10/18/18 09:55 Dose: 1,000 unit Sodium Chloride (Normal Saline -) 250 mls @ 3,000 mls/hr IV PRN PRN PRN Reason: Hypotension during Dialysis Stop: 10/19/18 07:47 Last Admin: 10/18/18 13:26 Dose: 3,000 mls/hr Levothyroxine Sodium (Synthroid -) 25 mcg PO DAILY@0700 [facility] Last Admin: 10/18/18 06:05 Dose: 25 mcg Metoprolol Succinate (Toprol Xl -) 100 mg PO HS [facility] Last Admin: 10/17/18 21:39 Dose: 100 mg Multivitamins/Minerals/Vitamin C (Tab-A-Vit -) 1 tab PO DAILY [facility] Last Admin: 10/18/18 09:55 Dose: 1 tab Sacubitril/Valsartan (Entresto 24 Mg-26 Mg Tablet) 1 tab PO BID [facility] Last Admin: 10/18/18 11:03 Dose: Not Given Torsemide (Demadex -) 80 mg PO DAILY [facility] Last Admin: 10/18/18 09:56 Dose: 80 mg - Objective Vital Signs: Vital Signs Temperature 98.2 F 10/18/18 15:08 Pulse Rate 75 10/18/18 15:08 Respiratory Rate 18 10/18/18 15:08 Blood Pressure 111/49 L 10/18/18 15:08 O2 Sat by Pulse Oximetry (%) 97 10/18/18 09:00 Neck: Yes: Supple Cardiovascular: Yes: Pulse Irregular, S1, S2 Respiratory: Yes: CTA Bilaterally Gastrointestinal: Yes: Normal Bowel Sounds, Soft. No: Tenderness Edema: No Additional Findings/Remarks: - Review of Systems Constitutional: denies: Chills, Fever Cardiovascular: reports: Palpitations. denies: Chest Pain, Shortness of Breath Respiratory: denies: Cough, Hemoptysis, Orthopnea, PND, SOB, SOB on Exertion Gastrointestinal: denies: Abdominal Pain, Constipation, Diarrhea, Melena, Nausea , Rectal Bleeding, Vomiting Genitourinary: denies: Dysuria, Hematuria Musculoskeletal: denies: Back Pain Neurological: denies: Dizziness, Headache, Seizure, Syncope Labs: CBC, BMP 10/17/18 09:00 10/17/18 09:00 Problem List - Problems (1) ISELA (acute kidney injury) Code(s): N17.9 - ACUTE KIDNEY FAILURE, UNSPECIFIED (2) AVF (arteriovenous fistula) Code(s): I77.0 - ARTERIOVENOUS FISTULA, ACQUIRED (3) Acute on chronic diastolic heart failure Code(s): I50.33 - ACUTE ON CHRONIC DIASTOLIC (CONGESTIVE) HEART FAILURE (4) Acute on chronic systolic and diastolic heart failure, NYHA class 3 Code(s): I50.43 - ACUTE ON CHRONIC COMBINED SYSTOLIC AND DIASTOLIC HRT FAIL (5) [id number] kidney injury Code(s): N17.9 - ACUTE KIDNEY FAILURE, UNSPECIFIED; N18.9 - CHRONIC KIDNEY DISEASE, UNSPECIFIED Qualifiers: Acute renal failure type: unspecified (6) Anemia Code(s): D64.9 - ANEMIA, UNSPECIFIED Qualifiers: Anemia type: due to chronic kidney disease Chronic kidney disease stage: on chronic dialysis Qualified Code(s): N18.6 - End stage renal disease; D63.1 - Anemia in chronic kidney disease; Z99.2 - Dependence on renal dialysis (7) Aortic stenosis, moderate Code(s): I35.0 - NONRHEUMATIC AORTIC (VALVE) STENOSIS (8) Demand ischemia Code(s): I24.8 - OTHER FORMS OF ACUTE ISCHEMIC HEART DISEASE (9) Diabetes mellitus Code(s): E11.9 - TYPE 2 DIABETES MELLITUS WITHOUT COMPLICATIONS Qualifiers: Diabetes mellitus type: type 2 Diabetes mellitus care home insulin use: without moth exterminator use Diabetes mellitus complication status: with kidney complications Diabetes mellitus complication detail: with chronic kidney disease Chronic kidney disease stage: stage 4 (severe) Qualified Code(s): E11.22 - Type 2 diabetes mellitus with diabetic chronic kidney disease; N18.4 - Chronic kidney disease, stage 4 (severe) (10) ESRD (end stage renal disease) on dialysis Code(s): N18.6 - END STAGE RENAL DISEASE; Z99.2 - DEPENDENCE ON RENAL DIALYSIS (11) HLD (hyperlipidemia) Code(s): E78.5 - HYPERLIPIDEMIA, UNSPECIFIED Qualifiers: Hyperlipidemia type: pure hypercholesterolemia Qualified Code(s): E78.00 - Pure hypercholesterolemia, unspecified; E78.0 - Pure hypercholesterolemia (12) HTN (hypertension) Code(s): I10 - ESSENTIAL (PRIMARY) HYPERTENSION Qualifiers: Hypertension type: renovascular hypertension Qualified Code(s): I15.0 - Renovascular hypertension (13) Hypothyroidism Code(s): E03.9 - HYPOTHYROIDISM, UNSPECIFIED Qualifiers: Hypothyroidism type: unspecified Qualified Code(s): E03.9 - Hypothyroidism , unspecified (14) Paroxysmal atrial fibrillation with rapid ventricular response Code(s): I48.0 - PAROXYSMAL ATRIAL FIBRILLATION (15) Pleural effusion Code(s): J90 - PLEURAL EFFUSION, NOT ELSEWHERE CLASSIFIED Assessment/Plan 1. AF with RVR [id number] score of 6 on DOAC (Eliquis) 2. ESRD on HD 3. Acute on chronic diastolic/systolic failure with pleural effusion 4. HTN/HCVD 5. Hypercholesterolemia 6. Type 2 DM 7. CAD s/p PCI/BMS, demand ischemia 8. Anemia due CKD 9. Breast CA s/p mastectomy PLAN: 1. Continue Metoprolol ER - uptitrate as needed 2. Hydralazine and Imdur has been substituted to Entresto, monitor electrolytes 3. Continue Demadex 4. HD as per Renal 5. Continue Eliquis 2.5 mg BID 6. Prior recommendation was to pursue right and left heart cath at some point in the near future when she is stable Further plans are to follow Cabrera Brandon MD
[2018-10-18 21:24] VITALS: BP 118/54; PULSE 74; TEMP 98.1
[2018-10-18] MEDS: ATORVASTATIN CA 40 MG TABLET (FP) PO SCH (21:25)
== END 2018-10-18 22:30 | DRG 291 ==
LOC: JER 19:17 → JERBED 23:19 → OBSVTOIN 10-15 01:06 → J4S 10-15 16:36
PROVIDERS: ADMIT Internal Medicine; ATTEND Hospitalist
PROC: 5A1D70Z Performance of Urinary Filtration, Intermittent, Less than 6 Hours Per Day (ICD-10-PCS; principal; 2018-10-16)
DX: I13.2 Hypertensive heart and chronic kidney disease with heart failure and with stage 5 chronic kidney disease, or end stage renal disease (principal); N18.6 End stage renal disease; I50.43 Acute on chronic combined systolic (congestive) and diastolic (congestive) heart failure; I24.8 Other forms of acute ischemic heart disease; J98.11 Atelectasis; I48.0 Paroxysmal atrial fibrillation; Z79.01 Long term (current) use of anticoagulants; I25.10 Atherosclerotic heart disease of native coronary artery without angina pectoris; Z95.5 Presence of coronary angioplasty implant and graft; E11.22 Type 2 diabetes mellitus with diabetic chronic kidney disease; Z99.2 Dependence on renal dialysis; Z85.3 Personal history of malignant neoplasm of breast; E03.9 Hypothyroidism, unspecified; Z90.11 Acquired absence of right breast and nipple; Z90.12 Acquired absence of left breast and nipple; D46.9 Myelodysplastic syndrome, unspecified; M10.9 Gout, unspecified; Z66 Do not resuscitate; I35.0 Nonrheumatic aortic (valve) stenosis; D63.1 Anemia in chronic kidney disease; R63.0 Anorexia; Z68.29 Body mass index [BMI] 29.0-29.9, adult
CPT/HCPCS: 36415; 71045-TC-FY; 80048; 80053; 81003; 81015; 82607; 82728; 82746; 82962; 83540; 83550; 83735; 84100; 84443; 84484; 85025; 85610; 85730; 87804; 93005; 93010; 97116-GP; 97161-GP; 99285-25; G0378

== ENCOUNTER 2019-08-01 16:19 | Emergency (ER) | payer BC, OTHER ==
[2019-08-01 16:42] VITALS: BMI 30.4
--- NOTE | 2019-08-01 17:24 | PDOC ---
History of Present Illness - General History Source: Patient Exam Limitations: Clinical Condition - History of Present Illness Initial Comments: 08/01/19 17:28 Patient with history of multiple comorbidities, renal failure and heart failure sent in by dialysis department for blocked AV shunt. Patient received dialysis 3 times a day and went for dialysis yesterday which she was advised to come to ED due to blocked duct. Patient last dialysis was 3 days ago. Denies shortness of breath, dizziness, palpitations, chest pain, nausea or vomiting. Denies any symptoms Is this a multiple visit Asthma Patient?: No Timing/Duration: 24 hours <Wayne Wan - Last Filed: 08/01/19 19:33> <Marilynn Thacker - Last Filed: 08/02/19 19:01> - General Chief Complaint: Dialysis Shunt Problem Stated Complaint: PORT BLOCKAGE Time Seen by Provider: 08/01/19 17:03 Past History - Past Medical History Anemia: No Asthma: No Cancer: (partial mastectomy, and lumpectomy) Cardiac Disorders: Yes (STENT 21 YRS AGO) CVA: No COPD: No CHF: Yes (TAKES LASIX) Dementia: No Diabetes: Yes (NIDDM) Dialysis: Yes (MON, WED , FRI) GI Disorders: No Disorders: No HTN: Yes Hypercholesterolemia: Yes Liver Disease: No Seizures: No Thyroid Disease: No - Surgical History Abdominal Surgery: (appendix removal) Appendectomy: Yes Cardiac Surgery: Yes (ANGIO) Cholecystectomy: No Lung Surgery: No Neurologic Surgery: No Orthopedic Surgery: No - Immunization History Immunization Up to Date: Yes - Psycho Social/Smoking Cessation Hx Smoking Status: No Smoking History: Never smoked Have you smoked in the past 12 months: No Number of Cigarettes Smoked Daily: 0 Hx Alcohol Use: No Drug/Substance Use Hx: No Substance Use Type: None Hx Substance Use Treatment: No <Wayne Wan - Last Filed: 08/01/19 19:33> <Marilynn Thacker - Last Filed: 08/02/19 19:01> - Past Medical History Allergies/Adverse Reactions: Allergies Allergy/AdvReac Type Severity Reaction Status Date / Time metronidazole [From Flagyl] Allergy Severe Swelling Verified 08/01/19 16:43 Home Medications: Ambulatory Orders Atorvastatin Ca [Lipitor] 40 mg PO HS 03/19/14 Metoprolol Succinate [Toprol XL -] 100 mg PO HS 03/19/14 Levothyroxine [Synthroid -] 25 mcg PO DAILY 02/13/18 Apixaban [Eliquis] 2.5 mg PO BID #60 tablet 10/02/18 Sevelamer HCl 800 mg PO TID 08/01/19 Torsemide [Demadex -] 20 mg PO QID #20 tablet 08/01/19 Review of Systems - Review of Systems Able to Perform ROS?: Yes Is the patient limited Citizen [place] proficient: No Constitutional: No: Chills, Fever, Malaise, Weakness HEENTM: No: Symptoms Reported Respiratory: No: Symptoms reported, See HPI, Cough, Orthopnea, Shortness of Breath, SOB with Exertion, SOB at Rest, Stridor, Wheezing, Productive cough, Hemoptysis, Other Cardiac (ROS): No: Symptoms Reported, See HPI, Chest Pain, Edema, Irregular Heart Rate, Lightheadedness, Palpitations, Syncope, Chest Tightness, Other ABD/GI: No: Symptoms Reported, Nausea, Vomiting Musculoskeletal: No: Symptoms Reported Integumentary: No: Symptoms Reported, Other Neurological: No: Symptoms reported, Headache, Numbness, Paresthesia, Dizziness All Other Systems: Reviewed and Negative <Wayne Wan - Last Filed: 08/01/19 19:33> *Physical Exam - Vital Signs Last Vital Signs Temp Pulse Resp BP Pulse Ox 98 F 57 L 18 130/44 L 99 08/01/19 16:40 08/01/19 16:40 08/01/19 16:40 08/01/19 16:40 08/01/19 16:40 - Physical Exam 08/01/19 17:23 GENERAL: Well developed, well nourished. Awake and alert. No acute distress. HEENT: Normocephalic, atraumatic. PERRLA, EOMI. No conjunctival pallor. Sclera are non-icteric. Moist mucous membranes. Oropharynx is clear. NECK: Supple. Full ROM. CARDIOVASCULAR: Regular rate and rhythm. No murmurs, rubs, or gallops. Distal pulses are 2+ and symmetric. PULMONARY: No evidence of respiratory distress. Lungs clear to auscultation bilaterally. No wheezing, rales or rhonchi. ABDOMINAL: Soft. Non-tender. Non-distended. No rebound or guarding. No organomegaly. Normoactive bowel sounds. MUSCULOSKELETAL Normal range of motion at all joints. SKIN: Warm and dry. Normal capillary refill. No rashes. palpable AV shunt to left upper arm on medial side. NEUROLOGICAL: Alert, awake, appropriate. Gait is normal without ataxia. PSYCHIATRIC: Cooperative. Good eye contact. Appropriate mood General Appearance: Yes: Nourished, Appropriately Dressed. No: Apparent Distress <Wayne Wan - Last Filed: 08/01/19 19:33> - Vital Signs Last Vital Signs Temp Pulse Resp BP Pulse Ox 98 F 57 L 18 130/44 L 99 08/01/19 16:40 08/01/19 16:40 08/01/19 16:40 08/01/19 16:40 08/01/19 16:40 <Marilynn Thacker - Last Filed: 08/02/19 19:01> Heart Score/ECG Review #1 ECG reviewed & interpreted by me at: 17:40 General ECG Interpretation: Sinus Rhythm, Normal Rate Compared to previous ECG there are: No significant change 08/01/19 17:59 LBBB, left axis, nonspecific T wave abnormalities. no elevations NSR at 63 bpm <Marilynn Thacker - Last Filed: 08/02/19 19:01> ED Treatment Course - LABORATORY CBC & Chemistry Diagram: 08/01/19 18:00 08/01/19 18:00 <Wayne Wan - Last Filed: 08/01/19 19:33> - LABORATORY CBC & Chemistry Diagram: 08/01/19 18:00 08/01/19 18:00 <Marilynn Thacker - Last Filed: 08/02/19 19:01> Medical Decision Making - Medical Decision Making 08/01/19 17:29 Patient with history of multiple comorbidities, renal failure and heart failure sent in by dialysis department for blocked AV shunt. Patient received dialysis 3 times a day and went for dialysis yesterday which she was advised to come to ED due to blocked duct. Patient last dialysis was 3 days ago. Denies shortness of breath, dizziness, palpitations, chest pain, nausea or vomiting. Denies any symptom. Exam significant for palpable AV fistula left upper arm with palpable posterior lower portion of fistula. No sounds auscultated on AV fistula site. Call made to vascular DrMariano Yipel for follow-up management of fistula problem and awaiting callback 08/01/19 17:30 Admission labs ordered and EKG ordered 08/01/19 19:[address] Saldaña who [place] aware [place] country and patient's vascular specialist who is Dr. Arenas is out of town as well. Called by patient's drop pit worker Dr. Miguel Liang who advised since patient has abnormal potassium level and normal EKG, pt does not need to be admitted to the hospital as pt who not receive vascular services needed over the weekend and pt does not need urgent dialysis. Dr. Liang reported he will make arrangement with dialysis center to make arrangement with vascular access center for patient in 2 days and advised to send patient home on torsemide 80 mg once daily and advised patient to decrease potassium intake and watch fluid intake with advised to come back to emergency room if worsening symptoms of shortness of breath, chest pain otherwise follow-up on Sunday for management dialysis. Plan discussed with patient and patient agrees with plan. Patient stable for discharge <Wayne Wan - Last Filed: 08/01/19 19:33> - Medical Decision Making The patient was seen and evaluated in conjunction with midlevel provider under my direct supervision, ancillary studies were reviewed. I agree with the plan as outlined PAVEL Wan. HPI, workup/dispo as outlined. VS reviewed, wnl. EKG with LBBB and left axis appearance, sinus rhythm at 63 bpm. intermittent pvc will need HD check lytes, K fistula clotted, unable to access there Dr Saldaña lead web application developer, away for the weekend. Nephro cs, arrange for dialysis/ no acute changes, medical management, definitive care/management of the fistula, coordinate for dialysis and will need alternative access. 08/01/19 17:57 08/02/19 19:00 <Marilynn Thacker - Last Filed: 08/02/19 19:01> Discharge - Discharge Information Problems reviewed: Yes - Admission No <Wayne Wan - Last Filed: 08/01/19 19:33> <Marilynn Thacker - Last Filed: 08/02/19 19:01> - Discharge Information Clinical Impression/Diagnosis: AVF (arteriovenous fistula), Acute on chronic diastolic heart failure CHF (congestive heart failure) Qualifiers: Heart failure type: unspecified Heart failure chronicity: chronic Qualified Code(s): I50.9 - Heart failure, unspecified Condition: Stable Disposition: HOME - Additional Discharge Information Prescriptions: Torsemide [Demadex -] 20 mg PO QID #20 tablet - Follow up/Referral Referrals: Walker Padilla MD [Primary Care Provider] - Miguel Ramirez MD [Staff Physician] - - Patient Discharge Instructions Additional Instructions: Take prescribed medication torsemide 80 mg daily as instructed with Dr. Liang. Dr. Ramirez will contact dialysis center to make appointment for dialysis on Sunday with vascular access of [place] you will be contacted by dialysis center with appointment. Dr. Liang request for you to come back to emergency room if unable to get appointment by Sunday to arrange vascular access for dialysis. Decrease potassium intake and water intake - Post Discharge Activity
[2019-08-01 18:13] LABS: BASO % 1.3 % (0-2.0); HEMATOCRIT 34.1 % (32.4-45.2); HEMOGLOBIN 11.4 GM/dL (10.7-15.3); MCHC 33.5 g/dl (32.0-36.0); MEAN CELL VOLUME 101.6 fl (80-96); MEAN PLT VOLUME 9.9 fl (7.5-11.1); MONO % 8.7 % (3.8-10.2); PLATELET COUNT 155 K/MM3 (134-434); RBC 3.36 M/mm3 (3.60-5.2); RDW 14.3 % (11.6-15.6); WHITE BLOOD COUNT 5.9 K/mm3 (4.0-10.0)
[2019-08-01 18:26] LABS: INR 1.04 (0.83-1.09); PROTHROMBIN TIME (PATIENT) 12.3 SEC (9.7-13.0)
[2019-08-01 18:28] LABS: ACTIVATED PTT 26.7 SECONDS (25.2-36.5)
--- NOTE | 2019-08-01 18:38 | CONSULT ---
Consult - text type - Consultation Consultation Note: Renal consult for ESRD on HD with AV access dysfunction This is a 89 year old woman with history of ESRD on HD (MWF), AFib on A/C who presented from HD unit with clotted AVG. Pt is without any acute complaints. Denies any shortness of breath or chest pain. Last dialysis was Sunday ( holiday schedule). She still makes urine. No abdominal pain, fever, chills ,N/V/ D. PMhx: as above Allergies: Metronidazole Family Hx: NC Social Hx: No T/A/D ROS: as per HPI, all other pertinent ros negative Home Medications Medication Instructions Recorded Atorvastatin Ca [Lipitor] 40 mg PO HS 03/19/14 Metoprolol Succinate [Toprol XL -] 100 mg PO HS 03/19/14 Levothyroxine [Synthroid -] 25 mcg PO DAILY 02/13/18 Apixaban [Eliquis] 2.5 mg PO BID #60 tablet 10/02/18 Sevelamer HCl 800 mg PO TID 08/01/19 Torsemide [Demadex -] 20 mg PO QID 08/01/19 Vital Signs Temperature 98 F 08/01/19 16:40 Pulse Rate 57 L 08/01/19 16:40 Respiratory Rate 18 08/01/19 16:40 Blood Pressure 130/44 L 08/01/19 16:40 O2 Sat by Pulse Oximetry (%) 99 08/01/19 16:40 Intake & Output 07/29/19 07/30/19 07/31/19 08/01/19 23:59 23:59 23:59 23:59 Weight 68.492 kg NAD awake and alert neck supple RRR CTA soft NT/ND no LE edema, clubbing or cyanosis CBC, BMP 08/01/19 18:00 89 year old woman with history of ESRD on HD (MWF), AFib on A/C who presented from HD unit with clotted AVG. 1. Clotted AVG 2. ESRD on HD 3. Afib on A/C Check labs to determine if there is any aucte need for dialysis. Will need to contact vascular surgery regarding intervetion for clotted AVG no signs of volume overload. Will follow Miguel Ramirez DO
[2019-08-01 18:39] LABS: ALBUMIN 3.3 g/dl (3.4-5.0); BILIRUBIN,TOTAL 0.4 mg/dL (0.2-1); BLOOD UREA NITROGEN 71.8 mg/dL (7-18); CALCIUM 8.3 mg/dL (8.5-10.1); CREATININE 3.9 mg/dL (0.55-1.3); POTASSIUM 4.7 mmol/L (3.5-5.1)
[2019-08-01 19:50] VITALS: BP 141/69; PULSE 60; TEMP 98.4
--- NOTE | 2019-08-02 13:34 | EKG ---
Test Reason : Blood Pressure : / mmHG Vent. Rate : 063 BPM Atrial Rate : 063 BPM P-R Int : 228 ms QRS Dur : 136 ms QT Int : 500 ms P-R-T Axes : 086 -66 105 degrees QTc Int : 511 ms SINUS RHYTHM WITH 1ST DEGREE A-V BLOCK WITH PREMATURE SUPRAVENTRICULAR COMPLEXES LEFT AXIS DEVIATION LEFT BUNDLE BRANCH BLOCK ABNORMAL ECG WHEN COMPARED WITH ECG OF 14-OCT-2018 23:35, SINUS RHYTHM HAS REPLACED ATRIAL FIBRILLATION VENT. RATE HAS DECREASED BY 64 BPM T WAVE INVERSION NOW EVIDENT IN LATERAL LEADS Confirmed by MD ANGELIQUE, MATHIEU ([id number]) on 08/02/2019 1:33:42 PM Referred By: Confirmed By:MATHIEU MERINO MD
== END 2019-08-01 20:01 | disposition home or self-care (01) ==
LOC: JER 16:19
DX: T82.898A Other specified complication of vascular prosthetic devices, implants and grafts, initial encounter (principal); I13.2 Hypertensive heart and chronic kidney disease with heart failure and with stage 5 chronic kidney disease, or end stage renal disease; E11.22 Type 2 diabetes mellitus with diabetic chronic kidney disease; N18.6 End stage renal disease; I50.33 Acute on chronic diastolic (congestive) heart failure; I50.84 End stage heart failure; N17.8 Other acute kidney failure; Z99.2 Dependence on renal dialysis; Z79.84 Long term (current) use of oral hypoglycemic drugs; E78.00 Pure hypercholesterolemia, unspecified; Z95.5 Presence of coronary angioplasty implant and graft; Z85.3 Personal history of malignant neoplasm of breast; Z90.10 Acquired absence of unspecified breast and nipple; Z88.8 Allergy status to other drugs, medicaments and biological substances
CPT/HCPCS: 36415; 80053; 85025; 85610; 85730; 93005; 93010; 99284-25

== ENCOUNTER 2019-08-04 09:03 | Emergency (ER) | payer BC ==
[2019-08-04 09:14] VITALS: BMI 30.4
[2019-08-04 10:13] LABS: HEMATOCRIT 33.3 % (32.4-45.2); MCHC 32.8 g/dl (32.0-36.0); MEAN CELL VOLUME 100.5 fl (80-96); MEAN PLT VOLUME 9.2 fl (7.5-11.1); PLATELET COUNT 132 K/MM3 (134-434); RBC 3.32 M/mm3 (3.60-5.2); RDW 13.2 % (11.6-15.6); WHITE BLOOD COUNT 4.5 K/mm3 (4.0-10.0)
[2019-08-04 10:34] LABS: INR 1.11 (0.83-1.09); PROTHROMBIN TIME (PATIENT) 13.1 SEC (9.7-13.0)
[2019-08-04 10:47] LABS: ALBUMIN 3.3 g/dl (3.4-5.0); BILIRUBIN,TOTAL 0.4 mg/dL (0.2-1); BLOOD UREA NITROGEN 99.8 mg/dL (7-18); CALCIUM 8.4 mg/dL (8.5-10.1); CREATININE 4.7 mg/dL (0.55-1.3); POTASSIUM 4.2 mmol/L (3.5-5.1); TOT PROT 6.8 g/dl (6.4-8.2)
--- NOTE | 2019-08-04 10:51 | PDOC ---
History of Present Illness - General Chief Complaint: Dialysis Shunt Problem Stated Complaint: FOLLOW-UP Time Seen by Provider: 08/04/19 09:40 History Source: Patient Exam Limitations: No Limitations - History of Present Illness Initial Comments: 08/04/19 10:53 Patient is an 89F with history of ESRD (HD MWF), Afib (on Eliquis) CAD s/p stent , CHF, HTN, HLD, NIDDM, Breast Ca s/p mastectomy here today due to shunt not working during dialysis. Patient last received dialysis 6 days ago. Patient came in to the ED on sunday due to the shunt not working. Workup showed a normal K, nephrology cleared for dc with increased diuretics. Patient states that she feels a little weak from not eating in anticipation of a surgery. Patient reports increase in urination. Denies chest pain, shortness of breath. PCP: Valerie Nephro: James Vascular Surgeon: Sascha Past History - Past Medical History Allergies/Adverse Reactions: Allergies Allergy/AdvReac Type Severity Reaction Status Date / Time metronidazole [From Flagyl] Allergy Severe Swelling Verified 08/04/19 09:15 Home Medications: Ambulatory Orders Atorvastatin Ca [Lipitor] 40 mg PO HS 03/19/14 Metoprolol Succinate [Toprol XL -] 100 mg PO HS 03/19/14 Levothyroxine [Synthroid -] 25 mcg PO DAILY 02/13/18 Apixaban [Eliquis] 2.5 mg PO BID #60 tablet 10/02/18 Sevelamer HCl 800 mg PO TID 08/01/19 Torsemide [Demadex -] 20 mg PO QID #20 tablet 08/01/19 Anemia: No Asthma: No Cancer: (partial mastectomy, and lumpectomy) Cardiac Disorders: Yes (STENT 21 YRS AGO) CVA: No COPD: No CHF: Yes (TAKES LASIX) Dementia: No Diabetes: Yes (NIDDM) Dialysis: Yes (MON, WED , SUN) GI Disorders: No Disorders: No HTN: Yes Hypercholesterolemia: Yes Liver Disease: No Seizures: No Thyroid Disease: No - Surgical History Abdominal Surgery: (appendix removal) Appendectomy: Yes Cardiac Surgery: Yes (ANGIO) Cholecystectomy: No Lung Surgery: No Neurologic Surgery: No Orthopedic Surgery: No - Immunization History Immunization Up to Date: Yes - Psycho Social/Smoking Cessation Hx Smoking Status: No Smoking History: Never smoked Have you smoked in the past 12 months: No Number of Cigarettes Smoked Daily: 0 Hx Alcohol Use: No Drug/Substance Use Hx: No Substance Use Type: None Hx Substance Use Treatment: No Review of Systems - Review of Systems Able to Perform ROS?: Yes Comments:: 08/04/19 10:59 GENERAL/CONSTITUTIONAL: No fever or chills. No weakness. HEAD, EYES, EARS, NOSE AND THROAT: No change in vision. No sore throat. CARDIOVASCULAR: No chest pain or shortness of breath RESPIRATORY: No cough, wheezing, or hemoptysis. GASTROINTESTINAL: No nausea, vomiting, diarrhea or constipation. GENITOURINARY: No dysuria, frequency, or change in urination. MUSCULOSKELETAL: No joint or muscle swelling or pain. No neck or back pain. SKIN: No rash NEUROLOGIC: No headache, vertigo, loss of consciousness, or change in strength/ sensation. HEMATOLOGIC/LYMPHATIC: No anemia, easy bleeding, or history of blood clots. ALLERGIC/IMMUNOLOGIC: No hives or skin allergy. *Physical Exam - Vital Signs Last Vital Signs Temp Pulse Resp BP Pulse Ox 97.7 F 64 16 146/44 L 97 08/04/19 09:09 08/04/19 09:09 08/04/19 09:09 08/04/19 09:09 08/04/19 09:09 - Physical Exam 08/04/19 10:59 GENERAL: Awake, alert, and fully oriented, in no acute distress L ARM: Fistula present with no thrill HEAD: No signs of trauma, normocephalic, atraumatic EYES: PERRLA, EOMI, sclera anicteric, conjunctiva clear ENT: Auricles normal inspection, hearing grossly normal, nares patent, oropharynx clear without exudates. Moist mucosa NECK: Normal ROM, supple, no lymphadenopathy, JVD, or masses LUNGS: No distress, speaks full sentences, clear to auscultation bilaterally HEART: Regular rate and rhythm, normal S1 and S2, no murmurs, rubs or gallops, peripheral pulses normal and equal bilaterally. ABDOMEN: Soft, nontender, normoactive bowel sounds. No guarding, no rebound. No masses EXTREMITIES: Normal inspection, Normal range of motion, no edema. No clubbing or cyanosis. NEUROLOGICAL: Cranial nerves II through XII grossly intact. Normal speech, no focal sensorimotor deficits SKIN: Warm, Dry, normal turgor, no rashes or lesions noted. ED Treatment Course - LABORATORY CBC & Chemistry Diagram: 08/04/19 09:55 08/04/19 09:55 - ADDITIONAL ORDERS Additional order review: Laboratory Results 08/04/19 12 09:55 09:55 PT with INR 13.10 H INR 1.11 H Sodium 142 Potassium 4.2 Chloride 105 Carbon Dioxide 24 Anion Gap 13 BUN 99.8 H Creatinine 4.7 H Est GFR (CKD-EPI)AfAm 8.97 Est GFR (CKD-EPI)NonAf 7.74 Random Glucose 102 Calcium 8.4 L Total Bilirubin 0.4 AST 15 ALT 15 Alkaline Phosphatase 85 Total Protein 6.8 Albumin 3.3 L 08/04/19 09:55 RBC 3.32 L MCV 100.5 H MCHC 32.8 RDW 13.2 MPV 9.2 - RADIOLOGY Radiology Studies Ordered: Category Date Time Status CHEST PA & LAT [RAD] Stat Radiology 08/04/19 09:50 Completed Medical Decision Making - Medical Decision Making 08/04/19 11:00 Patient is 89F here today with shunt malfunction. Dr Caicedo not available per his office, directed towards on-call vascular. Dr Piotr lang. Last eliquis taken yesterday. Labs reassuring, K normal. CXR shows no acute cardiopulmonary process. Does show stent in left axillary, old R humerus fracture. CBC stable. CMP reassuring. K normal. EKG shows sinus bradycardia with rate of 59. LBBB Pattern. Sgarbossa negative. No acute t waves. Case d/w [facility], accepted for transfer. Patient consented. Dr Ramirez consulted. Discharge - Discharge Information Problems reviewed: Yes Clinical Impression/Diagnosis: Problem with dialysis shunt Qualifiers: Encounter type: subsequent encounter Qualified Code(s): T82.898D - Other specified complication of vascular prosthetic devices, implants and grafts, subsequent encounter Condition: Stable Disposition: TRANSFER ACUTE CARE/OTHER HOSP - Follow up/Referral - Patient Discharge Instructions - Post Discharge Activity - Transfer to Acute Care Facility Receiving Facility Name: [facility] Accepting Physician:: Dustin
--- NOTE | 2019-08-04 11:33 | EKG ---
Test Reason : Blood Pressure : / mmHG Vent. Rate : 059 BPM Atrial Rate : 059 BPM P-R Int : 202 ms QRS Dur : 138 ms QT Int : 516 ms P-R-T Axes : 079 -64 079 degrees QTc Int : 510 ms SINUS BRADYCARDIA WITH PREMATURE ATRIAL COMPLEXES LEFT AXIS DEVIATION LEFT BUNDLE BRANCH BLOCK ABNORMAL ECG WHEN COMPARED WITH ECG OF 01-AUG-2019 17:33, NO SIGNIFICANT CHANGE WAS FOUND Confirmed by JORGE BORRERO, OLGA ([id number]) on 08/04/2019 11:33:05 AM Referred By: Confirmed By:OLGA PATEL MD
--- NOTE | 2019-08-04 11:48 | PDOC ---
Attending Attestation - Resident Resident Name: Walker Cisneros - ED Attending Attestation I have performed the following: I have examined & evaluated the patient, The case was reviewed & discussed with the resident, I agree w/resident's findings & plan, Exceptions are as noted - HPI HPI: 08/04/19 12:06 89 years old past medical history significant for end-stage renal disease Sunday A. fib on Eliquis CAD status post stent CHF hypertension hyperlipidemia [id number] diabetes breast cancer was sent to the ED for vascular surgery consultation secondary to nonfunctioning dialysis shunt patient has not received dialysis in the last 6 days feels a little weak and dizzy does make some urine - Physicial Exam PE: 08/04/19 12:39 Vitals: Triage Vital signs reviewed General Appearance: No acute distress, well nourished well developed, Cardiac: Regular rate and rhythym, no murmurs, no rubs, no gallops, Lungs: Clear to auscultation bilateral, good air movement bilaterally, Abdomen: Soft, non distended, normal bowel sounds, non tender to palpation Extremities: Full range of motion to all extremities, left arm fistula with no thrill Skin: Warm and dry, no rashes or lesions, no rash, no petechiae Psych: Normal mood, normal affect 08/04/19 12:55 - Medical Decision Making 08/04/19 12:56 Patient now status post 6 days with no dialysis. 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 Discussed with patient's md allergy immunology recommends transfer for definitive management and establishment of dialysis access Patient would prefer to be transferred to the [facility] transfer has been arranged and accepted secondary to her lack of vascular surgery
[2019-08-04 12:24] VITALS: BP 142/64; PULSE 62; TEMP 97.2
== END 2019-08-04 12:58 | disposition short-term general hospital (02) ==
LOC: JER 09:03
DX: T82.590D Other mechanical complication of surgically created arteriovenous fistula, subsequent encounter (principal); I13.2 Hypertensive heart and chronic kidney disease with heart failure and with stage 5 chronic kidney disease, or end stage renal disease; E11.22 Type 2 diabetes mellitus with diabetic chronic kidney disease; N18.6 End stage renal disease; I50.89 Other heart failure; N17.8 Other acute kidney failure; Z79.84 Long term (current) use of oral hypoglycemic drugs; Z99.2 Dependence on renal dialysis; Z95.5 Presence of coronary angioplasty implant and graft; I48.91 Unspecified atrial fibrillation; Z79.01 Long term (current) use of anticoagulants; E78.5 Hyperlipidemia, unspecified; Z85.3 Personal history of malignant neoplasm of breast; Z90.10 Acquired absence of unspecified breast and nipple; Z88.8 Allergy status to other drugs, medicaments and biological substances
CPT/HCPCS: 36415; 71046-TC-FY; 80053; 85027; 85610; 86850; 86900; 86901; 93005; 93010; 99283-25

== ENCOUNTER 2020-01-26 08:19 | Day surgery (SDC) | payer BC ==
[2020-01-22 15:18] VITALS: BMI 32.3
[2020-01-26] MEDS ORDERED: ONDANSETRON 4 MG/2 ML VIAL IVPUSH PRN ×2 (09:28→12:01)
[2020-01-26] MEDS ORDERED: PROMETHAZINE HCL 25 MG/1 ML VIAL IVPUSH PRN (09:28)
[2020-01-26] MEDS ORDERED: POVIDONE-IODINE OINTMENT 10% - 28.4 GM TUBE ONE (09:29)
[2020-01-26] MEDS ORDERED: LIDOCAINE HCL 1%, 10 MG/ML (20ML VIAL) ONE (09:29)
[2020-01-26] MEDS ORDERED: HEPARIN NA (PORCINE) 5,000 UNITS/ML 1ML VIAL ONE (09:29)
[2020-01-26] MEDS ORDERED: PAPAVERINE HCL 30 MG/1 ML 10 ML VIAL NR ONE (09:29)
--- NOTE | 2020-01-26 09:41 | HP ---
Satellite [facility] - Chief Complaint History of Present Illness: 89 year old woman with ESRD on HD. Prior AV graft has failed in left arm. Plan new AV access right arm. History Source: Patient, Medical Record - Past Medical History Allergies/Adverse Reactions: Allergies Allergy/AdvReac Type Severity Reaction Status Date / Time metronidazole [From Flagyl] Allergy Severe Swelling Verified 01/22/20 15:05 Cardiovascular: Yes: AFIB, CAD (s/p stents around 20 years ago ), CHF, HTN, Hyperlipdemia Renal/: Yes: Renal Failure, Cancer, Hemodialysis Heme/Onc: Yes: Cancer (R breast cacer- s/p partial masectomy) Musculoskeletal: Yes: Osteoarthritis Endocrine: Yes: Diabetes Mellitus - Current Medications Current Medications: Home Medications Medication Instructions Recorded Atorvastatin Ca [Lipitor] 40 mg PO HS 03/19/14 Levothyroxine [Synthroid -] 25 mcg PO DAILY 02/13/18 Apixaban [Eliquis] 2.5 mg PO BID #60 tablet 10/02/18 Sevelamer HCl 800 mg PO DAILY 08/01/19 Torsemide [Demadex -] 20 mg PO BID 12/19/19 Metoprolol Succinate [Toprol XL -] 100 mg PO HS 01/22/20 Sacubitril/Valsartan [Entresto 24 1 each PO ASDIR 01/22/20 mg-26 mg Tablet] Satellite Physical Exam - Physical Examination Vital Signs: Vital Signs Period Temp Pulse Resp BP Sys/Dan Pulse Ox Last 24 Hr 97.8 F 83 20 123/58 100 General Appearance: Well Nourished, Well Developed, Alert & Oriented x3 ENT: Clear Lung: Clear to auscultation Heart: Regular rate & rhythm Abdomen: Soft Extremities: No edema Neurological: Oriented Satellite Impression/Plan - Impression/Plan Impression: ESRD on HD Operative Procedure: Creation AV fistula right arm Date to be Performed: 01/26/20
[2020-01-26] MEDS ORDERED: MIDAZOLAM HCL 2 MG/2 ML SINGLE DOSE VIAL ONE (10:09)
[2020-01-26] MEDS ORDERED: PROPOFOL 20 ML ONE (10:09)
[2020-01-26] MEDS ORDERED: ceFAZolin SODIUM 1 GM VIAL ONE (10:17)
[2020-01-26] MEDS ORDERED: SODIUM CHLORIDE 0.9% P/F 10 ML VIAL IJ ONE (10:17)
[2020-01-26] MEDS ORDERED: ceFAZolin SODIUM 1 GM VIAL IVPB ONE (10:18)
[2020-01-26] MEDS ORDERED: HEPARIN NA (PORCINE) 5,000 UNITS/ML 1ML VIAL SQ ONE (10:30)
[2020-01-26] MEDS ORDERED: LIDOCAINE HCL 1%, 10 MG/ML (20ML VIAL) NR ONE ×2 (10:30)
--- NOTE | 2020-01-26 11:39 | OP ---
Operative Note - Note: Operative Date: 01/26/20 Pre-Operative Diagnosis: ESRD on HD Operation: Creation AV fistula right arm Findings: Patent cephalic vein and brachial artery Post-Operative Diagnosis: Same as Pre-op Surgeon: Todd Caicedo Certification Technician: Thalia Lao Anesthesiologist/STAPLE SIDE LASTER: Derick Dempsey Estimated Blood Loss (mls): 20
[2020-01-26] MEDS ORDERED: ACETAMINOPHEN WITH CODEINE 300MG/30MG TABLET PO PRN (11:40)
[2020-01-26] MEDS ORDERED: SACUBITRIL/VALSARTAN 24 MG-26 MG TABLET PO SCH (11:45)
[2020-01-26] MEDS ORDERED: ACETAMINOPHEN 325 MG TABLET (FP) PO PRN (12:04)
[2020-01-26] MEDS ORDERED: traMADol HCL 50 MG TABLET PO PRN (12:05)
--- NOTE | 2020-01-26 12:08 | SURG ---
Surgery Tipple Tender Note Tipple Tender: Thalia Lao PA-C Date of Service: 01/26/20 Diagnosis: : ESRD on HD Procedure: Creation AV fistula right arm I was present for the entirety of the operative procedure. For further detail, please refer to operative report. Visit type - Case Type Case Type: Scheduled - Emergency Emergency Visit: No - New patient This patient is new to me today: Yes Date on this admission: 01/26/20
[2020-01-26] MEDS ORDERED: DEXTROSE 5%-0.45% SALINE 1,000 ML IV SCH (12:15)
[2020-01-26] MEDS ORDERED: SODIUM CHLORIDE 250 ML IV PRN (12:18)
--- NOTE | 2020-01-26 12:23 | CON.NEP ---
Consult Consult Specialty:: Nephrology Referred by:: ESRD on HD Reason for Consultation:: ESRD - History of Present Illness Chief Complaint: New AVF creation History of Present Illness: This is a 89 year old woman with history of ESRD on HD, Afib on Coumadin who presented for AVF creation. Seen and examined in the recovery room. Offers no acute complaints. NO sob, cp, fever, chills Last dialysis was Sunday. - History Source History Provided By: Patient Limitations to Obtaining History: No Limitations - Past Medical History Cardio/Vascular: Yes: AFIB, CAD (s/p stents around 20 years ago ), CHF, HTN, Hyperlipdemia Renal/: Yes: Renal Failure, Cancer, Hemodialysis Musculoskeletal: Yes: Osteoarthritis Endocrine: Yes: Diabetes Mellitus - Past Surgical History Past Surgical History: Yes: AV Fistula/Graft (Left arm), Mastectomy (partial R sided ), Stent - Alcohol/Substance Use Hx Alcohol Use: No History of Substance Use: reports: None - Smoking History Smoking history: Never smoked Have you smoked in the past 12 months: No Aproximately how many cigarettes per day: 0 - Social History Usual Living Arrangement: Alone ADL: Independent History of Recent Travel: No Home Medications - Allergies Allergies/Adverse Reactions: Allergies Allergy/AdvReac Type Severity Reaction Status Date / Time metronidazole [From Flagyl] Allergy Severe Swelling Verified 01/22/20 15:05 - Home Medications Home Medications: Ambulatory Orders Atorvastatin Ca [Lipitor] 40 mg PO HS 03/19/14 Levothyroxine [Synthroid -] 25 mcg PO DAILY 02/13/18 Apixaban [Eliquis] 2.5 mg PO BID #60 tablet 10/02/18 Sevelamer HCl 800 mg PO DAILY 08/01/19 Torsemide [Demadex -] 20 mg PO BID 12/19/19 Metoprolol Succinate [Toprol XL -] 100 mg PO HS 01/22/20 Sacubitril/Valsartan [Entresto 24 mg-26 mg Tablet] 1 each PO ASDIR 01/22/20 Family Medical History Family History: Unremarkable Review of Systems - Review of Systems Constitutional: reports: No Symptoms Eyes: reports: No Symptoms HENT: reports: No Symptoms Neck: reports: No Symptoms Cardiovascular: reports: No Symptoms Respiratory: reports: No Symptoms Gastrointestinal: reports: No Symptoms Genitourinary: reports: No Symptoms Musculoskeletal: reports: No Symptoms Integumentary: reports: No Symptoms Nephrology Consult - Height Height: 4 ft 11 in - Weight Weight: 72.575 kg - BMI Body Mass Index (BMI): 32.3 - Lab Results CBC,BMP: CBC, BMP 01/26/20 08:35 - Physical Examination Vital Signs: Vital Signs Temperature 97.8 F 01/26/20 09:05 Pulse Rate 83 01/26/20 09:05 Respiratory Rate 01/26/20 09:05 Blood Pressure 123/58 L 01/26/20 09:05 O2 Sat by Pulse Oximetry (%) 100 01/26/20 09:06 Constitutional: Yes: No Distress, Calm HENT: Yes: Atraumatic Neck: Yes: Supple Cardiovascular: Yes: Regular Rate and Rhythm Respiratory: Yes: Regular Gastrointestinal: Yes: Soft Extremities: No: Cold, Cool, Cyanosis Edema: No Neurological: Yes: Alert, Oriented Assessment/Plan 89 year old woman with history of ESRD on HD, Afib on Coumadin who presented for AVF creation. 1. ESRD on HD 2. New AVF creation 3. Afib 4. CKD related anemia s/p AVF creation tolerated procedure well For Hd today with UF as tolerated Check BMP, CBC today before dialysis Pain control as needed CEDRIC as needed for anemia Miguel Ramirez DO
[2020-01-26 13:57] LABS: HEMATOCRIT 31.8 % (32.4-45.2); HEMOGLOBIN 10.4 GM/dL (10.7-15.3); MCH 33.8 pg (25.7-33.7); MCHC 32.6 g/dl (32.0-36.0); MEAN CELL VOLUME 103.5 fl (80-96); PLATELET COUNT 136 K/MM3 (134-434); RBC 3.08 M/mm3 (3.60-5.2)
[2020-01-26 14:00] LABS: BLOOD UREA NITROGEN 75.6 mg/dL (7-18); CALCIUM 8.3 mg/dL (8.5-10.1); CREATININE 4.9 mg/dL (0.55-1.3); POTASSIUM 4.8 mmol/L (3.5-5.1)
[2020-01-26] MEDS: TORSEMIDE 20 MG TABLET (FP) PO SCH (18:46)
[2020-01-26] MEDS: SODIUM CHLORIDE 1,000 ML IV SCH (18:47)
[2020-01-26] MEDS ORDERED: APIXABAN 2.5 MG TABLET PO SCH (22:00)
[2020-01-26] MEDS ORDERED: ATORVASTATIN CA 40 MG TABLET (FP) PO SCH (22:00)
[2020-01-27] MEDS: TORSEMIDE 20 MG TABLET (FP) PO SCH ×2 (06:09→13:35)
[2020-01-27] MEDS ORDERED: LEVOTHYROXINE NA 25 MCG TABLET (FP) PO SCH (07:00)
[2020-01-27] MEDS ORDERED: SEVELAMER CARBONATE 800 MG TAB (FP) PO SCH (08:00)
[2020-01-27] MEDS ORDERED: ACETAMINOPHEN 325 MG TABLET (FP) PO PRN (09:10)
--- NOTE | 2020-01-27 09:24 | PN ---
Progress Note (short form) - Note Progress Note: Vascular Surgery: Pt without any complaints of right hand pain, some pain at the incision. No numbness or tingling to hands b/l. Vital Signs Period Temp Pulse Resp BP Sys/Dan Pulse Ox Last 24 Hr 97.5 F-98.8 F 60-84 16-20 96-119/45-64 95-98 GEn: A&0x3, NAD Right arm with thrill and inc c/d/i with martinez. Right hand with faint radial pulse and heard with doppler but slightly faint in comparison with the left. Left hand warm right hand cooler. Slight delayed cap refill to right versus left. Ramp Agent strength equal b/l. A/P: 89 yo female s/p RUE fistula, POD#1 Slight decreased pulse without any right hand pain She had hemodialysis yesterday and will plan for discharge today Dry dressing to incision, spoke with patient regarding what to monitor for her surgical care. Keep incision clean/dry and covered. If she develops right hand pain call Dr. Caicedo. Schedule routine follow-up for 2 weeks. Continue hemodialysis via her permacath
[2020-01-27] MEDS ORDERED: PT OWN MED DRAWER 7, Y5N ONE ×2 (09:45→13:53)
[2020-01-27] MEDS: SODIUM CHLORIDE 1,000 ML IV SCH (09:53)
[2020-01-27] MEDS ORDERED: APIXABAN 2.5 MG TABLET PO SCH (10:00)
--- NOTE | 2020-01-27 16:40 | PN ---
Progress Note, Physician Chief Complaint: New AVF creation History of Present Illness: Seen and examined at the bedside awake and alert discharge was held this am due to low BP pt denies any dizziness or lightheadedness no cp or shortness of breath s/p dialysis yesterday orthostatics done at the bedside were negative - Current Medication List Current Medications: Active Medications Acetaminophen (Tylenol -) 650 mg PO Q6H PRN PRN Reason: PAIN LEVEL 1 - 3 Last Admin: 01/27/20 09:55 Dose: 650 mg Documented by: Acetaminophen/Codeine Phosphate (Tylenol # 3 -) 1 tab PO Q4H PRN PRN Reason: PAIN LEVEL 4 - 6 Apixaban (Eliquis -) 2.5 mg PO BID [facility] Last Admin: 01/27/20 09:55 Dose: 2.5 mg Documented by: Atorvastatin Calcium (Lipitor -) [address] [facility] Last Admin: 01/26/20 21:46 Dose: 40 mg Documented by: Sodium Chloride (Normal Saline -) 1,000 mls @ 42 mls/hr IV ASDIR [facility] Last Admin: 01/27/20 09:53 Dose: Not Given Documented by: Levothyroxine Sodium (Synthroid -) 25 mcg PO DAILY@0700 [facility] Last Admin: 01/27/20 06:39 Dose: 25 mcg Documented by: Metoprolol Succinate (Toprol Xl -) [address] [facility] Last Admin: 01/26/20 21:46 Dose: 100 mg Documented by: Ondansetron HCl (Zofran Injection) 4 mg IVPUSH Q6H PRN PRN Reason: NAUSEA AND/OR VOMITING Sacubitril/Valsartan (Entresto 24 Mg-26 Mg Tablet) 1 tab PO ASDIR [facility] Sevelamer Carbonate (Renvela -) 800 mg PO DAILY@0800 [facility] Last Admin: 01/27/20 09:55 Dose: 800 mg Documented by: Torsemide (Demadex -) 20 mg PO BIDLASIX [facility] Last Admin: 01/27/20 13:35 Dose: Not Given Documented by: - Objective Vital Signs: Vital Signs Temperature 98.3 F 01/27/20 13:34 Pulse Rate 74 01/27/20 13:34 Respiratory Rate 20 01/27/20 13:34 Blood Pressure 96/41 L 01/27/20 13:34 O2 Sat by Pulse Oximetry (%) 97 01/26/20 22:00 Constitutional: Yes: No Distress Neck: Yes: Supple Respiratory: Yes: Regular Extremities: No: Cyanosis Edema: No Neurological: Yes: Alert Labs: CBC, BMP 01/26/20 13:20 01/26/20 13:20 Assessment/Plan 89 year old woman with history of ESRD on HD, Afib on Coumadin who presented for AVF creation. 1. ESRD on HD 2. New AVF creation 3. Afib 4. CKD related anemia 5. Borderline BP Orthostatics are negative and pt is asymptomatic reviewed BP from outpatient dialysis, BP usually runs 100-120's/50-60 Will recommend holding Entresto and Torsemide for now can monitor BP at dialysis and restart as needed Case discussed with vascular surgery team can resume dialysis tomorrow as an outpatient Miguel Ramirez DO
[2020-01-27 17:17] VITALS: TEMP 98.7
[2020-01-27 18:05] VITALS: BP 105/55; PULSE 73
--- NOTE | 2020-01-29 17:19 | OP ---
DATE OF OPERATION: 01/26/2020 SURGEON: Todd Ansari MD TIPPLE SUPERVISOR: PAVEL Saniz PROCEDURE: Creation of arteriovenous fistula, right arm. PREOPERATIVE DIAGNOSIS: Renal failure. POSTOPERATIVE DIAGNOSIS: Renal failure. ANESTHESIOLOGIST: Derick Dempsey MD ANESTHESIA: Conscious sedation. OPERATIVE PROCEDURE: Following routine patient identification with side and site verification, intravenous sedation was established. The right arm was prepped with ChloraPrep. Timeout was performed. Lidocaine 1% was infiltrated in the antecubital fossa and a longitudinal incision made. Subcutaneous tissues were divided with cautery. The cephalic vein was mobilized. Distal side branches were ligated with silk ties and divided. The vein was dissected deep along a branch which was patent. This was ligated distally. The vein was then incised and distended with heparin and papaverine solution. No. 8 feeding tubes were passed proximally without resistance. The vein was occluded with a small bulldog clamp. The incision was deepened through the muscle fascia, and the brachial artery was mobilized. Secured with Vesseloops. Side branches were ligated and divided. The area was then occluded with Vesseloops and open on exposed surface with a 6-mm arteriotomy. The end of the vein was then spatulated, anastomosed to the side of the artery with running suture of 6-0 Prolene. Prior to completion of the suture line, the artery was allowed to backbleed and flush. Suture line was completed and the vessels were released. There was good flow through the anastomosis with a palpable thrill in the proximal vein. Bleeding from the suture line was controlled with Surgicel. When hemostasis was adequate, the wound was closed with interrupted suture of 3-0 Vicryl on subcutaneous tissues and skin martinez. Sterile dressings were applied, and the patient was taken to recovery room in stable condition. TODD ANSARI M.D. [id number]
== END 2020-01-27 18:06 | disposition home or self-care (01) ==
LOC: JASUSAT 08:19 → J8W 16:56 → JASUSAT 01-27 18:06
PROVIDERS: ATTEND Surgery
PROC: 03170ZD Bypass Right Brachial Artery to Upper Arm Vein, Open Approach (ICD-10-PCS; principal; 2020-01-26 10:00)
DX: I12.0 Hypertensive chronic kidney disease with stage 5 chronic kidney disease or end stage renal disease (principal); E11.22 Type 2 diabetes mellitus with diabetic chronic kidney disease; N18.6 End stage renal disease; Z99.2 Dependence on renal dialysis; I48.91 Unspecified atrial fibrillation; Z79.01 Long term (current) use of anticoagulants; E03.9 Hypothyroidism, unspecified; Z85.3 Personal history of malignant neoplasm of breast
CPT/HCPCS: 36415; 80048; 84132; 85027; 86803; 87340; 94760; J1644

== ENCOUNTER 2020-03-23 02:43 | Inpatient (IN) | payer BC, OTHER ==
--- NOTE | 2020-03-23 02:48 | PDOC ---
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 Patient recently seen in [facility] ED 3 days ago for abdominal pain, was treated for gastritis and felt better after GI cocktail. Patient has ESRD and congenital atrophic kidney, gets M/W/F HD. Today reports 1.5L HD, normally 3L. Has new RUE fistula, old LUE fistula, and port access to R neck. Afterwards felt SOB all day, difficulty ambulating, worse when lying in bed. Tried to use more pillows and sit up in chair, but still having orthopnea, called EMS for SOB. Has had CAD and stenting done and has known AFIB, denies chest pain or palpitations today. Has known history of CHF, not having worsening leg swelling. No asthma or COPD history, not on home O2. Denies abdominal pain at this time, says she is not eating enough, fluid restricted due to HD. Denies nausea/vomiting but feels constipated. Makes urine still. Allergy to Flagyl is anaphylaxis. Denies alcohol/drugs. PSH: appy, cardiac stents, R partial mastectomy PMD: Valerie Cards: Nitin Nephro: Maria A Araujo Past History - Medical History Allergies/Adverse Reactions: Allergies Allergy/AdvReac Type Severity Reaction Status Date / Time metronidazole [From Flagyl] Allergy Severe Swelling Verified 03/23/20 02:53 Home Medications: Ambulatory Orders Atorvastatin Ca [Lipitor] 40 mg PO HS 03/19/14 Levothyroxine [Synthroid -] 25 mcg PO DAILY 02/13/18 Apixaban [Eliquis] 2.5 mg PO BID #60 tablet 10/02/18 Sevelamer HCl 800 mg PO DAILY 08/01/19 Metoprolol Succinate [Toprol XL -] 100 mg PO HS 01/22/20 Acetaminophen [Tylenol .Regular Strength -] 650 mg PO Q6H PRN tablet 01/27/20 Sacubitril/Valsartan [Entresto 24 mg-26 mg Tablet] 1 each PO .BID@Saturdays01/27/20 Torsemide 1 tab PO DAILY 03/20/20 Anemia: No Asthma: No Cancer: (partial mastectomy, and lumpectomy) Cardiac Disorders: Yes (STENT 21 YRS AGO) CVA: No COPD: No CHF: Yes (TAKES LASIX) Dementia: No Diabetes: Yes (NIDDM) Dialysis: Yes (MON, WED , SUN) GI Disorders: No Disorders: No HTN: Yes Hypercholesterolemia: Yes Liver Disease: No Seizures: No Thyroid Disease: No - Surgical History Abdominal Surgery: (appendix removal) Appendectomy: Yes Cardiac Surgery: Yes (ANGIO) Cholecystectomy: No Lung Surgery: No Neurologic Surgery: No Orthopedic Surgery: No - Immunization History Immunization Up to Date: Yes - Psycho-Social/Smoking History Smoking Status: No Smoking History: Never smoked Have you smoked in the past 12 months: No Number of Cigarettes Smoked Daily: 0 Review of Systems - Review of Systems Able to Perform ROS?: Yes Constitutional: No: Symptoms Reported HEENTM: No: Symptoms Reported Respiratory: Yes: SOB with Exertion, SOB at Rest Cardiac (ROS): No: Palpitations ABD/GI: Yes: Poor Appetite, Poor Fluid Intake. No: Constipated, Diarrhea, Nausea, Vomiting, Abdominal cramping : No: Symptoms Reported Musculoskeletal: No: Symptoms Reported Integumentary: No: Symptoms Reported Neurological: No: Symptoms reported Endocrine: No: Symptoms Reported Hematologic/Lymphatic: Yes: Easy Bleeding, Easy Bruising All Other Systems: Reviewed and Negative *Physical Exam - Physical Exam General Appearance: Yes: Nourished, Appropriately Dressed, Obese, Other (resting comfortably in bed in NAD). No: Apparent Distress HEENT: positive: EOMI, JACLYN, Normal Voice, Symmetrical, Pharynx Normal, Hearing Grossly Normal. negative: Scleral Icterus (R), Scleral Icterus (L), Pharyngeal Erythema, Tonsillar Exudate, Tonsillar Erythema Neck: positive: Trachea midline, Supple. negative: Tender, Rigid, Stridor, Lymphadenopathy (R), Lymphadenopathy (L), Tender lateral, Tender midline Respiratory/Chest: positive: Crackles (R>L base). negative: Chest Tender, Lungs Clear, Normal Breath Sounds, Respiratory Distress, Accessory Muscle Use, Labored Respiration, Rhonchi, Stridor, Wheezing, Hyperresonant Cardiovascular: positive: Regular Rhythm, Regular Rate. negative: Murmur, Irregularly Irregular Gastrointestinal/Abdominal: positive: Normal Bowel Sounds, Soft, Protuberent. negative: Tender, Organomegaly, Pulsatile Mass, Guarding, Rebound Musculoskeletal: positive: Normal Inspection. negative: CVA Tenderness Extremity: positive: Normal Capillary Refill, Normal Inspection, Normal Range of Motion, Pelvis Stable, Other (bruising to L dorsal hand, bruit to RUE). negative: Tender, Coldness, Cyanosis, Pedal Edema, Swelling, Calf Tenderness Integumentary: positive: Normal Color, Dry, Warm. negative: Pale, Cold, Clammy Neurologic: positive: Fully Oriented, Alert, Normal Mood/Affect, Normal Response. negative: Facial Droop, Sensory Deficit ED Treatment Course - LABORATORY CBC & Chemistry Diagram: 03/23/20 03:30 03/23/20 03:30 Medical Decision Making - Medical Decision Making 03/23/20 03:59 Patient has SOB after receiving half volume HD with known history of CAD/CHF and AFIB. Crackles on lung exam but no gross overload. VSS, patient satting at 100% on 5L NC without respiratory distress. Concerned for CHF exacerbation triggered by fluid overload from low volume HD today. Ddx includes ACS, anemia, PNA, covid-19 infection. Evaluating broadly with CBC/CMP/CP/Coags/T&S/UA/UC/ECG/CXR. 03/23/20 04:02 CXR bedside read possible infiltrate vs. effusion vs. edema to R lung base, port access unchanged. ECG AFIB with LBBB, Hr 79, QTc 536, consistent with priors. 03/23/20 04:12 Labs notable for: - Hgb 12.5 - MCV 103.3, not anemic - PT/INR elevated but WNL - Cr 3.0 - trop 0.06, last 0.05 - BNP [id number] Patient will need admission to TELE for CHF exacerbation and likely evaluation by nephrology for dialysis for fluid overload. 03/23/20 06:20 Senior resident discussed case with admitting team, admitted to TELE for CHF. Would like consult with Dr. Araujo for recommendations and dialysis. 03/23/20 06:[address] Araujo, pending callback. 03/23/20 06:[address] Araujo on cell #, no response. Will sign out callback to day team for likely morning dialysis planning. Discharge - Discharge Information Problems reviewed: Yes Clinical Impression/Diagnosis: Shortness of breath, Pleural effusion, ESRD (end stage renal disease) on dialysis Condition: Fair - Admission Yes - Follow up/Referral - Patient Discharge Instructions - Post Discharge Activity
--- NOTE | 2020-03-23 03:02 | PDOC ---
Attending Attestation - Resident Resident Name: Arslan Peacock - ED Attending Attestation I have performed the following: I have examined & evaluated the patient, The case was reviewed & discussed with the resident, I agree w/resident's findings & plan - HPI HPI: 03/23/20 03:01 see resident hpi - Physicial Exam PE: 03/23/20 03:01 see resident exam - Medical Decision Making 03/23/20 03:01 89-year-old female with history of end-stage renal disease complaining of shortness of breath EKG shows a atrial fibrillation with a left bundle branch block with no significant change when compared to previous Chest x-ray shows pulmonary congestion with right-sided pleural effusion We will admit to medical service, call to nephrology for presumptive dialysis 03/23/20 05:46 Discharge - Discharge Information Problems reviewed: Yes Clinical Impression/Diagnosis: Shortness of breath, Pleural effusion, ESRD (end stage renal disease) on dialysis Condition: Fair - Follow up/Referral Referrals: Charles Chavez MD [Emergency Physician] - - Patient Discharge Instructions - Post Discharge Activity
[2020-03-23 03:56] LABS: BASO % 0.7 % (0-2.0); EOS % 2.6 % (0-4.5); HEMATOCRIT 37.7 % (32.4-45.2); HEMOGLOBIN 12.5 GM/dL (10.7-15.3); LYMPH % 15.6 % (8-40); MCH 34.2 pg (25.7-33.7); MCHC 33.1 g/dl (32.0-36.0); MEAN CELL VOLUME 103.3 fl (80-96); MEAN PLT VOLUME 11.5 fl (7.5-11.1); MONO % 7.8 % (3.8-10.2); NEUT % 73.3 % (42.8-82.8); PLATELET COUNT 113 K/MM3 (134-434); RBC 3.65 M/mm3 (3.60-5.2); RDW 14.4 % (11.6-15.6); WHITE BLOOD COUNT 7.4 K/mm3 (4.0-10.0)
[2020-03-23 04:13] LABS: INR 1.45 (0.83-1.09); PROTHROMBIN TIME (PATIENT) 17.2 SEC (9.7-13.0)
[2020-03-23 04:16] LABS: ACTIVATED PTT 33.7 SECONDS (25.2-36.5)
[2020-03-23 04:29] LABS: CO2 23 mmol/L (21-32); SGPT/ALT 36 U/L (13-61); SODIUM 136 mmol/L (136-145)
[2020-03-23 04:30] LABS: ALBUMIN 3.8 g/dl (3.4-5.0); ALK PHOS 113 U/L (45-117); ANION GAP 13 MMOL/L (8-16); BILIRUBIN,TOTAL 0.5 mg/dL (0.2-1); BLOOD UREA NITROGEN 28.3 mg/dL (7-18); CALCIUM 8.6 mg/dL (8.5-10.1); CHLORIDE 100 mmol/L (98-107); GLUCOSE,RANDOM 113 mg/dL (74-106); MAGNESIUM 1.9 mg/dL (1.8-2.4); POTASSIUM 3.9 mmol/L (3.5-5.1); SGOT/AST 20 U/L (15-37); TOT PROT 6.8 g/dl (6.4-8.2)
[2020-03-23 04:54] LABS: N-TERMINAL BNP 75318.4 pg/ml (5-450)
--- NOTE | 2020-03-23 09:08 | EKG ---
Test Reason : Blood Pressure : / mmHG Vent. Rate : 079 BPM Atrial Rate : 068 BPM P-R Int : 000 ms QRS Dur : 154 ms QT Int : 468 ms P-R-T Axes : 000 -83 090 degrees QTc Int : 536 ms ATRIAL FIBRILLATION LEFT AXIS DEVIATION LEFT BUNDLE BRANCH BLOCK ABNORMAL ECG WHEN COMPARED WITH ECG OF 20-MAR-2020 01:19, NO SIGNIFICANT CHANGE WAS FOUND Confirmed by Zeeshan Patton MD ([id number]) on 03/23/2020 9:07:38 AM Referred By: Confirmed By:Zeeshan Patton MD
[2020-03-23] MEDS ORDERED: SODIUM CHLORIDE 250 ML IV PRN ×2 (09:18→17:21)
--- NOTE | 2020-03-23 10:03 | HP ---
CHIEF COMPLAINT: SOB PCP: HISTORY OF PRESENT ILLNESS: 89F w/ pmh of congenital atrophic kidney, ESRD on M/W/F HD(since 2ys, doesnt know dry weight), makes a few cups of urine daily, HFrEF(LVEF 15%), CAD s/p PCI, AFIB on Eliquis, NIDDM(now off meds), h/o R partial mastectomy(5ys prior), BIBA for SOB. States that she has been having trouble taking a deep breath x1d. Worse breathing when lying supine. Had trouble sleeping last night. Since being in the ED, thinks breathing is much improved. Denies edema. Pt thinks her dialysis was went normally. Went home after HD, had appetite but had sensation of wanting to vomiting. Denies nausea. Denies weight gain. Feels constipated. Tries to minimize fluid intake, takes max of 2 glasses of fluids(coffee, gingerale, etc) daily. Will dress, bathe, and cook for herself. Uses walker. Lives independent living facility([facility]) Supplemental information provided by [facility]. Got HD on 03/22/20 via Right-sided permacath. Helpdesk Administrator is Maria A Liz. Target weight 74kg. Arrived to [facility] at 75kg. Left at 73.8kg. Completed 3hs, 1.5L removal. No no table occurences during dialysis. No complaint of SOB at that time. ER course was notable for: (1) 97.3-98.1; HR 77, BP 120/70-80s, 97%(4L NC). Then at ~8am, off NC and ambulating to restroom on RA, saturation was >98% (2) WBC 7.4 (3) H/H 12.5/97.7(MCV 103.3) (4) BUN/Cr 28.3/ 3.0 (5) Troponin 0.06(@ 03:30) (6) BNP 75,318.4 (7) EKG: Afib, VR 79, QTc 536 (8) CXR(03/22/20): bibasilar pulmonary pleural changes persist (9) no medications administered Recent Travel: PAST MEDICAL HISTORY: as above PAST SURGICAL HISTORY: open appendectomy(during teen years) ISSA TERRY(Sascha, 01/26/20) LUE AVGraft(Sascha,08/26/18) --subsequent graft failure LUE AVF(Sascha, 06/03/18) --subsequent graft failure Social History: Smokinys of 2nd-hand smoke from chronic tobacco Alcohol: denies Drugs: denies Allergies metronidazole [From Flagyl] Allergy (Severe, Verified 03/23/20 02:53) Swelling HOME MEDICATIONS: Home Medications Medication Instructions Recorded Atorvastatin Ca [Lipitor] 40 mg PO HS 03/19/14 Levothyroxine [Synthroid -] 25 mcg PO DAILY 02/13/18 Apixaban [Eliquis] 2.5 mg PO BID #60 tablet 10/02/18 Sevelamer HCl 800 mg PO DAILY 08/01/19 Metoprolol Succinate [Toprol XL -] 100 mg PO HS 01/22/20 Acetaminophen [Tylenol .Regular 650 mg PO Q6H PRN tablet 01/27/20 Strength -] Sacubitril/Valsartan [Entresto 24 1 each PO .BID@Saturdays01/27/20 mg-26 mg Tablet] Torsemide 1 tab PO DAILY 03/20/20 REVIEW OF SYSTEMS CONSTITUTIONAL: Absent: fever, chills, diaphoresis, generalized weakness, malaise, loss of appetite, weight change HEENT: Absent: rhinorrhea, nasal congestion, throat pain, throat swelling, difficulty swallowing, mouth swelling, ear pain, eye pain, visual changes CARDIOVASCULAR: Absent: chest pain, syncope, palpitations, irregular heart rate, lig htheadedness, peripheral edema RESPIRATORY: SOB, GARCIA, Orthopnea Absent: cough, wheezing, stridor, hemoptysis GASTROINTESTINAL: mild nausea, constipation Absent: abdominal pain, abdominal distension, vomiting, diarrhea, melena, hematochezia GENITOURINARY: Absent: dysuria, frequency, urgency, hesitancy, hematuria, flank pain, genital pain MUSCULOSKELETAL: Absent: myalgia, arthralgia, joint swelling, back pain, neck pain SKIN: Absent: rash, itching, pallor HEMATOLOGIC/IMMUNOLOGIC: Absent: easy bleeding, easy bruising, lymphadenopathy, frequent infections ENDOCRINE: Absent: unexplained weight gain, unexplained weight loss, heat intolerance, cold intolerance NEUROLOGIC: Absent: headache, focal weakness or paresthesias, dizziness, unsteady gait, seizure, mental status changes, bladder or bowel incontinence PSYCHIATRIC: Absent: anxiety, depression, suicidal or homicidal ideation, hallucinations. PHYSICAL EXAMINATION Vital Signs - 24 hr 03/23/20 03/23/20 03/23/20 02:48 06:08 09:04 Temperature 98.1 F 97.3 F L Pulse Rate 78 Pulse Rate [ 77 Right Radial] Respiratory 22 H 16 Rate Blood Pressure 122/81 Blood Pressure 125/77 [Left Arm] O2 Sat by Pulse 100 97 98 Oximetry (%) 03/23/20 09:07 Temperature Pulse Rate Pulse Rate [ 102 H Right Radial] Respiratory 22 H Rate Blood Pressure Blood Pressure 112/62 [Left Arm] O2 Sat by Pulse 98 Oximetry (%) GENERAL: Awake, alert, and fully oriented, in no acute distress. HEAD: Normal with no signs of trauma. No temporal wasting EYES: Extraocular movements intact, sclera anicteric, conjunctiva clear. EARS, NOSE, THROAT: Ears normal, nares patent, oropharynx clear without exudates. Moist mucous membranes. NECK: Normal range of motion, supple without lymphadenopathy, JVD, or masses. LUNGS: Posteriorly, b/l bibasilar crackles; clear ausculatation anteriorly. No wheezes. No accessory muscle use. Saturatinng >98% on RA HEART: nontachy, irregular rhythm, normal S1 and S2 without murmur, rub or gallop. Right-sided permacath ABDOMEN: Soft, nontender, not distended, no guarding, no rebound, no masses. MUSCULOSKELETAL: Normal range of motion at all joints. No bony deformities or tenderness. No CVA tenderness. UPPER EXTREMITIES: 2+ pulses, warm, well-perfused. No cyanosis. LUE with firm ropey AV graft noted. RUE AVF at a/c region with palpable thrill, bruit w/ auscultation. LOWER EXTREMITIES: 2+ pulses, warm, well-perfused. No calf tenderness. 1+ p itting edema to mid anterior tibia NEUROLOGICAL: Normal speech. Normal strength in BUE and BLE SKIN: Warm, dry, normal turgor, no rashes or lesions noted, normal capillary refill. Laboratory Results - last 24 hr 03/23/20 03/23/20 03/23/20 03:30 03:30 03:30 WBC 7.4 RBC 3.65 Hgb 12.5 Hct 37.7 MCV 103.3 H MCH 34.2 H MCHC 33.1 RDW 14.4 Plt Count 113 L MPV 11.5 H Absolute Neuts (auto) 5.5 Neutrophils % 73.3 Lymphocytes % 15.6 Monocytes % 7.8 Eosinophils % 2.6 Basophils % 0.7 Nucleated RBC % 0 PT with INR 17.20 H INR 1.45 H PTT (Actin FS) 33.7 Sodium 136 Potassium 3.9 Chloride 100 Carbon Dioxide 23 Anion Gap 13 BUN 28.3 H Creatinine 3.0 H Est GFR (CKD-EPI)AfAm 15.33 Est GFR (CKD-EPI)NonAf 13.22 Random Glucose 113 H Calcium 8.6 Magnesium 1.9 Total Bilirubin 0.5 AST 20 ALT 36 Alkaline Phosphatase 113 Creatine Kinase 60 Troponin I 0.06 H B-Natriuretic Peptide 70453.4 H Total Protein 6.8 Albumin 3.8 ASSESSMENT/PLAN: 89F w/ pmh of congenital atrophic kidney, ESRD on M/W/F HD(since 2ys, doesnt know dry weight), makes a few cups of urine daily, HFrEF(LVEF 15%), CAD s/p PCI, AFIB on Eliquis, NIDDM(now off meds), h/o R partial mastectomy(5ys prior), BIBA for SOB. States that she has been having trouble taking a deep breath x1d. Worse breathing when lying supine. Phyiscal exam notable for irreg rhythm, bibasilar crackles, 1+ pitting edema of lower legs. Was on 4L supplemental O2 evening of ED presentation, but has been off. Labwork notable for elevated troponin(0.06), and BNP > 75k. ED was reporting incomplete HD, stating that pt only had 1.5L of the goal 3L removed. Recommended admission for CHFe 2/2 to incomplete HD. Clarification with Niurka and patient, noted completed HD with goal weight of 73.8kg acheived; removing 1.5L over 3hs. Pt admitted for CHFe. NephroKhari) consulted for possible inpatient HD. #CHF exacerbation --possibly need to reestablish goal dry weight > BNP 75,318.4 > CXR(03/22/20): bibasilar pulmonary pleural changes persist > Echo(12/18/19): LVEF 15-20%, severe global hypokinesis of LV. Moderate TR > TSH --pending - diuresis via: --HD? --cw home torsemide(20mg BID) - cw metoprolol tartrate 100mg QD - Entresto is taken on days NOT on HD - Cardio consult(Cabrera Brandon): --recs pending - Nephro consult(Genesis): --recs pending --considering PM HD #hypoxic respiratory distress --resolved - undocumented hypoxia that prompted 4L NC - continue with diuresis #prolonged QTc > QTc 536 - avoid QTc prolonging drugs #elevated troponin --likely insignificant in the context of ESRD and absence of CP > troponin 0.06, 0.05 - monitor on Tele #chronic Afib > CHADVASC 6 > EKG: Afib, VR 79, QTc 536 - cw home Eliquis #macrocytosis > H/H 12.5/97.7(MCV 103.3) - fu B12, Folate #ESRD --last HD was 03/22/20 w/o any reported difficulties > current outpt goal weight ~74kg > BUN/Cr 28.3/ 3.0 - possible HD as inpt --TBD by Nephro FEN - no mIVF - renal-sodium diet DVT PPX - cw home Eliquis Family Medical History Family History: Unremarkable (pt is unfamiliar with her FH, as records are in [place]) Family Hx Cardiac Disorders: Son (HTN of multiple sons) Visit type - Medication Review Med list reviewed for High Risk Meds patients 65 and older: Yes - Emergency Visit Emergency Visit: Yes ED Registration Date: 03/23/20 Care time: The patient presented to the Emergency Department on the above date and was hospitalized for further evaluation of their emergent condition. - New Patient This patient is new to me today: Yes Date on this admission: 03/23/20 - Critical Care Critical Care patient: No ATTENDING PHYSICIAN STATEMENT I saw and evaluated the patient. I reviewed the resident's note and discussed the case with the resident. I agree with the resident's findings and plan as documented. SUBJECTIVE: OBJECTIVE: ASSESSMENT AND PLAN:
--- NOTE | 2020-03-23 10:50 | PN ---
Teaching Attending Note Name of Resident: Salty Vilchis ATTENDING PHYSICIAN STATEMENT I saw and evaluated the patient. I reviewed the resident's note and discussed the case with the resident. I agree with the resident's findings and plan as documented. SUBJECTIVE: 89 year old female with known history of congenital atrophic kidney, ESRd on HD M/W/F at [facility], last dialysis was 03/22/20, HFrEF(LVEF 15%), CAD s/p PCI, AFIB on Eliquis, NIDDM, history of right partial mastectomy (5ys prior), ambulate with aid of walker, lives at [facility] who presents to the ED by ambulance for SOB. States that she has been having trouble taking a deep breath. Worse breathing when lying supine. At the ED work up showed BNP 75,318.4, CXR showed bibasilar pulmonary pleural changes persisting. ASSESSMENT AND PLAN: 1. SOB likely secondeary to acute on chronic systolic CHF 2. ESRD on HD 3. NIDDM 4. Afib - cont eliquis 5. DVT prophylaxis - on eliquis (#4) DW Dr Loli Vilchis and agree with exam, assessment and plans of care.
[2020-03-23] MEDS ORDERED: APIXABAN 2.5 MG TABLET ONE (11:12)
[2020-03-23] MEDS ORDERED: METOPROLOL TARTRATE 50 MG TABLET (FP) ONE (11:13)
[2020-03-23] MEDS ORDERED: LEVOTHYROXINE NA 25 MCG TABLET (FP) ONE (11:13)
[2020-03-23] MEDS: APIXABAN 2.5 MG TABLET PO SCH ×2 (11:19→21:26)
[2020-03-23] MEDS: METOPROLOL TARTRATE 50 MG TABLET (FP) PO SCH (11:19)
[2020-03-23] MEDS: LEVOTHYROXINE NA 25 MCG TABLET (FP) PO SCH (11:19)
--- NOTE | 2020-03-23 11:51 | CON.CARD ---
Consult Consult Specialty:: Cardiology Referred by:: Hospitalist Reason for Consultation:: Cardiac evaluation - History of Present Illness Chief Complaint: Abdominal discomfort History of Present Illness: Patient is an 89 year old female with underlying history of dilated cardiomyopathy, HFrEF (LVEF 15-20%), CAD s/p PCI, angina pectoris, AF on anticoagulation/Eliquis, NIDDM, ESRD on HD (M/W/F) who presented with abdominal discomfort and shortness of breath. She denies chest pain or palpitations. She denies fever or chills. She denies nausea or diarrhea. She denies headache or lightheadedness. - History Source History Provided By: Patient, Significant Other Limitations to Obtaining History: No Limitations - Past Medical History Cardio/Vascular: Yes: AFIB, CAD (s/p stents around 20 years ago ), CHF, HTN, Hyperlipdemia Renal/: Yes: Renal Failure, Cancer, Hemodialysis ...LMP: 06/20/90 Musculoskeletal: Yes: Osteoarthritis Endocrine: Yes: Diabetes Mellitus - Past Surgical History Past Surgical History: Yes: AV Fistula/Graft (Left arm), Mastectomy (partial R sided ), Stent - Alcohol/Substance Use Hx Alcohol Use: No History of Substance Use: reports: None - Smoking History Smoking history: Never smoked Have you smoked in the past 12 months: No Aproximately how many cigarettes per day: 0 - Social History Usual Living Arrangement: Alone ADL: Independent History of Recent Travel: No Home Medications - Allergies Allergies/Adverse Reactions: Allergies Allergy/AdvReac Type Severity Reaction Status Date / Time metronidazole [From Flagyl] Allergy Severe Swelling Verified 03/23/20 02:53 - Home Medications Home Medications: Ambulatory Orders Atorvastatin Ca [Lipitor] 40 mg PO HS 03/19/14 Levothyroxine [Synthroid -] 25 mcg PO DAILY 02/13/18 Apixaban [Eliquis] 2.5 mg PO BID #60 tablet 10/02/18 Sevelamer HCl 800 mg PO TID 08/01/19 Sacubitril/Valsartan [Entresto 24 mg-26 mg Tablet] 1 each PO SUTUTHSA 01/27/20 Torsemide 20 mg PO BID 03/20/20 Metoprolol Tartrate 100 mg PO DAILY 03/23/20 Review of Systems - Review of Systems Constitutional: denies: Chills, Fever Cardiovascular: reports: Shortness of Breath. denies: Chest Pain, Palpitations Respiratory: reports: SOB. denies: Cough, Hemoptysis, Orthopnea, PND, Wheezing Gastrointestinal: reports: Abdominal Pain. denies: Constipation, Diarrhea, Melena, Nausea, Rectal Bleeding, Vomiting Neurological: denies: Dizziness, Headache, Seizure, Syncope Vital Signs: Vital Signs Temperature 97.3 F L 03/23/20 06:08 Pulse Rate 102 H 03/23/20 09:07 Respiratory Rate 22 H 03/23/20 09:07 Blood Pressure 112/62 03/23/20 09:07 O2 Sat by Pulse Oximetry (%) 98 03/23/20 09:07 Neck: Yes: Supple Respiratory: Yes: CTA Bilaterally Gastrointestinal: Yes: Normal Bowel Sounds, Soft. No: Tenderness Cardiovascular: Yes: Pulse Irregular JVD: No PMI: Non-Displaced Heart Sounds: Yes: S1, S2 Edema: No - Other Data Labs, Other Data: CBC, BMP 03/23/20 03:30 03/23/20 03:30 INR, PTT INR 1.45 (0.83-1.09) H 03/23/20 03:30 Troponin, BNP 03/23/20 03/23/20 03:30 09:15 Troponin I 0.06 H 0.05 B-Natriuretic Peptide 77907.4 H Laboratory Results - last 24 hr 03/23/20 03/23/20 03/23/20 03:30 03:30 03:30 WBC 7.4 RBC 3.65 Hgb 12.5 Hct 37.7 MCV 103.3 H MCH 34.2 H MCHC 33.1 RDW 14.4 Plt Count 113 L MPV 11.5 H Absolute Neuts (auto) 5.5 Neutrophils % 73.3 Lymphocytes % 15.6 Monocytes % 7.8 Eosinophils % 2.6 Basophils % 0.7 Nucleated RBC % 0 PT with INR 17.20 H INR 1.45 H PTT (Actin FS) 33.7 Sodium 136 Potassium 3.9 Chloride 100 Carbon Dioxide 23 Anion Gap 13 BUN 28.3 H Creatinine 3.0 H Est GFR (CKD-EPI)AfAm 15.33 Est GFR (CKD-EPI)NonAf 13.22 Random Glucose 113 H Calcium 8.6 Magnesium 1.9 Total Bilirubin 0.5 AST 20 ALT 36 Alkaline Phosphatase 113 Creatine Kinase 60 Troponin I 0.06 H B-Natriuretic Peptide 02069.4 H Total Protein 6.8 Albumin 3.8 Vitamin B12 692 Serum Folate > 100 H Urine Color Urine Appearance Urine pH Ur Specific [place] Urine Protein Urine Glucose (UA) Urine Ketones Urine Blood Urine Nitrite Urine Bilirubin Urine Urobilinogen Ur Leukocyte Esterase Urine WBC (Auto) Urine RBC (Auto) U Pathogenic Cast Auto U Epithel Cells (Auto) Blood Type Antibody Screen Atrial fibrillation with LBBB Imaging - Results Chest X-ray: Report Reviewed (Bibasilar pleural changes) EKG: Report Reviewed Problem List - Problems (1) ESRD (end stage renal disease) on dialysis Code(s): N18.6 - END STAGE RENAL DISEASE; Z99.2 - DEPENDENCE ON RENAL DIALYSIS (2) Pleural effusion Code(s): J90 - PLEURAL EFFUSION, NOT ELSEWHERE CLASSIFIED (3) Shortness of breath Code(s): R06.02 - SHORTNESS OF BREATH (4) Acute on chronic diastolic heart failure Code(s): I50.33 - ACUTE ON CHRONIC DIASTOLIC (CONGESTIVE) HEART FAILURE (5) Acute on chronic systolic and diastolic heart failure, NYHA class 3 Code(s): I50.43 - ACUTE ON CHRONIC COMBINED SYSTOLIC AND DIASTOLIC HRT FAIL (6) Uarzc-is-fgimexa kidney injury Code(s): N17.9 - ACUTE KIDNEY FAILURE, UNSPECIFIED; N18.9 - CHRONIC KIDNEY DISEASE, UNSPECIFIED Qualifiers: Acute renal failure type: unspecified (7) Anemia Code(s): D64.9 - ANEMIA, UNSPECIFIED Qualifiers: Anemia type: due to chronic kidney disease Chronic kidney disease stage: on chronic dialysis Qualified Code(s): N18.6 - End stage renal disease; D63.1 - Anemia in chronic kidney disease; Z99.2 - Dependence on renal dialysis (8) Aortic stenosis, moderate Code(s): I35.0 - NONRHEUMATIC AORTIC (VALVE) STENOSIS (9) Demand ischemia Code(s): I24.8 - OTHER FORMS OF ACUTE ISCHEMIC HEART DISEASE (10) Diabetes mellitus Code(s): E11.9 - TYPE 2 DIABETES MELLITUS WITHOUT COMPLICATIONS Qualifiers: Diabetes mellitus type: type 2 Diabetes mellitus supervisor long goods insulin use: without supervisor long goods use Diabetes mellitus complication status: with kidney complications Diabetes mellitus complication detail: with chronic kidney disease Chronic kidney disease stage: stage 4 (severe) Qualified Code(s): E11.22 - Type 2 diabetes mellitus with diabetic chronic kidney disease; N18.4 - Chronic kidney disease, stage 4 (severe) (11) Diverticulitis Code(s): K57.92 - DVTRCLI OF INTEST, PART UNSP, W/O PERF OR ABSCESS W/O BLEED (12) HLD (hyperlipidemia) Code(s): E78.5 - HYPERLIPIDEMIA, UNSPECIFIED Qualifiers: Hyperlipidemia type: pure hypercholesterolemia Qualified Code(s): E78.00 - Pure hypercholesterolemia, unspecified; E78.0 - Pure hypercholesterolemia (13) HTN (hypertension) Code(s): I10 - ESSENTIAL (PRIMARY) HYPERTENSION Qualifiers: Hypertension type: renovascular hypertension Qualified Code(s): I15.0 - Re novascular hypertension (14) Paroxysmal atrial fibrillation with rapid ventricular response Code(s): I48.0 - PAROXYSMAL ATRIAL FIBRILLATION Assessment/Plan 1. Abdominal discomfort, ?etiology ?Diverticular disease 2. Dilated cardiomyopathy, HFrEF 3. HTN 4. Hypercholesterolemia 5. CAD s/p PCI/stent, angina pectoris 6. Aortic valve disease - /AR 7. ESRD on HD 8. NIDDM 9. Hypothyroidism 10. AF on DOAC/Eliquis 11. Demand ischemia PLAN: 1. Continue Eliquis 2.5 mg BID 2. Entresto 24/26 mg BID and Metoprolol Tartrate 100 mg BID 3. Torsemide 20 mg BID 4. Atorvastatin 40 mg QHS 5. Conservative cardiac management without further intervention 6. Continue Protonix 7. HD as per Renal 8. Trend troponin Further plans are to follow Cabrera Brandon MD
[2020-03-23] MEDS: SEVELAMER CARBONATE 800 MG TAB (FP) PO SCH ×2 (12:55→18:31)
[2020-03-23] MEDS: TORSEMIDE 20 MG TABLET (FP) PO SCH (13:10)
[2020-03-23 14:10] LABS: URINE APPEARANCE Clear; URINE BILIRUBIN Negative (NEGATIVE); URINE COLOR Yellow; URINE GLUCOSE (UA) Negative (NEGATIVE); URINE KETONE Negative (NEGATIVE); URINE LEUK ESTERASE Negative (NEGATIVE); URINE NITRITE Negative (NEGATIVE); URINE PROTEIN 1+ (NEGATIVE); URINE UROBILINOGEN 0.2 mg/dL (0.2-1.0)
[2020-03-23] MEDS ORDERED: FAMOTIDINE 20 MG TABLET PO ONE (14:40)
[2020-03-23 16:09] LABS: EPI CELLS 5 /uL (0-25.1); URINE RBC 1 /uL (0-23.9); URINE WBC 0 /uL (0-25.8)
--- NOTE | 2020-03-23 17:21 | CON.NEP ---
Consult Consult Specialty:: Nephrology Referred by:: Medicine Reason for Consultation:: Shortness of breath/Fluid overload - History of Present Illness Chief Complaint: Shortness of breath History of Present Illness: This is a 89 year old woman with history of ESRD on HD (MWF) CHF with systolic dysfunction, CAD, Afib on eliquis, DM who presented from home with shortness of breath. Pt last had dialysis yesterday. She reports tolerating the dialysis well w/o complication. She reported orthopnea at home and difficulty taking a deep inspiration. Denies any chest pain, fever, chills, nausea or vomiting. She also reports upper abdominal pain in a band like pattern over her upper abdomen. She was in the ER a few days ago for the abdominal pain. - History Source History Provided By: Patient Limitations to Obtaining History: No Limitations - Past Medical History Cardio/Vascular: Yes: AFIB, CAD (s/p stents around 20 years ago ), CHF, HTN, Hyperlipdemia Renal/: Yes: Renal Failure, Cancer, Hemodialysis ...LMP: 06/20/90 Musculoskeletal: Yes: Osteoarthritis Endocrine: Yes: Diabetes Mellitus - Past Surgical History Past Surgical History: Yes: AV Fistula/Graft (Left arm), Mastectomy (partial R sided ), Stent - Alcohol/Substance Use Hx Alcohol Use: No History of Substance Use: reports: None - Smoking History Smoking history: Never smoked Have you smoked in the past 12 months: No Aproximately how many cigarettes per day: 0 - Social History Usual Living Arrangement: Alone ADL: Independent History of Recent Travel: No Home Medications - Allergies Allergies/Adverse Reactions: Allergies Allergy/AdvReac Type Severity Reaction Status Date / Time metronidazole [From Flagyl] Allergy Severe Swelling Verified 03/23/20 02:53 - Home Medications Home Medications: Ambulatory Orders Atorvastatin Ca [Lipitor] 40 mg PO HS 03/19/14 Levothyroxine [Synthroid -] 25 mcg PO DAILY 02/13/18 Apixaban [Eliquis] 2.5 mg PO BID #60 tablet 10/02/18 Sevelamer HCl 800 mg PO TID 08/01/19 Sacubitril/Valsartan [Entresto 24 mg-26 mg Tablet] 1 each PO SUTUTHSA 01/27/20 Torsemide 20 mg PO BID 03/20/20 Metoprolol Tartrate 100 mg PO DAILY 03/23/20 Family Medical History Family History: Unremarkable Family Hx Cardiac Disorders: Son (HTN of multiple sons) Review of Systems - Review of Systems Constitutional: reports: Loss of Appetite Eyes: reports: No Symptoms HENT: reports: No Symptoms Neck: reports: No Symptoms Cardiovascular: reports: Shortness of Breath. denies: Chest Pain, Edema, Palp itations Respiratory: reports: Orthopnea, SOB, SOB on Exertion. denies: Exercise Intolerance, Hemoptysis, Wheezing, Other Gastrointestinal: reports: Abdominal Pain, Bloating. denies: Constipation, Diarrhea, Nausea, Vomiting Genitourinary: reports: No Symptoms Musculoskeletal: reports: No Symptoms Neurological: reports: No Symptoms Endocrine: reports: No Symptoms Nephrology Consult - Height Height: 5 ft 3 in - Weight Weight: 106.594 kg - BMI Body Mass Index (BMI): 41.6 - Lab Results CBC,BMP: CBC, BMP 03/23/20 03:30 03/23/20 03:30 Anion Gap: Anion Gap Anion Gap 13 MMOL/L (8-16) 03/23/20 03:30 - Imaging Chest X-ray: Report Reviewed, Image Reviewed - Physical Examination Vital Signs: Vital Signs Temperature 98.2 F 03/23/20 15:00 Pulse Rate 78 03/23/20 16:40 Respiratory Rate 18 03/23/20 16:40 Blood Pressure 121/70 03/23/20 16:40 O2 Sat by Pulse Oximetry (%) 98 03/23/20 09:07 Constitutional: Yes: No Distress, Calm Eyes: Yes: Conjunctiva Clear HENT: Yes: Atraumatic, Normocephalic Neck: Yes: Supple Cardiovascular: Yes: Regular Rate and Rhythm Respiratory: Yes: Regular, Diminished, On Nasal O2, SOB. No: Rhonchi Gastrointestinal: Yes: Soft. No: Ascites, Distention, Palpable Mass, Pulsatile Mass, Tenderness, Vomiting Access for Hemodialysis: AV Fistula Extremities: No: Cold, Cool, Cyanosis Edema: No Neurological: Yes: Alert, Oriented Assessment/Plan 89 year old woman with history of ESRD on HD (MWF) CHF with systolic dysfunction, CAD, Afib on eliquis, DM who presented from home with shortness of breath. 1. Shortness of breath with pleural effusions/CHF 2. ESRD on HD 3. Systolic HF 4. Abdominal pain 5. CAD 6. Atrial fibrillation on Eliquis 7. DM Pt tolerating isolated UF with goal UF target of 2L today. Will plan additional dialysis tomorrow with UF as tolerated. Renal diet, 1.2L fluid restriction daily. Will order oral PPI for abdominal discomfort, if not resolved would consider imaging studies of the abdomen. Cardiology evaluation. Thank you Will follow Miguel Ramirez DO
[2020-03-23] MEDS: PANTOPRAZOLE 40 MG TABLET PO SCH (17:23)
[2020-03-23] MEDS: ATORVASTATIN CA 40 MG TABLET (FP) PO SCH (21:26)
[2020-03-24] MEDS: MELATONIN 5 MG TABLETS PO ONE ×2 (00:40→03:43)
[2020-03-24] MEDS: LEVOTHYROXINE NA 25 MCG TABLET (FP) PO SCH (06:10)
[2020-03-24] MEDS: TORSEMIDE 20 MG TABLET (FP) PO SCH ×2 (06:10→15:10)
[2020-03-24] MEDS: SEVELAMER CARBONATE 800 MG TAB (FP) PO SCH ×2 (08:05→15:03)
[2020-03-24 08:31] LABS: BLOOD UREA NITROGEN 42.1 mg/dL (7-18); CALCIUM 8.8 mg/dL (8.5-10.1); MAGNESIUM 2.1 mg/dL (1.8-2.4); PHOSPHOROUS 4.5 mg/dL (2.5-4.9); POTASSIUM 4.5 mmol/L (3.5-5.1)
--- NOTE | 2020-03-24 09:39 | PN ---
Progress Note, Physician History of Present Illness: Seen in HD resting comfortably. - Current Medication List Current Medications: Active Medications Apixaban (Eliquis -) 2.5 mg PO BID [facility] Last Admin: 03/23/20 21:26 Dose: 2.5 mg Documented by: Atorvastatin Calcium (Lipitor -) 40 mg PO HS [facility] Last Admin: 03/23/20 21:26 Dose: 40 mg Documented by: Sodium Chloride (Normal Saline -) 250 mls @ 3,000 mls/hr IV PRN PRN PRN Reason: Hypotension during Dialysis Stop: 03/24/20 09:18 Sodium Chloride (Normal Saline -) 250 mls @ 3,000 mls/hr IV PRN PRN PRN Reason: Hypotension during Dialysis Stop: 03/24/20 17:22 Levothyroxine Sodium (Synthroid -) 25 mcg PO 0700 [facility] Last Admin: 03/24/20 06:10 Dose: 25 mcg Documented by: Metoprolol Tartrate (Lopressor -) 100 mg PO DAILY [facility] Last Admin: 03/23/20 11:19 Dose: 100 mg Documented by: Pantoprazole Sodium (Protonix -) 40 mg PO DAILY [facility] Last Admin: 03/23/20 17:23 Dose: 40 mg Documented by: Sacubitril/Valsartan (Entresto 24 Mg-26 Mg Tablet) 1 tab PO SUTUTHSA [facility] Sevelamer Carbonate (Renvela -) 800 mg PO TIDCM [facility] Last Admin: 03/24/20 08:05 Dose: 800 mg Documented by: Torsemide (Demadex -) 20 mg PO BIDLASIX [facility] Last Admin: 03/24/20 06:10 Dose: 20 mg Documented by: - Objective Vital Signs: Vital Signs Temperature 96.6 F L 03/24/20 06:00 Pulse Rate 87 03/24/20 06:00 Respiratory Rate 20 03/24/20 06:00 Blood Pressure 116/70 03/24/20 06:00 O2 Sat by Pulse Oximetry (%) 96 03/24/20 02:00 Constitutional: Yes: No Distress, Calm Neck: Yes: Supple Cardiovascular: Yes: Pulse Irregular Respiratory: Yes: Regular, Diminished Gastrointestinal: Yes: Soft, Hypoactive Bowel Sounds Edema: No Labs: CBC, BMP 03/23/20 03:30 03/24/20 06:38 INR, PTT INR 1.45 (0.83-1.09) H 03/23/20 03:30 Problem List - Problems (1) ESRD (end stage renal disease) on dialysis Code(s): N18.6 - END STAGE RENAL DISEASE; Z99.2 - DEPENDENCE ON RENAL DIALYSIS (2) Pleural effusion Code(s): J90 - PLEURAL EFFUSION, NOT ELSEWHERE CLASSIFIED (3) Shortness of breath Code(s): R06.02 - SHORTNESS OF BREATH (4) Acute on chronic systolic and diastolic heart failure, NYHA class 3 Code(s): I50.43 - ACUTE ON CHRONIC COMBINED SYSTOLIC AND DIASTOLIC HRT FAIL (5) Chronic anticoagulation Code(s): Z79.01 - SENIOR CARE (CURRENT) USE OF ANTICOAGULANTS (6) Diabetes mellitus Code(s): E11.9 - TYPE 2 DIABETES MELLITUS WITHOUT COMPLICATIONS Qualifiers: Diabetes mellitus type: type 2 Diabetes mellitus intermediate card tender insulin use: without intermediate card tender use Diabetes mellitus complication status: with kidney complications Diabetes mellitus complication detail: with chronic kidney disease Chronic kidney disease stage: stage 4 (severe) Qualified Code(s): E11.22 - Type 2 diabetes mellitus with diabetic chronic kidney disease; N18.4 - Chronic kidney disease, stage 4 (severe) (7) HLD (hyperlipidemia) Code(s): E78.5 - HYPERLIPIDEMIA, UNSPECIFIED Qualifiers: Hyperlipidemia type: pure hypercholesterolemia Qualified Code(s): E78.00 - Pure hypercholesterolemia, unspecified; E78.0 - Pure hypercholesterolemia (8) HTN (hypertension) Code(s): I10 - ESSENTIAL (PRIMARY) HYPERTENSION Qualifiers: Hypertension type: renovascular hypertension Qualified Code(s): I15.0 - Renovascular hypertension (9) Paroxysmal atrial fibrillation with rapid ventricular response Code(s): I48.0 - PAROXYSMAL ATRIAL FIBRILLATION Assessment/Plan Lexiscan MPI: 04/03/2018 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 Shortness of breath with pleural effusions 2/2 acute on chronic systolic heart failure 2. Dilated cardiomyopathy, HFrEF 3. Abdominal discomfort, ?etiology ?Diverticular disease 4. HTN 5. Hypercholesterolemia 6. CAD s/p PCI/stent, angina pectoris 7. Aortic valve disease - /AR 8. ESRD on HD 9. NIDDM 10. Hypothyroidism 11. AF on DOAC/Eliquis 12. Demand ischemia PLAN: 1. Continue Eliquis 2.5 mg BID 2. Entresto 24/26 mg BID and change Metoprolol Tartrate 100 mg QD to Toprol XL 100 qd 3. Torsemide 20 mg BID 4. Atorvastatin 40 mg QHS 5. Conservative cardiac management without further intervention 6. Continue Protonix 7. HD and UF per Renal 8. Troponin downtrending
[2020-03-24] MEDS: APIXABAN 2.5 MG TABLET PO SCH ×2 (09:46→22:09)
[2020-03-24] MEDS: PANTOPRAZOLE 40 MG TABLET PO SCH (09:46)
[2020-03-24 11:19] LABS: HEMATOCRIT 35.4 % (32.4-45.2); HEMOGLOBIN 11.7 GM/dL (10.7-15.3); MCH 34.2 pg (25.7-33.7); MCHC 33.1 g/dl (32.0-36.0); MEAN CELL VOLUME 103.2 fl (80-96); MEAN PLT VOLUME 11.7 fl (7.5-11.1); PLATELET COUNT 105 K/MM3 (134-434); RBC 3.43 M/mm3 (3.60-5.2); RDW 14.5 % (11.6-15.6); WHITE BLOOD COUNT 7.1 K/mm3 (4.0-10.0)
--- NOTE | 2020-03-24 14:23 | PN ---
Teaching Attending Note Name of Resident: Rayshawn Jaeger ATTENDING PHYSICIAN STATEMENT I saw and evaluated the patient. I reviewed the resident's note and discussed the case with the resident. I agree with the resident's findings and plan as documented. SUBJECTIVE: seen around 10 am No fever or chills. no SOB at that time. no CP . she felt better . reported BM this am that was very hard. after which she had some relief of her adb discomfort. she still has some abnormal feeling in epigastric area , that is intermittent and some times has fullness after food. OBJECTIVE: NAD , MMM, Cv : RRR, no MRg , + JVD Lungs: bibasilar crackles Ext: trace edema Abd: soft, NT, ND , NL BS . ASSESSMENT AND PLAN: 89 y/o lady with h/o congenital atrophic kidney, ESRd on HD M/W/F , dilated CM , HFrEF(LVEF 15%), CAD s/p PCI, HLP, , AR , AFIB on Eliquis, NIDDM, history of right partial mastectomy who presented with SOB . she was found to have acute on chronic systolic heart failure 1- Acute on chronic systolic CHF. 2- h/o ESRD 3- h/o DM Now A1c of 6 4- h/o HTN 5- Abdominal discomfort 6- constipation plan : - cont demadex - cont volume management with HD - cont enteresto - cont AC - abd pain , could be due to constipation , but with early satiety and fullness in epigastric area, will get upper GI series. if neg , can get CT scan - treat constipation with Bowel regimen
--- NOTE | 2020-03-24 14:59 | PN ---
Progress Note, Physician Chief Complaint: Shortness of breath History of Present Illness: Seen and examined at the bedside awake and alert s/p dialysis earlier today with 2L UF tolerated HD well SOB is resolved Abd discomfort is improved has mall BM earlier today no N/V, fever or chills - Current Medication List Current Medications: Active Medications Apixaban (Eliquis -) 2.5 mg PO BID [facility] Last Admin: 03/24/20 09:46 Dose: 2.5 mg Documented by: Atorvastatin Calcium (Lipitor -) 40 mg PO HS [facility] Last Admin: 03/23/20 21:26 Dose: 40 mg Documented by: Docusate Sodium (Colace -) 100 mg PO DAILY [facility] Sodium Chloride (Normal Saline -) 250 mls @ 3,000 mls/hr IV PRN PRN PRN Reason: Hypotension during Dialysis Stop: 03/24/20 09:18 Sodium Chloride (Normal Saline -) 250 mls @ 3,000 mls/hr IV PRN PRN PRN Reason: Hypotension during Dialysis Stop: 03/24/20 17:22 Levothyroxine Sodium (Synthroid -) 25 mcg PO 0700 [facility] Last Admin: 03/24/20 06:10 Dose: 25 mcg Documented by: Metoprolol Succinate (Toprol Xl -) 100 mg PO DAILY [facility] Pantoprazole Sodium (Protonix -) 40 mg PO DAILY [facility] Last Admin: 03/24/20 09:46 Dose: 40 mg Documented by: Polyethylene Glycol (Miralax (For Daily Use) -) 17 gm PO BID [facility] Sacubitril/Valsartan (Entresto 24 Mg-26 Mg Tablet) 1 tab PO BID [facility] Senna/Docusate Sodium (Pericolace -) 1 tablet PO BID [facility] Sevelamer Carbonate (Renvela -) 800 mg PO TIDCM [facility] Last Admin: 03/24/20 08:05 Dose: 800 mg Documented by: Torsemide (Demadex -) 20 mg PO BIDLASIX [facility] Last Admin: 03/24/20 06:10 Dose: 20 mg Documented by: - Objective Vital Signs: Vital Signs Temperature 97.6 F 03/24/20 14:00 Pulse Rate 81 03/24/20 14:00 Respiratory Rate 20 03/24/20 14:00 Blood Pressure 120/58 L 03/24/20 14:00 O2 Sat by Pulse Oximetry (%) 96 03/24/20 02:00 Constitutional: Yes: No Distress, Calm HENT: Yes: Atraumatic Neck: Yes: Supple Cardiovascular: Yes: Regular Rate and Rhythm Respiratory: Yes: Regular, CTA Bilaterally Gastrointestinal: Yes: Soft Extremities: No: Cyanosis Edema: No Neurological: Yes: Alert, Oriented Labs: CBC, BMP 03/24/20 10:10 03/24/20 06:38 INR, PTT INR 1.45 (0.83-1.09) H 03/23/20 03:30 Assessment/Plan 89 year old woman with history of ESRD on HD (MWF) CHF with systolic dysfunction, CAD, Afib on eliquis, DM who presented from home with shortness of breath. 1. Shortness of breath with pleural effusions/CHF 2. ESRD on HD 3. Systolic HF 4. Abdominal pain 5. CAD 6. Atrial fibrillation on Eliquis 7. DM Tolerated dialysis earlier today with 2L UF. Next planned dialysis is Sunday continue renal diet and 1.2L fluid restriction. Respiratory status is improved will require dry weight adjustment as an outpatient Continue work up and management of abdominal discomfort as per primary team Miguel Ramirez DO
[2020-03-24] MEDS: METOPROLOL TARTRATE 50 MG TABLET (FP) PO SCH (15:04)
[2020-03-24] MEDS: POLYETHYLENE GLYCOL 3350 119 GM BTL PO SCH ×2 (15:09→22:10)
[2020-03-24] MEDS: DOCUSATE SODIUM 100 MG CAPSULE (FP) PO SCH (15:09)
--- NOTE | 2020-03-24 17:29 | PN ---
Physical Exam: SUBJECTIVE: Patient seen and examined at bedside. The patient reports constipation, dullness in the left side of her abdomen, fatigue, a feeling sometimes that she might throw up if she eats, and leg cramps. She says that she gets leg cramps sometimes after dialysis. The patient states that she had 2 small bowel movements of hard stool in the morning. She denies shortness of breath, fever/chills, cough, sore throat, headache, numbness, and balance difficulties. A manual disimpaction was attempted in the afternoon. No hemorrhoids or a bnormalities was palpated during the manual disimpaction. The rectum felt empty, no hard stool was palpated inside, and no stool was able to be removed. The patient was re-examined after dialysis. Breath sounds sounded better than in the morning. Legs had mild edema. No JVD. OBJECTIVE: Vital Signs Period Temp Pulse Resp BP Sys/Dan Pulse Ox Last 24 Hr 96.6 F-98.5 F 59-89 18-20 84-122/50-74 96-100 GENERAL: The patient is awake, alert, and fully oriented, in no acute distress. HEAD: Normal with no signs of trauma. EYES: PERRL, extraocular movements intact. No ptosis. ENT: Ears normal, nares patent, oropharynx clear without exudates, moist mucous membranes. No posterior throat erythema. NECK: Trachea midline, full range of motion, supple. LUNGS: Good, non-decreased, breath sounds bilaterally with mild crackles worse in the bases. HEART: Regular rate and rhythm, S1, S2. Soft systolic murmur. ABDOMEN: Soft, nontender, distended, hypoactive bowel sounds, no guarding, no rebound, no masses. EXTREMITIES: 2+ pulses, warm, well-perfused, mild leg edema. NEUROLOGICAL: Cranial nerves II through XII grossly intact. Normal speech, gait not observed. 5/5 muscle strength bilaterally in lower extremities. No numbness in lower extremities bilaterally. PSYCH: Normal mood, normal affect. SKIN: Warm, dry, normal turgor, no rashes or lesions noted Laboratory Results - last 24 hr 03/23/20 03/24/20 03/24/20 03:50 06:38 10:10 WBC 7.1 RBC 3.43 L Hgb 11.7 Hct 35.4 MCV 103.2 H MCH 34.2 H MCHC 33.1 RDW 14.5 Plt Count 105 L MPV 11.7 H Sodium 136 Potassium 4.5 Chloride 102 Carbon Dioxide 19 L Anion Gap 14 BUN 42.1 H Creatinine 4.0 H Est GFR (CKD-EPI)AfAm 10.82 Est GFR (CKD-EPI)NonAf 9.34 Random Glucose 114 H Hemoglobin A1c % Calcium 8.8 Phosphorus 4.5 Magnesium 2.1 Troponin I 0.04 TSH 3.49 COVID-19 ([facility]) Not detected 03/24/20 10:10 WBC RBC Hgb Hct MCV MCH MCHC RDW Plt Count MPV Sodium Potassium Chloride Carbon Dioxide Anion Gap BUN Creatinine Est GFR (CKD-EPI)AfAm Est GFR (CKD-EPI)NonAf Random Glucose Hemoglobin A1c % 6.0 Calcium Phosphorus Magnesium Troponin I TSH COVID-19 ([facility]) Active Medications Generic Name Dose Route Start Last Admin Trade Name Freq PRN Reason Stop Dose Admin Apixaban 2.5 mg 03/23/20 10:30 03/24/20 09:46 Eliquis - PO 2.5 mg BID [facility] Administration Atorvastatin Calcium 40 mg 03/23/20 22:00 03/23/20 21:26 Lipitor - PO 40 mg HS [facility] Administration Docusate Sodium 100 mg 03/24/20 12:45 03/24/20 15:09 Colace - PO 100 mg DAILY [facility] Administration Sodium Chloride 250 mls @ 3,000 mls/hr 03/23/20 09:18 Normal Saline - IV 03/24/20 09:18 PRN PRN Hypotension during Dialysis Sodium Chloride 250 mls @ 3,000 mls/hr 03/23/20 17:21 Normal Saline - IV 03/24/20 17:22 PRN PRN Hypotension during Dialysis Levothyroxine Sodium 25 mcg 03/23/20 10:30 03/24/20 06:10 Synthroid - PO 25 mcg 0700 [facility] Administration Metoprolol Succinate 100 mg 03/25/20 10:00 Toprol Xl - PO DAILY [facility] Pantoprazole Sodium 40 mg 03/23/20 16:30 03/24/20 09:46 Protonix - PO 40 mg DAILY [facility] Administration Polyethylene Glycol 17 gm 03/24/20 12:45 03/24/20 15:09 Miralax (For Daily Use) - PO 17 grams BID [facility] Administration Sacubitril/Valsartan 1 tab 03/24/20 22:00 Entresto 24 Mg-26 Mg Tablet PO BID [facility] Senna/Docusate Sodium 1 tablet 03/24/20 22:00 Pericolace - PO BID [facility] Sevelamer Carbonate 800 mg 03/23/20 12:00 03/24/20 15:03 Renvela - PO Not Given TIDCM [facility] Torsemide 20 mg 03/23/20 14:00 03/24/20 15:10 Demadex - PO 20 mg BIDLASIX [facility] Administration ASSESSMENT/PLAN: 89 year old female patient with past medical history that includes congenital atrophic kidney, ESRD, Hemodialysis on // schedule, CAD s/p PCI, systolic CHF, AFib on Eliquis, DM, and Right Partial Mastectomy, who presented to the emergency room with shortness of breath. 1. CHF exacerbation secondary to fluid overload secondary to incomplete fluid removal from dialysis - Patient had dialysis today and was reexamined afterwards, which showed that the patient looked improved compared to the morning. - [employer] Scoreboard Operator recommends that the next dialysis can be for Sunday with renal diet and 1.2L fluid restriction 2. Abdominal discomfort secondary to constipation vs impacted stool - Digital disimpaction attempted but unsuccessful - The patient is receiving Colace, Miralax, and Senna - Pending GI X-ray Series 3. AFib - The patient is receiving Eliquis and Metoprolol 4. DM - A1C 6.0% - Random Glucose 113 # FEN - Dialysis MWF, Monitoring Electrolytes, Sodium controlled Renal Diet DVT PPx - Eliquis Visit type - Emergency Visit Emergency Visit: Yes ED Registration Date: 03/23/20 Care time: The patient presented to the Emergency Department on the above date and was hospitalized for further evaluation of their emergent condition. - New Patient This patient is new to me today: Yes Date on this admission: 03/24/20 - Critical Care Critical Care patient: No - Discharge Referral Referred to [facility] Med [facility].C[facility] No - Medication Review Med list reviewed for High Risk Meds patients 65 and older: Yes ATTENDING PHYSICIAN STATEMENT I saw and evaluated the patient. I reviewed the resident's note and discussed the case with the resident. I agree with the resident's findings and plan as documented. SUBJECTIVE: OBJECTIVE: ASSESSMENT AND PLAN:
[2020-03-24] MEDS ORDERED: PT OWN MED DRAWER 7, Y5N ONE (20:58)
[2020-03-24] MEDS: ATORVASTATIN CA 40 MG TABLET (FP) PO SCH (22:10)
[2020-03-24] MEDS: SENNOSIDES/DOCUSATE COMBO (SENNA PLUS) TABLET (UD) PO SCH (22:10)
[2020-03-24] MEDS: SACUBITRIL/VALSARTAN 24 MG-26 MG TABLET PO SCH (22:17)
[2020-03-25] MEDS: LEVOTHYROXINE NA 25 MCG TABLET (FP) PO SCH (06:41)
[2020-03-25] MEDS: TORSEMIDE 20 MG TABLET (FP) PO SCH ×2 (06:41→14:59)
[2020-03-25 07:18] LABS: HEMATOCRIT 36.3 % (32.4-45.2); HEMOGLOBIN 11.9 GM/dL (10.7-15.3); MCH 33.6 pg (25.7-33.7); MEAN CELL VOLUME 101.9 fl (80-96); MEAN PLT VOLUME 10.6 fl (7.5-11.1); PLATELET COUNT 109 K/MM3 (134-434); RBC 3.56 M/mm3 (3.60-5.2); RDW 14.4 % (11.6-15.6); WHITE BLOOD COUNT 6.2 K/mm3 (4.0-10.0)
[2020-03-25 07:56] LABS: BLOOD UREA NITROGEN 21.2 mg/dL (7-18); POTASSIUM 3.6 mmol/L (3.5-5.1)
[2020-03-25 08:01] LABS: CALCIUM 8.4 mg/dL (8.5-10.1); CREATININE 2.9 mg/dL (0.55-1.3); PHOSPHOROUS 2.7 mg/dL (2.5-4.9)
--- NOTE | 2020-03-25 09:31 | PN ---
Progress Note, Physician History of Present Illness: Tolerated PT-assisted ambulation with walker w/o GARCIA. - Current Medication List Current Medications: Active Medications Apixaban (Eliquis -) 2.5 mg PO BID [facility] Last Admin: 03/24/20 22:09 Dose: 2.5 mg Documented by: Atorvastatin Calcium (Lipitor -) 40 mg PO HS [facility] Last Admin: 03/24/20 22:10 Dose: 40 mg Documented by: Docusate Sodium (Colace -) 100 mg PO DAILY [facility] Last Admin: 03/24/20 15:09 Dose: 100 mg Documented by: Sodium Chloride (Normal Saline -) 250 mls @ 3,000 mls/hr IV PRN PRN PRN Reason: Hypotension during Dialysis Stop: 03/24/20 09:18 Levothyroxine Sodium (Synthroid -) 25 mcg PO 0700 [facility] Last Admin: 03/25/20 06:41 Dose: 25 mcg Documented by: Metoprolol Succinate (Toprol Xl -) 100 mg PO DAILY [facility] Pantoprazole Sodium (Protonix -) 40 mg PO DAILY [facility] Last Admin: 03/24/20 09:46 Dose: 40 mg Documented by: Polyethylene Glycol (Miralax (For Daily Use) -) 17 gm PO BID [facility] Last Admin: 03/24/20 22:10 Dose: Not Given Documented by: Sacubitril/Valsartan (Entresto 24 Mg-26 Mg Tablet) 1 tab PO BID [facility] Last Admin: 03/24/20 22:17 Dose: 1 tab Documented by: Senna/Docusate Sodium (Pericolace -) 1 tablet PO BID [facility] Last Admin: 03/24/20 22:10 Dose: Not Given Documented by: Sevelamer Carbonate (Renvela -) 800 mg PO TIDCM [facility] Last Admin: 03/24/20 15:03 Dose: Not Given Documented by: Torsemide (Demadex -) 20 mg PO BIDLASIX [facility] Last Admin: 03/25/20 06:41 Dose: 20 mg Documented by: - Objective Vital Signs: Vital Signs Temperature 98.8 F 03/25/20 09:00 Pulse Rate 73 03/25/20 09:00 Respiratory Rate 20 03/25/20 09:00 Blood Pressure 119/96 03/25/20 09:00 O2 Sat by Pulse Oximetry (%) 99 03/25/20 09:00 Constitutional: Yes: No Distress, Calm Neck: Yes: Supple Cardiovascular: Yes: Regular Rate and Rhythm Respiratory: Yes: Regular, Diminished Gastrointestinal: Yes: Soft, Hypoactive Bowel Sounds Edema: No Labs: CBC, BMP 03/25/20 06:10 03/25/20 05:40 INR, PTT INR 1.45 (0.83-1.09) H 03/23/20 03:30 - ....Imaging EKG: Report Reviewed (Tele: Afib v-paced) Problem List - Problems (1) ESRD (end stage renal disease) on dialysis Code(s): N18.6 - END STAGE RENAL DISEASE; Z99.2 - DEPENDENCE ON RENAL DIALYSIS (2) Pleural effusion Code(s): J90 - PLEURAL EFFUSION, NOT ELSEWHERE CLASSIFIED (3) Shortness of breath Code(s): R06.02 - SHORTNESS OF BREATH (4) Acute on chronic systolic and diastolic heart failure, NYHA class 3 Code(s): I50.43 - ACUTE ON CHRONIC COMBINED SYSTOLIC AND DIASTOLIC HRT FAIL (5) Chronic anticoagulation Code(s): Z79.01 - OBSERVER ELECTRICAL PROSPECTING (CURRENT) USE OF ANTICOAGULANTS (6) Diabetes mellitus Code(s): E11.9 - TYPE 2 DIABETES MELLITUS WITHOUT COMPLICATIONS Qualifiers: Diabetes mellitus type: type 2 Diabetes mellitus snf insulin use: without terminal press operator use Diabetes mellitus complication status: with kidney complications Diabetes mellitus complication detail: with chronic kidney disease Chronic kidney disease stage: stage 4 (severe) Qualified Code(s): E11.22 - Type 2 diabetes mellitus with diabetic chronic kidney disease; N18.4 - Chronic kidney disease, stage 4 (severe) (7) HLD (hyperlipidemia) Code(s): E78.5 - HYPERLIPIDEMIA, UNSPECIFIED Qualifiers: Hyperlipidemia type: pure hypercholesterolemia Qualified Code(s): E78.00 - Pure hypercholesterolemia, unspecified; E78.0 - Pure hypercholesterolemia (8) HTN (hypertension) Code(s): I10 - ESSENTIAL (PRIMARY) HYPERTENSION Qualifiers: Hypertension type: renovascular hypertension Qualified Code(s): I15.0 - Renovascular hypertension (9) Paroxysmal atrial fibrillation with rapid ventricular response Code(s): I48.0 - PAROXYSMAL ATRIAL FIBRILLATION Assessment/Plan Lexiscan MPI: 04/03/2018 Myopathic myocardium with diffuse moderate global HK LVEF 41% Lexiscan MPI: 05/10/2016 Small mild anterior and inferior ischemia, LVEF 65% 10/03/[address] [facility]: Severely decreased LVEF 20%, dilated LV, normal RV size and fxn, mild MR, AE, small pericardial effusion, ANNE Echo: 09/26/2018 Normal LV size with severely decreased LV fxn, normal RV size and fxn, mild GORDON, mild MR, AR, mild-mod TR Echo: 02/15/2018 Moderately decreased LV fxn, mild LAE, mild-mod MR, mod TR RVSP 30-40 mmHg, mild-mod AR and small pericardial effusion Echo: 06/25/2015 conc LVH, with normal LV systolic function mod LOUISE 1.1 cm^2, mild TR, MR, AR 1. Shortness of breath with pleural effusions 2/2 acute on chronic systolic heart failure resolving 2. Dilated cardiomyopathy, HFrEF 3. Abdominal discomfort, ?etiology ?Diverticular disease 4. HTN 5. Hypercholesterolemia 6. CAD s/p PCI/stent, angina pectoris 7. Aortic valve disease - /AR 8. ESRD on HD 9. NIDDM 10. Hypothyroidism 11. AF on DOAC/Eliquis 12. Demand ischemia PLAN: 1. Continue Eliquis 2.5 mg BID 2. Entresto 24/26 mg BID and Toprol XL 100 qd 3. Torsemide 20 mg BID 4. Atorvastatin 40 mg QHS 5. Conservative cardiac management without further intervention 6. Continue Protonix 7. HD and UF per Renal 8. Troponin downtrending 9. F/u UGI series
[2020-03-25] MEDS: SEVELAMER CARBONATE 800 MG TAB (FP) PO SCH ×3 (10:07→17:29)
[2020-03-25] MEDS: APIXABAN 2.5 MG TABLET PO SCH ×2 (10:07→21:03)
[2020-03-25] MEDS: DOCUSATE SODIUM 100 MG CAPSULE (FP) PO SCH (10:07)
[2020-03-25] MEDS: PANTOPRAZOLE 40 MG TABLET PO SCH (10:07)
[2020-03-25] MEDS: POLYETHYLENE GLYCOL 3350 119 GM BTL PO SCH ×2 (10:08→21:02)
[2020-03-25] MEDS: SENNOSIDES/DOCUSATE COMBO (SENNA PLUS) TABLET (UD) PO SCH ×2 (10:08→21:02)
[2020-03-25] MEDS ORDERED: PT OWN MED DRAWER 7, Y5N ONE (10:11)
[2020-03-25] MEDS: SACUBITRIL/VALSARTAN 24 MG-26 MG TABLET PO SCH ×2 (10:12→21:04)
[2020-03-25] MEDS ORDERED: SACUBITRIL/VALSARTAN 24 MG-26 MG TABLET PO SCH ×2 (11:30→14:02)
[2020-03-25] MEDS ORDERED: LACTULOSE 20 GM/30 ML UDC (FOR ORAL USE ONLY) PO ONE (12:00)
--- NOTE | 2020-03-25 12:00 | PN ---
Teaching Attending Note Name of Resident: Rayshawn Jaeger ATTENDING PHYSICIAN STATEMENT I saw and evaluated the patient. I reviewed the resident's note and discussed the case with the resident. I agree with the resident's findings and plan as documented. SUBJECTIVE: no fever or chills. her epigastric discomfort in better and resolved. had 2 smal l BMs yesterday . she has no N/V. ate all meals with no problem yesterday. No CP , palpitations, or SOB OBJECTIVE: NAD, MMM, Cv: irreg irreg, 2/6 SM isheard [place] base today. Lungs: bibasilar crackles Ext: trace edema Abd: soft, NT, ND , NL BS. ASSESSMENT AND PLAN: 89 y/o lady with h/o congenital atrophic kidney, ESRd on HD M/W/F , dilated CM , HFrEF(LVEF 15%), CAD s/p PCI, HLP, , AR , AFIB on Eliquis, NIDDM, history of right partial mastectomy who presented with SOB . she was found to have acute on chronic systolic heart failure 1- Acute on chronic systolic CHF. 2- h/o ESRD 3- h/o DM Now A1c of 6 4- h/o HTN 5- Abdominal discomfort 6- Constipation plan : - cont demadex - cont volume management with HD, next one in am - cont enteresto - cont AC - tele reviewed. A fib , no events - follow upper GI series . - give more laxatives today . - If GI series is negative , will dc home to follow up with Dr. Finley ( has Apt on 04/13) dipso: possible dc later today if GI series is negative d/w her above plan
[2020-03-25] MEDS ORDERED: SODIUM CHLORIDE 250 ML IV PRN (13:12)
--- NOTE | 2020-03-25 13:12 | PN ---
Progress Note, Physician Chief Complaint: Shortness of breath History of Present Illness: Seen and examined at the bedside awake and alert has no acute complaints did not sleep well last night s/p dialysis yesterday denies any sob, cp, abdominal pain - Current Medication List Current Medications: Active Medications Apixaban (Eliquis -) 2.5 mg PO BID [facility] Last Admin: 03/25/20 10:07 Dose: 2.5 mg Documented by: Atorvastatin Calcium (Lipitor -) 40 mg PO HS [facility] Last Admin: 03/24/20 22:10 Dose: 40 mg Documented by: Docusate Sodium (Colace -) 100 mg PO DAILY [facility] Last Admin: 03/25/20 10:07 Dose: 100 mg Documented by: Sodium Chloride (Normal Saline -) 250 mls @ 3,000 mls/hr IV PRN PRN PRN Reason: Hypotension during Dialysis Stop: 03/24/20 09:18 Levothyroxine Sodium (Synthroid -) 25 mcg PO 0700 [facility] Last Admin: 03/25/20 06:41 Dose: 25 mcg Documented by: Metoprolol Succinate (Toprol Xl -) 100 mg PO DAILY [facility] Last Admin: 03/25/20 10:08 Dose: 100 mg Documented by: Pantoprazole Sodium (Protonix -) 40 mg PO DAILY [facility] Last Admin: 03/25/20 10:07 Dose: 40 mg Documented by: Polyethylene Glycol (Miralax (For Daily Use) -) 17 gm PO BID [facility] Last Admin: 03/25/20 10:08 Dose: 17 grams Documented by: Sacubitril/Valsartan (Entresto 24 Mg-26 Mg Tablet) 1 tab PO BID [facility] Last Admin: 03/25/20 10:12 Dose: 1 tab Documented by: Senna/Docusate Sodium (Pericolace -) 1 tablet PO BID [facility] Last Admin: 03/25/20 10:08 Dose: 1 tablet Documented by: Sevelamer Carbonate (Renvela -) 800 mg PO TIDCM [facility] Last Admin: 03/25/20 12:04 Dose: 800 mg Documented by: Torsemide (Demadex -) 20 mg PO BIDLASIX [facility] Last Admin: 03/25/20 06:41 Dose: 20 mg Documented by: - Objective Vital Signs: Vital Signs Temperature 98.8 F 03/25/20 09:00 Pulse Rate 73 03/25/20 09:00 Respiratory Rate 20 03/25/20 09:00 Blood Pressure 119/96 03/25/20 09:00 O2 Sat by Pulse Oximetry (%) 99 03/25/20 09:00 Constitutional: Yes: No Distress, Calm HENT: Yes: Atraumatic Neck: Yes: Supple Cardiovascular: Yes: Pulse Irregular. No: Murmur Respiratory: Yes: Regular, CTA Bilaterally Gastrointestinal: Yes: Soft. No: Tenderness Edema: No Neurological: Yes: Alert, Oriented Labs: CBC, BMP 03/25/20 06:10 03/25/20 05:40 INR, PTT INR 1.45 (0.83-1.09) H 03/23/20 03:30 Assessment/Plan 89 year old woman with history of ESRD on HD (MWF) CHF with systolic dysfunction, CAD, Afib on eliquis, DM who presented from home with shortness of breath. 1. Shortness of breath with pleural effusions/CHF 2. ESRD on HD 3. Systolic HF 4. Abdominal pain 5. CAD 6. Atrial fibrillation on Eliquis 7. DM No acute need for dialysis today Volume status is improved Next planned dialysis is tomorrow continue renal diet and 1.2L fluid restriction. Respiratory status is improved will require dry weight adjustment as an outpatient Continue work up and management of abdominal discomfort as per primary team Miguel Ramirez DO
--- NOTE | 2020-03-25 13:54 | PN ---
Physical Exam: SUBJECTIVE: Patient seen and examined OBJECTIVE: Vital Signs Period Temp Pulse Resp BP Sys/Dan Pulse Ox Last 24 Hr 97.1 F-98.8 F 73-95 20-20 91-120/55-96 95-99 GENERAL: The patient is awake, alert, and fully oriented, in no acute distress. HEAD: Normal with no signs of trauma. EYES: PERRL, extraocular movements intact, sclera anicteric, conjunctiva clear. No ptosis. ENT: Ears normal, nares patent, oropharynx clear without exudates, moist mucous membranes. NECK: Trachea midline, full range of motion, supple. LUNGS: Breath sounds equal, clear to auscultation bilaterally, no wheezes, no crackles, no accessory muscle use. HEART: Regular rate and rhythm, S1, S2 without murmur, rub or gallop. ABDOMEN: Soft, nontender, nondistended, normoactive bowel sounds, no guarding, no rebound, no hepatosplenomegaly, no masses. EXTREMITIES: 2+ pulses, warm, well-perfused, no edema. NEUROLOGICAL: Cranial nerves II through XII grossly intact. Normal speech, gait not observed. PSYCH: Normal mood, normal affect. SKIN: Warm, dry, normal turgor, no rashes or lesions noted Laboratory Results - last 24 hr 03/24/20 03/24/20 03/25/20 10:10 17:50 05:40 WBC RBC Hgb Hct MCV MCH MCHC RDW Plt Count MPV Sodium 143 Potassium 3.6 Chloride 106 Carbon Dioxide 24 Anion Gap 13 BUN 21.2 H Creatinine 2.9 H Est GFR (CKD-EPI)AfAm 15.97 Est GFR (CKD-EPI)NonAf 13.78 POC Glucometer 112 Random Glucose 95 Calcium 8.4 L Phosphorus 2.7 Magnesium 2.0 Hep C Ab Diagnostic <0.1 03/25/20 06:10 WBC 6.2 RBC 3.56 L Hgb 11.9 Hct 36.3 MCV 101.9 H MCH 33.6 MCHC 33.0 RDW 14.4 Plt Count 109 L MPV 10.6 Sodium Potassium Chloride Carbon Dioxide Anion Gap BUN Creatinine Est GFR (CKD-EPI)AfAm Est GFR (CKD-EPI)NonAf POC Glucometer Random Glucose Calcium Phosphorus Magnesium Hep C Ab Diagnostic Active Medications Generic Name Dose Route Start Last Admin Trade Name Freq PRN Reason Stop Dose Admin Apixaban 2.5 mg 03/23/20 10:30 03/25/20 10:07 Eliquis - PO 2.5 mg BID [facility] Administration Atorvastatin Calcium 40 mg 03/23/20 22:00 03/24/20 22:10 Lipitor - PO 40 mg HS [facility] Administration Docusate Sodium 100 mg 03/24/20 12:45 03/25/20 10:07 Colace - PO 100 mg DAILY [facility] Administration Sodium Chloride 250 mls @ 3,000 mls/hr 03/25/20 13:12 Normal Saline - IV 03/26/20 13:12 PRN PRN Hypotension during Dialysis Levothyroxine Sodium 25 mcg 03/23/20 10:30 03/25/20 06:41 Synthroid - PO 25 mcg 0700 [facility] Administration Metoprolol Succinate 100 mg 03/25/20 10:00 03/25/20 10:08 Toprol Xl - PO 100 mg DAILY [facility] Administration Pantoprazole Sodium 40 mg 03/23/20 16:30 03/25/20 10:07 Protonix - PO 40 mg DAILY [facility] Administration Polyethylene Glycol 17 gm 03/24/20 12:45 03/25/20 10:08 Miralax (For Daily Use) - PO 17 grams BID [facility] Administration Sacubitril/Valsartan 1 tab 03/24/20 22:00 03/25/20 10:12 Entresto 24 Mg-26 Mg Tablet PO 1 tab BID [facility] Administration Senna/Docusate Sodium 1 tablet 03/24/20 22:00 03/25/20 10:08 Pericolace - PO 1 tablet BID [facility] Administration Sevelamer Carbonate 800 mg 03/23/20 12:00 03/25/20 12:04 Renvela - PO 800 mg TIDCM [facility] Administration Torsemide 20 mg 03/23/20 14:00 03/25/20 06:41 Demadex - PO 20 mg BIDLASIX [facility] Administration ASSESSMENT/PLAN: 89F with PMH of ESRD (HD MWF), CAD,HFrEF, AF(Eliquis), DM, presented to the ER with SOB after HD session. #Fluid overload 2/2 ESRD - s/p HD on 03/23 and 03/24, repeat session on 03/26 - Nephro on board (Dr. Ramirez) - Continue home Torsemide 20mg PO #Abdominal discomfort - Pt adamant this is not pain, but more of an unusual sensation, may be 2/2 constipation - Fecal disimpaction attempted yesterday, nos tool in rectum - GI series read pending, if normal will consider CT AP vs DC with F/U with Dr. Finley on 04/13 - Continue Mylanta, Colace, given Lactulose 20mg PO given today #Hx of AFib - Metoprolol Tartrate switched to Metoprolol Succinate 100mg daily - Continue home Eliquis 2.5mg BID #Hx of HTN - Entresto switched from once a day to BID #Hx of Hypothyroid - Synthroid 25mcg 2. Abdominal discomfort secondary to constipation vs impacted stool - Digital disimpaction attempted but unsuccessful - The patient is receiving Colace, Miralax, and Senna - Pending GI X-ray Series 3. AFib - The patient is receiving Eliquis and Metoprolol 4. DM - A1C 6.0% - Random Glucose 113 # FEN - Dialysis MWF, Monitoring Electrolytes, Sodium controlled Renal Diet DVT PPx - Eliquis ATTENDING PHYSICIAN STATEMENT I saw and evaluated the patient. I reviewed the resident's note and discussed the case with the resident. I agree with the resident's findings and plan as documented. SUBJECTIVE: OBJECTIVE: ASSESSMENT AND PLAN:
--- NOTE | 2020-03-25 15:06 | DS ---
Physical Exam: SUBJECTIVE: Patient seen and examined at the bedside, in no acute distress OBJECTIVE: Vital Signs Period Temp Pulse Resp BP Sys/Dan Pulse Ox Last 24 Hr 97.1 F-98.8 F 73-95 20-20 91-119/55-96 95-99 PHYSICAL EXAM GENERAL: The patient is awake, alert, and fully oriented, in no acute distress. HEAD: Normal with no signs of trauma. EYES: PERRL, extraocular movements intact. No ptosis. ENT: Ears normal, nares patent, oropharynx clear without exudates, moist mucous membranes. No posterior throat erythema. NECK: Trachea midline, full range of motion, supple. LUNGS: Fine crackles B/L, improved compared to previous exams, adequate air entry B/L HEART: Regular rate and rhythm, S1, S2. Soft systolic murmur. ABDOMEN: Reports improvement in abdominal discomfort, no distension, no tenderness, regular bowel sounds EXTREMITIES: 2+ pulses, trace pitting edema NEUROLOGICAL: Cranial nerves II through XII grossly intact. Normal speech, gait not observed. 5/5 muscle strength bilaterally in lower extremities. No numbness in lower extremities bilaterally. PSYCH: Normal mood, normal affect. SKIN: Warm, dry, normal turgor, no rashes or lesions note LABS Laboratory Results - last 24 hr 03/24/20 03/24/20 03/25/20 10:10 17:50 05:40 WBC RBC Hgb Hct MCV MCH MCHC RDW Plt Count MPV Sodium 143 Potassium 3.6 Chloride 106 Carbon Dioxide 24 Anion Gap 13 BUN 21.2 H Creatinine 2.9 H Est GFR (CKD-EPI)AfAm 15.97 Est GFR (CKD-EPI)NonAf 13.78 POC Glucometer 112 Random Glucose 95 Calcium 8.4 L Phosphorus 2.7 Magnesium 2.0 Hep C Ab Diagnostic <0.1 03/25/20 06:10 WBC 6.2 RBC 3.56 L Hgb 11.9 Hct 36.3 MCV 101.9 H MCH 33.6 MCHC 33.0 RDW 14.4 Plt Count 109 L MPV 10.6 Sodium Potassium Chloride Carbon Dioxide Anion Gap BUN Creatinine Est GFR (CKD-EPI)AfAm Est GFR (CKD-EPI)NonAf POC Glucometer Random Glucose Calcium Phosphorus Magnesium Hep C Ab Diagnostic HOSPITAL COURSE: Date of Admission:03/23/20 This is an 89year old female with PMH of ESRD (HD MWF), CAD,HFrEF, AF(Eliquis), DM, presented to the ER with SOB after HD session. On examination she had crackles on lung auscultation with trace peipheral edema, a BNP of 75k and bi- basilar pleural changes on CXR. Last Echo was in December 2019 with EF of 15% with global hypokinesia. Dr. Soriano was consulted, and HD was done on 03/23, 03/24, and repeat HD was scheduled for 03/26. Home Torsemide was continued as well. Pt reported abdominal discomfort, but not pain. Reported constipation, was given Miralax, Colace, lactulose, and GI series was performed which showed no abnormalities. Fecal disimpaction was attempted, with no stool found in rectum. She was DCed with F/U with GI (she has a pre-existing appointment with Dr. Finley for 04/13). Cardio was consulted for CHF exacerbation, her meds were changed, Metoprolol Tartrate switched to Metoprolol Succinate 100mg daily and Entresto switched from once a day to BID Date of Discharge: 03/25/20 Discharge Summary Problems reviewed: Yes Reason For Visit: SHORTNESS OF BREATH Current Active Problems Acute on chronic diastolic heart failure (Acute) ESRD (end stage renal disease) on dialysis (Chronic) Condition: Improved - Instructions Diet, Activity, Other Instructions: Hospital course: You came to the ER due to shortness of breath and abdominal discomfort. Your shortness of breath resolved after receiving dialysis while you were admitted. You will need another session tomorrow, and afterwards you should continue your dialysis as regularly scheduled. We also performed performed an XRay of your abdomen, which did not show any abnormalities. You also received medicine to help you relieve your bowels. We consulted a agricultural education instructor, and we changed some of your home medications for optimum blood pressure and atrial fibrillation control. Your condition has now improved, and you are stable to return home. You will need to go for another dialysis session tomorrow (03/26). Medications: - Please take Metoprolol Succinate (Toprol XL) 100mg by mouth once aday, this will replace your previous Metoprolol Tartrate - Please take Entresto TWICE a day (once in the morning and once in the evening) instead of once a day. - Please take Colace 100mg by mouth once a day, for constipation. - Please continue taking all your other medications as previously prescribed. Follow-up: - Next dialysis session on 03/26 - Please follow up with Dr. Ramirez within 2 weeks - Please follow up with your primary care physician, Dr. Padilla, within 1 week - Please follow up with your agricultural education instructor within 2 weeks. If you do not have one, a referral to Dr. Gutierrez has been provided - If your constipation is not relieved with medication, please inform your PCP - Keep your appointment with Tushar Cho on 04/13/20. you might need further diagn ostic testing Referrals: Walker Padilla MD [Primary Care Provider] - 1 Week Connor Finley MD [Staff Physician] - 04/13/20 Miguel Ramirez MD [Staff Physician] - 1 Week (ESRD, HD) Ralf Gutierrez MD [Staff Physician] - 2 Weeks (Hx of AFib, medication switched to Met Succ from Tartrater and Entresto daily to BID) Disposition: HOME - Home Medications Comprehensive Discharge Medication List: Ambulatory Orders Atorvastatin Ca [Lipitor] 40 mg PO HS 03/19/14 Levothyroxine [Synthroid -] 25 mcg PO DAILY 02/13/18 Apixaban [Eliquis] 2.5 mg PO BID #60 tablet 10/02/18 Sevelamer HCl 800 mg PO TID 08/01/19 Torsemide 20 mg PO BID 03/20/20 Docusate Sodium [Colace -] 100 mg PO DAILY 7 Days #7 capsule 03/25/20 Metoprolol Succinate [Toprol XL -] 100 mg PO DAILY 30 Days #30 tab.sr.24h 03/25/20 Sacubitril/Valsartan [Entresto 24 mg-26 mg Tablet] 1 tab PO BID 30 Days #60 tablet 03/25/20 - Discharge Referral Referred to [facility] No ATTENDING PHYSICIAN STATEMENT I saw and evaluated the patient. I reviewed the resident's note and discussed the case with the resident. I agree with the resident's findings and plan as documented. SUBJECTIVE: OBJECTIVE: ASSESSMENT AND PLAN:
--- NOTE | 2020-03-25 17:04 | PN ---
Progress Note (short form) - Note Progress Note: Pt had 3x episodes diarrhea after bowel regimen and reports feeling tired, will hold off on DC and observe overnight. S: - Pt lying in bed, reports feeling dizzy previously (resolved during exam) and tired, no pain or confusion. O: - Vitals AF, HR 93, BP 114/71, SpO2 98% on RA - AOx3, rest of exam unchanged compared to morning exam A&P: - Vitals stable, physical exam normal, pt likely tired due to moving from frequent BMs, also some fluid loss from diarrhea - Will stop bowel regimen and re-examine for clinical signs of volume depletion in AM - Will check BUN in AM - HD tomorrow - Will hold off on DC until re-examination tomorrow morning
[2020-03-25] MEDS: ATORVASTATIN CA 40 MG TABLET (FP) PO SCH (21:03)
--- NOTE | 2020-03-26 08:43 | PN ---
Progress Note, Physician History of Present Illness: Tolerated PT-assisted ambulation with walker w/o GARCIA. Reports left ear discomfort w/o discharge. - Current Medication List Current Medications: Active Medications Apixaban (Eliquis -) 2.5 mg PO BID [facility] Last Admin: 03/25/20 21:03 Dose: 2.5 mg Documented by: Atorvastatin Calcium (Lipitor -) 40 mg PO HS [facility] Last Admin: 03/25/20 21:03 Dose: 40 mg Documented by: Docusate Sodium (Colace -) 100 mg PO DAILY [facility] Last Admin: 03/25/20 10:07 Dose: 100 mg Documented by: Sodium Chloride (Normal Saline -) 250 mls @ 3,000 mls/hr IV PRN PRN PRN Reason: Hypotension during Dialysis Stop: 03/26/20 13:12 Levothyroxine Sodium (Synthroid -) 25 mcg PO 07 [facility] Last Admin: 03/25/20 06:41 Dose: 25 mcg Documented by: Metoprolol Succinate (Toprol Xl -) 100 mg PO DAILY [facility] Last Admin: 03/25/20 10:08 Dose: 100 mg Documented by: Pantoprazole Sodium (Protonix -) 40 mg PO DAILY [facility] Last Admin: 03/25/20 10:07 Dose: 40 mg Documented by: Polyethylene Glycol (Miralax (For Daily Use) -) 17 gm PO BID [facility] Last Admin: 03/25/20 21:02 Dose: Not Given Documented by: Sacubitril/Valsartan (Entresto 24 Mg-26 Mg Tablet) 1 tab PO BID [facility] Last Admin: 03/25/20 21:04 Dose: 1 tab Documented by: Senna/Docusate Sodium (Pericolace -) 1 tablet PO BID [facility] Last Admin: 03/25/20 21:02 Dose: Not Given Documented by: Sevelamer Carbonate (Renvela -) 800 mg PO TIDCM [facility] Last Admin: 03/25/20 17:29 Dose: Not Given Documented by: Torsemide (Demadex -) 20 mg PO BIDLASIX [facility] Last Admin: 03/25/20 14:59 Dose: Not Given Documented by: - Objective Vital Signs: Vital Signs Temperature 98 F 03/26/20 05:28 Pulse Rate 69 03/26/20 05:28 Respiratory Rate 20 03/26/20 05:28 Blood Pressure 103/46 L 03/26/20 05:28 O2 Sat by Pulse Oximetry (%) 99 03/25/20 20:58 Constitutional: Yes: No Distress, Calm, Thin Neck: Yes: Supple Cardiovascular: Yes: Regular Rate and Rhythm Respiratory: Yes: Regular, CTA Bilaterally Gastrointestinal: Yes: Normal Bowel Sounds, Soft Edema: No Labs: CBC, BMP 03/25/20 06:10 03/25/20 05:40 INR, PTT INR 1.45 (0.83-1.09) H 03/23/20 03:30 Problem List - Problems (1) ESRD (end stage renal disease) on dialysis Code(s): N18.6 - END STAGE RENAL DISEASE; Z99.2 - DEPENDENCE ON RENAL DIALYSIS (2) Pleural effusion Code(s): J90 - PLEURAL EFFUSION, NOT ELSEWHERE CLASSIFIED (3) Shortness of breath Code(s): R06.02 - SHORTNESS OF BREATH (4) Acute on chronic systolic and diastolic heart failure, NYHA class 3 Code(s): I50.43 - ACUTE ON CHRONIC COMBINED SYSTOLIC AND DIASTOLIC HRT FAIL (5) Chronic anticoagulation Code(s): Z79.01 - [facility] (CURRENT) USE OF ANTICOAGULANTS (6) Diabetes mellitus Code(s): E11.9 - TYPE 2 DIABETES MELLITUS WITHOUT COMPLICATIONS Qualifiers: Diabetes mellitus type: type 2 Diabetes mellitus detention insulin use: without detention use Diabetes mellitus complication status: with kidney complications Diabetes mellitus complication detail: with chronic kidney disease Chronic kidney disease stage: stage 4 (severe) Qualified Code(s): E11.22 - Type 2 diabetes mellitus with diabetic chronic kidney disease; N18.4 - Chronic kidney disease, stage 4 (severe) (7) HLD (hyperlipidemia) Code(s): E78.5 - HYPERLIPIDEMIA, UNSPECIFIED Qualifiers: Hyperlipidemia type: pure hypercholesterolemia Qualified Code(s): E78.00 - Pure hypercholesterolemia, unspecified; E78.0 - Pure hypercholesterolemia (8) HTN (hypertension) Code(s): I10 - ESSENTIAL (PRIMARY) HYPERTENSION Qualifiers: Hypertension type: renovascular hypertension Qualified Code(s): I15.0 - Renovascular hypertension (9) Paroxysmal atrial fibrillation with rapid ventricular response Code(s): I48.0 - PAROXYSMAL ATRIAL FIBRILLATION Assessment/Plan Lexiscan MPI: 04/03/2018 Myopathic myocardium with diffuse moderate global HK LVEF 41% Lexiscan MPI: 05/10/2016 Small mild anterior and inferior ischemia, LVEF 65% 10/03/2018 Echo @ [facility]: Severely decreased LVEF 20%, dilated LV, normal RV size and fxn, mild MR, AE, small pericardial effusion, ANNE Echo: 09/26/2018 Normal LV size with severely decreased LV fxn, normal RV size and fxn, mild GORDON, mild MR, AR, mild-mod TR Echo: 02/15/2018 Moderately decreased LV fxn, mild LAE, mild-mod MR, mod TR RVSP 30-40 mmHg, mild-mod AR and small pericardial effusion Echo: 06/25/2015 conc LVH, with normal LV systolic function mod LOUISE 1.1 cm^2, mild TR, MR, AR 1. Shortness of breath with pleural effusions 2/2 acute on chronic systolic hea rt failure resolving 2. Dilated cardiomyopathy, HFrEF 3. Abdominal discomfort, ?etiology ?Diverticular disease 4. HTN 5. Hypercholesterolemia 6. CAD s/p PCI/stent, angina pectoris 7. Aortic valve disease - /AR 8. ESRD on HD 9. NIDDM 10. Hypothyroidism 11. AF on DOAC/Eliquis 12. Demand ischemia PLAN: 1. Continue Eliquis 2.5 mg BID 2. Entresto 24/26 mg BID and Toprol XL 100 qd 3. Torsemide 20 mg BID 4. Atorvastatin 40 mg QHS 5. Conservative cardiac management without further intervention 6. Continue Protonix 7. HD and UF per Renal 8. Troponin downtrending 9. UGI series w/o gastric outlet obstruction 10. PT as tolerated with d/c planning
[2020-03-26] MEDS: SEVELAMER CARBONATE 800 MG TAB (FP) PO SCH ×3 (09:00→17:49)
[2020-03-26 09:20] LABS: HEMATOCRIT 34.5 % (32.4-45.2); HEMOGLOBIN 11.4 GM/dL (10.7-15.3); MCH 34.4 pg (25.7-33.7); MEAN CELL VOLUME 104.1 fl (80-96); MEAN PLT VOLUME 10.9 fl (7.5-11.1); PLATELET COUNT 104 K/MM3 (134-434); RBC 3.31 M/mm3 (3.60-5.2); RDW 14.4 % (11.6-15.6); WHITE BLOOD COUNT 6.3 K/mm3 (4.0-10.0)
[2020-03-26 09:51] LABS: BLOOD UREA NITROGEN 31.9 mg/dL (7-18); CALCIUM 8.4 mg/dL (8.5-10.1); CREATININE 4.2 mg/dL (0.55-1.3); MAGNESIUM 1.9 mg/dL (1.8-2.4); POTASSIUM 3.4 mmol/L (3.5-5.1)
[2020-03-26] MEDS: TORSEMIDE 20 MG TABLET (FP) PO SCH ×2 (12:42→13:40)
[2020-03-26] MEDS: POLYETHYLENE GLYCOL 3350 119 GM BTL PO SCH ×2 (12:45→21:03)
[2020-03-26] MEDS: DOCUSATE SODIUM 100 MG CAPSULE (FP) PO SCH (12:47)
[2020-03-26] MEDS: SENNOSIDES/DOCUSATE COMBO (SENNA PLUS) TABLET (UD) PO SCH ×2 (12:48→21:03)
[2020-03-26] MEDS ORDERED: PT OWN MED DRAWER 7, Y5N ONE ×2 (12:51→14:23)
[2020-03-26] MEDS: LEVOTHYROXINE NA 25 MCG TABLET (FP) PO SCH (12:55)
[2020-03-26] MEDS: APIXABAN 2.5 MG TABLET PO SCH ×2 (12:55→21:03)
[2020-03-26] MEDS: PANTOPRAZOLE 40 MG TABLET PO SCH (12:56)
[2020-03-26] MEDS: SACUBITRIL/VALSARTAN 24 MG-26 MG TABLET PO SCH ×2 (12:56→21:04)
--- NOTE | 2020-03-26 14:06 | PN ---
Teaching Attending Note Name of Resident: Viral Matthews ATTENDING PHYSICIAN STATEMENT I saw and evaluated the patient. I reviewed the resident's note and discussed the case with the resident. I agree with the resident's findings and plan as documented. SUBJECTIVE:seen in Hd . resident evaluated her after HD No fever or chills . denied any pain to me. no SOB , no palpitations . ate breakfast and did not have any sx. did not feel dizzy when walking OBJECTIVE: NAD, MMM, Cv: irreg irreg, 2/6 SM is heard at base Lungs: CTAB Ext: trace edema Abd: soft, NT, ND, NL BS. ASSESSMENT AND PLAN: 89 y/o lady with h/o congenital atrophic kidney, ESRd on HD M/W/F , dilated CM , HFrEF(LVEF 15%), CAD s/p PCI, HLP, , AR , AFIB on Eliquis, NIDDM, history of right partial mastectomy who presented with SOB . she was found to have acute on chronic systolic heart failure 1- Acute on chronic systolic CHF. resolved 2- h/o ESRD 3- h/o DM Now A1c of 6 4- h/o HTN 5- Abdominal discomfort 6- Constipation plan : - patient did not leave yesterday as she had ,ultiple BMs after lactulose. had one smal BM this am with normal consistency . - BP was a little low after HD but recovered shortly , SBP 115 - she reported ear discomfort to the resident, who could not see tympanic membrane due to wax. ear drops were ordered and she was advised to follow with ENT . - cont demadex - HD today - cont enteresto - cont AC - f/u with GI , has appointment with dr. fide Mcpherson: DC home today .
--- NOTE | 2020-03-26 14:14 | PN ---
Progress Note, Physician Chief Complaint: Shortness of breath History of Present Illness: Seen and examined at the bedside awake and alert s/p dialysis earlier today with 2L UF reports feeling warm and having significant ear pain no discharge from ear also has a mild headache no sob, cp, fever, chills, N/V/D - Current Medication List Current Medications: Active Medications Apixaban (Eliquis -) 2.5 mg PO BID [facility] Last Admin: 03/26/20 12:55 Dose: 2.5 mg Documented by: Atorvastatin Calcium (Lipitor -) 40 mg PO HS [facility] Last Admin: 03/25/20 21:03 Dose: 40 mg Documented by: Carbamide Perox/Anhydrous Glycerin (Debrox -) 5 drop BID [facility] Stop: 03/29/20 22:01 Docusate Sodium (Colace -) 100 mg PO DAILY [facility] Last Admin: 03/26/20 12:47 Dose: Not Given Documented by: Sodium Chloride (Normal Saline -) 250 mls @ 3,000 mls/hr IV PRN PRN PRN Reason: Hypotension during Dialysis Stop: 03/26/20 13:12 Levothyroxine Sodium (Synthroid -) 25 mcg PO 0700 [facility] Last Admin: 03/26/20 12:55 Dose: 25 mcg Documented by: Metoprolol Succinate (Toprol Xl -) 100 mg PO DAILY [facility] Last Admin: 03/26/20 12:40 Dose: Not Given Documented by: Pantoprazole Sodium (Protonix -) 40 mg PO DAILY [facility] Last Admin: 03/26/20 12:56 Dose: 40 mg Documented by: Polyethylene Glycol (Miralax (For Daily Use) -) 17 gm PO BID [facility] Last Admin: 03/26/20 12:45 Dose: Not Given Documented by: Sacubitril/Valsartan (Entresto 24 Mg-26 Mg Tablet) 1 tab PO BID [facility] Last Admin: 03/26/20 12:56 Dose: 1 tab Documented by: Senna/Docusate Sodium (Pericolace -) 1 tablet PO BID [facility] Last Admin: 03/26/20 12:48 Dose: Not Given Documented by: Sevelamer Carbonate (Renvela -) 800 mg PO TIDCM [facility] Last Admin: 03/26/20 12:43 Dose: Not Given Documented by: Torsemide (Demadex -) 20 mg PO BIDLASIX [facility] Last Admin: 03/26/20 13:40 Dose: Not Given Documented by: - Objective Vital Signs: Vital Signs Temperature 98 F 03/26/20 14:01 Pulse Rate 93 H 03/26/20 14:01 Respiratory Rate 18 03/26/20 14:01 Blood Pressure 115/53 L 03/26/20 14:01 O2 Sat by Pulse Oximetry (%) 98 03/26/20 14:01 Constitutional: Yes: Well Nourished, No Distress HENT: Yes: Atraumatic Neck: Yes: Supple Cardiovascular: Yes: Regular Rate and Rhythm Respiratory: Yes: Regular, CTA Bilaterally Gastrointestinal: Yes: Soft Extremities: No: Cyanosis Edema: No Neurological: Yes: Alert Labs: CBC, BMP 03/26/20 08:50 03/26/20 08:50 INR, PTT INR 1.45 (0.83-1.09) H 03/23/20 03:30 Assessment/Plan 89 year old woman with history of ESRD on HD (MWF) CHF with systolic dysfunction, CAD, Afib on eliquis, DM who presented from home with shortness of breath. 1. Shortness of breath with pleural effusions/CHF 2. ESRD on HD 3. Systolic HF 4. Abdominal pain 5. CAD 6. Atrial fibrillation on Eliquis 7. DM Tolerated dialysis well today Volume status and electrolytes are within normal limits next planned dialysis is Sunday pain control w/o NSAID as needed may possibly need oral antibiotics if ear pain persists. Discharge planning as per primary team Miguel Ramirez DO
[2020-03-26] MEDS ORDERED: AMOXICILLIN 500 MG CAPSULE (FP) PO ONE (15:04)
[2020-03-26] MEDS: ACETAMINOPHEN 325 MG TABLET (FP) PO PRN ×2 (15:05→21:02)
[2020-03-26] MEDS: CARBAMIDE PEROXIDE 6.5% OTIC 15 ML BOTTLE AS SCH ×2 (15:17→21:10)
--- NOTE | 2020-03-26 18:27 | PN ---
Physical Exam: SUBJECTIVE: Patient seen and examined at bedside. The patient reports left ear pain. The left ear has no erythema or tenderness when the pinna is tugged. Examination inside the ear shows wax with total obstruction of the tympanic membrane. Debrox drops ordered for the patient's left ear. The patient also reports dry mouth. The patient denies fever/chills, diarrhea, and shortness of breath. The patient's nurse reported that the patient reported 1 bowel movement that morning, but when the nurse looked, there was no stool, so she suspects the patient only had gas. The patient reported not feeling ready to go home today because she is afraid she might get sick if a doctor isn't there to watch her, due to her ear pain. The nature of her ear pain was explained to her, but she responded that she would rather leave tomorrow, then; and that she will appeal the discharge. In the afternoon, the patient was examined after dialysis. The patient's blood pressure a few hours after dialysis was 115/53. She reported no shortness of breath. OBJECTIVE: Vital Signs Period Temp Pulse Resp BP Sys/Dan Pulse Ox Last 24 Hr 97.6 F-98.3 F 69-95 18-20 93-120/44-76 96-99 GENERAL: The patient is awake, alert, and fully oriented, in no acute distress. HEAD: Normal with no signs of trauma. EYES: PERRL, extraocular movements intact. No ptosis. ENT: Ears normal, nares patent, oropharynx clear without exudates, moist mucous membranes. No posterior throat erythema. Left ear non-erythematous with no pain on tugging of pinna. Wax completely covering the tympanic membrane when viewed on otoscopic exam. NECK: Trachea midline, full range of motion, supple. LUNGS: Good, non-decreased, breath sounds bilaterally. HEART: Regular rate and rhythm. S1, S2. Soft systolic murmur. ABDOMEN: Soft, nontender, distended, hypoactive bowel sounds, no guarding, no rebound, no masses. EXTREMITIES: 2+ pulses, warm, well-perfused, mild leg edema. NEUROLOGICAL: Cranial nerves II through XII grossly intact. Normal speech, gait not observed. PSYCH: Normal mood, normal affect. SKIN: Warm, dry, normal turgor, no rashes or lesions noted. Laboratory Results - last 24 hr 03/26/20 03/26/20 08:50 08:50 WBC 6.3 RBC 3.31 L Hgb 11.4 Hct 34.5 MCV 104.1 H MCH 34.4 H MCHC 33.0 RDW 14.4 Plt Count 104 L MPV 10.9 Sodium 140 Potassium 3.4 L Chloride 104 Carbon Dioxide 28 Anion Gap 8 BUN 31.9 H Creatinine 4.2 H Est GFR (CKD-EPI)AfAm 10.20 Est GFR (CKD-EPI)NonAf 8.80 Random Glucose 162 H Calcium 8.4 L Magnesium 1.9 Active Medications Generic Name Dose Route Start Last Admin Trade Name Freq PRN Reason Stop Dose Admin Acetaminophen 650 mg 03/26/20 14:49 03/26/20 15:05 Tylenol - PO 650 mg Q6H PRN Administration PAIN Amoxicillin 500 mg 03/26/20 22:00 Amoxicillin - PO BID [facility] Apixaban 2.5 mg 03/23/20 10:30 03/26/20 12:55 Eliquis - PO 2.5 mg BID [facility] Administration Atorvastatin Calcium 40 mg 03/23/20 22:00 03/25/20 21:03 Lipitor - PO 40 mg HS [facility] Administration Carbamide Perox/Anhydrous Glycerin 5 drop 03/26/20 14:00 03/26/20 15:17 Debrox - 03/29/20 22:01 5 drop BID [facility] Administration Docusate Sodium 100 mg 03/24/20 12:45 03/26/20 12:47 Colace - PO Not Given DAILY [facility] Sodium Chloride 250 mls @ 3,000 mls/hr 03/25/20 13:12 Normal Saline - IV 03/26/20 13:12 PRN PRN Hypotension during Dialysis Levothyroxine Sodium 25 mcg 03/23/20 10:30 03/26/20 12:55 Synthroid - PO 25 mcg 0700 [facility] Administration Metoprolol Succinate 100 mg 03/25/20 10:00 03/26/20 12:40 Toprol Xl - PO Not Given DAILY [facility] Pantoprazole Sodium 40 mg 03/23/20 16:30 03/26/20 12:56 Protonix - PO 40 mg DAILY [facility] Administration Polyethylene Glycol 17 gm 03/24/20 12:45 03/26/20 12:45 Miralax (For Daily Use) - PO Not Given BID [facility] Sacubitril/Valsartan 1 tab 03/24/20 22:00 03/26/20 12:56 Entresto 24 Mg-26 Mg Tablet PO 1 tab BID [facility] Administration Senna/Docusate Sodium 1 tablet 03/24/20 22:00 03/26/20 12:48 Pericolace - PO Not Given BID [facility] Sevelamer Carbonate 800 mg 03/23/20 12:00 03/26/20 17:49 Renvela - PO 800 mg TIDCM [facility] Administration Torsemide 20 mg 03/23/20 14:00 03/26/20 13:40 Demadex - PO Not Given BIDLASIX [facility] ASSESSMENT/PLAN: 89 year old female patient with past medical history that includes congenital atrophic kidney, ESRD, Hemodialysis on // schedule, CAD s/p PCI, systolic CHF, AFib on Eliquis, DM, and Right Partial Mastectomy, who presented to the emergency room with shortness of breath. 1. CHF exacerbation secondary to fluid overload secondary to incomplete fluid removal from dialysis - Patient had dialysis today and was reexamined afterwards. - The patient reported no shortness of breath after dialysis 2. Diarrhea - resolved - The patient reported no diarrhea today 3. AFib - The patient is receiving Eliquis and Metoprolol 4. DM - A1C 6.0% - Random Glucose 162 today # FEN - Dialysis MWF, Monitoring Electrolytes, Sodium controlled Renal Diet DVT PPx - Eliquis Visit type - Emergency Visit Emergency Visit: Yes ED Registration Date: 03/23/20 Care time: The patient presented to the Emergency Department on the above date and was hospitalized for further evaluation of their emergent condition. - New Patient This patient is new to me today: No - Critical Care Critical Care patient: No - Discharge Referral Referred to [facility] Med P.C.: No - Medication Review Med list reviewed for High Risk Meds patients 65 and older: Yes ATTENDING PHYSICIAN STATEMENT I saw and evaluated the patient. I reviewed the resident's note and discussed the case with the resident. I agree with the resident's findings and plan as documented. SUBJECTIVE: OBJECTIVE: ASSESSMENT AND PLAN:
[2020-03-26] MEDS: ATORVASTATIN CA 40 MG TABLET (FP) PO SCH (21:03)
[2020-03-26] MEDS: AMOXICILLIN 500 MG CAPSULE (FP) PO SCH (21:04)
[2020-03-26 22:06] LABS: HEP B CORE AB, TOT Negative (Negative)
[2020-03-26] MEDS ORDERED: MELATONIN 5 MG TABLETS PO ONE (23:21)
[2020-03-27] MEDS: TORSEMIDE 20 MG TABLET (FP) PO SCH ×2 (06:31→14:32)
[2020-03-27] MEDS: LEVOTHYROXINE NA 25 MCG TABLET (FP) PO SCH (06:31)
[2020-03-27] MEDS: SEVELAMER CARBONATE 800 MG TAB (FP) PO SCH ×3 (08:29→17:11)
[2020-03-27] MEDS: ACETAMINOPHEN 325 MG TABLET (FP) PO PRN ×2 (08:29→22:18)
[2020-03-27] MEDS: AMOXICILLIN 500 MG CAPSULE (FP) PO SCH ×2 (09:01→22:17)
[2020-03-27] MEDS: PANTOPRAZOLE 40 MG TABLET PO SCH (09:01)
[2020-03-27] MEDS: APIXABAN 2.5 MG TABLET PO SCH ×2 (09:01→22:18)
[2020-03-27] MEDS: SENNOSIDES/DOCUSATE COMBO (SENNA PLUS) TABLET (UD) PO SCH (09:01)
[2020-03-27] MEDS: POLYETHYLENE GLYCOL 3350 119 GM BTL PO SCH ×2 (09:01→22:20)
[2020-03-27] MEDS: SACUBITRIL/VALSARTAN 24 MG-26 MG TABLET PO SCH ×2 (09:02→22:18)
[2020-03-27] MEDS: DOCUSATE SODIUM 100 MG CAPSULE (FP) PO SCH (09:02)
[2020-03-27] MEDS: CARBAMIDE PEROXIDE 6.5% OTIC 15 ML BOTTLE AS SCH ×2 (09:04→22:20)
--- NOTE | 2020-03-27 11:39 | PN ---
Progress Note, Physician History of Present Illness: Denies chest pain or dyspnea. Reports left ear discomfort w/o discharge improving with ear drops. - Current Medication List Current Medications: Active Medications Acetaminophen (Tylenol -) 650 mg PO Q6H PRN PRN Reason: PAIN Last Admin: 03/27/20 08:29 Dose: 650 mg Documented by: Amoxicillin (Amoxicillin -) 500 mg PO BID [facility] Last Admin: 03/27/20 09:01 Dose: 500 mg Documented by: Apixaban (Eliquis -) 2.5 mg PO BID [facility] Last Admin: 03/27/20 09:01 Dose: 2.5 mg Documented by: Atorvastatin Calcium (Lipitor -) 40 mg PO HS [facility] Last Admin: 03/26/20 21:03 Dose: 40 mg Documented by: Carbamide Perox/Anhydrous Glycerin (Debrox -) 5 drop BID [facility] Stop: 03/29/20 22:01 Last Admin: 03/27/20 09:04 Dose: 5 drop Documented by: Docusate Sodium (Colace -) 100 mg PO DAILY [facility] Last Admin: 03/27/20 09:02 Dose: Not Given Documented by: Sodium Chloride (Normal Saline -) 250 mls @ 3,000 mls/hr IV PRN PRN PRN Reason: Hypotension during Dialysis Stop: 03/26/20 13:12 Levothyroxine Sodium (Synthroid -) 25 mcg PO 0700 [facility] Last Admin: 03/27/20 06:31 Dose: 25 mcg Documented by: Metoprolol Succinate (Toprol Xl -) 100 mg PO DAILY [facility] Last Admin: 03/27/20 09:01 Dose: 100 mg Documented by: Pantoprazole Sodium (Protonix -) 40 mg PO DAILY [facility] Last Admin: 03/27/20 09:01 Dose: 40 mg Documented by: Polyethylene Glycol (Miralax (For Daily Use) -) 17 gm PO BID [facility] Last Admin: 03/27/20 09:01 Dose: Not Given Documented by: Sacubitril/Valsartan (Entresto 24 Mg-26 Mg Tablet) 1 tab PO BID [facility] Last Admin: 03/27/20 09:02 Dose: 1 tab Documented by: Senna/Docusate Sodium (Pericolace -) 1 tablet PO BID [facility] Last Admin: 03/27/20 09:01 Dose: Not Given Documented by: Sevelamer Carbonate (Renvela -) 800 mg PO TIDCM [facility] Last Admin: 03/27/20 08:29 Dose: 800 mg Documented by: Torsemide (Demadex -) 20 mg PO BIDLASIX [facility] Last Admin: 03/27/20 06:31 Dose: 20 mg Documented by: - Objective Vital Signs: Vital Signs Temperature 98 F 03/27/20 09:39 Pulse Rate 108 H 03/27/20 09:39 Respiratory Rate 20 03/27/20 09:39 Blood Pressure 106/52 L 03/27/20 09:39 O2 Sat by Pulse Oximetry (%) 96 03/27/20 09:39 Constitutional: Yes: No Distress, Calm Neck: Yes: Supple Cardiovascular: Yes: Regular Rate and Rhythm Respiratory: Yes: Regular, CTA Bilaterally Gastrointestinal: Yes: Normal Bowel Sounds, Soft Edema: No Labs: CBC, BMP 03/26/20 08:50 03/26/20 08:50 INR, PTT INR 1.45 (0.83-1.09) H 03/23/20 03:30 - ....Imaging EKG: Report Reviewed (Tele: Dexter SEVERINO) Problem List - Problems (1) ESRD (end stage renal disease) on dialysis Code(s): N18.6 - END STAGE RENAL DISEASE; Z99.2 - DEPENDENCE ON RENAL DIALYSIS (2) Pleural effusion Code(s): J90 - PLEURAL EFFUSION, NOT ELSEWHERE CLASSIFIED (3) Shortness of breath Code(s): R06.02 - SHORTNESS OF BREATH (4) Acute on chronic systolic and diastolic heart failure, NYHA class 3 Code(s): I50.43 - ACUTE ON CHRONIC COMBINED SYSTOLIC AND DIASTOLIC HRT FAIL (5) Chronic anticoagulation Code(s): Z79.01 - LONG-TERM (CURRENT) USE OF ANTICOAGULANTS (6) Diabetes mellitus Code(s): E11.9 - TYPE 2 DIABETES MELLITUS WITHOUT COMPLICATIONS Qualifiers: Diabetes mellitus type: type 2 Diabetes mellitus salvage determiner insulin use: without salvage determiner use Diabetes mellitus complication status: with kidney complications Diabetes mellitus complication detail: with chronic kidney disease Chronic kidney disease stage: stage 4 (severe) Qualified Code(s): E11.22 - Type 2 diabetes mellitus with diabetic chronic kidney disease; N18.4 - Chronic kidney disease, stage 4 (severe) (7) HLD (hyperlipidemia) Code(s): E78.5 - HYPERLIPIDEMIA, UNSPECIFIED Qualifiers: Hyperlipidemia type: pure hypercholesterolemia Qualified Code(s): E78.00 - Pure hypercholesterolemia, unspecified; E78.0 - Pure hypercholesterolemia (8) HTN (hypertension) Code(s): I10 - ESSENTIAL (PRIMARY) HYPERTENSION Qualifiers: Hypertension type: renovascular hypertension Qualified Code(s): I15.0 - Celestine ovascular hypertension (9) Paroxysmal atrial fibrillation with rapid ventricular response Code(s): I48.0 - PAROXYSMAL ATRIAL FIBRILLATION Assessment/Plan Lexiscan MPI: 04/03/2018 Myopathic myocardium with diffuse moderate global HK LVEF 41% Lexiscan MPI: 05/10/2016 Small mild anterior and inferior ischemia, LVEF 65% 10/03/2018 Echo @ [facility]: Severely decreased LVEF 20%, dilated LV, normal RV size and fxn, mild MR, AE, small pericardial effusion, ANNE Echo: 09/26/2018 Normal LV size with severely decreased LV fxn, normal RV size and fxn, mild GORDON, mild MR, AR, mild-mod TR Echo: 02/15/2018 Moderately decreased LV fxn, mild LAE, mild-mod MR, mod TR RVSP 30-40 mmHg, mild-mod AR and small pericardial effusion Echo: 06/25/2015 conc LVH, with normal LV systolic function mod LOUISE 1.1 cm^2, mild TR, MR, AR 1. Shortness of breath with pleural effusions 2/2 acute on chronic systolic heart failure resolving 2. Dilated cardiomyopathy, HFrEF 3. Abdominal discomfort, ?etiology ?Diverticular disease 4. HTN 5. Hypercholesterolemia 6. CAD s/p PCI/stent, angina pectoris 7. Aortic valve disease - /AR 8. ESRD on HD 9. NIDDM 10. Hypothyroidism 11. AF on DOAC/Eliquis 12. Demand ischemia PLAN: 1. Continue Eliquis 2.5 mg BID 2. Entresto 24/26 mg BID and Toprol XL 100 qd 3. Torsemide 20 mg BID 4. Atorvastatin 40 mg QHS 5. Conservative cardiac management without further intervention 6. Continue Protonix 7. HD and UF per Renal 8. Troponin downtrending 9. UGI series w/o gastric outlet obstruction 10. PT as tolerated with d/c planning
--- NOTE | 2020-03-27 15:41 | PN ---
Teaching Attending Note Name of Resident: Viral Matthews ATTENDING PHYSICIAN STATEMENT I saw and evaluated the patient. I reviewed the resident's note and discussed the case with the resident. I agree with the resident's findings and plan as documented. SUBJECTIVE: No fever or chills. She was restingcomfortably in bed when i walked in and then when i started conversation with ehr she started shaking and complained of not feeling well. She then was shaking more and complained of anxiety when she was told she was discharged. she then admitted that she feels scared at home alone, and does not want to go she likes to stay in hospital. L ear pain is better . No pain in R ear OBJECTIVE: anxious looking , shaking in hands during conversation. L ear with clean canal and slightly erythematous tympanic membrane. No fluids seen . R ear with a cerumin plug with no no external abnormalities Cv: irreg irreg. Lungs: CTAB Ext: trace edema Abd: soft, NT, ND, NL BS. ASSESSMENT AND PLAN: 89 y/o lady with h/o congenital atrophic kidney, ESRd on HD M/W/F , dilated CM , HFrEF(LVEF 15%), CAD s/p PCI, HLP, , AR , AFIB on Eliquis, NIDDM, history of right partial mastectomy who presented with SOB . she was found to have acute on chronic systolic heart failure 1- Acute on chronic systolic CHF. resolved 2- h/o ESRD 3- h/o DM Now A1c of 6 4- h/o HTN 5- Abdominal discomfort 6- Constipation 7- L otitis media . R cerumin plug Plan: - patient feels anxious about staying home alone. family came later and decided patient is interested in NH placement. - cont amoxicillin - use debres in both ears - cont demadex -repeat labs tomorrow - cont enteresto - cont toprol - cont AC - f/u with GI , has appointment with dr. elizalde - f/u with ENT as out pt . apt was made Dipso: will d/w SW regarding placement.
--- NOTE | 2020-03-27 17:21 | PN ---
Physical Exam: SUBJECTIVE: Patient seen and examined at bedside. The patient reports being afraid of discharge in case her health takes a downturn. She reports continued left ear pain. She also has some shaking and mild shortness of breath when lying down at night. She denies fever/chills, dysuria, lightheadedness, andbowel/bladder problems. Ears re-examined with no significant change noted on otoscopic exam since yesterday. Patient's family was talked to in the afternoon. They would like her to go to rehab. OBJECTIVE: Vital Signs Period Temp Pulse Resp BP Sys/Dan Pulse Ox Last 24 Hr 97.6 F-98.3 F 68-108 18-20 102-128/52-68 95-99 GENERAL: The patient is awake, alert, and fully oriented, in no acute distress. HEAD: Normal with no signs of trauma. EYES: PERRL, extraocular movements intact. No ptosis. ENT: Ears normal, nares patent, oropharynx clear without exudates, moist mucous membranes. No posterior throat erythema. Left ear non-erythematous with no pain on tugging of pinna. Wax completely covering the left ear's tympanic membrane when viewed on otoscopic exam. Right ear tympanic membrane viewable, nonerythematous, with no wax. NECK: Trachea midline, full range of motion, supple. LUNGS: Good, non-decreased, breath sounds bilaterally. Mild crackles at bases bilaterally. HEART: Regular rate and rhythm. S1, S2. Soft systolic murmur. ABDOMEN: Soft, nontender, distended, hypoactive bowel sounds, no guarding, no rebound, no masses. EXTREMITIES: 2+ pulses, warm, well-perfused, mild leg edema. NEUROLOGICAL: Cranial nerves II through XII grossly intact. Normal speech, gait not observed. PSYCH: Normal mood, normal affect. SKIN: Warm, dry, normal turgor, no rashes or lesions noted. Laboratory Results - last 24 hr 03/24/20 10:10 Hep A IgM Ab Confirm Negative Hepatitis A Ab Total Negative Hep Bs Antigen Negative Hep Bs Antibody Reactive Hep B Core Total Ab Negative Hep B Core IgM Ab Negative Hepatitis Be Antibody Negative Hepatitis Be Antigen Negative Active Medications Generic Name Dose Route Start Last Admin Trade Name Freq PRN Reason Stop Dose Admin Acetaminophen 650 mg 03/26/20 14:49 03/27/20 08:29 Tylenol - PO 650 mg Q6H PRN Administration PAIN Amoxicillin 500 mg 03/26/20 22:00 03/27/20 09:01 Amoxicillin - PO 500 mg BID [facility] Administration Apixaban 2.5 mg 03/23/20 10:30 03/27/20 09:01 Eliquis - PO 2.5 mg BID [facility] Administration Atorvastatin Calcium 40 mg 03/23/20 22:00 03/26/20 21:03 Lipitor - PO 40 mg HS [facility] Administration Carbamide Perox/Anhydrous Glycerin 5 drop 03/26/20 14:00 03/27/20 09:04 Debrox - 03/29/20 22:01 5 drop BID [facility] Administration Docusate Sodium 100 mg 03/24/20 12:45 03/27/20 09:02 Colace - PO Not Given DAILY [facility] Sodium Chloride 250 mls @ 3,000 mls/hr 03/25/20 13:12 Normal Saline - IV 03/26/20 13:12 PRN PRN Hypotension during Dialysis Levothyroxine Sodium 25 mcg 03/23/20 10:30 03/27/20 06:31 Synthroid - PO 25 mcg 0700 [facility] Administration Metoprolol Succinate 100 mg 03/25/20 10:00 03/27/20 09:01 Toprol Xl - PO 100 mg DAILY [facility] Administration Pantoprazole Sodium 40 mg 03/23/20 16:30 03/27/20 09:01 Protonix - PO 40 mg DAILY [facility] Administration Polyethylene Glycol 17 gm 03/24/20 12:45 03/27/20 09:01 Miralax (For Daily Use) - PO Not Given BID [facility] Sacubitril/Valsartan 1 tab 03/24/20 22:00 03/27/20 09:02 Entresto 24 Mg-26 Mg Tablet PO 1 tab BID [facility] Administration Senna/Docusate Sodium 1 tablet 03/24/20 22:00 03/27/20 09:01 Pericolace - PO Not Given BID [facility] Sevelamer Carbonate 800 mg 03/23/20 12:00 03/27/20 17:11 Renvela - PO 800 mg TIDCM [facility] Administration Torsemide 20 mg 03/23/20 14:00 03/27/20 14:32 Demadex - PO 20 mg BIDLASIX [facility] Administration ASSESSMENT/PLAN: 89 year old female patient with past medical history that includes congenital atrophic kidney, ESRD, Hemodialysis on M/W/F schedule, CAD s/p PCI, systolic CHF, AFib on Eliquis, DM, and Right Partial Mastectomy, who presented to the emergency room with shortness of breath. 1. CHF exacerbation secondary to fluid overload secondary to incomplete fluid removal from dialysis - Patient reports mild shortness of breath at night - 96% oxygenation on room air 2. Diarrhea - resolved - The patient reported no diarrhea today 3. AFib - The patient is receiving Eliquis and Metoprolol 4. DM - A1C 6.0% - Random Glucose 162 # FEN - Dialysis MWF, Monitoring Electrolytes, Sodium controlled Renal Diet DVT PPx - Eliquis Visit type - Emergency Visit Emergency Visit: Yes ED Registration Date: 03/23/20 Care time: The patient presented to the Emergency Department on the above date and was hospitalized for further evaluation of their emergent condition. - New Patient This patient is new to me today: No - Critical Care Critical Care patient: No - Discharge Referral Referred to [facility] Med P.C.: No - Medication Review Med list reviewed for High Risk Meds patients 65 and older: Yes ATTENDING PHYSICIAN STATEMENT I saw and evaluated the patient. I reviewed the resident's note and discussed the case with the resident. I agree with the resident's findings and plan as documented. SUBJECTIVE: OBJECTIVE: ASSESSMENT AND PLAN:
--- NOTE | 2020-03-27 17:51 | PN ---
Progress Note (short form) - Note Progress Note: Problems 1. Shortness of breath with pleural effusions/CHF 2. ESRD on HD 3. Systolic HF 4. Abdominal pain 5. CAD 6. Atrial fibrillation on Eliquis 7. DM Active Medications Acetaminophen (Tylenol -) 650 mg PO Q6H PRN PRN Reason: PAIN Last Admin: 03/27/20 08:29 Dose: 650 mg Documented by: Amoxicillin (Amoxicillin -) 500 mg PO BID [facility] Last Admin: 03/27/20 09:01 Dose: 500 mg Documented by: Apixaban (Eliquis -) 2.5 mg PO BID [facility] Last Admin: 03/27/20 09:01 Dose: 2.5 mg Documented by: Atorvastatin Calcium (Lipitor -) 40 mg PO HS [facility] Last Admin: 03/26/20 21:03 Dose: 40 mg Documented by: Carbamide Perox/Anhydrous Glycerin (Debrox -) 5 drop BID [facility] Stop: 03/29/20 22:01 Last Admin: 03/27/20 09:04 Dose: 5 drop Documented by: Docusate Sodium (Colace -) 100 mg PO DAILY [facility] Last Admin: 03/27/20 09:02 Dose: Not Given Documented by: Sodium Chloride (Normal Saline -) 250 mls @ 3,000 mls/hr IV PRN PRN PRN Reason: Hypotension during Dialysis Stop: 03/26/20 13:12 Levothyroxine Sodium (Synthroid -) 25 mcg PO 0700 [facility] Last Admin: 03/27/20 06:31 Dose: 25 mcg Documented by: Metoprolol Succinate (Toprol Xl -) 100 mg PO DAILY [facility] Last Admin: 03/27/20 09:01 Dose: 100 mg Documented by: Pantoprazole Sodium (Protonix -) 40 mg PO DAILY [facility] Last Admin: 03/27/20 09:01 Dose: 40 mg Documented by: Polyethylene Glycol (Miralax (For Daily Use) -) 17 gm PO BID [facility] Last Admin: 03/27/20 09:01 Dose: Not Given Documented by: Sacubitril/Valsartan (Entresto 24 Mg-26 Mg Tablet) 1 tab PO BID [facility] Last Admin: 03/27/20 09:02 Dose: 1 tab Documented by: Senna/Docusate Sodium (Pericolace -) 1 tablet PO BID [facility] Last Admin: 03/27/20 09:01 Dose: Not Given Documented by: Sevelamer Carbonate (Renvela -) 800 mg PO TIDCM [facility] Last Admin: 03/27/20 17:11 Dose: 800 mg Documented by: Torsemide (Demadex -) 20 mg PO BIDLASIX [facility] Last Admin: 03/27/20 14:32 Dose: 20 mg Documented by: Last Vital Signs Temp Pulse Resp BP Pulse Ox 97.6 F 98 H 18 102/68 96 03/27/20 14:00 03/27/20 14:00 03/27/20 14:00 03/27/20 14:00 03/27/20 14:00 alert in nad Lungs clear heart reg Abd soft nontender Ext no edema IMP ESRD Plan Volume status and electrolytes are within normal limits next planned dialysis is Sunday pain control w/o NSAID as needed may possibly need oral antibiotics if ear pain persists. Discharge planning as per primary team
[2020-03-27] MEDS: ATORVASTATIN CA 40 MG TABLET (FP) PO SCH (22:18)
[2020-03-28] MEDS: LEVOTHYROXINE NA 25 MCG TABLET (FP) PO SCH (06:04)
[2020-03-28] MEDS: TORSEMIDE 20 MG TABLET (FP) PO SCH ×2 (06:04→15:00)
[2020-03-28] MEDS: SENNOSIDES/DOCUSATE COMBO (SENNA PLUS) TABLET (UD) PO SCH ×3 (06:06→21:34)
[2020-03-28 07:18] LABS: CALCIUM 8.5 mg/dL (8.5-10.1); CREATININE 4.3 mg/dL (0.55-1.3); POTASSIUM 3.5 mmol/L (3.5-5.1)
[2020-03-28] MEDS ORDERED: PT OWN MED DRAWER 7, Y5N ONE ×2 (09:12→21:31)
[2020-03-28] MEDS: SEVELAMER CARBONATE 800 MG TAB (FP) PO SCH ×3 (09:53→20:45)
[2020-03-28] MEDS: AMOXICILLIN 500 MG CAPSULE (FP) PO SCH ×2 (09:53→21:34)
[2020-03-28] MEDS: PANTOPRAZOLE 40 MG TABLET PO SCH (09:53)
[2020-03-28] MEDS: SACUBITRIL/VALSARTAN 24 MG-26 MG TABLET PO SCH ×3 (09:53→22:56)
[2020-03-28] MEDS: ACETAMINOPHEN 325 MG TABLET (FP) PO PRN (09:54)
[2020-03-28] MEDS: DOCUSATE SODIUM 100 MG CAPSULE (FP) PO SCH (09:54)
[2020-03-28] MEDS: APIXABAN 2.5 MG TABLET PO SCH ×2 (09:54→21:36)
[2020-03-28] MEDS: POLYETHYLENE GLYCOL 3350 119 GM BTL PO SCH ×3 (09:55→22:18)
[2020-03-28] MEDS: CARBAMIDE PEROXIDE 6.5% OTIC 15 ML BOTTLE AS SCH ×2 (09:56→21:35)
--- NOTE | 2020-03-28 12:24 | PN ---
Progress Note, Physician History of Present Illness: Denies chest pain, dyspnea, orthopnea. Resting comfortably, otalgia improved. - Current Medication List Current Medications: Active Medications Acetaminophen (Tylenol -) 650 mg PO Q6H PRN PRN Reason: PAIN Last Admin: 03/28/20 09:54 Dose: 650 mg Documented by: Amoxicillin (Amoxicillin -) 500 mg PO BID [facility] Last Admin: 03/28/20 09:53 Dose: 500 mg Documented by: Apixaban (Eliquis -) 2.5 mg PO BID [facility] Last Admin: 03/28/20 09:54 Dose: 2.5 mg Documented by: Atorvastatin Calcium (Lipitor -) 40 mg PO HS [facility] Last Admin: 03/27/20 22:18 Dose: 40 mg Documented by: Carbamide Perox/Anhydrous Glycerin (Debrox -) 5 drop BID [facility] Stop: 03/29/20 22:01 Last Admin: 03/28/20 09:56 Dose: 5 drop Documented by: Docusate Sodium (Colace -) 100 mg PO DAILY [facility] Last Admin: 03/28/20 09:54 Dose: 100 mg Documented by: Sodium Chloride (Normal Saline -) 250 mls @ 3,000 mls/hr IV PRN PRN PRN Reason: Hypotension during Dialysis Stop: 03/26/20 13:12 Levothyroxine Sodium (Synthroid -) 25 mcg PO 0700 [facility] Last Admin: 03/28/20 06:04 Dose: 25 mcg Documented by: Metoprolol Succinate (Toprol Xl -) 100 mg PO DAILY [facility] Last Admin: 03/28/20 09:53 Dose: 100 mg Documented by: Pantoprazole Sodium (Protonix -) 40 mg PO DAILY [facility] Last Admin: 03/28/20 09:53 Dose: 40 mg Documented by: Polyethylene Glycol (Miralax (For Daily Use) -) 17 gm PO BID [facility] Last Admin: 03/28/20 09:55 Dose: Not Given Documented by: Sacubitril/Valsartan (Entresto 24 Mg-26 Mg Tablet) 1 tab PO BID [facility] Last Admin: 03/28/20 09:53 Dose: 1 tab Documented by: Senna/Docusate Sodium (Pericolace -) 1 tablet PO BID [facility] Last Admin: 03/28/20 09:54 Dose: 1 tablet Documented by: Sevelamer Carbonate (Renvela -) 800 mg PO TIDCM [facility] Last Admin: 03/28/20 09:53 Dose: 800 mg Documented by: Torsemide (Demadex -) 20 mg PO BIDLASIX [facility] Last Admin: 03/28/20 06:04 Dose: 20 mg Documented by: - Objective Vital Signs: Vital Signs Temperature 97.6 F 03/28/20 09:49 Pulse Rate 91 H 03/28/20 09:49 Respiratory Rate 20 03/28/20 09:49 Blood Pressure 117/62 03/28/20 09:49 O2 Sat by Pulse Oximetry (%) 98 03/28/20 09:49 Constitutional: Yes: No Distress, Calm Neck: Yes: Supple Cardiovascular: Yes: Pulse Irregular Respiratory: Yes: Regular, CTA Bilaterally Gastrointestinal: Yes: Soft, Hypoactive Bowel Sounds Edema: No Labs: CBC, BMP 03/26/20 08:50 03/28/20 05:40 INR, PTT INR 1.45 (0.83-1.09) H 03/23/20 03:30 - ....Imaging EKG: Report Reviewed (Afib LBBB) Problem List - Problems (1) ESRD (end stage renal disease) on dialysis Code(s): N18.6 - END STAGE RENAL DISEASE; Z99.2 - DEPENDENCE ON RENAL DIALYSIS (2) Pleural effusion Code(s): J90 - PLEURAL EFFUSION, NOT ELSEWHERE CLASSIFIED (3) Shortness of breath Code(s): R06.02 - SHORTNESS OF BREATH (4) Acute on chronic systolic and diastolic heart failure, NYHA class 3 Code(s): I50.43 - ACUTE ON CHRONIC COMBINED SYSTOLIC AND DIASTOLIC HRT FAIL (5) Chronic anticoagulation Code(s): Z79.01 - ROUTE SALESPERSON (CURRENT) USE OF ANTICOAGULANTS (6) Diabetes mellitus Code(s): E11.9 - TYPE 2 DIABETES MELLITUS WITHOUT COMPLICATIONS Qualifiers: Diabetes mellitus type: type 2 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 insulin use: without jail use Diabetes mellitus complication status: with kidney complications Diabetes mellitus complication detail: with chronic kidney disease Chronic kidney disease stage: stage 4 (severe) Qualified Code(s): E11.22 - Type 2 diabetes mellitus with diabetic chronic kidney disease; N18.4 - Chronic kidney disease, stage 4 (severe) (7) HLD (hyperlipidemia) Code(s): E78.5 - HYPERLIPIDEMIA, UNSPECIFIED Qualifiers: Hyperlipidemia type: pure hypercholesterolemia Qualified Code(s): E78.00 - Pure hypercholesterolemia, unspecified; E78.0 - Pure hypercholesterolemia (8) HTN (hypertension) Code(s): I10 - ESSENTIAL (PRIMARY) HYPERTENSION Qualifiers: Hypertension type: renovascular hypertension Qualified Code(s): I15.0 - Renovascular hypertension (9) Paroxysmal atrial fibrillation with rapid ventricular response Code(s): I48.0 - PAROXYSMAL ATRIAL FIBRILLATION Assessment/Plan Lexiscan MPI: 04/03/2018 Myopathic myocardium with diffuse moderate global HK LVEF 41% Lexiscan MPI: 05/10/2016 Small mild anterior and inferior ischemia, LVEF 65% 10/03/2018 Echo @ [facility]: Severely decreased LVEF 20%, dilated LV, normal RV size and fxn, mild MR, AE, small pericardial effusion, ANNE Echo: 09/26/2018 Normal LV size with severely decreased LV fxn, normal RV size and fxn, mild GORDON, mild MR, AR, mild-mod TR Echo: 02/15/2018 Moderately decreased LV fxn, mild LAE, mild-mod MR, mod TR RVSP 30-40 mmHg, mild-mod AR and small pericardial effusion Echo: 06/25/2015 conc LVH, with normal LV systolic function mod LOUISE 1.1 cm^2, mild TR, MR, AR 1. Shortness of breath with pleural effusions 2/2 acute on chronic systolic heart failure resolving 2. Dilated cardiomyopathy, HFrEF 3. Abdominal discomfort, ?etiology ?Diverticular disease 4. HTN 5. Hypercholesterolemia 6. CAD s/p PCI/stent, angina pectoris 7. Aortic valve disease - /AR 8. ESRD on HD 9. NIDDM 10. Hypothyroidism 11. AF on DOAC/Eliquis 12. Demand ischemia PLAN: 1. Continue Eliquis 2.5 mg BID 2. Entresto 24/26 mg BID and Toprol XL 100 qd 3. Torsemide 20 mg BID 4. Atorvastatin 40 mg QHS 5. Conservative cardiac management without further intervention 6. Continue Protonix 7. HD and UF per Renal 8. Troponin downtrending 9. UGI series w/o gastric outlet obstruction 10. PT as tolerated with d/c planning, complete abx course for OM
--- NOTE | 2020-03-28 15:17 | PN ---
Progress Note (short form) - Note Progress Note: Subjective: no fever or chills . No BARNARD . has epigastric discomfort. no vomiting , had BM this am Objective: Vital Signs: Last Vital Signs Temp Pulse Resp BP Pulse Ox 97.9 F 85 20 106/62 98 03/28/20 14:00 03/28/20 14:00 03/28/20 14:00 03/28/20 14:00 03/28/20 09:49 Laboratory Results - last 24 hr 03/28/20 05:40 Sodium 140 Potassium 3.5 Chloride 104 Carbon Dioxide 26 Anion Gap 10 BUN 30.0 H Creatinine 4.3 H Est GFR (CKD-EPI)AfAm 9.92 Est GFR (CKD-EPI)NonAf 8.56 Random Glucose 120 H Calcium 8.5 Physical Exam: comfortable , NAD Cv: irreg irreg. Lungs: CTAB Ext: trace edema Abd: soft, mild TTP in epigastric area , ND, NL BS. ASSESSMENT AND PLAN: 89 y/o lady with h/o congenital atrophic kidney, ESRd on HD M/W/ , dilated CM , HFrEF(LVEF 15%), CAD s/p PCI, HLP, , AR , AFIB on Eliquis, NIDDM, history of right partial mastectomy who presented with SOB . she was found to have acute on chronic systolic heart failure 1- Acute on chronic systolic CHF. resolved 2- h/o ESRD 3- h/o DM Now A1c of 6 4- h/o HTN 5- Abdominal discomfort 6- Constipation 7- L otitis media . cerumin plug Plan: - obtain CT of abd to eval this abd pain - cont amoxicillin - use debres in both ears - cont demadex - repeat labs tomorrow - cont enteresto - cont toprol - cont AC - f/u with GI, has appointment with dr. elizalde - f/u with ENT as out pt . apt was made Dipso: Rehab placement if possible Visit type - Emergency Visit Emergency Visit: Yes ED Registration Date: 03/23/20 Care time: The patient presented to the Emergency Department on the above date and was hospitalized for further evaluation of their emergent condition. - New Patient This patient is new to me today: No - Critical Care Critical Care patient: No - Medication Review Med list reviewed for High Risk Meds patients 65 and older: Yes
--- NOTE | 2020-03-28 18:13 | PN ---
Progress Note (short form) - Note Progress Note: Problems 1. Shortness of breath with pleural effusions/CHF 2. ESRD on HD 3. Systolic HF 4. Abdominal pain 5. CAD 6. Atrial fibrillation on Eliquis 7. DM Active Medications Acetaminophen (Tylenol -) 650 mg PO Q6H PRN PRN Reason: PAIN Last Admin: 03/28/20 09:54 Dose: 650 mg Documented by: Amoxicillin (Amoxicillin -) 500 mg PO BID [facility] Last Admin: 03/28/20 09:53 Dose: 500 mg Documented by: Apixaban (Eliquis -) 2.5 mg PO BID [facility] Last Admin: 03/28/20 09:54 Dose: 2.5 mg Documented by: Atorvastatin Calcium (Lipitor -) 40 mg PO HS [facility] Last Admin: 03/27/20 22:18 Dose: 40 mg Documented by: Carbamide Perox/Anhydrous Glycerin (Debrox -) 5 drop BID [facility] Stop: 03/29/20 22:01 Last Admin: 03/28/20 09:56 Dose: 5 drop Documented by: Docusate Sodium (Colace -) 100 mg PO DAILY [facility] Last Admin: 03/28/20 09:54 Dose: 100 mg Documented by: Sodium Chloride (Normal Saline -) 250 mls @ 3,000 mls/hr IV PRN PRN PRN Reason: Hypotension during Dialysis Stop: 03/26/20 13:12 Levothyroxine Sodium (Synthroid -) 25 mcg PO 0700 [facility] Last Admin: 03/28/20 06:04 Dose: 25 mcg Documented by: Metoprolol Succinate (Toprol Xl -) 100 mg PO DAILY [facility] Last Admin: 03/28/20 09:53 Dose: 100 mg Documented by: Pantoprazole Sodium (Protonix -) 40 mg PO DAILY [facility] Last Admin: 03/28/20 09:53 Dose: 40 mg Documented by: Polyethylene Glycol (Miralax (For Daily Use) -) 17 gm PO BID [facility] Last Admin: 03/28/20 09:55 Dose: Not Given Documented by: Sacubitril/Valsartan (Entresto 24 Mg-26 Mg Tablet) 1 tab PO BID [facility] Last Admin: 03/28/20 09:53 Dose: 1 tab Documented by: Senna/Docusate Sodium (Pericolace -) 1 tablet PO BID [facility] Last Admin: 03/28/20 09:54 Dose: 1 tablet Documented by: Sevelamer Carbonate (Renvela -) 800 mg PO TIDCM [facility] Last Admin: 03/28/20 12:00 Dose: 800 mg Documented by: Torsemide (Demadex -) 20 mg PO BIDLASIX [facility] Last Admin: 03/28/20 15:00 Dose: 20 mg Documented by: Last Vital Signs Temp Pulse Resp BP Pulse Ox 97.9 F 85 20 106/62 98 03/28/20 14:00 03/28/20 14:00 03/28/20 14:00 03/28/20 14:00 03/28/20 09:49 alert in nad Lungs clear heart reg Abd soft nontender Ext no edema IMP ESRD Plan HD tomorrow
[2020-03-28] MEDS ORDERED: SODIUM CHLORIDE 250 ML IV PRN (18:15)
[2020-03-28] MEDS: ATORVASTATIN CA 40 MG TABLET (FP) PO SCH ×2 (21:34→22:15)
[2020-03-29] MEDS ORDERED: MELATONIN 5 MG TABLETS PO ONE (02:29)
--- NOTE | 2020-03-29 06:14 | PN ---
Physical Exam: SUBJECTIVE: Patient seen and examined OBJECTIVE: GENERAL: The patient is awake, alert, and fully oriented, in no acute distress. HEAD: Normal with no signs of trauma. EYES: PERRL, extraocular movements intact, sclera anicteric, conjunctiva clear. No ptosis. ENT: Ears normal, nares patent, oropharynx clear without exudates, moist mucous membranes. NECK: Trachea midline, full range of motion, supple. LUNGS: Breath sounds equal, clear to auscultation bilaterally, no wheezes, no crackles, no accessory muscle use. HEART: Regular rate and rhythm, S1, S2 without murmur, rub or gallop. ABDOMEN: Soft, nontender, nondistended, normoactive bowel sounds, no guarding, no rebound, no hepatosplenomegaly, no masses. EXTREMITIES: 2+ pulses, warm, well-perfused, no edema. NEUROLOGICAL: Cranial nerves II through XII grossly intact. Normal speech, gait not observed. PSYCH: Normal mood, normal affect. SKIN: Warm, dry, normal turgor, no rashes or lesions noted Vital Signs Period Temp Pulse Resp BP Sys/Dan Pulse Ox Last 24 Hr 97.4 F-98.1 F 71-93 20-20 96-121/61-82 95-98 Laboratory Results - last 24 hr CBC, BMP 03/26/20 08:50 03/28/20 05:40 Active Medications Acetaminophen (Tylenol -) 650 mg PO Q6H PRN PRN Reason: PAIN Last Admin: 03/28/20 09:54 Dose: 650 mg Documented by: Amoxicillin (Amoxicillin -) 500 mg PO BID [facility] Last Admin: 03/28/20 21:34 Dose: 500 mg Documented by: Apixaban (Eliquis -) 2.5 mg PO BID [facility] Last Admin: 03/28/20 21:36 Dose: 2.5 mg Documented by: Atorvastatin Calcium (Lipitor -) 40 mg PO HS [facility] Last Admin: 03/28/20 22:15 Dose: 40 mg Documented by: Carbamide Perox/Anhydrous Glycerin (Debrox -) 5 drop BID [facility] Stop: 03/29/20 22:01 Last Admin: 03/28/20 21:35 Dose: 5 drop Documented by: Docusate Sodium (Colace -) 100 mg PO DAILY [facility] Last Admin: 08/23/20 09:54 Dose: 100 mg Documented by: Sodium Chloride (Normal Saline -) 250 mls @ 3,000 mls/hr IV PRN PRN PRN Reason: Hypotension during Dialysis Stop: 03/26/20 13:12 Sodium Chloride (Normal Saline -) 250 mls @ 3,000 mls/hr IV PRN PRN PRN Reason: Hypotension during Dialysis Stop: 03/29/20 18:15 Levothyroxine Sodium (Synthroid -) 25 mcg PO 0700 [facility] Last Admin: 03/28/20 06:04 Dose: 25 mcg Documented by: Metoprolol Succinate (Toprol Xl -) 100 mg PO DAILY [facility] Last Admin: 03/28/20 09:53 Dose: 100 mg Documented by: Pantoprazole Sodium (Protonix -) 40 mg PO DAILY [facility] Last Admin: 03/28/20 09:53 Dose: 40 mg Documented by: Polyethylene Glycol (Miralax (For Daily Use) -) 17 gm PO BID [facility] Last Admin: 03/28/20 22:18 Dose: Not Given Documented by: Sacubitril/Valsartan (Entresto 24 Mg-26 Mg Tablet) 1 tab PO BID [facility] Last Admin: 03/28/20 22:56 Dose: 1 tab Documented by: Senna/Docusate Sodium (Pericolace -) 1 tablet PO BID [facility] Last Admin: 03/28/20 21:34 Dose: 1 tablet Documented by: Sevelamer Carbonate (Renvela -) 800 mg PO TIDCM [facility] Last Admin: 03/28/20 20:45 Dose: 800 mg Documented by: Torsemide (Demadex -) 20 mg PO BIDLASIX [facility] Last Admin: 03/28/20 15:00 Dose: 20 mg Documented by: ASSESSMENT/PLAN: 89 year old female patient with past medical history that includes congenital atrophic kidney, ESRD, Hemodialysis on M/W/F schedule, CAD s/p PCI, systolic CHF, AFib on Eliquis, DM, and Right Partial Mastectomy, who presented to the emergency room with shortness of breath. 1. CHF exacerbation secondary to fluid overload secondary to incomplete fluid removal from dialysis - Patient reports mild shortness of breath at night - 96% oxygenation on room air 2. Diarrhea - resolved - The patient reported no diarrhea today 3. AFib - The patient is receiving Eliquis and Metoprolol 4. DM - A1C 6.0% - Random Glucose 162 # FEN - Dialysis MWF, Monitoring Electrolytes, Sodium controlled Renal Diet DVT PPx - Eliquis ATTENDING PHYSICIAN STATEMENT I saw and evaluated the patient. I reviewed the resident's note and discussed the case with the resident. I agree with the resident's findings and plan as documented. SUBJECTIVE: OBJECTIVE: ASSESSMENT AND PLAN:
[2020-03-29] MEDS: TORSEMIDE 20 MG TABLET (FP) PO SCH ×2 (06:30→14:59)
[2020-03-29] MEDS: LEVOTHYROXINE NA 25 MCG TABLET (FP) PO SCH (06:30)
[2020-03-29] MEDS ORDERED: LABETALOL HCL 5 MG/1 ML (100MG/20 ML VIAL) ONE (07:05)
[2020-03-29] MEDS: SEVELAMER CARBONATE 800 MG TAB (FP) PO SCH ×3 (08:08→17:09)
[2020-03-29 08:17] LABS: BLOOD UREA NITROGEN 40.4 mg/dL (7-18); CALCIUM 8.7 mg/dL (8.5-10.1); CREATININE 4.9 mg/dL (0.55-1.3); POTASSIUM 3.8 mmol/L (3.5-5.1)
[2020-03-29] MEDS: APIXABAN 2.5 MG TABLET PO SCH ×2 (13:37→22:43)
[2020-03-29] MEDS: CARBAMIDE PEROXIDE 6.5% OTIC 15 ML BOTTLE AS SCH ×2 (13:37→22:45)
[2020-03-29] MEDS: PANTOPRAZOLE 40 MG TABLET PO SCH (13:37)
[2020-03-29] MEDS: AMOXICILLIN 500 MG CAPSULE (FP) PO SCH ×2 (13:37→22:43)
[2020-03-29] MEDS: SACUBITRIL/VALSARTAN 24 MG-26 MG TABLET PO SCH ×2 (13:37→22:51)
[2020-03-29] MEDS: SENNOSIDES/DOCUSATE COMBO (SENNA PLUS) TABLET (UD) PO SCH ×2 (13:38→22:43)
[2020-03-29] MEDS: POLYETHYLENE GLYCOL 3350 119 GM BTL PO SCH ×2 (13:38→22:43)
[2020-03-29] MEDS: DOCUSATE SODIUM 100 MG CAPSULE (FP) PO SCH (13:38)
--- NOTE | 2020-03-29 14:24 | PN ---
Physical Exam: SUBJECTIVE: Patient seen and examined. Pt complained of worsening abdominal discomfort today. Endorsed to having nausea without vomiting. Had 3 formed BM overnight. Denies fevers, chills, chest pain, abdominal pain, numbness or tingling. OBJECTIVE: Vital Signs Period Temp Pulse Resp BP Sys/Dan Pulse Ox Last 24 Hr 97.4 F-98.1 F 71-97 16-20 96-122/54-82 95-98 GENERAL: AAOx3, in moderate distress. HEENT: NCAT, EOMI. Noted to have cerumen in b/l ears. No discharge or erythema visualized. LUNGS: Bibasilar crackles present. No wheezes. HEART: Regular rate and rhythm, S1, S2 present. No murmurs. ABDOMEN: Obese. Bowel sounds present. Nontender to palpation. Non-distended. EXTREMITIES: Warm, well-perfused. No edema. SKIN: Warm, dry Laboratory Last Values WBC 6.3 K/mm3 (4.0-10.0) 03/26/20 08:50 RBC 3.31 M/mm3 (3.60-5.2) L 03/26/20 08:50 Hgb 11.4 GM/dL (10.7-15.3) 03/26/20 08:50 Hct 34.5 % (32.4-45.2) 03/26/20 08:50 MCV 104.1 fl (80-96) H 03/26/20 08:50 MCH 34.4 pg (25.7-33.7) H 03/26/20 08:50 MCHC 33.0 g/dl (32.0-36.0) 03/26/20 08:50 RDW 14.4 % (11.6-15.6) 03/26/20 08:50 Plt Count 104 K/MM3 (134-434) L 03/26/20 08:50 MPV 10.9 fl (7.5-11.1) 03/26/20 08:50 Absolute Neuts (auto) 5.5 K/mm3 (1.5-8.0) 03/23/20 03:30 Neutrophils % 73.3 % (42.8-82.8) 03/23/20 03:30 Lymphocytes % 15.6 % (8-40) 03/23/20 03:30 Monocytes % 7.8 % (3.8-10.2) 03/23/20 03:30 Eosinophils % 2.6 % (0-4.5) 03/23/20 03:30 Basophils % 0.7 % (0-2.0) 03/23/20 03:30 Nucleated RBC % 0 % (0-0) 03/23/20 03:30 PT with INR 17.20 SEC (9.7-13.0) H 03/23/20 03:30 INR 1.45 (0.83-1.09) H 03/23/20 03:30 PTT (Actin FS) 33.7 SECONDS (25.2-36.5) 03/23/20 03:30 Sodium 134 mmol/L (136-145) L 03/29/20 06:44 Potassium 3.8 mmol/L (3.5-5.1) 03/29/20 06:44 Chloride 98 mmol/L (98-107) 03/29/20 06:44 Carbon Dioxide 24 mmol/L (21-32) 03/29/20 06:44 Anion Gap 12 MMOL/L (8-16) 03/29/20 06:44 BUN 40.4 mg/dL (7-18) H 03/29/20 06:44 Creatinine 4.9 mg/dL (0.55-1.3) H 03/29/20 06:44 Est GFR (CKD-EPI)AfAm 8.47 03/29/20 06:44 Est GFR (CKD-EPI)NonAf 7.31 03/29/20 06:44 POC Glucometer 112 UNITS (80-120) 03/24/20 17:50 Random Glucose 131 mg/dL (74-106) H 03/29/20 06:44 Hemoglobin A1c % 6.0 % (4.2-6.3) 03/24/20 10:10 Calcium 8.7 mg/dL (8.5-10.1) 03/29/20 06:44 Phosphorus 2.7 mg/dL (2.5-4.9) 03/25/20 05:40 Magnesium 1.9 mg/dL (1.8-2.4) 03/26/20 08:50 Total Bilirubin 0.5 mg/dL (0.2-1) 03/23/20 03:30 AST 20 U/L (15-37) 03/23/20 03:30 ALT 36 U/L (13-61) 03/23/20 03:30 Alkaline Phosphatase 113 U/L (45-117) 03/23/20 03:30 Creatine Kinase 60 U/L (26-192) 03/23/20 03:30 Troponin I 0.07 ng/ml (0.00-0.05) H 03/29/20 06:44 B-Natriuretic Peptide 93692.4 pg/ml (5-450) H 03/23/20 03:30 Total Protein 6.8 g/dl (6.4-8.2) 03/23/20 03:30 Albumin 3.8 g/dl (3.4-5.0) 03/23/20 03:30 Vitamin B12 692 pg/ml (193-986) 03/23/20 03:30 Serum Folate > 100 ng/mL (3.1-17.5) H 03/23/20 03:30 TSH 3.49 uIU/ml (0.358-3.74) 03/24/20 06:38 Urine Color Yellow 03/23/20 13:55 Urine Appearance Clear 03/23/20 13:55 Urine pH 5.0 (5.0-8.0) 03/23/20 13:55 Ur Specific [place] 1.020 (1.010-1.035) 03/23/20 13:55 Urine Protein 1+ (NEGATIVE) H 03/23/20 13:55 Urine Glucose (UA) Negative (NEGATIVE) 03/23/20 13:55 Urine Ketones Negative (NEGATIVE) 03/23/20 13:55 Urine Blood Negative (NEGATIVE) 03/23/20 13:55 Urine Nitrite Negative (NEGATIVE) 03/23/20 13:55 Urine Bilirubin Negative (NEGATIVE) 03/23/20 13:55 Urine Urobilinogen 0.2 mg/dL (0.2-1.0) 03/23/20 13:55 Ur Leukocyte Esterase Negative (NEGATIVE) 03/23/20 13:55 Urine WBC (Auto) 0 /uL (0-25.8) 03/23/20 13:55 Urine RBC (Auto) 1 /uL (0-23.9) 03/23/20 13:55 U Pathogenic Cast Auto Negative /lpf (NEGATIVE) 03/23/20 13:55 U Epithel Cells (Auto) 5 /uL (0-25.1) 03/23/20 13:55 COVID-19 (FELIX) Not detected (Not Detected) 03/23/20 03:50 Hep A IgM Ab Confirm Negative (Negative) 03/24/20 10:10 Hepatitis A Ab Total Negative (Negative) 03/24/20 10:10 Hep Bs Antigen Negative (Negative) 03/24/20 10:10 Hep Bs Antibody Reactive (.) 03/24/20 10:10 Hep B Core Total Ab Negative (Negative) 03/24/20 10:10 Hep B Core IgM Ab Negative (Negative) 03/24/20 10:10 Hepatitis Be Antibody Negative (Negative) 03/24/20 10:10 Hepatitis Be Antigen Negative (Negative) 03/24/20 10:10 Hep C Ab Diagnostic <0.1 s/co ratio (0.0-0.9) 03/24/20 10:10 Blood Type A NEGATIVE 03/23/20 09:15 Antibody Screen Negative 03/23/20 09:15 Active Medications Acetaminophen (Tylenol -) 650 mg PO Q6H PRN PRN Reason: PAIN Last Admin: 03/28/20 09:54 Dose: 650 mg Documented by: Amoxicillin (Amoxicillin -) 500 mg PO BID [facility] Last Admin: 03/29/20 13:37 Dose: 500 mg Documented by: Apixaban (Eliquis -) 2.5 mg PO BID [facility] Last Admin: 03/29/20 13:37 Dose: 2.5 mg Documented by: Atorvastatin Calcium (Lipitor -) 40 mg PO HS [facility] Last Admin: 03/28/20 22:15 Dose: 40 mg Documented by: Carbamide Perox/Anhydrous Glycerin (Debrox -) 5 drop BID [facility] Stop: 03/29/20 22:01 Last Admin: 03/29/20 13:37 Dose: 5 drop Documented by: Docusate Sodium (Colace -) 100 mg PO DAILY [facility] Last Admin: 03/29/20 13:38 Dose: 100 mg Documented by: Sodium Chloride (Normal Saline -) 250 mls @ 3,000 mls/hr IV PRN PRN PRN Reason: Hypotension during Dialysis Stop: 03/29/20 18:15 Levothyroxine Sodium (Synthroid -) 25 mcg PO 0700 [facility] Last Admin: 03/29/20 06:30 Dose: 25 mcg Documented by: Metoprolol Succinate (Toprol Xl -) 100 mg PO DAILY [facility] Last Admin: 03/29/20 13:37 Dose: 100 mg Documented by: Pantoprazole Sodium (Protonix -) 40 mg PO DAILY [facility] Last Admin: 03/29/20 13:37 Dose: 40 mg Documented by: Polyethylene Glycol (Miralax (For Daily Use) -) 17 gm PO BID [facility] Last Admin: 03/29/20 13:38 Dose: Not Given Documented by: Sacubitril/Valsartan (Entresto 24 Mg-26 Mg Tablet) 1 tab PO BID [facility] Last Admin: 03/29/20 13:37 Dose: 1 tab Documented by: Senna/Docusate Sodium (Pericolace -) 1 tablet PO BID [facility] Last Admin: 03/29/20 13:38 Dose: 1 tablet Documented by: Sevelamer Carbonate (Renvela -) 800 mg PO TIDCM [facility] Last Admin: 03/29/20 17:09 Dose: 800 mg Documented by: Torsemide (Demadex -) 20 mg PO BIDLASIX [facility] Last Admin: 03/29/20 14:59 Dose: Not Given Documented by: CT abd/pelvis COMPARISON IMAGIN05/11/2014 FINDINGS: LUNG BASES:Atelectasis/infiltration present at the right base. Calcified granuloma seen. There is cardiomegaly. Moderate pericardiac effusion. Moderate right-sided pleural effusion. LIVER: Negative. GALLBLADDER: Negative. BILIARY DUCTS: Negative. PANCREAS: Negative. SPLEEN: Calcified granulomas are identified within the spleen. ADRENALS: Bulky adrenals. KIDNEYS: Atrophic left kidney with a hyperdense cyst within the lower pole measuring 1.9 cm and the likely cyst within the midportion of the kidney cortical measuring 2.2 cm. The right kidney reveals parapelvic cyst within the upper pole. A parenchymal cyst like lesion is identified in the upper pole measuring 2 cm. Hyperdense cystic-like lesion is noted in the midportion of the kidney measuring 1.2 cm. No hydronephrosis or nephrolithiasis. Further evaluation of the advised. AORTA: Calcified plaque. No aneurysm. LYMPH NODES: Negative. BOWEL: The stomach is empty. Oral contrast reaches the colon. There is no evidence to suggest appendicitis. Small bowel loops are normal caliber. No colonic obstruction seen in diverticulosis with no evidence to suggest diverticulitis. No free air/fluid is. Fat-containing paraumbilical hernia with no stranding. PELVIS: The uterus was identified. The bladder is empty. No pelvic sidewall adenopathy is seen. OTHER: Demineralization. Discogenic disease noted. Grade 1 anterolisthesis noted of L3-L4 and L4-5 which is degenerative in nature. There is sclerosis of the sacroiliac joints with some erosions noted on the left suggesting sacroiliitis. Preliminary dictation was generated by the on-call radiologist at the time of this procedure. IMPRESSION: Multiple cystlike lesions within the kidneys, ultrasound investigation is recommended to exclude a solid mass. There is no evidence of hydronephrosis. No evidence of bowel obstruction. Diverticulosis with no evidence to suggest acute diverticulitis. Cardiomegaly with pericardiac effusion as discussed above. Right-sided pleural effusion which appears moderate with atelectasis/infiltration at the right base. Granulomatous disease. ASSESSMENT/PLAN: 89 year old F with PMH ESRD on HD MWF, congenital atrophic kidney, CAD s/p PCI, CHF, Afib (on Eliquis) and DM presented to the ED with shortness of breath. She is currently admitted for CHF exacerbation secondary to fluid overload. CHF exacerbation 2/2 fluid overload and incomplete fluid removal with HD - Pt received HD 03/29. Shortness of breath improved. - c/w torsemide, entresto - Echo reviewed. Small pericardial effusion present (< 1cm). Pleural effusion - CT abd/pelvis as stated above. - Will f/u outpatient Abdominal discomfort likely due to IBS - CT abdomen/pelvis as above. No obstruction seen. - f/u with Dr. Finley outpatient. - c/w colace and miralax, senna/docusate Afib - c/w Eliquis and metoprolol DM - HbA1c 6.0% - Random glucose 131 Earwax - c/w debrox drops b/l ears - c/w amoxicillin - f/u with ENT as outpatient. CAD - c/w lipitor ESRD -HD on M/W/F - Renal consulted. - CT abd/pelvis showed renal cyst. To be f/u as outpatient. FEN -No standing fluids - Monitor and replete electrolytes - Renal diet Ppx - DVT: Eliquis - GI: PPI Dispo: Pending placement in rehab center. Visit type - Emergency Visit Emergency Visit: Yes ED Registration Date: 03/23/20 Care time: The patient presented to the Emergency Department on the above date and was hospitalized for further evaluation of their emergent condition. - New Patient This patient is new to me today: Yes Date on this admission: 03/29/20 - Critical Care Critical Care patient: No - Medication Review Med list reviewed for High Risk Meds patients 65 and older: Yes ATTENDING PHYSICIAN STATEMENT I saw and evaluated the patient. I reviewed the resident's note and discussed the case with the resident. I agree with the resident's findings and plan as documented. SUBJECTIVE: OBJECTIVE: ASSESSMENT AND PLAN:
--- NOTE | 2020-03-29 15:40 | PN ---
Teaching Attending Note Name of Resident: Josiane Morgan ATTENDING PHYSICIAN STATEMENT I saw and evaluated the patient. I reviewed the resident's note and discussed the case with the resident. I agree with the resident's findings and plan as documented. SUBJECTIVE: No fever or chills. Abd discomfort but no pain. No BARNARD , no SOB. OBJECTIVE: seen during HD comfortable , NAD Cv: irreg irreg. Lungs: CTAB Ext: No edema in LEs Abd: soft, NT, ND, NL BS ASSESSMENT AND PLAN: 89 y/o lady with h/o congenital atrophic kidney, ESRd on HD M/W/F , dilated CM , HFrEF(LVEF 15%), CAD s/p PCI, HLP, , AR , AFIB on Eliquis, NIDDM, history of right partial mastectomy who presented with SOB . she was found to have acute on chronic systolic heart failure 1- Acute on chronic systolic CHF. resolved 2- h/o ESRD 3- h/o DM Now A1c of 6 4- h/o HTN 5- Abdominal discomfort 6- Constipation 7- L otitis media . cerumin plug Plan: - CT of abd with no etiolgoy to explain abd discomfort. f/u with GI as out pt ( apt with Dr. elizalde on 04/13 ) - renal cysts need to be followed as out pt for further investigations, will refer to renal as out pt . pt made aware - pericardial effusion on CT scan . Echo from 12/23 with no effusion , will get Echo . d/w Dr. Brandon - R lung base atelectasis/ possible calcified granumomatous disease to fe followed as out pt . refer to pulm. pt made aware - cont amoxi for otitis media - use debres in both ears - cont demadex - cont enteresto - cont toprol - cont AC - f/u with ENT as out pt . apt was made for tomorrow, but if she is here can change. Dipso: plan for rehab placement .
--- NOTE | 2020-03-29 15:55 | PN ---
Progress Note, Physician Chief Complaint: Shortness of breath History of Present Illness: Seen and examined at the bedside pt currently getting dialysis. BP is OK, access functioning well goal UF is 2L reports having slight headache but ear pain has improved no sob, cp, fever, chills, N/V/D - Current Medication List Current Medications: Active Medications Acetaminophen (Tylenol -) 650 mg PO Q6H PRN PRN Reason: PAIN Last Admin: 03/28/20 09:54 Dose: 650 mg Documented by: Amoxicillin (Amoxicillin -) 500 mg PO BID [facility] Last Admin: 03/29/20 13:37 Dose: 500 mg Documented by: Apixaban (Eliquis -) 2.5 mg PO BID [facility] Last Admin: 03/29/20 13:37 Dose: 2.5 mg Documented by: Atorvastatin Calcium (Lipitor -) 40 mg PO HS [facility] Last Admin: 03/28/20 22:15 Dose: 40 mg Documented by: Carbamide Perox/Anhydrous Glycerin (Debrox -) 5 drop BID [facility] Stop: 03/29/20 22:01 Last Admin: 03/29/20 13:37 Dose: 5 drop Documented by: Docusate Sodium (Colace -) 100 mg PO DAILY [facility] Last Admin: 03/29/20 13:38 Dose: 100 mg Documented by: Sodium Chloride (Normal Saline -) 250 mls @ 3,000 mls/hr IV PRN PRN PRN Reason: Hypotension during Dialysis Stop: 03/26/20 13:12 Sodium Chloride (Normal Saline -) 250 mls @ 3,000 mls/hr IV PRN PRN PRN Reason: Hypotension during Dialysis Stop: 03/29/20 18:15 Levothyroxine Sodium (Synthroid -) 25 mcg PO 0700 [facility] Last Admin: 03/29/20 06:30 Dose: 25 mcg Documented by: Metoprolol Succinate (Toprol Xl -) 100 mg PO DAILY [facility] Last Admin: 03/29/20 13:37 Dose: 100 mg Documented by: Pantoprazole Sodium (Protonix -) 40 mg PO DAILY [facility] Last Admin: 03/29/20 13:37 Dose: 40 mg Documented by: Polyethylene Glycol (Miralax (For Daily Use) -) 17 gm PO BID [facility] Last Admin: 03/29/20 13:38 Dose: Not Given Documented by: Prochlorperazine Maleate (Compazine -) 10 mg PO ONCE ONE Stop: 03/29/20 14:41 Sacubitril/Valsartan (Entresto 24 Mg-26 Mg Tablet) 1 tab PO BID [facility] Last Admin: 03/29/20 13:37 Dose: 1 tab Documented by: Senna/Docusate Sodium (Pericolace -) 1 tablet PO BID [facility] Last Admin: 03/29/20 13:38 Dose: 1 tablet Documented by: Sevelamer Carbonate (Renvela -) 800 mg PO TIDCM [facility] Last Admin: 03/29/20 13:38 Dose: 800 mg Documented by: Torsemide (Demadex -) 20 mg PO BIDLASIX [facility] Last Admin: 03/29/20 14:59 Dose: Not Given Documented by: - Objective Vital Signs: Vital Signs Temperature 98 F 03/29/20 13:00 Pulse Rate 97 H 03/29/20 13:00 Respiratory Rate 16 03/29/20 13:00 Blood Pressure 118/70 03/29/20 13:00 O2 Sat by Pulse Oximetry (%) 98 03/29/20 13:00 Constitutional: Yes: No Distress, Calm HENT: Yes: Atraumatic Neck: Yes: Supple Cardiovascular: Yes: Regular Rate and Rhythm Respiratory: Yes: Regular Gastrointestinal: Yes: Soft Extremities: No: Cyanosis Edema: No Neurological: Yes: Alert Labs: CBC, BMP 03/26/20 08:50 03/29/20 06:44 INR, PTT INR 1.45 (0.83-1.09) H 03/23/20 03:30 Assessment/Plan 89 year old woman with history of ESRD on HD (MWF) CHF with systolic dysfunction, CAD, Afib on eliquis, DM who presented from home with shortness of breath. 1. Shortness of breath with pleural effusions/CHF 2. ESRD on HD 3. Systolic HF 4. Abdominal pain 5. CAD 6. Atrial fibrillation on Eliquis 7. DM Tolerating dialysis well today with UF goal of 2L Volume status and electrolytes are within normal limits next planned dialysis is Sunday pain control w/o NSAID as needed On debrox and amoxicillin for ear pain Continue entresto, torsemide and metoprolol. Discharge planning as per primary team Miguel Ramirez DO
[2020-03-29] MEDS ORDERED: PROCHLORPERAZINE MALEATE 5 MG TABLET PO ONE (16:00)
--- NOTE | 2020-03-29 17:17 | PN ---
Progress Note, Physician Chief Complaint: Events noted Seem during dialysis History of Present Illness: Patient was seen and examined. Awake and alert. Chart was reviewed Denies chest pain, SOB or palpitations CT scan reports moderate pericardial effusion and moderate pleural effusion - Current Medication List Current Medications: Active Medications Acetaminophen (Tylenol -) 650 mg PO Q6H PRN PRN Reason: PAIN Last Admin: 03/28/20 09:54 Dose: 650 mg Documented by: Amoxicillin (Amoxicillin -) 500 mg PO BID [facility] Last Admin: 03/29/20 13:37 Dose: 500 mg Documented by: Apixaban (Eliquis -) 2.5 mg PO BID [facility] Last Admin: 03/29/20 13:37 Dose: 2.5 mg Documented by: Atorvastatin Calcium (Lipitor -) 40 mg PO HS [facility] Last Admin: 03/28/20 22:15 Dose: 40 mg Documented by: Carbamide Perox/Anhydrous Glycerin (Debrox -) 5 drop BID [facility] Stop: 03/29/20 22:01 Last Admin: 03/29/20 13:37 Dose: 5 drop Documented by: Docusate Sodium (Colace -) 100 mg PO DAILY [facility] Last Admin: 03/29/20 13:38 Dose: 100 mg Documented by: Sodium Chloride (Normal Saline -) 250 mls @ 3,000 mls/hr IV PRN PRN PRN Reason: Hypotension during Dialysis Stop: 03/29/20 18:15 Levothyroxine Sodium (Synthroid -) 25 mcg PO 0700 [facility] Last Admin: 03/29/20 06:30 Dose: 25 mcg Documented by: Metoprolol Succinate (Toprol Xl -) 100 mg PO DAILY [facility] Last Admin: 03/29/20 13:37 Dose: 100 mg Documented by: Pantoprazole Sodium (Protonix -) 40 mg PO DAILY [facility] Last Admin: 03/29/20 13:37 Dose: 40 mg Documented by: Polyethylene Glycol (Miralax (For Daily Use) -) 17 gm PO BID [facility] Last Admin: 03/29/20 13:38 Dose: Not Given Documented by: Sacubitril/Valsartan (Entresto 24 Mg-26 Mg Tablet) 1 tab PO BID [facility] Last Admin: 03/29/20 13:37 Dose: 1 tab Documented by: Senna/Docusate Sodium (Pericolace -) 1 tablet PO BID [facility] Last Admin: 03/29/20 13:38 Dose: 1 tablet Documented by: Sevelamer Carbonate (Renvela -) 800 mg PO TIDCM [facility] Last Admin: 03/29/20 17:09 Dose: 800 mg Documented by: Torsemide (Demadex -) 20 mg PO BIDLASIX [facility] Last Admin: 03/29/20 14:59 Dose: Not Given Documented by: - Objective Vital Signs: Vital Signs Temperature 98 F 03/29/20 13:00 Pulse Rate 97 H 03/29/20 13:00 Respiratory Rate 16 03/29/20 13:00 Blood Pressure 118/70 03/29/20 13:00 O2 Sat by Pulse Oximetry (%) 98 03/29/20 13:00 Eyes: Yes: PERRL HENT: Yes: Atraumatic Neck: Yes: Supple Cardiovascular: Yes: Regular Rate and Rhythm, S1, S2 Respiratory: Yes: Diminished Gastrointestinal: Yes: Normal Bowel Sounds, Soft. No: Tenderness Edema: No Additional Findings/Remarks: - Review of Systems Constitutional: denies: Chills, Fever Cardiovascular: reports: Shortness of Breath. denies: Chest Pain, Palpitations Respiratory: reports: SOB. denies: Cough, Hemoptysis, Orthopnea, PND, Wheezing Gastrointestinal: reports: Abdominal Pain. denies: Constipation, Diarrhea, Melena, Nausea, Rectal Bleeding, Vomiting Neurological: denies: Dizziness, Headache, Seizure, Syncope Labs: CBC, BMP 03/26/20 08:50 03/29/20 06:44 Problem List - Problems (1) ESRD (end stage renal disease) on dialysis Code(s): N18.6 - END STAGE RENAL DISEASE; Z99.2 - DEPENDENCE ON RENAL DIALYSIS (2) Pleural effusion Code(s): J90 - PLEURAL EFFUSION, NOT ELSEWHERE CLASSIFIED (3) Shortness of breath Code(s): R06.02 - SHORTNESS OF BREATH (4) Acute on chronic diastolic heart failure Code(s): I50.33 - ACUTE ON CHRONIC DIASTOLIC (CONGESTIVE) HEART FAILURE (5) Acute on chronic systolic and diastolic heart failure, NYHA class 3 Code(s): I50.43 - ACUTE ON CHRONIC COMBINED SYSTOLIC AND DIASTOLIC HRT FAIL (6) [id number] kidney injury Code(s): N17.9 - ACUTE KIDNEY FAILURE, UNSPECIFIED; N18.9 - CHRONIC KIDNEY DISEASE, UNSPECIFIED Qualifiers: Acute renal failure type: unspecified (7) Anemia Code(s): D64.9 - ANEMIA, UNSPECIFIED Qualifiers: Anemia type: due to chronic kidney disease Chronic kidney disease stage: on chronic dialysis Qualified Code(s): N18.6 - End stage renal disease; D63.1 - Anemia in chronic kidney disease; Z99.2 - Dependence on renal dialysis (8) Aortic stenosis, moderate Code(s): I35.0 - NONRHEUMATIC AORTIC (VALVE) STENOSIS (9) Demand ischemia Code(s): I24.8 - OTHER FORMS OF ACUTE ISCHEMIC HEART DISEASE (10) Diabetes mellitus Code(s): E11.9 - TYPE 2 DIABETES MELLITUS WITHOUT COMPLICATIONS Qualifiers: Diabetes mellitus type: type 2 Diabetes mellitus intermediate project manager insulin use: without nursing home use Diabetes mellitus complication status: with kidney complications Diabetes mellitus complication detail: with chronic kidney disease Chronic kidney disease stage: stage 4 (severe) Qualified Code(s): E11.22 - Type 2 diabetes mellitus with diabetic chronic kidney disease; N18.4 - Chronic kidney disease, stage 4 (severe) (11) Diverticulitis Code(s): K57.92 - DVTRCLI OF INTEST, PART UNSP, W/O PERF OR ABSCESS W/O BLEED (12) HLD (hyperlipidemia) Code(s): E78.5 - HYPERLIPIDEMIA, UNSPECIFIED Qualifiers: Hyperlipidemia type: pure hypercholesterolemia Qualified Code(s): E78.00 - Pure hypercholesterolemia, unspecified; E78.0 - Pure hypercholesterolemia (13) HTN (hypertension) Code(s): I10 - ESSENTIAL (PRIMARY) HYPERTENSION Qualifiers: Hypertension type: renovascular hypertension Qualified Code(s): I15.0 - Renovascular hypertension (14) Paroxysmal atrial fibrillation with rapid ventricular response Code(s): I48.0 - PAROXYSMAL ATRIAL FIBRILLATION (15) Pericardial effusion Code(s): I31.3 - PERICARDIAL EFFUSION (NONINFLAMMATORY) Assessment/Plan 1. Shortness of breath with pleural effusions due to acute on chronic systolic heart failure 2. Dilated cardiomyopath ?Diverticular disease 4. HTN 5. Hypercholesterolemia 6. CAD s/p PCI/stent, angina pectoris 7. Aortic valve disease - /AR 8. ESRD on HD 9. NIDDM 10. Hypothyroidism 11. AF on DOAC/Eliquis 12. Demand ischemia PLAN: 1. Continue Eliquis 2.5 mg BID 2. Entresto 24/26 mg BID and Toprol XL 100 qd 3. Torsemide 20 mg BID 4. Atorvastatin 40 mg QHS 5. Conservative cardiac management without further intervention 6. Echocardiography to assess pericardial effusion 7. HD and UF per Renal Cabrera Brandon MD
--- NOTE | 2020-03-29 17:47 | ECHO ---
Name: LUCA ECHEVARRIA Exam:Adult Echocardiogram Study Date: 03/29/2020 03:56 PM Age: 89 yrs Reason For Study: Pericardial Effusion Height: 63 in Weight: 155 lb BSA: 1.7 m2 MMode/2D Measurements & Calculations IVSd: 0.91 cm Ao root diam: 3.0 cm LVIDd: 5.9 cm LA dimension: 3.6 cm LVIDs: 4.8 cm ACS: 1.3 cm LVPWd: 0.91 cm EDV(Teich): 174.7 ml LVOT diam: 2.0 cm ESV(Teich): 107.4 ml LVLd ap4: 7.2 cm SV(MOD-sp4): 51.0 ml EDV(MOD-sp4): 149.0 ml LVLs ap4: 6.7 cm ESV(MOD-sp4): 98.0 ml LAV (MOD-bp): 80.0 ml TAPSE: 0.94 cm RV S Rex: 5.7 cm/sec Doppler Measurements & Calculations MV E max rex: 107.5 cm/sec Ao V2 max: 170.4 cm/sec MV dec time: 0.19 sec Ao max P.6 mmHg Ao V2 mean: 119.0 cm/sec Ao mean P.5 mmHg Ao V2 VTI: 34.4 cm LOUISE(I,D): 1.8 cm2 AI P1/2t: 388.2 msec LOUISE(V,D): 1.9 cm2 AI max rex: 330.3 cm/sec LV V1 max P.3 mmHg AI max P.6 mmHg LV V1 mean P.1 mmHg AI dec slope: 249.2 cm/sec2 LV V1 max: 103.1 cm/sec LV V1 mean: 66.3 cm/sec LV V1 VTI: 19.8 cm MR max rex: 372.5 cm/sec SV(LVOT): 61.6 ml MR max P.7 mmHg TR max rex: 235.1 cm/sec PA V2 max: 36.6 cm/sec TR max P.2 mmHg PA max P.1 mmHg PA acc slope: 420.5 cm/sec2 PA acc time: 0.11 sec Med Peak E' Rex: 2.9 cm/sec PA pr(Accel): 31.5 mmHg Med E/e': 37.4 Lat Peak E' Rex: 6.5 cm/sec Lat E/e': 16.6 Pulm Sys Rex: 64.5 cm/sec Procedure A complete two-dimensional transthoracic echocardiogram was performed (2D, M-mode, Doppler and color flow Doppler). Left Ventricle The left ventricle is normal in size. Left ventricular systolic function is severely reduced. Ejectio n Fraction = 30-35%. There is severe global hypokinesis of the left ventricle. Right Ventricle The right ventricle is normal size. The right ventricular systolic function is mildly reduced. Atria The left atrium is moderately dilated. The right atrium is moderately dilated. Mitral Valve There is mild mitral annular calcification. There is mild to moderate mitral regurgitation. Tricuspid Valve The tricuspid valve is normal in structure and function. There is moderate tricuspid regurgitation. P ASP is at least 29 mmHg if RA pressure is assumed 3 mmHg. Aortic Valve There is moderate aortic sclerosis.;. Mild to moderate aortic regurgitation. Pulmonic Valve The pulmonic valve is not well visualized. Great Vessels The aortic root is normal size. Pericardium/Pleura Small pericardial effusion (<1cm). There is a pleural effusion present. Interpretation Summary The left ventricle is normal in size. Left ventricular systolic function is severely reduced. There is severe global hypokinesis of the left ventricle. Ejection Fraction = 30-35%. The right ventricular systolic function is mildly reduced. The left atrium is moderately dilated. The right atrium is moderately dilated. There is mild mitral annular calcification. There is mild to moderate mitral regurgitation. There is moderate tricuspid regurgitation. PASP is at least 29 mmHg if RA pressure is assumed 3 mmHg There is moderate aortic sclerosis. Mild to moderate aortic regurgitation. Small pericardial effusion (<1cm) There is a pleural effusion present. Cabrera Brandon MD 03/29/2020 05:47 PM
[2020-03-29] MEDS: ATORVASTATIN CA 40 MG TABLET (FP) PO SCH (22:43)
[2020-03-30] MEDS: LEVOTHYROXINE NA 25 MCG TABLET (FP) PO SCH (06:23)
[2020-03-30] MEDS: TORSEMIDE 20 MG TABLET (FP) PO SCH ×2 (06:23→13:06)
--- NOTE | 2020-03-30 06:48 | PN ---
Progress Note (short form) - Note Progress Note: Chief complaint: Events noted, notes reviewed, sitting in bed having breakfast, denies any chest discomfort, reports dyspnea but clinically improved History of Present Illness: Seen and examined on telemetry. Events noted, notes reviewed, sitting in bed having breakfast, denies any chest discomfort, reports dyspnea but clinically improved Echocardiography performed yesterday revealed severe reduction in left ventricular systolic function with estimated LVEF between 30-35%, mildly reduced right ventricular systolic function, moderate bi-atrial dilatation, mild to moderate mitral valve regurgitation, moderate tricuspid valve regurgitation with calculated RVSP of 29 mmHg, mild to moderate aortic valve regurgitation, small pericardial effusion Medical therapy currently includes: Current Medications Generic Name Dose Route Start Last Admin Trade Name Freq PRN Reason Stop Dose Admin Acetaminophen 650 mg 03/26/20 14:49 03/28/20 09:54 Tylenol - PO 650 mg Q6H PRN Administration PAIN Amoxicillin 500 mg 03/26/20 22:00 03/29/20 22:43 Amoxicillin - PO 500 mg BID ELHAM Administration Apixaban 2.5 mg 03/23/20 10:30 03/29/20 22:43 Eliquis - PO 2.5 mg BID ELHAM Administration Atorvastatin Calcium 40 mg 03/23/20 22:00 03/29/20 22:43 Lipitor - PO 40 mg HS ELHAM Administration Docusate Sodium 100 mg 03/24/20 12:45 03/29/20 13:38 Colace - PO 100 mg DAILY ELHAM Administration Sodium Chloride 250 mls @ 3,000 mls/hr 03/28/20 18:15 Normal Saline - IV 03/29/20 18:15 PRN PRN Hypotension during Dialysis Levothyroxine Sodium 25 mcg 03/23/20 10:30 03/30/20 06:23 Synthroid - PO 25 mcg 0700 ELHAM Administration Metoprolol Succinate 100 mg 03/25/20 10:00 03/29/20 13:37 Toprol Xl - PO 100 mg DAILY ELHAM Administration Pantoprazole Sodium 40 mg 03/23/20 16:30 03/29/20 13:37 Protonix - PO 40 mg DAILY ELHAM Administration Polyethylene Glycol 17 gm 03/24/20 12:45 03/29/20 22:43 Miralax (For Daily Use) - PO 17 grams BID ELHAM Administration Sacubitril/Valsartan 1 tab 03/24/20 22:00 03/29/20 22:51 Entresto 24 Mg-26 Mg Tablet PO Not Given BID ELHAM Senna/Docusate Sodium 1 tablet 03/24/20 22:00 03/29/20 22:43 Pericolace - PO 1 tablet BID ELHAM Administration Sevelamer Carbonate 800 mg 03/23/20 12:00 03/29/20 17:09 Renvela - PO 800 mg TIDCM ELHAM Administration Torsemide 20 mg 03/23/20 14:00 03/30/20 06:23 Demadex - PO 20 mg BIDLASIX ELHAM Administration Review of Systems - Review of Systems Constitutional: denies: Chills or Fever Cardiovascular: as noted above Gastrointestinal: denies: Nausea, Vomiting, Diarrhea, Constipation or Abdominal Pain Genitourinary: No symptoms reported Neurological: No symptoms reported Physical Examination: Vital Signs: Last Vital Signs Temp Pulse Resp BP Pulse Ox 97.8 F 73 16 105/56 L 95 03/30/20 02:00 03/30/20 05:35 03/30/20 05:35 03/30/20 05:35 03/30/20 05:35 Intake & Output 03/27/20 03/28/20 03/29/20 03/30/20 23:59 23:59 23:59 23:59 Intake Total 144 378 4768 [place] 36720 Balance 970 420 -[id number] Neck: Supple negative JVD no bruit appreciated Heart: S1 and S2 Regular Rate and Rhythm Lungs: Diminished Breath Sounds at the Bases Abdomen: Soft benign normoactive bowel sounds Extremities: Negative edema Lab Data: CBC, BMP 03/30/20 06:40 03/30/20 06:40 Troponin, BNP 03/29/20 06:44 Troponin I 0.07 H CBC, BMP 03/26/20 08:50 03/29/20 06:44 Hepatic Panel Total Bilirubin 0.5 mg/dL (0.2-1) 03/23/20 03:30 AST 20 U/L (15-37) 03/23/20 03:30 ALT 36 U/L (13-61) 03/23/20 03:30 Alkaline Phosphatase 113 U/L (45-117) 03/23/20 03:30 Albumin 3.8 g/dl (3.4-5.0) 03/23/20 03:30 INR, PTT INR 1.45 (0.83-1.09) H 03/23/20 03:30 ASSESSMENT: 1. Acute on chronic class II [place] [employer] classification left v entricular failure related to systolic/diastolic left ventricular dysfunction (dilated cardiomyopathy), clinically resolving 2. Coronary artery disease post percutaneous coronary intervention stenting with evidence of demand ischemic injury angina pectoris 3. Paroxysmal atrial fibrillation/paroxysmal atrial flutter currently on anticoagulation therapy with DOAC's/Eliquis, [id number] score of 6 4. Hypertensive cardiovascular disease 5. Diabetes mellitus 6. Hypercholesterolemia 7. Chronic kidney disease on HD 8. Hypothyroidism 9. Anemia PLAN: 1. Continue Toprol-XL therapy and dose titration as needed, hemodynamics tolerating 2. Continue Entresto therapy and dose titration as needed, hemodynamics tolerating 3. Continue Lipitor therapy 4. Continue Demadex therapy 5. Continue Eliquis therapy at the above noted dosage 6. HD as per renal service 7. As outlined in the prior notes and as per discussion with the patient and her family, plan to continue conservative medical management without any additional intervention Tari Ruiz M.D.
[2020-03-30 07:28] LABS: BASO % 1.1 % (0-2.0); EOS % 2.9 % (0-4.5); HEMATOCRIT 39.6 % (32.4-45.2); HEMOGLOBIN 12.9 GM/dL (10.7-15.3); MCH 33.4 pg (25.7-33.7); MCHC 32.5 g/dl (32.0-36.0); MEAN CELL VOLUME 102.8 fl (80-96); MONO % 8.9 % (3.8-10.2); NEUT % 63.1 % (42.8-82.8); PLATELET COUNT 108 K/MM3 (134-434); RBC 3.86 M/mm3 (3.60-5.2); RDW 14.4 % (11.6-15.6); WHITE BLOOD COUNT 6.5 K/mm3 (4.0-10.0)
[2020-03-30 07:52] LABS: BLOOD UREA NITROGEN 18.9 mg/dL (7-18); CREATININE 3.3 mg/dL (0.55-1.3); MAGNESIUM 2.2 mg/dL (1.8-2.4); PHOSPHOROUS 2.6 mg/dL (2.5-4.9); POTASSIUM 4.2 mmol/L (3.5-5.1)
[2020-03-30] MEDS: SEVELAMER CARBONATE 800 MG TAB (FP) PO SCH ×3 (07:55→17:16)
[2020-03-30] MEDS ORDERED: CALCIUM CHLORIDE 10% 1 GM/10 ML *VIAL IVPB ONE (09:00)
[2020-03-30] MEDS: APIXABAN 2.5 MG TABLET PO SCH ×2 (09:37→21:47)
[2020-03-30] MEDS: PANTOPRAZOLE 40 MG TABLET PO SCH (09:37)
[2020-03-30] MEDS: SENNOSIDES/DOCUSATE COMBO (SENNA PLUS) TABLET (UD) PO SCH ×2 (09:37→21:47)
[2020-03-30] MEDS: POLYETHYLENE GLYCOL 3350 119 GM BTL PO SCH ×2 (09:37→21:47)
[2020-03-30] MEDS: DOCUSATE SODIUM 100 MG CAPSULE (FP) PO SCH (09:37)
[2020-03-30] MEDS: SACUBITRIL/VALSARTAN 24 MG-26 MG TABLET PO SCH ×2 (09:38→21:48)
[2020-03-30] MEDS: AMOXICILLIN 500 MG CAPSULE (FP) PO SCH ×2 (09:38→21:46)
--- NOTE | 2020-03-30 09:40 | PN ---
Teaching Attending Note Name of Resident: Shanda Erickson ATTENDING PHYSICIAN STATEMENT I saw and evaluated the patient. I reviewed the resident's note and discussed the case with the resident. I agree with the resident's findings and plan as documented. SUBJECTIVE: Patient has no new complains, comfortable with NAD. OBJECTIVE: Vital Signs Temperature 97.7 F 03/30/20 09:02 Pulse Rate 78 03/30/20 09:02 Respiratory Rate 16 03/30/20 09:02 Blood Pressure 96/45 L 03/30/20 09:02 O2 Sat by Pulse Oximetry (%) 95 03/30/20 09:02 PE: per resident's note DEVIKA 3 CBCD WBC 6.5 K/mm3 (4.0-10.0) 03/30/20 06:40 RBC 3.86 M/mm3 (3.60-5.2) 03/30/20 06:40 Hgb 12.9 GM/dL (10.7-15.3) 03/30/20 06:40 Hct 39.6 % (32.4-45.2) 03/30/20 06:40 MCV 102.8 fl (80-96) H 03/30/20 06:40 MCHC 32.5 g/dl (32.0-36.0) 03/30/20 06:40 RDW 14.4 % (11.6-15.6) 03/30/20 06:40 Plt Count 108 K/MM3 (134-434) L 03/30/20 06:40 MPV 11.0 fl (7.5-11.1) 03/30/20 06:40 CMP Sodium 137 mmol/L (136-145) 03/30/20 06:40 Potassium 4.2 mmol/L (3.5-5.1) 03/30/20 06:40 Chloride 100 mmol/L (98-107) 03/30/20 06:40 Carbon Dioxide 29 mmol/L (21-32) 03/30/20 06:40 Anion Gap 9 MMOL/L (8-16) 03/30/20 06:40 BUN 18.9 mg/dL (7-18) H 03/30/20 06:40 Creatinine 3.3 mg/dL (0.55-1.3) H 03/30/20 06:40 Random Glucose 130 mg/dL (74-106) H 03/30/20 06:40 Calcium 6.0 mg/dL (8.5-10.1) L* 03/30/20 06:40 Total Bilirubin 0.5 mg/dL (0.2-1) 03/23/20 03:30 AST 20 U/L (15-37) 03/23/20 03:30 ALT 36 U/L (13-61) 03/23/20 03:30 Alkaline Phosphatase 113 U/L (45-117) 03/23/20 03:30 Total Protein 6.8 g/dl (6.4-8.2) 03/23/20 03:30 Albumin 3.8 g/dl (3.4-5.0) 03/23/20 03:30 CARDIAC ENZYMES Creatine Kinase 60 U/L (26-192) 03/23/20 03:30 Troponin I 0.07 ng/ml (0.00-0.05) H 03/29/20 06:44 Current Medications Generic Name Dose Route Start Last Admin Trade Name Shadiq PRN Reason Stop Dose Admin Acetaminophen 650 mg 03/26/20 14:49 03/28/20 09:54 Tylenol - PO 650 mg Q6H PRN Administration PAIN Amoxicillin 500 mg 03/26/20 22:00 03/30/20 09:38 Amoxicillin - PO 500 mg BID ELHAM Administration Apixaban 2.5 mg 03/23/20 10:30 03/30/20 09:37 Eliquis - PO 2.5 mg BID ELHAM Administration Atorvastatin Calcium 40 mg 03/23/20 22:00 03/29/20 22:43 Lipitor - PO 40 mg HS ELHAM Administration Calcitriol 0.25 mcg 03/30/20 10:00 Rocaltrol - PO DAILY ELHAM Calcium Chloride 1 gm 03/30/20 09:00 Calcium Chloride 10% - IVPB 03/30/20 09:01 ONCE ONE Docusate Sodium 100 mg 03/24/20 12:45 03/30/20 09:37 Colace - PO 100 mg DAILY ELHAM Administration Sodium Chloride 250 mls @ 3,000 mls/hr 03/28/20 18:15 Normal Saline - IV 03/29/20 18:15 PRN PRN Hypotension during Dialysis Levothyroxine Sodium 25 mcg 03/23/20 10:30 03/30/20 06:23 Synthroid - PO 25 mcg 0700 ELHAM Administration Metoprolol Succinate 100 mg 03/25/20 10:00 03/30/20 09:38 Toprol Xl - PO Not Given DAILY ELHAM Pantoprazole Sodium 40 mg 03/23/20 16:30 03/30/20 09:37 Protonix - PO 40 mg DAILY ELHAM Administration Polyethylene Glycol 17 gm 03/24/20 12:45 03/30/20 09:37 Miralax (For Daily Use) - PO Not Given BID ELHAM Sacubitril/Valsartan 1 tab 03/24/20 22:00 03/30/20 09:38 Entresto 24 Mg-26 Mg Tablet PO Not Given BID ELHAM Senna/Docusate Sodium 1 tablet 03/24/20 22:00 03/30/20 09:37 Pericolace - PO 1 tablet BID ELHAM Administration Sevelamer Carbonate 800 mg 03/23/20 12:00 03/30/20 07:55 Renvela - PO 800 mg TIDCM ELHAM Administration Torsemide 20 mg 03/23/20 14:00 03/30/20 06:23 Demadex - PO 20 mg BIDLASIX ELHAM Administration Home Medications Medication Instructions Recorded Atorvastatin Ca [Lipitor] 40 mg PO HS 03/19/14 Levothyroxine [Synthroid -] 25 mcg PO DAILY 02/13/18 Apixaban [Eliquis] 2.5 mg PO BID #60 tablet 10/02/18 Sevelamer HCl 800 mg PO TID 08/01/19 Torsemide 20 mg PO BID 03/20/20 Docusate Sodium [Colace -] 100 mg PO DAILY 7 Days #7 capsule 03/25/20 Metoprolol Succinate [Toprol XL -] 100 mg PO DAILY 30 Days #30 03/25/20 tab.sr.24h Sacubitril/Valsartan [Entresto 24 1 tab PO BID 30 Days #60 tablet 03/25/20 mg-26 mg Tablet] Amoxicillin - [Amoxicillin 500mg 500 mg PO Q12H #14 capsule 03/26/20 Capsule -] Carbamide Peroxide 6.5% [Debrox -] 5 drop BID #1 bottle 03/26/20 Microbiology 03/23/20 13:55 Urine - Urine Clean Catch Urine Culture - Final Normal Urogenital Mallory ASSESSMENT AND PLAN: This patient is an 89yof with Pmhx of congenital atrophic kidney, ESRD on HD M/W/F , dilated CM , HFrEF(LVEF 15%), CAD s/p PCI, HLP, , AR, AFIB on Eliquis, NIDDM, Hx of right partial mastectomy who presented with SOB and she was found to have acute on chronic systolic heart failure. # Acute on chronic systolic CHF. resolved ; pericardial effusion on CT scan . Echo from 12/23 with no effusion , will get Echo . d/w Dr. Brandon cont demadex, entersto, toprol, Ac, #ESRD on HD, renal cysts on CT need to be followed as out pt for further investigations, will refer to renal as out pt . pt made aware #T2DM with A1c of 6 # HTN #Abdominal discomfort: improved, On CT no acute pathology, f/u with GI as out pt (apt with Dr. elizalde on 04/13 ) #Constipation #L otitis media , cerumin plug, on Amoxicillin and debrox ,f/u with ENT as out pt #R lung base atelectasis/ possible calcified granumomatous disease to fe followed as out pt . refer to pulm. pt made aware DVT Px: Eliquis Waiting for insurance authorization for rehab placement .
[2020-03-30] MEDS: CALCITRIOL 0.25 MCG CAPSULE (FP) PO SCH (11:30)
[2020-03-30 12:19] LABS: ALBUMIN 3.5 g/dl (3.4-5.0); BILIRUBIN,TOTAL 0.8 mg/dL (0.2-1); BLOOD UREA NITROGEN 22.6 mg/dL (7-18); CALCIUM 8.5 mg/dL (8.5-10.1); CREATININE 3.5 mg/dL (0.55-1.3); TOT PROT 6.5 g/dl (6.4-8.2)
[2020-03-30] MEDS: CALCIUM GLUCONATE 10% - 1,000 MG/10 ML VIAL IVPB ONE ×2 (13:06→13:40)
--- NOTE | 2020-03-30 13:08 | PN ---
Physical Exam: SUBJECTIVE: Patient seen and examined. Stated that her abdominal discomfort improved. No bowel movements as of today. However, had 3 yesterday. Denies fevers, chills, shortness of breath, chest pain, abdominal pain. OBJECTIVE: Vital Signs Period Temp Pulse Resp BP Sys/Dan Pulse Ox Last 24 Hr 97.7 F-98.7 F 73-86 16-20 91-105/45-68 95-100 GENERAL: AAOx3, not in acute distress. HEENT: NCAT, EOMI. Noted to have cerumen in b/l ears. No discharge or erythema visualized. LUNGS: Clear to auscultation b/l. Equal breath sounds. No wheezes. HEART: Regular rate and rhythm, S1, S2 present. No murmurs. ABDOMEN: Obese. Bowel sounds present. Nontender to palpation. Non-distended. EXTREMITIES: Warm, well-perfused. No edema. SKIN: Warm, dry Laboratory Last Values WBC 6.5 K/mm3 (4.0-10.0) 03/30/20 06:40 RBC 3.86 M/mm3 (3.60-5.2) 03/30/20 06:40 Hgb 12.9 GM/dL (10.7-15.3) 03/30/20 06:40 Hct 39.6 % (32.4-45.2) 03/30/20 06:40 MCV 102.8 fl (80-96) H 03/30/20 06:40 MCH 33.4 pg (25.7-33.7) 03/30/20 06:40 MCHC 32.5 g/dl (32.0-36.0) 03/30/20 06:40 RDW 14.4 % (11.6-15.6) 03/30/20 06:40 Plt Count 108 K/MM3 (134-434) L 03/30/20 06:40 MPV 11.0 fl (7.5-11.1) 03/30/20 06:40 Absolute Neuts (auto) 4.1 K/mm3 (1.5-8.0) 03/30/20 06:40 Neutrophils % 63.1 % (42.8-82.8) 03/30/20 06:40 Lymphocytes % 24.0 % (8-40) D 03/30/20 06:40 Monocytes % 8.9 % (3.8-10.2) 03/30/20 06:40 Eosinophils % 2.9 % (0-4.5) 03/30/20 06:40 Basophils % 1.1 % (0-2.0) 03/30/20 06:40 Nucleated RBC % 0 % (0-0) 03/30/20 06:40 PT with INR 17.20 SEC (9.7-13.0) H 03/23/20 03:30 INR 1.45 (0.83-1.09) H 03/23/20 03:30 PTT (Actin FS) 33.7 SECONDS (25.2-36.5) 03/23/20 03:30 Sodium 137 mmol/L (136-145) 03/30/20 11:25 Potassium 4.0 mmol/L (3.5-5.1) 03/30/20 11:25 Chloride 99 mmol/L (98-107) 03/30/20 11:25 Carbon Dioxide 27 mmol/L (21-32) 03/30/20 11:25 Anion Gap 11 MMOL/L (8-16) 03/30/20 11:25 BUN 22.6 mg/dL (7-18) H 03/30/20 11:25 Creatinine 3.5 mg/dL (0.55-1.3) H 03/30/20 11:25 Est GFR (CKD-EPI)AfAm 12.72 03/30/20 11:25 Est GFR (CKD-EPI)NonAf 10.97 03/30/20 11:25 POC Glucometer 112 UNITS (80-120) 03/24/20 17:50 Random Glucose 126 mg/dL (74-106) H 03/30/20 11:25 Hemoglobin A1c % 6.0 % (4.2-6.3) 03/24/20 10:10 Calcium 8.5 mg/dL (8.5-10.1) 03/30/20 11:25 Phosphorus 2.6 mg/dL (2.5-4.9) 03/30/20 06:40 Magnesium 2.2 mg/dL (1.8-2.4) 03/30/20 06:40 Total Bilirubin 0.8 mg/dL (0.2-1) 03/30/20 11:25 AST 19 U/L (15-37) 03/30/20 11:25 ALT 23 U/L (13-61) 03/30/20 11:25 Alkaline Phosphatase 96 U/L (45-117) 03/30/20 11:25 Creatine Kinase 60 U/L (26-192) 03/23/20 03:30 Troponin I 0.07 ng/ml (0.00-0.05) H 03/29/20 06:44 B-Natriuretic Peptide 37302.4 pg/ml (5-450) H 03/23/20 03:30 Total Protein 6.5 g/dl (6.4-8.2) 03/30/20 11:25 Albumin 3.5 g/dl (3.4-5.0) 03/30/20 11:25 Vitamin B12 692 pg/ml (193-986) 03/23/20 03:30 Serum Folate > 100 ng/mL (3.1-17.5) H 03/23/20 03:30 TSH 3.49 uIU/ml (0.358-3.74) 03/24/20 06:38 Urine Color Yellow 03/23/20 13:55 Urine Appearance Clear 03/23/20 13:55 Urine pH 5.0 (5.0-8.0) 03/23/20 13:55 Ur Specific Treece 1.020 (1.010-1.035) 03/23/20 13:55 Urine Protein 1+ (NEGATIVE) H 03/23/20 13:55 Urine Glucose (UA) Negative (NEGATIVE) 03/23/20 13:55 Urine Ketones Negative (NEGATIVE) 03/23/20 13:55 Urine Blood Negative (NEGATIVE) 03/23/20 13:55 Urine Nitrite Negative (NEGATIVE) 03/23/20 13:55 Urine Bilirubin Negative (NEGATIVE) 03/23/20 13:55 Urine Urobilinogen 0.2 mg/dL (0.2-1.0) 03/23/20 13:55 Ur Leukocyte Esterase Negative (NEGATIVE) 03/23/20 13:55 Urine WBC (Auto) 0 /uL (0-25.8) 03/23/20 13:55 Urine RBC (Auto) 1 /uL (0-23.9) 03/23/20 13:55 U Pathogenic Cast Auto Negative /lpf (NEGATIVE) 03/23/20 13:55 U Epithel Cells (Auto) 5 /uL (0-25.1) 03/23/20 13:55 COVID-19 (FELIX) Not detected (Not Detected) 03/23/20 03:50 Hep A IgM Ab Confirm Negative (Negative) 03/24/20 10:10 Hepatitis A Ab Total Negative (Negative) 03/24/20 10:10 Hep Bs Antigen Negative (Negative) 03/24/20 10:10 Hep Bs Antibody Reactive (.) 03/24/20 10:10 Hep B Core Total Ab Negative (Negative) 03/24/20 10:10 Hep B Core IgM Ab Negative (Negative) 03/24/20 10:10 Hepatitis Be Antibody Negative (Negative) 03/24/20 10:10 Hepatitis Be Antigen Negative (Negative) 03/24/20 10:10 Hep C Ab Diagnostic <0.1 s/co ratio (0.0-0.9) 03/24/20 10:10 Blood Type A NEGATIVE 03/23/20 09:15 Antibody Screen Negative 03/23/20 09:15 Active Medications Acetaminophen (Tylenol -) 650 mg PO Q6H PRN PRN Reason: PAIN Last Admin: 03/28/20 09:54 Dose: 650 mg Documented by: Amoxicillin (Amoxicillin -) 500 mg PO BID [facility] Last Admin: 03/30/20 09:38 Dose: 500 mg Documented by: Apixaban (Eliquis -) 2.5 mg PO BID [facility] Last Admin: 03/30/20 09:37 Dose: 2.5 mg Documented by: Atorvastatin Calcium (Lipitor -) 40 mg PO HS [facility] Last Admin: 03/29/20 22:43 Dose: 40 mg Documented by: Calcitriol (Rocaltrol -) 0.25 mcg PO DAILY [facility] Last Admin: 03/30/20 11:30 Dose: 0.25 mcg Documented by: Docusate Sodium (Colace -) 100 mg PO DAILY [facility] Last Admin: 03/30/20 09:37 Dose: 100 mg Documented by: Sodium Chloride (Normal Saline -) 250 mls @ 3,000 mls/hr IV PRN PRN PRN Reason: Hypotension during Dialysis Stop: 03/29/20 18:15 Levothyroxine Sodium (Synthroid -) 25 mcg PO 0700 [facility] Last Admin: 03/30/20 06:23 Dose: 25 mcg Documented by: Metoprolol Succinate (Toprol Xl -) 100 mg PO DAILY [facility] Last Admin: 03/30/20 09:38 Dose: Not Given Documented by: Pantoprazole Sodium (Protonix -) 40 mg PO DAILY [facility] Last Admin: 03/30/20 09:37 Dose: 40 mg Documented by: Polyethylene Glycol (Miralax (For Daily Use) -) 17 gm PO BID [facility] Last Admin: 03/30/20 09:37 Dose: Not Given Documented by: Sacubitril/Valsartan (Entresto 24 Mg-26 Mg Tablet) 1 tab PO BID [facility] Last Admin: 03/30/20 09:38 Dose: Not Given Documented by: Senna/Docusate Sodium (Pericolace -) 1 tablet PO BID [facility] Last Admin: 03/30/20 09:37 Dose: 1 tablet Documented by: Sevelamer Carbonate (Renvela -) 800 mg PO TIDCM [facility] Last Admin: 03/30/20 11:30 Dose: 800 mg Documented by: Torsemide (Demadex -) 20 mg PO BIDLASIX [facility] Last Admin: 03/30/20 13:06 Dose: Not Given Documented by: CT abd/pelvis COMPARISON IMAGIN05/11/2014 FINDINGS: LUNG BASES:Atelectasis/infiltration present at the right base. Calcified granuloma seen. There is cardiomegaly. Moderate pericardiac effusion. Moderate right-sided pleural effusion. LIVER: Negative. GALLBLADDER: Negative. BILIARY DUCTS: Negative. PANCREAS: Negative. SPLEEN: Calcified granulomas are identified within the spleen. ADRENALS: Bulky adrenals. KIDNEYS: Atrophic left kidney with a hyperdense cyst within the lower pole measuring 1.9 cm and the likely cyst within the midportion of the kidney cortical measuring 2.2 cm. The right kidney reveals parapelvic cyst within the upper pole. A parenchymal cyst like lesion is identified in the upper pole measuring 2 cm. Hyperdense cystic-like lesion is noted in the midportion of the kidney measuring 1.2 cm. No hydronephrosis or nephrolithiasis. Further evaluation of the advised. AORTA: Calcified plaque. No aneurysm. LYMPH NODES: Negative. BOWEL: The stomach is empty. Oral contrast reaches the colon. There is no evidence to suggest appendicitis. Small bowel loops are normal caliber. No colonic obstruction seen in diverticulosis with no evidence to suggest diverticulitis. No free air/fluid is. Fat-containing paraumbilical hernia with no stranding. PELVIS: The uterus was identified. The bladder is empty. No pelvic sidewall adenopathy is seen. OTHER: Demineralization. Discogenic disease noted. Grade 1 anterolisthesis noted of L3-L4 and L4-5 which is degenerative in nature. There is sclerosis of the sacroiliac joints with some erosions noted on the left suggesting sacroiliitis. Preliminary dictation was generated by the on-call radiologist at the time of this procedure. IMPRESSION: Multiple cystlike lesions within the kidneys, ultrasound investigation is recommended to exclude a solid mass. There is no evidence of hydronephrosis. No evidence of bowel obstruction. Diverticulosis with no evidence to suggest acute diverticulitis. Cardiomegaly with pericardiac effusion as discussed above. Right-sided pleural effusion which appears moderate with atelectasis/infiltration at the right base. Granulomatous disease. ASSESSMENT/PLAN: 89 year old F with PMH ESRD on HD MWF, congenital atrophic kidney, CAD s/p PCI, CHF, Afib (on Eliquis) and DM presented to the ED with shortness of breath. She is currently admitted for CHF exacerbation secondary to fluid overload. CHF exacerbation 2/2 fluid overload and incomplete fluid removal with HD - Pt received HD 03/29. Shortness of breath improved. - c/w torsemide, entresto - Echo reviewed. Small pericardial effusion present (< 1cm). - Cardio consulted. Recommended: c/w toprol-XL, entresto as hemodynamics can tolerate. C/w lipitor, torsemide, eliquis. Abdominal discomfort likely due to IBS - CT abdomen/pelvis as above. No obstruction seen. - f/u with Dr. Finley outpatient. - c/w colace and miralax, senna/docusate Afib - c/w Eliquis and metoprolol DM - HbA1c 6.0% - Random glucose 131 Earwax - c/w debrox drops b/l ears - c/w amoxicillin - f/u with ENT as outpatient. CAD - c/w lipitor ESRD -HD on M/W/F - Renal consulted. - c/w Renvela, calcitriol - CT abd/pelvis showed renal cyst. To be f/u as outpatient. FEN -No standing fluids - Monitor and replete electrolytes - Renal diet Ppx - DVT: Eliquis - GI: PPI Dispo: Pending placement in rehab center. Visit type - Emergency Visit Emergency Visit: Yes ED Registration Date: 03/23/20 Care time: The patient presented to the Emergency Department on the above date and was hospitalized for further evaluation of their emergent condition. - New Patient This patient is new to me today: No - Critical Care Critical Care patient: No - Medication Review Med list reviewed for High Risk Meds patients 65 and older: Yes ATTENDING PHYSICIAN STATEMENT I saw and evaluated the patient. I reviewed the resident's note and discussed the case with the resident. I agree with the resident's findings and plan as documented. SUBJECTIVE: OBJECTIVE: ASSESSMENT AND PLAN:
[2020-03-30] MEDS ORDERED: SODIUM CHLORIDE 250 ML IV PRN (16:03)
--- NOTE | 2020-03-30 16:03 | PN ---
Progress Note, Physician Chief Complaint: Shortness of breath History of Present Illness: Seen and examined at the bedside offers no acute complaints has arm brusing from attempted IV placement denies any sob, cp, fever, chills, abd pain Ear pain improved - Current Medication List Current Medications: Active Medications Acetaminophen (Tylenol -) 650 mg PO Q6H PRN PRN Reason: PAIN Last Admin: 03/28/20 09:54 Dose: 650 mg Documented by: Amoxicillin (Amoxicillin -) 500 mg PO BID [facility] Last Admin: 03/30/20 09:38 Dose: 500 mg Documented by: Apixaban (Eliquis -) 2.5 mg PO BID [facility] Last Admin: 03/30/20 09:37 Dose: 2.5 mg Documented by: Atorvastatin Calcium (Lipitor -) 40 mg PO HS [facility] Last Admin: 03/29/20 22:43 Dose: 40 mg Documented by: Calcitriol (Rocaltrol -) 0.25 mcg PO DAILY [facility] Last Admin: 03/30/20 11:30 Dose: 0.25 mcg Documented by: Docusate Sodium (Colace -) 100 mg PO DAILY [facility] Last Admin: 03/30/20 09:37 Dose: 100 mg Documented by: Sodium Chloride (Normal Saline -) 250 mls @ 3,000 mls/hr IV PRN PRN PRN Reason: Hypotension during Dialysis Stop: 03/29/20 18:15 Levothyroxine Sodium (Synthroid -) 25 mcg PO 0700 [facility] Last Admin: 03/30/20 06:23 Dose: 25 mcg Documented by: Metoprolol Succinate (Toprol Xl -) 100 mg PO DAILY [facility] Last Admin: 03/30/20 09:38 Dose: Not Given Documented by: Pantoprazole Sodium (Protonix -) 40 mg PO DAILY [facility] Last Admin: 03/30/20 09:37 Dose: 40 mg Documented by: Polyethylene Glycol (Miralax (For Daily Use) -) 17 gm PO BID [facility] Last Admin: 03/30/20 09:37 Dose: Not Given Documented by: Sacubitril/Valsartan (Entresto 24 Mg-26 Mg Tablet) 1 tab PO BID [facility] Last Admin: 03/30/20 09:38 Dose: Not Given Documented by: Senna/Docusate Sodium (Pericolace -) 1 tablet PO BID [facility] Last Admin: 03/30/20 09:37 Dose: 1 tablet Documented by: Sevelamer Carbonate (Renvela -) 800 mg PO TIDCM [facility] Last Admin: 03/30/20 11:30 Dose: 800 mg Documented by: Torsemide (Demadex -) 20 mg PO BIDLASIX [facility] Last Admin: 03/30/20 13:06 Dose: Not Given Documented by: - Objective Vital Signs: Vital Signs Temperature 97.7 F 03/30/20 14:00 Pulse Rate 87 03/30/20 14:00 Respiratory Rate 03/30/20 14:00 Blood Pressure 102/61 03/30/20 14:00 O2 Sat by Pulse Oximetry (%) 95 03/30/20 09:02 Constitutional: Yes: No Distress, Calm HENT: Yes: Atraumatic Neck: Yes: Supple Cardiovascular: Yes: Regular Rate and Rhythm Respiratory: Yes: Regular, Diminished Gastrointestinal: Yes: Soft Extremities: No: Cyanosis Edema: No Neurological: Yes: Alert Labs: CBC, BMP 03/30/20 06:40 03/30/20 11:25 INR, PTT INR 1.45 (0.83-1.09) H 03/23/20 03:30 Assessment/Plan 89 year old woman with history of ESRD on HD (MWF) CHF with systolic dysfunction, CAD, Afib on eliquis, DM who presented from home with shortness of breath. 1. Shortness of breath with pleural effusions/CHF 2. ESRD on HD 3. Systolic HF 4. Abdominal pain 5. CAD 6. Atrial fibrillation on Eliquis 7. DM s/p dialysis yesterday, next planned dialysis is tomorrow. Volume status and electrolytes are within normal limits pain control w/o NSAID as needed On debrox and amoxicillin for ear pain Continue entresto, torsemide and metoprolol. Discharge planning as per primary team AM BMP showed Ca of 6, repeat was 8.5 so likely a lab error in am recording. No supplement needed. Miguel Ramirez DO
[2020-03-30] MEDS: ATORVASTATIN CA 40 MG TABLET (FP) PO SCH (21:46)
[2020-03-31] MEDS ORDERED: MELATONIN 5 MG TABLETS PO ONE (00:30)
[2020-03-31] MEDS: TORSEMIDE 20 MG TABLET (FP) PO SCH ×2 (06:02→13:36)
[2020-03-31] MEDS: LEVOTHYROXINE NA 25 MCG TABLET (FP) PO SCH (06:03)
--- NOTE | 2020-03-31 06:30 | PN ---
Progress Note (short form) - Note Progress Note: Chief complaint: Events noted, notes reviewed, resting in bed, denies any chest discomfort, reports dyspnea but clinically improved History of Present Illness: Seen and examined on telemetry. Events noted, notes reviewed, resting in bed, denies any chest discomfort, reports dyspnea but clinically improved Echocardiography revealed severe reduction in left ventricular systolic function with estimated LVEF between 30-35%, mildly reduced right ventricular systolic function, moderate bi-atrial dilatation, mild to moderate mitral valve regu rgitation, moderate tricuspid valve regurgitation with calculated RVSP of 29 mmHg, mild to moderate aortic valve regurgitation, small pericardial effusion Medical therapy currently includes: Current Medications Generic Name Dose Route Start Last Admin Trade Name Freq PRN Reason Stop Dose Admin Acetaminophen 650 mg 03/26/20 14:49 03/28/20 09:54 Tylenol - PO 650 mg Q6H PRN Administration PAIN Amoxicillin 500 mg 03/26/20 22:00 03/30/20 21:46 Amoxicillin - PO 500 mg BID [facility] Administration Apixaban 2.5 mg 03/23/20 10:30 03/30/20 21:47 Eliquis - PO 2.5 mg BID [facility] Administration Atorvastatin Calcium 40 mg 03/23/20 22:00 03/30/20 21:46 Lipitor - PO 40 mg HS [facility] Administration Calcitriol 0.25 mcg 03/30/20 11:30 03/30/20 11:30 Rocaltrol - PO 0.25 mcg DAILY [facility] Administration Docusate Sodium 100 mg 03/24/20 12:45 03/30/20 09:37 Colace - PO 100 mg DAILY [facility] Administration Sodium Chloride 250 mls @ 3,000 mls/hr 03/30/20 16:03 Normal Saline - IV 03/31/20 16:03 PRN PRN Hypotension during Dialysis Levothyroxine Sodium 25 mcg 03/23/20 10:30 03/31/20 06:03 Synthroid - PO 25 mcg 0700 [facility] Administration Metoprolol Succinate 100 mg 03/25/20 10:00 03/30/20 09:38 Toprol Xl - PO Not Given DAILY [facility] Pantoprazole Sodium 40 mg 03/23/20 16:30 03/30/20 09:37 Protonix - PO 40 mg DAILY [facility] Administration Polyethylene Glycol 17 gm 03/24/20 12:45 03/30/20 21:47 Miralax (For Daily Use) - PO Not Given BID [facility] Sacubitril/Valsartan 1 tab 03/24/20 22:00 03/30/20 21:48 Entresto 24 Mg-26 Mg Tablet PO 1 tab BID [facility] Administration Senna/Docusate Sodium 1 tablet 03/24/20 22:00 03/30/20 21:47 Pericolace - PO 1 tablet BID [facility] Administration Sevelamer Carbonate 800 mg 03/23/20 12:00 03/30/20 17:16 Renvela - PO 800 mg TIDCM [facility] Administration Torsemide 20 mg 03/23/20 14:00 03/31/20 06:02 Demadex - PO 20 mg BIDLASIX [facility] Administration Review of Systems - Review of Systems Constitutional: denies: Chills or Fever Cardiovascular: as noted above Gastrointestinal: denies: Nausea, Vomiting, Diarrhea, Constipation or Abdominal Pain Genitourinary: No symptoms reported Neurological: No symptoms reported Physical Examination: Vital Signs: Last Vital Signs Temp Pulse Resp BP Pulse Ox 97.4 F L 107 H 18 109/60 96 03/31/20 02:00 03/31/20 02:00 03/31/20 02:00 03/31/20 02:00 03/31/20 02:00 Intake & Output 03/28/20 03/29/20 03/30/20 03/31/20 23:59 23:59 23:59 23:59 Intake Total 420 1180 250 Output Total 37672 Balance 420 -44902 250 Weight 155 lb 6.4 oz Neck: Supple negative JVD no bruit appreciated Heart: S1 and S2 Regular Rate and Rhythm Lungs: Diminished Breath Sounds at the Bases Abdomen: Soft benign normoactive bowel sounds Extremities: Negative edema Lab Data: CBC, BMP 03/30/20 06:40 03/30/20 11:25 Hepatic Panel Total Bilirubin 0.8 mg/dL (0.2-1) 03/30/20 11:25 AST 19 U/L (15-37) 03/30/20 11:25 ALT 23 U/L (13-61) 03/30/20 11:25 Alkaline Phosphatase 96 U/L (45-117) 03/30/20 11:25 Albumin 3.5 g/dl (3.4-5.0) 03/30/20 11:25 INR, PTT INR 1.45 (0.83-1.09) H 03/23/20 03:30 ASSESSMENT: 1. Acute on chronic class II [place] [employer] classification left ventricular failure related to systolic/diastolic left ventricular dysfunction (dilated cardiomyopathy), clinically resolving 2. Coronary artery disease post percutaneous coronary intervention stenting with evidence of demand ischemic injury angina pectoris 3. Paroxysmal atrial fibrillation/paroxysmal atrial flutter currently on anticoagulation therapy with DOAC's/Eliquis, [id number] score of 6 4. Hypertensive cardiovascular disease 5. Diabetes mellitus 6. Hypercholesterolemia 7. Chronic kidney disease on HD 8. Hypothyroidism 9. Anemia PLAN: 1. Continue Toprol-XL therapy and dose titration as needed, hemodynamics tolerating 2. Continue Entresto therapy and dose titration as needed, hemodynamics tolerating 3. Continue Lipitor therapy 4. Continue Demadex therapy 5. Continue Eliquis therapy at the above noted dosage 6. HD as per renal service 7. As outlined in the prior notes and as per discussion with the patient and her family, plan to continue conservative medical management without any additional intervention Tari Ruiz M.D.
[2020-03-31 08:16] LABS: BLOOD UREA NITROGEN 32.2 mg/dL (7-18); CALCIUM 8.9 mg/dL (8.5-10.1); CREATININE 4.2 mg/dL (0.55-1.3); HEMATOCRIT 36.6 % (32.4-45.2); HEMOGLOBIN 11.9 GM/dL (10.7-15.3); MCH 33.6 pg (25.7-33.7); MCHC 32.6 g/dl (32.0-36.0); MEAN CELL VOLUME 103.2 fl (80-96); MEAN PLT VOLUME 11.6 fl (7.5-11.1); PLATELET COUNT 94 K/MM3 (134-434); POTASSIUM 3.8 mmol/L (3.5-5.1); RBC 3.54 M/mm3 (3.60-5.2); RDW 14.4 % (11.6-15.6); WHITE BLOOD COUNT 6.3 K/mm3 (4.0-10.0)
[2020-03-31] MEDS: SEVELAMER CARBONATE 800 MG TAB (FP) PO SCH ×3 (08:39→17:32)
[2020-03-31] MEDS: DOCUSATE SODIUM 100 MG CAPSULE (FP) PO SCH (09:14)
[2020-03-31] MEDS: SENNOSIDES/DOCUSATE COMBO (SENNA PLUS) TABLET (UD) PO SCH ×3 (09:14→21:37)
[2020-03-31] MEDS: APIXABAN 2.5 MG TABLET PO SCH ×2 (09:14→21:13)
[2020-03-31] MEDS: AMOXICILLIN 500 MG CAPSULE (FP) PO SCH ×2 (09:14→21:13)
[2020-03-31] MEDS: PANTOPRAZOLE 40 MG TABLET PO SCH (09:14)
[2020-03-31] MEDS: CALCITRIOL 0.25 MCG CAPSULE (FP) PO SCH (09:14)
[2020-03-31] MEDS: SACUBITRIL/VALSARTAN 24 MG-26 MG TABLET PO SCH ×2 (09:14→21:13)
[2020-03-31] MEDS: POLYETHYLENE GLYCOL 3350 119 GM BTL PO SCH ×2 (09:15→21:14)
--- NOTE | 2020-03-31 13:00 | PN ---
Physical Exam: SUBJECTIVE: Patient seen and examined. No acute events overnight. Pt admits to having some shortness of breath. Pt denies fevers, chills, chest pain, abdominal pain, numbness or tingling. OBJECTIVE: Vital Signs Period Temp Pulse Resp BP Sys/Dan Pulse Ox Last 24 Hr 97.4 F-98 F 83-107 18-20 96-112/53-61 95-96 GENERAL: AAOx3, not in acute distress. HEENT: NCAT, EOMI. Noted to have cerumen in b/l ears. No discharge or erythema visualized. LUNGS: Bibasilar cracklers present. HEART: Regular rate and rhythm, S1, S2 present. No murmurs. ABDOMEN: Soft. Bowel sounds present. Nontender to palpation. Non-distended. EXTREMITIES: Warm, well-perfused. No edema. SKIN: Warm, dry Laboratory Last Values WBC 6.3 K/mm3 (4.0-10.0) 03/31/20 06:10 RBC 3.54 M/mm3 (3.60-5.2) L 03/31/20 06:10 Hgb 11.9 GM/dL (10.7-15.3) 03/31/20 06:10 Hct 36.6 % (32.4-45.2) 03/31/20 06:10 MCV 103.2 fl (80-96) H 03/31/20 06:10 MCH 33.6 pg (25.7-33.7) 03/31/20 06:10 MCHC 32.6 g/dl (32.0-36.0) 03/31/20 06:10 RDW 14.4 % (11.6-15.6) 03/31/20 06:10 Plt Count 94 K/MM3 (134-434) L 03/31/20 06:10 MPV 11.6 fl (7.5-11.1) H 03/31/20 06:10 Absolute Neuts (auto) 4.1 K/mm3 (1.5-8.0) 03/30/20 06:40 Neutrophils % 63.1 % (42.8-82.8) 03/30/20 06:40 Lymphocytes % 24.0 % (8-40) D 03/30/20 06:40 Monocytes % 8.9 % (3.8-10.2) 03/30/20 06:40 Eosinophils % 2.9 % (0-4.5) 03/30/20 06:40 Basophils % 1.1 % (0-2.0) 03/30/20 06:40 Nucleated RBC % 0 % (0-0) 03/30/20 06:40 PT with INR 17.20 SEC (9.7-13.0) H 03/23/20 03:30 INR 1.45 (0.83-1.09) H 03/23/20 03:30 PTT (Actin FS) 33.7 SECONDS (25.2-36.5) 03/23/20 03:30 Sodium 136 mmol/L (136-145) 03/31/20 06:10 Potassium 3.8 mmol/L (3.5-5.1) 03/31/20 06:10 Chloride 99 mmol/L (98-107) 03/31/20 06:10 Carbon Dioxide 25 mmol/L (21-32) 03/31/20 06:10 Anion Gap 12 MMOL/L (8-16) 03/31/20 06:10 BUN 32.2 mg/dL (7-18) H 03/31/20 06:10 Creatinine 4.2 mg/dL (0.55-1.3) H 03/31/20 06:10 Est GFR (CKD-EPI)AfAm 10.20 03/31/20 06:10 Est GFR (CKD-EPI)NonAf 8.80 03/31/20 06:10 POC Glucometer 112 UNITS (80-120) 03/24/20 17:50 Random Glucose 112 mg/dL (74-106) H 03/31/20 06:10 Hemoglobin A1c % 6.0 % (4.2-6.3) 03/24/20 10:10 Calcium 8.9 mg/dL (8.5-10.1) 03/31/20 06:10 Phosphorus 2.6 mg/dL (2.5-4.9) 03/30/20 06:40 Magnesium 2.2 mg/dL (1.8-2.4) 03/30/20 06:40 Total Bilirubin 0.8 mg/dL (0.2-1) 03/30/20 11:25 AST 19 U/L (15-37) 03/30/20 11:25 ALT 23 U/L (13-61) 03/30/20 11:25 Alkaline Phosphatase 96 U/L (45-117) 03/30/20 11:25 Creatine Kinase 60 U/L (26-192) 03/23/20 03:30 Troponin I 0.07 ng/ml (0.00-0.05) H 03/29/20 06:44 B-Natriuretic Peptide 36984.4 pg/ml (5-450) H 03/23/20 03:30 Total Protein 6.5 g/dl (6.4-8.2) 03/30/20 11:25 Albumin 3.5 g/dl (3.4-5.0) 03/30/20 11:25 Vitamin B12 692 pg/ml (193-986) 03/23/20 03:30 Serum Folate > 100 ng/mL (3.1-17.5) H 03/23/20 03:30 TSH 3.49 uIU/ml (0.358-3.74) 03/24/20 06:38 Urine Color Yellow 03/23/20 13:55 Urine Appearance Clear 03/23/20 13:55 Urine pH 5.0 (5.0-8.0) 03/23/20 13:55 Ur Specific [place] 1.020 (1.010-1.035) 03/23/20 13:55 Urine Protein 1+ (NEGATIVE) H 03/23/20 13:55 Urine Glucose (UA) Negative (NEGATIVE) 03/23/20 13:55 Urine Ketones Negative (NEGATIVE) 03/23/20 13:55 Urine Blood Negative (NEGATIVE) 03/23/20 13:55 Urine Nitrite Negative (NEGATIVE) 03/23/20 13:55 Urine Bilirubin Negative (NEGATIVE) 03/23/20 13:55 Urine Urobilinogen 0.2 mg/dL (0.2-1.0) 03/23/20 13:55 Ur Leukocyte Esterase Negative (NEGATIVE) 03/23/20 13:55 Urine WBC (Auto) 0 /uL (0-25.8) 03/23/20 13:55 Urine RBC (Auto) 1 /uL (0-23.9) 03/23/20 13:55 U Pathogenic Cast Auto Negative /lpf (NEGATIVE) 03/23/20 13:55 U Epithel Cells (Auto) 5 /uL (0-25.1) 03/23/20 13:55 COVID-19 ([facility]IX) Not detected (Not Detected) 03/23/20 03:50 Hep A IgM Ab Confirm Negative (Negative) 03/24/20 10:10 Hepatitis A Ab Total Negative (Negative) 03/24/20 10:10 Hep Bs Antigen Negative (Negative) 03/24/20 10:10 Hep Bs Antibody Reactive (.) 03/24/20 10:10 Hep B Core Total Ab Negative (Negative) 03/24/20 10:10 Hep B Core IgM Ab Negative (Negative) 03/24/20 10:10 Hepatitis Be Antibody Negative (Negative) 03/24/20 10:10 Hepatitis Be Antigen Negative (Negative) 03/24/20 10:10 Hep C Ab Diagnostic <0.1 s/co ratio (0.0-0.9) 03/24/20 10:10 Blood Type A NEGATIVE 03/23/20 09:15 Antibody Screen Negative 03/23/20 09:15 Active Medications Acetaminophen (Tylenol -) 650 mg PO Q6H PRN PRN Reason: PAIN Last Admin: 03/28/20 09:54 Dose: 650 mg Documented by: Amoxicillin (Amoxicillin -) 500 mg PO BID [facility] Last Admin: 03/31/20 09:14 Dose: 500 mg Documented by: Apixaban (Eliquis -) 2.5 mg PO BID [facility] Last Admin: 03/31/20 09:14 Dose: 2.5 mg Documented by: Atorvastatin Calcium (Lipitor -) 40 mg PO HS [facility] Last Admin: 03/30/20 21:46 Dose: 40 mg Documented by: Calcitriol (Rocaltrol -) 0.25 mcg PO DAILY [facility] Last Admin: 03/31/20 09:14 Dose: 0.25 mcg Documented by: Docusate Sodium (Colace -) 100 mg PO DAILY [facility] Last Admin: 03/31/20 09:14 Dose: 100 mg Documented by: Sodium Chloride (Normal Saline -) 250 mls @ 3,000 mls/hr IV PRN PRN PRN Reason: Hypotension during Dialysis Stop: 03/31/20 16:03 Levothyroxine Sodium (Synthroid -) 25 mcg PO 0700 [facility] Last Admin: 03/31/20 06:03 Dose: 25 mcg Documented by: Metoprolol Succinate (Toprol Xl -) 100 mg PO DAILY [facility] Last Admin: 03/31/20 09:15 Dose: Not Given Documented by: Pantoprazole Sodium (Protonix -) 40 mg PO DAILY [facility] Last Admin: 03/31/20 09:14 Dose: 40 mg Documented by: Polyethylene Glycol (Miralax (For Daily Use) -) 17 gm PO BID [facility] Last Admin: 03/31/20 09:15 Dose: Not Given Documented by: Sacubitril/Valsartan (Entresto 24 Mg-26 Mg Tablet) 1 tab PO BID [facility] Last Admin: 03/31/20 09:14 Dose: Not Given Documented by: Senna/Docusate Sodium (Pericolace -) 1 tablet PO BID [facility] Last Admin: 03/31/20 09:14 Dose: 1 tablet Documented by: Sevelamer Carbonate (Renvela -) 800 mg PO TIDCM [facility] Last Admin: 03/31/20 08:39 Dose: 800 mg Documented by: Torsemide (Demadex -) 20 mg PO BIDLASIX [facility] Last Admin: 03/31/20 06:02 Dose: 20 mg Documented by: CT abd/pelvis COMPARISON IMAGIN05/11/2014 FINDINGS: LUNG BASES:Atelectasis/infiltration present at the right base. Calcified granuloma seen. There is cardiomegaly. Moderate pericardiac effusion. Moderate right-sided pleural effusion. LIVER: Negative. GALLBLADDER: Negative. BILIARY DUCTS: Negative. PANCREAS: Negative. SPLEEN: Calcified granulomas are identified within the spleen. ADRENALS: Bulky adrenals. KIDNEYS: Atrophic left kidney with a hyperdense cyst within the lower pole measuring 1.9 cm and the likely cyst within the midportion of the kidney cortical measuring 2.2 cm. The right kidney reveals parapelvic cyst within the upper pole. A parenchymal cyst like lesion is identified in the upper pole measuring 2 cm. Hyperdense cystic-like lesion is noted in the midportion of the kidney measuring 1.2 cm. No hydronephrosis or nephrolithiasis. Further mulugeta luation of the advised. AORTA: Calcified plaque. No aneurysm. LYMPH NODES: Negative. BOWEL: The stomach is empty. Oral contrast reaches the colon. There is no evidence to suggest appendicitis. Small bowel loops are normal caliber. No colonic obstruction seen in diverticulosis with no evidence to suggest diverticulitis. No free air/fluid is. Fat-containing paraumbilical hernia with no stranding. PELVIS: The uterus was identified. The bladder is empty. No pelvic sidewall adenopathy is seen. OTHER: Demineralization. Discogenic disease noted. Grade 1 anterolisthesis noted of L3-L4 and L4-5 which is degenerative in nature. There is sclerosis of the sacroiliac joints with some erosions noted on the left suggesting sacroiliitis. Preliminary dictation was generated by the on-call radiologist at the time of this procedure. IMPRESSION: Multiple cystlike lesions within the kidneys, ultrasound investigation is recommended to exclude a solid mass. There is no evidence of hydronephrosis. No evidence of bowel obstruction. Diverticulosis with no evidence to suggest acute diverticulitis. Cardiomegaly with pericardiac effusion as discussed above. Right-sided pleural effusion which appears moderate with atelectasis/infiltration at the right base. Granulomatous disease. ASSESSMENT/PLAN: 89 year old F with PMH ESRD on HD MWF, congenital atrophic kidney, CAD s/p PCI, CHF, Afib (on Eliquis) and DM presented to the ED with shortness of breath. She is currently admitted for CHF exacerbation secondary to fluid overload. CHF exacerbation 2/2 fluid overload and incomplete fluid removal with HD - Pt received HD 03/29 with improvement in shortness of breath. Will receive HD today. - Echo reviewed. Small pericardial effusion present (< 1cm). - Cardio consulted. Recommended: c/w toprol-XL, entresto as hemodynamics can tolerate. C/w lipitor, torsemide, eliquis. Abdominal discomfort likely due to IBS - CT abdomen/pelvis as above. No obstruction seen. - f/u with Dr. Finley outpatient. - c/w colace and miralax, senna/docusate Afib - c/w Eliquis and metoprolol DM - Random glucose 112 Earwax - c/w debrox drops b/l ears - c/w amoxicillin - f/u with ENT as outpatient. CAD - c/w lipitor ESRD - HD on M/W/F - Renal consulted. - c/w Renvela, calcitriol - CT abd/pelvis showed renal cyst. To be f/u as outpatient. - Monitor and replete electrolytes FEN - No standing fluids - Monitor and replete electrolytes - Renal diet Ppx - DVT: Eliquis - GI: PPI Dispo: Pending approval for long term facility placement. [facility] received pending reference #[id number] for authorization. Case reviewed by RALPH Peter with pending approval. Visit type - Emergency Visit Emergency Visit: Yes ED Registration Date: 03/23/20 Care time: The patient presented to the Emergency Department on the above date and was hospitalized for further evaluation of their emergent condition. - New Patient This patient is new to me today: No - Critical Care Critical Care patient: No - Medication Review Med list reviewed for High Risk Meds patients 65 and older: Yes ATTENDING PHYSICIAN STATEMENT I saw and evaluated the patient. I reviewed the resident's note and discussed the case with the resident. I agree with the resident's findings and plan as documented. SUBJECTIVE: OBJECTIVE: ASSESSMENT AND PLAN:
--- NOTE | 2020-03-31 18:37 | PN ---
Teaching Attending Note Name of Resident: Shanda Erickson ATTENDING PHYSICIAN STATEMENT I saw and evaluated the patient. I reviewed the resident's note and discussed the case with the resident. I agree with the resident's findings and plan as documented. SUBJECTIVE: s/p dialysis today, c/o feeling weak and tired. OBJECTIVE: Vital Signs Temperature 97.8 F 03/31/20 14:00 Pulse Rate 105 H 03/31/20 14:00 Respiratory Rate 18 03/31/20 13:13 Blood Pressure 140/71 03/31/20 14:00 O2 Sat by Pulse Oximetry (%) 95 03/31/20 10:00 PE: per resident's note CBCD WBC 6.3 K/mm3 (4.0-10.0) 03/31/20 06:10 RBC 3.54 M/mm3 (3.60-5.2) L 03/31/20 06:10 Hgb 11.9 GM/dL (10.7-15.3) 03/31/20 06:10 Hct 36.6 % (32.4-45.2) 03/31/20 06:10 MCV 103.2 fl (80-96) H 03/31/20 06:10 MCHC 32.6 g/dl (32.0-36.0) 03/31/20 06:10 RDW 14.4 % (11.6-15.6) 03/31/20 06:10 Plt Count 94 K/MM3 (134-434) L 03/31/20 06:10 MPV 11.6 fl (7.5-11.1) H 03/31/20 06:10 CMP Sodium 136 mmol/L (136-145) 03/31/20 06:10 Potassium 3.8 mmol/L (3.5-5.1) 03/31/20 06:10 Chloride 99 mmol/L (98-107) 03/31/20 06:10 Carbon Dioxide 25 mmol/L (21-32) 03/31/20 06:10 Anion Gap 12 MMOL/L (8-16) 03/31/20 06:10 BUN 32.2 mg/dL (7-18) H 03/31/20 06:10 Creatinine 4.2 mg/dL (0.55-1.3) H 03/31/20 06:10 Random Glucose 112 mg/dL (74-106) H 03/31/20 06:10 Calcium 8.9 mg/dL (8.5-10.1) 03/31/20 06:10 Total Bilirubin 0.8 mg/dL (0.2-1) 03/30/20 11:25 AST 19 U/L (15-37) 03/30/20 11:25 ALT 23 U/L (13-61) 03/30/20 11:25 Alkaline Phosphatase 96 U/L (45-117) 03/30/20 11:25 Total Protein 6.5 g/dl (6.4-8.2) 03/30/20 11:25 Albumin 3.5 g/dl (3.4-5.0) 03/30/20 11:25 CARDIAC ENZYMES Creatine Kinase 60 U/L (26-192) 03/23/20 03:30 Troponin I 0.07 ng/ml (0.00-0.05) H 03/29/20 06:44 Current Medications Generic Name Dose Route Start Last Admin Trade Name Shadiq PRN Reason Stop Dose Admin Acetaminophen 650 mg 03/26/20 14:49 03/28/20 09:54 Tylenol - PO 650 mg Q6H PRN Administration PAIN Amoxicillin 500 mg 03/26/20 22:00 03/31/20 09:14 Amoxicillin - PO 500 mg BID ELHAM Administration Apixaban 2.5 mg 03/23/20 10:30 03/31/20 09:14 Eliquis - PO 2.5 mg BID ELHAM Administration Atorvastatin Calcium 40 mg 03/23/20 22:00 03/30/20 21:46 Lipitor - PO 40 mg HS ELHAM Administration Calcitriol 0.25 mcg 03/30/20 11:30 03/31/20 09:14 Rocaltrol - PO 0.25 mcg DAILY ELHAM Administration Docusate Sodium 100 mg 03/24/20 12:45 03/31/20 09:14 Colace - PO 100 mg DAILY ELHAM Administration Sodium Chloride 250 mls @ 3,000 mls/hr 03/30/20 16:03 Normal Saline - IV 03/31/20 16:03 PRN PRN Hypotension during Dialysis Levothyroxine Sodium 25 mcg 03/23/20 10:30 03/31/20 06:03 Synthroid - PO 25 mcg 0700 ELHAM Administration Metoprolol Succinate 100 mg 03/25/20 10:00 03/31/20 09:15 Toprol Xl - PO Not Given DAILY ELHAM Pantoprazole Sodium 40 mg 03/23/20 16:30 03/31/20 09:14 Protonix - PO 40 mg DAILY [facility]AM Administration Polyethylene Glycol 17 gm 03/24/20 12:45 03/31/20 09:15 Miralax (For Daily Use) - PO Not Given BID ELHAM Sacubitril/Valsartan 1 tab 03/24/20 22:00 03/31/20 09:14 Entresto 24 Mg-26 Mg Tablet PO Not Given BID ELHAM Senna/Docusate Sodium 1 tablet 03/24/20 22:00 03/31/20 09:14 Pericolace - PO 1 tablet BID ELHAM Administration Sevelamer Carbonate 800 mg 03/23/20 12:00 03/31/20 17:32 Renvela - PO 800 mg TIDCM [facility]HAM Administration Torsemide 20 mg 03/23/20 14:00 03/31/20 13:36 Demadex - PO Not Given BIDLASIX [facility] Home Medications Medication Instructions Recorded Atorvastatin Ca [Lipitor] 40 mg PO HS 03/19/14 Levothyroxine [Synthroid -] 25 mcg PO DAILY 02/13/18 Apixaban [Eliquis] 2.5 mg PO BID #60 tablet 10/02/18 Sevelamer HCl 800 mg PO TID 08/01/19 Torsemide 20 mg PO BID 03/20/20 Docusate Sodium [Colace -] 100 mg PO DAILY 7 Days #7 capsule 03/25/20 Metoprolol Succinate [Toprol XL -] 100 mg PO DAILY 30 Days #30 03/25/20 tab.sr.24h Sacubitril/Valsartan [Entresto 24 1 tab PO BID 30 Days #60 tablet 03/25/20 mg-26 mg Tablet] Amoxicillin - [Amoxicillin 500mg 500 mg PO Q12H #14 capsule 03/26/20 Capsule -] Carbamide Peroxide 6.5% [Debrox -] 5 drop BID #1 bottle 03/26/20 Microbiology 03/23/20 13:55 Urine - Urine Clean Catch Urine Culture - Final Normal Urogenital Mallory ECHO: on 03/29/2020; Left ventricle is normal, Left ventricular systolic function is severely reduced, severe global hypokinesisi of the left ventricle. EJF 30- 35%, right ventricular systolic function is midly reduced. Left atrium is moderately dialated, moderate TR, Moderate As, moderate AR, small pericardial effusion <1cm. ASSESSMENT AND PLAN: This patient is an 89yof with Pmhx of congenital atrophic kidney, ESRD on HD M/W/F , dilated CM , HFrEF(LVEF 15%), CAD s/p PCI, HLP, , AR, AFIB on Eliquis, NIDDM, Hx of right partial mastectomy who presented with SOB and she was found to have acute on chronic systolic heart failure. # Acute on chronic systolic CHF. resolved ; pericardial effusion on CT scan . Echo from 12/23 with no effusion , will get Echo . d/w Dr. Brandon cont demadex, entersto, toprol, Ac, #ESRD on HD, renal cysts on CT need to be followed as out pt for further i nvestigations, will refer to renal as out pt . pt made aware #T2DM with A1c of 6 # HTN controlled #Abdominal discomfort: improved, On CT: no acute pathology, f/u with GI as out pt (apt with Dr. elizalde on 04/13 ) #Constipation continue pericolace and miralax #L otitis media , cerumin plug, on Amoxicillin and debrox ,f/u with ENT as out pt #R lung base atelectasis/ possible calcified granumomatous disease to fe followed as out pt . refer to pulm. pt made aware DVT Px: [employer] did not authorize for rehab placement . As per my resident's discussion with the daughter in law, she will try to arrange for rehab.
[2020-03-31 19:58] VITALS: BMI 27.6
--- NOTE | 2020-03-31 20:00 | PN ---
Progress Note, Physician Chief Complaint: Shortness of breath History of Present Illness: Seen and examined at the bedside s/p dialysis earlier today a total of 2L UF was removed pt complains of weakness and fatigue denies any sob, cp, fever, chills - Current Medication List Current Medications: Active Medications Acetaminophen (Tylenol -) 650 mg PO Q6H PRN PRN Reason: PAIN Last Admin: 03/28/20 09:54 Dose: 650 mg Documented by: Amoxicillin (Amoxicillin -) 500 mg PO BID [facility] Last Admin: 03/31/20 09:14 Dose: 500 mg Documented by: Apixaban (Eliquis -) 2.5 mg PO BID [facility] Last Admin: 03/31/20 09:14 Dose: 2.5 mg Documented by: Atorvastatin Calcium (Lipitor -) 40 mg PO HS [facility] Last Admin: 03/30/20 21:46 Dose: 40 mg Documented by: Calcitriol (Rocaltrol -) 0.25 mcg PO DAILY [facility] Last Admin: 03/31/20 09:14 Dose: 0.25 mcg Documented by: Docusate Sodium (Colace -) 100 mg PO DAILY [facility] Last Admin: 03/31/20 09:14 Dose: 100 mg Documented by: Sodium Chloride (Normal Saline -) 250 mls @ 3,000 mls/hr IV PRN PRN PRN Reason: Hypotension during Dialysis Stop: 03/31/20 16:03 Levothyroxine Sodium (Synthroid -) 25 mcg PO 0700 [facility] Last Admin: 03/31/20 06:03 Dose: 25 mcg Documented by: Metoprolol Succinate (Toprol Xl -) 100 mg PO DAILY [facility] Last Admin: 03/31/20 09:15 Dose: Not Given Documented by: Pantoprazole Sodium (Protonix -) 40 mg PO DAILY [facility] Last Admin: 03/31/20 09:14 Dose: 40 mg Documented by: Polyethylene Glycol (Miralax (For Daily Use) -) 17 gm PO BID [facility] Last Admin: 03/31/20 09:15 Dose: Not Given Documented by: Sacubitril/Valsartan (Entresto 24 Mg-26 Mg Tablet) 1 tab PO BID [facility] Last Admin: 03/31/20 09:14 Dose: Not Given Documented by: Senna/Docusate Sodium (Pericolace -) 1 tablet PO BID [facility] Last Admin: 03/31/20 09:14 Dose: 1 tablet Documented by: Sevelamer Carbonate (Renvela -) 800 mg PO TIDCM [facility] Last Admin: 03/31/20 17:32 Dose: 800 mg Documented by: Torsemide (Demadex -) 20 mg PO BIDLASIX [facility] Last Admin: 03/31/20 13:36 Dose: Not Given Documented by: - Objective Vital Signs: Vital Signs Temperature 98.1 F 03/31/20 18:00 Pulse Rate 104 H 03/31/20 18:00 Respiratory Rate 03/31/20 18:00 Blood Pressure 98/43 L 03/31/20 18:00 O2 Sat by Pulse Oximetry (%) 97 03/31/20 19:46 Constitutional: Yes: No Distress, Calm Neck: Yes: Supple Cardiovascular: Yes: Regular Rate and Rhythm Respiratory: Yes: Regular Gastrointestinal: Yes: Soft Edema: No Neurological: Yes: Alert Labs: CBC, BMP 03/31/20 06:10 03/31/20 06:10 INR, PTT INR 1.45 (0.83-1.09) H 03/23/20 03:30 Assessment/Plan 89 year old woman with history of ESRD on HD (MWF) CHF with systolic dysfunction, CAD, Afib on eliquis, DM who presented from home with shortness of breath. 1. Shortness of breath with pleural effusions/CHF 2. ESRD on HD 3. Systolic HF 4. Abdominal pain 5. CAD 6. Atrial fibrillation on Eliquis 7. DM Tolerated dialysis well this AM with 2L UF Fatigue may be due to dialysis + volume removal Volume status and electrolytes are within normal limits pain control w/o NSAID as needed Continue entresto, torsemide and metoprolol. Discharge planning as per primary team next planned dialysis is Sunday Miguel Ramirez DO
[2020-03-31] MEDS: ATORVASTATIN CA 40 MG TABLET (FP) PO SCH (21:13)
[2020-03-31] MEDS ORDERED: PT OWN MED DRAWER 7, Y5N ONE (21:32)
[2020-03-31] MEDS ORDERED: MELATONIN 5 MG TABLETS PO PRN (23:40)
[2020-04-01] MEDS: LEVOTHYROXINE NA 25 MCG TABLET (FP) PO SCH (06:21)
[2020-04-01] MEDS: TORSEMIDE 20 MG TABLET (FP) PO SCH ×2 (06:21→14:30)
[2020-04-01] MEDS: PANTOPRAZOLE 40 MG TABLET PO SCH (09:28)
[2020-04-01] MEDS: AMOXICILLIN 500 MG CAPSULE (FP) PO SCH ×2 (09:28→22:37)
[2020-04-01] MEDS: SEVELAMER CARBONATE 800 MG TAB (FP) PO SCH ×3 (09:28→17:55)
[2020-04-01] MEDS: DOCUSATE SODIUM 100 MG CAPSULE (FP) PO SCH (09:28)
[2020-04-01] MEDS: POLYETHYLENE GLYCOL 3350 119 GM BTL PO SCH ×2 (09:29→22:39)
[2020-04-01] MEDS: SACUBITRIL/VALSARTAN 24 MG-26 MG TABLET PO SCH ×2 (09:29→22:38)
[2020-04-01] MEDS: SENNOSIDES/DOCUSATE COMBO (SENNA PLUS) TABLET (UD) PO SCH ×2 (09:29→22:39)
[2020-04-01] MEDS: CALCITRIOL 0.25 MCG CAPSULE (FP) PO SCH (09:29)
[2020-04-01] MEDS: APIXABAN 2.5 MG TABLET PO SCH ×2 (09:29→22:37)
--- NOTE | 2020-04-01 12:35 | PN ---
Progress Note, Physician Chief Complaint: Shortness of breath History of Present Illness: Seen and examined at the bedside awake and alert complains of nasal congestion no fever, chills no sob, cp, abdominal pain, N/V/D s/p dialysis yesterday - Current Medication List Current Medications: Active Medications Acetaminophen (Tylenol -) 650 mg PO Q6H PRN PRN Reason: PAIN Last Admin: 03/28/20 09:54 Dose: 650 mg Documented by: Amoxicillin (Amoxicillin -) 500 mg PO BID [facility] Last Admin: 04/01/20 09:28 Dose: 500 mg Documented by: Apixaban (Eliquis -) 2.5 mg PO BID [facility] Last Admin: 04/01/20 09:29 Dose: 2.5 mg Documented by: Atorvastatin Calcium (Lipitor -) 40 mg PO HS [facility] Last Admin: 03/31/20 21:13 Dose: 40 mg Documented by: Calcitriol (Rocaltrol -) 0.25 mcg PO DAILY [facility] Last Admin: 04/01/20 09:29 Dose: 0.25 mcg Documented by: Docusate Sodium (Colace -) 100 mg PO DAILY [facility] Last Admin: 04/01/20 09:28 Dose: 100 mg Documented by: Sodium Chloride (Normal Saline -) 250 mls @ 3,000 mls/hr IV PRN PRN PRN Reason: Hypotension during Dialysis Stop: 03/31/20 16:03 Levothyroxine Sodium (Synthroid -) 25 mcg PO 0700 [facility] Last Admin: 04/01/20 06:21 Dose: 25 mcg Documented by: Melatonin (Melatonin) 5 mg PO HS PRN PRN Reason: INSOMNIA Last Admin: 04/01/20 00:00 Dose: 5 mg Documented by: Metoprolol Succinate (Toprol Xl -) 100 mg PO DAILY [facility] Last Admin: 04/01/20 09:29 Dose: Not Given Documented by: Pantoprazole Sodium (Protonix -) 40 mg PO DAILY [facility] Last Admin: 04/01/20 09:28 Dose: 40 mg Documented by: Polyethylene Glycol (Miralax (For Daily Use) -) 17 gm PO BID [facility] Last Admin: 04/01/20 09:29 Dose: Not Given Documented by: Sacubitril/Valsartan (Entresto 24 Mg-26 Mg Tablet) 1 tab PO BID [facility] Last Admin: 04/01/20 09:29 Dose: Not Given Documented by: Senna/Docusate Sodium (Pericolace -) 1 tablet PO BID [facility] Last Admin: 04/01/20 09:29 Dose: 1 tablet Documented by: Sevelamer Carbonate (Renvela -) 800 mg PO TIDCM [facility] Last Admin: 04/01/20 09:28 Dose: 800 mg Documented by: Torsemide (Demadex -) 20 mg PO BIDLASIX [facility] Last Admin: 04/01/20 06:21 Dose: 20 mg Documented by: - Objective Vital Signs: Vital Signs Temperature 97.8 F 04/01/20 10:00 Pulse Rate 98 H 04/01/20 10:00 Respiratory Rate 18 04/01/20 10:00 Blood Pressure 92/51 L 04/01/20 10:00 O2 Sat by Pulse Oximetry (%) 96 04/01/20 10:00 Constitutional: Yes: No Distress, Calm HENT: Yes: Atraumatic Neck: Yes: Supple Cardiovascular: Yes: Regular Rate and Rhythm Respiratory: Yes: Regular Gastrointestinal: Yes: Soft Extremities: No: Cyanosis Edema: No Neurological: Yes: Alert Labs: CBC, BMP 03/31/20 06:10 04/01/20 09:30 INR, PTT INR 1.45 (0.83-1.09) H 03/23/20 03:30 Assessment/Plan 89 year old woman with history of ESRD on HD (MWF) CHF with systolic dysfunction, CAD, Afib on eliquis, DM who presented from home with shortness of breath. 1. Shortness of breath with pleural effusions/CHF 2. ESRD on HD 3. Systolic HF 4. Abdominal pain 5. CAD 6. Atrial fibrillation on Eliquis 7. DM There is no acute indication for dialysis today next planned dialysis is tomorrow Volume status is acceptable pain control w/o NSAID as needed Continue entresto, torsemide and metoprolol. Discharge planning as per primary team awaiting authorization for SNF Miguel Ramirez DO
--- NOTE | 2020-04-01 13:10 | PN ---
Progress Note, Physician Chief Complaint: Events noted Complains of possible sinus discomfort History of Present Illness: Patient was seen and examined. Awake and alert. Chart was reviewed Denies chest pain, SOB or palpitations Echocardiography reviewed LVEF 30-35%, global hypokinesia, moderate LAD, moderate RAD, mild to moderate MR, mild to moderate AR, moderate TR, small pericardial effusion and presence of pleural effusion - Current Medication List Current Medications: Active Medications Acetaminophen (Tylenol -) 650 mg PO Q6H PRN PRN Reason: PAIN Last Admin: 03/28/20 09:54 Dose: 650 mg Documented by: Amoxicillin (Amoxicillin -) 500 mg PO BID [facility] Last Admin: 04/01/20 09:28 Dose: 500 mg Documented by: Apixaban (Eliquis -) 2.5 mg PO BID [facility] Last Admin: 04/01/20 09:29 Dose: 2.5 mg Documented by: Atorvastatin Calcium (Lipitor -) 40 mg PO HS [facility] Last Admin: 03/31/20 21:13 Dose: 40 mg Documented by: Calcitriol (Rocaltrol -) 0.25 mcg PO DAILY [facility] Last Admin: 04/01/20 09:29 Dose: 0.25 mcg Documented by: Docusate Sodium (Colace -) 100 mg PO DAILY [facility] Last Admin: 04/01/20 09:28 Dose: 100 mg Documented by: Sodium Chloride (Normal Saline -) 250 mls @ 3,000 mls/hr IV PRN PRN PRN Reason: Hypotension during Dialysis Stop: 03/31/20 16:03 Sodium Chloride (Normal Saline -) 250 mls @ 3,000 mls/hr IV PRN PRN PRN Reason: Hypotension during Dialysis Stop: 04/02/20 12:35 Levothyroxine Sodium (Synthroid -) 25 mcg PO 0700 [facility] Last Admin: 04/01/20 06:21 Dose: 25 mcg Documented by: Melatonin (Melatonin) 5 mg PO HS PRN PRN Reason: INSOMNIA Last Admin: 04/01/20 00:00 Dose: 5 mg Documented by: Metoprolol Succinate (Toprol Xl -) 100 mg PO DAILY [facility] Last Admin: 04/01/20 09:29 Dose: Not Given Documented by: Pantoprazole Sodium (Protonix -) 40 mg PO DAILY [facility] Last Admin: 04/01/20 09:28 Dose: 40 mg Documented by: Polyethylene Glycol (Miralax (For Daily Use) -) 17 gm PO BID [facility] Last Admin: 04/01/20 09:29 Dose: Not Given Documented by: Sacubitril/Valsartan (Entresto 24 Mg-26 Mg Tablet) 1 tab PO BID [facility] Last Admin: 04/01/20 09:29 Dose: Not Given Documented by: Senna/Docusate Sodium (Pericolace -) 1 tablet PO BID [facility] Last Admin: 04/01/20 09:29 Dose: 1 tablet Documented by: Sevelamer Carbonate (Renvela -) 800 mg PO TIDCM [facility] Last Admin: 04/01/20 09:28 Dose: 800 mg Documented by: Torsemide (Demadex -) 20 mg PO BIDLASIX [facility] Last Admin: 04/01/20 06:21 Dose: 20 mg Documented by: - Objective Vital Signs: Vital Signs Temperature 97.8 F 04/01/20 10:00 Pulse Rate 98 H 04/01/20 10:00 Respiratory Rate 18 04/01/20 10:00 Blood Pressure 92/51 L 04/01/20 10:00 O2 Sat by Pulse Oximetry (%) 96 04/01/20 10:00 Neck: Yes: Supple Cardiovascular: Yes: Regular Rate and Rhythm, S1, S2 Respiratory: Yes: Diminished Gastrointestinal: Yes: Normal Bowel Sounds, Soft. No: Tenderness Edema: No Additional Findings/Remarks: - Review of Systems Constitutional: denies: Chills, Fever Cardiovascular: reports: Shortness of Breath. denies: Chest Pain, Palpitations Respiratory: reports: SOB. denies: Cough, Hemoptysis, Orthopnea, PND, Wheezing Gastrointestinal: reports: Abdominal Pain. denies: Constipation, Diarrhea, Melena, Nausea, Rectal Bleeding, Vomiting Neurological: denies: Dizziness, Headache, Seizure, Syncope Labs: CBC, BMP 03/31/20 06:10 04/01/20 09:30 Problem List - Problems (1) ESRD (end stage renal disease) on dialysis Code(s): N18.6 - END STAGE RENAL DISEASE; Z99.2 - DEPENDENCE ON RENAL DIALYSIS (2) Pleural effusion Code(s): J90 - PLEURAL EFFUSION, NOT ELSEWHERE CLASSIFIED (3) Shortness of breath Code(s): R06.02 - SHORTNESS OF BREATH (4) Acute on chronic diastolic heart failure Code(s): I50.33 - ACUTE ON CHRONIC DIASTOLIC (CONGESTIVE) HEART FAILURE (5) Acute on chronic systolic and diastolic heart failure, NYHA class 3 Code(s): I50.43 - ACUTE ON CHRONIC COMBINED SYSTOLIC AND DIASTOLIC HRT FAIL (6) [id number] kidney injury Code(s): N17.9 - ACUTE KIDNEY FAILURE, UNSPECIFIED; N18.9 - CHRONIC KIDNEY DISEASE, UNSPECIFIED Qualifiers: Acute renal failure type: unspecified (7) Anemia Code(s): D64.9 - ANEMIA, UNSPECIFIED Qualifiers: Anemia type: due to chronic kidney disease Chronic kidney disease stage: on chronic dialysis Qualified Code(s): N18.6 - End stage renal disease; D63.1 - Anemia in chronic kidney disease; Z99.2 - Dependence on renal dialysis (8) Aortic stenosis, moderate Code(s): I35.0 - NONRHEUMATIC AORTIC (VALVE) STENOSIS (9) Demand ischemia Code(s): I24.8 - OTHER FORMS OF ACUTE ISCHEMIC HEART DISEASE (10) Diabetes mellitus Code(s): E11.9 - TYPE 2 DIABETES MELLITUS WITHOUT COMPLICATIONS Qualifiers: Diabetes mellitus type: type 2 Diabetes mellitus ocean transportation intermediary insulin use: without mcfp use Diabetes mellitus complication status: with kidney complications Diabetes mellitus complication detail: with chronic kidney disease Chronic kidney disease stage: stage 4 (severe) Qualified Code(s): E11.22 - Type 2 diabetes mellitus with diabetic chronic kidney disease; N18.4 - Chronic kidney disease, stage 4 (severe) (11) Diverticulitis Code(s): K57.92 - DVTRCLI OF INTEST, PART UNSP, W/O PERF OR ABSCESS W/O BLEED (12) HLD (hyperlipidemia) Code(s): E78.5 - HYPERLIPIDEMIA, UNSPECIFIED Qualifiers: Hyperlipidemia type: pure hypercholesterolemia Qualified Code(s): E78.00 - Pure hypercholesterolemia, unspecified; E78.0 - Pure hypercholesterolemia (13) HTN (hypertension) Code(s): I10 - ESSENTIAL (PRIMARY) HYPERTENSION Qualifiers: Hypertension type: renovascular hypertension Qualified Code(s): I15.0 - Renovascular hypertension (14) Paroxysmal atrial fibrillation with rapid ventricular response Code(s): I48.0 - PAROXYSMAL ATRIAL FIBRILLATION (15) Pericardial effusion Code(s): I31.3 - PERICARDIAL EFFUSION (NONINFLAMMATORY) Assessment/Plan 1. Shortness of breath with pleural effusions due to acute on chronic systolic heart failure, NYHA class II 2. Dilated cardiomyopathy 3. Abdominal discomfort ?diverticular disease 4. HTN 5. Hypercholesterolemia 6. CAD s/p PCI/stent, angina pectoris 7. Aortic valve disease - Aortic valve sclerosis/AR 8. ESRD on HD 9. NIDDM 10. Hypothyroidism 11. AF on DOAC/Eliquis 12. Demand ischemia PLAN: 1. Continue Eliquis 2.5 mg BID 2. Entresto 24/26 mg BID and Toprol XL 100 qd 3. Torsemide 20 mg BID 4. Atorvastatin 40 mg QHS 5. Conservative cardiac management without further intervention 6. Echocardiography was reviewed 7. HD and UF per Renal Cabrera Brandon MD
--- NOTE | 2020-04-01 16:37 | PN ---
Teaching Attending Note Name of Resident: Shanda Erickson ATTENDING PHYSICIAN STATEMENT I saw and evaluated the patient. I reviewed the resident's note and discussed the case with the resident. I agree with the resident's findings and plan as documented. SUBJECTIVE: Patient is feeling weak. OBJECTIVE: Vital Signs Temperature 97.8 F 04/01/20 14:00 Pulse Rate 94 H 04/01/20 14:00 Respiratory Rate 18 04/01/20 10:00 Blood Pressure 117/57 L 04/01/20 14:00 O2 Sat by Pulse Oximetry (%) 96 04/01/20 10:00 PE: per resident's note CBCD WBC 6.3 K/mm3 (4.0-10.0) 03/31/20 06:10 RBC 3.54 M/mm3 (3.60-5.2) L 03/31/20 06:10 Hgb 11.9 GM/dL (10.7-15.3) 03/31/20 06:10 Hct 36.6 % (32.4-45.2) 03/31/20 06:10 MCV 103.2 fl (80-96) H 03/31/20 06:10 MCHC 32.6 g/dl (32.0-36.0) 03/31/20 06:10 RDW 14.4 % (11.6-15.6) 03/31/20 06:10 Plt Count 94 K/MM3 (134-434) L 03/31/20 06:10 MPV 11.6 fl (7.5-11.1) H 03/31/20 06:10 CMP Sodium Cancelled 04/01/20 09:30 Potassium Cancelled 04/01/20 09:30 Chloride Cancelled 04/01/20 09:30 Carbon Dioxide Cancelled 04/01/20 09:30 Anion Gap Cancelled 04/01/20 09:30 BUN Cancelled 04/01/20 09:30 Creatinine Cancelled 04/01/20 09:30 Random Glucose Cancelled 04/01/20 09:30 Calcium Cancelled 04/01/20 09:30 Total Bilirubin 0.8 mg/dL (0.2-1) 03/30/20 11:25 AST 19 U/L (15-37) 03/30/20 11:25 ALT 23 U/L (13-61) 03/30/20 11:25 Alkaline Phosphatase 96 U/L (45-117) 03/30/20 11:25 Total Protein 6.5 g/dl (6.4-8.2) 03/30/20 11:25 Albumin 3.5 g/dl (3.4-5.0) 03/30/20 11:25 CARDIAC ENZYMES Creatine Kinase 60 U/L (26-192) 03/23/20 03:30 Troponin I 0.07 ng/ml (0.00-0.05) H 03/29/20 06:44 Current Medications Generic Name Dose Route Start Last Admin Trade Name Freq PRN Reason Stop Dose Admin Acetaminophen 650 mg 03/26/20 14:49 03/28/20 09:54 Tylenol - PO 650 mg Q6H PRN Administration PAIN Amoxicillin 500 mg 03/26/20 22:00 04/01/20 09:28 Amoxicillin - PO 500 mg BID ELHAM Administration Apixaban 2.5 mg 03/23/20 10:30 04/01/20 09:29 Eliquis - PO 2.5 mg BID ELHAM Administration Atorvastatin Calcium 40 mg 03/23/20 22:00 03/31/20 21:13 Lipitor - PO 40 mg HS ELHAM Administration Calcitriol 0.25 mcg 03/30/20 11:30 04/01/20 09:29 Rocaltrol - PO 0.25 mcg DAILY ELHAM Administration Docusate Sodium 100 mg 03/24/20 12:45 04/01/20 09:28 Colace - PO 100 mg DAILY ELHAM Administration Sodium Chloride 250 mls @ 3,000 mls/hr 04/01/20 12:34 Normal Saline - IV 04/02/20 12:35 PRN PRN Hypotension during Dialysis Levothyroxine Sodium 25 mcg 03/23/20 10:30 04/01/20 06:21 Synthroid - PO 25 mcg 0700 [facility]HAM Administration Melatonin 5 mg 03/31/20 23:40 04/01/20 00:00 Melatonin PO 5 mg HS PRN Administration INSOMNIA Metoprolol Succinate 100 mg 03/25/20 10:00 04/01/20 09:29 Toprol Xl - PO Not Given DAILY ELHAM Pantoprazole Sodium 40 mg 03/23/20 16:30 04/01/20 09:28 Protonix - PO 40 mg DAILY ELHAM Administration Polyethylene Glycol 17 gm 03/24/20 12:45 04/01/20 09:29 Miralax (For Daily Use) - PO Not Given BID ELHAM Sacubitril/Valsartan 1 tab 03/24/20 22:00 04/01/20 09:29 Entresto 24 Mg-26 Mg Tablet PO Not Given BID ELHAM Senna/Docusate Sodium 1 tablet 03/24/20 22:00 04/01/20 09:29 Pericolace - PO 1 tablet BID ELHAM Administration Sevelamer Carbonate 800 mg 03/23/20 12:00 04/01/20 12:30 Renvela - PO 800 mg TIDCM ELHAM Administration Torsemide 20 mg 03/23/20 14:00 04/01/20 14:30 Demadex - PO 20 mg BIDLASIX ELHAM Administration Home Medications Medication Instructions Recorded RX: Atorvastatin Ca [Lipitor] 40 mg PO HS 03/19/14 RX: Levothyroxine [Synthroid -] 25 mcg PO DAILY 02/13/18 RX: Apixaban [Eliquis] 2.5 mg PO BID #60 tablet 10/02/18 RX: Sevelamer HCl 800 mg PO TID 08/01/19 RX: Torsemide 20 mg PO BID 03/20/20 RX: Docusate Sodium [Colace -] 100 mg PO DAILY 7 Days #7 capsule 03/25/20 RX: Metoprolol Succinate [Toprol 100 mg PO DAILY 30 Days #30 03/25/20 XL -] tab.sr.24h RX: Sacubitril/Valsartan [Entresto 1 tab PO BID 30 Days #60 tablet 03/25/20 24 mg-26 mg Tablet] Carbamide Peroxide 6.5% [Debrox -] 5 drop BID #1 bottle 03/26/20 RX: Amoxicillin - [Amoxicillin 500 mg PO Q12H #14 capsule 03/26/20 500mg Capsule -] 03/23/20 13:55 Urine - Urine Clean Catch Urine Culture - Final Normal Urogenital Mallory ECHO: on 03/29/2020; Left ventricle is normal, Left ventricular systolic function is severely reduced, severe global hypokinesisi of the left ventricle. EJF 30- 35%, right ventricular systolic function is midly reduced. Left atrium is moderately dialated, moderate TR, Moderate As, moderate AR, small pericardial effusion <1cm. ASSESSMENT AND PLAN: This patient is an 89yof with Pmhx of congenital atrophic kidney, ESRD on HD M/W/F , dilated CM , HFrEF(LVEF 15%), CAD s/p PCI, HLP, , AR, AFIB on Eliquis, NIDDM, Hx of right partial mastectomy who presented with SOB and she was found to have acute on chronic systolic heart failure. # Acute on chronic systolic CHF. resolved ; pericardial effusion on CT scan, repeat ECHO no effusion ,cont demadex, entersto, toprol, Ac, #ESRD on HD continue, nephro on the case, renal cysts on CT need to be followed as out pt for further investigations, will refer to renal as out pt . pt is made aware #T2DM with A1c of 6 # HTN controlled #Abdominal discomfort: improved, On CT: no acute pathology, f/u with GI as out pt (apt with Dr. elizalde on 04/13 ) #Constipation continue pericolace and miralax #L otitis media , cerumin plug, on Amoxicillin and debrox ,f/u with ENT as out pt #R lung base atelectasis/ possible calcified granumomatous disease to fe followed as out pt . refer to pulm. pt made aware DVT Px: Eliquis waiting for insurance approval for rehab.
--- NOTE | 2020-04-01 17:29 | PN ---
Physical Exam: SUBJECTIVE: Patient seen and examined. No acute events overnight. Pt received HD yesterday. OBJECTIVE: Vital Signs Period Temp Pulse Resp BP Sys/Dan Pulse Ox Last 24 Hr 97.8 F-98.1 F 88-104 18-20 92-117/43-57 96-97 GENERAL: AAOx3, not in acute distress. HEENT: NCAT, EOMI. Moist mucus membranes. LUNGS: Bibasilar cracklers present. No wheezes. HEART: Regular rate and rhythm, S1, S2 present. No murmurs. ABDOMEN: Soft. Bowel sounds present. Nontender to palpation. Non-distended. EXTREMITIES: Warm, well-perfused. No edema. SKIN: Warm, dry Laboratory Last Values WBC 6.3 K/mm3 (4.0-10.0) 03/31/20 06:10 RBC 3.54 M/mm3 (3.60-5.2) L 03/31/20 06:10 Hgb 11.9 GM/dL (10.7-15.3) 03/31/20 06:10 Hct 36.6 % (32.4-45.2) 03/31/20 06:10 MCV 103.2 fl (80-96) H 03/31/20 06:10 MCH 33.6 pg (25.7-33.7) 03/31/20 06:10 MCHC 32.6 g/dl (32.0-36.0) 03/31/20 06:10 RDW 14.4 % (11.6-15.6) 03/31/20 06:10 Plt Count 94 K/MM3 (134-434) L 03/31/20 06:10 MPV 11.6 fl (7.5-11.1) H 03/31/20 06:10 Absolute Neuts (auto) 4.1 K/mm3 (1.5-8.0) 03/30/20 06:40 Neutrophils % 63.1 % (42.8-82.8) 03/30/20 06:40 Lymphocytes % 24.0 % (8-40) D 03/30/20 06:40 Monocytes % 8.9 % (3.8-10.2) 03/30/20 06:40 Eosinophils % 2.9 % (0-4.5) 03/30/20 06:40 Basophils % 1.1 % (0-2.0) 03/30/20 06:40 Nucleated RBC % 0 % (0-0) 03/30/20 06:40 PT with INR 17.20 SEC (9.7-13.0) H 03/23/20 03:30 INR 1.45 (0.83-1.09) H 03/23/20 03:30 PTT (Actin FS) 33.7 SECONDS (25.2-36.5) 03/23/20 03:30 Sodium Cancelled 04/01/20 09:30 Potassium Cancelled 04/01/20 09:30 Chloride Cancelled 04/01/20 09:30 Carbon Dioxide Cancelled 04/01/20 09:30 Anion Gap Cancelled 04/01/20 09:30 BUN Cancelled 04/01/20 09:30 Creatinine Cancelled 04/01/20 09:30 Est GFR (CKD-EPI)AfAm Cancelled 04/01/20 09:30 Est GFR (CKD-EPI)NonAf Cancelled 04/01/20 09:30 POC Glucometer 112 UNITS (80-120) 03/24/20 17:50 Random Glucose Cancelled 04/01/20 09:30 Hemoglobin A1c % 6.0 % (4.2-6.3) 03/24/20 10:10 Calcium Cancelled 04/01/20 09:30 Phosphorus 2.6 mg/dL (2.5-4.9) 03/30/20 06:40 Magnesium 2.2 mg/dL (1.8-2.4) 03/30/20 06:40 Total Bilirubin 0.8 mg/dL (0.2-1) 03/30/20 11:25 AST 19 U/L (15-37) 03/30/20 11:25 ALT 23 U/L (13-61) 03/30/20 11:25 Alkaline Phosphatase 96 U/L (45-117) 03/30/20 11:25 Creatine Kinase 60 U/L (26-192) 03/23/20 03:30 Troponin I 0.07 ng/ml (0.00-0.05) H 03/29/20 06:44 B-Natriuretic Peptide 33226.4 pg/ml (5-450) H 03/23/20 03:30 Total Protein 6.5 g/dl (6.4-8.2) 03/30/20 11:25 Albumin 3.5 g/dl (3.4-5.0) 03/30/20 11:25 Vitamin B12 692 pg/ml (193-986) 03/23/20 03:30 Serum Folate > 100 ng/mL (3.1-17.5) H 03/23/20 03:30 TSH 3.49 uIU/ml (0.358-3.74) 03/24/20 06:38 Urine Color Yellow 03/23/20 13:55 Urine Appearance Clear 03/23/20 13:55 Urine pH 5.0 (5.0-8.0) 03/23/20 13:55 Ur Specific Emma 1.020 (1.010-1.035) 03/23/20 13:55 Urine Protein 1+ (NEGATIVE) H 03/23/20 13:55 Urine Glucose (UA) Negative (NEGATIVE) 03/23/20 13:55 Urine Ketones Negative (NEGATIVE) 03/23/20 13:55 Urine Blood Negative (NEGATIVE) 03/23/20 13:55 Urine Nitrite Negative (NEGATIVE) 03/23/20 13:55 Urine Bilirubin Negative (NEGATIVE) 03/23/20 13:55 Urine Urobilinogen 0.2 mg/dL (0.2-1.0) 03/23/20 13:55 Ur Leukocyte Esterase Negative (NEGATIVE) 03/23/20 13:55 Urine WBC (Auto) 0 /uL (0-25.8) 03/23/20 13:55 Urine RBC (Auto) 1 /uL (0-23.9) 03/23/20 13:55 U Pathogenic Cast Auto Negative /lpf (NEGATIVE) 03/23/20 13:55 U Epithel Cells (Auto) 5 /uL (0-25.1) 03/23/20 13:55 COVID-19 (FELIX) Not detected (Not Detected) 03/31/20 09:10 Hep A IgM Ab Confirm Negative (Negative) 03/24/20 10:10 Hepatitis A Ab Total Negative (Negative) 03/24/20 10:10 Hep Bs Antigen Negative (Negative) 03/24/20 10:10 Hep Bs Antibody Reactive (.) 03/24/20 10:10 Hep B Core Total Ab Negative (Negative) 03/24/20 10:10 Hep B Core IgM Ab Negative (Negative) 03/24/20 10:10 Hepatitis Be Antibody Negative (Negative) 03/24/20 10:10 Hepatitis Be Antigen Negative (Negative) 03/24/20 10:10 Hep C Ab Diagnostic <0.1 s/co ratio (0.0-0.9) 03/24/20 10:10 Blood Type A NEGATIVE 03/23/20 09:15 Antibody Screen Negative 03/23/20 09:15 Active Medications Acetaminophen (Tylenol -) 650 mg PO Q6H PRN PRN Reason: PAIN Last Admin: 03/28/20 09:54 Dose: 650 mg Documented by: Amoxicillin (Amoxicillin -) 500 mg PO BID [facility] Last Admin: 04/01/20 09:28 Dose: 500 mg Documented by: Apixaban (Eliquis -) 2.5 mg PO BID [facility] Last Admin: 04/01/20 09:29 Dose: 2.5 mg Documented by: Atorvastatin Calcium (Lipitor -) 40 mg PO HS [facility] Last Admin: 03/31/20 21:13 Dose: 40 mg Documented by: Calcitriol (Rocaltrol -) 0.25 mcg PO DAILY [facility] Last Admin: 04/01/20 09:29 Dose: 0.25 mcg Documented by: Docusate Sodium (Colace -) 100 mg PO DAILY [facility] Last Admin: 04/01/20 09:28 Dose: 100 mg Documented by: Sodium Chloride (Normal Saline -) 250 mls @ 3,000 mls/hr IV PRN PRN PRN Reason: Hypotension during Dialysis Stop: 04/02/20 12:35 Levothyroxine Sodium (Synthroid -) 25 mcg PO 0700 [facility] Last Admin: 04/01/20 06:21 Dose: 25 mcg Documented by: Melatonin (Melatonin) 5 mg PO HS PRN PRN Reason: INSOMNIA Last Admin: 04/01/20 00:00 Dose: 5 mg Documented by: Metoprolol Succinate (Toprol Xl -) 100 mg PO DAILY [facility] Last Admin: 04/01/20 09:29 Dose: Not Given Documented by: Pantoprazole Sodium (Protonix -) 40 mg PO DAILY [facility] Last Admin: 04/01/20 09:28 Dose: 40 mg Documented by: Polyethylene Glycol (Miralax (For Daily Use) -) 17 gm PO BID [facility] Last Admin: 04/01/20 09:29 Dose: Not Given Documented by: Sacubitril/Valsartan (Entresto 24 Mg-26 Mg Tablet) 1 tab PO BID [facility] Last Admin: 04/01/20 09:29 Dose: Not Given Documented by: Senna/Docusate Sodium (Pericolace -) 1 tablet PO BID [facility] Last Admin: 04/01/20 09:29 Dose: 1 tablet Documented by: Sevelamer Carbonate (Renvela -) 800 mg PO TIDCM [facility] Last Admin: 04/01/20 17:55 Dose: 800 mg Documented by: Torsemide (Demadex -) 20 mg PO BIDLASIX [facility] Last Admin: 04/01/20 14:30 Dose: 20 mg Documented by: CT abd/pelvis Multiple cystlike lesions within the kidneys, ultrasound investigation is recommended to exclude a solid mass. There is no evidence of hydronephrosis. No evidence of bowel obstruction. Diverticulosis with no evidence to suggest acute diverticulitis. Cardiomegaly with pericardiac effusion as discussed above. Right-sided pleural effusion which appears moderate with atelectasi s/infiltration at the right base. Granulomatous disease. ASSESSMENT/PLAN: 89 year old F with PMH ESRD on HD MWF, congenital atrophic kidney, CAD s/p PCI, CHF, Afib (on Eliquis) and DM presented to the ED with shortness of breath. She is currently admitted for CHF exacerbation secondary to fluid overload. CHF exacerbation 2/2 fluid overload and incomplete fluid removal with HD - Pt received HD 03/31 with improvement in shortness of breath. Will receive HD tomorrow. - Echo reviewed. Small pericardial effusion present (< 1cm). - Cardio consulted. Recommended: c/w toprol-XL, entresto as hemodynamics can tolerate. C/w lipitor, torsemide, eliquis. Abdominal discomfort likely due to IBS - CT abdomen/pelvis as above. No obstruction seen. - f/u with Dr. Finley outpatient. - c/w colace and miralax, senna/docusate Afib - c/w Eliquis and metoprolol DM - Random glucose 112 Cerumen - c/w debrox drops b/l ears - c/w amoxicillin - f/u with ENT as outpatient. CAD - c/w lipitor ESRD - HD on M/W/F - Renal consulted. HD tomorrow. - c/w Renvela, calcitriol - CT abd/pelvis showed renal cyst. To be f/u as outpatient. - Monitor and replete electrolytes FEN - No standing fluids - Monitor and replete electrolytes - Renal diet Ppx - DVT: Eliquis - GI: PPI Dispo: Pt is cleared for dc, but denied [facility] facility authorization. Daughter confirmed she will grain picker pt tomorrow after HD. Visit type - Emergency Visit Emergency Visit: Yes ED Registration Date: 03/23/20 Care time: The patient presented to the Emergency Department on the above date and was hospitalized for further evaluation of their emergent condition. - New Patient This patient is new to me today: No - Critical Care Critical Care patient: No - Medication Review Med list reviewed for High Risk Meds patients 65 and older: Yes ATTENDING PHYSICIAN STATEMENT I saw and evaluated the patient. I reviewed the resident's note and discussed the case with the resident. I agree with the resident's findings and plan as documented. SUBJECTIVE: OBJECTIVE: ASSESSMENT AND PLAN:
[2020-04-01] MEDS ORDERED: PT OWN MED DRAWER 7, Y5N ONE (22:17)
[2020-04-01] MEDS: ATORVASTATIN CA 40 MG TABLET (FP) PO SCH (22:38)
[2020-04-02] MEDS: LEVOTHYROXINE NA 25 MCG TABLET (FP) PO SCH (06:27)
[2020-04-02] MEDS: TORSEMIDE 20 MG TABLET (FP) PO SCH ×2 (06:27→14:32)
--- NOTE | 2020-04-02 06:33 | PN ---
Progress Note (short form) - Note Progress Note: Chief complaint: Events noted, notes reviewed, resting in bed complaining of being cold, denies any chest discomfort, reports dyspnea History of Present Illness: Seen and examined on telemetry. Events noted, notes reviewed, resting in bed com plaining of being cold, denies any chest discomfort, reports dyspnea Echocardiography revealed severe reduction in left ventricular systolic function with estimated LVEF between 30-35%, mildly reduced right ventricular systolic function, moderate bi-atrial dilatation, mild to moderate mitral valve regurgitation, moderate tricuspid valve regurgitation with calculated RVSP of 29 mmHg, mild to moderate aortic valve regurgitation, small pericardial effusion Medical therapy currently includes: Current Medications Generic Name Dose Route Start Last Admin Trade Name Freq PRN Reason Stop Dose Admin Acetaminophen 650 mg 03/26/20 14:49 03/28/20 09:54 Tylenol - PO 650 mg Q6H PRN Administration PAIN Amoxicillin 500 mg 03/26/20 22:00 04/01/20 22:37 Amoxicillin - PO 500 mg BID ELHAM Administration Apixaban 2.5 mg 03/23/20 10:30 04/01/20 22:37 Eliquis - PO 2.5 mg BID ELHAM Administration Atorvastatin Calcium 40 mg 03/23/20 22:00 04/01/20 22:38 Lipitor - PO 40 mg HS ELHAM Administration Calcitriol 0.25 mcg 03/30/20 11:30 04/01/20 09:29 Rocaltrol - PO 0.25 mcg DAILY [facility]HAM Administration Docusate Sodium 100 mg 03/24/20 12:45 04/01/20 09:28 Colace - PO 100 mg DAILY ELHAM Administration Sodium Chloride 250 mls @ 3,000 mls/hr 04/01/20 12:34 Normal Saline - IV 04/02/20 12:35 PRN PRN Hypotension during Dialysis Levothyroxine Sodium 25 mcg 03/23/20 10:30 04/02/20 06:27 Synthroid - PO 25 mcg 0700 [facility]HAM Administration Melatonin 5 mg 03/31/20 23:40 04/01/20 00:00 Melatonin PO 5 mg HS PRN Administration INSOMNIA Metoprolol Succinate 100 mg 03/25/20 10:00 04/01/20 09:29 Toprol Xl - PO Not Given DAILY ELHAM Pantoprazole Sodium 40 mg 03/23/20 16:30 04/01/20 09:28 Protonix - PO 40 mg DAILY [facility]HAM Administration Polyethylene Glycol 17 gm 03/24/20 12:45 04/01/20 22:39 Miralax (For Daily Use) - PO Not Given BID ELHAM Sacubitril/Valsartan 1 tab 03/24/20 22:00 04/01/20 22:38 Entresto 24 Mg-26 Mg Tablet PO 1 tab BID ELHAM Administration Senna/Docusate Sodium 1 tablet 03/24/20 22:00 04/01/20 22:39 Pericolace - PO 1 tablet BID ELHAM Administration Sevelamer Carbonate 800 mg 03/23/20 12:00 04/01/20 17:55 Renvela - PO 800 mg TIDCM ELHAM Administration Torsemide 20 mg 03/23/20 14:00 04/02/20 06:27 Demadex - PO 20 mg BIDLASIX ELHAM Administration Review of Systems - Review of Systems Constitutional: reports: Chills denies: Fever Cardiovascular: as noted above Gastrointestinal: denies: Nausea, Vomiting, Diarrhea, Constipation or Abdominal Pain Genitourinary: No symptoms reported Neurological: No symptoms reported Physical Examination: Vital Signs: Last Vital Signs Temp Pulse Resp BP Pulse Ox 97.5 F L 116 H 20 128/63 92 L 04/02/20 06:00 04/02/20 06:00 04/02/20 06:00 04/02/20 06:00 04/02/20 06:00 Intake & Output 03/30/20 03/31/20 04/01/20 04/02/20 23:59 23:59 23:59 23:59 Intake Total 250 1360 440 Output Total 69667 Balance 250 -76969 440 Weight 155 lb 6.4 oz 156 lb 156 lb 3.2 oz Neck: Supple negative JVD no bruit appreciated Heart: S1 and S2 Regular Rate and Rhythm Lungs: Diminished Breath Sounds at the Bases Abdomen: Soft benign normoactive bowel sounds Extremities: Negative edema Lab Data: CBC, BMP 03/31/20 06:10 04/01/20 09:30 Hepatic Panel Total Bilirubin 0.8 mg/dL (0.2-1) 03/30/20 11:25 AST 19 U/L (15-37) 03/30/20 11:25 ALT 23 U/L (13-61) 03/30/20 11:25 Alkaline Phosphatase 96 U/L (45-117) 03/30/20 11:25 Albumin 3.5 g/dl (3.4-5.0) 03/30/20 11:25 INR, PTT INR 1.45 (0.83-1.09) H 03/23/20 03:30 ASSESSMENT: 1. Acute on chronic class II [place] [employer] classification left ventricular failure related to systolic/diastolic left ventricular dysfunction (dilated cardiomyopathy), clinically resolving 2. Coronary artery disease post percutaneous coronary intervention stenting with evidence of demand ischemic injury angina pectoris 3. Paroxysmal atrial fibrillation/paroxysmal atrial flutter currently on anticoagulation therapy with DOAC's/Eliquis, [id number] score of 6 4. Hypertensive cardiovascular disease 5. Diabetes mellitus 6. Hypercholesterolemia 7. Chronic kidney disease on HD 8. Hypothyroidism 9. Anemia PLAN: 1. Continue Toprol-XL therapy and dose titration as needed, hemodynamics tolerating 2. Continue Entresto therapy and dose titration as needed, hemodynamics tolerating 3. Continue Lipitor therapy 4. Continue Demadex therapy 5. Continue Eliquis therapy at the above noted dosage 6. HD as per renal service 7. As outlined in the prior notes and as per discussion with the patient and her family, plan to continue conservative medical management without any additional intervention Tari Ruiz M.D.
[2020-04-02] MEDS ORDERED: SODIUM CHLORIDE 250 ML IV PRN (10:30)
[2020-04-02 11:21] LABS: HEMATOCRIT 35.5 % (32.4-45.2); HEMOGLOBIN 11.5 GM/dL (10.7-15.3); MCH 33.4 pg (25.7-33.7); MCHC 32.5 g/dl (32.0-36.0); MEAN CELL VOLUME 102.9 fl (80-96); MEAN PLT VOLUME 11.6 fl (7.5-11.1); PLATELET COUNT 105 K/MM3 (134-434); RBC 3.44 M/mm3 (3.60-5.2); RDW 14.3 % (11.6-15.6); WHITE BLOOD COUNT 6.8 K/mm3 (4.0-10.0)
[2020-04-02 11:53] LABS: BLOOD UREA NITROGEN 31.7 mg/dL (7-18); CALCIUM 8.6 mg/dL (8.5-10.1); CREATININE 4.1 mg/dL (0.55-1.3); PHOSPHOROUS 2.6 mg/dL (2.5-4.9); POTASSIUM 3.6 mmol/L (3.5-5.1)
--- NOTE | 2020-04-02 12:03 | DS ---
Physical Exam: SUBJECTIVE: Patient seen and examined. No acute events overnight. Pt is scheduled for HD today. Daughter confirmed that she will cotton picker pt and hire private home health aid, as pt was denied for placement in a senior care facility. OBJECTIVE: Vital Signs Period Temp Pulse Resp BP Sys/Dan Pulse Ox Last 24 Hr 97.5 F-97.8 F 91-116 18-20 108-128/45-80 92-96 PHYSICAL EXAM GENERAL: AAOx3, not in acute distress. HEENT: NCAT, EOMI. Moist mucus membranes. LUNGS: Bibasilar cracklers present. No wheezes. HEART: Regular rate and rhythm, S1, S2 present. No murmurs. ABDOMEN: Soft. Bowel sounds present. Nontender to palpation. Non-distended. EXTREMITIES: Warm, well-perfused. No edema. SKIN: Warm, dry LABS Laboratory Last Values WBC 6.8 K/mm3 (4.0-10.0) 04/02/20 09:50 RBC 3.44 M/mm3 (3.60-5.2) L 04/02/20 09:50 Hgb 11.5 GM/dL (10.7-15.3) 04/02/20 09:50 Hct 35.5 % (32.4-45.2) 04/02/20 09:50 MCV 102.9 fl (80-96) H 04/02/20 09:50 MCH 33.4 pg (25.7-33.7) 04/02/20 09:50 MCHC 32.5 g/dl (32.0-36.0) 04/02/20 09:50 RDW 14.3 % (11.6-15.6) 04/02/20 09:50 Plt Count 105 K/MM3 (134-434) L 04/02/20 09:50 MPV 11.6 fl (7.5-11.1) H 04/02/20 09:50 Absolute Neuts (auto) 4.1 K/mm3 (1.5-8.0) 03/30/20 06:40 Neutrophils % 63.1 % (42.8-82.8) 03/30/20 06:40 Lymphocytes % 24.0 % (8-40) D 03/30/20 06:40 Monocytes % 8.9 % (3.8-10.2) 03/30/20 06:40 Eosinophils % 2.9 % (0-4.5) 03/30/20 06:40 Basophils % 1.1 % (0-2.0) 03/30/20 06:40 Nucleated RBC % 0 % (0-0) 03/30/20 06:40 PT with INR 17.20 SEC (9.7-13.0) H 03/23/20 03:30 INR 1.45 (0.83-1.09) H 03/23/20 03:30 PTT (Actin FS) 33.7 SECONDS (25.2-36.5) 03/23/20 03:30 Sodium 135 mmol/L (136-145) L 04/02/20 09:50 Potassium 3.6 mmol/L (3.5-5.1) 04/02/20 09:50 Chloride 98 mmol/L (98-107) 04/02/20 09:50 Carbon Dioxide 29 mmol/L (21-32) 04/02/20 09:50 Anion Gap 7 MMOL/L (8-16) L 04/02/20 09:50 BUN 31.7 mg/dL (7-18) H 04/02/20 09:50 Creatinine 4.1 mg/dL (0.55-1.3) H 04/02/20 09:50 Est GFR (CKD-EPI)AfAm 10.51 04/02/20 09:50 Est GFR (CKD-EPI)NonAf 9.06 04/02/20 09:50 POC Glucometer 112 UNITS (80-120) 03/24/20 17:50 Random Glucose 138 mg/dL (74-106) H 04/02/20 09:50 Hemoglobin A1c % 6.0 % (4.2-6.3) 03/24/20 10:10 Calcium 8.6 mg/dL (8.5-10.1) 04/02/20 09:50 Phosphorus 2.6 mg/dL (2.5-4.9) 04/02/20 09:50 Magnesium 2.2 mg/dL (1.8-2.4) 03/30/20 06:40 Total Bilirubin 0.8 mg/dL (0.2-1) 03/30/20 11:25 AST 19 U/L (15-37) 03/30/20 11:25 ALT 23 U/L (13-61) 03/30/20 11:25 Alkaline Phosphatase 96 U/L (45-117) 03/30/20 11:25 Creatine Kinase 60 U/L (26-192) 03/23/20 03:30 Troponin I 0.07 ng/ml (0.00-0.05) H 03/29/20 06:44 B-Natriuretic Peptide 49020.4 pg/ml (5-450) H 03/23/20 03:30 Total Protein 6.5 g/dl (6.4-8.2) 03/30/20 11:25 Albumin 3.5 g/dl (3.4-5.0) 03/30/20 11:25 Vitamin B12 692 pg/ml (193-986) 03/23/20 03:30 Serum Folate > 100 ng/mL (3.1-17.5) H 03/23/20 03:30 TSH 3.49 uIU/ml (0.358-3.74) 03/24/20 06:38 Urine Color Yellow 03/23/20 13:55 Urine Appearance Clear 03/23/20 13:55 Urine pH 5.0 (5.0-8.0) 03/23/20 13:55 Ur Specific [place] 1.020 (1.010-1.035) 03/23/20 13:55 Urine Protein 1+ (NEGATIVE) H 03/23/20 13:55 Urine Glucose (UA) Negative (NEGATIVE) 03/23/20 13:55 Urine Ketones Negative (NEGATIVE) 03/23/20 13:55 Urine Blood Negative (NEGATIVE) 03/23/20 13:55 Urine Nitrite Negative (NEGATIVE) 03/23/20 13:55 Urine Bilirubin Negative (NEGATIVE) 03/23/20 13:55 Urine Urobilinogen 0.2 mg/dL (0.2-1.0) 03/23/20 13:55 Ur Leukocyte Esterase Negative (NEGATIVE) 03/23/20 13:55 Urine WBC (Auto) 0 /uL (0-25.8) 03/23/20 13:55 Urine RBC (Auto) 1 /uL (0-23.9) 03/23/20 13:55 U Pathogenic Cast Auto Negative /lpf (NEGATIVE) 03/23/20 13:55 U Epithel Cells (Auto) 5 /uL (0-25.1) 03/23/20 13:55 COVID-19 (FELIX) Not detected (Not Detected) 03/31/20 09:10 Hep A IgM Ab Confirm Negative (Negative) 03/24/20 10:10 Hepatitis A Ab Total Negative (Negative) 03/24/20 10:10 Hep Bs Antigen Negative (Negative) 03/24/20 10:10 Hep Bs Antibody Reactive (.) 03/24/20 10:10 Hep B Core Total Ab Negative (Negative) 03/24/20 10:10 Hep B Core IgM Ab Negative (Negative) 03/24/20 10:10 Hepatitis Be Antibody Negative (Negative) 03/24/20 10:10 Hepatitis Be Antigen Negative (Negative) 03/24/20 10:10 Hep C Ab Diagnostic <0.1 s/co ratio (0.0-0.9) 03/24/20 10:10 Blood Type A NEGATIVE 03/23/20 09:15 Antibody Screen Negative 03/23/20 09:15 HOSPITAL COURSE: 89 year old F w/ PMH of congenital atrophic kidney, ESRD on HD MWF, HFrEF(LVEF 15%), CAD s/p PCI, Afib on Eliquis, NIDDM, h/o R partial mastectomy(5ys prior), presented to the ED for SOB. Pt had HD prior to her arrival to the ED without any complications.She also reported abdominal discomfort. Pt admitted for CHF exacerbation secondary to fluid overload and incomplete fluid removal with HD, which markedly improved her symptoms. Pt also received CT abd/pelvis to assess her abdominal discomfort. No evidence of acute pathology or obstruction found. Pt instructed to f/u with GI as an outpatient. During this admission, pt found to have increased amount of cerumen in b/l ears and was treated with debrox and amoxicillin. Pt was hemodynamically stable and medically optimized for discharge. She was instructed to follow up as an outpatient for further management. Date of Admission:03/23/20 Date of Discharge: 04/02/20 Minutes to complete discharge: 36 Discharge Summary Problems reviewed: Yes Reason For Visit: SHORTNESS OF BREATH Current Active Problems Acute on chronic diastolic heart failure (Acute) Pericardial effusion (Acute) ESRD (end stage renal disease) on dialysis (Chronic) Condition: Improved - Instructions Diet, Activity, Other Instructions: Hospital course: You came to the ER due to shortness of breath and abdominal discomfort. Your shortness of breath resolved after receiving dialysis while you were admitted. You will need to continue your dialysis as regularly scheduled. We also performed performed an XRay of your abdomen, which did not show any abnormalities. You also received medicine to help you relieve your bowels. We consulted a environmental maintenance worker, and we changed some of your home medications for optimum blood pressure and atrial fibrillation control. You did a CT abdomen and pelvis due to abdominal pain. Findings include the following: -Multiple cysts within the kidneys. 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 Your condition has now improved, and you are stable to return home. You will need to go for dialysis sessions on your regular scheduled days. Medications: - Please take Metoprolol Succinate (Toprol XL) 100mg by mouth once aday, this will replace your previous Metoprolol Tartrate - Please take Entresto TWICE a day (once in the morning and once in the evening) instead of once a day. - Please take Colace 100mg by mouth once a day, for constipation. - Please continue taking all your other medications as previously prescribed. Follow-up: - Next dialysis session on 04/05 - Please follow up with Dr. Ramirez within 2 weeks - Please follow up with your primary care physician, Dr. Padilla, within 1 week - Please follow up with your environmental maintenance worker within 2 weeks. You had imaging of your heart showing a small amount of fluid surrounding the heart; this will need to be followed up. A referral to Dr. Gutierrez has been provided. - If your constipation is not relieved with medication, please inform your primary care physician - Please follow up with your primary care physician for the multiple cysts in your kidney and granulomatous disease of your spleen found on CT abdomen. - Please follow up with your Ear Nost and Throat physician on April 08, 2020 at 3:00PM. - Keep your appointment with Dr. Finley on 04/13/20. you might need further d iagnostic testing - Please use the ear drops for the wax - Please follow up with Dr. Lester, the ear doctor please see him. Additional Instructions: -You are being discharged to a rehabilitation center. -Please return to the Emergency Department if you experience worsening pain, fevers, chills, shortness of breath, or chest pain, or if you experience any worsening, new or concerning symptoms. Referrals: Walker Padilla MD [Primary Care Provider] - 1 Week Connor Finley MD [Staff Physician] - 04/13/20 Miguel Ramirez MD [Staff Physician] - 1 Week (ESRD, HD) Ralf Gutierrez MD [Staff Physician] - 2 Weeks (Hx of AFib, medication switched to Met Succ from Tartrater and Entresto daily to BID) Tj Greenwood MD [Staff Physician] - 04/08/20 3:00 pm Disposition: VNS/HOME HEALTH CARE - Home Medications Comprehensive Discharge Medication List: Ambulatory Orders Atorvastatin Ca [Lipitor] 40 mg PO HS 03/19/14 Levothyroxine [Synthroid -] 25 mcg PO DAILY 02/13/18 Apixaban [Eliquis] 2.5 mg PO BID #60 tablet 10/02/18 Sevelamer HCl 800 mg PO TID 08/01/19 Torsemide 20 mg PO BID 03/20/20 Docusate Sodium [Colace -] 100 mg PO DAILY 7 Days #7 capsule 03/25/20 Metoprolol Succinate [Toprol XL -] 100 mg PO DAILY 30 Days #30 tab.sr.24h 03/25/20 Sacubitril/Valsartan [Entresto 24 mg-26 mg Tablet] 1 tab PO BID 30 Days #60 tablet 03/25/20 Amoxicillin - [Amoxicillin 500mg Capsule -] 500 mg PO Q12H #14 capsule 03/26/20 Carbamide Peroxide 6.5% [Debrox -] 5 drop BID #1 bottle 03/26/20 This patient is new to me today: No Emergency Visit: Yes ED Registration Date: 03/23/20 Care time: The patient presented to the Emergency Department on the above date and was hospitalized for further evaluation of their emergent condition. Critical Care patient: No - Discharge Referral Referred to [facility] Med [facility].C[facility] No ATTENDING PHYSICIAN STATEMENT I saw and evaluated the patient. I reviewed the resident's note and discussed the case with the resident. I agree with the resident's findings and plan as documented. SUBJECTIVE: OBJECTIVE: ASSESSMENT AND PLAN:
[2020-04-02] MEDS: SEVELAMER CARBONATE 800 MG TAB (FP) PO SCH ×2 (14:29→14:30)
[2020-04-02] MEDS: CALCITRIOL 0.25 MCG CAPSULE (FP) PO SCH (14:30)
[2020-04-02] MEDS: DOCUSATE SODIUM 100 MG CAPSULE (FP) PO SCH (14:30)
[2020-04-02] MEDS: SENNOSIDES/DOCUSATE COMBO (SENNA PLUS) TABLET (UD) PO SCH (14:31)
[2020-04-02] MEDS: AMOXICILLIN 500 MG CAPSULE (FP) PO SCH (14:31)
[2020-04-02] MEDS: POLYETHYLENE GLYCOL 3350 119 GM BTL PO SCH (14:31)
[2020-04-02] MEDS: PANTOPRAZOLE 40 MG TABLET PO SCH (14:31)
[2020-04-02] MEDS: APIXABAN 2.5 MG TABLET PO SCH (14:31)
[2020-04-02] MEDS: SACUBITRIL/VALSARTAN 24 MG-26 MG TABLET PO SCH (14:31)
[2020-04-02 14:32] VITALS: BP 114/63; PULSE 81; TEMP 97.8
--- NOTE | 2020-04-02 19:09 | PN ---
Teaching Attending Note Name of Resident: Shanda Erickson ATTENDING PHYSICIAN STATEMENT I saw and evaluated the patient. I reviewed the resident's note and discussed the case with the resident. I agree with the resident's findings and plan as documented. SUBJECTIVE: Patient is comfortable with NAD. having dialysis today OBJECTIVE: Vital Signs Temperature 97.8 F 04/02/20 14:31 Pulse Rate 81 04/02/20 14:31 Respiratory Rate 18 04/02/20 14:31 Blood Pressure 114/63 04/02/20 14:31 O2 Sat by Pulse Oximetry (%) 94 L 04/02/20 10:00 PE: per resident's note CBCD WBC 6.8 K/mm3 (4.0-10.0) 04/02/20 09:50 RBC 3.44 M/mm3 (3.60-5.2) L 04/02/20 09:50 Hgb 11.5 GM/dL (10.7-15.3) 04/02/20 09:50 Hct 35.5 % (32.4-45.2) 04/02/20 09:50 MCV 102.9 fl (80-96) H 04/02/20 09:50 MCHC 32.5 g/dl (32.0-36.0) 04/02/20 09:50 RDW 14.3 % (11.6-15.6) 04/02/20 09:50 Plt Count 105 K/MM3 (134-434) L 04/02/20 09:50 MPV 11.6 fl (7.5-11.1) H 04/02/20 09:50 CMP Sodium 135 mmol/L (136-145) L 04/02/20 09:50 Potassium 3.6 mmol/L (3.5-5.1) 04/02/20 09:50 Chloride 98 mmol/L (98-107) 04/02/20 09:50 Carbon Dioxide 29 mmol/L (21-32) 04/02/20 09:50 Anion Gap 7 MMOL/L (8-16) L 04/02/20 09:50 BUN 31.7 mg/dL (7-18) H 04/02/20 09:50 Creatinine 4.1 mg/dL (0.55-1.3) H 04/02/20 09:50 Random Glucose 138 mg/dL (74-106) H 04/02/20 09:50 Calcium 8.6 mg/dL (8.5-10.1) 04/02/20 09:50 Total Bilirubin 0.8 mg/dL (0.2-1) 03/30/20 11:25 AST 19 U/L (15-37) 03/30/20 11:25 ALT 23 U/L (13-61) 03/30/20 11:25 Alkaline Phosphatase 96 U/L (45-117) 03/30/20 11:25 Total Protein 6.5 g/dl (6.4-8.2) 03/30/20 11:25 Albumin 3.5 g/dl (3.4-5.0) 03/30/20 11:25 CARDIAC ENZYMES Creatine Kinase 60 U/L (26-192) 03/23/20 03:30 Troponin I 0.07 ng/ml (0.00-0.05) H 03/29/20 06:44 Home Medications Medication Instructions Recorded Atorvastatin Ca [Lipitor] 40 mg PO HS 03/19/14 Levothyroxine [Synthroid -] 25 mcg PO DAILY 02/13/18 Apixaban [Eliquis] 2.5 mg PO BID #60 tablet 10/02/18 Sevelamer HCl 800 mg PO TID 08/01/19 Torsemide 20 mg PO BID 03/20/20 Docusate Sodium [Colace -] 100 mg PO DAILY 7 Days #7 capsule 03/25/20 Metoprolol Succinate [Toprol XL -] 100 mg PO DAILY 30 Days #30 03/25/20 tab.sr.24h Sacubitril/Valsartan [Entresto 24 1 tab PO BID 30 Days #60 tablet 03/25/20 mg-26 mg Tablet] Carbamide Peroxide 6.5% [Debrox -] 5 drop BID #1 bottle 03/26/20 03/23/20 13:55 Urine - Urine Clean Catch Urine Culture - Final Normal Urogenital Mallory ECHO: on 03/29/2020; Left ventricle is normal, Left ventricular systolic function is severely reduced, severe global hypokinesisi of the left ventricle. EJF 30- 35%, right ventricular systolic function is midly reduced. Left atrium is moderately dialated, moderate TR, Moderate As, moderate AR, small pericardial effusion <1cm. ASSESSMENT AND PLAN: This patient is an 89yof with Pmhx of congenital atrophic kidney, ESRD on HD M/W/F , dilated CM , HFrEF(LVEF 15%), CAD s/p PCI, HLP, , AR, AFIB on Eliquis, NIDDM, Hx of right partial mastectomy who presented with SOB and she was found to have acute on chronic systolic heart failure. # Acute on chronic systolic CHF. resolved ; pericardial effusion on CT scan, repeat ECHO no effusion ,cont demadex, entersto, toprol, Ac, #ESRD on HD continue, nephro on the case, renal cysts on CT need to be followed as out pt for further investigations, will refer to renal as out pt . pt is made aware #T2DM with A1c of 6 # HTN controlled #Abdominal discomfort: improved, On CT: no acute pathology, f/u with GI as out pt (apt with Dr. elizalde on 04/13 ) #Constipation continue pericolace and miralax #L otitis media , cerumin plug, completed Amoxicillin, continue debrox ,f/u with ENT as out pt #R lung base atelectasis/ possible calcified granumomatous disease to fe followed as out pt . refer to pulm. pt made aware DVT Px: Eliquis patient was dc'd home , since was not able to go to rehab since insurance did not approve for rehab.
== END 2020-04-02 15:26 | disposition home health service (06) | DRG 291 ==
LOC: JER 02:43 → SUPCPDRO 02:43 → JERBED 06:20 → J4W 18:03
PROVIDERS: ADMIT Internal Medicine; ATTEND Internal Medicine
PROC: 5A1D70Z Performance of Urinary Filtration, Intermittent, Less than 6 Hours Per Day (ICD-10-PCS; principal; 2020-04-02)
DX: I13.2 Hypertensive heart and chronic kidney disease with heart failure and with stage 5 chronic kidney disease, or end stage renal disease (principal); I50.23 Acute on chronic systolic (congestive) heart failure; N18.6 End stage renal disease; I48.20 Chronic atrial fibrillation, unspecified; I24.8 Other forms of acute ischemic heart disease; J98.11 Atelectasis; I31.3 Pericardial effusion (noninflammatory); E11.9 Type 2 diabetes mellitus without complications; N26.1 Atrophy of kidney (terminal); I42.0 Dilated cardiomyopathy; E03.9 Hypothyroidism, unspecified; K59.00 Constipation, unspecified; H66.92 Otitis media, unspecified, left ear; Z95.5 Presence of coronary angioplasty implant and graft; D64.9 Anemia, unspecified; H61.20 Impacted cerumen, unspecified ear; Z99.2 Dependence on renal dialysis; E87.70 Fluid overload, unspecified; E78.5 Hyperlipidemia, unspecified; I25.119 Atherosclerotic heart disease of native coronary artery with unspecified angina pectoris
CPT/HCPCS: 36415; 71045-TC-FY; 74176-TC; 74240-TC-FY; 80048; 80053; 81003; 82550; 82607; 82746; 82962; 83036; 83735; 83880; 84100; 84443; 84484; 85025; 85027; 85610; 85730; 86704; 86706; 86707; 86708; 86709; 86803; 86850; 86900; 86901; 87086; 87340; 93005; 93010; 93306-TC; 97116-GP; 97161-GP; 99285-25; U0003

== ENCOUNTER 2020-08-24 14:37 | Inpatient (IN) | payer BC, OTHER ==
[2020-08-24 15:58] VITALS: BMI 29.2
[2020-08-24 17:25] LABS: BASO % 0.3 % (0-2.0); EOS % 0.2 % (0-4.5); HEMATOCRIT 35.4 % (32.4-45.2); HEMOGLOBIN 11.5 GM/dL (10.7-15.3); LYMPH % 4.2 % (8-40); MCHC 32.4 g/dl (32.0-36.0); MEAN CELL VOLUME 104.9 fl (80-96); MEAN PLT VOLUME 10.3 fl (7.5-11.1); MONO % 4.8 % (3.8-10.2); NEUT % 90.5 % (42.8-82.8); PLATELET COUNT 168 K/MM3 (134-434); RBC 3.37 M/mm3 (3.60-5.2); RDW 15.8 % (11.6-15.6); WHITE BLOOD COUNT 16.7 K/mm3 (4.0-10.0)
[2020-08-24] MEDS ORDERED: LACTATED RINGERS SOLUTION 1000 ML INFUS.BAG IV ONE (17:30)
[2020-08-24 17:34] LABS: INR 2.32 (0.83-1.09); PROTHROMBIN TIME (PATIENT) 27.4 SEC (9.7-13.0)
[2020-08-24 17:36] LABS: ACTIVATED PTT 34.1 SECONDS (25.2-36.5)
[2020-08-24 17:37] LABS: POTASSIUM 4.1 mmol/L (3.5-5.1)
[2020-08-24 17:40] LABS: BLOOD UREA NITROGEN 35.5 mg/dL (7-18)
[2020-08-24 17:43] LABS: CREATININE 3.8 mg/dL (0.55-1.3)
[2020-08-24 17:45] LABS: TOT PROT 6.4 g/dl (6.4-8.2)
[2020-08-24] MEDS ORDERED: VANCOMYCIN 1 GM in D5W (PRE-DOCKED) 1,000 MG/250 ML IVPB ONE (18:55)
[2020-08-24] MEDS ORDERED: PIPERACILLIN/TAZOB 3.375 GM 3.375 GM in DEXTROSE 5%-WATER - 50 ML IVPB ONE (18:55)
[2020-08-24] MEDS ORDERED: PIPERACILLIN/TAZOB 3.375 GM 3.375 GM/50 ML BAG IVPB ONE (19:28)
[2020-08-24] MEDS ORDERED: VANCOMYCIN 1 GRAM (PRE-DOCKED) 1,000 MG/250 ML BAG IVPB ONE (21:35)
[2020-08-24] MEDS ORDERED: MORPHINE SULFATE 2 MG/ML VIAL ONE (23:26)
[2020-08-24] MEDS: MORPHINE SULFATE 2 MG/ML VIAL IVPUSH PRN (23:32)
[2020-08-25] MEDS ORDERED: NYSTATIN POWDER 100,000 UNITS/GM - 15 GM TOPICAL POWDER TP ONE (04:45)
[2020-08-25] MEDS: PIPERACILLIN/TAZOB 2.25 GM 2.25 GM in DEXTROSE 5%-WATER - 50 ML IVPB SCH ×2 (05:49→10:43)
[2020-08-25] MEDS: INSULIN SLIDING SCALE (NOVOLOG) 1 VIAL SQ SCH ×4 (06:21→21:54)
[2020-08-25 09:13] LABS: BASO % 0.3 % (0-2.0); EOS % 0.7 % (0-4.5); HEMATOCRIT 34.7 % (32.4-45.2); HEMOGLOBIN 11.4 GM/dL (10.7-15.3); LYMPH % 6.3 % (8-40); MCH 34.2 pg (25.7-33.7); MCHC 32.7 g/dl (32.0-36.0); MEAN CELL VOLUME 104.6 fl (80-96); MEAN PLT VOLUME 9.7 fl (7.5-11.1); MONO % 6.3 % (3.8-10.2); NEUT % 86.4 % (42.8-82.8); PLATELET COUNT 143 K/MM3 (134-434); RBC 3.32 M/mm3 (3.60-5.2); RDW 15.7 % (11.6-15.6)
[2020-08-25 09:23] LABS: INR 1.79 (0.83-1.09); PROTHROMBIN TIME (PATIENT) 21.6 SEC (9.7-13.0)
[2020-08-25 09:25] LABS: ACTIVATED PTT 31.9 SECONDS (25.2-36.5)
[2020-08-25] MEDS: APIXABAN 2.5 MG TABLET PO SCH ×2 (09:29→21:54)
[2020-08-25] MEDS ORDERED: SODIUM CHLORIDE 250 ML IV PRN (09:40)
[2020-08-25 09:42] LABS: POTASSIUM 3.8 mmol/L (3.5-5.1)
[2020-08-25 09:58] LABS: ALBUMIN 2.5 g/dl (3.4-5.0); BLOOD UREA NITROGEN 41.4 mg/dL (7-18); CALCIUM 8.3 mg/dL (8.5-10.1)
[2020-08-25 10:01] LABS: CREATININE 4.4 mg/dL (0.55-1.3); PHOSPHOROUS 5.5 mg/dL (2.5-4.9)
[2020-08-25 10:02] LABS: BILIRUBIN,TOTAL 0.8 mg/dL (0.2-1); TOT PROT 5.8 g/dl (6.4-8.2)
[2020-08-25] MEDS: SEVELAMER CARBONATE 800 MG TAB (FP) PO SCH (17:45)
[2020-08-25] MEDS ORDERED: VANCOMYCIN 1 GM in D5W (PRE-DOCKED) 1,000 MG/250 ML IVPB SCH (22:00)
[2020-08-26] MEDS: MORPHINE SULFATE 2 MG/ML VIAL IVPUSH PRN ×3 (01:59→18:58)
[2020-08-26] MEDS ORDERED: PIPERACILLIN/TAZOB 2.25 GM 2.25 GM in DEXTROSE 5%-WATER - 50 ML IVPB SCH (02:00)
[2020-08-26] MEDS: INSULIN SLIDING SCALE (NOVOLOG) 1 VIAL SQ SCH ×4 (07:10→22:06)
[2020-08-26] MEDS: APIXABAN 2.5 MG TABLET PO SCH ×2 (09:13→22:05)
[2020-08-26] MEDS: SEVELAMER CARBONATE 800 MG TAB (FP) PO SCH ×3 (09:13→17:21)
[2020-08-26 10:23] LABS: POTASSIUM 3.9 mmol/L (3.5-5.1)
[2020-08-26] MEDS: LEVOTHYROXINE NA 25 MCG TABLET (FP) PO SCH (10:27)
[2020-08-26] MEDS: LORATADINE 10 MG TABLET PO SCH (10:27)
[2020-08-26] MEDS: DOCUSATE SODIUM 100 MG CAPSULE (FP) PO SCH (10:27)
[2020-08-26 10:34] LABS: ALBUMIN 2.7 g/dl (3.4-5.0); BLOOD UREA NITROGEN 30.5 mg/dL (7-18); CALCIUM 8.8 mg/dL (8.5-10.1); MAGNESIUM 1.9 mg/dL (1.8-2.4)
[2020-08-26 10:37] LABS: PHOSPHOROUS 4.8 mg/dL (2.5-4.9)
[2020-08-26 10:38] LABS: CREATININE 3.3 mg/dL (0.55-1.3)
[2020-08-26 10:39] LABS: BILIRUBIN,TOTAL 0.8 mg/dL (0.2-1); TOT PROT 6.1 g/dl (6.4-8.2)
[2020-08-26] MEDS ORDERED: SODIUM CHLORIDE 250 ML IV PRN (12:20)
[2020-08-26 13:48] LABS: BASO % 0.7 % (0-2.0); EOS % 1.7 % (0-4.5); HEMATOCRIT 39.2 % (32.4-45.2); HEMOGLOBIN 12.8 GM/dL (10.7-15.3); LYMPH % 10.2 % (8-40); MCHC 32.6 g/dl (32.0-36.0); MEAN CELL VOLUME 104.4 fl (80-96); MEAN PLT VOLUME 9.7 fl (7.5-11.1); MONO % 9.5 % (3.8-10.2); NEUT % 77.9 % (42.8-82.8); PLATELET COUNT 135 K/MM3 (134-434); RBC 3.75 M/mm3 (3.60-5.2); RDW 15.6 % (11.6-15.6); WHITE BLOOD COUNT 7.8 K/mm3 (4.0-10.0)
[2020-08-26] MEDS ORDERED: VANCOMYCIN 1 GM in D5W (PRE-DOCKED) 1,000 MG/250 ML IVPB SCH (22:00)
[2020-08-26] MEDS: ATORVASTATIN CA 40 MG TABLET (FP) PO SCH (22:05)
[2020-08-26] MEDS: ACETAMINOPHEN 325 MG TABLET (FP) PO PRN (22:07)
[2020-08-27] MEDS: LEVOTHYROXINE NA 25 MCG TABLET (FP) PO SCH (06:13)
[2020-08-27] MEDS: INSULIN SLIDING SCALE (NOVOLOG) 1 VIAL SQ SCH ×4 (06:14→22:38)
[2020-08-27] MEDS: SEVELAMER CARBONATE 800 MG TAB (FP) PO SCH ×3 (09:03→17:05)
[2020-08-27] MEDS: DOCUSATE SODIUM 100 MG CAPSULE (FP) PO SCH (09:04)
[2020-08-27] MEDS: APIXABAN 2.5 MG TABLET PO SCH ×2 (09:04→22:27)
[2020-08-27] MEDS: LORATADINE 10 MG TABLET PO SCH (09:04)
[2020-08-27 11:32] LABS: HEMATOCRIT 37.8 % (32.4-45.2); HEMOGLOBIN 12.2 GM/dL (10.7-15.3); MCH 34.2 pg (25.7-33.7); MCHC 32.3 g/dl (32.0-36.0); MEAN CELL VOLUME 105.9 fl (80-96); PLATELET COUNT 130 K/MM3 (134-434); RBC 3.57 M/mm3 (3.60-5.2); WHITE BLOOD COUNT 8.4 K/mm3 (4.0-10.0)
[2020-08-27 11:50] LABS: POTASSIUM 4.1 mmol/L (3.5-5.1)
[2020-08-27 11:51] LABS: BLOOD UREA NITROGEN 44.1 mg/dL (7-18); CALCIUM 8.7 mg/dL (8.5-10.1)
[2020-08-27 11:55] LABS: CREATININE 4.5 mg/dL (0.55-1.3); PHOSPHOROUS 5.6 mg/dL (2.5-4.9)
[2020-08-27] MEDS ORDERED: SEVELAMER CARBONATE 800 MG TAB (FP) PO SCH (16:30)
[2020-08-27] MEDS ORDERED: ACETAMINOPHEN WITH CODEINE 300MG/30MG TABLET PO ONE (17:20)
[2020-08-27] MEDS ORDERED: VANCOMYCIN 1 GM in D5W (PRE-DOCKED) 1,000 MG/250 ML IVPB ONE (17:48)
[2020-08-27] MEDS: ATORVASTATIN CA 40 MG TABLET (FP) PO SCH (22:28)
[2020-08-28] MEDS ORDERED: CALAMINE 8% TOPICAL LOTION 177 ML BOTTLE TP ONE (01:28)
[2020-08-28] MEDS: LEVOTHYROXINE NA 25 MCG TABLET (FP) PO SCH (06:11)
[2020-08-28] MEDS: INSULIN SLIDING SCALE (NOVOLOG) 1 VIAL SQ SCH ×4 (06:13→22:31)
[2020-08-28] MEDS: APIXABAN 2.5 MG TABLET PO SCH ×3 (09:13→22:34)
[2020-08-28] MEDS: LORATADINE 10 MG TABLET PO SCH (09:13)
[2020-08-28] MEDS: DOCUSATE SODIUM 100 MG CAPSULE (FP) PO SCH (09:13)
[2020-08-28] MEDS: SEVELAMER CARBONATE 800 MG TAB (FP) PO SCH ×3 (09:14→17:42)
[2020-08-28] MEDS ORDERED: PETROLATUM, WHITE 30 GM TUBE TP SCH (10:00)
[2020-08-28] MEDS: GABAPENTIN 100 MG CAPSULE PO SCH ×3 (10:07→22:46)
[2020-08-28] MEDS: SENNOSIDES 8.6MG TABLET (FP) PO SCH ×3 (10:07→22:40)
[2020-08-28] MEDS ORDERED: LIDOCAINE HCL 1%, 10 MG/ML (50 mL VIAL) SQ STA (12:00)
[2020-08-28] MEDS ORDERED: VANCOMYCIN/WATER BAGS 1,250 MG/250 ML BAG IVPB SCH (12:00)
[2020-08-28] MEDS ORDERED: LIDOCAINE HCL 1%, 10 MG/ML (20ML VIAL) INF STA (12:00)
[2020-08-28] MEDS: ATORVASTATIN CA 40 MG TABLET (FP) PO SCH ×2 (21:11→22:39)
[2020-08-28] MEDS: METOPROLOL TARTRATE 5 MG/5 ML VIAL IVPUSH SCH (22:00)
[2020-08-28] MEDS ORDERED: METOPROLOL TARTRATE 25 MG TABLET (FP) PO SCH (22:00)
[2020-08-29] MEDS: METOPROLOL TARTRATE 5 MG/5 ML VIAL IVPUSH SCH ×6 (03:28→23:14)
[2020-08-29] MEDS: LEVOTHYROXINE NA 25 MCG TABLET (FP) PO SCH (06:56)
[2020-08-29] MEDS: INSULIN SLIDING SCALE (NOVOLOG) 1 VIAL SQ SCH ×3 (06:56→18:16)
[2020-08-29] MEDS: GABAPENTIN 100 MG CAPSULE PO SCH ×3 (07:00→23:14)
[2020-08-29] MEDS: SEVELAMER CARBONATE 800 MG TAB (FP) PO SCH ×3 (10:13→18:15)
[2020-08-29] MEDS: LORATADINE 10 MG TABLET PO SCH (10:14)
[2020-08-29] MEDS: SENNOSIDES 8.6MG TABLET (FP) PO SCH ×2 (10:14→23:15)
[2020-08-29] MEDS: APIXABAN 2.5 MG TABLET PO SCH ×2 (10:14→23:15)
[2020-08-29] MEDS: MINERAL OIL/PET HY-PHL TOPICAL OINTMENT 454 GM JAR TP SCH (10:15)
[2020-08-29] MEDS: DOCUSATE SODIUM 100 MG CAPSULE (FP) PO SCH (10:51)
[2020-08-29] MEDS ORDERED: MINERAL OIL ENEMA 133 ML ENEMA PR ONE (14:01)
[2020-08-29] MEDS ORDERED: ONDANSETRON 4 MG/2 ML VIAL IVPUSH ONE (14:01)
[2020-08-29] MEDS: VANCOMYCIN HCL 1,250 MG in DEXTROSE 5%-WATER - 1,250 MG/250 ML IVPB IVPB SCH (14:48)
[2020-08-29] MEDS ORDERED: SODIUM CHLORIDE 250 ML IV PRN (15:14)
[2020-08-29] MEDS: ATORVASTATIN CA 40 MG TABLET (FP) PO SCH (23:15)
[2020-08-29] MEDS ORDERED: SODIUM CHLORIDE 500 ML IV STA (23:32)
[2020-08-30] MEDS: INSULIN SLIDING SCALE (NOVOLOG) 1 VIAL SQ SCH ×5 (00:20→22:20)
[2020-08-30] MEDS: METOPROLOL TARTRATE 5 MG/5 ML VIAL IVPUSH SCH ×6 (02:03→22:20)
[2020-08-30] MEDS: GABAPENTIN 100 MG CAPSULE PO SCH (05:05)
[2020-08-30] MEDS: LEVOTHYROXINE NA 25 MCG TABLET (FP) PO SCH (07:15)
[2020-08-30] MEDS: MINERAL OIL/PET HY-PHL TOPICAL OINTMENT 454 GM JAR TP SCH (10:30)
[2020-08-30] MEDS: SEVELAMER CARBONATE 800 MG TAB (FP) PO SCH ×3 (10:39→18:48)
[2020-08-30] MEDS ORDERED: DEXTROSE 50%-WATER - 25 GM/50 ML VIAL IVPUSH ONE ×2 (10:55→11:45)
[2020-08-30 11:07] LABS: BASO % 0.9 % (0-2.0); EOS % 0.9 % (0-4.5); HEMOGLOBIN 13.4 GM/dL (10.7-15.3); LYMPH % 14.7 % (8-40); MCH 33.4 pg (25.7-33.7); MCHC 31.1 g/dl (32.0-36.0); MEAN CELL VOLUME 107.3 fl (80-96); MEAN PLT VOLUME 10.5 fl (7.5-11.1); MONO % 8.9 % (3.8-10.2); NEUT % 74.6 % (42.8-82.8); PLATELET COUNT 118 K/MM3 (134-434); RBC 4.01 M/mm3 (3.60-5.2); RDW 16.5 % (11.6-15.6); WHITE BLOOD COUNT 9.3 K/mm3 (4.0-10.0)
[2020-08-30 11:26] LABS: CALCIUM 9.3 mg/dL (8.5-10.1)
[2020-08-30 11:27] LABS: ALBUMIN 2.9 g/dl (3.4-5.0); BLOOD UREA NITROGEN 53.7 mg/dL (7-18); MAGNESIUM 2.2 mg/dL (1.8-2.4)
[2020-08-30 11:30] LABS: CREATININE 5.1 mg/dL (0.55-1.3); PHOSPHOROUS 7.4 mg/dL (2.5-4.9)
[2020-08-30 11:31] LABS: BILIRUBIN,TOTAL 1.1 mg/dL (0.2-1); TOT PROT 6.2 g/dl (6.4-8.2)
[2020-08-30] MEDS: APIXABAN 2.5 MG TABLET PO SCH ×2 (11:44→21:14)
[2020-08-30] MEDS: LORATADINE 10 MG TABLET PO SCH (11:44)
[2020-08-30] MEDS: DOCUSATE SODIUM 100 MG CAPSULE (FP) PO SCH (11:44)
[2020-08-30] MEDS: SENNOSIDES 8.6MG TABLET (FP) PO SCH (11:44)
[2020-08-30] MEDS ORDERED: SODIUM CHLORIDE 250 ML IV PRN (13:53)
[2020-08-30] MEDS ORDERED: GABAPENTIN 100 MG CAPSULE PO SCH (14:00)
[2020-08-30] MEDS: ALBUMIN HUMAN 25% 12.5 GM/50 ML VIAL IVPB SCH ×4 (14:45→16:15)
[2020-08-30 14:54] LABS: ANISOCYTOSIS 1+; MACROCYTOSIS 0; PLATELET ESTIMATE DECREASED
[2020-08-30] MEDS ORDERED: PT OWN MED DRAWER 7, Y5N ONE (17:44)
[2020-08-30] MEDS: VANCOMYCIN HCL 1,250 MG in DEXTROSE 5%-WATER - 1,250 MG/250 ML IVPB IVPB SCH (18:47)
[2020-08-30] MEDS: ATORVASTATIN CA 40 MG TABLET (FP) PO SCH (21:14)
[2020-08-30] MEDS ORDERED: INSULIN (NOVOLOG) ASPART 100 UNITS/ML 10ML VIAL ONE (21:53)
[2020-08-31] MEDS: METOPROLOL TARTRATE 5 MG/5 ML VIAL IVPUSH SCH ×4 (02:58→14:27)
[2020-08-31] MEDS: LEVOTHYROXINE NA 25 MCG TABLET (FP) PO SCH (06:20)
[2020-08-31] MEDS ORDERED: INSULIN (NOVOLOG) ASPART 100 UNITS/ML 10ML VIAL ONE (06:44)
[2020-08-31] MEDS: INSULIN SLIDING SCALE (NOVOLOG) 1 VIAL SQ SCH ×4 (06:51→21:38)
[2020-08-31 10:01] LABS: EOS % 1.6 % (0-4.5); HEMATOCRIT 39.2 % (32.4-45.2); HEMOGLOBIN 12.6 GM/dL (10.7-15.3); LYMPH % 14.4 % (8-40); MCH 34.4 pg (25.7-33.7); MCHC 32.1 g/dl (32.0-36.0); MEAN CELL VOLUME 107.4 fl (80-96); MEAN PLT VOLUME 10.2 fl (7.5-11.1); MONO % 10.8 % (3.8-10.2); NEUT % 72.2 % (42.8-82.8); PLATELET COUNT 99 K/MM3 (134-434); RBC 3.65 M/mm3 (3.60-5.2); RDW 16.2 % (11.6-15.6); WHITE BLOOD COUNT 8.6 K/mm3 (4.0-10.0)
[2020-08-31 10:24] LABS: POTASSIUM 4.2 mmol/L (3.5-5.1)
[2020-08-31 10:28] LABS: ALBUMIN 3.4 g/dl (3.4-5.0)
[2020-08-31 10:29] LABS: BLOOD UREA NITROGEN 35.6 mg/dL (7-18)
[2020-08-31 10:32] LABS: CREATININE 3.6 mg/dL (0.55-1.3); PHOSPHOROUS 3.9 mg/dL (2.5-4.9)
[2020-08-31 10:33] LABS: BILIRUBIN,TOTAL 1.2 mg/dL (0.2-1); TOT PROT 6.4 g/dl (6.4-8.2)
[2020-08-31] MEDS: APIXABAN 2.5 MG TABLET PO SCH ×2 (10:40→21:34)
[2020-08-31] MEDS: LORATADINE 10 MG TABLET PO SCH (10:41)
[2020-08-31] MEDS: SEVELAMER CARBONATE 800 MG TAB (FP) PO SCH ×3 (10:41→17:03)
[2020-08-31] MEDS: DOCUSATE SODIUM 100 MG CAPSULE (FP) PO SCH ×2 (10:42→10:55)
[2020-08-31] MEDS: MINERAL OIL/PET HY-PHL TOPICAL OINTMENT 454 GM JAR TP SCH (11:43)
[2020-08-31] MEDS ORDERED: PT OWN MED DRAWER 7, Y5N ONE ×2 (12:11→13:57)
[2020-08-31] MEDS ORDERED: SODIUM CHLORIDE 0.9% 500 ML INFUS.BAG IV ONE (15:00)
[2020-08-31 16:09] LABS: ATYPICAL pANCA <1:20 titer (Neg:<1:20); C-ANCA <1:20 titer (Neg:<1:20)
[2020-08-31 16:09] LABS: ATYPICAL pANCA <1:20 titer (Neg:<1:20); C-ANCA <1:20 titer (Neg:<1:20)
[2020-08-31] MEDS: AMINO ACIDS/PROTEIN HYDROLYS 30 ML LIQUID.PKT PO SCH (17:03)
[2020-08-31] MEDS: ATORVASTATIN CA 40 MG TABLET (FP) PO SCH (21:34)
[2020-08-31] MEDS: MELATONIN 5 MG TABLETS PO PRN (22:49)
[2020-09-01] MEDS: LEVOTHYROXINE NA 25 MCG TABLET (FP) PO SCH (06:14)
[2020-09-01] MEDS: INSULIN SLIDING SCALE (NOVOLOG) 1 VIAL SQ SCH ×4 (06:16→21:04)
[2020-09-01 08:22] LABS: EOS % 1.4 % (0-4.5); HEMATOCRIT 38.8 % (32.4-45.2); HEMOGLOBIN 12.6 GM/dL (10.7-15.3); LYMPH % 15.9 % (8-40); MCH 34.6 pg (25.7-33.7); MCHC 32.5 g/dl (32.0-36.0); MEAN CELL VOLUME 106.7 fl (80-96); MEAN PLT VOLUME 10.4 fl (7.5-11.1); MONO % 10.1 % (3.8-10.2); NEUT % 71.6 % (42.8-82.8); PLATELET COUNT 93 K/MM3 (134-434); RBC 3.64 M/mm3 (3.60-5.2); RDW 16.4 % (11.6-15.6); WHITE BLOOD COUNT 8.1 K/mm3 (4.0-10.0)
[2020-09-01] MEDS: AMINO ACIDS/PROTEIN HYDROLYS 30 ML LIQUID.PKT PO SCH ×2 (08:30→16:38)
[2020-09-01 08:37] LABS: POTASSIUM 4.6 mmol/L (3.5-5.1)
[2020-09-01 08:43] LABS: ALBUMIN 3.2 g/dl (3.4-5.0); BLOOD UREA NITROGEN 42.2 mg/dL (7-18); MAGNESIUM 2.2 mg/dL (1.8-2.4)
[2020-09-01 08:46] LABS: CREATININE 4.3 mg/dL (0.55-1.3); PHOSPHOROUS 4.7 mg/dL (2.5-4.9)
[2020-09-01 08:48] LABS: TOT PROT 6.5 g/dl (6.4-8.2)
[2020-09-01] MEDS: SEVELAMER CARBONATE 800 MG TAB (FP) PO SCH ×3 (10:21→16:37)
[2020-09-01] MEDS ORDERED: SODIUM CHLORIDE 250 ML IV PRN (10:30)
[2020-09-01] MEDS: ALBUMIN HUMAN 25% 12.5 GM/50 ML VIAL IVPB SCH ×3 (10:30→13:15)
[2020-09-01] MEDS ORDERED: PT OWN MED DRAWER 7, Y5N ONE ×3 (13:03→14:49)
[2020-09-01] MEDS: APIXABAN 2.5 MG TABLET PO SCH ×2 (13:25→21:39)
[2020-09-01] MEDS: LORATADINE 10 MG TABLET PO SCH (13:25)
[2020-09-01] MEDS: DOCUSATE SODIUM 100 MG CAPSULE (FP) PO SCH (13:26)
[2020-09-01] MEDS: MINERAL OIL/PET HY-PHL TOPICAL OINTMENT 454 GM JAR TP SCH (14:13)
[2020-09-01] MEDS: MIDODRINE HCL 2.5 MG TABLET PO SCH ×3 (14:34→17:32)
[2020-09-01] MEDS: ACETAMINOPHEN 325 MG TABLET (FP) PO PRN (20:51)
[2020-09-01] MEDS: MELATONIN 5 MG TABLETS PO PRN (21:39)
[2020-09-01] MEDS: ATORVASTATIN CA 40 MG TABLET (FP) PO SCH (21:39)
[2020-09-01] MEDS: SENNOSIDES 8.6MG TABLET (FP) PO SCH (21:40)
[2020-09-01] MEDS ORDERED: GLYCERIN 1 RECTAL SUPPOSITORY, ADULT RC ONE (23:08)
[2020-09-02] MEDS: ACETAMINOPHEN 325 MG TABLET (FP) PO PRN (03:53)
[2020-09-02] MEDS: LEVOTHYROXINE NA 25 MCG TABLET (FP) PO SCH (06:00)
[2020-09-02] MEDS: INSULIN SLIDING SCALE (NOVOLOG) 1 VIAL SQ SCH ×4 (06:03→22:05)
[2020-09-02] MEDS ORDERED: BISACODYL 5 MG TABLET.DR (FP) PO ONE (06:32)
[2020-09-02] MEDS: AMINO ACIDS/PROTEIN HYDROLYS 30 ML LIQUID.PKT PO SCH ×2 (08:35→18:06)
[2020-09-02] MEDS: SEVELAMER CARBONATE 800 MG TAB (FP) PO SCH ×4 (08:43→19:52)
[2020-09-02] MEDS: MINERAL OIL/PET HY-PHL TOPICAL OINTMENT 454 GM JAR TP SCH (10:26)
[2020-09-02] MEDS: APIXABAN 2.5 MG TABLET PO SCH ×2 (10:27→22:06)
[2020-09-02] MEDS: MIDODRINE HCL 2.5 MG TABLET PO SCH ×3 (10:27→18:12)
[2020-09-02] MEDS: LORATADINE 10 MG TABLET PO SCH (10:27)
[2020-09-02] MEDS: DOCUSATE SODIUM 100 MG CAPSULE (FP) PO SCH (10:28)
[2020-09-02] MEDS: POLYETHYLENE GLYCOL 3350 119 GM BTL PO SCH (10:29)
[2020-09-02] MEDS: SENNOSIDES 8.6MG TABLET (FP) PO SCH ×2 (10:29→22:07)
[2020-09-02] MEDS: metoPROLOL SUCCINATE 25 MG TAB.SR.24H (FP) PO SCH (12:41)
[2020-09-02] MEDS ORDERED: PT OWN MED DRAWER 7, Y5N ONE (18:08)
[2020-09-02] MEDS ORDERED: INSULIN (NOVOLOG) ASPART 100 UNITS/ML 10ML VIAL ONE (20:47)
[2020-09-02] MEDS: ATORVASTATIN CA 40 MG TABLET (FP) PO SCH (22:05)
[2020-09-03] MEDS: MELATONIN 5 MG TABLETS PO PRN (03:02)
[2020-09-03] MEDS: LEVOTHYROXINE NA 25 MCG TABLET (FP) PO SCH (06:41)
[2020-09-03] MEDS: INSULIN SLIDING SCALE (NOVOLOG) 1 VIAL SQ SCH ×4 (06:41→21:42)
[2020-09-03] MEDS: AMINO ACIDS/PROTEIN HYDROLYS 30 ML LIQUID.PKT PO SCH ×2 (07:49→16:50)
[2020-09-03] MEDS ORDERED: PT OWN MED DRAWER 7, Y5N ONE (09:06)
[2020-09-03] MEDS: MINERAL OIL/PET HY-PHL TOPICAL OINTMENT 454 GM JAR TP SCH (09:17)
[2020-09-03] MEDS: SEVELAMER CARBONATE 800 MG TAB (FP) PO SCH ×3 (09:17→17:01)
[2020-09-03] MEDS: APIXABAN 2.5 MG TABLET PO SCH ×2 (09:18→21:15)
[2020-09-03] MEDS: LORATADINE 10 MG TABLET PO SCH (09:18)
[2020-09-03] MEDS: DOCUSATE SODIUM 100 MG CAPSULE (FP) PO SCH (09:19)
[2020-09-03] MEDS: MIDODRINE HCL 2.5 MG TABLET PO SCH ×3 (09:19→17:18)
[2020-09-03] MEDS: POLYETHYLENE GLYCOL 3350 119 GM BTL PO SCH (09:19)
[2020-09-03] MEDS: SENNOSIDES 8.6MG TABLET (FP) PO SCH ×2 (09:20→21:15)
[2020-09-03] MEDS: metoPROLOL SUCCINATE 25 MG TAB.SR.24H (FP) PO SCH (09:20)
[2020-09-03] MEDS ORDERED: traMADol HCL 50 MG TABLET PO ONE (11:14)
[2020-09-03] MEDS ORDERED: SODIUM CHLORIDE 250 ML IV PRN (12:33)
[2020-09-03] MEDS ORDERED: GLUCOSE PO ONE (13:00)
[2020-09-03] MEDS ORDERED: [UNRECOGNIZED DRUG - OTHER] PO ONE (13:00)
[2020-09-03] MEDS ORDERED: MORPHINE SULFATE 2 MG/ML VIAL SQ ONE (13:03)
[2020-09-03] MEDS ORDERED: [UNRECOGNIZED DRUG - OTHER] PO PRN (13:34)
[2020-09-03] MEDS ORDERED: GLUCOSE PO PRN (13:34)
[2020-09-03 15:16] LABS: POTASSIUM 5.6 mmol/L (3.5-5.1)
[2020-09-03 15:20] LABS: ALBUMIN 3.5 g/dl (3.4-5.0); CALCIUM 9.7 mg/dL (8.5-10.1)
[2020-09-03 15:24] LABS: CREATININE 4.9 mg/dL (0.55-1.3)
[2020-09-03 15:25] LABS: TOT PROT 6.5 g/dl (6.4-8.2)
[2020-09-03] MEDS ORDERED: LORazepam 1 MG TABLET PO ONE (15:46)
[2020-09-03] MEDS: ATORVASTATIN CA 40 MG TABLET (FP) PO SCH (21:15)
[2020-09-04] MEDS: INSULIN SLIDING SCALE (NOVOLOG) 1 VIAL SQ SCH ×4 (06:20→23:06)
[2020-09-04] MEDS: LEVOTHYROXINE NA 25 MCG TABLET (FP) PO SCH (06:20)
[2020-09-04] MEDS: AMINO ACIDS/PROTEIN HYDROLYS 30 ML LIQUID.PKT PO SCH ×2 (08:21→19:14)
[2020-09-04] MEDS: SEVELAMER CARBONATE 800 MG TAB (FP) PO SCH ×3 (08:21→19:15)
[2020-09-04] MEDS: ALBUMIN HUMAN 25% 12.5 GM/50 ML VIAL IVPB SCH ×4 (11:15→14:39)
[2020-09-04] MEDS ORDERED: SODIUM CHLORIDE 250 ML IV PRN (11:23)
[2020-09-04 11:41] LABS: HEMATOCRIT 40.2 % (32.4-45.2); HEMOGLOBIN 12.9 GM/dL (10.7-15.3); MCH 34.4 pg (25.7-33.7); MEAN CELL VOLUME 107.3 fl (80-96); MEAN PLT VOLUME 10.2 fl (7.5-11.1); PLATELET COUNT 103 K/MM3 (134-434); RBC 3.75 M/mm3 (3.60-5.2); RDW 16.4 % (11.6-15.6); WHITE BLOOD COUNT 19.4 K/mm3 (4.0-10.0)
[2020-09-04] MEDS ORDERED: MORPHINE SULFATE 2 MG/ML VIAL SQ ONE (11:45)
[2020-09-04] MEDS: MIDODRINE HCL 2.5 MG TABLET PO SCH ×2 (11:56→19:14)
[2020-09-04] MEDS: MINERAL OIL/PET HY-PHL TOPICAL OINTMENT 454 GM JAR TP SCH (11:57)
[2020-09-04] MEDS: SENNOSIDES 8.6MG TABLET (FP) PO SCH ×2 (11:57→23:06)
[2020-09-04] MEDS: LORATADINE 10 MG TABLET PO SCH (11:57)
[2020-09-04] MEDS: DOCUSATE SODIUM 100 MG CAPSULE (FP) PO SCH (11:57)
[2020-09-04] MEDS: APIXABAN 2.5 MG TABLET PO SCH ×2 (11:57→22:10)
[2020-09-04] MEDS: POLYETHYLENE GLYCOL 3350 119 GM BTL PO SCH (11:57)
[2020-09-04] MEDS: metoPROLOL SUCCINATE 25 MG TAB.SR.24H (FP) PO SCH (11:58)
[2020-09-04 12:39] LABS: BLOOD UREA NITROGEN 70.8 mg/dL (7-18); CALCIUM 8.8 mg/dL (8.5-10.1)
[2020-09-04 12:43] LABS: CREATININE 5.6 mg/dL (0.55-1.3); PHOSPHOROUS 7.7 mg/dL (2.5-4.9)
[2020-09-04] MEDS: METOPROLOL TARTRATE 5 MG/5 ML VIAL IVPUSH SCH ×2 (19:19→22:11)
[2020-09-04] MEDS ORDERED: PT OWN MED DRAWER 7, Y5N ONE (19:37)
[2020-09-04 20:25] LABS: MAGNESIUM 2.4 mg/dL (1.8-2.4)
[2020-09-04] MEDS: ATORVASTATIN CA 40 MG TABLET (FP) PO SCH (22:10)
[2020-09-04] MEDS: PIPERACILLIN/TAZOB 2.25 GM 2.25 GM in DEXTROSE 5%-WATER - 50 ML IVPB SCH (23:07)
[2020-09-05] MEDS: PIPERACILLIN/TAZOB 2.25 GM 2.25 GM in DEXTROSE 5%-WATER - 50 ML IVPB SCH ×3 (02:00→17:16)
[2020-09-05] MEDS: METOPROLOL TARTRATE 5 MG/5 ML VIAL IVPUSH SCH ×6 (02:00→22:52)
[2020-09-05] MEDS: INSULIN SLIDING SCALE (NOVOLOG) 1 VIAL SQ SCH ×4 (06:27→22:53)
[2020-09-05] MEDS: LEVOTHYROXINE NA 25 MCG TABLET (FP) PO SCH (06:30)
[2020-09-05] MEDS: AMINO ACIDS/PROTEIN HYDROLYS 30 ML LIQUID.PKT PO SCH ×2 (08:00→16:35)
[2020-09-05] MEDS: SEVELAMER CARBONATE 800 MG TAB (FP) PO SCH ×3 (08:00→16:35)
[2020-09-05] MEDS: POLYETHYLENE GLYCOL 3350 119 GM BTL PO SCH (09:32)
[2020-09-05] MEDS: MINERAL OIL/PET HY-PHL TOPICAL OINTMENT 454 GM JAR TP SCH (09:32)
[2020-09-05] MEDS: LORATADINE 10 MG TABLET PO SCH (09:32)
[2020-09-05] MEDS: DOCUSATE SODIUM 100 MG CAPSULE (FP) PO SCH (09:32)
[2020-09-05] MEDS: APIXABAN 2.5 MG TABLET PO SCH ×2 (09:33→22:52)
[2020-09-05] MEDS: MIDODRINE HCL 2.5 MG TABLET PO SCH ×3 (09:33→17:15)
[2020-09-05] MEDS: SENNOSIDES 8.6MG TABLET (FP) PO SCH ×2 (09:33→23:54)
[2020-09-05] MEDS: MORPHINE SULFATE 2 MG/ML VIAL SQ PRN ×2 (10:31→20:32)
[2020-09-05] MEDS: metoPROLOL SUCCINATE 25 MG TAB.SR.24H (FP) PO SCH (10:52)
[2020-09-05 11:28] LABS: BASO % 0.4 % (0-2.0); EOS % 0.1 % (0-4.5); HEMATOCRIT 40.4 % (32.4-45.2); HEMOGLOBIN 12.8 GM/dL (10.7-15.3); MCH 34.5 pg (25.7-33.7); MCHC 31.7 g/dl (32.0-36.0); MEAN CELL VOLUME 108.9 fl (80-96); MEAN PLT VOLUME 10.7 fl (7.5-11.1); MONO % 3.6 % (3.8-10.2); NEUT % 87.9 % (42.8-82.8); PLATELET COUNT 58 K/MM3 (134-434); RBC 3.72 M/mm3 (3.60-5.2); RDW 16.7 % (11.6-15.6); WHITE BLOOD COUNT 16.7 K/mm3 (4.0-10.0)
[2020-09-05 11:52] LABS: POTASSIUM 4.8 mmol/L (3.5-5.1)
[2020-09-05 11:56] LABS: ANISOCYTOSIS 1+; MACROCYTOSIS 1+; PLATELET ESTIMATE DECREASED
[2020-09-05 11:58] LABS: ALBUMIN 3.6 g/dl (3.4-5.0); BLOOD UREA NITROGEN 46.6 mg/dL (7-18); CALCIUM 8.9 mg/dL (8.5-10.1); MAGNESIUM 2.3 mg/dL (1.8-2.4)
[2020-09-05 12:00] LABS: CREATININE 4.3 mg/dL (0.55-1.3); PHOSPHOROUS 5.3 mg/dL (2.5-4.9)
[2020-09-05 12:02] LABS: TOT PROT 6.3 g/dl (6.4-8.2)
[2020-09-05] MEDS ORDERED: GLUCOSE PO ONE (15:42)
[2020-09-05] MEDS ORDERED: [UNRECOGNIZED DRUG - OTHER] PO ONE (15:42)
[2020-09-05] MEDS ORDERED: DEXTROSE 50%-WATER 25 GM/50 ML DISP.SYRIN ONE (23:06)
[2020-09-05] MEDS ORDERED: MORPHINE SULFATE 2 MG/ML VIAL IM ONE (23:10)
[2020-09-06] MEDS ORDERED: DEXTROSE 50%-WATER - 25 GM/50 ML VIAL IVPUSH ONE ×2 (00:02→06:18)
[2020-09-06] MEDS ORDERED: DEXTROSE 5%-WATER - 50 ML IVPB ONE (00:47)
[2020-09-06] MEDS ORDERED: PIPERACILLIN/TAZOBACTAM 2.25 GM VIAL IVPB ONE (00:47)
[2020-09-06] MEDS: METOPROLOL TARTRATE 5 MG/5 ML VIAL IVPUSH SCH ×3 (02:53→11:52)
[2020-09-06] MEDS: PIPERACILLIN/TAZOB 2.25 GM 2.25 GM in DEXTROSE 5%-WATER - 50 ML IVPB SCH ×2 (02:54→11:53)
[2020-09-06] MEDS ORDERED: DEXTROSE 50%-WATER 25 GM/50 ML DISP.SYRIN ONE ×2 (06:13→11:19)
[2020-09-06] MEDS ORDERED: DEXTROSE 50%-WATER - 25 GM/50 ML VIAL IVPUSH PRN ×2 (06:18→12:10)
[2020-09-06] MEDS: INSULIN SLIDING SCALE (NOVOLOG) 1 VIAL SQ SCH ×2 (06:24→11:53)
[2020-09-06] MEDS: LEVOTHYROXINE NA 25 MCG TABLET (FP) PO SCH (06:27)
[2020-09-06 07:05] VITALS: TEMP 97
[2020-09-06 08:53] VITALS: BP 97/78; PULSE 125
[2020-09-06] MEDS: AMINO ACIDS/PROTEIN HYDROLYS 30 ML LIQUID.PKT PO SCH (09:07)
[2020-09-06] MEDS: SEVELAMER CARBONATE 800 MG TAB (FP) PO SCH ×2 (09:07→11:53)
[2020-09-06] MEDS: MINERAL OIL/PET HY-PHL TOPICAL OINTMENT 454 GM JAR TP SCH (11:52)
[2020-09-06] MEDS: DOCUSATE SODIUM 100 MG CAPSULE (FP) PO SCH (11:52)
[2020-09-06] MEDS: APIXABAN 2.5 MG TABLET PO SCH (11:52)
[2020-09-06] MEDS: POLYETHYLENE GLYCOL 3350 119 GM BTL PO SCH (11:52)
[2020-09-06] MEDS: SENNOSIDES 8.6MG TABLET (FP) PO SCH (11:53)
[2020-09-06] MEDS: metoPROLOL SUCCINATE 25 MG TAB.SR.24H (FP) PO SCH (11:53)
[2020-09-06] MEDS: MIDODRINE HCL 2.5 MG TABLET PO SCH (11:53)
[2020-09-06] MEDS: MORPHINE SULFATE 2 MG/ML VIAL SQ PRN (12:32)
[2020-09-06] MEDS ORDERED: MORPHINE SULFATE/0.9% NACL/PF 100 MG/100 ML BAG IVPB SCH (12:45)
[2020-09-06] MEDS ORDERED: PCA PUMP NR ONE ×2 (15:27→18:13)
== END 2020-09-06 18:19 | disposition expired | DRG 871 ==
LOC: JER 14:37 → JERBED 21:16 → J6WEST-2 08-25 04:07 → J8W 08-30 15:35 → J6S 09-03 11:55
PROVIDERS: ADMIT Internal Medicine; ATTEND Internal Medicine
PROC: 5A1D70Z Performance of Urinary Filtration, Intermittent, Less than 6 Hours Per Day (ICD-10-PCS; 2020-08-25)
PROC: 5A1D70Z Performance of Urinary Filtration, Intermittent, Less than 6 Hours Per Day (ICD-10-PCS; 2020-08-27)
PROC: 0JPT3WZ Removal of Totally Implantable Vascular Access Device from Trunk Subcutaneous Tissue and Fascia, Percutaneous Approach (ICD-10-PCS; principal; 2020-08-28)
PROC: 0HBKXZX Excision of Right Lower Leg Skin, External Approach, Diagnostic (ICD-10-PCS; 2020-08-30)
PROC: 5A1D70Z Performance of Urinary Filtration, Intermittent, Less than 6 Hours Per Day (ICD-10-PCS; 2020-08-30)
PROC: 5A1D70Z Performance of Urinary Filtration, Intermittent, Less than 6 Hours Per Day (ICD-10-PCS; 2020-09-01)
PROC: 5A1D70Z Performance of Urinary Filtration, Intermittent, Less than 6 Hours Per Day (ICD-10-PCS; 2020-09-04)
DX: A41.89 Other specified sepsis (principal); J18.9 Pneumonia, unspecified organism; N18.6 End stage renal disease; R65.21 Severe sepsis with septic shock; Q60.4 Renal hypoplasia, bilateral; E46 Unspecified protein-calorie malnutrition; I24.8 Other forms of acute ischemic heart disease; I13.2 Hypertensive heart and chronic kidney disease with heart failure and with stage 5 chronic kidney disease, or end stage renal disease; I50.42 Chronic combined systolic (congestive) and diastolic (congestive) heart failure; E87.2 Acidosis; I42.0 Dilated cardiomyopathy; I48.19 Other persistent atrial fibrillation; K21.9 Gastro-esophageal reflux disease without esophagitis; E78.5 Hyperlipidemia, unspecified; E03.9 Hypothyroidism, unspecified; D72.829 Elevated white blood cell count, unspecified; Z68.29 Body mass index [BMI] 29.0-29.9, adult; R94.31 Abnormal electrocardiogram [ECG] [EKG]; E11.22 Type 2 diabetes mellitus with diabetic chronic kidney disease; R21 Rash and other nonspecific skin eruption; R94.5 Abnormal results of liver function studies; S81.802A Unspecified open wound, left lower leg, initial encounter; I25.119 Atherosclerotic heart disease of native coronary artery with unspecified angina pectoris; L95.8 Other vasculitis limited to the skin; Z91.14 Patient's other noncompliance with medication regimen; I35.0 Nonrheumatic aortic (valve) stenosis; D63.1 Anemia in chronic kidney disease; R00.0 Tachycardia, unspecified; E11.649 Type 2 diabetes mellitus with hypoglycemia without coma; Z95.5 Presence of coronary angioplasty implant and graft; Z85.3 Personal history of malignant neoplasm of breast; Z99.2 Dependence on renal dialysis
CPT/HCPCS: 36415; 71045-TC-FY; 74176-TC; 74230-TC-FY; 80048; 80053; 82310; 82607; 82746; 82962; 83520; 83605; 83735; 83970; 84100; 84443; 84484; 85025; 85027; 85610; 85651; 85730; 86140; 86160; 86162; 86256; 86705; 86708; 86803; 87040; 87340; 87804; 88305-TC; 92611-GN; 93005; 93010; 93306-TC; 97161-GP; 99285-25; C9803; G0480; P9047; U0003